=== PATIENT | female | born 1935 | race Caucasian/White ===

== ENCOUNTER → 2017-09-02 13:52 | Outpatient (CLI) | payer MEDICARE, OTHER, SELFPAY ==
--- NOTE | 2017-09-02 14:00 | ECHOD_ITS ---
Reason For Study: CAD/ASHD Procedure This was a 2D Doppler, Color Flow transthoracic echocardiogram. Exam performed in department. Left Ventricle Normal LV size. Sigmoid septum. Left ventricular systolic function is normal. The estimated ejection fraction is 60 %. Transmitral diastolic flow velocities suggest mild (stage 1) diastolic dysfunction (reversed pattern). No regional wall motion abnormalities noted. Right Ventricle Normal RV size. ICD or pacer leads identified within the right ventricle. Normal systolic function. Atria The left atrium is severely enlarged. The right atrium is mildly enlarged. Mitral Valve There is moderate mitral annular calcification. Mild-Moderate (1-2+) eccentric mitral valve insufficiency. An annuloplasty ring is noted in the mitral position. Tricuspid Valve Normal tricuspid valve. Mild (1+) tricuspid valve insufficiency. Pulmonary artery systolic pressure is 30 mmHg. Aortic Valve Trisinus/trileaflet aortic valve. Pulmonic Valve Normal pulmonic valve. Great Vessels Normal aortic root. The pulmonary artery is normal size. Normal inferior vena cava. Pericardium/Pleural No pericardial effusion. Medication 22 gauge I.V. with prn adaptor inserted into right arm. Diluted definity 2ml given slow IV push to enhance endocardial definition. MMode/2D Measurements & Calculations LVIDd: 3.0 cm IVSd: 2.1 cm Ao root diam: 3.7 cm LVIDs: 1.8 cm LVPWd: 1.1 cm LA dimension: 4.8 cm FS: 39.5 % LAV(MOD-bp): 100.7 ml LAV(MOD-bp) Indexed: 52.7 ml/m2 LA A4 area: 31.7 cm2 LAV(MOD-sp2): 78.3 ml LAV(MOD-sp4): 123.0 ml Time Measurements MV dec time: 0.23 sec Doppler Measurements & Calculations MV E max lavon: 127.3 cm/sec Lat Peak E' Lavon: 7.9 cm/sec MV V2 max: 190.7 cm/sec MV A max lavon: 163.9 cm/sec E/E' lat: 16.0 MV max P.5 mmHg MV E/A: 0.78 MV V2 mean: 110.1 cm/sec MV mean P.7 mmHg MV V2 VTI: 51.2 cm MV P1/2t max lavon: 146.4 cm/sec Ao V2 max: 138.7 cm/sec LV V1 max: 120.9 cm/sec MV P1/2t: 87.5 msec Ao max P.7 mmHg LV V1 max P.8 mmHg MV dec slope: 490.2 cm/sec2 Ao V2 mean: 94.7 cm/sec LV V1 mean P.0 mmHg MVA(P1/2t): 2.5 cm2 Ao mean P.0 mmHg LV V1 mean: 79.7 cm/sec Ao V2 VTI: 28.9 cm LV V1 VTI: 25.5 cm PA V2 max: 82.8 cm/sec TR max lavon: 262.0 cm/sec TR max P.5 mmHg Interpretation Summary Normal LV size. Left ventricular systolic function is normal. The estimated ejection fraction is 60 %. There is moderate mitral annular calcification. An annuloplasty ring is noted in the mitral position. Mild-Moderate (1-2+) eccentric mitral valve insufficiency. Contrast injection was performed. Ordering Physician: Gisele Pitts Referring Physician: Gisele Pitts Performed By: Jhony Tracey RCS
== END ==
PROVIDERS: Family Provider Internal Medicine; PCP Internal Medicine; Visit Provider Physician Assistant Medical
DX: R00.1 Bradycardia, unspecified (principal)
CPT/HCPCS: 93306; Q9957; A4216

== ENCOUNTER → 2017-09-26 09:01 | Outpatient (CLI) | payer MEDICARE, OTHER, SELFPAY ==
[2017-09-26 09:48] LABS: 24HR UR TOTAL VOLUME 1600 ml; Calcium Urine pH Range 1; Urine Calcium (Random) < 5.0 (Not Estab.)
== END ==
PROVIDERS: PCP Nurse Practitioner Family; Visit Provider Internal Medicine
DX: I10 Essential (primary) hypertension (principal); E78.4 Other hyperlipidemia; E03.9 Hypothyroidism, unspecified; M85.80 Other specified disorders of bone density and structure, unspecified site
CPT/HCPCS: 81050; 82340

== ENCOUNTER → 2018-01-07 08:44 | Outpatient (CLI) | payer MEDICARE, OTHER, SELFPAY ==
[2018-01-07 09:10] LABS: Absolute Neutrophil Count 2.8 X10^3/uL (2.0-7.7); Eosinophil# 0.02 X10^3/uL; Eosinophils% 0.5 % (0-5); Hematocrit 42.5 % (37-47); Hemoglobin 14.2 g/dl (12.0-15.0); Lymphocyte % 25.3 % (19-41); Mean Corp Hgb Conc 33.4 g/gl (32-36); Mean Corpuscular Hgb 30.6 pg (27.0-32.0); Mean Corpuscular Volume 91.6 fL (81-99); Mean Platelet Vol. 10.3 fl (6.2-12.0); Monocyte# 0.44 X10^3/uL; Monocyte% 10.1 % (0-10); Neutrophil # 2.76 X10^3/uL (2.7-7.7); Neutrophil % 63.6 % (47-70); Platelet Count 145 K/mm3 (150-450); RBC Distribution Width CV 14.6 % (11.6-14.6); RBC Distribution Width SD 47.2 fl (35.1-43.9); Red Blood Count 4.64 M/mm3 (4.2-5.4); White Blood Count 4.3 K/mm3 (4.4-11.0)
[2018-01-07 09:11] LABS: POSITIVE COUNT NO; POSITIVE DIFFERENTIAL NO; POSITIVE MORPHOLOGY NO
[2018-01-07 09:29] LABS: Hemoglobin A1c 5.3 % (4.2-6.3)
[2018-01-07 09:41] LABS: Vitamin B12 262 pg/mL (211-911)
[2018-01-07 09:42] LABS: ALB/GLOB Ratio 1.2 RATIO (0.9-2.4); AST(SGOT) 22 U/L (15-37); Alanine Aminotransfer ALT/SGPT 20 U/L (13-56); Albumin, Serum 3.8 g/dL (3.2-5.0); Alkaline Phosphatase 48 U/L (45-117); Anion Gap 9 (5-15); BUN 25 mg/dL (7-18); BUN/Creat Ratio 18.8 RATIO (10-20); Calcium,Total 8.7 mg/dL (8.5-10.1); Chloride 104 mmol/L (98-107); Cholesterol 134 mg/dL (200); Creatinine, Serum 1.33 mg/dL (0.55-1.02); EST Glomerular Filtration Rate 41 mL/min (>60); Est Glom Filt Rate - Afr Amer 49 mL/min (>60); Globulin 3.3 g/dL (2.2-4.2); Glucose 116 mg/dL (74-106); High Density Lipoprotein 41 mg/dL; Potassium 4.3 mmol/L (3.5-5.1); Protein, Total 7.1 g/dL (6.4-8.2); Sodium Level 142 mmol/L (136-145); Thyroid Stim Hormone (TSH) 2.76 uIU/mL (0.358-3.74); Triglycerides 210 mg/dL; Very Low Density Lipoprotein 42 mg/dL (5-40)
== END ==
PROVIDERS: Family Provider Internal Medicine; PCP Internal Medicine; Visit Provider Internal Medicine
DX: E78.4 Other hyperlipidemia (principal); E53.8 Deficiency of other specified B group vitamins; E03.9 Hypothyroidism, unspecified; M85.80 Other specified disorders of bone density and structure, unspecified site; E11.9 Type 2 diabetes mellitus without complications
CPT/HCPCS: 36415; 80053; 80061; 82306; 82607; 83036; 84443; 85025

== ENCOUNTER → 2018-01-26 10:05 | Outpatient (CLI) | payer MEDICARE, OTHER, SELFPAY ==
--- NOTE | 2018-01-26 10:07 | CDU_ITS ---
Reason For Study: Atherosclerosis Rt. Velocities/BP Lt. Velocities/BP Prox CCA 93/10 cm/sec. Prox CCA 93/16 cm/sec. Mid CCA 85/17 cm/sec. Mid CCA 70/16 cm/sec. Dist CCA 53/13 cm/sec. Dist CCA 61/14 cm/sec. Prox ICA 49/14 cm/sec. Prox ICA 69/18 cm/sec. Mid ICA 84/19 cm/sec. Mid ICA 96/20 cm/sec. Dist ICA 108/24 cm/sec. Dist ICA 123/31 cm/sec. Rt. ICA/CCA = 1.27. Lt. ICA/CCA = 1.76. Prox ECA 64/2 cm/sec. Prox ECA 86/4 cm/sec. Rt. Vert. 66/17 cm/sec. Lt. Vert. 68/17 cm/sec. Right Extracranial There is heterogeneous, irregular atherosclerotic plaque noted in the right common carotid artery. There is heterogeneous, irregular atherosclerotic plaque noted in the right internal carotid artery. There is heterogeneous, irregular atherosclerotic plaque noted in the right external carotid artery. Antegrade flow is noted in the right vertebral artery. Left Extracranial There is heterogeneous, irregular atherosclerotic plaque noted in the left common carotid artery. There is heterogeneous, irregular atherosclerotic plaque noted in the left internal carotid artery. The left internal carotid artery is very tortuous. There is heterogeneous, irregular atherosclerotic plaque noted in the left external carotid artery. Antegrade flow is noted in the left vertebral artery. Procedure Carotid Duplex [id number]. Exam performed in department. Interpretation Summary Mild (<50%) stenosis right extracranial internal carotid. Mild (<50%) stenosis left extracranial internal carotid. Flow within the vertebral arteries is antegrade bilaterally. Ordering Physician: Susie Dang Referring Physician: Susie Dang Performed By: Mague Vazquez, JERED, RVT
== END ==
PROVIDERS: Family Provider Internal Medicine; PCP Internal Medicine; Referring Provider Internal Medicine; Visit Provider Internal Medicine
DX: I65.23 Occlusion and stenosis of bilateral carotid arteries (principal)
CPT/HCPCS: 93880

== ENCOUNTER → 2018-05-19 08:45 | Outpatient (CLI) | payer MEDICARE, OTHER, SELFPAY ==
[2018-04-15 10:33] VITALS: BMI 28.7
--- NOTE | 2018-05-19 08:47 | ART_ITS ---
Reason For Study: PVD per Dr.order Left Segmental Pressures Left brachial= 137mmHg. Left posterior tibial artery = NCmmHg. Left dorsalis pedis artery = NCmmHg. Left digit = 119 mmHg. The left dorsalis pedis waveforms are triphasic. The left posterior tibial artery waveforms are triphasic. Right Segmental Pressures Right brachial= 140mmHg. Right posterior tibial artery = NCmmHg. Right dorsalis pedis artery = NCmmHg. Right digit = 118 mmHg. The right dorsalis pedis waveforms are triphasic. The right posterior tibial artery waveforms are triphasic. Indices The right ankle brachial index by the dorsalis pedis is NC. The right ankle brachial index by the posterior tibial artery is NC. The right digital-brachial index is .84. The left ankle brachial index by the dorsalis pedis is NC. The left ankle brachial index by the posterior tibial artery is NC. The left digital-brachial index is .85. Interpretation Summary 1. Bilateral LUZ ELENA noncompressible consistent with medial calcinosis. 2. Normal bilateral triphasic flow at the ankles. 3. Normal DBI 0.84/0.85. Ordering Physician: Susie Dang Referring Physician: Susie Dang Performed By: Svitlana Felder [facility]
== END ==
PROVIDERS: Family Provider Internal Medicine; PCP Internal Medicine; Referring Provider Internal Medicine; Visit Provider Internal Medicine
DX: I73.9 Peripheral vascular disease, unspecified (principal)
CPT/HCPCS: 93923

== ENCOUNTER → 2018-06-10 13:35 | Outpatient (CLI) | payer MEDICARE, OTHER, SELFPAY ==
[2018-05-20 10:30] VITALS: BMI 28.1
--- NOTE | 2018-06-10 13:45 | RAD_ITS ---
STUDY: X-RAY - RIGHT FOOT CLINICAL: Female, 82 years old. PAIN BIG TOE NO INJURY TECHNIQUE: 3 view(s) of the foot. COMPARISON: None. FINDINGS: Normal talus, calcaneus, and tarsal bones. Normal visualized subtalar, talonavicular, calcaneocuboid, tarsal and tarsometatarsal articulations. Normal metatarsi. Normal metatarsophalangeal joint of the great toe. Normal tibial and fibular sesamoid bones. Normal interphalangeal joint of the great toe. Normal phalanges of the great toe. Normal second through fifth metatarsophalangeal joints. Normal interphalangeal joints and phalanges of the lesser toes. There is non-specific soft tissue swelling of the foot. There is no demonstrated fracture. RAD/Foot min 3 Views IMPRESSION: No acute fracture, dislocation, or focal bony lesion. Electronically Signed: Norberto Crook MD at 20:10 EST , Service support ,
[2018-06-10 14:50] LABS: Absolute Lymphocyte Count 1.31 X10^3/ul (0.83-4.51); Absolute Neutrophil Count 3.7 X10^3/uL (2.0-7.7); Eosinophil# 0.02 X10^3/uL; Eosinophils% 0.3 % (0-5); Hematocrit 44.5 % (37-47); Hemoglobin 14.2 g/dl (12.0-15.0); Lymphocyte # 1.31 X10^3/ul (4.0); Lymphocyte % 22.9 % (19-41); Mean Corp Hgb Conc 31.9 g/gl (32-36); Mean Corpuscular Hgb 29.3 pg (27.0-32.0); Mean Corpuscular Volume 91.9 fL (81-99); Mean Platelet Vol. 10.2 fl (6.2-12.0); Monocyte# 0.66 X10^3/uL; Monocyte% 11.5 % (0-10); Neutrophil # 3.73 X10^3/uL (2.7-7.7); Neutrophil % 65.1 % (47-70); Platelet Count 145 K/mm3 (150-450); RBC Distribution Width CV 14.4 % (11.6-14.6); RBC Distribution Width SD 48.6 fl (35.1-43.9); Red Blood Count 4.84 M/mm3 (4.2-5.4); White Blood Count 5.7 K/mm3 (4.4-11.0)
[2018-06-10 14:51] LABS: POSITIVE COUNT NO; POSITIVE DIFFERENTIAL NO; POSITIVE MORPHOLOGY NO
[2018-06-10 14:53] LABS: Erythrocyte Sedimentation Rate 2 mm/hr (0-30)
[2018-06-10 16:00] LABS: Uric Acid 7.3 mg/dL (2.6-6.0)
== END ==
LOC: HPRAD 13:37 → LABSPEC 14:24
PROVIDERS: Family Provider Internal Medicine; PCP Internal Medicine; Referring Provider Internal Medicine; Visit Provider Internal Medicine
DX: M79.671 Pain in right foot (principal)
CPT/HCPCS: 73630; 84550; 85025; 85652; 86140

== ENCOUNTER → 2018-06-17 14:15 | Outpatient (CLI) | payer MEDICARE, OTHER, SELFPAY ==
[2018-04-15 10:33] VITALS: BMI 28.7
[2018-05-20 10:30] VITALS: BMI 28.1
--- NOTE | 2018-06-17 14:17 | BI_ITS ---
MAMMOGRAPHY - BILATERAL SCREENING REASON FOR EXAM: Female, 82 years old. Routine annual screening examination. PERTINENT HISTORY: Non-contributory. Remote right ultrasound-guided breast biopsies. TECHNIQUE: Digital bilateral breast frances (3D mammographic acquisition) in the CC and MLO projections. 2-D mediolateral oblique (MLO) and craniocaudad (CC) views of both breasts were obtained. CAD: Full Field Digital Mammography with Computer Added Detection was performed. COMPARISON: Comparison is made with prior study dated May 01, 2017 and April 10, 2016. FINDINGS: Breast Composition: The breasts are almost entirely fatty. There are no dominant masses or suspicious calcifications. A pacemaker battery pack is once again seen in the left axillary region. No other significant abnormalities are identified. There has been no significant change since the prior study. BI/SCREENING MAMM (CAD), BILAT IMPRESSION: Stable bilateral screening mammogram. Yearly follow-up mammogram recommended. (A) ASSESSMENT CATEGORY: BIRADS Category 2: Benign. A letter regarding these results will be sent to the patient by the facility within 30 days. Approximately 10% of breast cancers are not detected by mammography. A normal mammogram should not delay biopsy of a clinically suspicious abnormality. [id number] Electronically Signed: Denis Casillas, at 15:41 EST , Service support ,
== END ==
PROVIDERS: Family Provider Internal Medicine; PCP Internal Medicine; Referring Provider Internal Medicine; Visit Provider Internal Medicine
DX: Z12.31 Encounter for screening mammogram for malignant neoplasm of breast (principal)
CPT/HCPCS: 77063; 77067

== ENCOUNTER → 2018-06-27 14:46 | Outpatient (CLI) | payer MEDICARE, OTHER, SELFPAY ==
[2018-06-27 12:12] VITALS: BMI 27.8
[2018-06-27 14:47] LABS: Mucous, Urine 0 SEEN /hpf (<or=2+); Red Blood Cells-Urine 0 SEEN /hpf (0-5); Squamous Epithelial Cells - UA 0 SEEN /hpf (5-10)
[2018-06-27 14:54] LABS: Color, Urine Yellow (Yellow); Glucose, Dipstick Normal (Normal); Ketone-Dipstick Negative (Negative); Leukocyte Esterase-Dipstick 500 /ul (Negative); Nitrite-Dipstick Negative (Negative); Occult Blood-Urine 10 /ul (Negative); Protein-Dipstick Negative (Negative); Urine Bilirubin Dipstick Negative (Negative); Urine Clarity Clear (Clear); Urine Urobilinogen Normal (Normal)
[2018-06-27 15:00] LABS: Bacteria RARE /hpf (None Seen); White Blood Cells 10-25 SEEN /hpf (0-5)
== END ==
PROVIDERS: Family Provider Internal Medicine; PCP Internal Medicine; Referring Provider Physician Assistant Medical; Visit Provider Physician Assistant Medical
DX: R30.0 Dysuria (principal)
CPT/HCPCS: 81001; 87077; 87086; 87088; 87186

== ENCOUNTER 2018-07-17 09:39 | Emergency (ER) | payer MEDICARE, OTHER, SELFPAY ==
[2018-07-15 10:44] VITALS: BMI 28.5
[2018-07-17 09:40] VITALS: BP 144/88; PULSE 58; RESP 16; TEMP 36.7; O2SAT 94; BMI 27.3
--- NOTE | 2018-07-17 10:04 | ED.DCSUM_ITS ---
- ER Visit Summary Date of Service: 07/17/18 Chief Complaint: Vomiting and diarrhea History of Present Illness: The patient is a [address] edwards, Dr. Irby, and Dr. Gaffney. She reports that she has vomiting and diarrhea that began 2 days ago. She is vomited 4 times per day. She states that it is a brown liquid. She denies any blood. She is unsure about coffee grounds. She also reports that she is having diarrhea approximately 8 times per day. She denies any blood in her stools or black tarry stools. She reports that she has dull lower abdominal pain that is 6 out of 10 at worst and 2 out of 10 currently. Is worsened by vomiting and relieved by nothing. Patient denies sick contacts. She has not been camping or out of the country. She was on Keflex last week for a UTI. States that she had a urine sample yesterday by Dr. edwards that looked horrible and was sent for culture. She is also concerned that she may have food poisoning from tilapia that she ate the day that this began. She does not drink well water. She denies any fever or chills. No other complaints. Physical Examination: Vitals: Stable. Afebrile. General: Well-nourished and well-developed. Head: Normocephalic atraumatic. Neck: Supple, no lymphadenopathy. No JVD. Nontender. Cardiovascular: Bradycardic irregular rhythm with a 3 out of 6 systolic murmur. Respiratory: No respiratory distress. Clear to auscultation bilaterally. Abdominal: Soft, mild right upper quadrant and right lower quadrant tenderness to palpation, nondistended, normal bowel sounds. No guarding, rebound, or peritoneal signs. Back: Nontender. Extremities: Nontender, no edema. Skin: Normal color, no rash. Neurologic: Alert and oriented ?3. Cranial nerves II through XII are intact. Normal strength and sensation. Psych: Normal affect. Test Results: CBC shows a hemoglobin of 13.7, segmented neutrophils 76, lymphs at 15. Chem-7 shows a calcium of 8.4, glucose 140, BUN 23, creatinine 1.28. LFTs are normal. UA does show an infection with 5200 white blood cells, 4+ bacteria, and nitrites as well as leukocyte esterase. Clinical Impression(s) from Imaging Studies Abdomen/Pelvis CT 07/17/18 11:19 IMPRESSION: 1. A couple of borderline to mildly distended gas and fluid-filled small bowel loops are seen in the anterior mid abdomen to the left of midline. These show nonspecific transition back to normal caliber, so the significance is unclear, but a mild local ileus might be considered. There is colonic diverticulosis without acute diverticulitis. The appendix is not visualized. 2. Notable decrease of retroperitoneal adenopathy since the 2014 CT, the identifiable nodes today appearing normal to upper normal size. There is a mild degree of splenomegaly, but also improved from previous CT. 3. The gallbladder is nonvisualized. There is stable to slightly increased intra and extra hepatic bile duct ectasia. 4. Atherosclerotic vascular calcifications present. No demonstrated aortic aneurysm. 5. Stable appearing thickening at the base of the urinary bladder. No hydronephrosis. 6. Bilateral renal cortical cysts are more clearly identified today with IV contrast. 7. Stable elevation of left diaphragm with stable minor subsegmental atelectasis or scarring in the posterior inferior lung bases. Electronically Signed: Milan Colvin MD at 12:33 EDT , Service support , Emergency Department Course and Treatment: Patient had an IV placed. She is given a 500 cc bolus of normal saline. She was given Zofran IV. She refused pain medications. Patient had her urine sent for culture and was given Rocephin IV. She has not had a bowel movement. Treatment Plan: Patient was discussed with Dr. edwards. She will be discharged with Cipro and Zofran. When given the prescription patient reports that she is allergic to Cipro and that she has possible leg weakness from this. She was placed on Macrobid instead. Instructed to follow-up in 3-4 days for another exam. Return to the emergency department for any worsening symptoms. Disposition: To home in improved and stable condition. Impression: 1. UTI. 2. Vomiting/diarrhea. This note was generated with [employer] software. It may contain incorrect words, spelling, and punctuation that were not noted in review of the chart prior to signing ED Disposition - Plan for ED Patient: Instructions: ED UTI Cystitis Female, ED Vomiting Diarrhea Nonspecific Ad Prescriptions: Ondansetron [Zofran Odt] 4 mg PO Q8H PRN PRN #10 tablet PRN Reason: Nausea Nitrofurantoin Macrocrystals [Macrobid] 100 mg PO Q12 #10 capsule Referrals: Susie Edwards DO [Primary Care Provider] - 3-5 Days
[2018-07-17] MEDS: Ondansetron 4 MG/2 ML Vial IV (10:22)
[2018-07-17 10:24] VITALS: BP 124/54; BP 133/71; BP 139/50; PULSE 82; PULSE 88; PULSE 95
[2018-07-17 10:24] LABS: Absolute Lymphocyte Count 1.57 X10^3/ul (0.83-4.51); Absolute Neutrophil Count 7.8 X10^3/uL (2.0-7.7); Hemoglobin 13.7 g/dl (12.0-15.0); Lymphocyte # 1.57 X10^3/ul (4.0); Lymphocyte % 15.3 % (19-41); Mean Corp Hgb Conc 32.6 g/gl (32-36); Mean Corpuscular Hgb 29.1 pg (27.0-32.0); Mean Corpuscular Volume 89.4 fL (81-99); Mean Platelet Vol. 9.9 fl (6.2-12.0); Monocyte# 0.92 X10^3/uL; Neutrophil # 7.75 X10^3/uL (2.7-7.7); Neutrophil % 75.5 % (47-70); Platelet Count 165 K/mm3 (150-450); RBC Distribution Width CV 14.5 % (11.6-14.6); RBC Distribution Width SD 47.2 fl (35.1-43.9); White Blood Count 10.3 K/mm3 (4.4-11.0)
[2018-07-17 10:26] LABS: POSITIVE COUNT NO; POSITIVE DIFFERENTIAL NO; POSITIVE MORPHOLOGY NO
[2018-07-17 10:51] LABS: AST(SGOT) 19 U/L (15-37); Alanine Aminotransfer ALT/SGPT 14 U/L (13-56); Albumin, Serum 3.6 g/dL (3.2-5.0); Alkaline Phosphatase 48 U/L (45-117); Anion Gap 10 (5-15); BUN 23 mg/dL (7-18); Calcium,Total 8.4 mg/dL (8.5-10.1); Chloride 106 mmol/L (98-107); Creatinine, Serum 1.28 mg/dL (0.55-1.02); EST Glomerular Filtration Rate 42 mL/min (>60); Est Glom Filt Rate - Afr Amer 51 mL/min (>60); Estimated Creatinine Clearance 32.95 ml/min; Globulin 3.5 g/dL (2.2-4.2); Glucose 140 mg/dL (74-106); Potassium 3.9 mmol/L (3.5-5.1); Protein, Total 7.1 g/dL (6.4-8.2); Sodium Level 139 mmol/L (136-145)
--- NOTE | 2018-07-17 11:19 | CT_ITS ---
STUDY: CT ABDOMEN AND PELVIS WITH CONTRAST REASON FOR EXAM: Female, 82 years old. Nausea/vomiting/diarrhea x 3 days. RADIATION DOSAGE (If Supplied By Facility): CTDIvol = ( 15.60 ) mGy, DLP = ( 2009.69 ) mGycm TECHNIQUE: Transaxial images were obtained from the dome of the diaphragm to the symphysis pubis without oral contrast. 100 IV Isovue 300 was administered. Sagittal and coronal images were reconstructed. Individualized dose optimization techniques were used for this CT. COMPARISON: CT abdomen and pelvis March 25, 2014; bilateral renal ultrasound May 14, 2016. FINDINGS: Stable elevation of the left diaphragm. There is stable minor subsegmental atelectasis or scarring in the posterior inferior lung bases. The heart size is upper normal. There is calcification of the mitral valve. Leads of cardiac pacemaker are noted in the right heart. Patient has undergone prior median sternotomy. Incidental note of calcified lymph nodes at the right hilum. Normal liver. The patent portal vein diameter is 14 mm. There is non-visualization of the gallbladder, which may be secondary to either contraction or a prior cholecystectomy. There is intra and extrahepatic bile duct dilatation. The common bile duct diameter reaches 19 mm. There is mild splenomegaly, measuring 15.3 x 14.4 x 8.85 cm. This is notably decreased from previous CT. There are a few benign calcified granulomata of the spleen. Normal size and contour of the pancreas. Pancreatic duct diameter approaches 3-4 mm Normal bilateral adrenal glands. A normal size right kidney is rotated on its horizontal axis. There is a 12 mm cortical cyst at the lateral midpole, and anterior to this is a 3 mm subcapsular cyst. On the left, there is a 4 mm subcapsular cyst in the anterior hilar lip, and a close pair of subcentimeter cortical cysts are seen in the posterior upper pole. The right renal stone suggested by ultrasound is not apparent here. No hydronephrosis. Normal visualized stomach. There are couple of borderline to mildly distended gas and fluid-filled small bowel loops in the anterior mid abdomen to the left of midline with a nonspecific transition back to normal caliber. There are multiple colonic diverticula consistent with diverticulosis. The cecum resides in the right pelvic region to the right of the sigmoid colon. There is non-visualization of the appendix. There is moderately diffuse atherosclerotic calcification of the abdominal aorta, without a demonstrated aneurysm. Moderate atherosclerotic calcification also seen in the main trunk of the superior mesenteric artery. Normal inferior vena cava. Retroperitoneal lymph nodes have notably decreased in size. A left periaortic node below the left renal vein, for example, has decreased from 3.3 x 1.2 x 2.1 cm to 1.65 x 1.1 x 0.95 cm. Enlarged nodes that were nearly inseparable from the pancreatic head and other structures near the jacki hepatis on prior exam now only measure 1 cm in greatest diameter. No new adenopathy. The base of the urinary bladder appears thick walled, but unchanged. The incompletely distended bladder is otherwise unremarkable. There is absence of the uterus consistent with a prior hysterectomy. Normal abdominal wall. There are stable multilevel degenerative changes of the visualized lumbar spine and mild degenerative changes of the sacroiliac joints. CT/Abdomen/Pelvis W IV Cont ONLY IMPRESSION: 1. A couple of borderline to mildly distended gas and fluid-filled small bowel loops are seen in the anterior mid abdomen to the left of midline. These show nonspecific transition back to normal caliber, so the significance is unclear, but a mild local ileus might be considered. There is colonic diverticulosis without acute diverticulitis. The appendix is not visualized. 2. Notable decrease of retroperitoneal adenopathy since the 2014 CT, the identifiable nodes today appearing normal to upper normal size. There is a mild degree of splenomegaly, but also improved from previous CT. 3. The gallbladder is nonvisualized. There is stable to slightly increased intra and extra hepatic bile duct ectasia. 4. Atherosclerotic vascular calcifications present. No demonstrated aortic aneurysm. 5. Stable appearing thickening at the base of the urinary bladder. No hydronephrosis. 6. Bilateral renal cortical cysts are more clearly identified today with IV contrast. 7. Stable elevation of left diaphragm with stable minor subsegmental atelectasis or scarring in the posterior inferior lung bases. Electronically Signed: Milan Colvin MD at 12:33 EDT , Service support ,
[2018-07-17 11:20] VITALS: BP 149/68; PULSE 87; RESP 18; O2SAT 97
[2018-07-17 11:31] LABS: Color, Urine Yellow (Yellow); Glucose, Dipstick Normal (Normal); Ketone-Dipstick Negative (Negative); Leukocyte Esterase-Dipstick 500 /ul (Negative); Mucous, Urine 0 SEEN /hpf (<or=2+); Nitrite-Dipstick Positive (Negative); Occult Blood-Urine 50 /ul (Negative); Protein-Dipstick 30 mg/dl (Negative); Urine Bilirubin Dipstick Negative (Negative); Urine Clarity Cloudy (Clear); Urine Urobilinogen Normal (Normal)
[2018-07-17 11:37] LABS: White Blood Cells 50-100 SEEN /hpf (0-5)
[2018-07-17 11:38] LABS: Bacteria 4+ /hpf (None Seen); Red Blood Cells-Urine 0-5 SEEN /hpf (0-5); Squamous Epithelial Cells - UA 0-5 SEEN /hpf (5-10)
[2018-07-17] MEDS: Ceftriaxone 1 GM/50 ML BAG IV (12:21)
[2018-07-17 13:27] VITALS: BP 136/62; PULSE 84; RESP 21; O2SAT 98
[2018-07-17 13:56] VITALS: BP 133/57; PULSE 78; RESP 21; O2SAT 96
--- NOTE | 2018-07-17 13:57 | ED.RN ---
IV DC'ED, CATHETER INTACT, SMALL GAUZE DRESSING PLACED. DISCHARGE INSTRUCTIONS GIVEN TO AND REVIEWED WITH PATIENT, PATIENT DENIES QUESTIONS OR CONCERNS AND VOICES UNDERSTANDING OF DISCHARGE INSTRUCTIONS. PT AMBULATES OUT OF ROOM WITHOUT DIFFICULTY.
== END 2018-07-17 14:31 | disposition home or self-care (01) ==
LOC: ED 10:21
PROVIDERS: Emergency Provider Emergency Medicine; Family Provider Internal Medicine; PCP Internal Medicine
DX: N39.0 Urinary tract infection, site not specified (principal); R11.0 Nausea; R19.7 Diarrhea, unspecified; I25.10 Atherosclerotic heart disease of native coronary artery without angina pectoris; I27.20 Pulmonary hypertension, unspecified; I10 Essential (primary) hypertension; Z95.1 Presence of aortocoronary bypass graft; Z95.0 Presence of cardiac pacemaker; Z79.01 Long term (current) use of anticoagulants; Z79.82 Long term (current) use of aspirin; Z79.899 Other long term (current) drug therapy
CPT/HCPCS: 74177; 80053; 81001; 85025; 87086; 87088; 87186; 96361; 96365; 96375; 99284; J7030; J7040; J7050; Q9967; A4216; J2405

== ENCOUNTER → 2018-08-04 08:23 | Outpatient (CLI) | payer MEDICARE, OTHER, SELFPAY ==
[2018-07-17 09:40] VITALS: BMI 27.3
[2018-08-04 09:06] LABS: Absolute Lymphocyte Count 1.42 X10^3/ul (0.83-4.51); Absolute Neutrophil Count 2.8 X10^3/uL (2.0-7.7); Eosinophil# 0.05 X10^3/uL; Hematocrit 44.3 % (37-47); Hemoglobin 14.3 g/dl (12.0-15.0); Lymphocyte # 1.42 X10^3/ul (4.0); Lymphocyte % 29.4 % (19-41); Mean Corp Hgb Conc 32.3 g/gl (32-36); Mean Corpuscular Hgb 29.1 pg (27.0-32.0); Mean Platelet Vol. 10.1 fl (6.2-12.0); Monocyte# 0.53 X10^3/uL; Neutrophil # 2.82 X10^3/uL (2.7-7.7); Neutrophil % 58.4 % (47-70); Platelet Count 164 K/mm3 (150-450); RBC Distribution Width CV 14.6 % (11.6-14.6); RBC Distribution Width SD 47.7 fl (35.1-43.9); Red Blood Count 4.92 M/mm3 (4.2-5.4); White Blood Count 4.8 K/mm3 (4.4-11.0)
[2018-08-04 09:08] LABS: POSITIVE COUNT NO; POSITIVE DIFFERENTIAL NO; POSITIVE MORPHOLOGY NO
[2018-08-04 09:31] LABS: ALB/GLOB Ratio 1.4 RATIO (0.9-2.4); AST(SGOT) 17 U/L (15-37); Alanine Aminotransfer ALT/SGPT 17 U/L (13-56); Alkaline Phosphatase 47 U/L (45-117); Anion Gap 4 (5-15); BUN 20 mg/dL (7-18); BUN/Creat Ratio 17.5 RATIO (10-20); Calcium,Total 8.7 mg/dL (8.5-10.1); Chloride 107 mmol/L (98-107); Cholesterol 131 mg/dL (200); Creatinine, Serum 1.14 mg/dL (0.55-1.02); EST Glomerular Filtration Rate 48 mL/min (>60); Est Glom Filt Rate - Afr Amer 59 mL/min (>60); Globulin 2.9 g/dL (2.2-4.2); Glucose 109 mg/dL (74-106); High Density Lipoprotein 41 mg/dL; Potassium 4.4 mmol/L (3.5-5.1); Protein, Total 6.9 g/dL (6.4-8.2); Sodium Level 140 mmol/L (136-145); Triglycerides 220 mg/dL; Very Low Density Lipoprotein 44 mg/dL (5-40)
[2018-08-04 09:38] LABS: Vitamin B12 304 pg/mL (211-911)
[2018-08-04 16:28] LABS: Xtra Tube EP Lab EXTRA TUBE
[2018-08-05 11:11] LABS: Immunoglobulin G 628 mg/dL (700-1600)
== END ==
PROVIDERS: Internal Medicine Medical Oncology; Family Provider Internal Medicine; PCP Internal Medicine; Referring Provider Internal Medicine; Visit Provider Internal Medicine
DX: E78.49 Other hyperlipidemia (principal); E53.8 Deficiency of other specified B group vitamins; I10 Essential (primary) hypertension; E03.9 Hypothyroidism, unspecified
CPT/HCPCS: 36415; 80053; 80061; 82607; 82784; 84443; 85025

== ENCOUNTER → 2018-11-09 07:08 | Outpatient (CLI) | payer MEDICARE, OTHER, SELFPAY ==
[2018-11-03 12:49] VITALS: BMI 28.6
[2018-11-09 07:54] LABS: Absolute Lymphocyte Count 1.39 X10^3/uL (0.83-4.51); Absolute Neutrophil Count 2.3 X10^3/uL (2.0-7.7); Eosinophil# 0.07 X10^3/uL; Eosinophils% 1.7 % (0-5); Hematocrit 46.2 % (37-47); Hemoglobin 14.6 g/dL (12.0-15.0); Lymphocyte # 1.39 X10^3/ul (4.0); Lymphocyte % 33.2 % (19-41); Mean Corp Hgb Conc 31.6 g/dL (32-36); Mean Corpuscular Hgb 28.9 pg (27.0-32.0); Mean Corpuscular Volume 91.3 fL (81-99); Mean Platelet Vol. 10.2 fl (6.2-12.0); Monocyte# 0.43 X10^3/uL; Monocyte% 10.3 % (0-10); NRBC Flagged by Analyzer 0 % (0-5); Neutrophil # 2.29 X10^3/uL (2.7-7.7); Neutrophil % 54.6 % (47-70); Platelet Count 156 K/mm3 (150-450); RBC Distribution Width CV 13.9 % (11.6-14.6); RBC Distribution Width SD 46.9 fl (35.1-43.9); Red Blood Count 5.06 M/mm3 (4.2-5.4); White Blood Count 4.2 K/mm3 (4.4-11.0)
[2018-11-09 08:03] LABS: Hemoglobin A1c 5.5 % (4.2-6.3)
[2018-11-09 08:15] LABS: ALB/GLOB Ratio 1.4 RATIO (0.9-2.4); AST(SGOT) 17 U/L (15-37); Alanine Aminotransfer ALT/SGPT 16 U/L (13-56); Albumin, Serum 4.1 g/dL (3.2-5.0); Alkaline Phosphatase 55 U/L (45-117); Anion Gap 9 (5-15); BUN 21 mg/dL (7-18); BUN/Creat Ratio 16.7 RATIO (10-20); Calcium,Total 9.1 mg/dL (8.5-10.1); Chloride 110 mmol/L (98-107); Cholesterol 126 mg/dL (200); Creatinine, Serum 1.26 mg/dL (0.55-1.02); EST Glomerular Filtration Rate 43 mL/min (>60); Est Glom Filt Rate - Afr Amer 52 mL/min (>60); Glucose 124 mg/dL (74-106); High Density Lipoprotein 43 mg/dL; LDH 202 U/L (84-246); Potassium 4.6 mmol/L (3.5-5.1); Protein, Total 7.1 g/dL (6.4-8.2); Sodium Level 145 mmol/L (136-145); Triglycerides 211 mg/dL; Very Low Density Lipoprotein 42 mg/dL (5-40)
[2018-11-10 05:06] LABS: Immunoglobulin G 587 mg/dL (700-1600)
[2018-11-10 09:47] LABS: Vitamin B12 284 pg/mL (211-911)
[2018-11-10 11:26] LABS: Immunoglobulin A 7 mg/dL (64-422); Immunoglobulin M 8 mg/dL (26-217)
== END ==
PROVIDERS: Internal Medicine Medical Oncology; Family Provider Internal Medicine; PCP Internal Medicine; Referring Provider Internal Medicine; Visit Provider Internal Medicine
DX: I10 Essential (primary) hypertension (principal); E11.9 Type 2 diabetes mellitus without complications; E53.8 Deficiency of other specified B group vitamins; D80.1 Nonfamilial hypogammaglobulinemia; R80.9 Proteinuria, unspecified
CPT/HCPCS: 36415; 80053; 80061; 82607; 82784; 83036; 83615; 85025

== ENCOUNTER → 2019-02-03 16:44 | Outpatient (CLI) | payer MEDICARE, OTHER, SELFPAY ==
[2019-01-14 10:11] VITALS: BMI 28.3
--- NOTE | 2019-02-03 16:46 | CT_ITS ---
STUDY: CT CERVICAL SPINE WITHOUT CONTRAST REASON FOR EXAM: Female, 83 years old. Neck and left arm radiculopathy RADIATION DOSAGE (If Supplied By Facility): CTDIvol = ( 21.24 ) mGy, DLP = ( 436.24 ) mGycm TECHNIQUE: High resolution transaxial imaging was performed without contrast material. Sagittal and coronal images were reconstructed. Individualized dose optimization techniques were used for this CT. COMPARISON: CT cervical spine 11/24/2016 FINDINGS: Normal craniovertebral junction. There are degenerative changes at C1-C2. There is a cardiac pacemaker noted. There are sternal wires. There is loss of the normal cervical lordosis. There are no fractures. Normal vertebral bodies and posterior osseous elements. C2-3: Normal endplates. Normal disc height and morphology. Normal central canal and intervertebral neuroforamina. C3-4: There is mild posterior bulging annulus.. Normal central canal and intervertebral neuroforamina. There are moderate facet degenerative changes. C4-5: There is disc space narrowing. There is significant uncinate hypertrophy. There is posterior disc protrusion small superior central extrusion slightly larger in size when compared to prior exam. There is mild increased cord compression with mild worsening moderate central canal stenosis. There is stable mild bilateral foraminal stenosis. There are stable mild facet degenerative changes C5-6: There is disc space narrowing and mild disc osteophyte complex. There is significant uncinate hypertrophy. There is no left foraminal stenosis. There is borderline right foraminal stenosis. There is borderline central canal narrowing C6-7: There is new central disc protrusion with mild new epidural soft tissue density secondary to superior extrusion noted posterior to the C6 vertebral body superior to the intervertebral disc. There is new mild central canal stenosis with mild effacement on the thecal sac and spinal cord. No foraminal stenosis. C7-T1: Normal endplates. Normal disc height and morphology. Normal central canal and intervertebral neuroforamina. Normal visualized soft tissue structures. CT/Spine Cervical without Contras IMPRESSION: Multilevel spondylosis which demonstrates mild worsening when compared to prior exam Loss of normal cervical lordosis likely due to muscular spasm At C4-C5 there is posterior disc protrusion small superior central extrusion slightly larger in size when compared to prior exam. There is mild increased cord compression with mild worsening moderate central canal stenosis. There is stable mild bilateral foraminal stenosis. At C6-C7 there is new central disc protrusion with mild new epidural soft tissue density secondary to superior extrusion noted posterior to the C6 vertebral body superior to the intervertebral disc. There is new mild central canal stenosis with mild effacement on the thecal sac and spinal cord. Electronically Signed: William Castro, at 4:35 EDT Tel , Service support ,
== END ==
PROVIDERS: Family Provider Internal Medicine; PCP Internal Medicine; Referring Provider Nurse Practitioner Family; Visit Provider Nurse Practitioner Family
DX: M47.812 Spondylosis without myelopathy or radiculopathy, cervical region (principal); M50.30 Other cervical disc degeneration, unspecified cervical region
CPT/HCPCS: 72125

== ENCOUNTER → 2019-03-03 09:50 | Outpatient (CLI) | payer MEDICARE, OTHER, SELFPAY ==
[2019-01-14 10:11] VITALS: BMI 28.3
--- NOTE | 2019-03-03 09:54 | CDU_ITS ---
Reason For Study: Carotid Arteriosclerosis Rt. Velocities/BP Lt. Velocities/BP Prox CCA 84/14 cm/sec. Prox CCA 81/11 cm/sec. Mid CCA 75/20 cm/sec. Mid CCA 78/16 cm/sec. Dist CCA 60/12 cm/sec. Dist CCA 70/14 cm/sec. Prox ICA 60/13 cm/sec. Prox ICA 86/20 cm/sec. Mid ICA 89/19 cm/sec. Mid ICA 81/16 cm/sec. Dist ICA 94/19 cm/sec. Dist ICA 68/18 cm/sec. Rt. ICA/CCA = 1.3. Lt. ICA/CCA = 1.1. Prox ECA 87/13 cm/sec. Prox ECA 92/7 cm/sec. Rt. Vert. 73/15 cm/sec. Lt. Vert. 56/11 cm/sec. Right Extracranial There is heterogeneous, irregular atherosclerotic plaque noted in the right common carotid artery. There is heterogeneous, irregular atherosclerotic plaque noted in the right internal carotid artery. There is heterogeneous, irregular atherosclerotic plaque noted in the right external carotid artery. Antegrade flow is noted in the right vertebral artery. Left Extracranial There is heterogeneous, irregular atherosclerotic plaque noted in the left common carotid artery. There is heterogeneous, irregular atherosclerotic plaque noted in the left internal carotid artery. The left internal carotid artery is very tortuous. There is heterogeneous, irregular atherosclerotic plaque noted in the left external carotid artery. Antegrade flow is noted in the left vertebral artery. Procedure Carotid Duplex [id number]. Exam performed in department. Interpretation Summary Mild (<50%) stenosis right extracranial internal carotid. Mild (<50%) stenosis left extracranial internal carotid. Flow within the vertebral arteries is antegrade bilaterally. Ordering Physician: Susie Dang Referring Physician: Susie Dang Performed By: Mague Vazquez, JERED, RVT
== END ==
PROVIDERS: Family Provider Internal Medicine; PCP Internal Medicine; Referring Provider Internal Medicine; Visit Provider Internal Medicine
DX: I65.23 Occlusion and stenosis of bilateral carotid arteries (principal)
CPT/HCPCS: 93880

== ENCOUNTER → 2019-03-18 12:31 | Outpatient (CLI) | payer MEDICARE, OTHER, SELFPAY ==
[2019-03-18 12:28] VITALS: BMI 12.2
--- NOTE | 2019-03-18 12:34 | RAD_ITS ---
STUDY: X-RAY CHEST REASON FOR EXAM: Female, 83 years old. Cough. TECHNIQUE: PA and lateral views of the chest. COMPARISON: Comparison is made with prior study of March 12, 2016. FINDINGS: Calcified granuloma in the right mid lung. Stable mild increased markings at the lung bases suggestive of mild scarring. There is no demonstrated pleural abnormality. Sternal cerclage wires and vascular clips are present from a prior sternotomy and coronary artery bypass graft procedure (CABG). A left-sided dual-chamber pacemaker is seen. Normal mediastinum and miguel. Normal visualized pulmonary arteries. There is atherosclerotic calcification of the aortic arch with tortuosity. There is demineralization of the osseous structures. Normal visualized ribs, clavicles, and shoulders. There is no demonstrated abnormality of the visualized soft tissue structures of the upper abdomen. RAD/Chest PA and Lateral IMPRESSION: No acute abnormality is seen. Electronically Signed: Denis Casillas, at 13:15 EST , Service support ,
== END ==
PROVIDERS: Family Provider Internal Medicine; PCP Internal Medicine; Referring Provider Physician Assistant; Visit Provider Physician Assistant
DX: R05 Cough (principal)
CPT/HCPCS: 71046

== ENCOUNTER → 2019-06-30 11:13 | Outpatient (CLI) | payer MEDICARE, OTHER, SELFPAY ==
[2019-05-19 11:20] VITALS: BMI 27.7
[2019-06-16 10:30] VITALS: BMI 27.6
--- NOTE | 2019-06-30 11:16 | BD_ITS ---
STUDY: DUAL ENERGY X-RAY ABSORPTIOMETRY / DXA REASON FOR EXAM: Female, 83 years old. 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 COMPARISON: Comparison is made with prior examination dated May 01, 2017. FINDINGS: Lumbar Spine (L1-L4): g/cm2 (1.342) / T-score (1.4) / Z-score (3.3) Findings are suggestive of normal bone density with a low fracture risk. Left Femur Total: g/cm2 (0.769) / T-score (-1.9) / Z-score (0.3) Left Femoral Neck: g/cm2 (0.839) / T-score (-1.4) / Z-score (0.9) Right Femur Total: g/cm2 (0.775) / T-score (-1.8) / Z-score (0.4) Right Femoral Neck: g/cm2 (0.858) / T-score (-1.3) / Z-score (1.0) The T-Scores on the most recent prior examination were: Lumbar Spine (L1-L4): There has been worsening of bone density since the previous examination. Left Femur Total: which represents a worsening of 14%. Right Femur Total: which represents a worsening of 9.1%. BD/Dexa Bone Density Study IMPRESSION: The patient is considered osteopenic as outlined below according to World [employer] (WHO) criteria with a moderate fracture risk. There has been worsening of bone density since the previous examination. Reference Information: The T-score is the number of standard deviations above or below the standard which is normal for young adults at their peak bone mineral density. The World Health Organization (WHO) interprets the T-scores as follows: Above -1 Normal bone density Between -1 and -2.5 Osteopenia Equal to / or below -2.5 Osteoporosis As a practical clinical guideline, osteopenia may be graded as follows: Mild -1 through -1.5 Moderate -1.6 through -2.0 Severe -2.1 through -2.4 The Z-score is the number of standard deviations above or below age-matched controls. A Z-score of less than -1.5 would be considered abnormal. References: 1. NIH Osteoporosis and Related Bone Diseases http://www.osteo.org 2. International Society for Clinical Densitometry http://www.iscd.org 3. National Osteoporosis Foundation http://www.nof.org Electronically Signed: Denis Casillas, at 13:33 EDT , Service support ,
--- NOTE | 2019-06-30 11:17 | BI_ITS ---
MAMMOGRAPHY - BILATERAL SCREENING REASON FOR EXAM: Female, 83 years old. Routine annual screening examination. PERTINENT HISTORY: Non-contributory. TECHNIQUE: Digital bilateral breast linda (3D mammographic acquisition) in the CC and MLO projections. 2-D mediolateral oblique (MLO) and craniocaudad (CC) views of both breasts were obtained. CAD: Full Field Digital Mammography with Computer Added Detection was performed. COMPARISON: Comparison is made with prior study dated June 17, 2018. FINDINGS: Breast Composition: The breasts are almost entirely fatty. There are no dominant masses or suspicious calcifications. A pacemaker battery pack is seen in the left axillary region. No other significant abnormalities are identified. There has been no significant change since the prior study. BI/SCREEN MAMM (CAD) W/LINDA BILAT IMPRESSION: Stable bilateral screening mammogram. Yearly follow-up mammogram recommended. (A) ASSESSMENT CATEGORY: BIRADS Category 1: Negative. A letter regarding these results will be sent to the patient by the facility within 30 days. Approximately 10% of breast cancers are not detected by mammography. A normal mammogram should not delay biopsy of a clinically suspicious abnormality. [id number] Electronically Signed: Denis Casillas, at 14:53 EDT , Service support ,
== END ==
PROVIDERS: PCP Internal Medicine; Referring Provider Internal Medicine; Visit Provider Internal Medicine
DX: Z12.31 Encounter for screening mammogram for malignant neoplasm of breast (principal); Z78.0 Asymptomatic menopausal state
CPT/HCPCS: 77063; 77067; 77080

== ENCOUNTER → 2019-12-24 14:56 | Outpatient (CLI) | payer MEDICARE, OTHER, SELFPAY ==
[2019-12-08 09:55] VITALS: BMI 27.3
[2019-12-24 16:20] LABS: Body Fluid QC Type(s) BF1Q; Source- Body Fluid SYNOVIAL
[2019-12-24 16:30] LABS: CRYSTALS, BODY FLUID See PATH REV
[2019-12-27 14:19] LABS: Pathologist Review Reviewed
== END ==
PROVIDERS: PCP Internal Medicine; Referring Provider Podiatrist; Visit Provider Podiatrist
DX: M10.9 Gout, unspecified (principal)
CPT/HCPCS: 87070; 87075; 87205; 89060

== ENCOUNTER → 2019-12-25 10:33 | Outpatient (CLI) | payer MEDICARE, OTHER, SELFPAY ==
[2019-12-08 09:55] VITALS: BMI 27.3
[2019-12-25 11:24] LABS: Absolute Lymphocyte Count 1.28 X10^3/uL (0.83-4.51); Absolute Neutrophil Count 5.4 X10^3/uL (2.0-7.7); Eosinophil# 0.01 X10^3/uL; Eosinophils% 0.1 % (0-5); Hematocrit 43.2 % (37-47); Hemoglobin 13.7 g/dL (12.0-15.0); Lymphocyte # 1.28 X10^3/ul (4.0); Lymphocyte % 17.4 % (19-41); Mean Corp Hgb Conc 31.7 g/dL (32-36); Mean Corpuscular Hgb 29.8 pg (27.0-32.0); Mean Corpuscular Volume 93.9 fL (81-99); Mean Platelet Vol. 10.1 fl (6.2-12.0); Monocyte# 0.59 X10^3/uL; NRBC Flagged by Analyzer 0 % (0-5); Neutrophil # 5.42 X10^3/uL (2.7-7.7); Platelet Count 248 K/mm3 (150-450); RBC Distribution Width CV 13.5 % (11.6-14.6); RBC Distribution Width SD 46.6 fl (35.1-43.9); White Blood Count 7.3 K/mm3 (4.4-11.0)
[2019-12-25 11:58] LABS: AST(SGOT) 14 U/L (15-37); Alanine Aminotransfer ALT/SGPT 16 U/L (13-56); Albumin, Serum 3.8 g/dL (3.2-5.0); Alkaline Phosphatase 65 U/L (45-117); Anion Gap 5 (5-15); BUN 26 mg/dL (7-18); BUN/Creat Ratio 19.5 RATIO (10-20); Calcium,Total 9.6 mg/dL (8.5-10.1); Chloride 102 mmol/L (98-107); Creatinine, Serum 1.33 mg/dL (0.55-1.02); EST Glomerular Filtration Rate 40 mL/min (>60); Est Glom Filt Rate - Afr Amer 49 mL/min (>60); Globulin 3.9 g/dL (2.2-4.2); Glucose 106 mg/dL (74-106); Potassium 4.5 mmol/L (3.5-5.1); Protein, Total 7.7 g/dL (6.4-8.2); Sodium Level 138 mmol/L (136-145); Uric Acid 8.5 mg/dL (2.6-6.0)
== END ==
PROVIDERS: PCP Internal Medicine; Referring Provider Podiatrist; Visit Provider Podiatrist
DX: M10.9 Gout, unspecified (principal)
CPT/HCPCS: 36415; 80053; 84550; 85025

== ENCOUNTER → 2020-02-16 13:09 | Outpatient (CLI) | payer MEDICARE, OTHER, SELFPAY ==
[2019-12-08 09:55] VITALS: BMI 27.3
[2020-02-02 09:49] VITALS: BMI 27.7
--- NOTE | 2020-02-16 13:11 | CDU_ITS ---
Reason For Study: Atherosclerosis of carotid artery Rt. Velocities/BP Lt. Velocities/BP Prox CCA 68.2/8.2 cm/sec. Prox CCA 65.4/8.8 cm/sec. Mid CCA 69.5/10.8 cm/sec. Mid CCA 63.5/9.7 cm/sec. Dist CCA 56.5/10.8 cm/sec. Dist CCA 52.2/7.8 cm/sec. Prox ICA 60.4/13.4 cm/sec. Prox ICA 90/13.9 cm/sec. Mid ICA 74.7/14.7 cm/sec. Mid ICA 83.9/16.3 cm/sec. Dist ICA 79.9/17.3 cm/sec. Dist ICA 97.4/24.9 cm/sec. Rt. ICA/CCA = 1.17. Lt. ICA/CCA = 1.53. Prox ECA 57.8 cm/sec. Prox ECA 62.6 cm/sec. Rt. Vert. 43.7/10.7 cm/sec. Lt. Vert. 46.6/14.5 cm/sec. Right Extracranial There is homogeneous, smooth atherosclerotic plaque noted in the right common carotid artery. There is heterogeneous, irregular atherosclerotic plaque noted in the right internal carotid artery. There is heterogeneous, irregular atherosclerotic plaque noted in the right external carotid artery. Antegrade flow is noted in the right vertebral artery. Left Extracranial There is homogeneous, smooth atherosclerotic plaque noted in the left common carotid artery. There is heterogeneous, irregular atherosclerotic plaque noted in the left internal carotid artery. There is heterogeneous, irregular atherosclerotic plaque noted in the left external carotid artery. Antegrade flow is noted in the left vertebral artery. Procedure Carotid Duplex [id number]. This is a Carotid Duplex examination using B-mode, color flow and specral Doppler. Exam performed in department. Interpretation Summary Mild (<50%) stenosis right extracranial internal carotid. Mild (<50%) stenosis left extracranial internal carotid. Flow within the vertebral arteries is antegrade bilaterally. Ordering Physician: Susie Dang Referring Physician: Susie Dang D.O. Performed By: Brooke Torres RVT and Student
== END ==
PROVIDERS: PCP Internal Medicine; Referring Provider Internal Medicine; Visit Provider Internal Medicine
DX: I65.23 Occlusion and stenosis of bilateral carotid arteries (principal)
CPT/HCPCS: 93880

== ENCOUNTER → 2020-06-30 12:55 | Outpatient (CLI) | payer MEDICARE, OTHER, SELFPAY ==
[2020-04-26 09:47] VITALS: BMI 27.3
[2020-06-21 13:37] VITALS: BMI 27.3
--- NOTE | 2020-06-30 12:39 | BI_ITS ---
MAMMOGRAPHY - BILATERAL SCREENING REASON FOR EXAM: Female, 84 years old. Routine annual screening examination. PERTINENT HISTORY: Non-contributory. History of remote right ultrasound-guided breast biopsy. TECHNIQUE: Digital bilateral breast linda (3D mammographic acquisition) in the CC and MLO projections. 2-D mediolateral oblique (MLO) and craniocaudad (CC) views of both breasts were obtained. CAD: Full Field Digital Mammography with Computer Added Detection was performed. COMPARISON: Comparison is made with prior study dated 06/30/2019 and 06/17/2018. FINDINGS: Breast Composition: The breasts are almost entirely fatty. There are no dominant masses or suspicious calcifications. A pacemaker battery pack is seen in the left axillary region. No other significant abnormalities are identified. There has been no significant change since the prior study. BI/SCRN MAMM (CAD)W/LINDA BILAT IMPRESSION: Stable bilateral screening mammogram. Yearly follow-up mammogram recommended. (A) ASSESSMENT CATEGORY: BIRADS Category 2: Benign. A letter regarding these results will be sent to the patient by the facility within 30 days. Approximately 10% of breast cancers are not detected by mammography. A normal mammogram should not delay biopsy of a clinically suspicious abnormality. [id number] Electronically Signed: Denis Casillas MD at 13:47 EDT , Service support ,
== END ==
PROVIDERS: PCP Internal Medicine; Referring Provider Internal Medicine; Visit Provider Internal Medicine
DX: Z12.31 Encounter for screening mammogram for malignant neoplasm of breast (principal)
CPT/HCPCS: 77063; 77067

== ENCOUNTER → 2020-07-31 09:09 | Outpatient (CLI) | payer MEDICARE, OTHER, SELFPAY ==
[2020-07-19 10:02] VITALS: BMI 28.0
[2020-07-31 09:44] LABS: Absolute Lymphocyte Count 1.27 X10^3/uL (0.83-4.51); Absolute Neutrophil Count 4.2 X10^3/uL (2.0-7.7); Eosinophil# 0.06 X10^3/uL; Hematocrit 44.8 % (37-47); Hemoglobin 14.3 g/dL (12.0-15.0); Lymphocyte # 1.27 X10^3/ul (0.83-4.51); Mean Corp Hgb Conc 31.9 g/dL (32-36); Mean Corpuscular Hgb 30.3 pg (27.0-32.0); Mean Corpuscular Volume 94.9 fL (81-99); Mean Platelet Vol. 9.9 fl (6.2-12.0); Monocyte# 0.45 X10^3/uL; Monocyte% 7.5 % (0-10); NRBC Flagged by Analyzer 0 % (0-5); Neutrophil # 4.24 X10^3/uL (2.7-7.7); Neutrophil % 70.2 % (47-70); Platelet Count 197 K/mm3 (150-450); RBC Distribution Width CV 13.2 % (11.6-14.6); RBC Distribution Width SD 46.4 fl (35.1-43.9); Red Blood Count 4.72 M/mm3 (4.2-5.4)
[2020-07-31 09:54] LABS: ALB/GLOB Ratio 1.4 RATIO (0.9-2.4); AST(SGOT) 16 U/L (15-37); Alanine Aminotransfer ALT/SGPT 19 U/L (13-56); Alkaline Phosphatase 51 U/L (45-117); Anion Gap 3 (5-15); BUN 17 mg/dL (7-18); BUN/Creat Ratio 14.4 RATIO (10-20); Calcium,Total 9.2 mg/dL (8.5-10.1); Chloride 104 mmol/L (98-107); Cholesterol 121 mg/dL (200); Creatinine, Serum 1.18 mg/dL (0.55-1.02); EST Glomerular Filtration Rate 46 mL/min (>60); Est Glom Filt Rate - Afr Amer 56 mL/min (>60); Globulin 2.8 g/dL (2.2-4.2); Glucose 121 mg/dL (74-106); High Density Lipoprotein 47 mg/dL; Potassium 4.7 mmol/L (3.5-5.1); Protein, Total 6.8 g/dL (6.4-8.2); Sodium Level 140 mmol/L (136-145); Triglycerides 216 mg/dL; Very Low Density Lipoprotein 43 mg/dL (5-40)
[2020-07-31 10:05] LABS: Hemoglobin A1c 5.3 % (3.8-5.6)
[2020-07-31 18:02] LABS: Xtra Tube EP Lab EXTRA TUBE
== END ==
PROVIDERS: PCP Internal Medicine; Referring Provider Internal Medicine; Visit Provider Internal Medicine
DX: E11.9 Type 2 diabetes mellitus without complications (principal); E78.49 Other hyperlipidemia
CPT/HCPCS: 36415; 80053; 80061; 82043; 82570; 83036; 85025

== ENCOUNTER 2020-09-21 15:20 | Outpatient (RCR) | payer MEDICARE, OTHER, SELFPAY ==
[2020-09-20 10:23] VITALS: BMI 26.9
[2020-09-21 15:40] LABS: Bacteria 0 SEEN /hpf (None Seen); Red Blood Cells-Urine 0 SEEN /hpf (0-5)
[2020-09-21 16:00] LABS: Color, Urine Yellow (Yellow); Glucose, Dipstick Normal (Normal); Ketone-Dipstick Negative (Negative); Leukocyte Esterase-Dipstick 25 /ul (Negative); Nitrite-Dipstick Negative (Negative); Occult Blood-Urine 10 /ul (Negative); Protein-Dipstick 15 mg/dl (Negative); Urine Bilirubin Dipstick Negative (Negative); Urine Clarity Clear (Clear); Urine Urobilinogen Normal (Normal)
[2020-09-21 16:07] LABS: Mucous, Urine RARE /hpf (<or=2+); Squamous Epithelial Cells - UA 0-5 SEEN /hpf (5-10); White Blood Cells 0-5 SEEN /hpf (0-5)
== END 2020-10-11 23:59 ==
LOC: LABSPEC 15:20
PROVIDERS: PCP Internal Medicine; Visit Provider Physician Assistant
DX: N39.0 Urinary tract infection, site not specified (principal)
CPT/HCPCS: 81001; 87086; 87088

== ENCOUNTER → 2020-12-08 15:13 | Outpatient (CLI) | payer MEDICARE, OTHER, SELFPAY ==
[2020-12-08 15:27] LABS: Absolute Lymphocyte Count 1.54 X10^3/uL (0.83-4.51); Absolute Neutrophil Count 7.7 X10^3/uL (2.0-7.7); Basophil# 0.01 X10^3/uL; Basophil% 0.1 % (0-1); Eosinophil# 0.08 X10^3/uL; Eosinophils% 0.8 % (0-5); Hematocrit 42.8 % (37-47); Hemoglobin 13.7 g/dL (12.0-15.0); Lymphocyte # 1.54 X10^3/ul (0.83-4.51); Lymphocyte % 15.1 % (19-41); Mean Corpuscular Hgb 29.2 pg (27.0-32.0); Mean Corpuscular Volume 91.3 fL (81-99); Mean Platelet Vol. 11.5 fl (6.2-12.0); Monocyte# 0.84 X10^3/uL; Monocyte% 8.2 % (0-10); NRBC Flagged by Analyzer 0 % (0-5); Neutrophil # 7.67 X10^3/uL (2.7-7.7); Neutrophil % 75.2 % (47-70); Platelet Count 159 K/mm3 (150-450); RBC Distribution Width CV 13.8 % (11.6-14.6); RBC Distribution Width SD 46.5 fl (35.1-43.9); Red Blood Count 4.69 M/mm3 (4.2-5.4); White Blood Count 10.2 K/mm3 (4.4-11.0)
[2020-12-08 15:44] LABS: ALB/GLOB Ratio 1.6 RATIO (0.9-2.4); AST(SGOT) 14 U/L (15-37); Alanine Aminotransfer ALT/SGPT 17 U/L (13-56); Albumin, Serum 3.8 g/dL (3.2-5.0); Alkaline Phosphatase 49 U/L (45-117); Anion Gap 6 (5-15); BUN 27 mg/dL (7-18); BUN/Creat Ratio 23.9 RATIO (10-20); Calcium,Total 8.9 mg/dL (8.5-10.1); Chloride 107 mmol/L (98-107); Creatinine, Serum 1.13 mg/dL (0.55-1.02); EST Glomerular Filtration Rate 49 mL/min (>60); Est Glom Filt Rate - Afr Amer 59 mL/min (>60); Globulin 2.4 g/dL (2.2-4.2); Glucose 99 mg/dL (74-106); Lipase 82 U/L (73-393); Potassium 4.3 mmol/L (3.5-5.1); Protein, Total 6.2 g/dL (6.4-8.2); Sodium Level 139 mmol/L (136-145)
== END ==
PROVIDERS: Nurse Practitioner Family; PCP Internal Medicine; Visit Provider Internal Medicine
DX: R11.10 Vomiting, unspecified (principal); R19.7 Diarrhea, unspecified; D80.1 Nonfamilial hypogammaglobulinemia; C91.10 Chronic lymphocytic leukemia of B-cell type not having achieved remission
CPT/HCPCS: 80053; 82784; 83690; 85025

== ENCOUNTER → 2020-12-19 11:06 | Outpatient (CLI) | payer MEDICARE, OTHER, SELFPAY ==
--- NOTE | 2020-12-19 11:09 | RAD_ITS ---
STUDY: X-RAY - LEFT SHOULDER REASON FOR EXAM: Female, 85 years old. Pain. TECHNIQUE: 4 view(s) of the shoulder. COMPARISON: None. FINDINGS: Normal glenohumeral articulation. There is degenerative arthrosis of the acromioclavicular joint without inferior osseous spur formation. Normal acromion. There is no acute fracture, dislocation or destructive osseous pathology. There is demineralization of the humerus and visualized osseous structures. The soft tissue structures are unremarkable. There is a pacer generator overlying the left lower lung. There is evidence of median sternotomy. Normal visualized pulmonary apex. RAD/Shoulder min 2 Views IMPRESSION: Osteopenia of the shoulder without fracture or dislocation. There is minimal degenerative changes of the acromioclavicular joint. Electronically Signed: Hang Leonard DO at 23:56 EDT Tel [phone], Service support ,
== END ==
PROVIDERS: PCP Internal Medicine; Referring Provider Nurse Practitioner Family; Visit Provider Nurse Practitioner Family
DX: M25.512 Pain in left shoulder (principal)
CPT/HCPCS: 73030

== ENCOUNTER → 2021-01-10 09:38 | Outpatient (CLI) | payer MEDICARE, OTHER, SELFPAY ==
--- NOTE | 2021-01-10 09:47 | CDU_ITS ---
Reason For Study: ATHEROSLEROSIS Rt. Velocities/BP Lt. Velocities/BP Prox CCA 123/6 cm/sec. Prox CCA 114/14 cm/sec. Mid CCA 72/12 cm/sec. Mid CCA 92/18 cm/sec. Dist CCA 62/13 cm/sec. Dist CCA 87/14 cm/sec. Prox ICA 60/13 cm/sec. Prox ICA 107/16 cm/sec. Mid ICA 82/13 cm/sec. Mid ICA 111/16 cm/sec. Dist ICA 114/19 cm/sec. Dist ICA 112/21 cm/sec. Rt. ICA/CCA = 1.6. Lt. ICA/CCA = 1.2. Prox ECA 86/0 cm/sec. Prox ECA 96/10 cm/sec. Rt. Vert. 65/10 cm/sec. Lt. Vert. 60/14 cm/sec. Right Extracranial There is homogeneous, smooth atherosclerotic plaque noted in the right common carotid artery. There is heterogeneous, irregular atherosclerotic plaque noted in the right internal carotid artery. There is heterogeneous, irregular atherosclerotic plaque noted in the right external carotid artery. Antegrade flow is noted in the right vertebral artery. There is heterogeneous, irregular atherosclerotic plaque noted in the right bulb. Left Extracranial There is homogeneous, smooth atherosclerotic plaque noted in the left common carotid artery. There is heterogeneous, irregular atherosclerotic plaque noted in the left internal carotid artery. There is heterogeneous, irregular atherosclerotic plaque noted in the left external carotid artery. Antegrade flow is noted in the left vertebral artery. There is heterogeneous, irregular atherosclerotic plaque noted in the left bulb. Procedure Carotid Duplex [id number]. Exam performed in department. VL/Carotid Duplex Ultrasound Interpretation Summary Mild (<50%) stenosis right extracranial internal carotid. Mild (<50%) stenosis left extracranial internal carotid. Flow within the vertebral arteries is antegrade bilaterally. Heterogeneous, irregular atherosclerotic plaque is noted in the carotid bulbs bilaterally, whi ch does not appear to be hemodynamically significant. Ordering Physician: Susie Dang Referring Physician: Susie Dang Performed By: Linda Segundo, JERED, RVT
== END ==
PROVIDERS: PCP Internal Medicine; Referring Provider Internal Medicine; Visit Provider Internal Medicine
DX: I65.23 Occlusion and stenosis of bilateral carotid arteries (principal); R25.1 Tremor, unspecified
CPT/HCPCS: 93880

== ENCOUNTER 2021-01-15 17:25 | Emergency (ER) | payer MEDICARE, OTHER, SELFPAY ==
[2021-01-15] VITALS (7 sets, daily range): BP systolic 168–205; BP diastolic 65–90; PULSE 69–92; RESP 13–19; TEMP 36.6; O2SAT 98–100; BMI 27.3
--- NOTE | 2021-01-15 19:35 | RAD_ITS ---
INDICATION: Stroke EXAMINATION/TECHNIQUE: X-RAY - XR Chest 1 View COMPARISON: 03/18/2019 chest x-ray and CT chest 08/15/2016. FINDINGS: LINES/DEVICES: Left chest dual-lead pacing device. Intact sternotomy wires. There are overlying heart monitoring wires. LUNGS: Symmetric normal lung volumes. No airspace opacity or abnormal interstitial pattern. No suspicious nodule or mass. Unchanged calcified granuloma right lung. No pleural effusion or pneumothorax. MEDIASTINUM AND CARDIOVASCULAR STRUCTURES: Normal size and contour of the cardiomediastinal silhouette. No evidence of pulmonary vascular congestion. BONES AND SOFT TISSUES: No abnormality within limits of the exam. RAD/Chest 1 View (Portable) IMPRESSION: 1. No radiographic evidence of acute cardiopulmonary disease. Electronically Signed: Daryl Francisco DO at 20:53 EDT Tel , Service support ,
--- NOTE | 2021-01-15 19:35 | EKG12_ITS ---
Test Reason : NEURO Blood Pressure : / mmHG Vent. Rate : 082 BPM Atrial Rate : 082 BPM P-R Int : 232 ms QRS Dur : 178 ms QT Int : 462 ms P-R-T Axes : 097 -60 105 degrees QTc Int : 539 ms Atrial-sensed ventricular-paced rhythm with prolonged AV conduction with occasional Premature ventric ular complexes Abnormal ECG Confirmed by SABAS DUMONT, JAIRO ([id number]), writer editor SUSANA HENLEY ([id number]) on 01/18/2021 10:12:55 AM Referred By: FLORA Confirmed By:JAIRO OBREGON MD
[2021-01-15 20:20] LABS: Absolute Lymphocyte Count 1.38 X10^3/uL (0.83-4.51); Absolute Neutrophil Count 3.3 X10^3/uL (2.0-7.7); Basophil# 0.01 X10^3/uL; Basophil% 0.2 % (0-1); Eosinophil# 0.06 X10^3/uL; Eosinophils% 1.1 % (0-5); Hematocrit 43.6 % (37-47); Hemoglobin 13.8 g/dL (12.0-15.0); Lymphocyte # 1.38 X10^3/ul (0.83-4.51); Mean Corp Hgb Conc 31.7 g/dL (32-36); Mean Corpuscular Hgb 29.4 pg (27.0-32.0); Mean Corpuscular Volume 92.8 fL (81-99); Mean Platelet Vol. 11.1 fl (6.2-12.0); Monocyte# 0.58 X10^3/uL; Monocyte% 10.9 % (0-10); NRBC Flagged by Analyzer 0 % (0-5); Neutrophil # 3.25 X10^3/uL (2.7-7.7); Neutrophil % 61.2 % (47-70); Platelet Count 177 K/mm3 (150-450); RBC Distribution Width CV 13.2 % (11.6-14.6); RBC Distribution Width SD 45.2 fl (35.1-43.9); White Blood Count 5.3 K/mm3 (4.4-11.0)
--- NOTE | 2021-01-15 20:26 | EX.ED.DYSGE1 ---
HPI History of Present Illness Chief Complaint: Neuro S/Sx Detail of Chief Complaint: Generalized weakness Informant: patient Onset/Context/Timing Onset: Days Context: Gradual Onset Timing: Continuous Current Severity: Mild Maximum Severity: Mild Narrative Narrative: 85-year-old female states since Friday evening she just felt weak all over both upper and lower extremities. Gradual onset. Nausea vomiting x1. She was so weak she kind of slipped out of bed on Friday. Denies any injuries and did not hit her head. She extensive past medical history of cardiac disease with cardiac stents and prior CABG. She also has a history of CLL and gets immunotherapy for that. She denies any fever. She denies any chills. She denies any dysuria. Followed up with her primary care physician over the phone they started her on Cipro in case this is a UTI because she has had prior events like this when she had underlying infection. She states she just feels too weak to even walk. Prior similar symptoms: Yes Recent Illness/Hospitalization: No PFSH PFS Medical History Abnormal urine finding Atherosclerosis of coronary artery bypass graft without angina pectoris Atherosclerotic heart disease of [place] coronary artery without angina pectoris Bronchitis Chronic diastolic (congestive) heart failure Chronic lymphoid leukemia Complete heart block DM (diabetes mellitus), type 2 with peripheral vascular complications Essential (primary) hypertension Gout HLD (hyperlipidemia) Hypogammaglobulinemia, acquired Left bundle branch block (LBBB) Macular degeneration Mitral valve annular calcification Nonrheumatic mitral (valve) insufficiency Nonsustained ventricular tachycardia Obstructive hypertrophic cardiomyopathy Other specified transient cerebral ischemias Peripheral edema Proteinuria Skin tear of left upper extremity Uncontrolled hypertension URI (upper respiratory infection) Urinary frequency Home Medications aspirin 81 mg PO DAILY@0800 02/04/13 [History Last Taken Unknown] metoprolol tartrate 50 mg PO BID 02/04/13 [History Last Taken Unknown] vitamins A,C,L-zqcs-yuyarj 1 ea PO BID 03/29/15 [History Last Taken Unknown] cholecalciferol (vitamin D3) 1 tab PO DAILY 05/18/15 [History Last Taken Unknown] hydrocodone-acetaminophen 1 tab PO Q8H PRN PRN 06/22/15 [History Last Taken Unknown] duloxetine 60 mg PO DAILY 04/11/16 [History Last Taken Unknown] gabapentin 300 mg PO TID 10/28/16 [History Last Taken Unknown] simvastatin 40 mg PO QHS 10/28/16 [History Last Taken Unknown] furosemide 20 mg tablet 60 mg PO QODAY tab 05/13/17 [History Last Taken Unknown] mirabegron 50 mg tablet,extended release 24 hr 50 mg PO QDAY 05/13/17 [History Last Taken Unknown] arginine (L-arginine) 3,000 mg PO BID 10/29/17 [History Last Taken Unknown] fesoterodine 4 mg tablet,extended release 24 hr 4 mg PO QDAY 11/11/17 [History Last Taken Unknown] cyanocobalamin (vitamin B-12) 1,000 mcg PO QWEEK 11/26/17 [History Last Taken Unknown] levothyroxine 50 mcg PO DAILY 12/24/17 [History Last Taken Unknown] furosemide 20 mg PO QODAY 07/14/19 [History Last Taken Unknown] ciprofloxacin HCl 500 mg PO BID 01/15/21 [History Last Taken Unknown] Allergy/AdvReac Type Severity Reaction Status Date / Time amoxicillin trihydrate AdvReac Severe Vomiting Verified 12/25/20 10:48 [From Augmentin] lidocaine AdvReac Severe Other Verified 01/15/21 17:29 Penicillins AdvReac Severe Vomiting Verified 12/25/20 10:48 potassium clavulanate AdvReac Severe Vomiting Verified 12/25/20 10:48 [From Augmentin] Family History Father , age 86 CAD (coronary artery disease) Sister Asthma Surgical History H/O coronary artery bypass surgery (01/15/11) History of appendectomy History of cholecystectomy History of coronary artery stent placement (06/17/11) History of electrophysiologic study (01/21/11) History of hysterectomy History of mitral valve repair (01/15/11) History of tonsillectomy nerve ablation for pain management Presence of permanent cardiac pacemaker (01/21/11) Social History Smoking Status: Never smoker alcohol intake: never substance use type: does not use what type of physical activity do you participate in: walking and weight training frequency: 5-6 times per week ROS ROS ED ROS Narrative Generalized weakness. Nausea vomiting x1. Review of Systems ROS Unobtainable: Denies due to encephalopathy Constitutional Constitutional ED: Denies chills or fever(s) Eyes Eyes: Denies change in vision ENT ENT ED: Denies ear pain or sore throat Cardiovascular Cardiovascular: Denies chest pain Respiratory/Chest Respiratory/Chest: Denies cough or dyspnea Gastrointestinal Gastrointestinal: Reports nausea and vomiting; Denies abdominal pain Genitourinary Genitourinary ED: Denies dysuria Musculoskeletal Musculoskeletal: Denies myalgias Integumentary Denies rash Neurologic Neurologic: Denies headache(s) Psychiatric Psychiatric: Denies depression Endocrine Endocrinology: Denies polyuria Allergic/Immunologic Allergic/Immunologic ED: Denies urticaria EXAM Physical Exam Narrative Exam Narrative: Alert female no acute distress. Vital signs stable afebrile. Pulse ox 90% on room air no signs hypoxia. H EENT T exam unremarkable. Neck nontender no lymphadenopathy. Lungs clear to auscultation bilaterally. Heart paced rhythm. Abdomen soft nontender normal bowel sounds no peritoneal signs. Moving all 4 extremities. Nontender no deformity. No edema. Neurologically she is awake alert answering questions and following commands. Const Vital Signs: 01/15/21 17:29 01/15/21 19:11 01/15/21 19:54 Temperature 97.8 F Temperature Source Temporal Pulse Rate 92 71 Respiratory Rate 16 16 Blood Pressure 176/90 H 168/65 H Blood Pressure Mean 118 99 Pulse Ox 98 99 99 Oxygen Delivery Method Room Air Room Air Room Air 01/15/21 20:05 01/15/21 21:02 01/15/21 22:06 Temperature Temperature Source Pulse Rate 78 77 69 Respiratory Rate 14 19 H 13 Blood Pressure 174/73 H 178/84 H 205/81 H Blood Pressure Mean 106 115 122 Pulse Ox 100 99 100 Oxygen Delivery Method Room Air Positive well nourished and well developed; Negative for cachectic, contractures or unkempt General Appearance ED: well developed and NAD; Negative for unkempt, cachectic, contractures, cyanotic, diaphoretic or pallor Nutritional Appearance: Negative for cachectic HEENT Reports moist mucous membranes Negative for trauma or tenderness Eyes PERRL and EOMs intact bilaterally Neck no lymphadenopathy, supple and no JVD General: Negative for tenderness Chest Wall inspection of chest normal and palpation of chest normal Resp normal respiratory effort and clear to auscultation bilaterally Effort and Inspection: Negative for pain with movement Auscultation: Negative for rales, rhonchi or wheezes Cardio regular rate, regular rhythm, S1 normal heart sound, S2 normal heart sound and no murmurs GI normal to inspection, nondistended, normoactive bowel sounds, non-tender, non-distended and no masses Auscultation: normoactive bowel sounds Palpation: soft; Negative for tender, guarding or rebound tenderness present Back/Spine no CVA tenderness Extremity normal to inspection General Extremety ED: Negative for edema or tenderness General Extremity: Negative for edema Neuro oriented x3 and no sensory deficits noted Sensorium / Orientation: alert; Negative for orientation impaired, lethargic or stuporous Motor Exam: general weakness Psych mental status grossly normal Appearance: Negative for unkempt Skin no rashes or lesions noted, no wounds and skin turgor normal General Skin Exam: Negative for jaundice or pallor MDM MDM MDM Narrative Medical decision making narrative: Older female general weakness suspect underlying infectious etiology. Exam benign. Patient doing well on repeat exam at 1025. I discussed at length with both her daughter. Her exam is benign. She ambulated to the restroom with limited assistance with her daughter. She will be discharged home. Continue on her current antibiotic and follow-up with her primary care physician. I did speak to Dr. Susie Dagn and she will follow up the patient later this week. Lab Data Attestation: I reviewed the patient's lab results. Lab results narrative: CBC shows a white count of 5. Hemoglobin 13. Platelets 177. PT/INR PTT normal. Electrolytes unremarkable gap of 6. BUN is 16 creatinine 1.1. Glucose 105. Lactic acid 1.4. UA 25-50 white cells rare bacteria. No nitrates. Consistent with UTI. Culture being sent. She is already on Cipro from her primary care physician. Labs: Laboratory Results - last 24 hr 01/15/21 01/15/21 01/15/21 19:52 19:52 19:52 WBC 5.3 RBC 4.70 Hgb 13.8 Hct 43.6 MCV 92.8 MCH 29.4 MCHC 31.7 L RDW Std Deviation 45.2 H RDW Coeff of Patrice 13.2 Plt Count 177 MPV 11.1 Immature Gran % (Auto) 0.600 Neut % (Auto) 61.2 Lymph % (Auto) 26.0 [place] % (Auto) 10.9 H Eos % (Auto) 1.1 Baso % (Auto) 0.2 Absolute Neuts (auto) 3.3 Absolute Lymphs (auto) 1.38 Nucleated RBC % 0 PT 13.4 INR 1.1 APTT 25.6 Sodium 142 Potassium 3.9 Chloride 107 Carbon Dioxide 29.0 Anion Gap 6 BUN 16 Creatinine 1.19 H Estim Creat Clear Calc 33.61 Est GFR (MDRD) Af Amer 55 L Est GFR (MDRD) Non-Af 46 L BUN/Creatinine Ratio 13.4 Glucose 105 Lactic Acid Calcium 9.2 Urine Color Urine Clarity Urine pH Ur Specific [place] Urine Protein Urine Glucose (UA) Urine Ketones Urine Occult Blood Urine Nitrite Urine Bilirubin Urine Urobilinogen Ur Leukocyte Esterase Urine RBC Urine WBC Ur Squamous Epith Cells Urine Bacteria Urine Mucus 01/15/21 01/15/21 20:45 21:20 WBC RBC Hgb Hct MCV MCH MCHC RDW Std Deviation RDW Coeff of Patrice Plt Count MPV Immature Gran % (Auto) Neut % (Auto) Lymph % (Auto) [place] % (Auto) Eos % (Auto) Baso % (Auto) Absolute Neuts (auto) Absolute Lymphs (auto) Nucleated RBC % PT INR APTT Sodium Potassium Chloride Carbon Dioxide Anion Gap BUN Creatinine Estim Creat Clear Calc Est GFR (MDRD) Af Amer Est GFR (MDRD) Non-Af BUN/Creatinine Ratio Glucose Lactic Acid 1.4 Calcium Urine Color Yellow Urine Clarity Sl. Cloudy Urine pH 6.0 Ur Specific [place] 1.010 Urine Protein Negative Urine Glucose (UA) Normal Urine Ketones Negative Urine Occult Blood Negative Urine Nitrite Negative Urine Bilirubin Negative Urine Urobilinogen Normal Ur Leukocyte Esterase 500 H Urine RBC 0 SEEN Urine WBC 25-50 SEEN Ur Squamous Epith Cells 0-5 SEEN Urine Bacteria RARE Urine Mucus 0 SEEN Radiography Chest X-Ray - ED: 1 View, Read by ED Physician, Normal, Heart, Lungs, Mediastinum, Bony Structures, No Acute Disease and Chronic Changes Diagnostic Testing: Radiology Impression Chest X-Ray 01/15/21 19:35 IMPRESSION: 1. No radiographic evidence of acute cardiopulmonary disease. Electronically Signed: Daryl Francisco DO at 20:53 EDT Tel , Service support , Portable chest x-ray unremarkable. Chronic changes. Left-sided pacemaker. Interpreted by myself and radiologist. Rhythm Strip Rhythm Strip: Paced Rate: 82 Ectopy: None EKG Initial EKG: Attestation: I personally reviewed and interpreted this EKG as follows: Comments: Paced rhythm rate of 82 interventricular conduction delay. Discharge Plan Triage Chief Complaint: Neuro S/Sx ED Provider: Ian Shaw Dx/Rx/DC Orders Clinical Impression: Urinary tract infection, Generalized weakness Instructions: ED CYSTITIS Female Adult Prescriptions: No Action mirabegron [Myrbetriq] 50 mg tablet extended release 24 hr 50 mg PO QDAY RF: 0 furosemide [Lasix] 20 mg tablet 60 mg PO QODAY RF: 0 fesoterodine [Toviaz] 4 mg tablet extended release 24 hr 4 mg PO QDAY RF: 0 metoprolol tartrate 50 MG tablet 50 mg PO BID RF: 0 aspirin 81 MG tablet,chewable 81 mg PO DAILY@0800 RF: 0 vitamins A,C,Q-bczz-lkjlnj 1 EACH capsule 1 ea PO BID RF: 0 cholecalciferol (vitamin D3) 5,000 UNIT capsule 1 tab PO DAILY RF: 0 hydrocodone-acetaminophen 1 EACH tablet 1 tab PO Q8H PRN PRN (Reason: Pain) RF: 0 duloxetine 60 MG capsule,delayed release(DR/EC) 60 mg PO DAILY RF: 0 gabapentin 300 MG capsule 300 mg PO TID RF: 0 simvastatin 40 MG tablet 40 mg PO QHS RF: 0 arginine (L-arginine) 500 MG tablet 3,000 mg PO BID RF: 0 cyanocobalamin (vitamin B-12) 500 MCG tablet 1,000 mcg PO QWEEK RF: 0 levothyroxine 50 MCG tablet 50 mcg PO DAILY RF: 0 furosemide 20 MG tablet 20 mg PO QODAY RF: 0 ciprofloxacin HCl 500 mg tablet 500 mg PO BID RF: 0 Primary Care Provider: Susie Dang Referrals: Susie Dang DO [Primary Care Provider] - 3-5 Days Activity Restrictions/Additional Instructions: Follow-up with Dr. Susie Dang later this week. Plenty of fluids and rest. Continue your antibiotics Cipro 1 pill twice a day. You have urinary tract infection. I will send a urine culture to make sure that the Cipro will treat that. Dr. Dang can check those results. I spoke with her this evening on the phone for outpatient follow-up. Call their office for an appointment. Return to emergency department if you are feeling worse but there is no need to admit to the hospital at this time. Disposition Disposition: Home, Self Care
[2021-01-15 20:32] LABS: Anion Gap 6 (5-15); BUN 16 mg/dL (7-18); BUN/Creat Ratio 13.4 RATIO (10-20); Calcium,Total 9.2 mg/dL (8.5-10.1); Chloride 107 mmol/L (98-107); Creatinine, Serum 1.19 mg/dL (0.55-1.02); EST Glomerular Filtration Rate 46 mL/min (>60); Est Glom Filt Rate - Afr Amer 55 mL/min (>60); Estimated Creatinine Clearance 33.61 ml/min; Glucose 105 mg/dL (74-106); Potassium 3.9 mmol/L (3.5-5.1); Sodium Level 142 mmol/L (136-145)
[2021-01-15] MEDS: 0.9% Normal Saline 1,000 ML 999 ML IV (20:58)
[2021-01-15 21:03] LABS: International Normalized Ratio 1.1; Partial Thromboplast Time 25.6 Seconds (24.1-36.2); Prothrombin Time (Protime)PT. 13.4 SECONDS (11.7-14.9)
[2021-01-15 21:04] LABS: Mucous, Urine 0 SEEN /hpf (<or=2+); Red Blood Cells-Urine 0 SEEN /hpf (0-5)
[2021-01-15 21:12] LABS: Color, Urine Yellow (Yellow); Glucose, Dipstick Normal (Normal); Ketone-Dipstick Negative (Negative); Leukocyte Esterase-Dipstick 500 /ul (Negative); Nitrite-Dipstick Negative (Negative); Occult Blood-Urine Negative /ul (Negative); Protein-Dipstick Negative (Negative); Urine Bilirubin Dipstick Negative (Negative); Urine Clarity Sl. Cloudy (Clear); Urine Urobilinogen Normal (Normal)
[2021-01-15 21:44] LABS: Bacteria RARE /hpf (None Seen); Squamous Epithelial Cells - UA 0-5 SEEN /hpf (5-10); White Blood Cells 25-50 SEEN /hpf (0-5)
[2021-01-15 22:03] LABS: Lactic Acid 1.4 mmol/L (0.4-1.9)
[2021-01-15] MEDS: Ciprofloxacin 500 MG Tablet PO (22:56)
== END 2021-01-15 22:56 | disposition home or self-care (01) ==
PROVIDERS: Emergency Provider Emergency Medicine; PCP Internal Medicine
DX: N39.0 Urinary tract infection, site not specified (principal); R53.1 Weakness; I11.0 Hypertensive heart disease with heart failure; I50.32 Chronic diastolic (congestive) heart failure; I25.810 Atherosclerosis of coronary artery bypass graft(s) without angina pectoris; E78.5 Hyperlipidemia, unspecified; Z95.5 Presence of coronary angioplasty implant and graft; Z79.82 Long term (current) use of aspirin; Z79.899 Other long term (current) drug therapy
CPT/HCPCS: 36415; 71045; 80048; 81001; 83605; 85025; 85610; 85730; 87086; 87426; 93005; 99284; J7030; A4216

== ENCOUNTER → 2021-02-02 14:57 | Outpatient (CLI) | payer MEDICARE, OTHER, SELFPAY ==
[2021-02-02 15:16] LABS: Absolute Neutrophil Count 4.1 X10^3/uL (2.0-7.7); Basophil# 0.01 X10^3/uL; Basophil% 0.2 % (0-1); Eosinophil# 0.05 X10^3/uL; Eosinophils% 0.8 % (0-5); Hemoglobin 14.6 g/dL (12.0-15.0); Lymphocyte % 21.1 % (19-41); Mean Corp Hgb Conc 31.7 g/dL (32-36); Mean Corpuscular Hgb 29.1 pg (27.0-32.0); Mean Corpuscular Volume 91.8 fL (81-99); Mean Platelet Vol. 10.7 fl (6.2-12.0); Monocyte# 0.64 X10^3/uL; Monocyte% 10.4 % (0-10); NRBC Flagged by Analyzer 0 % (0-5); Neutrophil # 4.14 X10^3/uL (2.7-7.7); Neutrophil % 67.3 % (47-70); Platelet Count 203 K/mm3 (150-450); RBC Distribution Width CV 13.6 % (11.6-14.6); RBC Distribution Width SD 46.4 fl (35.1-43.9); Red Blood Count 5.01 M/mm3 (4.2-5.4); White Blood Count 6.2 K/mm3 (4.4-11.0)
[2021-02-02 15:31] LABS: ALB/GLOB Ratio 1.3 RATIO (0.9-2.4); AST(SGOT) 22 U/L (15-37); Alanine Aminotransfer ALT/SGPT 19 U/L (13-56); Albumin, Serum 4.2 g/dL (3.2-5.0); Alkaline Phosphatase 51 U/L (45-117); Anion Gap 7 (5-15); BUN 22 mg/dL (7-18); BUN/Creat Ratio 20.4 RATIO (10-20); Calcium,Total 9.2 mg/dL (8.5-10.1); Chloride 107 mmol/L (98-107); Creatinine, Serum 1.08 mg/dL (0.55-1.02); EST Glomerular Filtration Rate 51 mL/min (>60); Est Glom Filt Rate - Afr Amer 62 mL/min (>60); Globulin 3.2 g/dL (2.2-4.2); Glucose 85 mg/dL (74-106); Potassium 4.3 mmol/L (3.5-5.1); Protein, Total 7.4 g/dL (6.4-8.2); Sodium Level 141 mmol/L (136-145); Troponin-I HS 57 pg/mL (3.0-54.0)
[2021-02-02 15:35] LABS: BNP,B-Type NATRIURETIC PEPTIDE 347.9 pg/mL (0-100)
== END ==
PROVIDERS: PCP Internal Medicine; Referring Provider Internal Medicine; Visit Provider Internal Medicine
DX: R06.2 Wheezing (principal); R06.02 Shortness of breath; R53.1 Weakness
CPT/HCPCS: 80053; 83880; 84443; 84484; 85025

== ENCOUNTER → 2021-02-06 12:12 | Outpatient (CLI) | payer MEDICARE, OTHER, SELFPAY ==
[2021-02-06 12:49] LABS: ALB/GLOB Ratio 1.1 RATIO (0.9-2.4); AST(SGOT) 21 U/L (15-37); Alanine Aminotransfer ALT/SGPT 16 U/L (13-56); Albumin, Serum 3.9 g/dL (3.2-5.0); Alkaline Phosphatase 52 U/L (45-117); Anion Gap 9 (5-15); BUN 15 mg/dL (7-18); BUN/Creat Ratio 12.6 RATIO (10-20); Calcium,Total 9.5 mg/dL (8.5-10.1); Chloride 105 mmol/L (98-107); Creatinine, Serum 1.19 mg/dL (0.55-1.02); EST Glomerular Filtration Rate 46 mL/min (>60); Est Glom Filt Rate - Afr Amer 55 mL/min (>60); Globulin 3.5 g/dL (2.2-4.2); Glucose 126 mg/dL (74-106); Potassium 4.1 mmol/L (3.5-5.1); Protein, Total 7.4 g/dL (6.4-8.2); Sodium Level 141 mmol/L (136-145); Troponin-I HS 45 pg/mL (3.0-54.0)
== END ==
PROVIDERS: PCP Internal Medicine; Referring Provider Internal Medicine; Visit Provider Internal Medicine
DX: R77.8 Other specified abnormalities of plasma proteins (principal)
CPT/HCPCS: 80053; 84484

== ENCOUNTER → 2021-02-15 13:53 | Outpatient (CLI) | payer MEDICARE, OTHER, SELFPAY ==
--- NOTE | 2021-02-15 13:58 | ECHOD_ITS ---
Reason For Study: ELEVATED TROPONIN, ASHD, S/P CABG Procedure This was a 2D Doppler, Color Flow transthoracic echocardiogram. The study was technically difficult. Exam performed in department. Left Ventricle Normal LV size. The estimated ejection fraction is 55 %. Unable to assess diastolic dysfunction. Septal hypokinesis likely related to prior myomectomy. Right Ventricle Normal RV size. Normal systolic function. Atria The left atrium is severely enlarged. Normal right atrium. No doppler evidence for ASD. Mitral Valve There is no mitral valve stenosis. Mild-Moderate (1-2+) mitral valve insufficiency. Status post mitral valve repair with annuloplasty ring. Tricuspid Valve There is no tricuspid stenosis. Unable to estimate RV systolic pressure due to insufficient tricuspid regurgitant envelope. Aortic Valve Trisinus/trileaflet aortic valve. There is no aortic stenosis. No aortic valve insufficiency. Pulmonic Valve There is no pulmonic valvular stenosis. No pulmonic valve insufficiency. Great Vessels Normal aortic root. Pericardium/Pleural No pericardial effusion. MMode/2D Measurements & Calculations LVIDd: 3.6 cm IVSd: 1.6 cm Ao root diam: 3.4 cm LVIDs: 2.3 cm LVPWd: 1.1 cm RVDd: 2.7 cm FS: 37.2 % LAV(MOD-bp): 159.5 ml LA A4 area: 35.3 cm2 LA dimension(2D): 5.5 cm LAV(MOD-bp) Indexed: 83.1 ml/m2 LAV(MOD-sp2): 153.0 ml LAV(MOD-sp4): 153.7 ml RA A4 area: 15.6 cm2 Time Measurements MV dec time: 0.31 sec Doppler Measurements & Calculations MV E max lavon: 133.8 cm/sec Lat Peak E' Lavon: 9.2 cm/sec Med Peak E' Lavon: 3.1 cm/sec MV A max lavon: 169.8 cm/sec E/E' lat: 14.5 E/E' med: 43.2 MV E/A: 0.79 MV V2 max: 184.4 cm/sec Ao V2 max: 168.2 cm/sec LV V1 max: 132.7 cm/sec MV max P.6 mmHg Ao max P.3 mmHg LV V1 max P.0 mmHg MV V2 mean: 113.1 cm/sec Ao V2 mean: 131.0 cm/sec LV V1 mean P.4 mmHg MV mean P.9 mmHg Ao mean P.3 mmHg LV V1 mean: 99.8 cm/sec MV V2 VTI: 49.5 cm Ao V2 VTI: 36.6 cm LV V1 VTI: 28.1 cm PA V2 max: 98.7 cm/sec TR max lavon: 273.7 cm/sec MV P1/2t-pr_phl: 81.2 msec TR max P.0 mmHg ECHO/Echo Complete Interpretation Summary The estimated ejection fraction is 55 %. Unable to assess diastolic dysfunction. The left atrium is severely enlarged. Status post mitral valve repair with annuloplasty ring. Mild-Moderate (1-2+) mitral valve insufficiency. Ordering Physician: Susie Dang Referring Physician: Susie Dang Performed By: Brandi Pennington RDCS, RVT
--- NOTE | 2021-02-15 14:05 | CT_ITS ---
STUDY: CT BRAIN WITH AND WITHOUT CONTRAST REASON FOR EXAM: Female, 85 years old. History of recent fall. RADIATION DOSAGE (If Supplied By Facility): CTDIvol = ( 44.99 ) mGy, DLP = ( 1715.95 ) mGycm TECHNIQUE: Transaxial CT imaging of the brain was performed pre and post contrast administration. The examination was performed with intravenous administration of IV 50mL Isovue-370. Individualized dose optimization techniques were used for this CT. COMPARISON: Comparison is made with prior examination dated 11/24/2016. FINDINGS: Normal soft tissue structures. Normal calvarium. There is mild cerebral atrophy with widening of the extra-axial spaces and ventricular dilatation. There are areas of decreased attenuation within the white matter tracts of the supratentorial brain, consistent with microvascular disease changes. Normal basal ganglia and thalami. Normal brainstem. Normal cerebellum. There is no intracranial hemorrhage. There are no findings of an acute ischemic infarction. Atherosclerotic calcification of the cavernous portions of the internal carotid arteries bilaterally. Normal visualized paranasal sinuses. CT/Brain/Head W/WO Contrast IMPRESSION: Chronic involutional changes of the brain. Electronically Signed: Denis Casillas MD at 9:10 EDT , Service support ,
== END ==
PROVIDERS: PCP Internal Medicine; Referring Provider Internal Medicine; Visit Provider Internal Medicine
DX: I25.810 Atherosclerosis of coronary artery bypass graft(s) without angina pectoris (principal); R47.89 Other speech disturbances; R77.8 Other specified abnormalities of plasma proteins; C91.10 Chronic lymphocytic leukemia of B-cell type not having achieved remission; D80.1 Nonfamilial hypogammaglobulinemia
CPT/HCPCS: 36415; 70470; 80053; 82784; 83615; 85025; 93306; Q9967; A4216

== ENCOUNTER → 2021-03-14 13:32 | Outpatient (CLI) | payer MEDICARE, OTHER, SELFPAY ==
--- NOTE | 2021-03-14 14:54 | NEURO ---
NCS and/or EMG Patient Report Ordering Doctor: Susie Dang DATE OF SERVICE: 03/14/21 Shagufta presents for electrodiagnostic testing of the left upper limb. She reports intermittent tremors and pain in the left arm. Electrodiagnostic findings: Left median motor nerve demonstrates normal distal latency, amplitude and conduction velocity. Normal left ulnar motor response. Normal left median ulnar F-wave. Sensory responses are within normal limits. On needle EMG, all muscles tested in the left upper limb showed no evidence of denervation with normal motor unit action potentials. Electrodiagnostic impression: This is a normal electrodiagnostic study of the left upper limb. There is no electrodiagnostic evidence for peripheral neuropathy, including carpal tunnel syndrome. There is no electrodiagnostic evidence for cervical radiculopathy.
== END ==
PROVIDERS: PCP Internal Medicine; Referring Provider Internal Medicine; Visit Provider Internal Medicine
DX: R25.1 Tremor, unspecified (principal)
CPT/HCPCS: 95910

== ENCOUNTER 2021-03-15 13:00 | Outpatient (RCR) | payer MEDICARE, OTHER, SELFPAY ==
[2020-11-06 10:13] VITALS: BMI 26.8
[2020-11-15 10:14] VITALS: BMI 27.6
--- NOTE | 2020-11-16 11:06 | HP.PTEVAL ---
Patient's Visit Information BEVERLY GARCIA is a 85 year old F referred to Physical Therapy by RUFNIA WoodM with a diagnosis of Unsteady gait. Date of Evaluation: 11/16/20 Physical Therapist: Inocencio Butcher, PT, ATC - Visit Plan Frequency: 2x /Week Duration: 6 Weeks Plan: B LE strengthening, balance and proprio, core stab ex's, nustep, and HEP - Subjective Pt reports she has fallen several times over the last year with the last one being one month ago. Pt reports no serious injuries as a result other than a couple stitches. Pt reports she has walked with a cane in the past, but notes she would like to walk with no AD for as long as she can without injury. Pt has fallen 3 times when trying to negotiate a curb and not getting her foot up high enough. Pt also notes she has fallen from getting out of bed to quickly and feeling light headed. Pt notes other times her R ankle just seems to give out. Pt notes no tingling or numbness in LE's, and notes she has good sensation in her feet. No recent changes in medications. Pt reports she really doesnt feel weak at this time. Pt has stairs to her basement, but notes she is not allowed to negotiate them. Pt has lived alone since 2001, up until 2 months ago when a young nephew moved into to help her. Pt reports she had been exercising here at [facility] 3-4 times per week prior to [facility], but has been house locked since. Pt is no in any pain on this date. - Objective Neuro: B LE sensation is WNL to light touch. B patellar reflex= 2/3. MMT: L LE is grossly 4-/5 throughout while R LE is grossly 4/5 throughout. ROM: B LE's are WFL this date. FGA: indicating a fall risk at this time - Balance/Special Test Scores Functional Gait Assessment Score: 13 % Disability: 56.6700 - Goals Goal 1:: Increase LE strength x 1 grade to aid with stair and curb negotiation Goal Time Frame: 6-8 Weeks Goal 2:: Increase FGA score x 5 points to aid with increasing SDB Goal Time Frame: 6-8 Weeks Goal 3:: I with HEP Goal Time Frame: 6-8 Weeks - Rehabilitation Potential Physical Therapy Diagnosis: Pt has LE weakness and an unsteady gait pattern secondary to debility - Anticipated Interventions Patient/Client Instruction: Educate patient on: Condition, Plan of Care For the Purpose of:: To improve self management Therapeutic Exercise to Include: Strength training, Endurance training, Balance training, Dynamic Lumbar Stabilization For the Purpose of:: To improve muscle performance and motor function, To increase tolerance to activity/condition/position, To improve balance Thank you for the opportunity to evaluate your patient. For Medicare and Medicare HMO plans, please review the plan of care and approve it. It will need to be FAXED BACK to us at [phone] for Medicare purposes. For Medicare only, by signing this I certify the plan of care. Please let me know if there are questions or concerns regarding this plan of care. Physician Signature: Date:
--- NOTE | 2021-01-17 11:01 | HP.PTREVAL ---
Dr. Mae Moore, DPM, It has been my pleasure to treat BEVERLY GARCIA over the last 12 visits for Unsteady gait. Please see the progress note below for an update on the physical therapy plan of care! Subjective: Pt reports she was doing very well until she fell this past weekend. My LBP is killing me 11/21 Objective/Function: B LE strength is now 3+/5 and painful with all testing. FGA: 02/10. Pt has regressed some since her fall o=michelle the weekend. Pt would benefit from further skilled PT for balance and strengthening ex's Plan Plan: B LE strengthening, balance and proprio, core stab ex's, nustep, and HEP Balance/Gait/Functional tests - Balance/Special Test Scores Functional Gait Assessment Score: 10 % Disability: 66.6700 Lower Extremity Functional Score: 23 Goals Goal 1:: Increase LE strength x 1 grade to aid with stair and curb negotiation Goal Time Frame: 6-8 Weeks Goal 2:: Increase FGA score x 5 points to aid with increasing SDB Goal Time Frame: 6-8 Weeks Goal 3:: I with HEP Goal Time Frame: 6-8 Weeks Anticipated Interventions Patient/Client Instruction: Educate patient on: Condition, Plan of Care For the Purpose of:: To improve self management Therapeutic Exercise to Include: Strength training, Endurance training, Balance training, Dynamic Lumbar Stabilization For the Purpose of:: To improve muscle performance and motor function, To increase tolerance to activity/condition/position, To improve balance Please do not hesitate to contact me at [phone] by phone or if you have questions or concerns regarding this new plan of care! Sincerely, Inocencio Butcher, PT, ATC
--- NOTE | 2021-04-30 10:47 | HP.PTDCSUM ---
It has been my pleasure to treat BEVERLY GARCIA referred by Dr. Mae Moore, DPM, with the diagnosis of Unsteady gait for a total of 20 visit(s). Discharge Date: Please see the following information for a summary of their discharge status. Subjective: I am ready to be finished with PT L SH Pain Intensity (Out of 10): 7 % Improvement: 50 Objective/Function: B LE strength is 4+/5 to 5/5 throughout. FGA: . I with HEP. Rx goals achieved Goal 1:: Increase LE strength x 1 grade to aid with stair and curb negotiation Goal Progress: Goal Met Goal 2:: Increase FGA score x 5 points to aid with increasing SDB Goal 3:: I with HEP Goal Progress: Goal Met Plan: Discharge to HEP If there are questions or concerns regarding this patient's physical therapy, please feel free to call me at [phone]. Thank you for the referral of this patient. Sincerely, Inocencio Butcher, PT, ATC Balance/Gait/Functional tests - Balance/Special Test Scores Functional Gait Assessment Score: 17 % Disability: 43.3400 Lower Extremity Functional Score: 23
== END 2021-03-15 19:00 | disposition home or self-care (01) ==
LOC: PT 13:00
PROVIDERS: PCP Internal Medicine; Referring Provider Podiatrist Foot & Ankle Surgery; Visit Provider Podiatrist Foot & Ankle Surgery
DX: R26.81 Unsteadiness on feet (principal)
CPT/HCPCS: 97110; 97161; 97164; 97530

== ENCOUNTER 2021-07-03 15:43 | Outpatient (CLI) | payer MEDICARE, OTHER, SELFPAY ==
--- NOTE | 2021-07-03 15:47 | BI_ITS ---
MAMMOGRAPHY - BILATERAL SCREENING REASON FOR EXAM: Female, 85 years old. Routine annual screening examination. PERTINENT HISTORY: Non-contributory. Remote right ultrasound-guided breast biopsy. TECHNIQUE: Digital bilateral breast linda (3D mammographic acquisition) in the CC and MLO projections. 2-D mediolateral oblique (MLO) and craniocaudad (CC) views of both breasts were obtained. CAD: Full Field Digital Mammography with Computer Added Detection was performed. COMPARISON: Comparison is made with prior study dated 06/30/2020 and 06/30/2019. FINDINGS: Breast Composition: The breasts are almost entirely fatty. There are no dominant masses or suspicious calcifications. Once again, a pacemaker battery pack is seen in the right axillary region. No other significant abnormalities are identified. There has been no significant change since the prior study. BI/SCRN MAMM (CAD)W/LINDA BILAT IMPRESSION: Stable bilateral screening mammogram. Yearly follow-up mammogram recommended. (A) ASSESSMENT CATEGORY: BIRADS Category 2: Benign. A letter regarding these results will be sent to the patient by the facility within 30 days. Approximately 10% of breast cancers are not detected by mammography. A normal mammogram should not delay biopsy of a clinically suspicious abnormality. [id number] Electronically Signed: Denis Casillas MD at 8:25 EDT ,
--- NOTE | 2021-07-03 16:03 | BD_ITS ---
STUDY: DUAL ENERGY X-RAY ABSORPTIOMETRY / DXA REASON FOR EXAM: Female, 85 years old. [id number]. Patient is postmenopausal. TECHNIQUE: Bone Mineral Density (BMD) measurements of lumbar spine and bilateral hips were obtained. COMPARISON: Comparison is made with prior study dated 06/30/2019. FINDINGS: Lumbar Spine (L1-L4): g/cm2 (1.074) / T-score (0.2) / Z-score (3.1) Findings are suggestive of normal bone density with a low fracture risk. Left Femur Total: g/cm2 (0.748) / T-score (-1.6) / Z-score (0.7) Left Femoral Neck: g/cm2 (0.640) / T-score (-1.9) / Z-score (0.6) Right Femur Total: g/cm2 (0.727) / T-score (-1.8) / Z-score (0.6) Right Femoral Neck: g/cm2 (0.677) / T-score (-1.5) / Z-score (1.0) The T-Scores on the most recent prior examination were: Lumbar Spine (L1-L4): There has been worsening of bone density since the previous examination. Left Femur Total: which represents an improvement of 5.4%. Right Femur Total: which represents an improvement of 1.5%. BD/Dexa Bone Density Study IMPRESSION: The patient is considered osteopenic as outlined below according to World [place] Organization (WHO) criteria with a moderate fracture risk. There has been worsening of bone density since the previous examination. Reference Information: The T-score is the number of standard deviations above or below the standard which is normal for young adults at their peak bone mineral density. The World Health Organization (WHO) interprets the T-scores as follows: Above -1 Normal bone density Between -1 and -2.5 Osteopenia Equal to / or below -2.5 Osteoporosis As a practical clinical guideline, osteopenia may be graded as follows: Mild -1 through -1.5 Moderate -1.6 through -2.0 Severe -2.1 through -2.4 The Z-score is the number of standard deviations above or below age-matched controls. A Z-score of less than -1.5 would be considered abnormal. References: 1. NIH Osteoporosis and Related Bone Diseases www osteo.org 2. International Society for Clinical Densitometry www iscd.org 3. National Osteoporosis Foundation www nof.org Electronically Signed: Denis Casillas MD at 9:50 EDT ,
== END 2021-07-03 23:59 | disposition home or self-care (01) ==
LOC: OPBD 15:44
PROVIDERS: PCP Internal Medicine; Visit Provider Internal Medicine
DX: Z78.0 Asymptomatic menopausal state (principal); Z12.31 Encounter for screening mammogram for malignant neoplasm of breast
CPT/HCPCS: 77063; 77067; 77080

== ENCOUNTER 2021-07-30 09:03 | Outpatient (CLI) | payer MEDICARE, OTHER, SELFPAY ==
[2021-07-30 09:23] LABS: Absolute Lymphocyte Count 1.26 X10^3/uL (0.83-4.51); Absolute Neutrophil Count 3.3 X10^3/uL (2.0-7.7); Basophil# 0.01 X10^3/uL; Basophil% 0.2 % (0-1); Eosinophil# 0.07 X10^3/uL; Eosinophils% 1.4 % (0-5); Hematocrit 41.3 % (37-47); Hemoglobin 13.3 g/dL (12.0-15.0); Lymphocyte # 1.26 X10^3/ul (0.83-4.51); Lymphocyte % 24.6 % (19-41); Mean Corp Hgb Conc 32.2 g/dL (32-36); Mean Corpuscular Hgb 29.4 pg (27.0-32.0); Mean Corpuscular Volume 91.4 fL (81-99); Mean Platelet Vol. 10.3 fl (6.2-12.0); Monocyte% 9.8 % (0-10); NRBC Flagged by Analyzer 0 % (0-5); Neutrophil # 3.25 X10^3/uL (2.7-7.7); Neutrophil % 63.4 % (47-70); Platelet Count 201 K/mm3 (150-450); RBC Distribution Width CV 13.5 % (11.6-14.6); RBC Distribution Width SD 45.6 fl (35.1-43.9); Red Blood Count 4.52 M/mm3 (4.2-5.4); White Blood Count 5.1 K/mm3 (4.4-11.0)
[2021-07-30 09:39] LABS: ALB/GLOB Ratio 1.2 RATIO (0.9-2.4); AST(SGOT) 16 U/L (15-37); Alanine Aminotransfer ALT/SGPT 16 U/L (13-56); Albumin, Serum 3.7 g/dL (3.2-5.0); Alkaline Phosphatase 59 U/L (45-117); Anion Gap 5 (5-15); BUN 28 mg/dL (7-18); BUN/Creat Ratio 23.7 RATIO (10-20); Calcium,Total 9.1 mg/dL (8.5-10.1); Chloride 109 mmol/L (98-107); Creatinine, Serum 1.18 mg/dL (0.55-1.02); EST Glomerular Filtration Rate 46 mL/min (>60); Est Glom Filt Rate - Afr Amer 56 mL/min (>60); Globulin 3.2 g/dL (2.2-4.2); Glucose 123 mg/dL (74-106); LDH 175 U/L (84-246); Potassium 4.4 mmol/L (3.5-5.1); Protein, Total 6.9 g/dL (6.4-8.2); Sodium Level 141 mmol/L (136-145)
[2021-07-30 17:20] LABS: Xtra Tube EP Lab EXTRA TUBE
[2021-08-01 10:27] LABS: Immunoglobulin G 555 mg/dL (586-1602)
== END 2021-07-30 23:59 | disposition home or self-care (01) ==
PROVIDERS: PCP Internal Medicine; Visit Provider Internal Medicine Medical Oncology
DX: C91.10 Chronic lymphocytic leukemia of B-cell type not having achieved remission (principal); D80.1 Nonfamilial hypogammaglobulinemia
CPT/HCPCS: 36415; 80053; 82784; 83615; 85025

== ENCOUNTER 2021-08-16 05:39 | Emergency (ER) | payer MEDICARE, OTHER, SELFPAY ==
[2021-08-16 05:40] VITALS: BP 175/75; PULSE 79; RESP 18; TEMP 36.4; O2SAT 98; BMI 27.0
--- NOTE | 2021-08-16 05:42 | CT_ITS ---
EXAM: CT cervical spine. HISTORY: head injury TECHNIQUE: No intravenous contrast. COMPARISON: None. LIMITATIONS: None. FRACTURES: None. SPINAL CANAL: No significant stenosis. DEGENERATIVE CHANGE: Moderate degenerative change. SOFT TISSUE: Normal. OTHER: None. CONCLUSION: No acute fracture. Electronically Signed: Jasbir Gutierrez MD at 6:31 EDT , CT/Spine Cervical without Contras IMPRESSION: undefined
--- NOTE | 2021-08-16 05:42 | CT_ITS ---
EXAM: CT brain without IV contrast. HISTORY: head injury TECHNIQUE: No intravenous contrast. COMPARISON: None. LIMITATIONS: None. BRAIN: Mild involutional change. Mild low attenuation bilaterally within the deep white matter, likely secondary to chronic microvascular ischemia. VENTRICLES: No hydrocephalus. EXTRA-AXIAL SPACES: No acute hemorrhage. CALVARIUM/SKULL BASE: No acute fracture. FACE/SINUSES: Fracture of the right nasal bone. SOFT TISSUES: Laceration of the right frontal scalp. Soft tissue swelling of the right side of the face. OTHER: None. CONCLUSION: No acute intracranial abnormality. Right nasal bone fracture. Electronically Signed: Jasbir Gutierrez MD at 6:25 EDT , CT/Brain/Head without Contrast IMPRESSION: undefined
--- NOTE | 2021-08-16 05:58 | RAD_ITS ---
EXAM: XR Hip Unilateral with Pelvis when performed; 2-3 Views HISTORY: pain TECHNIQUE: XR Right Hip Unilateral with Pelvis when performed; 2-3 Views COMPARISON: None. LIMITATIONS: None. FINDINGS: A frontal view of the pelvis as well as frontal and lateral views of the right hip were obtained. No acute fracture is identified. No dislocation. RAD/HIP, UNI W/ Pelvis 2-3 Views IMPRESSION: No fracture or dislocation. Electronically Signed: Jasbir Gutierrez MD at 6:35 EDT ,
--- NOTE | 2021-08-16 06:09 | EDS_ITS ---
HPI History of Present Illness Chief Complaint: Fall Narrative Narrative: Patient is a 85-year-old female from home. She states she got up this morning to use the restroom and lost her balance and fell and struck the right side of her head on a table next to the bed. She denies any loss of consciousness or blood thinner use. She states that she was able to activate her life alert after the fall and that she was only down for approximately 10 to 15-minute. Patient reports mild headache at this time as well as right hip pain. Otherwise she denies any nausea vomiting or change in vision. She does states she sustained lacerations to the head and has concerned she may need sutures as well. 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), type 2 with peripheral vascular complications Essential (primary) hypertension Gout HLD (hyperlipidemia) Hypogammaglobulinemia, acquired Left bundle branch block (LBBB) Macular degeneration Mitral valve annular calcification Nonrheumatic mitral (valve) insufficiency Nonsustained ventricular tachycardia Obstructive hypertrophic cardiomyopathy Other specified transient cerebral ischemias Peripheral edema Proteinuria Skin tear of left upper extremity Uncontrolled hypertension URI (upper respiratory infection) Urinary frequency Home Medications aspirin 81 mg PO DAILY@0800 02/04/13 [History Last Taken Unknown] metoprolol tartrate 50 mg PO BID 02/04/13 [History Last Taken Unknown] cholecalciferol (vitamin D3) 1 tab PO DAILY 05/18/15 [History Last Taken Unknown] duloxetine 60 mg PO DAILY 04/11/16 [History Last Taken Unknown] gabapentin 300 mg PO TID 10/28/16 [History Last Taken Unknown] simvastatin 40 mg PO QHS 10/28/16 [History Last Taken Unknown] furosemide 20 mg tablet 60 mg PO QODAY tab 05/13/17 [History Last Taken Unknown] mirabegron 50 mg tablet,extended release 24 hr 50 mg PO QDAY 05/13/17 [History Last Taken Unknown] arginine (L-arginine) 3,000 mg PO BID 10/29/17 [History Last Taken Unknown] fesoterodine 4 mg tablet,extended release 24 hr 4 mg PO QDAY 11/11/17 [History Last Taken Unknown] cyanocobalamin (vitamin B-12) 1,000 mcg PO QWEEK 11/26/17 [History Last Taken Unknown] levothyroxine 50 mcg PO DAILY 12/24/17 [History Last Taken Unknown] furosemide 20 mg PO QODAY 07/14/19 [History Last Taken Unknown] ciprofloxacin HCl 500 mg PO BID 01/15/21 [History Last Taken Unknown] vit C 250 mg-vit E 90 mg-zinc 40 mg-copper 1 [id number] capsule 1 tab PO BID 01/24/21 [History Last Taken Unknown] acyclovir 800 mg tablet mg PO 05/16/21 [History Last Taken Unknown] Allergy/AdvReac Type Severity Reaction Status Date / Time amoxicillin trihydrate AdvReac Severe Vomiting Verified 07/11/21 09:17 [From Augmentin] lidocaine AdvReac Severe Other Verified 07/11/21 09:17 Penicillins AdvReac Severe Vomiting Verified 07/11/21 09:17 potassium clavulanate AdvReac Severe Vomiting Verified 07/11/21 09:17 [From Augmentin] Family History Father , age 86 CAD (coronary artery disease) Sister Asthma Surgical History H/O coronary artery bypass surgery (01/15/11) History of appendectomy History of cholecystectomy History of coronary artery stent placement (06/17/11) History of electrophysiologic study (01/21/11) History of hysterectomy History of mitral valve repair (01/15/11) History of tonsillectomy nerve ablation for pain management Presence of permanent cardiac pacemaker (01/21/11) Social History Smoking Status: Never smoker alcohol intake: never substance use type: does not use what type of physical activity do you participate in: walking and weight training frequency: 5-6 times per week ROS ROS ED Constitutional Constitutional ED: Denies chills or fever(s) ENT ENT ED: Denies sore throat Cardiovascular Cardiovascular: Denies chest pain Respiratory/Chest Respiratory/Chest: Denies cough or dyspnea Gastrointestinal Gastrointestinal: Denies abdominal pain, diarrhea, nausea or vomiting Genitourinary Genitourinary ED: Denies dysuria Musculoskeletal Musculoskeletal: Reports neck pain and other Details: Positive right hip pain ; Denies back pain or myalgias Integumentary Reports other Details: Positive head/facial laceration ; Denies rash Neurologic Neurologic: Reports headache(s) Hematologic/Lymphatic Hematologic/Lymphatic: Denies easy bleeding or easy bruising EXAM Physical Exam Const Vital Signs: 08/16/21 05:40 08/16/21 05:50 Temperature 97.6 F L Temperature Source Temporal Pulse Rate 79 Respiratory Rate 18 Respiratory Effort Normal Non-Labored Respiratory Depth Normal Respiratory Pattern Normal Blood Pressure 175/75 H Blood Pressure Mean 108 Pulse Ox 98 Oxygen Delivery Method Room Air Room Air Positive well nourished and well developed General Appearance ED: well developed HEENT HEENT Narrative: No signs of depressed or basilar skull fracture. Patient has a hematoma to the right lower portion of the forehead. There are 2 vertical lacerations that are subcutaneous layer deep with minimal ooze of blood over top the hematoma. The more medial laceration is 2.5 cm in length. The more lateral laceration is 4 cm in length. they are both linear. There are no obvious foreign body and there is minimal ooze of blood. Eyes PERRL and EOMs intact bilaterally Eyes Narrative: No hyphema Neck supple Neck Narrative: No bony deformity or step-off of the cervical spine but there is mild midline pain with palpation Chest Wall palpation of chest normal Resp normal respiratory effort and clear to auscultation bilaterally Cardio regular rate and regular rhythm GI normal to inspection, nondistended, normoactive bowel sounds, non-tender, non- distended and no masses Auscultation: normoactive bowel sounds Palpation: soft Back/Spine Back/Spine Narrative: No bony deformity or step-off of the thoracic or lumbar spine no midline pain with palpation Extremity Extremity Narrative: Pelvis is stable there is no shortening or external rotation of either lower extremity. Patient does have mild pain with palpation of the right hip over top the greater trochanter region. However she is able to lift both lower and upper extremities without difficulty Neuro oriented x3 and CN's II-XII intact bilaterally Sensorium / Orientation: alert Motor Exam: strength 5/5 throughout Psych mental status grossly normal Skin Skin Narrative: Hematoma and laceration to the right portion of the forehead as documented above MDM MDM MDM Narrative Medical decision making narrative: Patient presented to the ER slightly hypertensive but otherwise with stable vitals. She reported a mechanical fall so I felt no need for cardiac or syncope work-up. CTs of the head and neck were obtained because of the head trauma as well as a pelvis x-ray as she had pain with palpation. CTs revealed a right nasal bone fracture but otherwise no skull fracture or brain bleed or cervical spine injury. The lacerations were sewn as documented below and following this patient was ambulated. The patient was able to ambulate with a steady gait in the ER and is therefore safe for discharge Patient had the wounds to the forehead cleaned with chlorhexidine. They were anesthetized with a total of 9 cc of 2% lidocaine with epinephrine in local fashion. The wounds were copiously irrigated with normal. Then four 4-0 Ethilon sutures were placed in simple interrupted fashion to the medial right forehead wound. A total of eight 4-0 Ethilon sutures were placed to the lateral forehead wound. These were also placed in simple interrupted fashion. The sutures held the wound together good approximation and patient tolerated procedure well without complication Radiography Diagnostic Testing: Clinical Impression(s) from Imaging Studies Brain CT 08/16/21 05:42 IMPRESSION: undefined Cervical Spine CT 08/16/21 05:42 IMPRESSION: undefined Hip/Pelvis X-Ray 08/16/21 05:58 IMPRESSION: No fracture or dislocation. Electronically Signed: Jasbir Gutierrez MD at 6:35 EDT Reading Location ID and State: [address] [place] [address] Tel , Service support , X-ray of the right hip and pelvis as interpreted by the emergency medicine physician reveals no acute fracture or dislocation Discharge Plan Triage Chief Complaint: Fall ED Provider: Jeramy Olea Dx/Rx/DC Orders Clinical Impression: Forehead laceration, Closed fracture nasal bone, Closed head injury Instructions: ED Nose Fracture, with X-Ray, ED Head Injury (Adult), ED Laceration: All Closures Prescriptions: No Action mirabegron [Myrbetriq] 50 mg tablet extended release 24 hr 50 mg PO QDAY RF: 0 furosemide [Lasix] 20 mg tablet 60 mg PO QODAY RF: 0 fesoterodine [Toviaz] 4 mg tablet extended release 24 hr 4 mg PO QDAY RF: 0 PreserVision AREDS-2 250-90-40-1 mg capsule 1 tab PO BID RF: 0 acyclovir 800 mg tablet PO RF: 0 metoprolol tartrate 50 MG tablet 50 mg PO BID RF: 0 aspirin 81 MG tablet,chewable 81 mg PO DAILY@0800 RF: 0 cholecalciferol (vitamin D3) 5,000 UNIT capsule 1 tab PO DAILY RF: 0 duloxetine 60 MG capsule,delayed release(DR/EC) 60 mg PO DAILY RF: 0 gabapentin 300 MG capsule 300 mg PO TID RF: 0 simvastatin 40 MG tablet 40 mg PO QHS RF: 0 arginine (L-arginine) 500 MG tablet 3,000 mg PO BID RF: 0 cyanocobalamin (vitamin B-12) 500 MCG tablet 1,000 mcg PO QWEEK RF: 0 levothyroxine 50 MCG tablet 50 mcg PO DAILY RF: 0 furosemide 20 MG tablet 20 mg PO QODAY RF: 0 ciprofloxacin HCl 500 mg tablet 500 mg PO BID RF: 0 Primary Care Provider: Susie Dang Referrals: Susie Dang DO [Primary Care Provider] - Activity Restrictions/Additional Instructions: Please return to the ER or see your family doctor in 7 to 10 days for suture removal Disposition Disposition: Home, Self Care
[2021-08-16] MEDS: Lidocaine 2% /Epi 1:100 (20ml) 20 ML VIAL INFILT (07:36)
--- NOTE | 2021-08-21 13:26 | CM.ED ---
ER RNCM DC F/u Call: ED Visit 08/16/21 for mechanical fall + Rt nasal bone Fx and lac to forehead with sutures. Call listed number on demographics, forwarded to VM. VM did not identify correct patient identity and therefore no VM was left by this technical report writer at this time. Felix Lux RNCM
== END 2021-08-16 07:42 | disposition home or self-care (01) ==
PROVIDERS: Emergency Provider Emergency Medicine; PCP Internal Medicine; Visit Provider Emergency Medicine
DX: S01.81XA Laceration without foreign body of other part of head, initial encounter (principal); S02.2XXA Fracture of nasal bones, initial encounter for closed fracture; S09.90XA Unspecified injury of head, initial encounter; I25.10 Atherosclerotic heart disease of native coronary artery without angina pectoris; Z95.5 Presence of coronary angioplasty implant and graft; Z95.0 Presence of cardiac pacemaker; W19.XXXA Unspecified fall, initial encounter
CPT/HCPCS: 70450; 72125; 73502; 99284

== ENCOUNTER 2021-09-10 11:40 | Emergency (ER) | payer MEDICARE, OTHER, SELFPAY ==
[2021-09-10 11:40] VITALS: BP 154/84; PULSE 75; RESP 13; TEMP 36.6; O2SAT 96; BMI 27.7
--- NOTE | 2021-09-10 11:51 | RAD_ITS ---
STUDY: X-RAY CHEST REASON FOR EXAM: Female, 85 years old. sob TECHNIQUE: AP COMPARISON: 01/15/2021 FINDINGS: EKG leads project over the chest. Sternal wires and mediastinal surgical clips compatible with prior CABG. Two lead cardiac conduction device is seen via the left subclavian vein with lead tips projecting over the right atrium and right ventricle, respectively. Stable granuloma in the right midlung. Platelike atelectasis in the bilateral lung bases with generalized hypoinflation. No airspace consolidation. Normal size heart. Normal mediastinum and miguel. Normal visualized pulmonary arteries. There is atherosclerotic calcification of the aortic arch with tortuosity. No acute bony process. There is no demonstrated abnormality of the visualized soft tissue structures of the upper abdomen. RAD/Chest 1 View (Portable) IMPRESSION: Hypoinflation with bibasilar atelectasis. Otherwise stable. Electronically Signed: Brenton Palacio MD ([place]) at 14:10 EDT ,
--- NOTE | 2021-09-10 11:52 | EKG12_ITS ---
Test Reason : Blood Pressure : / mmHG Vent. Rate : 063 BPM Atrial Rate : 063 BPM P-R Int : 208 ms QRS Dur : 182 ms QT Int : 474 ms P-R-T Axes : -18 -57 115 degrees QTc Int : 485 ms AV dual-paced rhythm Abnormal ECG Confirmed by HAILEE KOCH MD ([id number]), graphics editor JES BURROUGHS ([id number]) on 09/11/2021 1:30:23 PM Referred By: OSORIO Confirmed By:HAILEE KOCH MD
--- NOTE | 2021-09-10 11:53 | EX.ED.DYSGE1 ---
HPI History of Present Illness Chief Complaint: Weakness Informant: patient Onset/Context/Timing Onset: Today Current Severity: Mild Maximum Severity: Moderate Narrative Narrative: Patient presents secondary to weakness and shortness of breath. She states she woke from sleep at 3 AM this morning feeling short of breath. When it did not resolve after a short time she went out onto her porch. She states about after 20 minutes of breathing the fresh air she started to feel better. She denied any chest pain. She has not had significant cough. This morning she does feels generally weak. 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), type 2 with peripheral vascular complications Essential (primary) hypertension Gout HLD (hyperlipidemia) Hypogammaglobulinemia, acquired Left bundle branch block (LBBB) Macular degeneration Mitral valve annular calcification Nonrheumatic mitral (valve) insufficiency Nonsustained ventricular tachycardia Obstructive hypertrophic cardiomyopathy Other specified transient cerebral ischemias Peripheral edema Proteinuria Skin tear of left upper extremity Uncontrolled hypertension URI (upper respiratory infection) Urinary frequency Home Medications aspirin 81 mg PO DAILY@0800 02/04/13 [History Last Taken Unknown] metoprolol tartrate 50 mg PO BID 02/04/13 [History Last Taken Unknown] cholecalciferol (vitamin D3) 1 tab PO DAILY 05/18/15 [History Last Taken Unknown] duloxetine 60 mg PO DAILY 04/11/16 [History Last Taken Unknown] gabapentin 300 mg PO TID 10/28/16 [History Last Taken Unknown] simvastatin 40 mg PO QHS 10/28/16 [History Last Taken Unknown] furosemide 20 mg tablet 60 mg PO QODAY tab 05/13/17 [History Last Taken Unknown] arginine (L-arginine) 3,000 mg PO BID 10/29/17 [History Last Taken Unknown] cyanocobalamin (vitamin B-12) 1,000 mcg PO QWEEK 11/26/17 [History Last Taken Unknown] levothyroxine 50 mcg PO DAILY 12/24/17 [History Last Taken Unknown] furosemide 20 mg PO QODAY 07/14/19 [History Last Taken Unknown] vit C 250 mg-vit E 90 mg-zinc 40 mg-copper 1 [id number] capsule 1 tab PO BID 01/24/21 [History Last Taken Unknown] acyclovir 800 mg tablet 800 mg PO BID 05/16/21 [History Last Taken Unknown] Allergy/AdvReac Type Severity Reaction Status Date / Time amoxicillin trihydrate AdvReac Severe Vomiting Verified 09/10/21 11:43 [From Augmentin] lidocaine AdvReac Severe Other Verified 09/10/21 11:43 Penicillins AdvReac Severe Vomiting Verified 09/10/21 11:43 potassium clavulanate AdvReac Severe Vomiting Verified 09/10/21 11:43 [From Augmentin] Family History Father , age 86 CAD (coronary artery disease) Sister Asthma Surgical History H/O coronary artery bypass surgery (01/15/11) History of appendectomy History of cholecystectomy History of coronary artery stent placement (06/17/11) History of electrophysiologic study (01/21/11) History of hysterectomy History of mitral valve repair (01/15/11) History of tonsillectomy nerve ablation for pain management Presence of permanent cardiac pacemaker (01/21/11) Social History Smoking Status: Never smoker alcohol intake: never substance use type: does not use caffeine: Yes Type: coffee Number of servings: 2 what type of physical activity do you participate in: walking and weight training frequency: 5-6 times per week ROS ROS ED Constitutional Constitutional ED: Denies chills or fever(s) Eyes Eyes: Denies change in vision ENT ENT ED: Denies sore throat Cardiovascular Cardiovascular: Denies chest pain Respiratory/Chest Respiratory/Chest: Reports dyspnea; Denies cough Gastrointestinal Gastrointestinal: Denies abdominal pain, diarrhea, nausea or vomiting Genitourinary Genitourinary ED: Denies dysuria Musculoskeletal Musculoskeletal: Denies back pain Integumentary Denies rash Neurologic Neurologic: Reports weakness; Denies headache(s) Allergic/Immunologic Allergic/Immunologic ED: Denies urticaria EXAM Physical Exam Const Vital Signs: 09/10/21 11:40 09/10/21 12:17 09/10/21 12:20 Temperature 97.8 F Temperature Source Temporal Pulse Rate 75 61 Respiratory Rate 13 18 Respiratory Effort Normal Non-Labored Respiratory Pattern Normal Blood Pressure 154/84 H 169/78 H Blood Pressure Mean 107 108 Pulse Ox 96 97 Oxygen Delivery Method Room Air Room Air 09/10/21 13:49 Temperature Temperature Source Pulse Rate Respiratory Rate Respiratory Effort Respiratory Pattern Blood Pressure 173/73 H Blood Pressure Mean 106 Pulse Ox Oxygen Delivery Method Room Air Positive well nourished and well developed General Appearance ED: well developed HEENT Reports moist mucous membranes Eyes PERRL and EOMs intact bilaterally Neck supple Chest Wall inspection of chest normal Resp normal respiratory effort and clear to auscultation bilaterally Cardio regular rate and regular rhythm GI non-tender Palpation: soft Extremity normal to inspection General Extremety ED: Negative for edema General Extremity: Negative for edema Neuro oriented x3 Sensorium / Orientation: alert Psych mental status grossly normal Skin no rashes or lesions noted MDM MDM MDM Narrative Medical decision making narrative: EKG, chest x-ray, lab work obtained. Swabs for COVID and influenza ordered. Lab Data Attestation: I reviewed the patient's lab results. Labs: Laboratory Results - last 24 hr 09/10/21 09/10/21 09/10/21 12:00 12:00 12:00 WBC 6.0 RBC 4.78 Hgb 13.8 Hct 44.2 MCV 92.5 MCH 28.9 MCHC 31.2 L RDW Std Deviation 47.3 H RDW Coeff of Patrice 13.9 Plt Count 179 MPV 10.1 Immature Gran % (Auto) 0.500 Neut % (Auto) 72.2 H Lymph % (Auto) 18.[address] [place] % (Auto) 7.2 Eos % (Auto) 1.2 Baso % (Auto) 0.2 Absolute Neuts (auto) 4.3 Absolute Lymphs (auto) 1.12 Nucleated RBC % 0 D-Dimer Quant (PE/DVT) 0.56 H* Sodium 142 Potassium 4.5 Chloride 109 H Carbon Dioxide 29.0 Anion Gap 4 L BUN 17 Creatinine 1.12 H Estim Creat Clear Calc 35.71 Est GFR (MDRD) Af Amer 59 L Est GFR (MDRD) Non-Af 49 L BUN/Creatinine Ratio 15.2 Glucose 118 H Calcium 9.2 Troponin I High Sens 55 H B-Natriuretic Peptide 09/10/21 09/10/21 12:00 14:05 WBC RBC Hgb Hct MCV MCH MCHC RDW Std Deviation RDW Coeff of Patrice Plt Count MPV Immature Gran % (Auto) Neut % (Auto) Lymph % (Auto) [place] % (Auto) Eos % (Auto) Baso % (Auto) Absolute Neuts (auto) Absolute Lymphs (auto) Nucleated RBC % D-Dimer Quant (PE/DVT) Sodium Potassium Chloride Carbon Dioxide Anion Gap BUN Creatinine Estim Creat Clear Calc Est GFR (MDRD) Af Amer Est GFR (MDRD) Non-Af BUN/Creatinine Ratio Glucose Calcium Troponin I High Sens 60 H B-Natriuretic Peptide 704.8 H Radiography Chest X-Ray - ED: 1 View, Read by ED Physician and Chronic Changes Diagnostic Testing: Clinical Impression(s) from Imaging Studies Chest X-Ray 09/10/21 11:51 IMPRESSION: Hypoinflation with bibasilar atelectasis. Otherwise stable. Electronically Signed: Brenton Palacio MD (Brooks) at 14:10 EDT Reading Location ID and State: [facility] / [place] , Service support , EKG Initial EKG: Attestation: I personally reviewed and interpreted this EKG as follows: Interpretation: - (AV paced rhythm at 63 bpm. No acute ischemia.) Treatment and Re-Evaluation Narrative: Patient resting comfortably. She has denied any chest pain. Initial troponin returns at 55. CBC normal. D-dimer 0.56, normal when adjusted for age. Chemistry studies unremarkable and BNP elevated at 704. Patient is given 20 mg of IV Lasix. 2-hour troponin is obtained and is 60. This is not a significant change with a delta of only 5. At this time she feels well. O2 sat is 97% on room air. Patient be discharged home to continue her Lasix as previously prescribed. Return instructions given. Discharge Plan Triage Chief Complaint: Weakness ED Provider: Rosalind Rubio Dx/Rx/DC Orders Clinical Impression: CHF (congestive heart failure) Instructions: ED Heart Failure, Congestive (CHF) Prescriptions: No Action furosemide [Lasix] 20 mg tablet 60 mg PO QODAY RF: 0 PreserVision AREDS-2 250-90-40-1 mg capsule 1 tab PO BID RF: 0 acyclovir 800 mg tablet 800 mg PO BID RF: 0 metoprolol tartrate 50 MG tablet 50 mg PO BID RF: 0 aspirin 81 MG tablet,chewable 81 mg PO DAILY@0800 RF: 0 cholecalciferol (vitamin D3) 5,000 UNIT capsule 1 tab PO DAILY RF: 0 duloxetine 60 MG capsule,delayed release(DR/EC) 60 mg PO DAILY RF: 0 gabapentin 300 MG capsule 300 mg PO TID RF: 0 simvastatin 40 MG tablet 40 mg PO QHS RF: 0 arginine (L-arginine) 500 MG tablet 3,000 mg PO BID RF: 0 cyanocobalamin (vitamin B-12) 500 MCG tablet 1,000 mcg PO QWEEK RF: 0 levothyroxine 50 MCG tablet 50 mcg PO DAILY RF: 0 furosemide 20 MG tablet 20 mg PO QODAY RF: 0 Primary Care Provider: Susie Dang Referrals: Susie Dang DO [Primary Care Provider] - 3-5 Days if not improving Disposition Disposition: Home, Self Care
[2021-09-10 12:12] LABS: Absolute Lymphocyte Count 1.12 X10^3/uL (0.83-4.51); Absolute Neutrophil Count 4.3 X10^3/uL (2.0-7.7); Basophil# 0.01 X10^3/uL; Basophil% 0.2 % (0-1); Eosinophil# 0.07 X10^3/uL; Eosinophils% 1.2 % (0-5); Hematocrit 44.2 % (37-47); Hemoglobin 13.8 g/dL (12.0-15.0); Lymphocyte # 1.12 X10^3/ul (0.83-4.51); Lymphocyte % 18.7 % (19-41); Mean Corp Hgb Conc 31.2 g/dL (32-36); Mean Corpuscular Hgb 28.9 pg (27.0-32.0); Mean Corpuscular Volume 92.5 fL (81-99); Mean Platelet Vol. 10.1 fl (6.2-12.0); Monocyte# 0.43 X10^3/uL; Monocyte% 7.2 % (0-10); NRBC Flagged by Analyzer 0 % (0-5); Neutrophil # 4.34 X10^3/uL (2.7-7.7); Neutrophil % 72.2 % (47-70); Platelet Count 179 K/mm3 (150-450); RBC Distribution Width CV 13.9 % (11.6-14.6); RBC Distribution Width SD 47.3 fl (35.1-43.9); Red Blood Count 4.78 M/mm3 (4.2-5.4)
[2021-09-10 12:17] VITALS: BP 169/78; PULSE 61; RESP 18; O2SAT 97
[2021-09-10 12:23] LABS: D-Dimer Quantitative (DVT/PE) 0.56 FEU/ug/m (0.27-0.49)
[2021-09-10 12:28] LABS: Anion Gap 4 (5-15); BUN 17 mg/dL (7-18); BUN/Creat Ratio 15.2 RATIO (10-20); Calcium,Total 9.2 mg/dL (8.5-10.1); Chloride 109 mmol/L (98-107); Creatinine, Serum 1.12 mg/dL (0.55-1.02); EST Glomerular Filtration Rate 49 mL/min (>60); Est Glom Filt Rate - Afr Amer 59 mL/min (>60); Estimated Creatinine Clearance 35.71 ml/min; Glucose 118 mg/dL (74-106); Potassium 4.5 mmol/L (3.5-5.1); Sodium Level 142 mmol/L (136-145); Troponin-I HS 55 pg/mL (3.0-54.0)
[2021-09-10 12:48] LABS: BNP,B-Type NATRIURETIC PEPTIDE 704.8 pg/mL (0-100)
[2021-09-10] MEDS: Furosemide 20 MG/2 ML VIAL IV (13:31)
[2021-09-10 13:49] VITALS: BP 173/73
--- NOTE | 2021-09-10 14:09 | NURSING ---
pt up to bsc and back to bed with sba and did well. pt denies any weakness now or any dizziness when changed positioning. delta trop drawn and pending
[2021-09-10 14:32] LABS: Troponin-I HS 60 pg/mL (3.0-54.0)
== END 2021-09-10 16:16 | disposition home or self-care (01) ==
PROVIDERS: Emergency Provider Emergency Medicine; PCP Internal Medicine; Visit Provider Emergency Medicine
DX: I11.0 Hypertensive heart disease with heart failure (principal); I50.9 Heart failure, unspecified; I42.1 Obstructive hypertrophic cardiomyopathy; I25.10 Atherosclerotic heart disease of native coronary artery without angina pectoris; E78.5 Hyperlipidemia, unspecified; Z95.0 Presence of cardiac pacemaker; Z79.82 Long term (current) use of aspirin; Z79.899 Other long term (current) drug therapy
CPT/HCPCS: 71045; 80048; 83880; 84484; 85025; 85379; 87428; 93005; 96374; 99285; A4216; J1940

== ENCOUNTER 2021-11-05 10:00 | Outpatient (RCR) | payer MEDICARE, OTHER, SELFPAY ==
--- NOTE | 2021-08-30 16:46 | HP.PTEVAL_ITS ---
Patient's Visit Information BEVERLY GARCIA is a 85 year old F referred to Physical Therapy by Dr. Susie Dang DO with a diagnosis of Generalized weakness, off balance. Date of Evaluation: 08/30/21 Physical Therapist: Luke Rodriguez, RUFINAT, OCS, CSCS - Visit Plan Frequency: 2x /Week Duration: 4-6 Weeks Plan: Neurocom balance test then 2x/week for 4-6 weeks for. strength and balance per results to HEP as safety allows. - Subjective Fell two weeks ago momentarily losing balance. No dizzyness , no neuropathy. Unsteady and needed 12 stitches a broken nose. That is the only fall lately. Was not using cane at the time but has since. Happened at 4:30 in am just waking. Needs to sit edge of bed a bit but did not do it long enough. Sleep is OK. Not employed. Spends day reading and plant chacon. Activities are normal and she tries anything she wants but does feel unsteady. has felt unsteady for long time and had PT prior helped. No regualr exercises at home. Not employed, retired 20 yrs. No steps, lives with great nephew and he takes care of house. She dresses sefl and ADLs on her own. - Objective Cane in R UE for ambulation mod I. Steps with one rail reciprocally but weak obviouskly and very tired after steps. Trasnfers chair I. Strength LE 4-/5 in knees and ankles and 3+ in hip abd and ext and flexion. reflexes 1/3 patella and achilles. Sensation WNL to gross light touch in LE. HS and psoas mod tight. Slow to turn even 90 degrees. - Balance/Special Test Scores Functional Gait Assessment Score: 20 % Disability: 33.3400 Lower Extremity Functional Score: 32 TUG Test Time Seconds: 14 30 Second Chair Rise Test Seconds: 10 - Goals Goal 1:: I appropriate HEP for balance management and strength management. Goal Time Frame: 4-6 Weeks Goal 2:: 12+ on 30 sec sit to stand and 22/30 on balance to diminish fall risk Goal Time Frame: 4-6 Weeks Goal 3:: Pt feel 75% improvement in steadiness. Goal Time Frame: 4-6 Weeks - Rehabilitation Potential Physical Therapy Diagnosis: weakness and unsteadiness. Rehabilitation Potential: Fair - Anticipated Interventions Patient/Client Instruction: Educate patient on: Condition, Plan of Care For the Purpose of:: To improve muscle performance and motor function, To increase tolerance to activity/condition/position, To improve gait and locomotor functions Therapeutic Exercise to Include: Strength training, Balance training, Postural training For the Purpose of:: To increase ROM, To improve muscle performance and motor function, To increase tolerance to activity/condition/position, To improve ability of physical actions for home/community/work/leisure, To improve gait and locomotor functions, To improve balance Thank you for the opportunity to evaluate your patient. For Medicare and Medicare HMO plans, please review the plan of care and approve it. It will need to be FAXED BACK to us at [phone] for Medicare purposes. For Medicare only, by signing this I certify the plan of care. Please let me know if there are questions or concerns regarding this plan of care. Physician Signature: Date:
--- NOTE | 2021-10-01 10:53 | HP.PTREVAL ---
Dr. Susie Dang, DO, It has been my pleasure to treat BEVERLY GARCIA over the last 9 visits for Generalized weakness, off balance. Please see the progress note below for an update on the physical therapy plan of care! Subjective: Getting better. I can get out of chair easier. Everything easier. Doing HEP standing at counter 2x/day. Uses pedal bike at home. sleeping well. No pain. Wants to continue with exercises via HEP. Wants to f/u in 3 weeks.No falls , No AD used at home. Objective/Function: Improved TUG and FGA, 30 sec sit to stand distracted today. Pt doing better with goals and wants to try on her own with HEp and f/u in a month. Plan Plan: Pt to cotninue HEP and call if problems. Will f/u one month to check funcitonal testing and tweak ex if needed. New maintenance goal and fair prognosis. Balance/Gait/Functional tests - Balance/Special Test Scores Functional Gait Assessment Score: 23 % Disability: 23.3400 Lower Extremity Functional Score: 47 TUG Test Time Seconds: 12 Tug Test: <20 sec.=mostly independent 30 Second Chair Rise Test Seconds: 7 Goals Goal 1:: I appropriate HEP for balance management and strength management. Goal Time Frame: 4-6 Weeks Goal Progress: Goal Met Goal 2:: 12+ on 30 sec sit to stand and 22/30 on balance to diminish fall risk Goal Time Frame: 4-6 Weeks Goal Progress: Part met Goal 3:: Pt feel 75% improvement in steadiness. Goal Time Frame: 4-6 Weeks Goal Progress: 60% Goal 4:: Pt to maintain improvements on her own via HEP with TUG at 12 sec, FGA at 23 and 30 sec sit to stand at 10 Goal Time Frame: 4-6 Weeks Goal Progress: NEW GOAL Anticipated Interventions Patient/Client Instruction: Educate patient on: Condition, Plan of Care For the Purpose of:: To improve muscle performance and motor function, To increase tolerance to activity/condition/position, To improve gait and locomotor functions Therapeutic Exercise to Include: Strength training, Balance training, Postural training For the Purpose of:: To increase ROM, To improve muscle performance and motor function, To increase tolerance to activity/condition/position, To improve ability of physical actions for home/community/work/leisure, To improve gait and locomotor functions, To improve balance Please do not hesitate to contact me at [phone] by phone or if you have questions or concerns regarding this new plan of care! Sincerely, Luke Rodriguez, DPT, OCS, CSCS
--- NOTE | 2021-11-05 10:48 | HP.PTDCSUM ---
It has been my pleasure to treat BEVERLY GARCIA referred by Dr. Susie Dang DO, with the diagnosis of Generalized weakness, off balance for a total of 10 visit(s). Discharge Date: 11/05/21 Please see the following information for a summary of their discharge status. Subjective: Not as well as I had hoped. She was not feeling up to par, did not have drive to get up and continue exercises. Still feels like she is holding her own and doing what she needs to. Doing everything that she wants to do. Shoulder hurts sometimes but that is from previous shingles. Did exercises first week adn then no more after that . To doctor tomorrow. % Improvement: 85 Objective/Function: 11 Sit to stand today +1. TU seconds improved. FGA +1 today from last session and doing very well. Noncompliant with HEp but more active than used to be . Goal 1:: I appropriate HEP for balance management and strength management. Goal Progress: Goal Met Goal 2:: 12+ on 30 sec sit to stand and on balance to diminish fall risk Goal Progress: Part met Goal 3:: Pt feel 75% improvement in steadiness. Goal Progress: Goal Met Goal 4:: Pt to maintain improvements on her own via HEP with TUG at 12 sec, FGA at 23 and 30 sec sit to stand at 10 Goal Progress: Goal Met Plan: d/c to HEP holding on knee soreness producing ex of squats and step ups and continuing to try to be compliant and progress hip ext, flex, abd and heel raises . Discharge Comments: Pt to continue HEP and f/u with doctor tomorrow. Overall doing well and improving mobility tests and subjective. If there are questions or concerns regarding this patient's physical therapy, please feel free to call me at [phone]. Thank you for the referral of this patient. Sincerely, Luke Rodriguez, DPT, OCS, CSCS Balance/Gait/Functional tests - Balance/Special Test Scores Functional Gait Assessment Score: 24 % Disability: 20.0000 Lower Extremity Functional Score: 47 TUG Test Time Seconds: 12 Tug Test: <20 sec.=mostly independent 30 Second Chair Rise Test Seconds: 11
== END 2021-11-05 12:09 | disposition home or self-care (01) ==
LOC: PT 10:00
PROVIDERS: PCP Internal Medicine; Referring Provider Internal Medicine; Visit Provider Internal Medicine
DX: R26.89 Other abnormalities of gait and mobility (principal); R53.1 Weakness
CPT/HCPCS: 97110; 97162; 97164; 97530; 97750

== ENCOUNTER → 2021-11-20 | Outpatient (CLI) | payer MEDICARE, OTHER, SELFPAY ==
--- NOTE | 2021-11-20 15:00 | RAD_ITS ---
STUDY: X-RAY CHEST REASON FOR EXAM: Female, 86 years old. 4 pacemaker generator change. TECHNIQUE: PA and lateral views of the chest. COMPARISON: 09/10/2021 FINDINGS: Stable calcified granuloma in the lateral right lung. Lungs are otherwise clear. There is no demonstrated pleural abnormality. Sternal cerclage wires are present from a prior sternotomy. The heart is normal in size. Stable left cardiac pacemaker. Normal mediastinum and miguel. Normal visualized pulmonary arteries. There is atherosclerotic calcification of the aortic arch with tortuosity. Normal visualized thoracic spine. Normal visualized ribs, clavicles, and shoulders. There is no demonstrated abnormality of the visualized soft tissue structures of the upper abdomen. RAD/Chest PA and Lateral IMPRESSION: Old granulomatous disease without acute cardiopulmonary process or interval change. Electronically Signed: Hang Leonard DO at 23:17 EDT ,
== END | disposition home or self-care (01) ==
LOC: RAD 14:52
PROVIDERS: PCP Internal Medicine; Referring Provider Internal Medicine Cardiovascular Disease; Visit Provider Internal Medicine Cardiovascular Disease
DX: I42.1 Obstructive hypertrophic cardiomyopathy (principal); I50.32 Chronic diastolic (congestive) heart failure; I44.7 Left bundle-branch block, unspecified; Z95.0 Presence of cardiac pacemaker
CPT/HCPCS: 71046

== ENCOUNTER → 2021-12-19 | Outpatient (CLI) | payer MEDICARE, OTHER, SELFPAY ==
[2021-12-19 18:50] LABS: Anion Gap 8 (5-15); BUN 32 mg/dL (7-18); BUN/Creat Ratio 23.4 RATIO (10-20); Calcium,Total 9.5 mg/dL (8.5-10.1); Chloride 102 mmol/L (98-107); Creatinine, Serum 1.37 mg/dL (0.55-1.02); EST Glomerular Filtration Rate 39 mL/min (>60); Est Glom Filt Rate - Afr Amer 47 mL/min (>60); Glucose 126 mg/dL (74-106); Potassium 4.5 mmol/L (3.5-5.1); Sodium Level 137 mmol/L (136-145)
== END | disposition home or self-care (01) ==
LOC: MTLAB 15:45
PROVIDERS: PCP Internal Medicine; Referring Provider Physician Assistant Medical; Visit Provider Physician Assistant Medical
DX: R06.09 Other forms of dyspnea (principal); I48.92 Unspecified atrial flutter
CPT/HCPCS: 36415; 80048

== ENCOUNTER 2021-12-21 10:20 | Day surgery (SDC) | payer MEDICARE, OTHER, SELFPAY ==
[2021-11-20 15:12] LABS: Mucous, Urine 0 SEEN /hpf (<or=2+); Red Blood Cells-Urine 0 SEEN /hpf (0-5); Squamous Epithelial Cells - UA 0 SEEN /hpf (5-10); White Blood Cells 0 SEEN /hpf (0-5)
[2021-11-20 15:33] LABS: Hematocrit 45.3 % (37-47); Hemoglobin 14.4 g/dL (12.0-15.0); Mean Corp Hgb Conc 31.8 g/dL (32-36); Mean Corpuscular Hgb 29.5 pg (27.0-32.0); Mean Corpuscular Volume 92.8 fL (81-99); Mean Platelet Vol. 10.4 fl (6.2-12.0); Platelet Count 237 K/mm3 (150-450); RBC Distribution Width CV 13.6 % (11.6-14.6); RBC Distribution Width SD 46.4 fl (35.1-43.9); Red Blood Count 4.88 M/mm3 (4.2-5.4)
[2021-11-20 15:48] LABS: Color, Urine Straw (Yellow); Glucose, Dipstick Normal (Normal); Ketone-Dipstick Negative (Negative); Leukocyte Esterase-Dipstick Negative /ul (Negative); Nitrite-Dipstick Negative (Negative); Occult Blood-Urine Negative /ul (Negative); Protein-Dipstick Negative (Negative); Urine Bilirubin Dipstick Negative (Negative); Urine Clarity Clear (Clear); Urine Urobilinogen Normal (Normal)
[2021-11-20 15:56] LABS: Prothrombin Time (Protime)PT. 13.1 SECONDS (11.7-14.9)
[2021-11-20 15:57] LABS: Anion Gap 4 (5-15); BUN 26 mg/dL (7-18); BUN/Creat Ratio 19.8 RATIO (10-20); Calcium,Total 9.8 mg/dL (8.5-10.1); Chloride 104 mmol/L (98-107); Creatinine, Serum 1.31 mg/dL (0.55-1.02); EST Glomerular Filtration Rate 41 mL/min (>60); Est Glom Filt Rate - Afr Amer 50 mL/min (>60); Glucose 97 mg/dL (74-106); Potassium 4.4 mmol/L (3.5-5.1); Sodium Level 138 mmol/L (136-145)
[2021-11-20 16:04] LABS: BNP,B-Type NATRIURETIC PEPTIDE 299.8 pg/mL (0-100)
[2021-11-20 16:09] LABS: Bacteria RARE /hpf (None Seen); Transitional Epithelial - Ur 0-5 SEEN /hpf (0-5)
[2021-12-20 09:12] VITALS: BMI 26.6
--- NOTE | 2021-12-20 21:19 | HP.PCM_ITS ---
History and Physical Date of Admission: 12/21/21 BEVERLY GARCIA, is a 86 yo female with h/o CABG, HTN, and status post pacemaker placement.? She also has a history of a septal myectomy as well as mitral valve repair.? This was in 2010.? She had a left internal mammary artery to the left anterior descending artery, saphenous vein graft to the right coronary artery, saphenous vein graft obtuse marginal branch.? Post drug-eluting stent placement to the? circumflex artery in 2011. She presents today for Generator change as her device has achieved NEGRITO. Pt does see Dr. Dang routinely.? She was last in to see her 2 weeks ago.? She notes that since then she just feels more fatigued, SOB.? She does occasionally have lightheadedness.? She has not had any further falls.? She does not have any chest pain.? She does sometimes feel palpitations.? May for increased short of breath and chest pain.? BNP was elevated.? She was given 1 dose of IV Lasix.? Troponins borderline elevated at 55 and 60.? Patient was discharged home. She will be undergoing a procedure for her bladder next week. She is having residual shoulder pain from shingles. Intake Vital Signs: See EMR ? 08/21/2212:26 10/31/2209:25 11/20/2212:20 11/20/2212:20 Height Intake Visit Reasons:?Generator change Managing Principal Required: No Is patient in pain?: No Allergies amoxicillin trihydrate [From Augmentin] Adverse Reaction (Severe, Verified 11/20/21 13:20) Vomitinglidocaine Adverse Reaction (Severe, Verified 11/20/21 13:20) OtherPenicillins Adverse Reaction (Severe, Verified 11/20/21 13:20) Vomitingpotassium clavulanate [From Augmentin] Adverse Reaction (Severe, Verified 11/20/21 13:20) Vomiting Medications See EMR [facility] Medical History? 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 H/O coronary artery bypass surgery (01/15/11) History of appendectomy History of cholecystectomy History of coronary artery stent placement (06/17/11) History of electrophysiologic study (01/21/11) History of hysterectomy History of mitral valve repair (01/15/11) History of tonsillectomy nerve ablation for pain management Presence of permanent cardiac pacemaker (01/21/11) Family History? Father?? ,? age 86 CAD (coronary artery disease)Sister Asthma Social History? Smoking Status:? Never smoker alcohol intake:? never substance use type:? does not use caffeine:? Yes Type: coffee Number of servings: 2 what type of physical activity do you participate in:? walking and weight training frequency:? 5-6 times per week ROS Const Const: Positive for fatigue; Negative for weakness, headache(s), frequent falls, excessive sweating, weight gain or weight loss Eyes Eyes: Negative for blind spots, loss of peripheral vision, transient loss of vision, blurry vision, change in vision or double vision ENT ENT: Negative for headache(s), dizziness, tinnitus, Nosebleed/epistaxis or balance problems Cardio Chest Pain: No Palpitations: No Edema: None Muscle aches with walking: None Resp Respiratory: Positive for SOB with activity; Negative for SOB at rest, SOB orthopnea\SOB lying down or Cough GI GI: Negative nausea, vomiting, heartburn, bloating, vomiting blood/hematemesis, bright, red blood in stools or black,tarry stools : Negative for hematuria Musc Musc: Negative for muscle aches/ myalgia, muscle weakness, joint pain or balance problems Skin Skin: Negative rash or wounds Neuro Neuro: Negative for dizziness, lightheadedness, near syncope, syncope, orthostatic symptoms, frequent falls, headache(s), weakness, confusion, memory loss, restless legs, blurry vision or double vision Billy Hematologic/Lymphatic: Negative for easy bleeding or easy bruising Endo Endo: Positive for fatigue; Negative for cold intolerance, heat intolerance or excessive sweating Psych Psych: Negative for anxiety or depression Allergy Allergy/Immunology: Negative for rash Cardiology Exam Const Appearance: cooperative, healthy appearing, comfortable, no acute distress and well developed Orientation: alert, awake and oriented x3 Head Head: normal to inspection and laceration (right forehead- healing stitches) Ears: hearing grossly normal bilaterally Nose: external nose normal Face and Sinus: face symmetric Mouth: oral mucosae normal, lip normal and moist mucous membranes Eyes General: appearance normal, both eyes and all related structures Eyelids: eyelids normal Conjunctivae: conjunctivae normal Pupils: PERRL EOM: EOM intact bilaterally Neck Neck: normal visual inspection and trachea midline; Negative no JVD Carotids: Negative bruit Chest Chest inspection: normal inspection of the chest Auscultation: Bilateral: Clear to Auscultation Cardio Palpation: normal PMI Rate: regular rate Rhythm: regular rhythm Heart sounds: S1 normal, S2 normal and murmur; Negative rub or gallop Murmur: Grade 1/6, early systolic and mid systolic GI GI: soft, no hepatosplenomegaly and bowel sounds present Neuro General: patient alert, patient awake, patient oriented x3 and CN's II-XI intact bilaterally Extremities Pulses: Normal: Right Posterior Tibial Pulse, Left Posterior Tibial Pulse, Right Radial Pulse and Left Radial Pulse Lower Extremity Edema: None: Bilateral Psych Psychological: normal affect Supplemental Info Supplemental Information Echocardiogram 02/2021: The estimated ejection fraction is 55 %. Unable to assess diastolic dysfunction. The left atrium is severely enlarged. Status post mitral valve repair with annuloplasty ring. Mild-Moderate (1-2+) mitral valve insufficiency. Labs: ?? ? LDL Cholesterol 52 mg/dL (0-130) ?? ? HDL Cholesterol 45 mg/dL (40-) ?? ? Triglycerides 194 mg/dL (-199) A ?? ? VLDL Cholesterol 39 mg/dL (5-40) Diagnostics: ?? ? Electrocardiogram ? Pacemaker Check ? Chest X-Ray ? Pulmonary: ?? ? No Data to Display Assessment and Plan Assessment and Plan (1) Atherosclerosis of coronary artery bypass graft without angina pectoris: ?Status:?Chronic ?Plan: Pt does not have any angina. ? Patient will continue with aspirin, furosemide, metoprolol, simvastatin. (2) Obstructive hypertrophic cardiomyopathy: ?Status:?Chronic ?Comment: septal myomectomy 01/15/2011 ?Plan: Reviewed echo from 2020, BNP is similar to where it had been previously.? Her SOB is improved with Lasix adjustment. (3) History of mitral valve repair: ?Status:?Resolved ?Plan: Stable, will continue to monitor by history, exam and echocardiograms as deemed appropriate.? Patient will continue with antibiotic prophylaxis per AHA guidelines. (4) Presence of permanent cardiac pacemaker: ?Status:?Chronic ?Plan: As device has reached NEGRITO, she will proceed with generator change. (5) Essential (primary) hypertension: ?Status:?Chronic ?Plan: We will continue to monitor. (6) HLD (hyperlipidemia): ?Status:?Chronic ?Qualifiers: ?Hyperlipidemia type:?pure hypercholesterolemia? Qualified Code(s):? E78.00 - Pure hypercholesterolemia, unspecified; E78.0 - Pure hypercholesterolemia ?Plan: Pt will continue with moderate intensity statin, this is managed by her PCP (7) Atrial flutter: ?Status:?Acute ?Plan: She did have short episodes of atrial flutter, this did not correlate with fall.? She is not on anticoagulation but does have significant bruising and did recently fall requiring stitches.? For now will continue with ASA. May consider changing to a factor Xa in the future.
--- NOTE | 2021-12-21 12:55 | CL.IE_ITS ---
Patient: BEVERLY GARCIA Study Date: 12/21/2021 Performing: Theo Irby MD : 1935 Age: 86 Gender: female PROCEDURES PERFORMED LP07-([id number])BATTERY REMOVAL+REPLACEMENT PACER-DUAL LEAD INDICATIONS Atrioventricular (AV) block PROCEDURE DETAILS The patient was brought to the Catheterization Lab in the postabsorptive nonsedated state. Informed consent was obtained prior to the procedure. Local anesthetic was given subcutaneously to the left subclavian region with Nesacaine 2%. Incision was made to the left upper chest. PPM generator was removed. PPM generator was attached to the lead(s) and inserted into the pocket. PPM generator was then interrogated by the freelance programmer/app developer. Device pocket was irrigated with antibiotic. Subcutaneous closure was completed with 3-0 Vicryl. Skin closure was completed with 4-0 Vicryl. Steri-strips applied to left subclavicular incision. Instrument, sponge, and needle counts were noted to be normal. The patient tolerated the procedure well. Estimated Blood Loss: 10 ml's IMPLANTED / EX-PLANTED DEVICES IMPLANTED DEVICE(S): PPM Generator - [facility]: [employer], Model # [id number] , Serial # [id number] DEVICE PARAMETERS DEVICE PARAMETERS: Mode - DDDR lower rate - 60 upper rate - 120 rate response off Mode- DDDR Lower rate- 60 Upper rate- 120 CONCLUSIONS / RECOMMENDATIONS Device Conclusions: Successful implantation of a dual chamber pacemaker battery change and replacement Device Recommendations: Follow up with Primary Care Physician PROCEDURE MEDICATIONS Fentanyl 50 mcg IV Versed 1 mg IV Oxygen: 2 L/min via nasal cannula Antibiotic given in appropriate timeframe. Clindamycin 900 mg IV 12/21/2021 11:53:52 Signed By Theo Irby MD On 12/21/2021 12:55:04 Theo Irby MD
== END 2021-12-21 14:07 | disposition home or self-care (01) ==
LOC: CLSP 10:22
PROVIDERS: Physician Assistant Medical; PCP Internal Medicine; Visit Provider Internal Medicine Cardiovascular Disease
DX: Z45.010 Encounter for checking and testing of cardiac pacemaker pulse generator [battery] (principal); I11.0 Hypertensive heart disease with heart failure; I50.32 Chronic diastolic (congestive) heart failure; I42.1 Obstructive hypertrophic cardiomyopathy; E78.5 Hyperlipidemia, unspecified; R06.02 Shortness of breath; I25.10 Atherosclerotic heart disease of native coronary artery without angina pectoris; Z79.82 Long term (current) use of aspirin; Z95.1 Presence of aortocoronary bypass graft; Z95.5 Presence of coronary angioplasty implant and graft; Z79.899 Other long term (current) drug therapy
CPT/HCPCS: 33228; 36415; 80048; 81001; 83880; 85027; 85610; 99152; 99153; J7040; J7050

== ENCOUNTER 2022-02-06 14:33 | Outpatient (CLI) | payer MEDICARE, OTHER, SELFPAY ==
[2022-02-06 14:57] VITALS: BP 125/56; PULSE 65; RESP 18; TEMP 36.2; O2SAT 100; BMI 25.8
[2022-02-06] MEDS: 0.9% Saline Lock 10 ML Syringe IV ×3 (15:02→15:07)
[2022-02-06] MEDS: BEBTELOVIMAB 175 MG/2 ML VIAL IV (15:03)
[2022-02-06 15:34] VITALS: BP 122/58; PULSE 60; RESP 18; TEMP 36.8; O2SAT 98
[2022-02-06 16:00] VITALS: BP 126/54; PULSE 60; RESP 18; TEMP 36.4; O2SAT 97
== END 2022-02-06 16:03 | disposition home or self-care (01) ==
LOC: MS3OUT 14:34 → MS2 14:35
PROVIDERS: PCP Internal Medicine; Referring Provider Nurse Practitioner Acute Care; Visit Provider Nurse Practitioner Acute Care
DX: U07.1 COVID-19 (principal)
CPT/HCPCS: M0222; Q0222; A4216

== ENCOUNTER 2022-02-26 18:36 | Emergency (ER) | payer MEDICARE, OTHER, SELFPAY ==
[2022-02-26 18:37] VITALS: BP 175/71; PULSE 90; RESP 15; TEMP 36.5; O2SAT 98; BMI 26.6
--- NOTE | 2022-02-26 19:33 | EDS_ITS ---
HPI History of Present Illness Chief Complaint: Abn Labs Narrative Narrative: 86-year-old female past medical history of CHF presents with shortness of breath that she has had for the last few days. She was seen by her primary care physician, Dr. Dang, who performed laboratory work today and an EKG. Patient was told that she had an elevated D-dimer and that she needed to come to the emergency department. She denies any leg swelling. No chest pain with this. No fevers or chills. She has an occasional cough that is nonproductive. She presents mainly because she was told she had an elevated D-dimer. [facility] Medical History Abnormal urine finding Atherosclerosis of coronary artery bypass graft without angina pectoris Atherosclerotic heart disease of [place] coronary artery without angina pectoris Bronchitis Chronic diastolic (congestive) heart failure Chronic lymphoid leukemia Complete heart block COVID-19 DM (diabetes mellitus), type 2 with peripheral vascular complications Essential (primary) hypertension Gout HLD (hyperlipidemia) Hypogammaglobulinemia, acquired Left bundle branch block (LBBB) Macular degeneration Mitral valve annular calcification Nonrheumatic mitral (valve) insufficiency Nonsustained ventricular tachycardia Obstructive hypertrophic cardiomyopathy Other specified transient cerebral ischemias Peripheral edema Proteinuria Skin tear of left upper extremity Uncontrolled hypertension URI (upper respiratory infection) Urinary frequency Home Medications aspirin 81 mg chewable tablet 81 mg PO DAILY@0800 02/04/13 [History Last Taken Unknown] metoprolol tartrate 50 mg tablet 50 mg PO BID 02/04/13 [History Last Taken Unknown] cholecalciferol (vitamin D3) 125 mcg (5,000 unit) capsule 1 tab PO DAILY 05/18/15 [History Last Taken Unknown] duloxetine 60 mg capsule,delayed release 60 mg PO BID 04/11/16 [History Last Taken Unknown] gabapentin 300 mg capsule 300 mg PO BID 10/28/16 [History Last Taken 12/21/21] simvastatin 40 mg tablet 40 mg PO QHS 10/28/16 [History Last Taken Unknown] arginine (L-arginine) 500 mg tablet 3,000 mg PO BID 10/29/17 [History Last Taken Unknown] cyanocobalamin (vitamin B-12) 500 mcg tablet 1,000 mcg PO QWEEK 11/26/17 [History Last Taken Unknown] levothyroxine 50 mcg tablet 50 mcg PO DAILY 12/24/17 [History Last Taken 12/21/21] vit C 250 mg-vit E 90 mg-zinc 40 mg-copper 1 [id number]-[id number] capsule (PreserVision AREDS-2) 1 tab PO BID 01/24/21 [History Last Taken Unknown] acyclovir 800 mg tablet 800 mg PO BID 05/16/21 [History Last Taken Unknown] furosemide 20 mg tablet (Lasix) 40 mg PO BID #180 tabs 12/03/21 [Rx Last Taken Unknown] Allergy/AdvReac Type Severity Reaction Status Date / Time amoxicillin trihydrate AdvReac Severe Vomiting Verified 02/26/22 18:37 [From Augmentin] lidocaine AdvReac Severe Other Verified 02/26/22 18:37 Penicillins AdvReac Severe Vomiting Verified 02/26/22 18:37 potassium clavulanate AdvReac Severe Vomiting Verified 02/26/22 18:37 [From Augmentin] Family History Father , age 86 CAD (coronary artery disease) Sister Asthma Surgical History H/O coronary artery bypass surgery (01/15/11) History of appendectomy History of cholecystectomy History of coronary artery stent placement (06/17/11) History of electrophysiologic study (01/21/11) History of hysterectomy History of mitral valve repair (01/15/11) History of tonsillectomy nerve ablation for pain management Presence of permanent cardiac pacemaker (12/21/21) Social History Smoking Status: Never smoker alcohol intake: never substance use type: does not use caffeine: Yes Type: coffee Number of servings: 2 what type of physical activity do you participate in: walking and weight training frequency: 5-6 times per week ROS ROS ED ROS Narrative Constitutional: No fever, no chills. HEENT: No sore throat. No neck pain. No loss of vision. No rhinorrhea. Cardiovascular: No chest pain. No palpitations. No pedal edema. Respiratory: Occasional cough, positive shortness of breath. Mild dyspnea on exertion. Abdominal: No abdominal pain. No nausea. No vomiting. Genitourinary: No dysuria. No hematuria. Musculoskeletal: No myalgias. No arthralgias. Neurologic: No headaches. No dizziness. No lightheadedness. Skin: No rash. No change in color. Psychiatric: No depression. No anxiety. EXAM Physical Exam Narrative Exam Narrative: Afebrile. Vital signs noted. HEENT: Normocephalic. Atraumatic. PERRL, EOMI. Neck soft and supple. No point tenderness or step off. Cardiovascular: Regular rate and rhythm. No murmurs, rubs, or gallops appreciated. Respiratory: No tachypnea. Occasional bibasilar rales left greater than right. Gastrointestinal: Abdomen soft, nontender, with normoactive bowel sounds. No rebound or guarding. Neurological: Awake. Alert. Nonfocal, nonlateralizing. Skin: No rash. Normal color. No pallor. Musculoskeletal: No pedal edema. Full range of motion extremities. Const Vital Signs: 02/26/22 18:37 02/26/22 19:08 Temperature 97.7 F L Temperature Source Temporal Pulse Rate 90 Respiratory Rate 15 Respiratory Effort Normal Non-Labored Respiratory Pattern Normal Blood Pressure 175/71 H Blood Pressure Mean 105 Pulse Ox 98 Oxygen Delivery Method Room Air MDM MDM MDM Narrative Medical decision making narrative: I reviewed her D-dimer from today. This was not age-adjusted. Her age adjustment upper limit is 0.86. Regardless, patient is unsure why she is so short of breath and would like to proceed with further work-up including CBC, BMP, BNP, and CTA of the lungs to rule out any pneumonia or blood clot. CBC is grossly normal with a normal white count of 5.2, hemoglobin normal at 13.0, hematocrit 40.9. Platelet count normal at 157. Electrolyte panel shows creatinine elevated at 1.22 with a BUN of 29 but she has chronic kidney disease. Glucose appropriately elevated at 171 with a normal anion gap of 5. BNP is only slightly elevated at 128.2. CTA of the chest was performed which shows no evidence of pulmonary embolism, no dissection or aneurysm, no acute pulmonary disease. She had told the tech that she has an allergy to IV contrast, but that is not documented, and she states that her reaction is dizziness. Additionally, she had already received IV contrast in 2019. At this point in time, I feel she can be discharged safely home with follow-up. Return instructions to the emergency department were reviewed. Disposition is discharged home in stable condition. Lab Data Attestation: I reviewed the patient's lab results. Labs: Laboratory Results - last 24 hr 02/26/22 02/26/22 02/26/22 19:51 19:51 19:51 WBC 5.2 RBC 4.36 Hgb 13.0 Hct 40.9 MCV 93.8 MCH 29.8 MCHC 31.8 L RDW Std Deviation 48.1 H RDW Coeff of Patrice 14.2 Plt Count 157 MPV 10.0 Immature Gran % (Auto) 0.400 Neut % (Auto) 63.3 Lymph % (Auto) 23.6 [place] % (Auto) 11.0 H Eos % (Auto) 1.7 Baso % (Auto) 0.0 Absolute Neuts (auto) 3.3 Absolute Lymphs (auto) 1.22 Nucleated RBC % 0 Sodium 141 Potassium 3.9 Chloride 104 Carbon Dioxide 32.0 Anion Gap 5 BUN 29 H Creatinine 1.22 H Estim Creat Clear Calc 32.19 Est GFR (MDRD) Af Amer 54 L Est GFR (MDRD) Non-Af 44 L BUN/Creatinine Ratio 23.8 H Glucose 171 H Calcium 9.1 B-Natriuretic Peptide 128.2 H Radiography Diagnostic Testing: Clinical Impression(s) from Imaging Studies Chest CTA 02/26/22 19:35 IMPRESSION: 1. No evidence of pulmonary embolus. 2. No aortic dissection or aneurysm. 3. No acute pulmonary disease. 4. Evidence of left ventricular hypertrophy with mitral valve replacement cardiac pacemaker and CABG procedure. Electronically Signed: Hang Leonard DO at 21:04 EST Reading Location ID and State: [address] [place] [address] Tel [phone], Service support , Discharge Plan Triage Chief Complaint: Abn Labs ED Provider: Sanchez Velázquez Dx/Rx/DC Orders Clinical Impression: SOB (shortness of breath), Elevated d-dimer Instructions: D-Dimer, ED Dyspnea Prescriptions: No Action PreserVision AREDS-2 250-90-40-1 mg capsule 1 tab PO BID acyclovir 800 mg tablet 800 mg PO BID furosemide [Lasix] 20 mg tablet 40 mg PO BID Qty: 180 3RF metoprolol tartrate 50 MG tablet 50 mg PO BID aspirin 81 MG tablet,chewable 81 mg PO DAILY@0800 cholecalciferol (vitamin D3) 5,000 UNIT capsule 1 tab PO DAILY duloxetine 60 MG capsule,delayed release(DR/EC) 60 mg PO BID gabapentin 300 MG capsule 300 mg PO BID simvastatin 40 MG tablet 40 mg PO QHS arginine (L-arginine) 500 MG tablet 3,000 mg PO BID cyanocobalamin (vitamin B-12) 500 MCG tablet 1,000 mcg PO QWEEK levothyroxine 50 MCG tablet 50 mcg PO DAILY Primary Care Provider: Susie Dang Referrals: Susie Dang DO [Primary Care Provider] - 1-2 Days if not improving Activity Restrictions/Additional Instructions: Your age-adjusted D-dimer is normal. Disposition Disposition: Home, Self Care
--- NOTE | 2022-02-26 19:35 | CT_ITS ---
STUDY: CTA CHEST REASON FOR EXAM: Female, 86 years old. Elevated d-dimer. Shortness of breath with nonproductive cough. History of CHF 8 fluid or hypertension. History of cardiac stents, CABG procedure, mitral valve replacement and septal myomectomy. RADIATION DOSAGE (If Supplied By Facility): CTDIvol = ( 10.99 ) mGy, DLP = ( 322.68 ) mGycm TECHNIQUE: The examination was performed with the intravenous administration of IV 100mL Isovue-370. Post-processing of the angiographic images was performed, with multiplanar reformation and 3D reconstruction. Individualized dose optimization techniques were used for this CT. COMPARISON: Chest, November 20, 2021. CT of the chest, August 15, 2016. FINDINGS: Normal enhancement of the main pulmonary artery and right and left pulmonary arteries. Normal enhancement of the bilateral peripheral pulmonary arteries. There is no demonstrated pulmonary embolism. Atherosclerotic tortuosity of the thoracic aorta without aneurysm. There is no demonstrated aortic dissection. There is a prominent left atrium. There is thickening and irregularity of the interventricular septum with left ventricular hypertrophy.. Evidence of mitral valve replacement. Pacer leads are seen in the right heart. Status post CABG procedure. Normal mediastinum. Normal hilar regions. Normal visualized trachea and bronchi. The lungs are well expanded. Normal pulmonary parenchyma. Normal pleura. Pacer generator is seen in the soft tissues of the left upper chest wall. There is evidence of median sternotomy. Normal osseous structures. Mild splenomegaly with multiple calcified granulomata. The upper abdomen is otherwise grossly normal. CT/CTA Chest W/WO Contrast IMPRESSION: 1. No evidence of pulmonary embolus. 2. No aortic dissection or aneurysm. 3. No acute pulmonary disease. 4. Evidence of left ventricular hypertrophy with mitral valve replacement cardiac pacemaker and CABG procedure. Electronically Signed: Hang Leonard DO at 21:04 EST ,
[2022-02-26 19:57] LABS: Absolute Lymphocyte Count 1.22 X10^3/uL (0.83-4.51); Absolute Neutrophil Count 3.3 X10^3/uL (2.0-7.7); Eosinophil# 0.09 X10^3/uL; Eosinophils% 1.7 % (0-5); Hematocrit 40.9 % (37-47); Lymphocyte # 1.22 X10^3/ul (0.83-4.51); Lymphocyte % 23.6 % (19-41); Mean Corp Hgb Conc 31.8 g/dL (32-36); Mean Corpuscular Hgb 29.8 pg (27.0-32.0); Mean Corpuscular Volume 93.8 fL (81-99); Monocyte# 0.57 X10^3/uL; NRBC Flagged by Analyzer 0 % (0-5); Neutrophil # 3.27 X10^3/uL (2.7-7.7); Neutrophil % 63.3 % (47-70); Platelet Count 157 K/mm3 (150-450); RBC Distribution Width CV 14.2 % (11.6-14.6); RBC Distribution Width SD 48.1 fl (35.1-43.9); Red Blood Count 4.36 M/mm3 (4.2-5.4); White Blood Count 5.2 K/mm3 (4.4-11.0)
[2022-02-26 20:16] LABS: Anion Gap 5 (5-15); BUN 29 mg/dL (7-18); BUN/Creat Ratio 23.8 RATIO (10-20); Calcium,Total 9.1 mg/dL (8.5-10.1); Chloride 104 mmol/L (98-107); Creatinine, Serum 1.22 mg/dL (0.55-1.02); EST Glomerular Filtration Rate 44 mL/min (>60); Est Glom Filt Rate - Afr Amer 54 mL/min (>60); Estimated Creatinine Clearance 32.19 ml/min; Glucose 171 mg/dL (74-106); Potassium 3.9 mmol/L (3.5-5.1); Sodium Level 141 mmol/L (136-145)
[2022-02-26 20:18] LABS: BNP,B-Type NATRIURETIC PEPTIDE 128.2 pg/mL (0-100)
[2022-02-26 22:01] VITALS: BP 150/96; PULSE 77; RESP 16; O2SAT 98
== END 2022-02-26 22:03 | disposition home or self-care (01) ==
PROVIDERS: Emergency Provider Emergency Medicine; PCP Internal Medicine; Visit Provider Emergency Medicine
DX: R06.02 Shortness of breath (principal); I13.0 Hypertensive heart and chronic kidney disease with heart failure and stage 1 through stage 4 chronic kidney disease, or unspecified chronic kidney disease; I50.32 Chronic diastolic (congestive) heart failure; I42.1 Obstructive hypertrophic cardiomyopathy; R79.89 Other specified abnormal findings of blood chemistry; N18.9 Chronic kidney disease, unspecified; I25.10 Atherosclerotic heart disease of native coronary artery without angina pectoris; E78.5 Hyperlipidemia, unspecified; Z86.16 Personal history of COVID-19; Z95.1 Presence of aortocoronary bypass graft; Z95.5 Presence of coronary angioplasty implant and graft; Z95.0 Presence of cardiac pacemaker; Z79.82 Long term (current) use of aspirin; Z79.899 Other long term (current) drug therapy
CPT/HCPCS: 71275; 80048; 83880; 84484; 85025; 85379; 99284; Q9967; A4216

== ENCOUNTER → 2022-02-26 | Outpatient (CLI) | payer MEDICARE, OTHER, SELFPAY ==
[2022-02-26 16:05] LABS: Troponin-I HS 42 pg/mL (3.0-54.0)
[2022-02-26 18:02] LABS: D-Dimer Quantitative (DVT/PE) 0.72 FEU/ug/m (0.27-0.49)
== END | disposition home or self-care (01) ==
LOC: LABSPEC 15:34
PROVIDERS: PCP Internal Medicine; Visit Provider Internal Medicine
DX: R06.02 Shortness of breath (principal)
CPT/HCPCS: 84484; 85379

== ENCOUNTER → 2022-03-13 | Outpatient (CLI) | payer MEDICARE, OTHER, SELFPAY ==
--- NOTE | 2022-03-13 12:58 | CDU_ITS ---
Reason For Study: Bilateral arteriosclerosis Rt. Velocities/BP Lt. Velocities/BP Prox CCA 76.8/9.7 cm/sec. Prox CCA 83.9/13.5 cm/sec. Mid CCA 74/12.6 cm/sec. Mid CCA 64.1/11.3 cm/sec. Dist CCA 54.1/10.7 cm/sec. Dist CCA 53.2/8.8 cm/sec. Prox ICA 44.7/11.6 cm/sec. Prox ICA 54.8/11.1 cm/sec. Mid ICA 55.1/13.5 cm/sec. Mid ICA 57.7/15 cm/sec. Dist ICA 74.5/14.5 cm/sec. Dist ICA 76.7/15.9 cm/sec. Rt. ICA/CCA = 1.01. Lt. ICA/CCA = 1.20. Prox ECA 66.4/6.9 cm/sec. Prox ECA 80.6/5.8 cm/sec. Rt. Vert. 44.3/8 cm/sec. Lt. Vert. 59.3/13.9 cm/sec. Right Extracranial There is homogeneous, smooth atherosclerotic plaque noted in the right common carotid artery. There is heterogeneous, irregular atherosclerotic plaque noted in the right internal carotid artery. There is heterogeneous, irregular atherosclerotic plaque noted in the right external carotid artery. Antegrade flow is noted in the right vertebral artery. Left Extracranial There is homogeneous, smooth atherosclerotic plaque noted in the left common carotid artery. There is heterogeneous, irregular atherosclerotic plaque noted in the left internal carotid artery. There is heterogeneous, irregular atherosclerotic plaque noted in the left external carotid artery. Antegrade flow is noted in the left vertebral artery. Procedure Carotid Duplex [id number]. This is a Carotid Duplex examination using B-mode, color flow and specral Doppler. Exam performed in department. VL/Carotid Duplex Ultrasound Interpretation Summary Mild (<50%) stenosis right extracranial internal carotid. Mild (<50%) stenosis left extracranial internal carotid. Flow within the vertebral arteries is antegrade bilaterally. Ordering Physician: Susie Dang Referring Physician: Susie Dang Performed By: Brooke Torres RVT
== END | disposition home or self-care (01) ==
LOC: CVS 12:52
PROVIDERS: PCP Internal Medicine; Referring Provider Internal Medicine; Visit Provider Internal Medicine
DX: I65.23 Occlusion and stenosis of bilateral carotid arteries (principal)
CPT/HCPCS: 93880

== ENCOUNTER → 2022-05-08 | Outpatient (CLI) | payer MEDICARE, OTHER, SELFPAY ==
--- NOTE | 2022-05-08 12:50 | VDLE_ITS ---
Reason For Study: Swelling RIGHT LEFT GSV is normal. CFV is compressible, spontaneous, phasic, CFV is compressible, spontaneous, phasic, competent, and demonstrates normal competent and demonstrates normal augmentation. augmentation. FV is compressible, spontaneous, phasic, competent and demonstrates normal augmentation. POP V is compressible, spontaneous, phasic, competent and demonstrates normal augmentation. T/P Trunk is compressible. PTV is compressible. RT PerV is compressible. Procedure This is a venous duplex using B-mode, color flow and spectral Doppler. Exam performed in department. A preliminary report was called and/or faxed to [facility]. VL/Venous Duplex US, Unilateral Interpretation Summary Deep veins of the right lower extremity are patent and compressible segmentally . There is no evidence of right lower extremity deep vein thrombosis. The right great [place] us vein appears patent and compressible segmentally. Ordering Physician: Susie Dang Referring Physician: Susie Dang Performed By: Brooke Torres RVT
--- NOTE | 2022-05-08 13:52 | RAD_ITS ---
STUDY: X-RAY - RIGHT ANKLE REASON FOR EXAM: Female, 86 years old. pt having right ankle pain and swelling -- pt having right ankle pain and swelling TECHNIQUE: 3 view(s) of the ankle. COMPARISON: None. FINDINGS: Normal visualized distal tibia and fibula. Normal medial and lateral malleoli. Normal tibiotalar articulation and ankle mortise. Calcaneal spurs. The visualized subtalar, talonavicular, calcaneocuboid and tarsal articulations are normal. Soft tissue swelling. RAD/Ankle min 3 Views IMPRESSION: Soft tissue swelling. Calcaneal spurs. Electronically Signed: Denis Casillas MD at 14:28 EST ,
[2022-05-08 14:59] LABS: Erythrocyte Sedimentation Rate 11 mm/hr (0-30)
[2022-05-08 15:01] LABS: Absolute Lymphocyte Count 1.46 X10^3/uL (0.83-4.51); Absolute Neutrophil Count 4.5 X10^3/uL (2.0-7.7); Basophil# 0.02 X10^3/uL; Basophil% 0.3 % (0-1); Eosinophil# 0.06 X10^3/uL; Eosinophils% 0.9 % (0-5); Hematocrit 43.2 % (37-47); Hemoglobin 13.6 g/dL (12.0-15.0); Lymphocyte # 1.46 X10^3/ul (0.83-4.51); Lymphocyte % 22.1 % (19-41); Mean Corp Hgb Conc 31.5 g/dL (32-36); Mean Corpuscular Hgb 29.5 pg (27.0-32.0); Mean Corpuscular Volume 93.7 fL (81-99); Mean Platelet Vol. 10.4 fl (6.2-12.0); Monocyte# 0.57 X10^3/uL; Monocyte% 8.6 % (0-10); NRBC Flagged by Analyzer 0 % (0-5); Neutrophil # 4.47 X10^3/uL (2.7-7.7); Neutrophil % 67.8 % (47-70); Platelet Count 276 K/mm3 (150-450); RBC Distribution Width CV 14.5 % (11.6-14.6); RBC Distribution Width SD 49.6 fl (35.1-43.9); Red Blood Count 4.61 M/mm3 (4.2-5.4); White Blood Count 6.6 K/mm3 (4.4-11.0)
[2022-05-08 15:11] LABS: ALB/GLOB Ratio 1.2 RATIO (0.9-2.4); AST(SGOT) 13 U/L (15-37); Alanine Aminotransfer ALT/SGPT 17 U/L (13-56); Albumin, Serum 3.9 g/dL (3.2-5.0); Alkaline Phosphatase 55 U/L (45-117); Anion Gap 9 (5-15); BUN 26 mg/dL (7-18); BUN/Creat Ratio 18.7 RATIO (10-20); Calcium,Total 9.3 mg/dL (8.5-10.1); Chloride 106 mmol/L (98-107); Creatinine, Serum 1.39 mg/dL (0.55-1.02); EST Glomerular Filtration Rate 38 mL/min (>60); Est Glom Filt Rate - Afr Amer 46 mL/min (>60); Globulin 3.3 g/dL (2.2-4.2); Glucose 143 mg/dL (74-106); LDH 235 U/L (84-246); Protein, Total 7.2 g/dL (6.4-8.2); Sodium Level 141 mmol/L (136-145)
[2022-05-11 14:16] LABS: Immunoglobulin G 576 mg/dL (586-1602)
== END | disposition home or self-care (01) ==
PROVIDERS: Internal Medicine Medical Oncology; PCP Internal Medicine; Referring Provider Internal Medicine; Visit Provider Internal Medicine
DX: M79.89 Other specified soft tissue disorders (principal); D80.1 Nonfamilial hypogammaglobulinemia; M25.571 Pain in right ankle and joints of right foot
CPT/HCPCS: 36415; 73610; 80053; 82784; 83615; 85025; 85652; 86140; 93971

== ENCOUNTER 2022-06-06 09:30 | Outpatient (RCR) | payer MEDICARE, OTHER, SELFPAY ==
[2022-05-30 08:14] VITALS: BP 147/67; PULSE 72; TEMP 36.2; BMI 26.3
--- NOTE | 2022-05-30 08:29 | HP.PCM_ITS ---
History of Present Illness Date of Service: 05/30/22 Chief Complaint: Right lower extremity wound History of Wound: Patient is an 86-year-old female with history of atherosclerotic disease, peripheral vascular disease, Raynaud's, hyperlipidemia who presented to Dr. Dang office with new wound to the posterior aspect of her right lower extremity secondary to shoe gear rubbing against the back of her leg. States that she was placed on an antibiotic and had been applying antibiotic ointment to the wound. She was seen by me in office last week for her debridement of nails. She stated that she would be seen in the wound care center next week and thus I have not started treatment of the right lower extremity wound performing debridement of the wound in office. She states wound has been present for only a few weeks without improvement prior to seeking care. [facility] Medical History Abnormal urine finding Atherosclerosis of coronary artery bypass graft without angina pectoris Atherosclerotic heart disease of [place] coronary artery without angina pectoris Bronchitis Chronic diastolic (congestive) heart failure Chronic lymphoid leukemia Complete heart block COVID-19 DM (diabetes mellitus), type 2 with peripheral vascular complications Essential (primary) hypertension Gout HLD (hyperlipidemia) Hypogammaglobulinemia, acquired Left bundle branch block (LBBB) Macular degeneration Mitral valve annular calcification Nonrheumatic mitral (valve) insufficiency Nonsustained ventricular tachycardia Obstructive hypertrophic cardiomyopathy Other specified transient cerebral ischemias Peripheral edema Proteinuria Skin tear of left upper extremity Uncontrolled hypertension URI (upper respiratory infection) Urinary frequency Home Medications aspirin 81 mg chewable tablet 81 mg PO DAILY@0800 02/04/13 [History Last Taken Unknown] metoprolol tartrate 50 mg tablet 50 mg PO BID 02/04/13 [History Last Taken Unknown] cholecalciferol (vitamin D3) 125 mcg (5,000 unit) capsule 1 tab PO DAILY 05/18/15 [History Last Taken Unknown] duloxetine 60 mg capsule,delayed release 60 mg PO BID 04/11/16 [History Last Taken Unknown] gabapentin 300 mg capsule 300 mg PO BID 10/28/16 [History Last Taken 12/21/21] simvastatin 40 mg tablet 40 mg PO QHS 10/28/16 [History Last Taken Unknown] arginine (L-arginine) 500 mg tablet 3,000 mg PO BID 10/29/17 [History Last Taken Unknown] cyanocobalamin (vitamin B-12) 500 mcg tablet 1,000 mcg PO QWEEK 11/26/17 [History Last Taken Unknown] levothyroxine 50 mcg tablet 50 mcg PO DAILY 12/24/17 [History Last Taken 12/21/21] vit C 250 mg-vit E 90 mg-zinc 40 mg-copper 1 [id number] capsule (PreserVision AREDS-2) 1 tab PO BID 01/24/21 [History Last Taken Unknown] acyclovir 800 mg tablet 800 mg PO BID 05/16/21 [History Last Taken Unknown] furosemide 20 mg tablet (Lasix) 40 mg PO BID #180 tabs 12/03/21 [Rx Last Taken Unknown] Allergy/AdvReac Type Severity Reaction Status Date / Time amoxicillin trihydrate AdvReac Severe Vomiting Verified 04/17/22 09:19 [From Augmentin] lidocaine AdvReac Severe Other Verified 04/17/22 09:19 Penicillins AdvReac Severe Vomiting Verified 04/17/22 09:19 potassium clavulanate AdvReac Severe Vomiting Verified 04/17/22 09:19 [From Augmentin] Family History Father , age 86 CAD (coronary artery disease) Sister Asthma Surgical History H/O coronary artery bypass surgery (01/15/11) History of appendectomy History of cholecystectomy History of coronary artery stent placement (06/17/11) History of electrophysiologic study (01/21/11) History of hysterectomy History of mitral valve repair (01/15/11) History of tonsillectomy nerve ablation for pain management Presence of permanent cardiac pacemaker (12/21/21) Social History Smoking Status: Never smoker alcohol intake: never substance use type: does not use caffeine: Yes Type: coffee Number of servings: 2 what type of physical activity do you participate in: walking and weight training frequency: 5-6 times per week ROS Constitutional Constitutional: Denies chills, fatigue or fever(s) Eyes Eyes: Denies blurry vision, double vision or dry eyes ENT HEENT: Denies dysphagia, nasal congestion or sore throat Cardiovascular Cardiovascular: Denies chest pain, claudication or fatigue Respiratory/Chest Respiratory/Chest: Denies cough, pain on inspiration or productive cough Gastrointestinal Gastrointestinal: Denies abdominal pain, constipation, diarrhea, nausea or vomiting Genitourinary Genitourinary: Denies dysuria, hematuria, urinary frequency or urinary urgency Musculoskeletal Musculoskeletal: Denies joint pain, joint stiffness or joint swelling Integumentary Integumentary: Denies lesions, pruritus or rash Neurologic Neurologic: Denies confusion, dizziness, numbness or seizures Endocrine Endocrinology: Denies cold intolerance, heat intolerance, polydipsia or polyuria Vital Signs Vital Signs Vital Signs: 05/30/22 08:14 Temperature 97.2 F L Temperature Source Temporal Pulse Rate 72 Blood Pressure 147/67 H Blood Pressure Mean 93 Blood Pressure Source Monitor Weight Weight: 76.204 kg Body Mass Index (BMI) 26.3 Physical Exam Const alert, oriented x3 and no apparent distress General Appearance: cooperative HEENT normocephalic Eyes General Eye: normal appearance of both eyes Neck General: normal visual inspection Lymph Lymphatic: no lymphadenopathy noted and no lymphedema noted Resp normal respiratory effort Cardio regular rate and regular rhythm Extremity normal capillary refill, no joint enlargement and no calf tenderness Extremity Narrative: DP and PT pulses weakly palpable. CFT < 5 seconds and adequate to the digits. There is bilateral lower extremity edema +2 pitting with purplish discoloration of the entire lower extremity secondary to her peripheral vascular disease and Raynaud's. There is a wound noted to the posterior right lower extremity overlying the Achilles tendon distally secondary to the heel cup of the shoe rubbing the back of the leg. Skin no rashes or lesions noted, skin turgor normal and no jaundice Wound Narrative: There is a wound noted to the posterior aspect of the right lower extremity at the distal aspect of the Achilles tendon secondary to shoe heel cup rubbing the back of her lower extremity. Wound base demonstrates fibrogranular tissue however site is close to the Achilles tendon. No purulent drainage, no malodor, no palpable fluctuance/bogginess, no visible abscess noted. No signs of infection. Neuro moves all extremities Debridement Note Debridement Note Wound debrided: Right posterior lower extremity Laterality: Right Wound Grade/Stage: Mustafa stage II Type of Debridement: Excisional debridement Anesthesia Used: 5% Lidocaine Gel Depth: Down to and including healthy tissue and in the subcutaneous layer Percentage of wound debrided: 100 Instrument Used: 3mm curette Tissue Removed: Fibrous, devitalized subcutaneous, biofilm, slough Severity: Fat Layer Exposed Amount of bleeding with debridement: Mild Bleeding Controlled with: Compression and gauze Patient tolerated procedure: Patient tolerated procedure well Post-Debridement Measurements and Additional Note: Post-Debridement Measurements/Treatment - Nurse 1 - General Ulcer Assessment Start: 05/30/22 08:14 Freq: Status: Active Protocol: ARNOLDO Activity Type Activity Date Activity User E-sign Co-sign Detail Recorded Client Recorded Date Recorded By Document 05/30/22 08:14 VT [id number] 05/30/22 08:21 VT 05/30/22 08:14 - Today's Visit Information Type of service Initial Visit Arrival Mode Ambulatory Patient Identification Verified (Name & Yes ) Patient Requires Transmission-Based No Precautions Height and Weight Height 5 ft 7 in Weight 76.204 kg Weight in Pounds 168.0 lbs Weight Measurement Method Estimated by Patient Body Mass Index (BMI) 26.3 BMI Classification Overweight BSA - Kamlesh 1.88 Vital Signs Temperature (97.8 F-99.1 F) 97.2 F L Temperature Source Temporal Pulse Rate (60-100) 72 Pulse Location Monitor Blood Pressure (90/60-120/80) 147/67 H Blood Pressure Mean 93 Source Monitor Pain Scale: 0-10 Numeric Is Patient Pain Free? Yes - Nurse 1 - General Ulcer Measurement Start: 05/30/22 08:14 Freq: Status: Active Protocol: Activity Type Activity Date Activity User E-sign Co-sign Detail Recorded Client Recorded Date Recorded By Document 05/30/22 08:14 VT [id number] 05/30/22 08:21 VT 05/30/22 08:14 Wound Center Nurse 1 R posterior LE -Combined with other wound No -Current Size (cm) - Length 0.8 -Current Size (cm) - Width 2 -Current Size (cm) - Depth 0.2 -Total Square Cm 1.6 -Date of Last Picture (Recall this 05/30/22 field) -Photo Taken Yes -Tunneling No -Undermining/Tunneling No -Circular Undermining No -Change in Wound Grade/Stage No -Exudate Amt Medium -Exudate Type Serosanguineous -Wound Margin Distinct, Outline Attached -Granulation Amt Medium (34-66%) -Granulation Quality [place] -Slough/Fibrin Yes -Necrosis Amt Medium (34-66%) -Necrotic Tissue Type Adherent Slough -Structure Exposed N/A -Texture (Chitra-wound Skin Appearance) No Abnormality, Assessed -Moisture (Chitra-wound Skin Appearance) No Abnormality, Assessed -Color (Chitra-wound Skin Appearance) No Abnormality, Assessed -Temperature (Chitra-wound Skin No Abnormality Appearance) (Pt Warm) -Tenderness on Palpation (Chitra-wound No Skin Appearance) -Ulcer Cleansing Rinsed/ Irrigated with Saline -Foul Odor after Cleansing No -Anesthetic Used 5% Lidocaine Gel #1 R anterior ankle -Combined with other wound No -Current Size (cm) - Length 0.4 -Current Size (cm) - Width 2 -Current Size (cm) - Depth 0.2 -Total Square Cm 0.8 -Date of Last Picture (Recall this 05/30/22 field) -Photo Taken Yes -Tunneling No -Undermining/Tunneling No -Circular Undermining No -Change in Wound Grade/Stage No -Exudate Amt Medium -Exudate Type Serosanguineous -Wound Margin Distinct, Outline Attached -Granulation Amt None Present (0 %) -Granulation Quality N/A -Slough/Fibrin Yes -Necrosis Amt Large (67-100%) -Necrotic Tissue Type Adherent Slough -Structure Exposed N/A -Texture (Chitra-wound Skin Appearance) No Abnormality, Assessed -Moisture (Chitra-wound Skin Appearance) No Abnormality, Assessed -Color (Chitra-wound Skin Appearance) No Abnormality, Assessed -Temperature (Chitra-wound Skin No Abnormality Appearance) (Pt Warm) -Tenderness on Palpation (Chitra-wound No Skin Appearance) -Ulcer Cleansing Soap and Water -Foul Odor after Cleansing Yes, Due to Product Use -Anesthetic Used 5% Lidocaine Gel Lower Limb Edema Present Yes Assessment/Plan Assessment/Plan (1) Essential (primary) hypertension: CODE(S): I10 - Essential (primary) hypertension (2) HLD (hyperlipidemia): CODE(S): E78.5 - Hyperlipidemia, unspecified QUALIFIERS: Hyperlipidemia type: pure hypercholesterolemia Qualified Code(s): E78.00 - Pure hypercholesterolemia, unspecified; E78.0 - Pure hypercholesterolemia (3) Chronic diastolic (congestive) heart failure: CODE(S): I50.32 - Chronic diastolic (congestive) heart failure (4) Bilateral lower extremity edema: CODE(S): R60.0 - Localized edema (5) Raynaud disease: CODE(S): I73.00 - Raynaud's syndrome without gangrene (6) Non-pressure chronic ulcer of right calf with fat layer exposed: CODE(S): L97.212 - Non-pressure chronic ulcer of right calf with fat layer exposed PLAN: Plan Patient seen and evaluated Ulceration noted to the posterior aspect of the right lower extremity overlying the distal aspect of the Achilles tendon. States ulceration is related to shoe gear irritation. Ulceration underwent debridement as noted in the clinical panel above. Ulceration measures 1.0 cm x 1.2 cm x 0.2 cm. Ulceration demonstrates no signs of infection. Olivia applied to the wound bed with dry sterile dressing. She is to change the dressing daily. I will seek application of advanced wound care product for application at next visit. I discussed with her today that the ulceration is in close proximity to the Achilles tendon and this may complicate healing should she get an infection. She voices understanding of this. Discussed continued use of Tubigrip compression and elevation of lower extremities at all times of rest to aid in edema control. I discussed the signs and symptoms of infection with her today. She was instructed that if she gets any increasing redness about the wound margins extending up the back of her leg, any purulent drainage from the wound site, increasing foul odor, or if she experiences any fever greater than 101 degree, nausea, vomiting, or chills that these are signs of a progressing infection and she needs to report to the ED. She voices understanding of this today. The following work up and care recommendations were made: Dressing: Olivia and dry sterile dressing Wash: Soap and water, pat the area dry Tissue growth optimization: Olivia Offload: Ensure the back of the leg is not in direct contact with chair/recliner and remains padded by pillows offloading at all times of rest Vascular: Patient does have adequate DP and PT pulse pulses. Capillary fill time is adequate to the digits Edema: Continued elevation of the lower extremities at times of rest and Tubigrip compression stocking Infection: No signs of infection Pain: May take [id number] Tylenol extra strength for pain Host factors: Advanced age, edema, Raynaud's/vascular disease I answered all the patient's questions. To return to the wound healing center in 1 week or call sooner if the patient has any questions or concerns. Note: [employer] speech recognition cumulative effects analyst software was used to create portions of this document. Sound-alike and misspelled words, as well as other cumulative effects analyst errors may be contained in the documentation.
[2022-06-06 10:01] VITALS: BP 137/71; PULSE 83; RESP 16; TEMP 35.9; BMI 26.3
--- NOTE | 2022-06-06 10:23 | PN.PCM_ITS ---
History of Present Illness Date of Service: 06/06/22 Chief Complaint: Right lower extremity wound History of Wound: Patient is an 86-year-old female with history of atherosclerotic disease, peripheral vascular disease, Raynaud's, hyperlipidemia who presented to Dr. Dang office with new wound to the posterior aspect of her right lower extremity secondary to shoe gear rubbing against the back of her leg. States that she was placed on an antibiotic and had been applying antibiotic ointment to the wound. She was seen by me in office last week for her debridement of nails. She stated that she would be seen in the wound care center next week and thus I have not started treatment of the right lower extremity wound performing debridement of the wound in office. She states wound has been present for only a few weeks without improvement prior to seeking care. Subjective Subjective This is an 86-year-old female who presents to the wound care center for follow- up of a right lower extremity posterior leg wound. She has been changing the dressings to the site daily. She has been ensuring that her shoe gear is not rubbing against the back of the leg. She denies constitutional symptoms today. She has no further complaints today. Objective Data Objective Data Vital Signs: Vital Signs Temp Pulse Resp BP 96.7 F L 83 16 137/71 H 06/06/22 10:01 06/06/22 10:01 06/06/22 10:01 06/06/22 10:01 Weight: 76.204 kg Body Mass Index (BMI) 26.3 Physical Exam Const alert, oriented x3 and no apparent distress General Appearance: cooperative HEENT normocephalic Eyes General Eye: normal appearance of both eyes Neck General: normal visual inspection Lymph Lymphatic: no lymphadenopathy noted and no lymphedema noted Resp normal respiratory effort Cardio regular rate and regular rhythm Extremity normal capillary refill, no joint enlargement and no calf tenderness Extremity Narrative: DP and PT pulses weakly palpable. CFT < 5 seconds and adequate to the digits. There is bilateral lower extremity edema +2 pitting with purplish discoloration of the entire lower extremity secondary to her peripheral vascular disease and Raynaud's. There is a wound noted to the posterior right lower extremity overlying the Achilles tendon distally secondary to the heel cup of the shoe rubbing the back of the leg. Skin no rashes or lesions noted, skin turgor normal and no jaundice Wound Narrative: There is a wound noted to the posterior aspect of the right lower extremity at the distal aspect of the Achilles tendon secondary to shoe heel cup rubbing the back of her lower extremity. Wound base demonstrates fibrogranular tissue however site is close to the Achilles tendon. No purulent drainage, no malodor, no palpable fluctuance/bogginess, no visible abscess noted. No signs of infection. Neuro moves all extremities Debridement Note Debridement Note Wound debrided: Right posterior lower extremity Laterality: Right Wound Grade/Stage: Mustafa stage II Type of Debridement: Excisional debridement Anesthesia Used: 5% Lidocaine Gel Depth: Down to and including healthy tissue and in the subcutaneous layer Percentage of wound debrided: 100 Instrument Used: 3mm curette Tissue Removed: Fibrous, devitalized subcutaneous, biofilm, slough Severity: Fat Layer Exposed Amount of bleeding with debridement: Mild Bleeding Controlled with: Compression and gauze Patient tolerated procedure: Patient tolerated procedure well Post-Debridement Measurements and Additional Note: Post-Debridement Measurements/Treatment WC - Nurse 1 - General Ulcer Assessment Start: 05/30/22 08:14 Freq: Status: Active Protocol: ARNOLDO Activity Type Activity Date Activity User E-sign Co-sign Detail Recorded Client Recorded Date Recorded By Document 05/30/22 08:14 AK [id number] 05/30/22 08:21 AK Edit Result 05/30/22 08:14 AK (1) [id number] 05/30/22 08:32 AK Document 06/06/22 10:01 AK [id number] 06/06/22 10:06 AK (1) Left - Posterior Tibial Palpable => Yes - Posterior Tibial Doppler => Multiphasic - Dorsalis Pedis Palpable => Yes - Dorsalis Pedis Doppler => Multiphasic - Hair Growth on Legs => No - Hair Growth on Toes => No - Temperature of Extremity => Cool Right - Posterior Tibial Palpable => Yes - Posterior Tibial Doppler => Multiphasic - Dorsalis Pedis Palpable => Yes - Dorsalis Pedis Doppler => Inaudible - Extremity Color => Hyperpigmented, => Hemosiderin - Hair Growth on Legs => No - Hair Growth on Toes => No - Temperature of Extremity => Cool - Capillary Refill => Less than 3 => Seconds - Dependent Rubor => Yes - Blanched when Elevated => Yes - Thick => Yes - Discolored => No - Deformed => No - Improper Length & Hygeine => No Preferred language => Swedish Dairy Specialist Required => No Able to Read => No: macular => degeneration Able to Write => Yes Communication Tools => None,Large Print => Literature Caregiver Communication Skills => No Impairment Impairment Right Hearing Abillity => Normal,Use of => Hearing Aid Left Hearing Abillity => Normal,Use of => Hearing Aid Visual Assistive Devices => Glasses,Magnifying => Glass Preferences => Demonstration Readiness To Learn => Excellent Willingness to Engage in Self Management => High Activies Readiness to Engage in Self Management => High Activities Anxiety Level => Calm Cooperation => Cooperative Perception => Coherent Interest in Health Problem => Asks Questions Education Importance => Acknowledges Need Does Patient Smoke tobacco or other => No substances Smoking Status => Never smoker Is Patient Diabetic => Yes Recent Decline in Ability to Perform => Denies Any => Declines Assistive Device With Patient => Yes List Device(s) with Patient => cane Cultural/Mosque Needs that may affect => No Treatment Plan Would you allow our hospital orthophotography technician to => No meet you for the purpose of spiritual/ emotional support? Custodian to contact place of quaker => No Control Swelling with Leg Elevation - Person Taught => Patient - Teaching Method => Discussion, => Demonstration - Response to teaching => Return => demonstration, => Verbalize => understanding [facility] Orientation/ Contacting Physician - Person Taught => Patient - Teaching Method => Discussion, => Demonstration - Response to teaching => Return => demonstration, => Verbalize => understanding 05/30/22 06/06/22 08:14 10:01 [facility] Today's Visit Information Type of service Initial Visit Follow-up Visit (Physician/[employer] ) Arrival Mode Ambulatory Ambulatory Patient Identification Verified (Name & Yes No ) Patient Requires Transmission-Based No No Precautions Safety Precautions NA Height and Weight Height 5 ft 7 in Weight 76.204 kg Weight in Pounds 168.0 lbs Weight Measurement Method Estimated by Patient Body Mass Index (BMI) 26.3 26.3 BMI Classification Overweight Overweight BSA - Kamlesh 1.88 Vital Signs Temperature (97.8 F-99.1 F) 97.2 F L 96.7 F L Temperature Source Temporal Temporal Pulse Rate (60-100) 72 83 Pulse Location Monitor Monitor Respiratory Rate (12-18) 16 Respiratory rate source Observation Blood Pressure (90/60-120/80) 147/67 H 137/71 H Blood Pressure Mean (mm Hg) 93 93 Source Monitor Monitor Position Sitting Blood Pressure Location Left Arm History Since Last Visit- (Skip if this is Patient's initial visit) Have you changed medications since your No last visit? Any new allergies or adverse reactions No Had a fall/change in ADL's that may No increase risk of falls Signs or symptoms of abuse and/or No neglect since last visit Have you been in the hospital since your No last visit? Has dressing in place as prescribed Yes Has compression in place as prescribed Yes Has offloadiing in place as prescribed N/A Experienced any changes in pain level or No management Left Footwear Regular Shoe Right Footwear Regular Shoe Pain Scale: 0-10 Numeric Is Patient Pain Free? Yes Yes Lower Extremity Assessment/ Foot Assessment/ Toe Nail Assessment Left -Posterior Tibial Palpable Yes -Posterior Tibial Doppler Multiphasic -Dorsalis Pedis Palpable Yes -Dorsalis Pedis Doppler Multiphasic -Hair Growth on Legs No -Hair Growth on Toes No -Temperature of Extremity Cool Right -Posterior Tibial Palpable Yes -Posterior Tibial Doppler Multiphasic -Dorsalis Pedis Palpable Yes -Dorsalis Pedis Doppler Inaudible -Extremity Color Hyperpigmented, Hemosiderin -Hair Growth on Legs No -Hair Growth on Toes No -Temperature of Extremity Cool -Capillary Refill Less than 3 Seconds -Dependent Rubor Yes -Blanched when Elevated Yes -Thick Yes -Discolored No -Deformed No -Improper Length & Hygeine No Communication Assessment Preferred language Swedish Dairy Specialist Required No Able to Read No: macular degeneration Able to Write Yes Communication Tools None,Large Print Literature Caregiver Communication Skills No Impairment Impairment Right Hearing Abillity Normal,Use of Hearing Aid Left Hearing Abillity Normal,Use of Hearing Aid Visual Assistive Devices Glasses, Magnifying Glass Teaching Assessment Preferences Demonstration Readiness To Learn Excellent Willingness to Engage in Self Management High Activies Readiness to Engage in Self Management High Activities Anxiety Level Calm Cooperation Cooperative Perception Coherent Interest in Health Problem Asks Questions Education Importance Acknowledges Need Does Patient Smoke tobacco or other No substances Smoking Status Never smoker Is Patient Diabetic Yes Functional Assessment Recent Decline in Ability to Perform Denies Any Declines Assistive Device With Patient Yes List Device(s) with Patient cane Culture/Mosque/Custodian Cultural/Mosque Needs that may affect No Treatment Plan Would you allow our hospital orthophotography technician to No meet you for the purpose of spiritual/ emotional support? Custodian to contact place of quaker No Teaching: Wound Center Control Swelling with Leg Elevation -Person Taught Patient -Teaching Method Discussion, Demonstration -Response to teaching Return demonstration, Verbalize understanding [facility] Orientation/ Contacting Physician -Person Taught Patient -Teaching Method Discussion, Demonstration -Response to teaching Return demonstration, Verbalize understanding - Nurse 1 - General Ulcer Measurement Start: 05/30/22 08:14 Freq: Status: Active Protocol: Activity Type Activity Date Activity User E-sign Co-sign Detail Recorded Client Recorded Date Recorded By Document 05/30/22 08:14 AK [id number] 05/30/22 08:21 AK Edit Result 05/30/22 08:14 AK (1) [id number] 05/30/22 08:32 AK Document 06/06/22 10:01 AK [id number] 06/06/22 10:06 AK (1) Right Calf (cm) => 33 Right Ankle (cm) => 24.1 Left Calf (cm) => 33.6 Left Ankle (cm) => 23.8 05/30/22 06/06/22 08:14 10:01 Wound Center Nurse 1 R posterior LE -Combined with other wound No No -Current Size (cm) - Length 0.8 0.6 -Current Size (cm) - Width 2 1.1 -Current Size (cm) - Depth 0.2 0.2 -Total Square Cm 1.6 0.66 -Date of Last Picture (Recall this 05/30/22 field) -Photo Taken Yes -Tunneling No -Undermining/Tunneling No -Circular Undermining No -Change in Wound Grade/Stage No -Exudate Amt Medium Medium -Exudate Type Serosanguineous Serosanguineous -Wound Margin Distinct, Distinct, Outline Outline Attached Attached -Granulation Amt Medium (34-66%) None Present (0 %) -Granulation Quality [place] -Slough/Fibrin Yes Yes -Necrosis Amt Medium (34-66%) Medium (34-66%) -Necrotic Tissue Type Adherent Slough Adherent Slough -Structure Exposed N/A -Texture (Chitra-wound Skin Appearance) No Abnormality, Assessed Assessed -Moisture (Chitra-wound Skin Appearance) No Abnormality, Assessed Assessed -Color (Chitra-wound Skin Appearance) No Abnormality, Assessed Assessed -Temperature (Chitra-wound Skin No Abnormality No Abnormality Appearance) (Pt Warm) (Pt Warm) -Tenderness on Palpation (Chitra-wound No No Skin Appearance) -Ulcer Cleansing Rinsed/ Soap and Water Irrigated with Saline -Foul Odor after Cleansing No No -Anesthetic Used 5% Lidocaine 5% Lidocaine Gel Gel #1 R anterior ankle -Combined with other wound No -Current Size (cm) - Length 0.4 0.1 -Current Size (cm) - Width 2 0.1 -Current Size (cm) - Depth 0.2 0.1 -Total Square Cm 0.8 0.01 -Date of Last Picture (Recall this 05/30/22 field) -Photo Taken Yes -Tunneling No -Undermining/Tunneling No -Circular Undermining No -Change in Wound Grade/Stage No -Exudate Amt Medium None Present -Exudate Type Serosanguineous -Wound Margin Distinct, Outline Attached -Granulation Amt None Present (0 None Present (0 %) %) -Granulation Quality N/A -Slough/Fibrin Yes No -Necrosis Amt Large (67-100%) None Present (0 %) -Necrotic Tissue Type Adherent Slough -Structure Exposed N/A -Texture (Chitra-wound Skin Appearance) No Abnormality, No Abnormality Assessed -Moisture (Chitra-wound Skin Appearance) No Abnormality, Assessed Assessed -Color (Chitra-wound Skin Appearance) No Abnormality, Assessed Assessed -Temperature (Chitra-wound Skin No Abnormality No Abnormality Appearance) (Pt Warm) (Pt Warm) -Tenderness on Palpation (Chitra-wound No No Skin Appearance) -Ulcer Cleansing Soap and Water Rinsed/ Irrigated with Saline -Foul Odor after Cleansing Yes, Due to No Product Use -Anesthetic Used 5% Lidocaine Gel Lower Limb Edema Present Yes Right Calf (cm) 33 32 Right Ankle (cm) 24.1 23.5 Left Calf (cm) 33.6 Left Ankle (cm) 23.8 WC - Nurse 2 - General Ulcer CM Notes Start: 05/30/22 08:14 Freq: Status: Active Protocol: Activity Type Activity Date Activity User E-sign Co-sign Detail Recorded Client Recorded Date Recorded By Document 05/30/22 11:45 PL [id number] 05/30/22 11:49 PL 05/30/22 11:45 Wound Center Nurse 2 R posterior LE -Time 08:49 -Correct Patient Yes -Correct Side, Site, Position Yes -Correct Procedure Yes -Procedure Performed Yes -Type of Procedure Debridement -Clinical Debridement Subcutaneous -Tissue Removed Subcutaneous -Post Debridement (cm) - Length 1.0 -Post Debridement (cm) - Width 1.7 -Post Debridement (cm) - Depth 0.2 -Total Square (Post) (cm) 1.70 -Area of Debridement (cm) - Length 1.0 -Area of Debridement (cm) - Width 0.7 -Total Square (Area) (cm) 0.70 -Tunneling No -Undermining/Tunneling No -Circular Undermining No -Wound/Ulcer Outcome Not Healed -Ulcer Cleansing Rinsed/ Irrigated with Saline -Foul Odor after Cleansing No -Bioengineered Tissue No -Bleeding Controlled with Pressure -Treatment Response Procedure Tolerated Well -Debridement - Subq, 1st 20sq cm Yes #1 R anterior ankle -Procedure Performed No Pain Scale: 0-10 Numeric Is Patient Pain Free? Yes WC - Nurse 3 - General Ulcer D/C NN Start: 05/30/22 08:14 Freq: Status: Active Protocol: Activity Type Activity Date Activity User E-sign Co-sign Detail Recorded Client Recorded Date Recorded By Document 05/30/22 09:06 VT [id number] 05/30/22 09:07 AK 05/30/22 09:06 Wound Care Center Nurse 3 R posterior LE -Ulcer Cleansing Rinsed/ Irrigated with Saline -Foul Odor after Cleansing No -Negative Pressure Wound Therapy N/A -Primary Dressing Applied Promogran Olivia Matter, Mepilex Border -Mepilex Border 1 -Promogran Olivia Matter 2 Pain Scale: 0-10 Numeric Is Patient Pain Free? Yes WC - Visit Discharge Discharge Condition Stable Transportation Private Auto Medication Reconcilliation completed & Yes provided to patient/care provider Clinical Summary of Care Provided Yes Assessment/Plan Assessment/Plan (1) Essential (primary) hypertension: CODE(S): I10 - Essential (primary) hypertension (2) HLD (hyperlipidemia): CODE(S): E78.5 - Hyperlipidemia, unspecified QUALIFIERS: Hyperlipidemia type: pure hypercholesterolemia Qualified Code(s): E78.00 - Pure hypercholesterolemia, unspecified; E78.0 - Pure hypercholesterolemia (3) Chronic diastolic (congestive) heart failure: CODE(S): I50.32 - Chronic diastolic (congestive) heart failure (4) Bilateral lower extremity edema: CODE(S): R60.0 - Localized edema (5) Raynaud disease: CODE(S): I73.00 - Raynaud's syndrome without gangrene (6) Non-pressure chronic ulcer of right calf with fat layer exposed: CODE(S): L97.212 - Non-pressure chronic ulcer of right calf with fat layer exposed PLAN: Plan Patient seen and evaluated Ulceration noted to the posterior aspect of the right lower extremity overlying the distal aspect of the Achilles tendon. States ulceration is related to shoe gear irritation. Ulceration underwent debridement as noted in the clinical panel above. Ulceration measures 0.7 cm x 1.5 cm x 0.2 cm. Ulceration demonstrates no signs of infection. She has been approved for advanced wound care product. TheraSkin #1 applied to the wound bed with Adaptic touch and Steri-Strips with dry sterile dressing. She is to change the outer dressings as needed. She was instructed to not get the site wet. I discussed with her today that the ulceration is in close proximity to the Achilles tendon and this may complicate healing should she get an infection. She voices understanding of this. Discussed continued use of Tubigrip compression and elevation of lower extremities at all times of rest to aid in edema control. I discussed the signs and symptoms of infection with her today. She was instructed that if she gets any increasing redness about the wound margins extending up the back of her leg, any purulent drainage from the wound site, increasing foul odor, or if she experiences any fever greater than 101 degree, nausea, vomiting, or chills that these are signs of a progressing infection and she needs to report to the ED. She voices understanding of this today. The following work up and care recommendations were made: Dressing: TheraSkin, Adaptic touch, Steri-Strips, and dry sterile dressing Wash: Do not get wet Tissue growth optimization: TheraSkin Offload: Ensure the back of the leg is not in direct contact with chair/recliner and remains padded by pillows offloading at all times of rest Vascular: Patient does have adequate DP and PT pulse pulses. Capillary fill time is adequate to the digits Edema: Continued elevation of the lower extremities at times of rest and Tubigrip compression stocking Infection: No signs of infection Pain: May take [id number] Tylenol extra strength for pain Host factors: Advanced age, edema, Raynaud's/vascular disease I answered all the patient's questions. To return to the wound healing center in 1 week or call sooner if the patient has any questions or concerns. Note: [email or web address] speech recognition information services assistant software was used to create portions of this document. Sound-alike and misspelled words, as well as other information services assistant errors may be contained in the documentation.
== END 2022-06-11 23:59 | disposition home or self-care (01) ==
LOC: WC 09:30
PROVIDERS: PCP Internal Medicine; Visit Provider Student in an Organized Health Care Education/Training Program
DX: E11.622 Type 2 diabetes mellitus with other skin ulcer (principal); E11.51 Type 2 diabetes mellitus with diabetic peripheral angiopathy without gangrene; L97.212 Non-pressure chronic ulcer of right calf with fat layer exposed; I11.0 Hypertensive heart disease with heart failure; I50.32 Chronic diastolic (congestive) heart failure; E78.00 Pure hypercholesterolemia, unspecified; Z86.16 Personal history of COVID-19; Z79.82 Long term (current) use of aspirin; I73.00 Raynaud's syndrome without gangrene; I25.10 Atherosclerotic heart disease of native coronary artery without angina pectoris
CPT/HCPCS: 11042; 15271; 99213; Q4121; G0463

== ENCOUNTER → 2022-07-05 | Outpatient (CLI) | payer MEDICARE, OTHER, SELFPAY ==
--- NOTE | 2022-07-05 12:42 | BI_ITS ---
MAMMOGRAPHY - BILATERAL SCREENING REASON FOR EXAM: Female, 86 years old. Routine annual screening examination. PERTINENT HISTORY: Non-contributory. TECHNIQUE: Digital bilateral breast linda (3D mammographic acquisition) in the CC and MLO projections. 2-D mediolateral oblique (MLO) and craniocaudad (CC) views of both breasts were obtained. CAD: Full Field Digital Mammography with Computer Added Detection was performed. COMPARISON: Comparison is made with prior study July 03, 2021 and June 30, 2018. FINDINGS: Breast Composition: The breasts are almost entirely fatty. There are no dominant masses or suspicious calcifications. A battery pack from a pacemaker device is once again seen in the left axillary region. No other significant abnormalities are identified. There has been no significant change since the prior study. BI/SCRN MAMM (CAD)W/LINDA BILAT IMPRESSION: Stable bilateral screening mammogram. Yearly follow-up mammogram recommended. (A) ASSESSMENT CATEGORY: BIRADS Category 2: Benign. A letter regarding these results will be sent to the patient by the facility within 30 days. Approximately 10% of breast cancers are not detected by mammography. A normal mammogram should not delay biopsy of a clinically suspicious abnormality. [id number] Electronically Signed: Denis Casillas MD at 13:48 EDT ,
== END | disposition home or self-care (01) ==
LOC: OPBI 12:41
PROVIDERS: PCP Internal Medicine; Visit Provider Internal Medicine
DX: Z12.31 Encounter for screening mammogram for malignant neoplasm of breast (principal)
CPT/HCPCS: 77063; 77067

== ENCOUNTER 2022-07-11 08:30 | Outpatient (RCR) | payer MEDICARE, OTHER, SELFPAY ==
[2022-06-12 00:34] VITALS: BP 137/71; PULSE 83; RESP 16; TEMP 35.9; BMI 26.3
--- NOTE | 2022-06-13 09:57 | PN.PCM_ITS ---
History of Present Illness Date of Service: 06/13/22 Chief Complaint: Right lower extremity wound History of Wound: Patient is an 86-year-old female with history of atherosclerotic disease, peripheral vascular disease, Raynaud's, hyperlipidemia who presented to Dr. Dang office with new wound to the posterior aspect of her right lower extremity secondary to shoe gear rubbing against the back of her leg. States that she was placed on an antibiotic and had been applying antibiotic ointment to the wound. She was seen by me in office last week for her debridement of nails. She stated that she would be seen in the wound care center next week and thus I have not started treatment of the right lower extremity wound performing debridement of the wound in office. She states wound has been present for only a few weeks without improvement prior to seeking care. Subjective Subjective This is an 86-year-old female who presents to the wound care center for follow- up of a right lower extremity posterior leg wound.? She has been changing the dressings to the site daily.? She has been ensuring that her shoe gear is not rubbing against the back of the leg or the end of the chair does not contact leg at rest.? She denies constitutional symptoms today.? She has no further complaints today. Objective Data Objective Data Vital Signs: Vital Signs Temp Pulse Resp BP 96.7 F L 83 16 137/71 H 06/12/22 00:34 06/12/22 00:34 06/12/22 00:34 06/12/22 00:34 Weight: 76.204 kg Body Mass Index (BMI) 26.3 Physical Exam Const alert, oriented x3 and no apparent distress General Appearance: cooperative HEENT normocephalic Eyes General Eye: normal appearance of both eyes Neck General: normal visual inspection Lymph Lymphatic: no lymphadenopathy noted and no lymphedema noted Resp normal respiratory effort Cardio regular rate and regular rhythm Extremity normal capillary refill, no joint enlargement, no calf tenderness and no pedal edema Extremity Narrative: DP and PT pulses weakly palpable.? CFT < 5 seconds and adequate to the digits.? There is bilateral lower extremity edema +2 pitting with purplish discoloration of the entire lower extremity secondary to her peripheral vascular disease and Raynaud's.? There is a wound noted to the posterior right lower extremity overlying the Achilles tendon distally secondary to the heel cup of the shoe rubbing the back of the leg. Skin no rashes or lesions noted, skin turgor normal and no jaundice Wound Narrative: There is a wound noted to the posterior aspect of the right lower extremity at the distal aspect of the Achilles tendon secondary to shoe heel cup rubbing the back of her lower extremity.? Wound base demonstrates fibrogranular tissue however site is close to the Achilles tendon.? No purulent drainage, no malodor, no palpable fluctuance/bogginess, no visible abscess noted.? No signs of infection. Neuro moves all extremities Debridement Note Debridement Note Wound debrided: Right posterior lower extremity Laterality: Right Wound Grade/Stage: Mustafa stage II Type of Debridement: Excisional debridement Anesthesia Used: 5% Lidocaine Gel Depth: Down to and including healthy tissue and in the subcutaneous layer Percentage of wound debrided: 100 Instrument Used: 3mm curette Tissue Removed: Fibrous, devitalized subcutaneous, biofilm, slough Severity: Fat Layer Exposed Amount of bleeding with debridement: Mild Bleeding Controlled with: Compression and gauze Patient tolerated procedure: Patient tolerated procedure well Assessment/Plan Assessment/Plan (1) Non-pressure chronic ulcer of right calf with fat layer exposed: CODE(S): L97.212 - Non-pressure chronic ulcer of right calf with fat layer exposed (2) Raynaud disease: CODE(S): I73.00 - Raynaud's syndrome without gangrene (3) Bilateral lower extremity edema: CODE(S): R60.0 - Localized edema (4) Hypogammaglobulinemia, acquired: CODE(S): D80.1 - Nonfamilial hypogammaglobulinemia (5) HLD (hyperlipidemia): CODE(S): E78.5 - Hyperlipidemia, unspecified QUALIFIERS: Hyperlipidemia type: pure hypercholesterolemia Qualified Code(s): E78.00 - Pure hypercholesterolemia, unspecified; E78.0 - Pure hypercholesterolemia (6) Chronic diastolic (congestive) heart failure: CODE(S): I50.32 - Chronic diastolic (congestive) heart failure (7) Essential (primary) hypertension: CODE(S): I10 - Essential (primary) hypertension PLAN: Plan Patient seen and evaluated Ulceration noted to the posterior aspect of the right lower extremity overlying the distal aspect of the Achilles tendon.? States ulceration is related to shoe gear irritation.? Ulceration underwent debridement as noted in the clinical panel above.? Ulceration measures 0.7 cm x 0.9 cm x 0.2 cm.? Ulceration demonstrates no signs of infection.? Ulceration has decreased in size versus previous visit. She has been approved for advanced wound care product.? TheraSkin #2 applied to the wound bed with Adaptic touch and Steri-Strips with dry sterile dressing.? She is to change the outer dressings as needed.? She was instructed to not get the site wet. I discussed with her today that the ulceration is in close proximity to the Achilles tendon and this may complicate healing should she get an infection.? She voices understanding of this. Discussed continued use of Tubigrip compression and elevation of lower extremities at all times of rest to aid in edema control. I discussed the signs and symptoms of infection with her today.? She was instructed that if she gets any increasing redness about the wound margins extending up the back of her leg, any purulent drainage from the wound site, increasing foul odor, or if she experiences any fever greater than 101 degree, nausea, vomiting, or chills that these are signs of a progressing infection and she needs to report to the ED.? She voices understanding of this today. The following work up and care recommendations were made: Dressing: TheraSkin, Adaptic touch, Steri-Strips, and dry sterile dressing Wash: Do not get wet Tissue growth optimization: TheraSkin Offload: Ensure the back of the leg is not in direct contact with chair/recliner and remains padded by pillows offloading at all times of rest Vascular: Patient does have adequate DP and PT pulse pulses.? Capillary fill time is adequate to the digits Edema: Continued elevation of the lower extremities at times of rest and Tubigrip compression stocking Infection: No signs of infection Pain: May take [id number] Tylenol extra strength for pain Host factors: Advanced age, edema, Raynaud's/vascular disease ? I answered all the patient's questions.? To return to the wound healing center in 1 week or call sooner if the patient has any questions or concerns.
[2022-06-13 10:31] VITALS: BP 136/72; PULSE 66; TEMP 36.3; BMI 26.3
[2022-06-20 09:26] VITALS: BP 159/55; PULSE 84; TEMP 28.8; BMI 26.3
--- NOTE | 2022-06-20 09:49 | PCM.WC.PN ---
History of Present Illness Date of Service: 06/20/22 Chief Complaint: Right lower extremity wound History of Wound: Patient is an 86-year-old female with history of atherosclerotic disease, peripheral vascular disease, Raynaud's, hyperlipidemia who presented to Dr. Dang office with new wound to the posterior aspect of her right lower extremity secondary to shoe gear rubbing against the back of her leg. States that she was placed on an antibiotic and had been applying antibiotic ointment to the wound. She was seen by me in office last week for her debridement of nails. She stated that she would be seen in the wound care center next week and thus I have not started treatment of the right lower extremity wound performing debridement of the wound in office. She states wound has been present for only a few weeks without improvement prior to seeking care. Subjective Subjective This is an 86-year-old female who presents to the wound care center for follow-up of a right lower extremity posterior leg wound.? She has been changing the outer dressings to the site daily.? She has been ensuring that her shoe gear is not rubbing against the back of the leg or the end of the chair does not contact leg at rest.? She denies constitutional symptoms today.? She has no further complaints today. Objective Data Objective Data Vital Signs: Vital Signs Temp Pulse Resp BP 84 F L 84 16 159/55 H 06/20/22 09:26 06/20/22 09:26 06/12/22 00:34 06/20/22 09:26 Weight: 76.204 kg Body Mass Index (BMI) 26.3 Physical Exam Const alert, oriented x3 and no apparent distress General Appearance: cooperative HEENT normocephalic Eyes General Eye: normal appearance of both eyes Neck General: normal visual inspection Lymph Lymphatic: no lymphadenopathy noted and no lymphedema noted Resp normal respiratory effort Cardio regular rate and regular rhythm Extremity normal capillary refill, no joint enlargement, no calf tenderness and no pedal edema Extremity Narrative: DP and PT pulses weakly palpable.? CFT < 5 seconds and adequate to the digits.? There is bilateral lower extremity edema +2 pitting with purplish discoloration of the entire lower extremity secondary to her peripheral vascular disease and Raynaud's.? There is a wound noted to the posterior right lower extremity overlying the Achilles tendon distally secondary to the heel cup of the shoe rubbing the back of the leg. Skin no rashes or lesions noted, skin turgor normal and no jaundice Wound Narrative: There is a wound noted to the posterior aspect of the right lower extremity at the distal aspect of the Achilles tendon secondary to shoe heel cup rubbing the back of her lower extremity.? Wound base demonstrates fibrogranular tissue however site is close to the Achilles tendon.? No purulent drainage, no malodor, no palpable fluctuance/bogginess, no visible abscess noted.? No signs of infection. Neuro moves all extremities Debridement Note Debridement Note Wound debrided: Right lower extremity Laterality: Right Wound Grade/Stage: Mustafa stage II Type of Debridement: Excisional debridement Anesthesia Used: 5% Lidocaine Gel Depth: Down to and including healthy tissue and in the subcutaneous layer Percentage of wound debrided: 100 Instrument Used: 3mm curette Tissue Removed: Fibrous, devitalized subcutaneous, biofilm, slough Severity: Fat Layer Exposed Amount of bleeding with debridement: Mild Bleeding Controlled with: Compression and gauze Patient tolerated procedure: Patient tolerated procedure well Post-Debridement Measurements and Additional Note: Post-Debridement Measurements/Treatment - Nurse 1 - General Ulcer Assessment Start: 06/13/22 10:31 Freq: Status: Active Protocol: ARNOLDO Activity Type Activity Date Activity User E-sign Co-sign Detail Recorded Client Recorded Date Recorded By Document 06/13/22 10:31 ML [id number] 06/13/22 10:35 ML Document 06/20/22 09:26 AK [id number] 06/20/22 09:29 AK 06/13/22 06/20/22 10:31 09:26 - Today's Visit Information Type of service Follow-up Visit Follow-up Visit (Physician/HYDROLOGY TECHNICIAN (Physician/HYDROLOGY TECHNICIAN ) ) Arrival Mode Ambulatory Ambulatory Patient Identification Verified (Name & Yes Yes ) Patient Requires Transmission-Based No No Precautions Safety Precautions NA Height and Weight Body Mass Index (BMI) 26.3 26.3 BMI Classification Overweight Overweight Vital Signs Temperature (97.8 F-99.1 F) 97.4 F L 84 F L Temperature Source Temporal Temporal Pulse Rate (60-100) 66 84 Pulse Location Monitor Blood Pressure (90/60-120/80) 136/72 H 159/55 H Blood Pressure Mean (mm Hg) 93 89 Source Monitor Monitor History Since Last Visit- (Skip if this is Patient's initial visit) Have you changed medications since your No No last visit? Any new allergies or adverse reactions No No Had a fall/change in ADL's that may No No increase risk of falls Signs or symptoms of abuse and/or No No neglect since last visit Have you been in the hospital since your No No last visit? Has dressing in place as prescribed No Yes Has compression in place as prescribed N/A Yes Has offloadiing in place as prescribed N/A N/A Experienced any changes in pain level or No No management Left Footwear Regular Shoe Regular Shoe Right Footwear Regular Shoe Regular Shoe Pain Scale: 0-10 Numeric Is Patient Pain Free? Yes Yes WC - Nurse 1 - General Ulcer Measurement Start: 06/13/22 10:31 Freq: Status: Active Protocol: Activity Type Activity Date Activity User E-sign Co-sign Detail Recorded Client Recorded Date Recorded By Document 06/13/22 10:31 ML [id number] 06/13/22 10:35 ML Document 06/20/22 09:26 AK [id number] 06/20/22 09:29 AK 06/13/22 06/20/22 10:31 09:26 Wound Center Nurse 1 #1 R anterior ankle -Combined with other wound No -Current Size (cm) - Length 0.1 -Current Size (cm) - Width 0.1 -Current Size (cm) - Depth 0.1 -Total Square Cm 0.01 -Date of Last Picture (Recall this 06/13/22 field) -Photo Taken Yes -Tunneling No -Undermining/Tunneling No -Circular Undermining No -Change in Wound Grade/Stage No -Exudate Amt None Present -Wound Margin Distinct, Outline Attached -Granulation Amt None Present (0 %) -Granulation Quality N/A -Slough/Fibrin No -Necrosis Amt None Present (0 %) -Structure Exposed N/A -Texture (Chitra-wound Skin Appearance) No Abnormality, Assessed -Moisture (Chitra-wound Skin Appearance) No Abnormality, Assessed -Color (Chitra-wound Skin Appearance) No Abnormality, Assessed -Temperature (Chitra-wound Skin No Abnormality Appearance) (Pt Warm) -Tenderness on Palpation (Chitra-wound No Skin Appearance) -Ulcer Cleansing Soap and Water -Foul Odor after Cleansing No -Anesthetic Used 5% Lidocaine Gel -Wound Comment(s) scabbed areas ( 3) #2 R POST LE -Combined with other wound No -Current Size (cm) - Length 1 0.5 -Current Size (cm) - Width 1.3 0.8 -Current Size (cm) - Depth 0.2 0.4 -Total Square Cm 1.3 0.40 -Date of Last Picture (Recall this 06/13/22 field) -Photo Taken Yes Yes -Tunneling No No -Undermining/Tunneling No No -Circular Undermining No No -Change in Wound Grade/Stage No No -Exudate Amt Medium None Present -Exudate Type Serosanguineous -Wound Margin Distinct, Distinct, Outline Outline Attached Attached -Granulation Amt Medium (34-66%) Medium (34-66%) -Granulation Quality Maramec Maramec -Slough/Fibrin Yes Yes -Necrosis Amt Medium (34-66%) Medium (34-66%) -Necrotic Tissue Type Adherent Slough Adherent Slough -Structure Exposed N/A N/A -Texture (Chitra-wound Skin Appearance) No Abnormality, No Abnormality, Assessed Assessed -Moisture (Chitra-wound Skin Appearance) No Abnormality, No Abnormality, Assessed Assessed -Color (Chitra-wound Skin Appearance) No Abnormality, No Abnormality, Assessed Assessed -Temperature (Chitra-wound Skin No Abnormality No Abnormality Appearance) (Pt Warm) (Pt Warm) -Tenderness on Palpation (Chitra-wound No No Skin Appearance) -Ulcer Cleansing Soap and Water Rinsed/ Irrigated with Saline -Foul Odor after Cleansing No No -Anesthetic Used 5% Lidocaine 5% Lidocaine Gel Gel Lower Limb Edema Present No Right Calf (cm) 22 30 Right Ankle (cm) 22 Right Foot (cm) 29.5 WC - Nurse 2 - General Ulcer CM Notes Start: 06/13/22 10:31 Freq: Status: Active Protocol: Activity Type Activity Date Activity User E-sign Co-sign Detail Recorded Client Recorded Date Recorded By Document 06/13/22 11:47 PL [id number] 06/13/22 11:49 PL 06/13/22 11:47 Wound Center Nurse 2 #1 R anterior ankle -Procedure Performed No -Wound/Ulcer Outcome Healed- Epithelialized #2 R POST LE -Time 11:02 -Correct Patient Yes -Correct Side, Site, Position Yes -Correct Procedure Yes -Procedure Performed Yes -Type of Procedure Debridement -Clinical Debridement Subcutaneous -Tissue Removed Subcutaneous -Post Debridement (cm) - Length 0.7 -Post Debridement (cm) - Width 0.9 -Post Debridement (cm) - Depth 0.1 -Total Square (Post) (cm) 0.63 -Area of Debridement (cm) - Length 0.7 -Area of Debridement (cm) - Width 0.9 -Total Square (Area) (cm) 0.63 -Tunneling No -Undermining/Tunneling No -Circular Undermining No -Wound/Ulcer Outcome Not Healed -Ulcer Cleansing Rinsed/ Irrigated with Saline -Foul Odor after Cleansing No -Bioengineered Tissue Yes -Type of Bioengineered Tissue Theraskin -Expiration Date 09/13/24 -Product Lot Number [id number] -Percent Used 100 -Bleeding Controlled with Pressure -Treatment Response Procedure Tolerated Well -Debridement - Subq, 1st 20sq cm No -Apply Skin Sub - 1st 25 sq cm - Legs 1 -Theraskin (per sq cm) 3 Pain Scale: 0-10 Numeric Is Patient Pain Free? Yes - Nurse 3 - General Ulcer D/C NN Start: 06/13/22 10:31 Freq: Status: Active Protocol: Activity Type Activity Date Activity User E-sign Co-sign Detail Recorded Client Recorded Date Recorded By Document 06/13/22 11:16 [place] [id number] 06/13/22 11:17 [place] 06/13/22 11:16 Wound Care Center Nurse 3 #1 R anterior ankle -Ulcer Cleansing Not Cleansed -Foul Odor after Cleansing No -Negative Pressure Wound Therapy N/A -Primary Dressing Covered/Secured with Dry Gauze & Roll Gauze, Secured with Tape #2 R POST LE -Ulcer Cleansing Not Cleansed -Foul Odor after Cleansing No -Negative Pressure Wound Therapy N/A -Primary Dressing Covered/Secured with Dry Gauze & Roll Gauze, Secured with Tape Pain Scale: 0-10 Numeric Is Patient Pain Free? Yes - Visit Discharge Discharge Condition Stable Ambulatory Status Ambulatory Transportation Private Auto Medication Reconcilliation completed & Yes provided to patient/care provider Clinical Summary of Care Provided Yes Additional Wound Wound debrided: Right lateral ankle Laterality: Right Wound Grade/Stage: Mustafa stage I Type of Debridement: Excisional debridement Anesthesia Used: 5% Lidocaine Gel Depth: Down to and including healthy tissue and in the subcutaneous layer Percentage of wound debrided: 100 Instrument Used: 3mm curette Tissue Removed: Fibrous, devitalized subcutaneous, biofilm, slough Severity: Fat Layer Exposed Amount of bleeding with debridement: Mild Bleeding Controlled with: Compression and gauze Patient tolerated procedure: Patient tolerated procedure well Assessment/Plan Assessment/Plan (1) Non-pressure chronic ulcer of right calf with fat layer exposed: CODE(S): L97.212 - Non-pressure chronic ulcer of right calf with fat layer exposed (2) Raynaud disease: CODE(S): I73.00 - Raynaud's syndrome without gangrene (3) Bilateral lower extremity edema: CODE(S): R60.0 - Localized edema (4) Hypogammaglobulinemia, acquired: CODE(S): D80.1 - Nonfamilial hypogammaglobulinemia (5) HLD (hyperlipidemia): CODE(S): E78.5 - Hyperlipidemia, unspecified QUALIFIERS: Hyperlipidemia type: pure hypercholesterolemia Qualified Code(s): E78.00 - Pure hypercholesterolemia, unspecified; E78.0 - Pure hypercholesterolemia (6) Chronic diastolic (congestive) heart failure: CODE(S): I50.32 - Chronic diastolic (congestive) heart failure (7) Essential (primary) hypertension: CODE(S): I10 - Essential (primary) hypertension PLAN: Plan Patient seen and evaluated Ulceration to the right lateral ankle underwent debridement as noted in clinical panel above. Ulceration measures 0.3 cm x 0.4 cm x 0.1 cm. Ulceration demonstrates no signs of infection. Ulceration was dressed with collagen powder, hydrogel, and dry sterile dressing. She may change this dressing daily. Ulceration noted to the posterior aspect of the right lower extremity overlying the distal aspect of the Achilles tendon.? States ulceration is related to shoe gear irritation.? Ulceration underwent debridement as noted in the clinical panel above.? Ulceration measures 0.5 cm x 0.9 cm x 0.2 cm.? Ulceration demonstrates no signs of infection.? Ulceration has decreased in size versus previous visit. She has been approved for advanced wound care product.? Collagen powder was packed into the wound bed along with TheraSkin #3 applied to the wound bed with Adaptic touch and Steri-Strips with dry sterile dressing.? She is to change the outer dressings as needed.? She was instructed to not get the site wet. I discussed with her today that the ulceration is in close proximity to the Achilles tendon and this may complicate healing should she get an infection.? She voices understanding of this. Discussed continued use of Tubigrip compression and elevation of lower extremities at all times of rest to aid in edema control. I discussed the signs and symptoms of infection with her today.? She was instructed that if she gets any increasing redness about the wound margins extending up the back of her leg, any purulent drainage from the wound site, increasing foul odor, or if she experiences any fever greater than 101 degree, nausea, vomiting, or chills that these are signs of a progressing infection and she needs to report to the ED.? She voices understanding of this today. The following work up and care recommendations were made: Dressing: TheraSkin, Adaptic touch, Steri-Strips, and dry sterile dressing Wash: Do not get wet Tissue growth optimization: TheraSkin Offload: Ensure the back of the leg is not in direct contact with chair/recliner and remains padded by pillows offloading at all times of rest Vascular: Patient does have adequate DP and PT pulse pulses.? Capillary fill time is adequate to the digits Edema: Continued elevation of the lower extremities at times of rest and Tubigrip compression stocking Infection: No signs of infection Pain: May take [id number] Tylenol extra strength for pain Host factors: Advanced age, edema, Raynaud's/vascular disease ? I answered all the patient's questions.? To return to the wound healing center in 1 week or call sooner if the patient has any questions or concerns.
--- NOTE | 2022-06-27 08:14 | PN.PCM_ITS ---
History of Present Illness Date of Service: 06/27/22 Chief Complaint: Right lower extremity wound History of Wound: Patient is an 86-year-old female with history of atherosclerotic disease, peripheral vascular disease, Raynaud's, hyperlipidemia who presented to Dr. Dang office with new wound to the posterior aspect of her right lower extremity secondary to shoe gear rubbing against the back of her leg. States that she was placed on an antibiotic and had been applying antibiotic ointment to the wound. She was seen by me in office last week for her debridement of nails. She stated that she would be seen in the wound care center next week and thus I have not started treatment of the right lower extremity wound performing debridement of the wound in office. She states wound has been present for only a few weeks without improvement prior to seeking care. Subjective Subjective This is an 86-year-old female who presents to the wound care center for follow- up of a right lower extremity posterior leg wound.? She has been changing the outer dressings to the site daily.? She has been ensuring that her shoe gear is not rubbing against the back of the leg or the end of the chair does not contact leg at rest. He is wearing open back shoes to help with this.? She denies constitutional symptoms today.? She has no further complaints today. Objective Data Objective Data Vital Signs: Vital Signs Temp Pulse Resp BP 84 F L 84 16 159/55 H 06/20/22 09:26 06/20/22 09:26 06/12/22 00:34 06/20/22 09:26 Weight: 76.204 kg Body Mass Index (BMI) 26.3 Physical Exam Const alert, oriented x3 and no apparent distress General Appearance: cooperative HEENT normocephalic Eyes General Eye: normal appearance of both eyes Neck General: normal visual inspection Lymph Lymphatic: no lymphadenopathy noted and no lymphedema noted Resp normal respiratory effort Cardio regular rate and regular rhythm Extremity normal capillary refill, no joint enlargement, no calf tenderness and no pedal edema Extremity Narrative: DP and PT pulses weakly palpable.? CFT < 5 seconds and adequate to the digits.? There is bilateral lower extremity edema +2 pitting with purplish discoloration of the entire lower extremity secondary to her peripheral vascular disease and Raynaud's.? There is a wound noted to the posterior right lower extremity overlying the Achilles tendon distally secondary to the heel cup of the shoe rubbing the back of the leg. Skin no rashes or lesions noted, skin turgor normal and no jaundice Wound Narrative: There is a wound noted to the posterior aspect of the right lower extremity at the distal aspect of the Achilles tendon secondary to shoe heel cup rubbing the back of her lower extremity.? Wound base demonstrates fibrogranular tissue however site is close to the Achilles tendon.? No purulent drainage, no malodor, no palpable fluctuance/bogginess, no visible abscess noted.? No signs of infection. Neuro moves all extremities Debridement Note Debridement Note Wound debrided: Right posterior leg Laterality: Right Wound Grade/Stage: Mustafa stage II Type of Debridement: Excisional debridement Anesthesia Used: 5% Lidocaine Gel Depth: Down to and including healthy tissue and in the subcutaneous layer Percentage of wound debrided: 100 Instrument Used: 3mm curette Tissue Removed: Fibrous, devitalized subcutaneous, biofilm, slough Severity: Fat Layer Exposed Amount of bleeding with debridement: Mild Bleeding Controlled with: Compression and gauze Patient tolerated procedure: Patient tolerated procedure well Post-Debridement Measurements and Additional Note: Post-Debridement Measurements/Treatment - Nurse 1 - General Ulcer Assessment Start: 06/13/22 10:31 Freq: Status: Active Protocol: JO.SILVIA Activity Type Activity Date Activity User E-sign Co-sign Detail Recorded Client Recorded Date Recorded By Document 06/13/22 10:31 ML [id number] 06/13/22 10:35 ML Document 06/20/22 09:26 MT [id number] 06/20/22 09:29 MT 06/13/22 06/20/22 10:31 09:26 - Today's Visit Information Type of service Follow-up Visit Follow-up Visit (Physician/DITCHER (Physician/DITCHER ) ) Arrival Mode Ambulatory Ambulatory Patient Identification Verified (Name & Yes Yes ) Patient Requires Transmission-Based No No Precautions Safety Precautions NA Height and Weight Body Mass Index (BMI) 26.3 26.3 BMI Classification Overweight Overweight Vital Signs Temperature (97.8 F-99.1 F) 97.4 F L 84 F L Temperature Source Temporal Temporal Pulse Rate (60-100) 66 84 Pulse Location Monitor Blood Pressure (90/60-120/80) 136/72 H 159/55 H Blood Pressure Mean (mm Hg) 93 89 Source Monitor Monitor History Since Last Visit- (Skip if this is Patient's initial visit) Have you changed medications since your No No last visit? Any new allergies or adverse reactions No No Had a fall/change in ADL's that may No No increase risk of falls Signs or symptoms of abuse and/or No No neglect since last visit Have you been in the hospital since your No No last visit? Has dressing in place as prescribed No Yes Has compression in place as prescribed N/A Yes Has offloadiing in place as prescribed N/A N/A Experienced any changes in pain level or No No management Left Footwear Regular Shoe Regular Shoe Right Footwear Regular Shoe Regular Shoe Pain Scale: 0-10 Numeric Is Patient Pain Free? Yes Yes WC - Nurse 1 - General Ulcer Measurement Start: 06/13/22 10:31 Freq: Status: Active Protocol: Activity Type Activity Date Activity User E-sign Co-sign Detail Recorded Client Recorded Date Recorded By Document 06/13/22 10:31 ML [id number] 06/13/22 10:35 ML Document 06/20/22 09:26 AK [id number] 06/20/22 09:29 AK 06/13/22 06/20/22 10:31 09:26 Wound Center Nurse 1 #1 R anterior ankle -Combined with other wound No -Current Size (cm) - Length 0.1 -Current Size (cm) - Width 0.1 -Current Size (cm) - Depth 0.1 -Total Square Cm 0.01 -Date of Last Picture (Recall this 06/13/22 field) -Photo Taken Yes -Tunneling No -Undermining/Tunneling No -Circular Undermining No -Change in Wound Grade/Stage No -Exudate Amt None Present -Wound Margin Distinct, Outline Attached -Granulation Amt None Present (0 %) -Granulation Quality N/A -Slough/Fibrin No -Necrosis Amt None Present (0 %) -Structure Exposed N/A -Texture (Chitra-wound Skin Appearance) No Abnormality, Assessed -Moisture (Chitra-wound Skin Appearance) No Abnormality, Assessed -Color (Chitra-wound Skin Appearance) No Abnormality, Assessed -Temperature (Chitra-wound Skin No Abnormality Appearance) (Pt Warm) -Tenderness on Palpation (Chitra-wound No Skin Appearance) -Ulcer Cleansing Soap and Water -Foul Odor after Cleansing No -Anesthetic Used 5% Lidocaine Gel -Wound Comment(s) scabbed areas ( 3) #2 R Med LE -Combined with other wound No -Current Size (cm) - Length 1 0.5 -Current Size (cm) - Width 1.3 0.8 -Current Size (cm) - Depth 0.2 0.4 -Total Square Cm 1.3 0.40 -Date of Last Picture (Recall this 06/13/22 field) -Photo Taken Yes Yes -Tunneling No No -Undermining/Tunneling No No -Circular Undermining No No -Change in Wound Grade/Stage No No -Exudate Amt Medium None Present -Exudate Type Serosanguineous -Wound Margin Distinct, Distinct, Outline Outline Attached Attached -Granulation Amt Medium (34-66%) Medium (34-66%) -Granulation Quality [place] -Slough/Fibrin Yes Yes -Necrosis Amt Medium (34-66%) Medium (34-66%) -Necrotic Tissue Type Adherent Slough Adherent Slough -Structure Exposed N/A N/A -Texture (Chitra-wound Skin Appearance) No Abnormality, No Abnormality, Assessed Assessed -Moisture (Chitra-wound Skin Appearance) No Abnormality, No Abnormality, Assessed Assessed -Color (Chitra-wound Skin Appearance) No Abnormality, No Abnormality, Assessed Assessed -Temperature (Chitra-wound Skin No Abnormality No Abnormality Appearance) (Pt Warm) (Pt Warm) -Tenderness on Palpation (Chitra-wound No No Skin Appearance) -Ulcer Cleansing Soap and Water Rinsed/ Irrigated with Saline -Foul Odor after Cleansing No No -Anesthetic Used 5% Lidocaine 5% Lidocaine Gel Gel Lower Limb Edema Present No Right Calf (cm) 22 30 Right Ankle (cm) 22 Right Foot (cm) 29.5 WC - Nurse 2 - General Ulcer CM Notes Start: 06/13/22 10:31 Freq: Status: Active Protocol: Activity Type Activity Date Activity User E-sign Co-sign Detail Recorded Client Recorded Date Recorded By Document 06/13/22 11:47 PL [id number] 06/13/22 11:49 PL Document 06/20/22 11:37 PL [id number] 06/20/22 11:44 PL 06/13/22 06/20/22 11:47 11:37 Wound Center Nurse 2 #1 R anterior ankle -Procedure Performed No -Wound/Ulcer Outcome Healed- Epithelialized #3 R Lat LE -Time 09:39 -Correct Patient Yes -Correct Side, Site, Position Yes -Correct Procedure Yes -Procedure Performed Yes -Type of Procedure Debridement -Clinical Debridement Subcutaneous -Tissue Removed Subcutaneous -Post Debridement (cm) - Length 0.3 -Post Debridement (cm) - Width 0.4 -Post Debridement (cm) - Depth 0.1 -Total Square (Post) (cm) 0.12 -Area of Debridement (cm) - Length 0.3 -Area of Debridement (cm) - Width 0.4 -Total Square (Area) (cm) 0.12 -Tunneling No -Undermining/Tunneling No -Circular Undermining No -Wound/Ulcer Outcome Not Healed -Ulcer Cleansing Rinsed/ Irrigated with Saline -Foul Odor after Cleansing No -Bioengineered Tissue No -Bleeding Controlled with Pressure -Treatment Response Procedure Tolerated Well -Debridement - Subq, 1st 20sq cm Yes #2 R [facility] LE -Time 11:02 09:39 -Correct Patient Yes Yes -Correct Side, Site, Position Yes Yes -Correct Procedure Yes Yes -Procedure Performed Yes Yes -Type of Procedure Debridement Debridement -Clinical Debridement Subcutaneous Subcutaneous -Tissue Removed Subcutaneous Subcutaneous -Post Debridement (cm) - Length 0.7 0.5 -Post Debridement (cm) - Width 0.9 0.9 -Post Debridement (cm) - Depth 0.1 0.1 -Total Square (Post) (cm) 0.63 0.45 -Area of Debridement (cm) - Length 0.7 0.5 -Area of Debridement (cm) - Width 0.9 0.9 -Total Square (Area) (cm) 0.63 0.45 -Tunneling No No -Undermining/Tunneling No No -Circular Undermining No No -Wound/Ulcer Outcome Not Healed Not Healed -Ulcer Cleansing Rinsed/ Rinsed/ Irrigated with Irrigated with Saline Saline -Foul Odor after Cleansing No No -Bioengineered Tissue Yes Yes -Type of Bioengineered Tissue Theraskin Theraskin -Expiration Date 09/13/24 09/25/24 -Product Lot Number [id number] -Percent Used 100 100 -Bleeding Controlled with Pressure Pressure -Treatment Response Procedure Procedure Tolerated Well Tolerated Well -Debridement - Subq, 1st 20sq cm No No -Apply Skin Sub - 1st 25 sq cm - Legs 1 1 -Theraskin (per sq cm) 3 3 Pain Scale: 0-10 Numeric Is Patient Pain Free? Yes Yes - Nurse 3 - General Ulcer D/C NN Start: 06/13/22 10:31 Freq: Status: Active Protocol: Activity Type Activity Date Activity User E-sign Co-sign Detail Recorded Client Recorded Date Recorded By Document 06/13/22 11:16 MT [id number] 06/13/22 11:17 AK Document 06/20/22 12:03 AK [id number] 06/20/22 12:04 AK 06/13/22 06/20/22 11:16 12:03 Wound Care Center Nurse 3 #1 R anterior ankle -Ulcer Cleansing Not Cleansed -Foul Odor after Cleansing No -Negative Pressure Wound Therapy N/A -Primary Dressing Covered/Secured with Dry Gauze & Roll Gauze, Secured with Tape #3 R Lat LE -Ulcer Cleansing Not Cleansed -Foul Odor after Cleansing No -Negative Pressure Wound Therapy N/A -Primary Dressing Covered/Secured with Dry Gauze & Roll Gauze, Secured with Tape #2 R Med LE -Ulcer Cleansing Not Cleansed Not Cleansed -Foul Odor after Cleansing No No -Negative Pressure Wound Therapy N/A N/A -Primary Dressing Covered/Secured with Dry Gauze & Dry Gauze & Roll Gauze, Roll Gauze, Secured with Secured with Tape Tape Pain Scale: 0-10 Numeric Is Patient Pain Free? Yes No WC - Visit Discharge Discharge Condition Stable Stable Ambulatory Status Ambulatory Ambulatory Transportation Private Auto Private Auto Medication Reconcilliation completed & Yes Yes provided to patient/care provider Clinical Summary of Care Provided Yes Yes Additional Wound Wound debrided: Right lateral leg Laterality: Right Wound Grade/Stage: Mustafa stage I Type of Debridement: Excisional debridement Anesthesia Used: 5% Lidocaine Gel Depth: Down to and including healthy tissue and in the subcutaneous layer Percentage of wound debrided: 100 Instrument Used: 3mm curette Tissue Removed: Fibrous, devitalized subcutaneous, biofilm, slough Severity: Fat Layer Exposed Amount of bleeding with debridement: Mild Bleeding Controlled with: Compression and gauze Patient tolerated procedure: Patient tolerated procedure well Assessment/Plan Assessment/Plan (1) Non-pressure chronic ulcer of right calf with fat layer exposed: CODE(S): L97.212 - Non-pressure chronic ulcer of right calf with fat layer exposed (2) Raynaud disease: CODE(S): I73.00 - Raynaud's syndrome without gangrene (3) Bilateral lower extremity edema: CODE(S): R60.0 - Localized edema (4) Hypogammaglobulinemia, acquired: CODE(S): D80.1 - Nonfamilial hypogammaglobulinemia (5) HLD (hyperlipidemia): CODE(S): E78.5 - Hyperlipidemia, unspecified QUALIFIERS: Hyperlipidemia type: pure hypercholesterolemia Qualified Code(s): E78.00 - Pure hypercholesterolemia, unspecified; E78.0 - Pure hypercholesterolemia (6) Chronic diastolic (congestive) heart failure: CODE(S): I50.32 - Chronic diastolic (congestive) heart failure (7) Essential (primary) hypertension: CODE(S): I10 - Essential (primary) hypertension PLAN: Plan Patient seen and evaluated Ulceration to the right lateral ankle underwent debridement as noted in clinical panel above. Ulceration measures 0.5 cm x 0.5 cm x 0.1 cm. Ulceration demonstrates no signs of infection. Ulceration was dressed with collagen powder, hydrogel, and dry sterile dressing. She may change this dressing daily. Ulceration noted to the posterior aspect of the right lower extremity overlying the distal aspect of the Achilles tendon.? States ulceration is related to shoe gear irritation.? Ulceration underwent debridement as noted in the clinical panel above.? Ulceration measures 0.5 cm x 0.9 cm x 0.2 cm.? Ulceration demonstrates no signs of infection.? Ulceration has decreased in size versus previous visit. She has been approved for advanced wound care product.? Collagen powder was packed into the wound bed along with TheraSkin #4 applied to the wound bed with Adaptic touch and Steri-Strips with dry sterile dressing.? She is to change the outer dressings as needed.? She was instructed to not get the site wet. I discussed with her today that the ulceration is in close proximity to the Achilles tendon and this may complicate healing should she get an infection.? She voices understanding of this. Discussed continued use of Tubigrip compression and elevation of lower extremities at all times of rest to aid in edema control. I discussed the signs and symptoms of infection with her today.? She was instructed that if she gets any increasing redness about the wound margins extending up the back of her leg, any purulent drainage from the wound site, increasing foul odor, or if she experiences any fever greater than 101 degree, nausea, vomiting, or chills that these are signs of a progressing infection and she needs to report to the ED.? She voices understanding of this today. The following work up and care recommendations were made: Dressing: TheraSkin, Adaptic touch, Steri-Strips, and dry sterile dressing Wash: Do not get wet Tissue growth optimization: TheraSkin Offload: Ensure the back of the leg is not in direct contact with chair/recliner and remains padded by pillows offloading at all times of rest Vascular: Patient does have adequate DP and PT pulse pulses.? Capillary fill time is adequate to the digits Edema: Continued elevation of the lower extremities at times of rest and Tubigrip compression stocking Infection: No signs of infection Pain: May take [id number] Tylenol extra strength for pain Host factors: Advanced age, edema, Raynaud's/vascular disease ? I answered all the patient's questions.? To return to the wound healing center in 1 week or call sooner if the patient has any questions or concerns.
[2022-06-27 08:16] VITALS: BP 157/74; PULSE 92; RESP 18; TEMP 35.6; BMI 26.3
--- NOTE | 2022-07-04 08:20 | PCM.WC.PN ---
History of Present Illness Date of Service: 07/04/22 Chief Complaint: Right lower extremity wound History of Wound: Patient is an 86-year-old female with history of atherosclerotic disease, peripheral vascular disease, Raynaud's, hyperlipidemia who presented to Dr. Dang office with new wound to the posterior aspect of her right lower extremity secondary to shoe gear rubbing against the back of her leg. States that she was placed on an antibiotic and had been applying antibiotic ointment to the wound. She was seen by me in office last week for her debridement of nails. She stated that she would be seen in the wound care center next week and thus I have not started treatment of the right lower extremity wound performing debridement of the wound in office. She states wound has been present for only a few weeks without improvement prior to seeking care. Subjective Subjective This is an 86-year-old female who presents to the wound care center for follow-up of a right lower extremity posterior leg wound.? She has been changing the outer dressings to the site daily.? Continues to wear open back shoes for offloading of site.? She denies constitutional symptoms today.? She has no further complaints today. Objective Data Objective Data Vital Signs: Vital Signs Temp Pulse Resp BP 96.1 F L 92 18 157/74 H 06/27/22 08:16 06/27/22 08:16 06/27/22 08:16 06/27/22 08:16 Weight: 76.204 kg Body Mass Index (BMI) 26.3 Physical Exam Const alert, oriented x3 and no apparent distress General Appearance: cooperative HEENT normocephalic Eyes General Eye: normal appearance of both eyes Neck General: normal visual inspection Lymph Lymphatic: no lymphadenopathy noted and no lymphedema noted Resp normal respiratory effort Cardio regular rate and regular rhythm Extremity normal capillary refill, no joint enlargement, no calf tenderness and no pedal edema Extremity Narrative: DP and PT pulses weakly palpable.? CFT < 5 seconds and adequate to the digits.? There is bilateral lower extremity edema +2 pitting with purplish discoloration of the entire lower extremity secondary to her peripheral vascular disease and Raynaud's.? There is a wound noted to the posterior right lower extremity overlying the Achilles tendon distally secondary to the heel cup of the shoe rubbing the back of the leg. Skin no rashes or lesions noted, skin turgor normal and no jaundice Wound Narrative: There is a wound noted to the posterior aspect of the right lower extremity at the distal aspect of the Achilles tendon secondary to shoe heel cup rubbing the back of her lower extremity.? Wound base demonstrates fibrogranular tissue however site is close to the Achilles tendon.? No purulent drainage, no malodor, no palpable fluctuance/bogginess, no visible abscess noted.? No signs of infection. Neuro moves all extremities Debridement Note Debridement Note Wound debrided: Right posterior lower extremity Laterality: Right Wound Grade/Stage: Mustafa stage II Type of Debridement: Excisional debridement Anesthesia Used: 5% Lidocaine Gel Depth: Down to and including healthy tissue and in the subcutaneous layer Percentage of wound debrided: 100 Instrument Used: 3mm curette Tissue Removed: Fibrous, devitalized subcutaneous, biofilm, slough Severity: Fat Layer Exposed Amount of bleeding with debridement: Mild Bleeding Controlled with: Compression and gauze Patient tolerated procedure: Patient tolerated procedure well Post-Debridement Measurements and Additional Note: Post-Debridement Measurements/Treatment - Nurse 1 - General Ulcer Assessment Start: 06/13/22 10:31 Freq: Status: Active Protocol: ARNOLDO Activity Type Activity Date Activity User E-sign Co-sign Detail Recorded Client Recorded Date Recorded By Document 06/13/22 10:31 ML [id number] 06/13/22 10:35 ML Document 06/20/22 09:26 AK [id number] 06/20/22 09:29 AK Document 06/27/22 08:16 [id number] 06/27/22 08:22 JF 06/13/22 06/20/22 06/27/22 10:31 09:26 08:16 - Today's Visit Information Type of service Follow-up Visit Follow-up Visit Follow-up Visit (Physician/SERVICENOW ADMINISTRATOR DEVELOPER (Physician/SERVICENOW ADMINISTRATOR DEVELOPER (Physician/SERVICENOW ADMINISTRATOR DEVELOPER ) ) ) Arrival Mode Ambulatory Ambulatory Ambulatory,Cane Transfer Assistance Manual Patient Identification Verified (Name & Yes Yes Yes ) Patient Requires Transmission-Based No No No Precautions Safety Precautions NA Height and Weight Body Mass Index (BMI) 26.3 26.3 26.3 BMI Classification Overweight Overweight Overweight Vital Signs Temperature (97.8 F-99.1 F) 97.4 F L 84 F L 96.1 F L Temperature Source Temporal Temporal Temporal Pulse Rate (60-100) 66 84 92 Pulse Location Monitor Respiratory Rate (12-18) 18 Respiratory rate source Observation Blood Pressure (90/60-120/80) 136/72 H 159/55 H 157/74 H Blood Pressure Mean (mm Hg) 93 89 101 Source Monitor Monitor Monitor Position Semi-Fowlers Blood Pressure Location Right Arm History Since Last Visit- (Skip if this is Patient's initial visit) Have you changed medications since your No No No last visit? Any new allergies or adverse reactions No No No Had a fall/change in ADL's that may No No No increase risk of falls Signs or symptoms of abuse and/or No No No neglect since last visit Have you been in the hospital since your No No No last visit? Has dressing in place as prescribed No Yes Yes Has compression in place as prescribed N/A Yes Yes Has offloadiing in place as prescribed N/A N/A N/A Experienced any changes in pain level or No No No management Left Footwear Regular Shoe Regular Shoe Regular Shoe Right Footwear Regular Shoe Regular Shoe Regular Shoe Pain Scale: 0-10 Numeric Is Patient Pain Free? Yes Yes Yes - Nurse 1 - General Ulcer Measurement Start: 06/13/22 10:31 Freq: Status: Active Protocol: Activity Type Activity Date Activity User E-sign Co-sign Detail Recorded Client Recorded Date Recorded By Document 06/13/22 10:31 ML [id number] 06/13/22 10:35 ML Document 06/20/22 09:26 AK [id number] 06/20/22 09:29 AK Document 06/27/22 08:16 [id number] 06/27/22 08:22 JF 06/13/22 06/20/22 06/27/22 10:31 09:26 08:16 Wound Center Nurse 1 #1 R anterior ankle -Combined with other wound No -Current Size (cm) - Length 0.1 -Current Size (cm) - Width 0.1 -Current Size (cm) - Depth 0.1 -Total Square Cm 0.01 -Date of Last Picture (Recall this 06/13/22 field) -Photo Taken Yes -Tunneling No -Undermining/Tunneling No -Circular Undermining No -Change in Wound Grade/Stage No -Exudate Amt None Present -Wound Margin Distinct, Outline Attached -Granulation Amt None Present (0 %) -Granulation Quality N/A -Slough/Fibrin No -Necrosis Amt None Present (0 %) -Structure Exposed N/A -Texture (Chitra-wound Skin Appearance) No Abnormality, Assessed -Moisture (Chitra-wound Skin Appearance) No Abnormality, Assessed -Color (Chitra-wound Skin Appearance) No Abnormality, Assessed -Temperature (Chitra-wound Skin No Abnormality Appearance) (Pt Warm) -Tenderness on Palpation (Chitra-wound No Skin Appearance) -Ulcer Cleansing Soap and Water -Foul Odor after Cleansing No -Anesthetic Used 5% Lidocaine Gel -Wound Comment(s) scabbed areas ( 3) #3 R Lat LE -Combined with other wound No -Current Size (cm) - Length 0.6 -Current Size (cm) - Width 0.6 -Current Size (cm) - Depth 0.1 -Total Square Cm 0.36 -Photo Taken Yes -Epithelialization Small 1-33% -Tunneling No -Undermining/Tunneling No -Circular Undermining No -Exudate Amt None Present -Wound Margin Indistinct, Non -Visible -Granulation Amt None Present (0 %) -Slough/Fibrin Yes -Necrosis Amt Large (67-100%) -Necrotic Tissue Type Adherent Slough -Structure Exposed N/A -Texture (Chitra-wound Skin Appearance) Assessed -Moisture (Chitra-wound Skin Appearance) Assessed,Dry/ Scaly -Color (Chitra-wound Skin Appearance) Assessed -Temperature (Chitra-wound Skin No Abnormality Appearance) (Pt Warm) -Tenderness on Palpation (Chitra-wound No Skin Appearance) -Ulcer Cleansing Rinsed/ Irrigated with Saline -Foul Odor after Cleansing No -Anesthetic Used 5% Lidocaine Gel #2 R Med LE -Combined with other wound No No -Current Size (cm) - Length 1 0.5 0.8 -Current Size (cm) - Width 1.3 0.8 1.0 -Current Size (cm) - Depth 0.2 0.4 0.2 -Total Square Cm 1.3 0.40 0.80 -Date of Last Picture (Recall this 06/13/22 field) -Photo Taken Yes Yes Yes -Epithelialization Small 1-33% -Tunneling No No No -Undermining/Tunneling No No No -Circular Undermining No No No -Change in Wound Grade/Stage No No -Exudate Amt Medium None Present None Present -Exudate Type Serosanguineous -Wound Margin Distinct, Distinct, Fibrotic Scar, Outline Outline Thickened Scar Attached Attached -Granulation Amt Medium (34-66%) Medium (34-66%) None Present (0 %) -Granulation Quality [place] -Slough/Fibrin Yes Yes Yes -Necrosis Amt Medium (34-66%) Medium (34-66%) Large (67-100%) -Necrotic Tissue Type Adherent Slough Adherent Slough Adherent Slough -Structure Exposed N/A N/A N/A -Texture (Chitra-wound Skin Appearance) No Abnormality, No Abnormality, Assessed Assessed Assessed -Moisture (Chitra-wound Skin Appearance) No Abnormality, No Abnormality, Assessed,Dry/ Assessed Assessed Scaly -Color (Chitra-wound Skin Appearance) No Abnormality, No Abnormality, Assessed Assessed Assessed -Temperature (Chitra-wound Skin No Abnormality No Abnormality No Abnormality Appearance) (Pt Warm) (Pt Warm) (Pt Warm) -Tenderness on Palpation (Chitra-wound No No No Skin Appearance) -Ulcer Cleansing Soap and Water Rinsed/ Rinsed/ Irrigated with Irrigated with Saline Saline -Foul Odor after Cleansing No No No -Anesthetic Used 5% Lidocaine 5% Lidocaine 5% Lidocaine Gel Gel Gel Lower Limb Edema Present No No Right Calf (cm) 22 30 31.4 Right Ankle (cm) 22 22.0 Right Foot (cm) 29.5 WC - Nurse 2 - General Ulcer CM Notes Start: 06/13/22 10:31 Freq: Status: Active Protocol: Activity Type Activity Date Activity User E-sign Co-sign Detail Recorded Client Recorded Date Recorded By Document 06/13/22 11:47 PL [id number] 06/13/22 11:49 PL Document 06/20/22 11:37 PL [id number] 06/20/22 11:44 PL Document 06/27/22 11:38 PL [id number] 06/27/22 11:41 PL Edit Result 06/27/22 11:38 PL (1) [id number] 06/28/22 07:04 PL (1) #2 R Med LE - Apply Skin Sub - 1st 25 sq cm - Legs => 1 06/13/22 06/20/22 06/27/22 11:47 11:37 11:38 Wound Center Nurse 2 #1 R anterior ankle -Procedure Performed No -Wound/Ulcer Outcome Healed- Epithelialized #3 R Lat LE -Time 09:39 08:34 -Correct Patient Yes Yes -Correct Side, Site, Position Yes Yes -Correct Procedure Yes Yes -Procedure Performed Yes Yes -Type of Procedure Debridement Debridement -Clinical Debridement Subcutaneous Subcutaneous -Tissue Removed Subcutaneous Subcutaneous -Post Debridement (cm) - Length 0.3 0.5 -Post Debridement (cm) - Width 0.4 0.5 -Post Debridement (cm) - Depth 0.1 0.1 -Total Square (Post) (cm) 0.12 0.25 -Area of Debridement (cm) - Length 0.3 0.5 -Area of Debridement (cm) - Width 0.4 0.5 -Total Square (Area) (cm) 0.12 0.25 -Tunneling No No -Undermining/Tunneling No No -Circular Undermining No No -Wound/Ulcer Outcome Not Healed Not Healed -Ulcer Cleansing Rinsed/ Rinsed/ Irrigated with Irrigated with Saline Saline -Foul Odor after Cleansing No No -Bioengineered Tissue No No -Bleeding Controlled with Pressure Pressure -Treatment Response Procedure Procedure Tolerated Well Tolerated Well -Debridement - Subq, 1st 20sq cm Yes No #2 R Med LE -Time 11:02 09:39 08:34 -Correct Patient Yes Yes Yes -Correct Side, Site, Position Yes Yes Yes -Correct Procedure Yes Yes Yes -Procedure Performed Yes Yes Yes -Type of Procedure Debridement Debridement Debridement -Clinical Debridement Subcutaneous Subcutaneous Subcutaneous -Tissue Removed Subcutaneous Subcutaneous Subcutaneous -Post Debridement (cm) - Length 0.7 0.5 0.5 -Post Debridement (cm) - Width 0.9 0.9 0.9 -Post Debridement (cm) - Depth 0.1 0.1 0.1 -Total Square (Post) (cm) 0.63 0.45 0.45 -Area of Debridement (cm) - Length 0.7 0.5 0.5 -Area of Debridement (cm) - Width 0.9 0.9 0.9 -Total Square (Area) (cm) 0.63 0.45 0.45 -Tunneling No No No -Undermining/Tunneling No No No -Circular Undermining No No No -Wound/Ulcer Outcome Not Healed Not Healed Not Healed -Ulcer Cleansing Rinsed/ Rinsed/ Rinsed/ Irrigated with Irrigated with Irrigated with Saline Saline Saline -Foul Odor after Cleansing No No No -Bioengineered Tissue Yes Yes Yes -Type of Bioengineered Tissue Theraskin Theraskin Theraskin -Expiration Date 09/13/24 09/25/24 08/06/26 -Product Lot Number [id number] -Percent Used 100 100 100 -Bleeding Controlled with Pressure Pressure Pressure -Treatment Response Procedure Procedure Procedure Tolerated Well Tolerated Well Tolerated Well -Debridement - Subq, 1st 20sq cm No No No -Apply Skin Sub - 1st 25 sq cm - Legs 1 1 1 -Theraskin (per sq cm) 3 3 3 Pain Scale: 0-10 Numeric Is Patient Pain Free? Yes Yes Yes WC - Nurse 3 - General Ulcer D/C NN Start: 06/13/22 10:31 Freq: Status: Active Protocol: Activity Type Activity Date Activity User E-sign Co-sign Detail Recorded Client Recorded Date Recorded By Document 06/13/22 11:16 OR [id number] 06/13/22 11:17 AK Document 06/20/22 12:03 OR [id number] 06/20/22 12:04 OR Document 06/27/22 08:58 [id number] 06/27/22 09:00 JF 06/13/22 06/20/22 06/27/22 11:16 12:03 08:58 Wound Care Center Nurse 3 #1 R anterior ankle -Ulcer Cleansing Not Cleansed -Foul Odor after Cleansing No -Negative Pressure Wound Therapy N/A -Primary Dressing Covered/Secured with Dry Gauze & Roll Gauze, Secured with Tape #3 R Lat LE -Ulcer Cleansing Not Cleansed Rinsed/ Irrigated with Saline -Foul Odor after Cleansing No No -Negative Pressure Wound Therapy N/A -Primary Dressing Applied C Hydrogel ($), Collagen Powder ($) -Primary Dressing Covered/Secured with Dry Gauze & Dry Gauze,Dry Roll Gauze, Gauze & Roll Secured with Gauze Tape #2 R Med LE -Ulcer Cleansing Not Cleansed Not Cleansed Rinsed/ Irrigated with Saline -Foul Odor after Cleansing No No No -Negative Pressure Wound Therapy N/A N/A -Primary Dressing Covered/Secured with Dry Gauze & Dry Gauze & Dry Gauze & Roll Gauze, Roll Gauze, Roll Gauze Secured with Secured with Tape Tape Pain Scale: 0-10 Numeric Is Patient Pain Free? Yes No Yes WC - Visit Discharge Discharge Condition Stable Stable Stable Ambulatory Status Ambulatory Ambulatory Ambulatory,Cane Transportation Private Auto Private Auto Private Auto Medication Reconcilliation completed & Yes Yes No provided to patient/care provider Clinical Summary of Care Provided Yes Yes No Additional Wound Wound debrided: Right lateral lower extremity Laterality: Right Wound Grade/Stage: Mustafa stage I Type of Debridement: Excisional debridement Anesthesia Used: 5% Lidocaine Gel Depth: Down to and including healthy tissue and in the subcutaneous layer Percentage of wound debrided: 100 Instrument Used: 3mm curette Tissue Removed: Fibrous, devitalized subcutaneous, biofilm, slough Severity: Fat Layer Exposed Amount of bleeding with debridement: Mild Bleeding Controlled with: Compression and gauze Patient tolerated procedure: Patient tolerated procedure well Assessment/Plan Assessment/Plan (1) Non-pressure chronic ulcer of right calf with fat layer exposed: CODE(S): L97.212 - Non-pressure chronic ulcer of right calf with fat layer exposed (2) Raynaud disease: CODE(S): I73.00 - Raynaud's syndrome without gangrene (3) Bilateral lower extremity edema: CODE(S): R60.0 - Localized edema (4) Hypogammaglobulinemia, acquired: CODE(S): D80.1 - Nonfamilial hypogammaglobulinemia (5) HLD (hyperlipidemia): CODE(S): E78.5 - Hyperlipidemia, unspecified QUALIFIERS: Hyperlipidemia type: pure hypercholesterolemia Qualified Code(s): E78.00 - Pure hypercholesterolemia, unspecified; E78.0 - Pure hypercholesterolemia (6) Chronic diastolic (congestive) heart failure: CODE(S): I50.32 - Chronic diastolic (congestive) heart failure (7) Essential (primary) hypertension: CODE(S): I10 - Essential (primary) hypertension PLAN: Plan Patient seen and evaluated Ulceration to the right lateral ankle underwent debridement as noted in clinical panel above. Ulceration measures 0.5 cm x 0.4 cm x 0.1 cm. Ulceration demonstrates no signs of infection. Ulceration was dressed with collagen powder, hydrogel, and dry sterile dressing. She may change this dressing daily. Ulceration noted to the posterior aspect of the right lower extremity overlying the distal aspect of the Achilles tendon.? States ulceration is related to shoe gear irritation.? Ulceration underwent debridement as noted in the clinical panel above.? Ulceration measures 0.5 cm x 0.7 cm x 0.1 cm.? Ulceration demonstrates no signs of infection.? Ulceration has decreased in size versus previous visit. She has been approved for advanced wound care product.? Collagen powder was packed into the wound bed along with TheraSkin #5 applied to the wound bed with Adaptic touch and Steri-Strips with dry sterile dressing.? She is to change the outer dressings as needed.? She was instructed to not get the site wet. Ulcerations continue to demonstrate reduction in size versus previous visit. I discussed with her today that the ulceration is in close proximity to the Achilles tendon and this may complicate healing should she get an infection.? She voices understanding of this. Discussed continued use of Tubigrip compression and elevation of lower extremities at all times of rest to aid in edema control. I discussed the signs and symptoms of infection with her today.? She was instructed that if she gets any increasing redness about the wound margins extending up the back of her leg, any purulent drainage from the wound site, increasing foul odor, or if she experiences any fever greater than 101 degree, nausea, vomiting, or chills that these are signs of a progressing infection and she needs to report to the ED.? She voices understanding of this today. The following work up and care recommendations were made: Dressing: TheraSkin, Adaptic touch, Steri-Strips, and dry sterile dressing Wash: Do not get wet Tissue growth optimization: TheraSkin Offload: Ensure the back of the leg is not in direct contact with chair/recliner and remains padded by pillows offloading at all times of rest Vascular: Patient does have adequate DP and PT pulse pulses.? Capillary fill time is adequate to the digits Edema: Continued elevation of the lower extremities at times of rest and Tubigrip compression stocking Infection: No signs of infection Pain: May take [id number] Tylenol extra strength for pain Host factors: Advanced age, edema, Raynaud's/vascular disease ? I answered all the patient's questions.? To return to the wound healing center in 1 week or call sooner if the patient has any questions or concerns.
[2022-07-04 08:21] VITALS: BP 124/65; PULSE 65; RESP 18; TEMP 35.8; BMI 26.3
[2022-07-11 08:18] VITALS: BP 133/53; PULSE 65; RESP 18; TEMP 35.4; BMI 26.3
--- NOTE | 2022-07-11 08:22 | PN.PCM_ITS ---
History of Present Illness Date of Service: 07/11/22 Chief Complaint: Right lower extremity wound History of Wound: Patient is an 86-year-old female with history of atherosclerotic disease, peripheral vascular disease, Raynaud's, hyperlipidemia who presented to Dr. Dang office with new wound to the posterior aspect of her right lower extremity secondary to shoe gear rubbing against the back of her leg. States that she was placed on an antibiotic and had been applying antibiotic ointment to the wound. She was seen by me in office last week for her debridement of nails. She stated that she would be seen in the wound care center next week and thus I have not started treatment of the right lower extremity wound performing debridement of the wound in office. She states wound has been present for only a few weeks without improvement prior to seeking care. Subjective Subjective This is an 86-year-old female who presents to the wound care center for follow- up of a right lower extremity posterior leg wound.? She has been changing the outer dressings to the site daily.? Continues to wear open back shoes for offloading of site. States wound site on the back is tender at times.? She denies constitutional symptoms today.? She has no further complaints today. Objective Data Objective Data Vital Signs: Vital Signs Temp Pulse Resp BP 96.5 F L 65 18 124/65 H 07/04/22 08:21 07/04/22 08:21 07/04/22 08:21 07/04/22 08:21 Weight: 76.204 kg Body Mass Index (BMI) 26.3 Physical Exam Const alert, oriented x3 and no apparent distress General Appearance: cooperative HEENT normocephalic Eyes General Eye: normal appearance of both eyes Neck General: normal visual inspection Lymph Lymphatic: no lymphadenopathy noted and no lymphedema noted Resp normal respiratory effort Cardio regular rate and regular rhythm Extremity normal capillary refill, no joint enlargement, no calf tenderness and no pedal edema Extremity Narrative: DP and PT pulses weakly palpable.? CFT < 5 seconds and adequate to the digits.? There is bilateral lower extremity edema +2 pitting with purplish discoloration of the entire lower extremity secondary to her peripheral vascular disease and Raynaud's.? There is a wound noted to the posterior right lower extremity overlying the Achilles tendon distally secondary to the heel cup of the shoe rubbing the back of the leg. Skin no rashes or lesions noted, skin turgor normal and no jaundice Wound Narrative: There is a wound noted to the posterior aspect of the right lower extremity at the distal aspect of the Achilles tendon secondary to shoe heel cup rubbing the back of her lower extremity.? Wound base demonstrates fibrogranular tissue however site is close to the Achilles tendon.? No purulent drainage, no malodor, no palpable fluctuance/bogginess, no visible abscess noted.? No signs of infection. Neuro moves all extremities Debridement Note Debridement Note Wound debrided: Right posterior leg Laterality: Right Wound Grade/Stage: Mustafa stage II Type of Debridement: Excisional debridement Anesthesia Used: 5% Lidocaine Gel Depth: Down to and including healthy tissue and in the subcutaneous layer Percentage of wound debrided: 100 Instrument Used: 3mm curette Tissue Removed: Fibrous, devitalized subcutaneous, biofilm, slough Severity: Fat Layer Exposed Amount of bleeding with debridement: Mild Bleeding Controlled with: Compression and gauze Patient tolerated procedure: Patient tolerated procedure well Post-Debridement Measurements and Additional Note: Post-Debridement Measurements/Treatment - Nurse 1 - General Ulcer Assessment Start: 06/13/22 10:31 Freq: Status: Active Protocol: ARNOLDO Activity Type Activity Date Activity User E-sign Co-sign Detail Recorded Client Recorded Date Recorded By Document 06/13/22 10:31 ML [id number] 06/13/22 10:35 ML Document 06/20/22 09:26 NM [id number] 06/20/22 09:29 AK Document 06/27/22 08:16 [id number] 06/27/22 08:22 Document 07/04/22 08:21 ML [id number] 07/04/22 08:24 ML 06/13/22 06/20/22 06/27/22 10:31 09:26 08:16 - Today's Visit Information Type of service Follow-up Visit Follow-up Visit Follow-up Visit (Physician/POWER SYSTEMS ENGINEER (Physician/POWER SYSTEMS ENGINEER (Physician/POWER SYSTEMS ENGINEER ) ) ) Arrival Mode Ambulatory Ambulatory Ambulatory,Cane Transfer Assistance Manual Patient Identification Verified (Name & Yes Yes Yes ) Patient Requires Transmission-Based No No No Precautions Safety Precautions NA Height and Weight Body Mass Index (BMI) 26.3 26.3 26.3 BMI Classification Overweight Overweight Overweight Vital Signs Temperature (97.8 F-99.1 F) 97.4 F L 84 F L 96.1 F L Temperature Source Temporal Temporal Temporal Pulse Rate (60-100) 66 84 92 Pulse Location Monitor Respiratory Rate (12-18) 18 Respiratory rate source Observation Blood Pressure (90/60-120/80) 136/72 H 159/55 H 157/74 H Blood Pressure Mean (mm Hg) 93 89 101 Source Monitor Monitor Monitor Position Semi-Fowlers Blood Pressure Location Right Arm History Since Last Visit- (Skip if this is Patient's initial visit) Have you changed medications since your No No No last visit? Any new allergies or adverse reactions No No No Had a fall/change in ADL's that may No No No increase risk of falls Signs or symptoms of abuse and/or No No No neglect since last visit Have you been in the hospital since your No No No last visit? Has dressing in place as prescribed No Yes Yes Has compression in place as prescribed N/A Yes Yes Has offloadiing in place as prescribed N/A N/A N/A Experienced any changes in pain level or No No No management Left Footwear Regular Shoe Regular Shoe Regular Shoe Right Footwear Regular Shoe Regular Shoe Regular Shoe Pain Scale: 0-10 Numeric Is Patient Pain Free? Yes Yes Yes 07/04/22 08:21 WC - Today's Visit Information Type of service Follow-up Visit (Physician/POWER SYSTEMS ENGINEER ) Arrival Mode Cane Transfer Assistance None Patient Identification Verified (Name & Yes ) Patient Requires Transmission-Based No Precautions Safety Precautions NA Height and Weight Body Mass Index (BMI) 26.3 BMI Classification Overweight Vital Signs Temperature (97.8 F-99.1 F) 96.5 F L Temperature Source Temporal Pulse Rate (60-100) 65 Pulse Location Monitor Respiratory Rate (12-18) 18 Respiratory rate source Observation Blood Pressure (90/60-120/80) 124/65 H Blood Pressure Mean (mm Hg) 84 Source Monitor Position Sitting Blood Pressure Location Left Arm History Since Last Visit- (Skip if this is Patient's initial visit) Have you changed medications since your No last visit? Any new allergies or adverse reactions No Had a fall/change in ADL's that may No increase risk of falls Signs or symptoms of abuse and/or No neglect since last visit Have you been in the hospital since your No last visit? Has dressing in place as prescribed Yes Has compression in place as prescribed Yes Has offloadiing in place as prescribed N/A Experienced any changes in pain level or No management Left Footwear Regular Shoe Right Footwear Regular Shoe Pain Scale: 0-10 Numeric Is Patient Pain Free? Yes WC - Nurse 1 - General Ulcer Measurement Start: 06/13/22 10:31 Freq: Status: Active Protocol: Activity Type Activity Date Activity User E-sign Co-sign Detail Recorded Client Recorded Date Recorded By Document 06/13/22 10:31 ML [id number] 06/13/22 10:35 ML Document 06/20/22 09:26 AK [id number] 06/20/22 09:29 AK Document 06/27/22 08:16 JF [id number] 06/27/22 08:22 JF Document 07/04/22 08:21 ML [id number] 07/04/22 08:24 ML 06/13/22 06/20/22 06/27/22 10:31 09:26 08:16 Wound Center Nurse 1 #1 R anterior ankle -Combined with other wound No -Current Size (cm) - Length 0.1 -Current Size (cm) - Width 0.1 -Current Size (cm) - Depth 0.1 -Total Square Cm 0.01 -Date of Last Picture (Recall this 06/13/22 field) -Photo Taken Yes -Tunneling No -Undermining/Tunneling No -Circular Undermining No -Change in Wound Grade/Stage No -Exudate Amt None Present -Wound Margin Distinct, Outline Attached -Granulation Amt None Present (0 %) -Granulation Quality N/A -Slough/Fibrin No -Necrosis Amt None Present (0 %) -Structure Exposed N/A -Texture (Chitra-wound Skin Appearance) No Abnormality, Assessed -Moisture (Chitra-wound Skin Appearance) No Abnormality, Assessed -Color (Chitra-wound Skin Appearance) No Abnormality, Assessed -Temperature (Chitra-wound Skin No Abnormality Appearance) (Pt Warm) -Tenderness on Palpation (Chitra-wound No Skin Appearance) -Ulcer Cleansing Soap and Water -Foul Odor after Cleansing No -Anesthetic Used 5% Lidocaine Gel -Wound Comment(s) scabbed areas ( 3) #3 R Lat LE -Combined with other wound No -Current Size (cm) - Length 0.6 -Current Size (cm) - Width 0.6 -Current Size (cm) - Depth 0.1 -Total Square Cm 0.36 -Photo Taken Yes -Epithelialization Small 1-33% -Tunneling No -Undermining/Tunneling No -Circular Undermining No -Exudate Amt None Present -Wound Margin Indistinct, Non -Visible -Granulation Amt None Present (0 %) -Slough/Fibrin Yes -Necrosis Amt Large (67-100%) -Necrotic Tissue Type Adherent Slough -Structure Exposed N/A -Texture (Chitra-wound Skin Appearance) Assessed -Moisture (Chitra-wound Skin Appearance) Assessed,Dry/ Scaly -Color (Chitra-wound Skin Appearance) Assessed -Temperature (Chitra-wound Skin No Abnormality Appearance) (Pt Warm) -Tenderness on Palpation (Chitra-wound No Skin Appearance) -Ulcer Cleansing Rinsed/ Irrigated with Saline -Foul Odor after Cleansing No -Anesthetic Used 5% Lidocaine Gel #2 R Med LE -Combined with other wound No No -Current Size (cm) - Length 1 0.5 0.8 -Current Size (cm) - Width 1.3 0.8 1.0 -Current Size (cm) - Depth 0.2 0.4 0.2 -Total Square Cm 1.3 0.40 0.80 -Date of Last Picture (Recall this 06/13/22 field) -Photo Taken Yes Yes Yes -Epithelialization Small 1-33% -Tunneling No No No -Undermining/Tunneling No No No -Circular Undermining No No No -Change in Wound Grade/Stage No No -Exudate Amt Medium None Present None Present -Exudate Type Serosanguineous -Wound Margin Distinct, Distinct, Fibrotic Scar, Outline Outline Thickened Scar Attached Attached -Granulation Amt Medium (34-66%) Medium (34-66%) None Present (0 %) -Granulation Quality [place] -Slough/Fibrin Yes Yes Yes -Necrosis Amt Medium (34-66%) Medium (34-66%) Large (67-100%) -Necrotic Tissue Type Adherent Slough Adherent Slough Adherent Slough -Structure Exposed N/A N/A N/A -Texture (Chitra-wound Skin Appearance) No Abnormality, No Abnormality, Assessed Assessed Assessed -Moisture (Chitra-wound Skin Appearance) No Abnormality, No Abnormality, Assessed,Dry/ Assessed Assessed Scaly -Color (Chitra-wound Skin Appearance) No Abnormality, No Abnormality, Assessed Assessed Assessed -Temperature (Chitra-wound Skin No Abnormality No Abnormality No Abnormality Appearance) (Pt Warm) (Pt Warm) (Pt Warm) -Tenderness on Palpation (Chitra-wound No No No Skin Appearance) -Ulcer Cleansing Soap and Water Rinsed/ Rinsed/ Irrigated with Irrigated with Saline Saline -Foul Odor after Cleansing No No No -Anesthetic Used 5% Lidocaine 5% Lidocaine 5% Lidocaine Gel Gel Gel Lower Limb Edema Present No No Right Calf (cm) 22 30 31.4 Right Ankle (cm) 22 22.0 Right Foot (cm) 29.5 07/04/22 08:21 Wound Center Nurse 1 #1 R anterior ankle -Combined with other wound -Current Size (cm) - Length -Current Size (cm) - Width -Current Size (cm) - Depth -Total Square Cm -Date of Last Picture (Recall this field) -Photo Taken -Tunneling -Undermining/Tunneling -Circular Undermining -Change in Wound Grade/Stage -Exudate Amt -Wound Margin -Granulation Amt -Granulation Quality -Slough/Fibrin -Necrosis Amt -Structure Exposed -Texture (Chitra-wound Skin Appearance) -Moisture (Chitra-wound Skin Appearance) -Color (Chitra-wound Skin Appearance) -Temperature (Chitra-wound Skin Appearance) -Tenderness on Palpation (Chitra-wound Skin Appearance) -Ulcer Cleansing -Foul Odor after Cleansing -Anesthetic Used -Wound Comment(s) #3 R Lat LE -Combined with other wound -Current Size (cm) - Length 0.5 -Current Size (cm) - Width 0.5 -Current Size (cm) - Depth 0.1 -Total Square Cm 0.25 -Photo Taken -Epithelialization -Tunneling -Undermining/Tunneling -Circular Undermining -Exudate Amt None Present -Wound Margin Distinct, Outline Attached -Granulation Amt Medium (34-66%) -Slough/Fibrin No -Necrosis Amt None Present (0 %) -Necrotic Tissue Type -Structure Exposed -Texture (Chitra-wound Skin Appearance) Assessed -Moisture (Chitra-wound Skin Appearance) Assessed,Dry/ Scaly -Color (Chitra-wound Skin Appearance) Assessed -Temperature (Chitra-wound Skin No Abnormality Appearance) (Pt Warm) -Tenderness on Palpation (Chitra-wound No Skin Appearance) -Ulcer Cleansing Soap and Water -Foul Odor after Cleansing No -Anesthetic Used 5% Lidocaine Gel #2 R Med LE -Combined with other wound -Current Size (cm) - Length 2 -Current Size (cm) - Width 2 -Current Size (cm) - Depth 0.1 -Total Square Cm 4 -Date of Last Picture (Recall this field) -Photo Taken -Epithelialization -Tunneling -Undermining/Tunneling -Circular Undermining -Change in Wound Grade/Stage -Exudate Amt None Present -Exudate Type -Wound Margin Distinct, Outline Attached -Granulation Amt None Present (0 %) -Granulation Quality -Slough/Fibrin No -Necrosis Amt None Present (0 %) -Necrotic Tissue Type -Structure Exposed -Texture (Chitra-wound Skin Appearance) Assessed -Moisture (Chitra-wound Skin Appearance) Assessed,Dry/ Scaly -Color (Chitra-wound Skin Appearance) Assessed -Temperature (Chitra-wound Skin Appearance) -Tenderness on Palpation (Chitra-wound Skin Appearance) -Ulcer Cleansing Soap and Water -Foul Odor after Cleansing No -Anesthetic Used 5% Lidocaine Gel Lower Limb Edema Present Right Calf (cm) Right Ankle (cm) Right Foot (cm) WC - Nurse 2 - General Ulcer CM Notes Start: 06/13/22 10:31 Freq: Status: Active Protocol: Activity Type Activity Date Activity User E-sign Co-sign Detail Recorded Client Recorded Date Recorded By Document 06/13/22 11:47 PL [id number] 06/13/22 11:49 PL Document 06/20/22 11:37 PL [id number] 06/20/22 11:44 PL Document 06/27/22 11:38 PL [id number] 06/27/22 11:41 PL Edit Result 06/27/22 11:38 PL (1) [id number] 06/28/22 07:04 PL Document 07/04/22 13:23 PL [id number] 07/04/22 13:27 PL (1) #2 R Med LE - Apply Skin Sub - 1st 25 sq cm - Legs => 1 06/13/22 06/20/22 06/27/22 11:47 11:37 11:38 Wound Center Nurse 2 #1 R anterior ankle -Procedure Performed No -Wound/Ulcer Outcome Healed- Epithelialized #3 R Lat LE -Time 09:39 08:34 -Correct Patient Yes Yes -Correct Side, Site, Position Yes Yes -Correct Procedure Yes Yes -Procedure Performed Yes Yes -Type of Procedure Debridement Debridement -Clinical Debridement Subcutaneous Subcutaneous -Tissue Removed Subcutaneous Subcutaneous -Post Debridement (cm) - Length 0.3 0.5 -Post Debridement (cm) - Width 0.4 0.5 -Post Debridement (cm) - Depth 0.1 0.1 -Total Square (Post) (cm) 0.12 0.25 -Area of Debridement (cm) - Length 0.3 0.5 -Area of Debridement (cm) - Width 0.4 0.5 -Total Square (Area) (cm) 0.12 0.25 -Tunneling No No -Undermining/Tunneling No No -Circular Undermining No No -Wound/Ulcer Outcome Not Healed Not Healed -Ulcer Cleansing Rinsed/ Rinsed/ Irrigated with Irrigated with Saline Saline -Foul Odor after Cleansing No No -Bioengineered Tissue No No -Type of Bioengineered Tissue -Expiration Date -Product Lot Number -Percent Used -Bleeding Controlled with Pressure Pressure -Treatment Response Procedure Procedure Tolerated Well Tolerated Well -Debridement - Subq, 1st 20sq cm Yes No -Apply Skin Sub - 1st 25 sq cm - Legs -Theraskin (per sq cm) #2 R Med LE -Time 11:02 09:39 08:34 -Correct Patient Yes Yes Yes -Correct Side, Site, Position Yes Yes Yes -Correct Procedure Yes Yes Yes -Procedure Performed Yes Yes Yes -Type of Procedure Debridement Debridement Debridement -Clinical Debridement Subcutaneous Subcutaneous Subcutaneous -Tissue Removed Subcutaneous Subcutaneous Subcutaneous -Post Debridement (cm) - Length 0.7 0.5 0.5 -Post Debridement (cm) - Width 0.9 0.9 0.9 -Post Debridement (cm) - Depth 0.1 0.1 0.1 -Total Square (Post) (cm) 0.63 0.45 0.45 -Area of Debridement (cm) - Length 0.7 0.5 0.5 -Area of Debridement (cm) - Width 0.9 0.9 0.9 -Total Square (Area) (cm) 0.63 0.45 0.45 -Tunneling No No No -Undermining/Tunneling No No No -Circular Undermining No No No -Wound/Ulcer Outcome Not Healed Not Healed Not Healed -Ulcer Cleansing Rinsed/ Rinsed/ Rinsed/ Irrigated with Irrigated with Irrigated with Saline Saline Saline -Foul Odor after Cleansing No No No -Bioengineered Tissue Yes Yes Yes -Type of Bioengineered Tissue Theraskin Theraskin Theraskin -Expiration Date 09/13/24 09/25/24 08/06/26 -Product Lot Number [id number] -Percent Used 100 100 100 -Bleeding Controlled with Pressure Pressure Pressure -Treatment Response Procedure Procedure Procedure Tolerated Well Tolerated Well Tolerated Well -Debridement - Subq, 1st 20sq cm No No No -Apply Skin Sub - 1st 25 sq cm - Legs 1 1 1 -Theraskin (per sq cm) 3 3 3 Pain Scale: 0-10 Numeric Is Patient Pain Free? Yes Yes Yes 07/04/22 13:23 Wound Center Nurse 2 #1 R anterior ankle -Procedure Performed -Wound/Ulcer Outcome #3 R Lat LE -Time 08:37 -Correct Patient Yes -Correct Side, Site, Position Yes -Correct Procedure Yes -Procedure Performed Yes -Type of Procedure Debridement -Clinical Debridement Subcutaneous -Tissue Removed Subcutaneous -Post Debridement (cm) - Length 0.5 -Post Debridement (cm) - Width 0.4 -Post Debridement (cm) - Depth 0.1 -Total Square (Post) (cm) 0.20 -Area of Debridement (cm) - Length 0.5 -Area of Debridement (cm) - Width 0.4 -Total Square (Area) (cm) 0.20 -Tunneling No -Undermining/Tunneling No -Circular Undermining No -Wound/Ulcer Outcome Not Healed -Ulcer Cleansing Rinsed/ Irrigated with Saline -Foul Odor after Cleansing No -Bioengineered Tissue Yes -Type of Bioengineered Tissue Theraskin -Expiration Date 02/02/25 -Product Lot Number [id number] -Percent Used 100 -Bleeding Controlled with Pressure -Treatment Response Procedure Tolerated Well -Debridement - Subq, 1st 20sq cm No -Apply Skin Sub - 1st 25 sq cm - Legs 1 -Theraskin (per sq cm) 6 #2 R Med LE -Time 08:37 -Correct Patient Yes -Correct Side, Site, Position Yes -Correct Procedure Yes -Procedure Performed Yes -Type of Procedure Debridement -Clinical Debridement Subcutaneous -Tissue Removed Subcutaneous -Post Debridement (cm) - Length 0.5 -Post Debridement (cm) - Width 0.4 -Post Debridement (cm) - Depth 0.1 -Total Square (Post) (cm) 0.20 -Area of Debridement (cm) - Length 0.5 -Area of Debridement (cm) - Width 0.4 -Total Square (Area) (cm) 0.20 -Tunneling No -Undermining/Tunneling No -Circular Undermining No -Wound/Ulcer Outcome Not Healed -Ulcer Cleansing Rinsed/ Irrigated with Saline -Foul Odor after Cleansing No -Bioengineered Tissue No -Type of Bioengineered Tissue -Expiration Date -Product Lot Number -Percent Used -Bleeding Controlled with Pressure -Treatment Response Procedure Tolerated Well -Debridement - Subq, 1st 20sq cm No -Apply Skin Sub - 1st 25 sq cm - Legs -Theraskin (per sq cm) Pain Scale: 0-10 Numeric Is Patient Pain Free? Yes WC - Nurse 3 - General Ulcer D/C NN Start: 06/13/22 10:31 Freq: Status: Active Protocol: Activity Type Activity Date Activity User E-sign Co-sign Detail Recorded Client Recorded Date Recorded By Document 06/13/22 11:16 NM [id number] 06/13/22 11:17 AK Document 06/20/22 12:03 NM [id number] 06/20/22 12:04 NM Document 06/27/22 08:58 [id number] 06/27/22 09:00 Document 07/04/22 08:57 [id number] 07/04/22 08:58 06/13/22 06/20/22 06/27/22 11:16 12:03 08:58 Wound Care Center Nurse 3 #1 R anterior ankle -Ulcer Cleansing Not Cleansed -Foul Odor after Cleansing No -Negative Pressure Wound Therapy N/A -Primary Dressing Covered/Secured with Dry Gauze & Roll Gauze, Secured with Tape #3 R Lat LE -Ulcer Cleansing Not Cleansed Rinsed/ Irrigated with Saline -Foul Odor after Cleansing No No -Negative Pressure Wound Therapy N/A -Primary Dressing Applied C Hydrogel ($), Collagen Powder ($) -Primary Dressing Covered/Secured with Dry Gauze & Dry Gauze,Dry Roll Gauze, Gauze & Roll Secured with Gauze Tape #2 R Med LE -Ulcer Cleansing Not Cleansed Not Cleansed Rinsed/ Irrigated with Saline -Foul Odor after Cleansing No No No -Negative Pressure Wound Therapy N/A N/A -Primary Dressing Covered/Secured with Dry Gauze & Dry Gauze & Dry Gauze & Roll Gauze, Roll Gauze, Roll Gauze Secured with Secured with Tape Tape Right -Compression Wrap Pain Scale: 0-10 Numeric Is Patient Pain Free? Yes No Yes WC - Visit Discharge Discharge Condition Stable Stable Stable Ambulatory Status Ambulatory Ambulatory Ambulatory,Cane Transportation Private Auto Private Auto Private Auto Medication Reconcilliation completed & Yes Yes No provided to patient/care provider Clinical Summary of Care Provided Yes Yes No 07/04/22 08:57 Wound Care Center Nurse 3 #1 R anterior ankle -Ulcer Cleansing -Foul Odor after Cleansing -Negative Pressure Wound Therapy -Primary Dressing Covered/Secured with #3 R Lat LE -Ulcer Cleansing Rinsed/ Irrigated with Saline -Foul Odor after Cleansing -Negative Pressure Wound Therapy -Primary Dressing Applied -Primary Dressing Covered/Secured with Dry Gauze & Roll Gauze, Secured with Tape #2 R Med LE -Ulcer Cleansing Rinsed/ Irrigated with Saline -Foul Odor after Cleansing -Negative Pressure Wound Therapy -Primary Dressing Covered/Secured with Dry Gauze & Roll Gauze, Secured with Tape Right -Compression Wrap Hank Wrap Pain Scale: 0-10 Numeric Is Patient Pain Free? Yes WC - Visit Discharge Discharge Condition Stable Ambulatory Status Ambulatory,Cane Transportation Private Auto Medication Reconcilliation completed & Yes provided to patient/care provider Clinical Summary of Care Provided Yes Additional Wound Wound debrided: Right lateral ankle Laterality: Right Wound Grade/Stage: Mustafa stage I Type of Debridement: Excisional debridement Anesthesia Used: 5% Lidocaine Gel Depth: Down to and including healthy tissue and in the subcutaneous layer Percentage of wound debrided: 100 Instrument Used: 3mm curette Tissue Removed: fibrous, devitalized subcutaneous, biofilm, slough Severity: Fat Layer Exposed Amount of bleeding with debridement: Mild Bleeding Controlled with: Compression and gauze Patient tolerated procedure: Patient tolerated procedure well Assessment/Plan Assessment/Plan (1) Non-pressure chronic ulcer of right calf with fat layer exposed: CODE(S): L97.212 - Non-pressure chronic ulcer of right calf with fat layer exposed (2) Raynaud disease: CODE(S): I73.00 - Raynaud's syndrome without gangrene (3) Bilateral lower extremity edema: CODE(S): R60.0 - Localized edema (4) Hypogammaglobulinemia, acquired: CODE(S): D80.1 - Nonfamilial hypogammaglobulinemia (5) HLD (hyperlipidemia): CODE(S): E78.5 - Hyperlipidemia, unspecified QUALIFIERS: Hyperlipidemia type: pure hypercholesterolemia Qualified Code(s): E78.00 - Pure hypercholesterolemia, unspecified; E78.0 - Pure hypercholesterolemia (6) Chronic diastolic (congestive) heart failure: CODE(S): I50.32 - Chronic diastolic (congestive) heart failure (7) Essential (primary) hypertension: CODE(S): I10 - Essential (primary) hypertension PLAN: Plan Patient seen and evaluated Ulceration to the right lateral ankle underwent debridement as noted in clinical panel above. Ulceration measures 0.5 cm x 0.5 cm x 0.1 cm. Ulceration demonstrates no signs of infection. Ulceration was dressed with collagen powder, hydrogel, and dry sterile dressing. She may change this dressing daily. Ulceration noted to the posterior aspect of the right lower extremity overlying the distal aspect of the Achilles tendon.? States ulceration is related to shoe gear irritation.? Ulceration underwent debridement as noted in the clinical panel above.? Ulceration measures 0.4 cm x 0.6 cm x 0.1 cm.? Ulceration demonstrates no signs of infection.? Ulceration has decreased in size versus previous visit. She has been approved for advanced wound care product.? Collagen powder was packed into the wound bed along with TheraSkin #6 applied to the wound bed with Adaptic touch and Steri-Strips with dry sterile dressing.? She is to change the outer dressings as needed.? She was instructed to not get the site wet. Ulcerations continue to demonstrate reduction in size versus previous visit. I discussed with her today that the ulceration is in close proximity to the Achilles tendon and this may complicate healing should she get an infection.? She voices understanding of this. Discussed continued use of Tubigrip compression and elevation of lower extremities at all times of rest to aid in edema control. I discussed the signs and symptoms of infection with her today.? She was instructed that if she gets any increasing redness about the wound margins extending up the back of her leg, any purulent drainage from the wound site, increasing foul odor, or if she experiences any fever greater than 101 degree, nausea, vomiting, or chills that these are signs of a progressing infection and she needs to report to the ED.? She voices understanding of this today. The following work up and care recommendations were made: Dressing: TheraSkin, Adaptic touch, Steri-Strips, and dry sterile dressing Wash: Do not get wet Tissue growth optimization: TheraSkin Offload: Ensure the back of the leg is not in direct contact with chair/recliner and remains padded by pillows offloading at all times of rest Vascular: Patient does have adequate DP and PT pulse pulses.? Capillary fill time is adequate to the digits Edema: Continued elevation of the lower extremities at times of rest and Tubigrip compression stocking Infection: No signs of infection Pain: May take [id number] Tylenol extra strength for pain Host factors: Advanced age, edema, Raynaud's/vascular disease ? I answered all the patient's questions.? To return to the wound healing center in 1 week or call sooner if the patient has any questions or concerns.
== END 2022-07-12 23:59 | disposition home or self-care (01) ==
LOC: WC 08:30
PROVIDERS: PCP Internal Medicine; Visit Provider Student in an Organized Health Care Education/Training Program
DX: E11.622 Type 2 diabetes mellitus with other skin ulcer (principal); D80.1 Nonfamilial hypogammaglobulinemia; E11.51 Type 2 diabetes mellitus with diabetic peripheral angiopathy without gangrene; L97.312 Non-pressure chronic ulcer of right ankle with fat layer exposed; L97.212 Non-pressure chronic ulcer of right calf with fat layer exposed; I11.0 Hypertensive heart disease with heart failure; I50.32 Chronic diastolic (congestive) heart failure; I73.00 Raynaud's syndrome without gangrene; E78.00 Pure hypercholesterolemia, unspecified; R60.0 Localized edema
CPT/HCPCS: 11042; 15271; Q4121

== ENCOUNTER 2022-08-01 09:30 | Outpatient (RCR) | payer MEDICARE, OTHER, SELFPAY ==
[2022-07-13 01:58] VITALS: BP 133/53; PULSE 65; RESP 18; TEMP 35.4; BMI 26.3
[2022-07-18 09:02] VITALS: BP 125/62; PULSE 88; RESP 16; TEMP 35.7; BMI 26.3
--- NOTE | 2022-07-18 09:13 | PCM.WC.PN ---
History of Present Illness Date of Service: 07/18/22 Chief Complaint: Right lower extremity wound History of Wound: Patient is an 86-year-old female with history of atherosclerotic disease, peripheral vascular disease, Raynaud's, hyperlipidemia who presented to Dr. Dang office with new wound to the posterior aspect of her right lower extremity secondary to shoe gear rubbing against the back of her leg. States that she was placed on an antibiotic and had been applying antibiotic ointment to the wound. She was seen by me in office last week for her debridement of nails. She stated that she would be seen in the wound care center next week and thus I have not started treatment of the right lower extremity wound performing debridement of the wound in office. She states wound has been present for only a few weeks without improvement prior to seeking care. Subjective Subjective This is an 86-year-old female who presents to the wound care center for follow-up of a right lower extremity posterior leg wound.? She has been changing the outer dressings to the site daily.? Continues to wear open back shoes for offloading of site. States wound site on the outer leg is more tender today.? She denies constitutional symptoms today.? She has no further complaints today. Objective Data Objective Data Vital Signs: Vital Signs Temp Pulse Resp BP O2 Del Method 96.2 F L 88 16 125/62 H Room Air 07/18/22 09:02 07/18/22 09:02 07/18/22 09:02 07/18/22 09:02 07/18/22 09:02 Oxygen Delivery Method Room Air Weight: 76.204 kg Body Mass Index (BMI) 26.3 Physical Exam Const alert, oriented x3 and no apparent distress General Appearance: cooperative HEENT normocephalic Eyes General Eye: normal appearance of both eyes Neck General: normal visual inspection Lymph Lymphatic: no lymphadenopathy noted and no lymphedema noted Resp normal respiratory effort Cardio regular rate and regular rhythm Extremity normal capillary refill, no calf tenderness and no pedal edema Extremity Narrative: DP and PT pulses weakly palpable.? CFT < 5 seconds and adequate to the digits.? There is bilateral lower extremity edema +2 pitting with purplish discoloration of the entire lower extremity secondary to her peripheral vascular disease and Raynaud's.? There is a wound noted to the posterior right lower extremity overlying the Achilles tendon distally secondary to the heel cup of the shoe rubbing the back of the leg. Skin no rashes or lesions noted, skin turgor normal and no jaundice Wound Narrative: There is a wound noted to the posterior aspect of the right lower extremity at the distal aspect of the Achilles tendon secondary to shoe heel cup rubbing the back of her lower extremity.? Wound base demonstrates fibrogranular tissue however site is close to the Achilles tendon.? No purulent drainage, no malodor, no palpable fluctuance/bogginess, no visible abscess noted.? No signs of infection. Ulceration noted to the right lateral lower extremity demonstrates mixed fibrogranular layer. No purulent drainage, no malodor, no palpable fluctuance/bogginess, no visible abscess noted. Neuro moves all extremities Debridement Note Debridement Note Wound debrided: Right posterior leg Laterality: Right Wound Grade/Stage: Mustafa stage II Type of Debridement: Excisional debridement Anesthesia Used: 5% Lidocaine Gel Depth: Down to and including healthy tissue and in the subcutaneous layer Percentage of wound debrided: 100 Instrument Used: 3mm curette Tissue Removed: Fibrous, devitalized subcutaneous, biofilm, slough Severity: Fat Layer Exposed Amount of bleeding with debridement: Mild Bleeding Controlled with: Compression and gauze Patient tolerated procedure: Patient tolerated procedure well Post-Debridement Measurements and Additional Note: Post-Debridement Measurements/Treatment - Nurse 1 - General Ulcer Assessment Start: 07/18/22 09:02 Freq: Status: Active Protocol: .LOWEXT Activity Type Activity Date Activity User E-sign Co-sign Detail Recorded Client Recorded Date Recorded By Document 07/18/22 09:02 [facility] [id number] 07/18/22 09:06 [facility] 07/18/22 09:02 - Today's Visit Information Type of service Follow-up Visit (Physician/[employer] ) Arrival Mode Ambulatory,Cane Transfer Assistance None Patient Identification Verified (Name & Yes ) Patient Requires Transmission-Based No Precautions Height and Weight Body Mass Index (BMI) 26.3 BMI Classification Overweight Vital Signs Temperature (97.8 F-99.1 F) 96.2 F L Temperature Source Temporal Pulse Rate (60-100) 88 Pulse Location Monitor Respiratory Rate (12-18) 16 Respiratory rate source Observation Oxygen Delivery Method Room Air Blood Pressure (90/60-120/80) 125/62 H Blood Pressure Mean (mm Hg) 83 Source Monitor Position Sitting Blood Pressure Location Left Arm History Since Last Visit- (Skip if this is Patient's initial visit) Have you changed medications since your No last visit? Any new allergies or adverse reactions No Had a fall/change in ADL's that may No increase risk of falls Signs or symptoms of abuse and/or No neglect since last visit Have you been in the hospital since your No last visit? Has dressing in place as prescribed Yes Has compression in place as prescribed Yes Has offloadiing in place as prescribed N/A Experienced any changes in pain level or No management Left Footwear Slipper Right Footwear Slipper Pain Scale: 0-10 Numeric Is Patient Pain Free? Yes WC - Nurse 1 - General Ulcer Measurement Start: 07/18/22 09:02 Freq: Status: Active Protocol: Activity Type Activity Date Activity User E-sign Co-sign Detail Recorded Client Recorded Date Recorded By Document 07/18/22 09:02 [facility] [id number] 07/18/22 09:06 [facility] 07/18/22 09:02 Wound Center Nurse 1 #3 R Lat LE -Combined with other wound No -Current Size (cm) - Length 0.6 -Current Size (cm) - Width 0.5 -Current Size (cm) - Depth 0.2 -Total Square Cm 0.30 -Date of Last Picture (Recall this 07/18/22 field) -Photo Taken Yes -Epithelialization Small 1-33% -Tunneling No -Undermining/Tunneling No -Circular Undermining No -Exudate Amt Medium -Exudate Type Serosanguineous -Wound Margin Distinct, Outline Attached -Granulation Amt Large (67-100%) -Granulation Quality Red -Slough/Fibrin Yes -Necrosis Amt Small (1-33%) -Necrotic Tissue Type Adherent Slough -Texture (Chitra-wound Skin Appearance) Assessed, Scarring -Moisture (Chitra-wound Skin Appearance) Assessed,Dry/ Scaly -Color (Chitra-wound Skin Appearance) Assessed -Temperature (Chitra-wound Skin No Abnormality Appearance) (Pt Warm) -Tenderness on Palpation (Chitra-wound No Skin Appearance) -Ulcer Cleansing Soap and Water -Foul Odor after Cleansing No -Anesthetic Used 4% Lidocaine Solution #2 R Med LE -Combined with other wound No -Current Size (cm) - Length 0.3 -Current Size (cm) - Width 0.7 -Current Size (cm) - Depth 0.1 -Total Square Cm 0.21 -Date of Last Picture (Recall this 07/18/22 field) -Photo Taken Yes -Epithelialization Small 1-33% -Tunneling No -Undermining/Tunneling No -Circular Undermining No -Exudate Amt Medium -Exudate Type Serosanguineous -Wound Margin Distinct, Outline Attached -Granulation Amt Medium (34-66%) -Granulation Quality Red -Slough/Fibrin Yes -Necrosis Amt Medium (34-66%) -Necrotic Tissue Type Adherent Slough -Texture (Chitra-wound Skin Appearance) Assessed, Scarring -Moisture (Chitra-wound Skin Appearance) Assessed,Dry/ Scaly -Color (Chitra-wound Skin Appearance) Assessed -Temperature (Chitra-wound Skin No Abnormality Appearance) (Pt Warm) -Tenderness on Palpation (Chitra-wound No Skin Appearance) -Ulcer Cleansing Soap and Water -Foul Odor after Cleansing No -Anesthetic Used 4% Lidocaine Solution Lower Limb Edema Present Yes Right Calf (cm) 31.2 Right Ankle (cm) 21.4 Assessment/Plan Assessment/Plan (1) Non-pressure chronic ulcer of right calf with fat layer exposed: CODE(S): L97.212 - Non-pressure chronic ulcer of right calf with fat layer exposed (2) Raynaud disease: CODE(S): I73.00 - Raynaud's syndrome without gangrene (3) Bilateral lower extremity edema: CODE(S): R60.0 - Localized edema (4) Hypogammaglobulinemia, acquired: CODE(S): D80.1 - Nonfamilial hypogammaglobulinemia (5) HLD (hyperlipidemia): CODE(S): E78.5 - Hyperlipidemia, unspecified QUALIFIERS: Hyperlipidemia type: pure hypercholesterolemia Qualified Code(s): E78.00 - Pure hypercholesterolemia, unspecified; E78.0 - Pure hypercholesterolemia (6) Essential (primary) hypertension: CODE(S): I10 - Essential (primary) hypertension (7) Chronic diastolic (congestive) heart failure: CODE(S): I50.32 - Chronic diastolic (congestive) heart failure PLAN: Plan Patient seen and evaluated Ulceration to the right lateral ankle underwent debridement as noted in clinical panel above.? Ulceration measures 0.5 cm x 0.5 cm x 0.1 cm.? Ulceration demonstrates no signs of infection.? Ulceration was dressed with Olivia and dry sterile dressing.? She may change this dressing daily. Ulceration noted to the posterior aspect of the right lower extremity overlying the distal aspect of the Achilles tendon.? States ulceration is related to shoe gear irritation.? Ulceration underwent debridement as noted in the clinical panel above.? Ulceration measures 0.5cm x 0.6 cm x 0.1 cm.? Ulceration demonstrates no signs of infection.? Ulceration has decreased in size versus previous visit.? She has been approved for advanced wound care product.? Collagen powder was packed into the wound bed along with TheraSkin #7 applied to the wound bed with Adaptic touch and Steri-Strips with dry sterile dressing.? She is to change the outer dressings as needed.? She was instructed to not get the site wet. Ulcerations continue to demonstrate reduction in size versus previous visit. I discussed with her today that the ulceration is in close proximity to the Achilles tendon and this may complicate healing should she get an infection.? She voices understanding of this. Discussed continued use of Tubigrip compression and elevation of lower extremities at all times of rest to aid in edema control. I discussed the signs and symptoms of infection with her today.? She was instructed that if she gets any increasing redness about the wound margins extending up the back of her leg, any purulent drainage from the wound site, increasing foul odor, or if she experiences any fever greater than 101 degree, nausea, vomiting, or chills that these are signs of a progressing infection and she needs to report to the ED.? She voices understanding of this today. The following work up and care recommendations were made: Dressing: TheraSkin, Adaptic touch, Steri-Strips, and dry sterile dressing Wash: Do not get wet Tissue growth optimization: TheraSkin Offload: Ensure the back of the leg is not in direct contact with chair/recliner and remains padded by pillows offloading at all times of rest Vascular: Patient does have adequate DP and PT pulse pulses.? Capillary fill time is adequate to the digits Edema: Continued elevation of the lower extremities at times of rest and Tubigrip compression stocking Infection: No signs of infection Pain: May take [id number] Tylenol extra strength for pain Host factors: Advanced age, edema, Raynaud's/vascular disease ? I answered all the patient's questions.? To return to the wound healing center in 1 week or call sooner if the patient has any questions or concerns.
--- NOTE | 2022-07-25 09:22 | PCM.WC.PN ---
History of Present Illness Date of Service: 07/25/22 Chief Complaint: Right lower extremity wound History of Wound: Patient is an 86-year-old female with history of atherosclerotic disease, peripheral vascular disease, Raynaud's, hyperlipidemia who presented to Dr. Dang office with new wound to the posterior aspect of her right lower extremity secondary to shoe gear rubbing against the back of her leg. States that she was placed on an antibiotic and had been applying antibiotic ointment to the wound. She was seen by me in office last week for her debridement of nails. She stated that she would be seen in the wound care center next week and thus I have not started treatment of the right lower extremity wound performing debridement of the wound in office. She states wound has been present for only a few weeks without improvement prior to seeking care. Subjective Subjective This is an 86-year-old female who presents to the wound care center for follow-up of a right lower extremity posterior leg wound.? She has been changing the outer dressings to the site daily.? Continues to wear open back shoes for offloading of site. 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 She denies constitutional symptoms today.? She has no further complaints today. Objective Data Objective Data Vital Signs: Vital Signs Temp Pulse Resp BP O2 Del Method 96.2 F L 88 16 125/62 H Room Air 07/18/22 09:02 07/18/22 09:02 07/18/22 09:02 07/18/22 09:02 07/18/22 09:02 Oxygen Delivery Method Room Air Weight: 76.204 kg Body Mass Index (BMI) 26.3 Physical Exam Const alert, oriented x3 and no apparent distress General Appearance: cooperative HEENT normocephalic Eyes General Eye: normal appearance of both eyes Neck General: normal visual inspection Lymph Lymphatic: no lymphadenopathy noted and no lymphedema noted Resp normal respiratory effort Cardio regular rate and regular rhythm Extremity normal capillary refill, no calf tenderness and no pedal edema Extremity Narrative: DP and PT pulses weakly palpable.? CFT < 5 seconds and adequate to the digits.? There is bilateral lower extremity edema +2 pitting with purplish discoloration of the entire lower extremity secondary to her peripheral vascular disease and Raynaud's.? There is a wound noted to the posterior right lower extremity overlying the Achilles tendon distally secondary to the heel cup of the shoe rubbing the back of the leg. Skin no rashes or lesions noted, skin turgor normal and no jaundice Wound Narrative: There is a wound noted to the posterior aspect of the right lower extremity at the distal aspect of the Achilles tendon secondary to shoe heel cup rubbing the back of her lower extremity.? Wound base demonstrates fibrogranular tissue however site is close to the Achilles tendon.? No purulent drainage, no malodor, no palpable fluctuance/bogginess, no visible abscess noted.? No signs of infection. Ulceration noted to the right lateral lower extremity demonstrates mixed fibrogranular layer. No purulent drainage, no malodor, no palpable fluctuance/bogginess, no visible abscess noted. Neuro moves all extremities Debridement Note Debridement Note Wound debrided: Right posterior lower extremity Laterality: Right Wound Grade/Stage: Mustafa H2 Type of Debridement: Excisional debridement Anesthesia Used: 5% Lidocaine Gel Depth: Down to and including healthy tissue and in the subcutaneous layer Percentage of wound debrided: 100 Instrument Used: 3mm curette Tissue Removed: Fibrous, devitalized subcutaneous, biofilm, slough Severity: Fat Layer Exposed Amount of bleeding with debridement: Mild Bleeding Controlled with: Compression and gauze Patient tolerated procedure: Patient tolerated procedure well Post-Debridement Measurements and Additional Note: Post-Debridement Measurements/Treatment - Nurse 1 - General Ulcer Assessment Start: 07/18/22 09:02 Freq: Status: Active Protocol: .LOWEXT Activity Type Activity Date Activity User E-sign Co-sign Detail Recorded Client Recorded Date Recorded By Document 07/18/22 09:02 [facility] [id number] 07/18/22 09:06 [facility] 07/18/22 09:02 - Today's Visit Information Type of service Follow-up Visit (Physician/[employer] ) Arrival Mode Ambulatory,Cane Transfer Assistance None Patient Identification Verified (Name & Yes ) Patient Requires Transmission-Based No Precautions Height and Weight Body Mass Index (BMI) 26.3 BMI Classification Overweight Vital Signs Temperature (97.8 F-99.1 F) 96.2 F L Temperature Source Temporal Pulse Rate (60-100) 88 Pulse Location Monitor Respiratory Rate (12-18) 16 Respiratory rate source Observation Oxygen Delivery Method Room Air Blood Pressure (90/60-120/80) 125/62 H Blood Pressure Mean (mm Hg) 83 Source Monitor Position Sitting Blood Pressure Location Left Arm History Since Last Visit- (Skip if this is Patient's initial visit) Have you changed medications since your No last visit? Any new allergies or adverse reactions No Had a fall/change in ADL's that may No increase risk of falls Signs or symptoms of abuse and/or No neglect since last visit Have you been in the hospital since your No last visit? Has dressing in place as prescribed Yes Has compression in place as prescribed Yes Has offloadiing in place as prescribed N/A Experienced any changes in pain level or No management Left Footwear Slipper Right Footwear Slipper Pain Scale: 0-10 Numeric Is Patient Pain Free? Yes WC - Nurse 1 - General Ulcer Measurement Start: 07/18/22 09:02 Freq: Status: Active Protocol: Activity Type Activity Date Activity User E-sign Co-sign Detail Recorded Client Recorded Date Recorded By Document 07/18/22 09:02 [facility] [id number] 07/18/22 09:06 [facility] 07/18/22 09:02 Wound Center Nurse 1 #3 R Lat LE -Combined with other wound No -Current Size (cm) - Length 0.6 -Current Size (cm) - Width 0.5 -Current Size (cm) - Depth 0.2 -Total Square Cm 0.30 -Date of Last Picture (Recall this 07/18/22 field) -Photo Taken Yes -Epithelialization Small 1-33% -Tunneling No -Undermining/Tunneling No -Circular Undermining No -Exudate Amt Medium -Exudate Type Serosanguineous -Wound Margin Distinct, Outline Attached -Granulation Amt Large (67-100%) -Granulation Quality Red -Slough/Fibrin Yes -Necrosis Amt Small (1-33%) -Necrotic Tissue Type Adherent Slough -Texture (Chitra-wound Skin Appearance) Assessed, Scarring -Moisture (Chitra-wound Skin Appearance) Assessed,Dry/ Scaly -Color (Chitra-wound Skin Appearance) Assessed -Temperature (Chitra-wound Skin No Abnormality Appearance) (Pt Warm) -Tenderness on Palpation (Chitra-wound No Skin Appearance) -Ulcer Cleansing Soap and Water -Foul Odor after Cleansing No -Anesthetic Used 4% Lidocaine Solution #2 R Med LE -Combined with other wound No -Current Size (cm) - Length 0.3 -Current Size (cm) - Width 0.7 -Current Size (cm) - Depth 0.1 -Total Square Cm 0.21 -Date of Last Picture (Recall this 07/18/22 field) -Photo Taken Yes -Epithelialization Small 1-33% -Tunneling No -Undermining/Tunneling No -Circular Undermining No -Exudate Amt Medium -Exudate Type Serosanguineous -Wound Margin Distinct, Outline Attached -Granulation Amt Medium (34-66%) -Granulation Quality Red -Slough/Fibrin Yes -Necrosis Amt Medium (34-66%) -Necrotic Tissue Type Adherent Slough -Texture (Chitra-wound Skin Appearance) Assessed, Scarring -Moisture (Chitra-wound Skin Appearance) Assessed,Dry/ Scaly -Color (Chitra-wound Skin Appearance) Assessed -Temperature (Chitra-wound Skin No Abnormality Appearance) (Pt Warm) -Tenderness on Palpation (Chitra-wound No Skin Appearance) -Ulcer Cleansing Soap and Water -Foul Odor after Cleansing No -Anesthetic Used 4% Lidocaine Solution Lower Limb Edema Present Yes Right Calf (cm) 31.2 Right Ankle (cm) 21.4 WC - Nurse 2 - General Ulcer CM Notes Start: 07/18/22 09:02 Freq: Status: Active Protocol: Activity Type Activity Date Activity User E-sign Co-sign Detail Recorded Client Recorded Date Recorded By Document 07/18/22 09:17 PL [id number] 07/18/22 09:31 PL Edit Result 07/18/22 09:17 PL (1) [id number] 07/18/22 11:27 PL Edit Result 07/18/22 09:17 PL (2) [id number] 07/19/22 06:50 PL (1) #3 R Lat LE - Bioengineered Tissue No => Yes - Type of Bioengineered Tissue => Theraskin - Expiration Date => 01/21/27 - Product Lot Number => [id number] - Percent Used => 100 - Apply Skin Sub - 1st 25 sq cm - Legs => 1 - Theraskin (per sq cm) => 3 #2 R Med LE - Bioengineered Tissue Yes => No - Product Lot Number 2 [id number] => [id number] (2) #3 R Lat LE - Apply Skin Sub - 1st 25 sq cm - Legs 1 => - Theraskin (per sq cm) 3 => 07/18/22 09:17 Wound Center Nurse 2 #[address] [facility] LE -Time 09:15 -Correct Patient Yes -Correct Side, Site, Position Yes -Correct Procedure Yes -Procedure Performed Yes -Type of Procedure Debridement -Clinical Debridement Subcutaneous -Tissue Removed Epidermis, Subcutaneous -Post Debridement (cm) - Length 0.5 -Post Debridement (cm) - Width 0.5 -Post Debridement (cm) - Depth 0.1 -Total Square (Post) (cm) 0.25 -Area of Debridement (cm) - Length 0.5 -Area of Debridement (cm) - Width 0.5 -Total Square (Area) (cm) 0.25 -Tunneling No -Undermining/Tunneling No -Circular Undermining No -Wound/Ulcer Outcome Not Healed -Ulcer Cleansing Rinsed/ Irrigated with Saline -Foul Odor after Cleansing No -Bioengineered Tissue Yes -Type of Bioengineered Tissue Theraskin -Expiration Date 01/21/27 -Product Lot Number [id number] -Percent Used 100 -Bleeding Controlled with Pressure -Treatment Response Procedure Tolerated Well -Debridement - Subq, 1st 20sq cm No #2 R Med LE -Time 09:15 -Correct Patient Yes -Correct Side, Site, Position Yes -Correct Procedure Yes -Procedure Performed Yes -Type of Procedure Debridement -Clinical Debridement Subcutaneous -Tissue Removed Subcutaneous -Post Debridement (cm) - Length 0.5 -Post Debridement (cm) - Width 0.6 -Post Debridement (cm) - Depth 0.1 -Total Square (Post) (cm) 0.30 -Area of Debridement (cm) - Length 0.5 -Area of Debridement (cm) - Width 0.6 -Total Square (Area) (cm) 0.30 -Tunneling No -Undermining/Tunneling No -Circular Undermining No -Wound/Ulcer Outcome Not Healed -Ulcer Cleansing Rinsed/ Irrigated with Saline -Foul Odor after Cleansing No -Bioengineered Tissue No -Type of Bioengineered Tissue Theraskin -Expiration Date 01/21/27 -Product Lot Number [id number] -Percent Used 100 -Bleeding Controlled with Pressure -Treatment Response Procedure Tolerated Well -Debridement - Subq, 1st 20sq cm No -Apply Skin Sub - 1st 25 sq cm - Legs 1 -Theraskin (per sq cm) 3 Pain Scale: 0-10 Numeric Is Patient Pain Free? Yes WC - Nurse 3 - General Ulcer D/C NN Start: 07/18/22 09:02 Freq: Status: Active Protocol: Activity Type Activity Date Activity User E-sign Co-sign Detail Recorded Client Recorded Date Recorded By Document 07/18/22 09:39 FAIZAN [id number] 07/18/22 09:40 FAIZAN 07/18/22 09:39 Wound Care Center Nurse 3 #3 R Lat LE -Ulcer Cleansing Rinsed/ Irrigated with Saline -Foul Odor after Cleansing No -Other Dressing abd pad -Primary Dressing Covered/Secured with Dry Gauze & Roll Gauze, Secured with Tape #2 R Med LE -Ulcer Cleansing Rinsed/ Irrigated with Saline -Foul Odor after Cleansing No -Other Dressing ABD pad -Primary Dressing Covered/Secured with Dry Gauze & Roll Gauze, Secured with Tape Right -Compression Wrap Hank Wrap Pain Scale: 0-10 Numeric Is Patient Pain Free? Yes WC - Visit Discharge Discharge Condition Stable Ambulatory Status Ambulatory,Cane Transportation Hospital transport Medication Reconcilliation completed & Yes provided to patient/care provider Clinical Summary of Care Provided Yes Additional Wound Wound debrided: Right lateral lower extremity Laterality: Right Wound Grade/Stage: Mustafa stage I Type of Debridement: Excisional debridement Anesthesia Used: 5% Lidocaine Gel Depth: Down to and including healthy tissue and in the subcutaneous layer Percentage of wound debrided: 100 Instrument Used: 3mm curette Tissue Removed: Fibrous, devitalized subcutaneous, biofilm, slough Severity: Fat Layer Exposed Amount of bleeding with debridement: Mild Bleeding Controlled with: Compression and gauze Patient tolerated procedure: Patient tolerated procedure well Assessment/Plan Assessment/Plan (1) Non-pressure chronic ulcer of right calf with fat layer exposed: CODE(S): L97.212 - Non-pressure chronic ulcer of right calf with fat layer exposed (2) Raynaud disease: CODE(S): I73.00 - Raynaud's syndrome without gangrene (3) Bilateral lower extremity edema: CODE(S): R60.0 - Localized edema (4) Hypogammaglobulinemia, acquired: CODE(S): D80.1 - Nonfamilial hypogammaglobulinemia (5) HLD (hyperlipidemia): CODE(S): E78.5 - Hyperlipidemia, unspecified QUALIFIERS: Hyperlipidemia type: pure hypercholesterolemia Qualified Code(s): E78.00 - Pure hypercholesterolemia, unspecified; E78.0 - Pure hypercholesterolemia (6) Essential (primary) hypertension: CODE(S): I10 - Essential (primary) hypertension (7) Chronic diastolic (congestive) heart failure: CODE(S): I50.32 - Chronic diastolic (congestive) heart failure PLAN: Plan Patient seen and evaluated Ulceration to the right lateral ankle underwent debridement as noted in clinical panel above.? Ulceration measures 0.6 cm x 0.5 cm x 0.1 cm.? Ulceration demonstrates no signs of infection.? Ulceration was dressed with Olivia and dry sterile dressing.? She may change this dressing daily. Ulceration noted to the posterior aspect of the right lower extremity overlying the distal aspect of the Achilles tendon.? States ulceration is related to shoe gear irritation.? Ulceration underwent debridement as noted in the clinical panel above.? Ulceration measures 0.4cm x 0.4 cm x 0.1 cm.? Ulceration demonstrates no signs of infection.? Ulceration has decreased in size versus previous visit.? She has been approved for advanced wound care product.? Collagen powder was packed into the wound bed along with TheraSkin #8 applied to the wound bed with Adaptic touch and Steri-Strips with dry sterile dressing.? She is to change the outer dressings as needed.? She was instructed to not get the site wet. Ulcerations continue to demonstrate reduction in size versus previous visit. I discussed with her today that the ulceration is in close proximity to the Achilles tendon and this may complicate healing should she get an infection.? She voices understanding of this. Discussed continued use of Tubigrip compression and elevation of lower extremities at all times of rest to aid in edema control. I discussed the signs and symptoms of infection with her today.? She was instructed that if she gets any increasing redness about the wound margins extending up the back of her leg, any purulent drainage from the wound site, increasing foul odor, or if she experiences any fever greater than 101 degree, nausea, vomiting, or chills that these are signs of a progressing infection and she needs to report to the ED.? She voices understanding of this today. The following work up and care recommendations were made: Dressing: TheraSkin, Adaptic touch, Steri-Strips, and dry sterile dressing Wash: Do not get wet Tissue growth optimization: TheraSkin Offload: Ensure the back of the leg is not in direct contact with chair/recliner and remains padded by pillows offloading at all times of rest Vascular: Patient does have adequate DP and PT pulse pulses.? Capillary fill time is adequate to the digits Edema: Continued elevation of the lower extremities at times of rest and Tubigrip compression stocking Infection: No signs of infection Pain: May take [id number] Tylenol extra strength for pain Host factors: Advanced age, edema, Raynaud's/vascular disease ? I answered all the patient's questions.? To return to the wound healing center in 1 week or call sooner if the patient has any questions or concerns.
[2022-07-25 09:41] VITALS: BP 146/64; PULSE 79; RESP 18; TEMP 36.2; BMI 26.3
--- NOTE | 2022-08-01 09:25 | PCM.WC.PN ---
History of Present Illness Date of Service: 08/01/22 Chief Complaint: Right lower extremity wound History of Wound: Patient is an 86-year-old female with history of atherosclerotic disease, peripheral vascular disease, Raynaud's, hyperlipidemia who presented to Dr. Dang office with new wound to the posterior aspect of her right lower extremity secondary to shoe gear rubbing against the back of her leg. States that she was placed on an antibiotic and had been applying antibiotic ointment to the wound. She was seen by me in office last week for her debridement of nails. She stated that she would be seen in the wound care center next week and thus I have not started treatment of the right lower extremity wound performing debridement of the wound in office. She states wound has been present for only a few weeks without improvement prior to seeking care. Subjective Subjective This is an 86-year-old female who presents to the wound care center for follow-up of a right lower extremity posterior leg wound.? She has been changing the outer dressings to the site daily.? Continues to wear open back shoes for offloading of site. She denies constitutional symptoms today.? She has no further complaints today. Objective Data Objective Data Vital Signs: Vital Signs Temp Pulse Resp BP O2 Del Method 97.1 F L 79 18 146/64 H Room Air 07/25/22 09:41 07/25/22 09:41 07/25/22 09:41 07/25/22 09:41 07/18/22 09:02 Oxygen Delivery Method Room Air Weight: 76.204 kg Body Mass Index (BMI) 26.3 Physical Exam Const alert, oriented x3 and no apparent distress General Appearance: cooperative HEENT normocephalic Eyes General Eye: normal appearance of both eyes Neck General: normal visual inspection Lymph Lymphatic: no lymphadenopathy noted and no lymphedema noted Resp normal respiratory effort Cardio regular rate and regular rhythm Extremity normal capillary refill, no calf tenderness and no pedal edema Extremity Narrative: DP and PT pulses weakly palpable.? CFT < 5 seconds and adequate to the digits.? There is bilateral lower extremity edema +2 pitting with purplish discoloration of the entire lower extremity secondary to her peripheral vascular disease and Raynaud's.? There is a wound noted to the posterior right lower extremity overlying the Achilles tendon distally secondary to the heel cup of the shoe rubbing the back of the leg. Skin no rashes or lesions noted, skin turgor normal and no jaundice Wound Narrative: There is a wound noted to the posterior aspect of the right lower extremity at the distal aspect of the Achilles tendon secondary to shoe heel cup rubbing the back of her lower extremity.? Wound base demonstrates fibrogranular tissue however site is close to the Achilles tendon.? No purulent drainage, no malodor, no palpable fluctuance/bogginess, no visible abscess noted.? No signs of infection. Ulceration noted to the right lateral lower extremity demonstrates mixed fibrogranular layer. No purulent drainage, no malodor, no palpable fluctuance/bogginess, no visible abscess noted. Neuro moves all extremities Debridement Note Debridement Note Wound debrided: Right posterior lower extremity Laterality: Right Wound Grade/Stage: Mustafa stage II Type of Debridement: Excisional debridement Anesthesia Used: 5% Lidocaine Gel Depth: Down to and including healthy tissue and in the subcutaneous layer Percentage of wound debrided: 100 Instrument Used: - (1 mm curette) Tissue Removed: fibrous, devitalized subcutaneous, biofilm, slough Severity: Fat Layer Exposed Amount of bleeding with debridement: Mild Bleeding Controlled with: Compression and gauze Patient tolerated procedure: Patient tolerated procedure well Post-Debridement Measurements and Additional Note: Post-Debridement Measurements/Treatment - Nurse 1 - General Ulcer Assessment Start: 07/18/22 09:02 Freq: Status: Active Protocol: ARNOLDO Activity Type Activity Date Activity User E-sign Co-sign Detail Recorded Client Recorded Date Recorded By Document 07/18/22 09:02 [facility] [id number] 07/18/22 09:06 [facility] Document 07/25/22 09:41 [id number] 07/25/22 09:53 07/18/22 07/25/22 09:02 09:41 - Today's Visit Information Type of service Follow-up Visit Follow-up Visit (Physician/STEREOPTIC PROJECTION TOPOGRAPHER (Physician/STEREOPTIC PROJECTION TOPOGRAPHER ) ) Arrival Mode Ambulatory,Cane Ambulatory,Cane Transfer Assistance None Patient Identification Verified (Name & Yes ) Patient Requires Transmission-Based No No Precautions Height and Weight Body Mass Index (BMI) 26.3 26.3 BMI Classification Overweight Overweight Vital Signs Temperature (97.8 F-99.1 F) 96.2 F L 97.1 F L Temperature Source Temporal Temporal Pulse Rate (60-100) 88 79 Pulse Location Monitor Monitor Respiratory Rate (12-18) 16 18 Respiratory rate source Observation Observation Oxygen Delivery Method Room Air Blood Pressure (90/60-120/80) 125/62 H 146/64 H Blood Pressure Mean (mm Hg) 83 91 Source Monitor Monitor Position Sitting Semi-Fowlers Blood Pressure Location Left Arm Left Arm History Since Last Visit- (Skip if this is Patient's initial visit) Have you changed medications since your No No last visit? Any new allergies or adverse reactions No No Had a fall/change in ADL's that may No No increase risk of falls Signs or symptoms of abuse and/or No No neglect since last visit Have you been in the hospital since your No No last visit? Has dressing in place as prescribed Yes Yes Has compression in place as prescribed Yes Yes Has offloadiing in place as prescribed N/A Yes Experienced any changes in pain level or No No management Left Footwear Slipper Regular Shoe Right Footwear Slipper Regular Shoe Pain Scale: 0-10 Numeric Is Patient Pain Free? Yes No right lateral ankle ucer -Description Burning -Duration (hours) Acute -Pain Behavior Facial Grimacing -Pain Aggravating Factors Palpation -Alleviating Factors/Interventions Medication -Effectiveness of Alleviating Factor/ Minimally Intervention effective -Comments ES tylenol WC - Nurse 1 - General Ulcer Measurement Start: 07/18/22 09:02 Freq: Status: Active Protocol: Activity Type Activity Date Activity User E-sign Co-sign Detail Recorded Client Recorded Date Recorded By Document 07/18/22 09:02 [facility] [id number] 07/18/22 09:06 [facility] Document 07/25/22 09:41 [id number] 07/25/22 09:53 07/18/22 07/25/22 09:02 09:41 Wound Center Nurse 1 #3 R Lat LE -Combined with other wound No No -Current Size (cm) - Length 0.6 0.5 -Current Size (cm) - Width 0.5 0.6 -Current Size (cm) - Depth 0.2 0.1 -Total Square Cm 0.30 0.30 -Date of Last Picture (Recall this 07/18/22 field) -Photo Taken Yes Yes -Epithelialization Small 1-33% None Present -Tunneling No No -Undermining/Tunneling No No -Circular Undermining No No -Exudate Amt Medium None Present -Exudate Type Serosanguineous -Wound Margin Distinct, Flat & Intact Outline Attached -Granulation Amt Large (67-100%) None Present (0 %) -Granulation Quality Red -Slough/Fibrin Yes Yes -Necrosis Amt Small (1-33%) Large (67-100%) -Necrotic Tissue Type Adherent Slough Adherent Slough -Structure Exposed N/A -Texture (Chitra-wound Skin Appearance) Assessed, Assessed Scarring -Moisture (Chitra-wound Skin Appearance) Assessed,Dry/ Assessed,Dry/ Scaly Scaly -Color (Chitra-wound Skin Appearance) Assessed Assessed -Temperature (Chitra-wound Skin No Abnormality No Abnormality Appearance) (Pt Warm) (Pt Warm) -Tenderness on Palpation (Chitra-wound No No Skin Appearance) -Ulcer Cleansing Soap and Water Wound Cleanser -Foul Odor after Cleansing No No -Anesthetic Used 4% Lidocaine 5% Lidocaine Solution Gel #2 R Med LE -Combined with other wound No No -Current Size (cm) - Length 0.3 0.4 -Current Size (cm) - Width 0.7 0.6 -Current Size (cm) - Depth 0.1 0.2 -Total Square Cm 0.21 0.24 -Date of Last Picture (Recall this 07/18/22 field) -Photo Taken Yes Yes -Epithelialization Small 1-33% Small 1-33% -Tunneling No No -Undermining/Tunneling No No -Circular Undermining No No -Exudate Amt Medium Small -Exudate Type Serosanguineous -Wound Margin Distinct, Flat & Intact Outline Attached -Granulation Amt Medium (34-66%) Medium (34-66%) -Granulation Quality Red [place] -Slough/Fibrin Yes Yes -Necrosis Amt Medium (34-66%) Small (1-33%) -Necrotic Tissue Type Adherent Slough Adherent Slough -Structure Exposed N/A -Texture (Chitra-wound Skin Appearance) Assessed, Assessed Scarring -Moisture (Chitra-wound Skin Appearance) Assessed,Dry/ Assessed,Dry/ Scaly Scaly -Color (Chitra-wound Skin Appearance) Assessed Assessed -Temperature (Chitra-wound Skin No Abnormality No Abnormality Appearance) (Pt Warm) (Pt Warm) -Tenderness on Palpation (Chitra-wound No No Skin Appearance) -Ulcer Cleansing Soap and Water Wound Cleanser -Foul Odor after Cleansing No No -Anesthetic Used 4% Lidocaine 5% Lidocaine Solution Gel Lower Limb Edema Present Yes Yes Right Calf (cm) 31.2 31.7 Right Ankle (cm) 21.4 22 WC - Nurse 2 - General Ulcer CM Notes Start: 07/18/22 09:02 Freq: Status: Active Protocol: Activity Type Activity Date Activity User E-sign Co-sign Detail Recorded Client Recorded Date Recorded By Document 07/18/22 09:17 PL [id number] 07/18/22 09:31 PL Edit Result 07/18/22 09:17 PL (1) [id number] 07/18/22 11:27 PL Edit Result 07/18/22 09:17 PL (2) [id number] 07/19/22 06:50 PL Document 07/25/22 13:27 PL [id number] 07/25/22 13:30 PL (1) #3 R Lat LE - Bioengineered Tissue No => Yes - Type of Bioengineered Tissue => Theraskin - Expiration Date => 01/21/27 - Product Lot Number => [id number] - Percent Used => 100 - Apply Skin Sub - 1st 25 sq cm - Legs => 1 - Theraskin (per sq cm) => 3 #2 R Med LE - Bioengineered Tissue Yes => No - Product Lot Number [id number] => [id number] (2) #3 R Lat LE - Apply Skin Sub - 1st 25 sq cm - Legs 1 => - Theraskin (per sq cm) 3 => 07/18/22 07/25/22 09:17 13:27 Wound Center Nurse 2 #3 R Lat LE -Time 09:15 10:07 -Correct Patient Yes Yes -Correct Side, Site, Position Yes Yes -Correct Procedure Yes Yes -Procedure Performed Yes Yes -Type of Procedure Debridement Debridement -Clinical Debridement Subcutaneous Subcutaneous -Tissue Removed Epidermis, Subcutaneous Subcutaneous -Post Debridement (cm) - Length 0.5 0.6 -Post Debridement (cm) - Width 0.5 0.5 -Post Debridement (cm) - Depth 0.1 0.1 -Total Square (Post) (cm) 0.25 0.30 -Area of Debridement (cm) - Length 0.5 0.6 -Area of Debridement (cm) - Width 0.5 0.5 -Total Square (Area) (cm) 0.25 0.30 -Tunneling No No -Undermining/Tunneling No No -Circular Undermining No No -Wound/Ulcer Outcome Not Healed Not Healed -Ulcer Cleansing Rinsed/ Rinsed/ Irrigated with Irrigated with Saline Saline -Foul Odor after Cleansing No No -Bioengineered Tissue Yes No -Type of Bioengineered Tissue Theraskin -Expiration Date 01/21/27 -Product Lot Number [id number] -Percent Used 100 -Bleeding Controlled with Pressure Pressure -Treatment Response Procedure Procedure Tolerated Well Tolerated Well -Debridement - Subq, 1st 20sq cm No No #2 R Med LE -Time 09:15 10:07 -Correct Patient Yes Yes -Correct Side, Site, Position Yes Yes -Correct Procedure Yes Yes -Procedure Performed Yes Yes -Type of Procedure Debridement Debridement -Clinical Debridement Subcutaneous Subcutaneous -Tissue Removed Subcutaneous Subcutaneous -Post Debridement (cm) - Length 0.5 0.4 -Post Debridement (cm) - Width 0.6 0.4 -Post Debridement (cm) - Depth 0.1 0.1 -Total Square (Post) (cm) 0.30 0.16 -Area of Debridement (cm) - Length 0.5 0.4 -Area of Debridement (cm) - Width 0.6 0.4 -Total Square (Area) (cm) 0.30 0.16 -Tunneling No No -Undermining/Tunneling No No -Circular Undermining No No -Wound/Ulcer Outcome Not Healed Not Healed -Ulcer Cleansing Rinsed/ Rinsed/ Irrigated with Irrigated with Saline Saline -Foul Odor after Cleansing No No -Bioengineered Tissue No Yes -Type of Bioengineered Tissue Theraskin Theraskin -Expiration Date 01/21/27 01/21/27 -Product Lot Number [id number] -Percent Used 100 100 -Bleeding Controlled with Pressure Pressure -Treatment Response Procedure Procedure Tolerated Well Tolerated Well -Debridement - Subq, 1st 20sq cm No No -Apply Skin Sub - 1st 25 sq cm - Legs 1 1 -Theraskin (per sq cm) 3 3 Pain Scale: 0-10 Numeric Is Patient Pain Free? Yes Yes WC - Nurse 3 - General Ulcer D/C NN Start: 07/18/22 09:02 Freq: Status: Active Protocol: Activity Type Activity Date Activity User E-sign Co-sign Detail Recorded Client Recorded Date Recorded By Document 07/18/22 09:39 FAIZAN [id number] 07/18/22 09:40 Document 07/25/22 10:27 RB [id number] 07/25/22 10:27 RB 07/18/22 07/25/22 09:39 10:27 Wound Care Center Nurse 3 #3 R Lat LE -Ulcer Cleansing Rinsed/ Irrigated with Saline -Foul Odor after Cleansing No -Other Dressing abd pad -Primary Dressing Covered/Secured with Dry Gauze & Dry Gauze,Dry Roll Gauze, Gauze & Roll Secured with Gauze,Secured Tape with Tape #2 R Med LE -Ulcer Cleansing Rinsed/ Irrigated with Saline -Foul Odor after Cleansing No -Other Dressing ABD pad -Primary Dressing Covered/Secured with Dry Gauze & Dry Gauze,Dry Roll Gauze, Gauze & Roll Secured with Gauze,Secured Tape with Tape Right -Compression Wrap Hank Wrap Treatment Response Procedure Tolerated Well Pain Scale: 0-10 Numeric Is Patient Pain Free? Yes Yes WC - Visit Discharge Discharge Condition Stable Stable Ambulatory Status Ambulatory,Cane Ambulatory,Cane Transportation Hospital Private Auto transport Medication Reconcilliation completed & Yes No provided to patient/care provider Clinical Summary of Care Provided Yes Yes Additional Wound Wound debrided: Right lateral leg Laterality: Right Wound Grade/Stage: Mustafa stage I Anesthesia Used: 5% Lidocaine Gel Depth: Down to and including healthy tissue and in the subcutaneous layer Percentage of wound debrided: 100 Instrument Used: - (1 mm curette) Tissue Removed: Fibrous, devitalized subcutaneous, biofilm, slough Severity: Fat Layer Exposed Amount of bleeding with debridement: Mild Bleeding Controlled with: Compression and gauze Patient tolerated procedure: Patient tolerated procedure well Assessment/Plan Assessment/Plan (1) Non-pressure chronic ulcer of right calf with fat layer exposed: CODE(S): L97.212 - Non-pressure chronic ulcer of right calf with fat layer exposed (2) Raynaud disease: CODE(S): I73.00 - Raynaud's syndrome without gangrene (3) Bilateral lower extremity edema: CODE(S): R60.0 - Localized edema (4) Hypogammaglobulinemia, acquired: CODE(S): D80.1 - Nonfamilial hypogammaglobulinemia (5) HLD (hyperlipidemia): CODE(S): E78.5 - Hyperlipidemia, unspecified QUALIFIERS: Hyperlipidemia type: pure hypercholesterolemia Qualified Code(s): E78.00 - Pure hypercholesterolemia, unspecified; E78.0 - Pure hypercholesterolemia (6) Essential (primary) hypertension: CODE(S): I10 - Essential (primary) hypertension (7) Chronic diastolic (congestive) heart failure: CODE(S): I50.32 - Chronic diastolic (congestive) heart failure PLAN: Plan Patient seen and evaluated Ulceration to the right lateral ankle underwent debridement as noted in clinical panel above.? Ulceration measures 0.5 cm x 0.5 cm x 0.1 cm.? Ulceration demonstrates no signs of infection.? Ulceration was dressed with Olivia and dry sterile dressing.? She may change this dressing daily. Ulceration noted to the posterior aspect of the right lower extremity overlying the distal aspect of the Achilles tendon.? States ulceration is related to shoe gear irritation.? Ulceration underwent debridement as noted in the clinical panel above.? Ulceration measures 0.3cm x 0.3 cm x 0.1 cm.? Ulceration demonstrates no signs of infection.? Ulceration has decreased in size versus previous visit.? She has been approved for advanced wound care product.? Collagen powder was packed into the wound bed along with TheraSkin #9 applied to the wound bed with Adaptic touch and Steri-Strips with dry sterile dressing.? She is to change the outer dressings as needed.? She was instructed to not get the site wet. Ulcerations continue to demonstrate reduction in size versus previous visit. I discussed with her today that the ulceration is in close proximity to the Achilles tendon and this may complicate healing should she get an infection.? She voices understanding of this. Discussed continued use of Tubigrip compression and elevation of lower extremities at all times of rest to aid in edema control. I discussed the signs and symptoms of infection with her today.? She was instructed that if she gets any increasing redness about the wound margins extending up the back of her leg, any purulent drainage from the wound site, increasing foul odor, or if she experiences any fever greater than 101 degree, nausea, vomiting, or chills that these are signs of a progressing infection and she needs to report to the ED.? She voices understanding of this today. The following work up and care recommendations were made: Dressing: TheraSkin, Adaptic touch, Steri-Strips, and dry sterile dressing Wash: Do not get wet Tissue growth optimization: TheraSkin Offload: Ensure the back of the leg is not in direct contact with chair/recliner and remains padded by pillows offloading at all times of rest Vascular: Patient does have adequate DP and PT pulse pulses.? Capillary fill time is adequate to the digits Edema: Continued elevation of the lower extremities at times of rest and Tubigrip compression stocking Infection: No signs of infection Pain: May take [id number] Tylenol extra strength for pain Host factors: Advanced age, edema, Raynaud's/vascular disease ? I answered all the patient's questions.? To return to the wound healing center in 2 weeks or call sooner if the patient has any questions or concerns.
[2022-08-01 09:42] VITALS: TEMP 35.7; BMI 26.3
== END 2022-08-11 23:59 | disposition home or self-care (01) ==
LOC: WC 09:30
PROVIDERS: PCP Internal Medicine; Visit Provider Student in an Organized Health Care Education/Training Program
DX: I11.0 Hypertensive heart disease with heart failure (principal); E11.622 Type 2 diabetes mellitus with other skin ulcer; D80.1 Nonfamilial hypogammaglobulinemia; E11.51 Type 2 diabetes mellitus with diabetic peripheral angiopathy without gangrene; L97.212 Non-pressure chronic ulcer of right calf with fat layer exposed; I50.32 Chronic diastolic (congestive) heart failure; E78.00 Pure hypercholesterolemia, unspecified; I73.00 Raynaud's syndrome without gangrene; M79.606 Pain in leg, unspecified; R60.0 Localized edema
CPT/HCPCS: 15271; Q4121

== ENCOUNTER 2022-09-05 09:00 | Outpatient (RCR) | payer MEDICARE, OTHER, SELFPAY ==
[2022-08-12 00:38] VITALS: BP 146/64; PULSE 79; RESP 18; TEMP 35.7; BMI 26.3
[2022-08-15 09:09] VITALS: BP 152/65; PULSE 80; TEMP 36.3; BMI 26.3
--- NOTE | 2022-08-15 09:12 | PN.PCM_ITS ---
History of Present Illness Date of Service: 08/15/22 Chief Complaint: Right lower extremity wound History of Wound: Patient is an 86-year-old female with history of atherosclerotic disease, peripheral vascular disease, Raynaud's, hyperlipidemia who presented to Dr. Dang office with new wound to the posterior aspect of her right lower extremity secondary to shoe gear rubbing against the back of her leg. States that she was placed on an antibiotic and had been applying antibiotic ointment to the wound. She was seen by me in office last week for her debridement of nails. She stated that she would be seen in the wound care center next week and thus I have not started treatment of the right lower extremity wound performing debridement of the wound in office. She states wound has been present for only a few weeks without improvement prior to seeking care. Subjective Subjective This is an 86-year-old female who presents to the wound care center for follow- up of a right lower extremity wound x 2.? She has been changing the outer dressings to the site daily.? Continues to wear open back shoes for offloading of site. She denies constitutional symptoms today.? She has no further complaints today. Objective Data Objective Data Vital Signs: Vital Signs Temp Pulse Resp BP 96.2 F L 79 18 146/64 H 08/12/22 00:38 08/12/22 00:38 08/12/22 00:38 08/12/22 00:38 Weight: 76.204 kg Body Mass Index (BMI) 26.3 Physical Exam Const alert, oriented x3 and no apparent distress General Appearance: cooperative HEENT normocephalic Eyes General Eye: normal appearance of both eyes Neck General: normal visual inspection Lymph Lymphatic: no lymphadenopathy noted and no lymphedema noted Resp normal respiratory effort Cardio regular rate and regular rhythm Extremity normal capillary refill, no calf tenderness and no pedal edema Extremity Narrative: DP and PT pulses weakly palpable.? CFT < 5 seconds and adequate to the digits.? There is bilateral lower extremity edema +2 pitting with purplish discoloration of the entire lower extremity secondary to her peripheral vascular disease and Raynaud's.? There is a wound noted to the posterior right lower extremity overlying the Achilles tendon distally secondary to the heel cup of the shoe rubbing the back of the leg. Skin no rashes or lesions noted, skin turgor normal and no jaundice Wound Narrative: There is a wound noted to the posterior aspect of the right lower extremity at the distal aspect of the Achilles tendon secondary to shoe heel cup rubbing the back of her lower extremity.? Wound base demonstrates fibrogranular tissue however site is close to the Achilles tendon.? No purulent drainage, no malodor, no palpable fluctuance/bogginess, no visible abscess noted.? No signs of infection. Ulceration noted to the right lateral lower extremity demonstrates mixed fibrogranular layer.? No purulent drainage, no malodor, no palpable fluctuance/bogginess, no visible abscess noted. Neuro moves all extremities Debridement Note Debridement Note Wound debrided: Right posterior leg Laterality: Right Wound Grade/Stage: Mustafa stage II Type of Debridement: Excisional debridement Anesthesia Used: 5% Lidocaine Gel Depth: Down to and including healthy tissue and in the subcutaneous layer Percentage of wound debrided: 100 Instrument Used: - (1 mm curette) Tissue Removed: Fibrous, devitalized subcutaneous, biofilm, slough Severity: Fat Layer Exposed Amount of bleeding with debridement: Mild Bleeding Controlled with: Compression and gauze Patient tolerated procedure: Patient tolerated procedure well Additional Wound Wound debrided: Right lateral ankle Laterality: Right Wound Grade/Stage: Mustafa stage I Type of Debridement: Excisional debridement Anesthesia Used: 5% Lidocaine Gel Depth: Down to and including healthy tissue and in the subcutaneous layer Percentage of wound debrided: 100 Instrument Used: - (1 mm curette) Tissue Removed: Fibrous, devitalized subcutaneous, biofilm, slough Severity: Fat Layer Exposed Amount of bleeding with debridement: Mild Bleeding Controlled with: Compression and gauze Patient tolerated procedure: Patient tolerated procedure well Assessment/Plan Assessment/Plan (1) Non-pressure chronic ulcer of right calf with fat layer exposed: CODE(S): L97.212 - Non-pressure chronic ulcer of right calf with fat layer exposed (2) Raynaud disease: CODE(S): I73.00 - Raynaud's syndrome without gangrene (3) Bilateral lower extremity edema: CODE(S): R60.0 - Localized edema (4) Hypogammaglobulinemia, acquired: CODE(S): D80.1 - Nonfamilial hypogammaglobulinemia (5) HLD (hyperlipidemia): CODE(S): E78.5 - Hyperlipidemia, unspecified QUALIFIERS: Hyperlipidemia type: pure hypercholesterolemia Qualified Code(s): E78.00 - Pure hypercholesterolemia, unspecified; E78.0 - Pure hypercholesterolemia (6) Essential (primary) hypertension: CODE(S): I10 - Essential (primary) hypertension (7) Chronic diastolic (congestive) heart failure: CODE(S): I50.32 - Chronic diastolic (congestive) heart failure PLAN: Plan Patient seen and evaluated Ulceration to the right lateral ankle underwent debridement as noted in clinical panel above.? Ulceration measures 0.5 cm x 0.5 cm x 0.1 cm.? Ulceration demonstrates no signs of infection.? Ulceration was dressed with Olivia and dry sterile dressing.? She may change this dressing daily. Ulceration noted to the posterior aspect of the right lower extremity overlying the distal aspect of the Achilles tendon.? States ulceration is related to shoe gear irritation.? Ulceration underwent debridement as noted in the clinical panel above.? Ulceration measures 0.2cm x 0.2 cm x 0.1 cm.? Ulceration demonstrates no signs of infection.? Ulceration has decreased in size versus previous visit.? She has been approved for advanced wound care product.? Collagen powder was packed into the wound bed along with TheraSkin #10 applied to the wound bed with Adaptic touch and Steri-Strips with dry sterile dressing.? She is to change the outer dressings as needed.? She was instructed to not get the site wet. Ulcerations continue to demonstrate reduction in size versus previous visit. I discussed with her today that the ulceration is in close proximity to the Achilles tendon and this may complicate healing should she get an infection.? She voices understanding of this. Discussed continued use of Tubigrip compression and elevation of lower extremities at all times of rest to aid in edema control. I discussed the signs and symptoms of infection with her today.? She was instructed that if she gets any increasing redness about the wound margins extending up the back of her leg, any purulent drainage from the wound site, increasing foul odor, or if she experiences any fever greater than 101 degree, nausea, vomiting, or chills that these are signs of a progressing infection and she needs to report to the ED.? She voices understanding of this today. The following work up and care recommendations were made: Dressing: TheraSkin, Adaptic touch, Steri-Strips, and dry sterile dressing Wash: Do not get wet Tissue growth optimization: TheraSkin Offload: Ensure the back of the leg is not in direct contact with chair/recliner and remains padded by pillows offloading at all times of rest Vascular: Patient does have adequate DP and PT pulse pulses.? Capillary fill time is adequate to the digits Edema: Continued elevation of the lower extremities at times of rest and Tubigrip compression stocking Infection: No signs of infection Pain: May take [id number] Tylenol extra strength for pain Host factors: Advanced age, edema, Raynaud's/vascular disease ? I answered all the patient's questions.? To return to the wound healing center in 2 weeks or call sooner if the patient has any questions or concerns.
[2022-08-29 09:16] VITALS: BP 148/68; PULSE 83; RESP 20; TEMP 36; BMI 26.3
--- NOTE | 2022-08-29 09:53 | PN.PCM_ITS ---
History of Present Illness Chief Complaint: Right lower extremity wound History of Wound: Patient is an 86-year-old female with history of atherosclerotic disease, peripheral vascular disease, Raynaud's, hyperlipidemia who presented to Dr. Dang office with new wound to the posterior aspect of her right lower extremity secondary to shoe gear rubbing against the back of her leg. States that she was placed on an antibiotic and had been applying antibiotic ointment to the wound. She was seen by me in office last week for he r debridement of nails. She stated that she would be seen in the wound care center next week and thus I have not started treatment of the right lower extremity wound performing debridement of the wound in office. She states wound has been present for only a few weeks without improvement prior to seeking care. Subjective Subjective This is an 86-year-old female who presents to the wound care center for follow- up of a right lower extremity wound x 2.? She has been changing the outer dressings to the site daily.? Continues to wear open back shoes for offloading of site. She denies constitutional symptoms today.? She has no further complaints today. Objective Data Objective Data Vital Signs: Vital Signs Temp Pulse Resp BP 96.8 F L 83 20 H 148/68 H 08/29/22 09:16 08/29/22 09:16 08/29/22 09:16 08/29/22 09:16 Weight: 76.204 kg Body Mass Index (BMI) 26.3 Physical Exam Const alert, oriented x3 and no apparent distress General Appearance: cooperative HEENT normocephalic Eyes General Eye: normal appearance of both eyes Neck General: normal visual inspection Lymph Lymphatic: no lymphadenopathy noted and no lymphedema noted Resp normal respiratory effort Cardio regular rate and regular rhythm Extremity normal capillary refill, no calf tenderness and no pedal edema Extremity Narrative: DP and PT pulses weakly palpable.? CFT < 5 seconds and adequate to the digits.? There is bilateral lower extremity edema +2 pitting with purplish discoloration of the entire lower extremity secondary to her peripheral vascular disease and Raynaud's.? There is a wound noted to the posterior right lower extremity overlying the Achilles tendon distally secondary to the heel cup of the shoe rubbing the back of the leg. Skin no rashes or lesions noted, skin turgor normal and no jaundice Wound Narrative: There is a wound noted to the posterior aspect of the right lower extremity at the distal aspect of the Achilles tendon secondary to shoe heel cup rubbing the back of her lower extremity.? Wound base demonstrates fibrogranular tissue however site is close to the Achilles tendon.? No purulent drainage, no malodor, no palpable fluctuance/bogginess, no visible abscess noted.? No signs of infection. Ulceration noted to the right lateral lower extremity demonstrates mixed f ibrogranular layer.? No purulent drainage, no malodor, no palpable fluctuance/bogginess, no visible abscess noted. Neuro moves all extremities Debridement Note Debridement Note Post-Debridement Measurements and Additional Note: Post-Debridement Measurements/Treatment - Nurse 1 - General Ulcer Assessment Start: 08/15/22 09:09 Freq: Status: Active Protocol: ARNOLDO Activity Type Activity Date Activity User E-sign Co-sign Detail Recorded Client Recorded Date Recorded By Document 08/15/22 09:09 PL [id number] 08/15/22 09:19 PL Document 08/29/22 09:16 DL [id number] 08/29/22 09:27 DL 08/15/22 08/29/22 09:09 09:16 - Today's Visit Information Type of service Follow-up Visit Follow-up Visit (Physician/RUG DESIGNER (Physician/RUG DESIGNER ) ) Arrival Mode Ambulatory Ambulatory,Cane Transfer Assistance None,Other None Patient Identification Verified (Name & Yes Yes ) Patient Requires Transmission-Based No No Precautions Safety Precautions NA Height and Weight Body Mass Index (BMI) 26.3 26.3 BMI Classification Overweight Overweight Vital Signs Temperature (97.8 F-99.1 F) 97.4 F L 96.8 F L Temperature Source Temporal Temporal Pulse Rate (60-100) 80 83 Pulse Location Monitor Respiratory Rate (12-18) 20 H Respiratory rate source Observation Blood Pressure (90/60-120/80) 152/65 H 148/68 H Blood Pressure Mean (mm Hg) 94 94 Source Monitor History Since Last Visit- (Skip if this is Patient's initial visit) Have you changed medications since your No No last visit? Any new allergies or adverse reactions No No Had a fall/change in ADL's that may No No increase risk of falls Signs or symptoms of abuse and/or No No neglect since last visit Have you been in the hospital since your No No last visit? Has dressing in place as prescribed Yes Yes Has compression in place as prescribed Yes No Has offloadiing in place as prescribed N/A No Experienced any changes in pain level or No management Left Footwear Regular Shoe Right Footwear Regular Shoe Pain Scale: 0-10 Numeric Is Patient Pain Free? Yes Yes WC - Nurse 1 - General Ulcer Measurement Start: 08/15/22 09:09 Freq: Status: Active Protocol: Activity Type Activity Date Activity User E-sign Co-sign Detail Recorded Client Recorded Date Recorded By Document 08/15/22 09:09 PL [id number] 08/15/22 09:19 PL Document 08/29/22 09:16 DL [id number] 08/29/22 09:27 DL 08/15/22 08/29/22 09:09 09:16 Wound Center Nurse 1 #3 R Lat LE -Combined with other wound No -Current Size (cm) - Length 0.3 0.5 -Current Size (cm) - Width 0.3 0.5 -Current Size (cm) - Depth 0.2 0.2 -Total Square Cm 0.09 0.25 -Photo Taken No Yes -Epithelialization Large 67-100% -Tunneling No -Undermining/Tunneling No -Circular Undermining No -Exudate Amt Small None Present -Exudate Type Serosanguineous -Wound Margin Distinct, Outline Attached -Granulation Amt Large (67-100%) Small (1-33%) -Granulation Quality [place] -Slough/Fibrin Yes -Necrosis Amt Small (1-33%) Small (1-33%) -Necrotic Tissue Type Adherent Slough Adherent Slough -Structure Exposed N/A -Texture (Chitra-wound Skin Appearance) No Abnormality Scarring -Moisture (Chitra-wound Skin Appearance) No Abnormality Dry/Scaly -Color (Chitra-wound Skin Appearance) Assessed Hemosiderin Staining -Temperature (Chitra-wound Skin No Abnormality Appearance) (Pt Warm) -Tenderness on Palpation (Chitra-wound No Skin Appearance) -Ulcer Cleansing Soap and Water Soap and Water -Foul Odor after Cleansing No -Anesthetic Used 5% Lidocaine 5% Lidocaine Gel Gel #2 R Med LE -Combined with other wound No -Current Size (cm) - Length 0.3 0.1 -Current Size (cm) - Width 0.3 0.1 -Current Size (cm) - Depth 0.1 0.1 -Total Square Cm 0.09 0.01 -Photo Taken No Yes -Epithelialization Large 67-100% -Undermining/Tunneling No -Circular Undermining No -Exudate Amt None Present None Present -Exudate Type Serosanguineous -Wound Margin Thickened -Granulation Amt Large (67-100%) Small (1-33%) -Granulation Quality [place] -Slough/Fibrin Yes -Necrosis Amt Small (1-33%) Small (1-33%) -Necrotic Tissue Type Adherent Slough Adherent Slough -Structure Exposed N/A -Texture (Chitra-wound Skin Appearance) Scarring -Moisture (Chitra-wound Skin Appearance) Dry/Scaly -Color (Chitra-wound Skin Appearance) Hemosiderin Staining -Temperature (Chitra-wound Skin No Abnormality Appearance) (Pt Warm) -Tenderness on Palpation (Chitra-wound No Skin Appearance) -Ulcer Cleansing Soap and Water Soap and Water -Foul Odor after Cleansing No No -Anesthetic Used 5% Lidocaine 5% Lidocaine Gel Gel Right Calf (cm) 29.5 Right Ankle (cm) 21.7 WC - Nurse 2 - General Ulcer CM Notes Start: 08/15/22 09:09 Freq: Status: Active Protocol: Activity Type Activity Date Activity User E-sign Co-sign Detail Recorded Client Recorded Date Recorded By Document 08/15/22 09:31 FAIZAN [id number] 08/15/22 09:34 FAIZAN 08/15/22 09:31 Wound Center Nurse 2 #3 R Lat LE -Time 09:32 -Correct Patient Yes -Correct Side, Site, Position Yes -Correct Procedure Yes -Procedure Performed Yes -Type of Procedure Debridement -Clinical Debridement Subcutaneous -Tissue Removed Subcutaneous -Post Debridement (cm) - Length 0.5 -Post Debridement (cm) - Width 0.5 -Post Debridement (cm) - Depth 0.1 -Total Square (Post) (cm) 0.25 -Area of Debridement (cm) - Length 0.5 -Area of Debridement (cm) - Width 0.5 -Total Square (Area) (cm) 0.25 -Tunneling No -Undermining/Tunneling No -Circular Undermining No -Wound/Ulcer Outcome Not Healed -Ulcer Cleansing Rinsed/ Irrigated with Saline -Foul Odor after Cleansing No -Bioengineered Tissue No -Bleeding Controlled with Pressure -Treatment Response Procedure Tolerated Well -Offloading No -Debridement - Subq, 1st 20sq cm Yes #2 R Med LE -Time 09:32 -Correct Patient Yes -Correct Side, Site, Position Yes -Correct Procedure Yes -Procedure Performed Yes -Type of Procedure Debridement -Clinical Debridement Subcutaneous -Tissue Removed Subcutaneous -Post Debridement (cm) - Length 0.2 -Post Debridement (cm) - Width 0.2 -Post Debridement (cm) - Depth 0.1 -Total Square (Post) (cm) 0.04 -Area of Debridement (cm) - Length 0.2 -Area of Debridement (cm) - Width 0.2 -Total Square (Area) (cm) 0.04 -Tunneling No -Undermining/Tunneling No -Circular Undermining No -Wound/Ulcer Outcome Not Healed -Ulcer Cleansing Rinsed/ Irrigated with Saline -Foul Odor after Cleansing No -Bioengineered Tissue Yes -Type of Bioengineered Tissue Theraskin -Expiration Date 02/27/27 -Product Lot Number [id number] -Percent Used 100 -Lot number of Saline Used [id number] -Bleeding Controlled with Pressure -Treatment Response Procedure Tolerated Well -Offloading No -Debridement - Subq, 1st 20sq cm No -Apply Skin Sub - 1st 25 sq cm - Legs 1 -Theraskin (per sq cm) 3 Pain Scale: 0-10 Numeric Is Patient Pain Free? Yes - Nurse 3 - General Ulcer D/C NN Start: 08/15/22 09:09 Freq: Status: Active Protocol: Activity Type Activity Date Activity User E-sign Co-sign Detail Recorded Client Recorded Date Recorded By Document 08/15/22 09:42 PL [id number] 08/15/22 09:43 PL 08/15/22 09:42 Wound Care Center Nurse 3 #3 R Lat LE -Primary Dressing Covered/Secured with Dry Gauze & Roll Gauze, Secured with Tape #2 R Med LE -Primary Dressing Covered/Secured with Dry Gauze & Roll Gauze, Secured with Tape Pain Scale: 0-10 Numeric Is Patient Pain Free? Yes - Visit Discharge Discharge Condition Stable Ambulatory Status Ambulatory Assessment/Plan Assessment/Plan (1) Non-pressure chronic ulcer of right calf with fat layer exposed: CODE(S): L97.212 - Non-pressure chronic ulcer of right calf with fat layer exposed (2) Raynaud disease: CODE(S): I73.00 - Raynaud's syndrome without gangrene (3) Bilateral lower extremity edema: CODE(S): R60.0 - Localized edema (4) Hypogammaglobulinemia, acquired: CODE(S): D80.1 - Nonfamilial hypogammaglobulinemia (5) HLD (hyperlipidemia): CODE(S): E78.5 - Hyperlipidemia, unspecified QUALIFIERS: Hyperlipidemia type: pure hypercholesterolemia Qualified Code(s): E78.00 - Pure hypercholesterolemia, unspecified; E78.0 - Pure hypercholesterolemia (6) Essential (primary) hypertension: CODE(S): I10 - Essential (primary) hypertension (7) Chronic diastolic (congestive) heart failure: CODE(S): I50.32 - Chronic diastolic (congestive) heart failure PLAN: Plan Patient seen and evaluated Ulceration to the right lateral ankle underwent debridement as noted in clinical panel above.? Ulceration measures 0.5 cm x 0.5 cm x 0.1 cm.? Ulceration demonstrates no signs of infection.? Ulceration was dressed with Olivia and dry sterile dressing.? She may change this dressing daily. Ulceration noted to the posterior aspect of the right lower extremity overlying the distal aspect of the Achilles tendon.? States ulceration is related to shoe gear irritation.? Ulceration underwent debridement as noted in the clinical panel above.? Ulceration measures 0.2cm x 0.2 cm x 0.1 cm.? Ulceration demonstrates no signs of infection.? Ulceration has decreased in size versus previous visit.? She has been approved for advanced wound care product.? Collagen powder was packed into the wound bed along with TheraSkin #10 applied to the wound bed with Adaptic touch and Steri-Strips with dry sterile dressing.? She is to change the outer dressings as needed.? She was instructed to not get the site wet. Ulcerations continue to demonstrate reduction in size versus previous visit. I discussed with her today that the ulceration is in close proximity to the Achilles tendon and this may complicate healing should she get an infection.? She voices understanding of this. Discussed continued use of Tubigrip compression and elevation of lower extremities at all times of rest to aid in edema control. I discussed the signs and symptoms of infection with her today.? She was instructed that if she gets any increasing redness about the wound margins extending up the back of her leg, any purulent drainage from the wound site, increasing foul odor, or if she experiences any fever greater than 101 degree, nausea, vomiting, or chills that these are signs of a progressing infection and she needs to report to the ED.? She voices understanding of this today. The following work up and care recommendations were made: Dressing: TheraSkin, Adaptic touch, Steri-Strips, and dry sterile dressing Wash: Do not get wet Tissue growth optimization: TheraSkin Offload: Ensure the back of the leg is not in direct contact with chair/recliner and remains padded by pillows offloading at all times of rest Vascular: Patient does have adequate DP and PT pulse pulses.? Capillary fill time is adequate to the digits Edema: Continued elevation of the lower extremities at times of rest and Tubigrip compression stocking Infection: No signs of infection Pain: May take [id number] Tylenol extra strength for pain Host factors: Advanced age, edema, Raynaud's/vascular disease ? I answered all the patient's questions.? To return to the wound healing center in 2 weeks or call sooner if the patient has any questions or concerns.
[2022-09-05 09:07] VITALS: BP 154/64; PULSE 79; RESP 16; TEMP 35.1; BMI 26.3
--- NOTE | 2022-09-05 09:12 | PCM.WC.PN ---
History of Present Illness Date of Service: 09/05/22 Chief Complaint: Right lower extremity wound History of Wound: Patient is an 86-year-old female with history of atherosclerotic disease, peripheral vascular disease, Raynaud's, hyperlipidemia who presented to Dr. Dang office with new wound to the posterior aspect of her right lower extremity secondary to shoe gear rubbing against the back of her leg. States that she was placed on an antibiotic and had been applying antibiotic ointment to the wound. She was seen by me in office last week for her debridement of nails. She stated that she would be seen in the wound care center next week and thus I have not started treatment of the right lower extremity wound performing debridement of the wound in office. She states wound has been present for only a few weeks without improvement prior to seeking care. Subjective Subjective This is an 86-year-old female who presents to the wound care center for follow-up of a right lower extremity wound.? She has been changing the outer dressings to the site daily.? Continues to wear open back shoes for offloading of site. She denies constitutional symptoms today.? She has no further complaints today. Objective Data Objective Data Vital Signs: Vital Signs Temp Pulse Resp BP 95.2 F L 79 16 154/64 H 09/05/22 09:07 09/05/22 09:07 09/05/22 09:07 09/05/22 09:07 Weight: 76.204 kg Body Mass Index (BMI) 26.3 Physical Exam Const alert, oriented x3 and no apparent distress General Appearance: cooperative HEENT normocephalic Eyes General Eye: normal appearance of both eyes Neck General: normal visual inspection Lymph Lymphatic: no lymphadenopathy noted and no lymphedema noted Resp normal respiratory effort Cardio regular rate and regular rhythm Extremity normal capillary refill, no calf tenderness and no pedal edema Extremity Narrative: DP and PT pulses weakly palpable.? CFT < 5 seconds and adequate to the digits.? There is bilateral lower extremity edema +2 pitting with purplish discoloration of the entire lower extremity secondary to her peripheral vascular disease and Raynaud's.? There is a wound noted to the posterior right lower extremity overlying the Achilles tendon distally secondary to the heel cup of the shoe rubbing the back of the leg. Skin no rashes or lesions noted, skin turgor normal and no jaundice Wound Narrative: There is a wound noted to the posterior aspect of the right lower extremity at the distal aspect of the Achilles tendon secondary to shoe heel cup rubbing the back of her lower extremity.? Wound base has healed. No signs of infection. Ulceration noted to the right lateral lower extremity demonstrates mixed fibrogranular layer.? No purulent drainage, no malodor, no palpable fluctuance/bogginess, no visible abscess noted. Neuro moves all extremities Debridement Note Debridement Note Wound debrided: Right lateral ankle Laterality: Right Wound Grade/Stage: Mustafa stage I Type of Debridement: Excisional debridement Anesthesia Used: 5% Lidocaine Gel Depth: Down to and including healthy tissue and in the subcutaneous layer Percentage of wound debrided: 100 Instrument Used: - (1 mm curette) Tissue Removed: Fibrous, devitalized subcutaneous, biofilm, slough Severity: Fat Layer Exposed Amount of bleeding with debridement: Mild Bleeding Controlled with: Compression and gauze Patient tolerated procedure: Patient tolerated procedure well Post-Debridement Measurements and Additional Note: Post-Debridement Measurements/Treatment - Nurse 1 - General Ulcer Assessment Start: 08/15/22 09:09 Freq: Status: Active Protocol: ARNOLDO Activity Type Activity Date Activity User E-sign Co-sign Detail Recorded Client Recorded Date Recorded By Document 08/15/22 09:09 PL [id number] 08/15/22 09:19 PL Document 08/29/22 09:16 DL [id number] 08/29/22 09:27 DL Document 09/05/22 09:07 [id number] 09/05/22 09:08 08/15/22 08/29/22 09/05/22 09:09 09:16 09:07 - Today's Visit Information Type of service Follow-up Visit Follow-up Visit Follow-up Visit (Physician/RODENT EXTERMINATOR (Physician/RODENT EXTERMINATOR (Physician/RODENT EXTERMINATOR ) ) ) Arrival Mode Ambulatory Ambulatory,Cane Ambulatory,Cane Transfer Assistance None,Other None Patient Identification Verified (Name & Yes Yes Yes ) Patient Requires Transmission-Based No No No Precautions Safety Precautions NA Height and Weight Body Mass Index (BMI) 26.3 26.3 26.3 BMI Classification Overweight Overweight Overweight Vital Signs Temperature (97.8 F-99.1 F) 97.4 F L 96.8 F L 95.2 F L Temperature Source Temporal Temporal Temporal Pulse Rate (60-100) 80 83 79 Pulse Location Monitor Monitor Respiratory Rate (12-18) 20 H 16 Respiratory rate source Observation Observation Blood Pressure (90/60-120/80) 152/65 H 148/68 H 154/64 H Blood Pressure Mean (mm Hg) 94 94 94 Source Monitor Monitor Position Semi-Fowlers Blood Pressure Location Left Arm History Since Last Visit- (Skip if this is Patient's initial visit) Have you changed medications since your No No No last visit? Any new allergies or adverse reactions No No No Had a fall/change in ADL's that may No No No increase risk of falls Signs or symptoms of abuse and/or No No No neglect since last visit Have you been in the hospital since your No No No last visit? Has dressing in place as prescribed Yes Yes Yes Has compression in place as prescribed Yes No N/A Has offloadiing in place as prescribed N/A No N/A Experienced any changes in pain level or No No management Left Footwear Regular Shoe Regular Shoe Right Footwear Regular Shoe Regular Shoe Pain Scale: 0-10 Numeric Is Patient Pain Free? Yes Yes Yes - Nurse 1 - General Ulcer Measurement Start: 08/15/22 09:09 Freq: Status: Active Protocol: Activity Type Activity Date Activity User E-sign Co-sign Detail Recorded Client Recorded Date Recorded By Document 08/15/22 09:09 [id number] 08/15/22 09:19 Document 08/29/22 09:16 DL [id number] 08/29/22 09:27 DL Document 09/05/22 09:07 [id number] 09/05/22 09:08 08/15/22 08/29/22 09/05/22 09:09 09:16 09:07 Wound Center Nurse 1 #2 R Med LE -Combined with other wound No -Current Size (cm) - Length 0.3 0.1 -Current Size (cm) - Width 0.3 0.1 -Current Size (cm) - Depth 0.1 0.1 -Total Square Cm 0.09 0.01 -Photo Taken No Yes -Epithelialization Large 67-100% -Undermining/Tunneling No -Circular Undermining No -Exudate Amt None Present None Present -Exudate Type Serosanguineous -Wound Margin Thickened -Granulation Amt Large (67-100%) Small (1-33%) -Granulation Quality [place] -Slough/Fibrin Yes -Necrosis Amt Small (1-33%) Small (1-33%) -Necrotic Tissue Type Adherent Slough Adherent Slough -Structure Exposed N/A -Texture (Chitra-wound Skin Appearance) Scarring -Moisture (Chitra-wound Skin Appearance) Dry/Scaly -Color (Chitra-wound Skin Appearance) Hemosiderin Staining -Temperature (Chitra-wound Skin No Abnormality Appearance) (Pt Warm) -Tenderness on Palpation (Chitra-wound No Skin Appearance) -Ulcer Cleansing Soap and Water Soap and Water -Foul Odor after Cleansing No No -Anesthetic Used 5% Lidocaine 5% Lidocaine Gel Gel #3 R Lat LE -Combined with other wound No No -Current Size (cm) - Length 0.3 0.5 0.5 -Current Size (cm) - Width 0.3 0.5 0.4 -Current Size (cm) - Depth 0.2 0.2 0.2 -Total Square Cm 0.09 0.25 0.20 -Photo Taken No Yes Yes -Epithelialization Large 67-100% Medium 34-66% -Tunneling No No -Undermining/Tunneling No No -Circular Undermining No No -Exudate Amt Small None Present Small -Exudate Type Serosanguineous Serosanguineous -Wound Margin Distinct, Flat & Intact Outline Attached -Granulation Amt Large (67-100%) Small (1-33%) Medium (34-66%) -Granulation Quality [place] -Slough/Fibrin Yes Yes -Necrosis Amt Small (1-33%) Small (1-33%) Small (1-33%) -Necrotic Tissue Type Adherent Slough Adherent Slough Adherent Slough -Structure Exposed N/A N/A -Texture (Chitra-wound Skin Appearance) No Abnormality Scarring Assessed, Localized Edema -Moisture (Chitra-wound Skin Appearance) No Abnormality Dry/Scaly Assessed,Dry/ Scaly -Color (Chitra-wound Skin Appearance) Assessed Hemosiderin Assessed, Staining Hemosiderin Staining -Temperature (Chitra-wound Skin No Abnormality No Abnormality Appearance) (Pt Warm) (Pt Warm) -Tenderness on Palpation (Chitra-wound No No Skin Appearance) -Ulcer Cleansing Soap and Water Soap and Water Rinsed/ Irrigated with Saline -Foul Odor after Cleansing No No -Anesthetic Used 5% Lidocaine 5% Lidocaine 5% Lidocaine Gel Gel Gel Lower Limb Edema Present Yes Right Calf (cm) 29.5 32 Right Ankle (cm) 21.7 22 WC - Nurse 2 - General Ulcer CM Notes Start: 08/15/22 09:09 Freq: Status: Active Protocol: Activity Type Activity Date Activity User E-sign Co-sign Detail Recorded Client Recorded Date Recorded By Document 08/15/22 09:31 [id number] 08/15/22 09:34 JF Document 08/29/22 09:58 PL [id number] 08/29/22 10:00 PL 08/15/22 08/29/22 09:31 09:58 Wound Center Nurse 2 #2 R Med LE -Time 09:32 -Correct Patient Yes -Correct Side, Site, Position Yes -Correct Procedure Yes -Procedure Performed Yes No -Type of Procedure Debridement -Clinical Debridement Subcutaneous -Tissue Removed Subcutaneous -Post Debridement (cm) - Length 0.2 -Post Debridement (cm) - Width 0.2 -Post Debridement (cm) - Depth 0.1 -Total Square (Post) (cm) 0.04 -Area of Debridement (cm) - Length 0.2 -Area of Debridement (cm) - Width 0.2 -Total Square (Area) (cm) 0.04 -Tunneling No -Undermining/Tunneling No -Circular Undermining No -Wound/Ulcer Outcome Not Healed Healed- Epithelialized -Ulcer Cleansing Rinsed/ Irrigated with Saline -Foul Odor after Cleansing No -Bioengineered Tissue Yes -Type of Bioengineered Tissue Ther[place]in -Expiration Date 02/27/27 -Product Lot Number [id number] -Percent Used 100 -Lot number of Saline Used [id number] -Bleeding Controlled with Pressure -Treatment Response Procedure Tolerated Well -Offloading No -Debridement - Subq, 1st 20sq cm No -Apply Skin Sub - 1st 25 sq cm - Legs 1 -[place]in (per sq cm) 3 #3 R Lat LE -Time 09:32 09:45 -Correct Patient Yes Yes -Correct Side, Site, Position Yes Yes -Correct Procedure Yes Yes -Procedure Performed Yes Yes -Type of Procedure Debridement Debridement -Clinical Debridement Subcutaneous Subcutaneous -Tissue Removed Subcutaneous Subcutaneous -Post Debridement (cm) - Length 0.5 0.5 -Post Debridement (cm) - Width 0.5 0.4 -Post Debridement (cm) - Depth 0.1 0.1 -Total Square (Post) (cm) 0.25 0.20 -Area of Debridement (cm) - Length 0.5 0.5 -Area of Debridement (cm) - Width 0.5 0.4 -Total Square (Area) (cm) 0.25 0.20 -Tunneling No No -Undermining/Tunneling No No -Circular Undermining No No -Wound/Ulcer Outcome Not Healed Not Healed -Ulcer Cleansing Rinsed/ Rinsed/ Irrigated with Irrigated with Saline Saline -Foul Odor after Cleansing No -Bioengineered Tissue No -Bleeding Controlled with Pressure Pressure -Treatment Response Procedure Procedure Tolerated Well Tolerated Well -Offloading No -Debridement - Subq, 1st 20sq cm Yes Yes Pain Scale: 0-10 Numeric Is Patient Pain Free? Yes Yes - Nurse 3 - General Ulcer D/C NN Start: 08/15/22 09:09 Freq: Status: Active Protocol: Activity Type Activity Date Activity User E-sign Co-sign Detail Recorded Client Recorded Date Recorded By Document 08/15/22 09:42 PL [id number] 08/15/22 09:43 PL Document 08/29/22 10:41 AK [id number] 08/29/22 10:42 AK 08/15/22 08/29/22 09:42 10:41 Wound Care Center Nurse 3 #2 R Med LE -Primary Dressing Covered/Secured with Dry Gauze & Roll Gauze, Secured with Tape #3 R Lat LE -Ulcer Cleansing Rinsed/ Irrigated with Saline -Foul Odor after Cleansing No -Negative Pressure Wound Therapy N/A -Primary Dressing Applied AMD Dressing 4x8,Collagen Powder ($) -Other Dressing hydrogel -Primary Dressing Covered/Secured with Dry Gauze & Dry Gauze, Roll Gauze, Secured with Secured with Tape Tape -AMD Dressing 4x8 1 Pain Scale: 0-10 Numeric Is Patient Pain Free? Yes Yes WC - Visit Discharge Discharge Condition Stable Stable Ambulatory Status Ambulatory Ambulatory Transportation Private Auto Medication Reconcilliation completed & Yes provided to patient/care provider Clinical Summary of Care Provided Yes Assessment/Plan Assessment/Plan (1) Non-pressure chronic ulcer of right calf with fat layer exposed: CODE(S): L97.212 - Non-pressure chronic ulcer of right calf with fat layer exposed (2) Raynaud disease: CODE(S): I73.00 - Raynaud's syndrome without gangrene (3) Bilateral lower extremity edema: CODE(S): R60.0 - Localized edema (4) Hypogammaglobulinemia, acquired: CODE(S): D80.1 - Nonfamilial hypogammaglobulinemia (5) HLD (hyperlipidemia): CODE(S): E78.5 - Hyperlipidemia, unspecified QUALIFIERS: Hyperlipidemia type: pure hypercholesterolemia Qualified Code(s): E78.00 - Pure hypercholesterolemia, unspecified; E78.0 - Pure hypercholesterolemia (6) Essential (primary) hypertension: CODE(S): I10 - Essential (primary) hypertension (7) Chronic diastolic (congestive) heart failure: CODE(S): I50.32 - Chronic diastolic (congestive) heart failure PLAN: Plan Patient seen and evaluated Ulceration to the right lateral ankle underwent debridement as noted in clinical panel above.? Ulceration measures 0.5 cm x 0.5 cm x 0.2 cm.? Ulceration demonstrates no signs of infection.? Ulceration was dressed with Olivia and dry sterile dressing.? She may change this dressing daily. Offloading padding applied about the ankle as patient is a side sleeper. Also recommended placing pillow under ankle for additional offloading. Ulceration noted to the posterior aspect of the right lower extremity overlying the distal aspect of the Achilles tendon has healed.? States ulceration is related to shoe gear irritation.? Site demonstrates no signs of infection.? Discussed continued use of Tubigrip compression and elevation of lower extremities at all times of rest to aid in edema control. I discussed the signs and symptoms of infection with her today.? She was instructed that if she gets any increasing redness about the wound margins extending up the back of her leg, any purulent drainage from the wound site, increasing foul odor, or if she experiences any fever greater than 101 degree, nausea, vomiting, or chills that these are signs of a progressing infection and she needs to report to the ED.? She voices understanding of this today. The following work up and care recommendations were made: Dressing: Olivia and dry sterile dressing Wash: Soap and water Tissue growth optimization: Olivia Offload: Ensure the back of the leg is not in direct contact with chair/recliner and remains padded by pillows offloading at all times of rest Vascular: Patient does have adequate DP and PT pulse pulses.? Capillary fill time is adequate to the digits Edema: Continued elevation of the lower extremities at times of rest and Tubigrip compression stocking Infection: No signs of infection Pain: May take [id number] Tylenol extra strength for pain Host factors: Advanced age, edema, Raynaud's/vascular disease ? I answered all the patient's questions.? To return to the wound healing center in 1 weeks or call sooner if the patient has any questions or concerns.
== END 2022-09-11 23:59 | disposition home or self-care (01) ==
LOC: WC 09:00
PROVIDERS: PCP Internal Medicine; Visit Provider Student in an Organized Health Care Education/Training Program
DX: E11.622 Type 2 diabetes mellitus with other skin ulcer (principal); D80.1 Nonfamilial hypogammaglobulinemia; L97.212 Non-pressure chronic ulcer of right calf with fat layer exposed; I11.0 Hypertensive heart disease with heart failure; I50.32 Chronic diastolic (congestive) heart failure; I73.00 Raynaud's syndrome without gangrene; E78.00 Pure hypercholesterolemia, unspecified; M79.606 Pain in leg, unspecified; R60.0 Localized edema
CPT/HCPCS: 11042; 15271; Q4121

== ENCOUNTER → 2022-10-01 | Outpatient (CLI) | payer MEDICARE, OTHER, SELFPAY ==
[2022-10-01 09:46] LABS: International Normalized Ratio 1.7; Prothrombin Time (Protime)PT. 19.9 SECONDS (11.7-14.9)
== END | disposition home or self-care (01) ==
LOC: LAB 08:43
PROVIDERS: PCP Internal Medicine; Visit Provider Physician Assistant Medical
DX: I48.92 Unspecified atrial flutter (principal); I48.0 Paroxysmal atrial fibrillation; Z79.01 Long term (current) use of anticoagulants
CPT/HCPCS: 36415; 85610

== ENCOUNTER → 2022-10-08 | Outpatient (CLI) | payer MEDICARE, OTHER, SELFPAY ==
[2022-10-08 12:09] LABS: Prothrombin Time (Protime)PT. 13.4 SECONDS (11.7-14.9)
== END | disposition home or self-care (01) ==
PROVIDERS: PCP Internal Medicine; Referring Provider Nurse Practitioner Acute Care; Visit Provider Nurse Practitioner Acute Care
DX: Z79.01 Long term (current) use of anticoagulants (principal)
CPT/HCPCS: 36415; 85610

== ENCOUNTER 2022-10-10 09:30 | Outpatient (RCR) | payer MEDICARE, OTHER, SELFPAY ==
[2022-09-12 00:32] VITALS: BP 154/64; PULSE 79; RESP 16; TEMP 35.1; BMI 26.3
--- NOTE | 2022-09-12 09:42 | PN.PCM_ITS ---
History of Present Illness Date of Service: 09/12/22 Chief Complaint: Right lower extremity wound History of Wound: Patient is an 86-year-old female with history of atherosclerotic disease, peripheral vascular disease, Raynaud's, hyperlipidemia who presented to Dr. Dang office with new wound to the posterior aspect of her right lower extremity secondary to shoe gear rubbing against the back of her leg. States that she was placed on an antibiotic and had been applying antibiotic ointment to the wound. She was seen by me in office last week for her debridement of nails. She stated that she would be seen in the wound care center next week and thus I have not started treatment of the right lower extremity wound performing debridement of the wound in office. She states wound has been present for only a few weeks without improvement prior to seeking care. Subjective Subjective This is an 86-year-old female who presents to the wound care center for follow- up of a right lower extremity wound.? She has been changing the outer dressings to the site daily.? Continues to wear open back shoes for offloading of site. She states she is attempting to offload lateral leg with pillow during sleep. She denies constitutional symptoms today.? She has no further complaints today. Objective Data Objective Data Vital Signs: Vital Signs Temp Pulse Resp BP 95.2 F L 79 16 154/64 H 09/12/22 00:32 09/12/22 00:32 09/12/22 00:32 09/12/22 00:32 Weight: 76.204 kg Body Mass Index (BMI) 26.3 Physical Exam Const alert, oriented x3 and no apparent distress General Appearance: cooperative HEENT normocephalic Eyes General Eye: normal appearance of both eyes Neck General: normal visual inspection Lymph Lymphatic: no lymphadenopathy noted and no lymphedema noted Resp normal respiratory effort Cardio regular rate and regular rhythm Extremity normal capillary refill, no joint enlargement, no calf tenderness and no pedal edema Extremity Narrative: DP and PT pulses weakly palpable.? CFT < 5 seconds and adequate to the digits.? There is bilateral lower extremity edema +2 pitting with purplish discoloration of the entire lower extremity secondary to her peripheral vascular disease and Raynaud's.? There is a wound noted to the posterior right lower extremity overlying the Achilles tendon distally secondary to the heel cup of the shoe rubbing the back of the leg. Skin no rashes or lesions noted, skin turgor normal and no jaundice Wound Narrative: There is a wound noted to the posterior aspect of the right lower extremity at the distal aspect of the Achilles tendon secondary to shoe heel cup rubbing the back of her lower extremity.? Wound remains healed. No signs of infection. Ulceration noted to the right lateral lower extremity demonstrates mixed fibrogranular layer.? No purulent drainage, no malodor, no palpable fluctuance/bogginess, no visible abscess noted. Neuro moves all extremities Debridement Note Debridement Note Wound debrided: Right lateral ankle Laterality: Right Wound Grade/Stage: Mustafa stage I Type of Debridement: Excisional debridement Anesthesia Used: 5% Lidocaine Gel Depth: Down to and including healthy tissue and in the subcutaneous layer Percentage of wound debrided: 100 Instrument Used: 3mm curette Tissue Removed: Fibrous, devitalized subcutaneous, biofilm, slough Severity: Fat Layer Exposed Amount of bleeding with debridement: Mild Bleeding Controlled with: Compression and gauze Patient tolerated procedure: Patient tolerated procedure well Assessment/Plan Assessment/Plan (1) Non-pressure chronic ulcer of right calf with fat layer exposed: CODE(S): L97.212 - Non-pressure chronic ulcer of right calf with fat layer exposed (2) Raynaud disease: CODE(S): I73.00 - Raynaud's syndrome without gangrene (3) Bilateral lower extremity edema: CODE(S): R60.0 - Localized edema (4) Essential (primary) hypertension: CODE(S): I10 - Essential (primary) hypertension (5) HLD (hyperlipidemia): CODE(S): E78.5 - Hyperlipidemia, unspecified QUALIFIERS: Hyperlipidemia type: pure hypercholesterolemia Qualified Code(s): E78.00 - Pure hypercholesterolemia, unspecified; E78.0 - Pure hypercholesterolemia (6) Chronic diastolic (congestive) heart failure: CODE(S): I50.32 - Chronic diastolic (congestive) heart failure PLAN: Plan Patient seen and evaluated Ulceration to the right lateral ankle underwent debridement as noted in clinical panel above.? Ulceration measures 0.6 cm x 0.6 cm x 0.2 cm.? Ulceration demonstrates no signs of infection.? Ulceration was dressed with Olivia and dry sterile dressing.? She may change this dressing daily.? Offloading padding applied about the ankle as patient is a side sleeper.? Also recommended continued use placing pillow under ankle for additional offloading. Ulceration noted to the posterior aspect of the right lower extremity overlying the distal aspect of the Achilles tendon remains healed.? States ulceration is related to shoe gear irritation.? Site demonstrates no signs of infection.? Discussed continued use of Tubigrip compression and elevation of lower extremities at all times of rest to aid in edema control. I discussed the signs and symptoms of infection with her today.? She was instructed that if she gets any increasing redness about the wound margins extending up the back of her leg, any purulent drainage from the wound site, increasing foul odor, or if she experiences any fever greater than 101 degree, nausea, vomiting, or chills that these are signs of a progressing infection and she needs to report to the ED.? She voices understanding of this today. The following work up and care recommendations were made: Dressing: Olivia and dry sterile dressing Wash: Soap and water Tissue growth optimization: Olivia Offload: Ensure the back of the leg is not in direct contact with chair/recliner and remains padded by pillows offloading at all times of rest Vascular: Patient does have adequate DP and PT pulse pulses.? Capillary fill time is adequate to the digits Edema: Continued elevation of the lower extremities at times of rest and Tubigrip compression stocking Infection: No signs of infection Pain: May take [id number] Tylenol extra strength for pain Host factors: Advanced age, edema, Raynaud's/vascular disease ? I answered all the patient's questions.? To return to the wound healing center in 1 weeks or call sooner if the patient has any questions or concerns.
[2022-09-12 09:56] VITALS: BP 141/76; PULSE 81; TEMP 36.2; BMI 26.3
--- NOTE | 2022-09-19 09:12 | PCM.WC.PN ---
History of Present Illness Date of Service: 09/19/22 Chief Complaint: Right lower extremity wound History of Wound: Patient is an 86-year-old female with history of atherosclerotic disease, peripheral vascular disease, Raynaud's, hyperlipidemia who presented to Dr. Dang office with new wound to the posterior aspect of her right lower extremity secondary to shoe gear rubbing against the back of her leg. States that she was placed on an antibiotic and had been applying antibiotic ointment to the wound. She was seen by me in office last week for her debridement of nails. She stated that she would be seen in the wound care center next week and thus I have not started treatment of the right lower extremity wound performing debridement of the wound in office. She states wound has been present for only a few weeks without improvement prior to seeking care. Subjective Subjective This is an 86-year-old female who presents to the wound care center for follow-up of a right lower extremity wound.? She has been changing the outer dressings to the site daily.? Continues to wear open back shoes for offloading of site.? She states she is continuing to offload lateral leg with pillow during sleep. She denies constitutional symptoms today.? She has no further complaints today. Objective Data Objective Data Vital Signs: Vital Signs Temp Pulse Resp BP 97.1 F L 81 16 141/76 H 09/12/22 09:56 09/12/22 09:56 09/12/22 00:32 09/12/22 09:56 Weight: 76.204 kg Body Mass Index (BMI) 26.3 Physical Exam Const alert, oriented x3 and no apparent distress General Appearance: cooperative HEENT normocephalic Eyes General Eye: normal appearance of both eyes Neck General: normal visual inspection Lymph Lymphatic: no lymphadenopathy noted and no lymphedema noted Resp normal respiratory effort Cardio regular rate and regular rhythm Extremity normal capillary refill, no joint enlargement, no calf tenderness and no pedal edema Extremity Narrative: DP and PT pulses weakly palpable.? CFT < 5 seconds and adequate to the digits.? There is bilateral lower extremity edema +2 pitting with purplish discoloration of the entire lower extremity secondary to her peripheral vascular disease and Raynaud's.? There is a wound noted to the posterior right lower extremity overlying the Achilles tendon distally secondary to the heel cup of the shoe rubbing the back of the leg. Skin no rashes or lesions noted, skin turgor normal and no jaundice Wound Narrative: There is a wound noted to the posterior aspect of the right lower extremity at the distal aspect of the Achilles tendon secondary to shoe heel cup rubbing the back of her lower extremity.? Wound remains healed. No signs of infection. Ulceration noted to the right lateral lower extremity demonstrates mixed fibrogranular layer.? No purulent drainage, no malodor, no palpable fluctuance/bogginess, no visible abscess noted. Neuro moves all extremities Debridement Note Debridement Note Wound debrided: Right lateral leg Laterality: Right Wound Grade/Stage: Mustafa stage I Type of Debridement: Excisional debridement Anesthesia Used: 5% Lidocaine Gel Depth: Down to and including healthy tissue and in the subcutaneous layer Percentage of wound debrided: 100 Instrument Used: 3mm curette Tissue Removed: Fibrous, devitalized subcutaneous, biofilm, slough Severity: Fat Layer Exposed Amount of bleeding with debridement: Mild Bleeding Controlled with: Compression and gauze Patient tolerated procedure: Patient tolerated procedure well Post-Debridement Measurements and Additional Note: Post-Debridement Measurements/Treatment - Nurse 1 - General Ulcer Assessment Start: 09/12/22 09:55 Freq: Status: Active Protocol: ARNOLDO Activity Type Activity Date Activity User E-sign Co-sign Detail Recorded Client Recorded Date Recorded By Document 09/12/22 09:56 IA [id number] 09/12/22 09:59 ELBA 09/12/22 09:56 - Today's Visit Information Type of service Follow-up Visit (Physician/PHARMACY PICKING TECH ) Arrival Mode Ambulatory Patient Identification Verified (Name & Yes ) Patient Requires Transmission-Based No Precautions Safety Precautions NA Height and Weight Body Mass Index (BMI) 26.3 BMI Classification Overweight Vital Signs Temperature (97.8 F-99.1 F) 97.1 F L Temperature Source Temporal Pulse Rate (60-100) 81 Pulse Location Monitor Blood Pressure (90/60-120/80) 141/76 H Blood Pressure Mean (mm Hg) 97 Source Monitor History Since Last Visit- (Skip if this is Patient's initial visit) Have you changed medications since your No last visit? Any new allergies or adverse reactions No Had a fall/change in ADL's that may No increase risk of falls Signs or symptoms of abuse and/or No neglect since last visit Have you been in the hospital since your No last visit? Has dressing in place as prescribed Yes Has compression in place as prescribed N/A Has offloadiing in place as prescribed N/A Experienced any changes in pain level or No management Left Footwear Regular Shoe Right Footwear Regular Shoe Pain Scale: 0-10 Numeric Is Patient Pain Free? Yes - Nurse 1 - General Ulcer Measurement Start: 09/12/22 09:55 Freq: Status: Active Protocol: Activity Type Activity Date Activity User E-sign Co-sign Detail Recorded Client Recorded Date Recorded By Document 09/12/22 09:56 IA [id number] 09/12/22 09:59 AK 09/12/22 09:56 Wound Center Nurse 1 #3 R Lat LE -Combined with other wound No -Current Size (cm) - Length 0.4 -Current Size (cm) - Width 0.4 -Current Size (cm) - Depth 0.3 -Total Square Cm 0.16 -Photo Taken Yes -Tunneling No -Undermining/Tunneling No -Circular Undermining No -Change in Wound Grade/Stage No -Exudate Amt Medium -Exudate Type Serosanguineous -Wound Margin Distinct, Outline Attached -Granulation Amt Medium (34-66%) -Granulation Quality [place] -Slough/Fibrin Yes -Necrosis Amt Medium (34-66%) -Necrotic Tissue Type Adherent Slough -Structure Exposed N/A -Texture (Chitra-wound Skin Appearance) No Abnormality, Assessed -Moisture (Chitra-wound Skin Appearance) No Abnormality, Assessed -Color (Chitra-wound Skin Appearance) No Abnormality, Assessed -Temperature (Chitra-wound Skin No Abnormality Appearance) (Pt Warm) -Tenderness on Palpation (Chitra-wound No Skin Appearance) -Ulcer Cleansing Rinsed/ Irrigated with Saline -Foul Odor after Cleansing No -Anesthetic Used 5% Lidocaine Gel - Nurse 2 - General Ulcer CM Notes Start: 09/12/22 09:55 Freq: Status: Active Protocol: Activity Type Activity Date Activity User E-sign Co-sign Detail Recorded Client Recorded Date Recorded By Document 09/12/22 12:19 PL [id number] 09/12/22 12:20 PL 09/12/22 12:19 Wound Center Nurse 2 -Time 09:28 -Correct Patient Yes -Correct Side, Site, Position Yes -Correct Procedure Yes -Procedure Performed Yes -Type of Procedure Debridement -Clinical Debridement Subcutaneous -Tissue Removed Subcutaneous -Post Debridement (cm) - Length 0.6 -Post Debridement (cm) - Width 0.6 -Post Debridement (cm) - Depth 0.2 -Total Square (Post) (cm) 0.36 -Area of Debridement (cm) - Length 0.6 -Area of Debridement (cm) - Width 0.6 -Total Square (Area) (cm) 0.36 -Tunneling No -Undermining/Tunneling No -Circular Undermining No -Wound/Ulcer Outcome Not Healed -Ulcer Cleansing Rinsed/ Irrigated with Saline -Foul Odor after Cleansing No -Bioengineered Tissue No -Bleeding Controlled with Pressure -Treatment Response Procedure Tolerated Well -Debridement - Subq, 1st 20sq cm Yes Pain Scale: 0-10 Numeric Is Patient Pain Free? Yes WC - Nurse 3 - General Ulcer D/C NN Start: 09/12/22 09:55 Freq: Status: Active Protocol: Activity Type Activity Date Activity User E-sign Co-sign Detail Recorded Client Recorded Date Recorded By Document 09/12/22 09:56 IA [id number] 09/12/22 09:59 IA 09/12/22 09:56 Vital Signs Temperature (97.8 F-99.1 F) 97.1 F L Temperature Source Temporal Pulse Rate (60-100) 81 Pulse Location Monitor Blood Pressure (90/60-120/80) 141/76 H Blood Pressure Mean (mm Hg) 97 Source Monitor Pain Scale: 0-10 Numeric Is Patient Pain Free? Yes Wound Care Center Nurse 3 #3 R Lat LE -Ulcer Cleansing Rinsed/ Irrigated with Saline -Foul Odor after Cleansing No -Negative Pressure Wound Therapy N/A -Primary Dressing Applied Promogran Olivia Matter -Other Dressing offloaded with felt/foam -Primary Dressing Covered/Secured with Dry Gauze & Roll Gauze, Secured with Tape -Promogran Olivia Matter 1 Assessment/Plan Assessment/Plan (1) Non-pressure chronic ulcer of right calf with fat layer exposed: CODE(S): L97.212 - Non-pressure chronic ulcer of right calf with fat layer exposed (2) Raynaud disease: CODE(S): I73.00 - Raynaud's syndrome without gangrene (3) Bilateral lower extremity edema: CODE(S): R60.0 - Localized edema (4) Essential (primary) hypertension: CODE(S): I10 - Essential (primary) hypertension (5) HLD (hyperlipidemia): CODE(S): E78.5 - Hyperlipidemia, unspecified QUALIFIERS: Hyperlipidemia type: pure hypercholesterolemia Qualified Code(s): E78.00 - Pure hypercholesterolemia, unspecified; E78.0 - Pure hypercholesterolemia (6) Chronic diastolic (congestive) heart failure: CODE(S): I50.32 - Chronic diastolic (congestive) heart failure PLAN: Plan Patient seen and evaluated Ulceration to the right lateral ankle underwent debridement as noted in clinical panel above.? Ulceration measures 0.6 cm x 0.4 cm x 0.2 cm.? Ulceration demonstrates no signs of infection.? Ulceration was dressed with Olivia and dry sterile dressing.? She may change this dressing daily.? Offloading padding applied about the ankle as patient is a side sleeper.? Also recommended continued use placing pillow under ankle for additional offloading. This ulcerative site did demonstrate decrease in size versus previous visit. Ulceration noted to the posterior aspect of the right lower extremity overlying the distal aspect of the Achilles tendon remains healed.? States ulceration is related to shoe gear irritation.? Site demonstrates no signs of infection.? Discussed continued use of Tubigrip compression and elevation of lower extremities at all times of rest to aid in edema control. I discussed the signs and symptoms of infection with her today.? She was instructed that if she gets any increasing redness about the wound margins extending up the back of her leg, any purulent drainage from the wound site, increasing foul odor, or if she experiences any fever greater than 101 degree, nausea, vomiting, or chills that these are signs of a progressing infection and she needs to report to the ED.? She voices understanding of this today. The following work up and care recommendations were made: Dressing: Olivia and dry sterile dressing Wash: Soap and water Tissue growth optimization: Olivia Offload: Ensure the back of the leg is not in direct contact with chair/recliner and remains padded by pillows offloading at all times of rest Vascular: Patient does have adequate DP and PT pulse pulses.? Capillary fill time is adequate to the digits Edema: Continued elevation of the lower extremities at times of rest and Tubigrip compression stocking Infection: No signs of infection Pain: May take [id number] Tylenol extra strength for pain Host factors: Advanced age, edema, Raynaud's/vascular disease ? I answered all the patient's questions.? To return to the wound healing center in 1 weeks or call sooner if the patient has any questions or concerns.
[2022-09-19 09:19] VITALS: BP 155/69; PULSE 78; RESP 16; TEMP 35.8; BMI 26.3
--- NOTE | 2022-09-26 10:14 | PCM.WC.PN ---
History of Present Illness Date of Service: 09/26/22 Chief Complaint: Right lower extremity wound History of Wound: Patient is an 86-year-old female with history of atherosclerotic disease, peripheral vascular disease, Raynaud's, hyperlipidemia who presented to Dr. Dang office with new wound to the posterior aspect of her right lower extremity secondary to shoe gear rubbing against the back of her leg. States that she was placed on an antibiotic and had been applying antibiotic ointment to the wound. She was seen by me in office last week for her debridement of nails. She stated that she would be seen in the wound care center next week and thus I have not started treatment of the right lower extremity wound performing debridement of the wound in office. She states wound has been present for only a few weeks without improvement prior to seeking care. Subjective Subjective This is an 86-year-old female who presents to the wound care center for follow-up of a right lower extremity wound.? She has been changing the outer dressings to the site daily.? Continues to wear open back shoes for offloading of site.? She states she is continuing to offload lateral leg with pillow during sleep. She denies constitutional symptoms today.? She has no further complaints today. Objective Data Objective Data Vital Signs: Vital Signs Temp Pulse Resp BP 96.5 F L 78 16 155/69 H 09/19/22 09:19 09/19/22 09:19 09/19/22 09:19 09/19/22 09:19 Weight: 76.204 kg Body Mass Index (BMI) 26.3 Physical Exam Const alert, oriented x3 and no apparent distress General Appearance: cooperative HEENT normocephalic Eyes General Eye: normal appearance of both eyes Neck General: normal visual inspection Lymph Lymphatic: no lymphadenopathy noted and no lymphedema noted Resp normal respiratory effort Cardio regular rate and regular rhythm Extremity normal capillary refill, no joint enlargement, no calf tenderness and no pedal edema Extremity Narrative: DP and PT pulses weakly palpable.? CFT < 5 seconds and adequate to the digits.? There is bilateral lower extremity edema +2 pitting with purplish discoloration of the entire lower extremity secondary to her peripheral vascular disease and Raynaud's.? Wound to posterior leg has healed. Wound to lateral malleolus with fibrogranular base and no signs of infection. Skin no rashes or lesions noted, skin turgor normal and no jaundice Wound Narrative: There is a wound noted to the posterior aspect of the right lower extremity at the distal aspect of the Achilles tendon secondary to shoe heel cup rubbing the back of her lower extremity.? Wound remains healed. No signs of infection. Ulceration noted to the right lateral lower extremity demonstrates mixed fibrogranular layer.? No purulent drainage, no malodor, no palpable fluctuance/bogginess, no visible abscess noted. Neuro moves all extremities Debridement Note Debridement Note Wound debrided: Right lateral leg Laterality: Right Wound Grade/Stage: Mustafa stage I Type of Debridement: Excisional debridement Anesthesia Used: 5% Lidocaine Gel Depth: Down to and including healthy tissue and in the subcutaneous layer Percentage of wound debrided: 100 Instrument Used: 3mm curette Tissue Removed: Fibrous, devitalized subcutaneous, biofilm, slough Severity: Fat Layer Exposed Amount of bleeding with debridement: Mild Bleeding Controlled with: Compression and gauze Patient tolerated procedure: Patient tolerated procedure well Post-Debridement Measurements and Additional Note: Post-Debridement Measurements/Treatment - Nurse 1 - General Ulcer Assessment Start: 09/12/22 09:55 Freq: Status: Active Protocol: JO.SILVIA Activity Type Activity Date Activity User E-sign Co-sign Detail Recorded Client Recorded Date Recorded By Document 09/12/22 09:56 IN [id number] 09/12/22 09:59 AK Document 09/19/22 09:19 [id number] 09/19/22 09:25 09/12/22 09/19/22 09:56 09:19 - Today's Visit Information Type of service Follow-up Visit Follow-up Visit (Physician/SAMPLE DYE MIXER (Physician/SAMPLE DYE MIXER ) ) Arrival Mode Ambulatory Ambulatory,Cane Patient Identification Verified (Name & Yes Yes ) Patient Requires Transmission-Based No No Precautions Safety Precautions NA NA Height and Weight Body Mass Index (BMI) 26.3 26.3 BMI Classification Overweight Overweight Vital Signs Temperature (97.8 F-99.1 F) 97.1 F L 96.5 F L Temperature Source Temporal Temporal Pulse Rate (60-100) 81 78 Pulse Location Monitor Monitor Respiratory Rate (12-18) 16 Respiratory rate source Observation Blood Pressure (90/60-120/80) 141/76 H 155/69 H Blood Pressure Mean (mm Hg) 97 97 Source Monitor Monitor Position Sitting Blood Pressure Location Right Arm History Since Last Visit- (Skip if this is Patient's initial visit) Have you changed medications since your No No last visit? Any new allergies or adverse reactions No No Had a fall/change in ADL's that may No No increase risk of falls Signs or symptoms of abuse and/or No No neglect since last visit Have you been in the hospital since your No No last visit? Has dressing in place as prescribed Yes Yes Has compression in place as prescribed N/A N/A Has offloadiing in place as prescribed N/A Yes Experienced any changes in pain level or No No management Left Footwear Regular Shoe Regular Shoe Right Footwear Regular Shoe Regular Shoe Pain Scale: 0-10 Numeric Is Patient Pain Free? Yes Yes WC - Nurse 1 - General Ulcer Measurement Start: 09/12/22 09:55 Freq: Status: Active Protocol: Activity Type Activity Date Activity User E-sign Co-sign Detail Recorded Client Recorded Date Recorded By Document 09/12/22 09:56 IN [id number] 09/12/22 09:59 IN Document 09/19/22 09:19 [id number] 09/19/22 09:25 09/12/22 09/19/22 09:56 09:19 Wound Center Nurse 1 #3 R Lat LE -Combined with other wound No No -Current Size (cm) - Length 0.4 0.6 -Current Size (cm) - Width 0.4 0.5 -Current Size (cm) - Depth 0.3 0.2 -Total Square Cm 0.16 0.30 -Photo Taken Yes Yes -Epithelialization None Present -Tunneling No No -Undermining/Tunneling No No -Circular Undermining No No -Change in Wound Grade/Stage No -Exudate Amt Medium Small -Exudate Type Serosanguineous Serosanguineous -Wound Margin Distinct, Flat & Intact Outline Attached -Granulation Amt Medium (34-66%) Medium (34-66%) -Granulation Quality [place] Red -Slough/Fibrin Yes Yes -Necrosis Amt Medium (34-66%) Small (1-33%) -Necrotic Tissue Type Adherent Slough Adherent Slough -Structure Exposed N/A N/A -Texture (Chitra-wound Skin Appearance) No Abnormality, Assessed, Assessed Localized Edema -Moisture (Chitra-wound Skin Appearance) No Abnormality, Assessed,Dry/ Assessed Scaly -Color (Chitra-wound Skin Appearance) No Abnormality, Assessed Assessed -Temperature (Chitra-wound Skin No Abnormality No Abnormality Appearance) (Pt Warm) (Pt Warm) -Tenderness on Palpation (Chitra-wound No No Skin Appearance) -Ulcer Cleansing Rinsed/ Rinsed/ Irrigated with Irrigated with Saline Saline -Foul Odor after Cleansing No No -Anesthetic Used 5% Lidocaine 5% Lidocaine Gel Gel Lower Limb Edema Present Yes Right Calf (cm) 30.5 Right Ankle (cm) 21.2 WC - Nurse 2 - General Ulcer CM Notes Start: 09/12/22 09:55 Freq: Status: Active Protocol: Activity Type Activity Date Activity User E-sign Co-sign Detail Recorded Client Recorded Date Recorded By Document 09/12/22 12:19 PL [id number] 09/12/22 12:20 PL Document 09/19/22 12:38 PL [id number] 09/19/22 12:39 PL 09/12/22 09/19/22 12:19 12:38 Wound Center Nurse 2 #3 R Lat LE -Time 09:28 09:35 -Correct Patient Yes Yes -Correct Side, Site, Position Yes Yes -Correct Procedure Yes Yes -Procedure Performed Yes Yes -Type of Procedure Debridement Debridement -Clinical Debridement Subcutaneous Subcutaneous -Tissue Removed Subcutaneous Subcutaneous -Post Debridement (cm) - Length 0.6 0.6 -Post Debridement (cm) - Width 0.6 0.4 -Post Debridement (cm) - Depth 0.2 0.1 -Total Square (Post) (cm) 0.36 0.24 -Area of Debridement (cm) - Length 0.6 0.6 -Area of Debridement (cm) - Width 0.6 0.4 -Total Square (Area) (cm) 0.36 0.24 -Tunneling No No -Undermining/Tunneling No No -Circular Undermining No No -Wound/Ulcer Outcome Not Healed Not Healed -Ulcer Cleansing Rinsed/ Rinsed/ Irrigated with Irrigated with Saline Saline -Foul Odor after Cleansing No No -Bioengineered Tissue No No -Bleeding Controlled with Pressure Pressure -Treatment Response Procedure Procedure Tolerated Well Tolerated Well -Debridement - Subq, 1st 20sq cm Yes Yes Pain Scale: 0-10 Numeric Is Patient Pain Free? Yes Yes WC - Nurse 3 - General Ulcer D/C NN Start: 09/12/22 09:55 Freq: Status: Active Protocol: Activity Type Activity Date Activity User E-sign Co-sign Detail Recorded Client Recorded Date Recorded By Document 09/12/22 09:56 ELBA [id number] 09/12/22 09:59 AK Document 09/19/22 10:10 ELBA [id number] 09/19/22 10:11 AK 09/12/22 09/19/22 09:56 10:10 Vital Signs Temperature (97.8 F-99.1 F) 97.1 F L Temperature Source Temporal Pulse Rate (60-100) 81 Pulse Location Monitor Blood Pressure (90/60-120/80) 141/76 H Blood Pressure Mean (mm Hg) 97 Source Monitor Pain Scale: 0-10 Numeric Is Patient Pain Free? Yes Yes Wound Care Center Nurse 3 #3 R Lat LE -Ulcer Cleansing Rinsed/ Rinsed/ Irrigated with Irrigated with Saline Saline -Foul Odor after Cleansing No No -Negative Pressure Wound Therapy N/A N/A -Primary Dressing Applied Promogran Promogran Olivia Matter Olivia Matter -Other Dressing offloaded with x padding felt/foam -Primary Dressing Covered/Secured with Dry Gauze & Dry Gauze & Roll Gauze, Roll Gauze, Secured with Secured with Tape Tape -Promogran Olivia Matter 1 1 WC - Visit Discharge Discharge Condition Stable Ambulatory Status Ambulatory,Cane Transportation Private Auto Medication Reconcilliation completed & Yes provided to patient/care provider Clinical Summary of Care Provided Yes Assessment/Plan Assessment/Plan (1) Non-pressure chronic ulcer of right calf with fat layer exposed: CODE(S): L97.212 - Non-pressure chronic ulcer of right calf with fat layer exposed (2) Raynaud disease: CODE(S): I73.00 - Raynaud's syndrome without gangrene (3) Bilateral lower extremity edema: CODE(S): R60.0 - Localized edema (4) Essential (primary) hypertension: CODE(S): I10 - Essential (primary) hypertension (5) HLD (hyperlipidemia): CODE(S): E78.5 - Hyperlipidemia, unspecified QUALIFIERS: Hyperlipidemia type: pure hypercholesterolemia Qualified Code(s): E78.00 - Pure hypercholesterolemia, unspecified; E78.0 - Pure hypercholesterolemia (6) Chronic diastolic (congestive) heart failure: CODE(S): I50.32 - Chronic diastolic (congestive) heart failure PLAN: Plan Patient seen and evaluated Ulceration to the right lateral ankle underwent debridement as noted in clinical panel above.? Ulceration measures 0.5 cm x 0.3 cm x 0.2 cm.? Ulceration demonstrates no signs of infection.? Ulceration was dressed with Olivia and dry sterile dressing.? She is to change this dressing daily.? Offloading padding applied about the ankle as patient is a side sleeper.? Also recommended continued use placing pillow under ankle for additional offloading. This ulcerative site did demonstrate decrease in size versus previous visit. Ulceration noted to the posterior aspect of the right lower extremity overlying the distal aspect of the Achilles tendon remains healed.? States ulceration is related to shoe gear irritation.? Site demonstrates no signs of infection.? Discussed continued use of Tubigrip compression and elevation of lower extremities at all times of rest to aid in edema control. I discussed the signs and symptoms of infection with her today.? She was instructed that if she gets any increasing redness about the wound margins extending up the back of her leg, any purulent drainage from the wound site, increasing foul odor, or if she experiences any fever greater than 101 degree, nausea, vomiting, or chills that these are signs of a progressing infection and she needs to report to the ED.? She voices understanding of this today. The following work up and care recommendations were made: Dressing: Olivia and dry sterile dressing Wash: Soap and water Tissue growth optimization: Olivia Offload: Ensure the back of the leg is not in direct contact with chair/recliner and remains padded by pillows offloading at all times of rest Vascular: Patient does have adequate DP and PT pulse pulses.? Capillary fill time is adequate to the digits Edema: Continued elevation of the lower extremities at times of rest and Tubigrip compression stocking Infection: No signs of infection Pain: May take [id number] Tylenol extra strength for pain Host factors: Advanced age, edema, Raynaud's/vascular disease ? I answered all the patient's questions.? To return to the wound healing center in 2 weeks or call sooner if the patient has any questions or concerns.
[2022-09-26 10:15] VITALS: BP 152/72; PULSE 83; RESP 18; TEMP 36; BMI 26.3
[2022-10-10 09:07] VITALS: BP 140/66; PULSE 77; RESP 18; TEMP 35.3; BMI 26.3
--- NOTE | 2022-10-10 09:33 | PN.PCM_ITS ---
History of Present Illness Date of Service: 10/10/22 Chief Complaint: Right lower extremity wound History of Wound: Patient is an 86-year-old female with history of atherosclerotic disease, peripheral vascular disease, Raynaud's, hyperlipidemia who presented to Dr. Dang office with new wound to the posterior aspect of her right lower extremity secondary to shoe gear rubbing against the back of her leg. States that she was placed on an antibiotic and had been applying antibiotic ointment to the wound. She was seen by me in office last week for her debridement of nails. She stated that she would be seen in the wound care center next week and thus I have not started treatment of the right lower extremity wound performing debridement of the wound in office. She states wound has been present for only a few weeks without improvement prior to seeking care. Subjective Subjective This is an 86-year-old female who presents to the wound care center for follow- up of a right lower extremity wound.? She has been changing the outer dressings to the site daily.? Continues to wear open back shoes for offloading of site.? She states she is continuing to offload lateral leg with padding and pillow during sleep. She denies constitutional symptoms today.? She has no further complaints today. Objective Data Objective Data Vital Signs: Vital Signs Temp Pulse Resp BP O2 Del Method 95.6 F L 77 18 140/66 H Room Air 10/10/22 09:07 10/10/22 09:07 10/10/22 09:07 10/10/22 09:07 10/10/22 09:07 Oxygen Delivery Method Room Air Weight: 76.204 kg Body Mass Index (BMI) 26.3 Physical Exam Const alert, oriented x3 and no apparent distress General Appearance: cooperative HEENT normocephalic Eyes General Eye: normal appearance of both eyes Neck General: normal visual inspection Lymph Lymphatic: no lymphadenopathy noted and no lymphedema noted Resp normal respiratory effort Cardio regular rate and regular rhythm Extremity normal capillary refill, no joint enlargement, no calf tenderness and no pedal edema Extremity Narrative: DP and PT pulses weakly palpable.? CFT < 5 seconds and adequate to the digits.? There is bilateral lower extremity edema +2 pitting with purplish discoloration of the entire lower extremity secondary to her peripheral vascular disease and Raynaud's.? Wound to posterior leg has healed. Wound to lateral malleolus with fibrogranular base and no signs of infection. Skin no rashes or lesions noted, skin turgor normal and no jaundice Wound Narrative: There is a wound noted to the posterior aspect of the right lower extremity at the distal aspect of the Achilles tendon secondary to shoe heel cup rubbing the back of her lower extremity.? Wound remains healed. No signs of infection. Ulceration noted to the right lateral lower extremity demonstrates mixed fibrogranular layer.? No purulent drainage, no malodor, no palpable fluctuance/bogginess, no visible abscess noted. Neuro moves all extremities Debridement Note Debridement Note Wound debrided: Right lateral ankle Laterality: Right Wound Grade/Stage: Mustafa stage I Type of Debridement: Excisional debridement Anesthesia Used: 5% Lidocaine Gel Depth: Down to and including healthy tissue and in the subcutaneous layer Percentage of wound debrided: 100 Instrument Used: - (1 mm curette) Tissue Removed: Fibrous, devitalized subcutaneous, biofilm, slough Severity: Fat Layer Exposed Amount of bleeding with debridement: Mild Bleeding Controlled with: Compression and gauze Patient tolerated procedure: Patient tolerated procedure well Post-Debridement Measurements and Additional Note: Post-Debridement Measurements/Treatment - Nurse 1 - General Ulcer Assessment Start: 09/12/22 09:55 Freq: Status: Active Protocol: ARNOLDO Activity Type Activity Date Activity User E-sign Co-sign Detail Recorded Client Recorded Date Recorded By Document 09/12/22 09:56 SC [id number] 09/12/22 09:59 AK Document 09/19/22 09:19 [id number] 09/19/22 09:25 Document 09/26/22 10:15 [id number] 09/26/22 10:24 Document 10/10/22 09:07 [id number] 10/10/22 09:09 09/12/22 09/19/22 09/26/22 09:56 09:19 10:15 - Today's Visit Information Type of service Follow-up Visit Follow-up Visit Follow-up Visit (Physician/NANOTECHNOLOGY ENGINEERING TECHNOLOGIST (Physician/NANOTECHNOLOGY ENGINEERING TECHNOLOGIST (Physician/NANOTECHNOLOGY ENGINEERING TECHNOLOGIST ) ) ) Arrival Mode Ambulatory Ambulatory,Cane Ambulatory Patient Identification Verified (Name & Yes Yes Yes ) Patient Requires Transmission-Based No No No Precautions Safety Precautions NA NA Fall Prevention Height and Weight Body Mass Index (BMI) 26.3 26.3 26.3 BMI Classification Overweight Overweight Overweight Vital Signs Temperature (97.8 F-99.1 F) 97.1 F L 96.5 F L 96.8 F L Temperature Source Temporal Temporal Temporal Pulse Rate (60-100) 81 78 83 Pulse Location Monitor Monitor Monitor Respiratory Rate (12-18) 16 18 Respiratory rate source Observation Observation Oxygen Delivery Method Room Air Blood Pressure (90/60-120/80) 141/76 H 155/69 H 152/72 H Blood Pressure Mean (mm Hg) 97 97 98 Source Monitor Monitor Monitor Position Sitting Sitting Blood Pressure Location Right Arm Left Arm History Since Last Visit- (Skip if this is Patient's initial visit) Have you changed medications since your No No No last visit? Any new allergies or adverse reactions No No No Had a fall/change in ADL's that may No No No increase risk of falls Signs or symptoms of abuse and/or No No No neglect since last visit Have you been in the hospital since your No No No last visit? Has dressing in place as prescribed Yes Yes Yes Has compression in place as prescribed N/A N/A N/A Has offloadiing in place as prescribed N/A Yes N/A Experienced any changes in pain level or No No No management Left Footwear Regular Shoe Regular Shoe Slipper Right Footwear Regular Shoe Regular Shoe Slipper Pain Scale: 0-10 Numeric Is Patient Pain Free? Yes Yes Yes 10/10/22 09:07 WC - Today's Visit Information Type of service Follow-up Visit (Physician/NANOTECHNOLOGY ENGINEERING TECHNOLOGIST ) Arrival Mode Ambulatory,Cane Patient Identification Verified (Name & Yes ) Patient Requires Transmission-Based Precautions Safety Precautions NA Height and Weight Body Mass Index (BMI) 26.3 BMI Classification Overweight Vital Signs Temperature (97.8 F-99.1 F) 95.6 F L Temperature Source Temporal Pulse Rate (60-100) 77 Pulse Location Monitor Respiratory Rate (12-18) 18 Respiratory rate source Observation Oxygen Delivery Method Room Air Blood Pressure (90/60-120/80) 140/66 H Blood Pressure Mean (mm Hg) 90 Source Monitor Position Semi-Fowlers Blood Pressure Location Left Arm History Since Last Visit- (Skip if this is Patient's initial visit) Have you changed medications since your No last visit? Any new allergies or adverse reactions No Had a fall/change in ADL's that may No increase risk of falls Signs or symptoms of abuse and/or No neglect since last visit Have you been in the hospital since your No last visit? Has dressing in place as prescribed Yes Has compression in place as prescribed No Has offloadiing in place as prescribed No Experienced any changes in pain level or No management Left Footwear Regular Shoe Right Footwear Regular Shoe Pain Scale: 0-10 Numeric Is Patient Pain Free? Yes WC - Nurse 1 - General Ulcer Measurement Start: 09/12/22 09:55 Freq: Status: Active Protocol: Activity Type Activity Date Activity User E-sign Co-sign Detail Recorded Client Recorded Date Recorded By Document 09/12/22 09:56 AK [id number] 09/12/22 09:59 AK Document 09/19/22 09:19 JF [id number] 09/19/22 09:25 JF Document 09/26/22 10:15 KW [id number] 09/26/22 10:24 KW Document 10/10/22 09:07 JF [id number] 10/10/22 09:09 JF 09/12/22 09/19/22 09/26/22 09:56 09:19 10:15 Wound Center Nurse 1 #3 R Lat LE -Combined with other wound No No -Current Size (cm) - Length 0.4 0.6 -Current Size (cm) - Width 0.4 0.5 -Current Size (cm) - Depth 0.3 0.2 -Total Square Cm 0.16 0.30 -Date of Last Picture (Recall this field) -Photo Taken Yes Yes -Epithelialization None Present -Tunneling No No -Undermining/Tunneling No No -Circular Undermining No No -Change in Wound Grade/Stage No -Exudate Amt Medium Small -Exudate Type Serosanguineous Serosanguineous Sanguineous -Wound Margin Distinct, Flat & Intact Distinct, Outline Outline Attached Attached -Granulation Amt Medium (34-66%) Medium (34-66%) Medium (34-66%) -Granulation Quality [place] -Slough/Fibrin Yes Yes Yes -Necrosis Amt Medium (34-66%) Small (1-33%) Small (1-33%) -Necrotic Tissue Type Adherent Slough Adherent Slough Adherent Slough -Structure Exposed N/A N/A -Texture (Chitra-wound Skin Appearance) No Abnormality, Assessed, Assessed Assessed Localized Edema -Moisture (Chitra-wound Skin Appearance) No Abnormality, Assessed,Dry/ Assessed,Dry/ Assessed Scaly Scaly -Color (Chitra-wound Skin Appearance) No Abnormality, Assessed Assessed, Assessed Ecchymosis -Temperature (Chitra-wound Skin No Abnormality No Abnormality Appearance) (Pt Warm) (Pt Warm) -Tenderness on Palpation (Chitra-wound No No Skin Appearance) -Ulcer Cleansing Rinsed/ Rinsed/ Rinsed/ Irrigated with Irrigated with Irrigated with Saline Saline Saline -Foul Odor after Cleansing No No No -Anesthetic Used 5% Lidocaine 5% Lidocaine 5% Lidocaine Gel Gel Gel Lower Limb Edema Present Yes Right Calf (cm) 30.5 Right Ankle (cm) 21.2 10/10/22 09:07 Wound Center Nurse 1 #3 R Lat LE -Combined with other wound -Current Size (cm) - Length 0.5 -Current Size (cm) - Width 0.4 -Current Size (cm) - Depth 0.2 -Total Square Cm 0.20 -Date of Last Picture (Recall this 10/10/22 field) -Photo Taken Yes -Epithelialization -Tunneling No -Undermining/Tunneling No -Circular Undermining No -Change in Wound Grade/Stage -Exudate Amt Small -Exudate Type Serosanguineous -Wound Margin Distinct, Outline Attached -Granulation Amt Small (1-33%) -Granulation Quality Red -Slough/Fibrin -Necrosis Amt None Present (0 %) -Necrotic Tissue Type -Structure Exposed -Texture (Chitra-wound Skin Appearance) Assessed -Moisture (Chitra-wound Skin Appearance) Assessed,Dry/ Scaly -Color (Chitra-wound Skin Appearance) Assessed, Erythema -Temperature (Chitra-wound Skin No Abnormality Appearance) (Pt Warm) -Tenderness on Palpation (Chitra-wound Skin Appearance) -Ulcer Cleansing Rinsed/ Irrigated with Saline -Foul Odor after Cleansing -Anesthetic Used 5% Lidocaine Gel Lower Limb Edema Present NA Right Calf (cm) Right Ankle (cm) WC - Nurse 2 - General Ulcer CM Notes Start: 09/12/22 09:55 Freq: Status: Active Protocol: Activity Type Activity Date Activity User E-sign Co-sign Detail Recorded Client Recorded Date Recorded By Document 06/01/23 12:19 PL [id number] 09/12/22 12:20 PL Document 09/19/22 12:38 PL [id number] 09/19/22 12:39 PL Document 09/26/22 12:14 PL [id number] 09/26/22 12:15 PL 09/12/22 09/19/22 09/26/22 12:19 12:38 12:14 Wound Center Nurse 2 #3 R Lat LE -Time 09:28 09:35 11:01 -Correct Patient Yes Yes Yes -Correct Side, Site, Position Yes Yes Yes -Correct Procedure Yes Yes Yes -Procedure Performed Yes Yes Yes -Type of Procedure Debridement Debridement Debridement -Clinical Debridement Subcutaneous Subcutaneous Subcutaneous -Tissue Removed Subcutaneous Subcutaneous Subcutaneous -Post Debridement (cm) - Length 0.6 0.6 0.5 -Post Debridement (cm) - Width 0.6 0.4 0.3 -Post Debridement (cm) - Depth 0.2 0.1 0.1 -Total Square (Post) (cm) 0.36 0.24 0.15 -Area of Debridement (cm) - Length 0.6 0.6 0.5 -Area of Debridement (cm) - Width 0.6 0.4 0.3 -Total Square (Area) (cm) 0.36 0.24 0.15 -Tunneling No No No -Undermining/Tunneling No No No -Circular Undermining No No No -Wound/Ulcer Outcome Not Healed Not Healed Not Healed -Ulcer Cleansing Rinsed/ Rinsed/ Rinsed/ Irrigated with Irrigated with Irrigated with Saline Saline Saline -Foul Odor after Cleansing No No No -Bioengineered Tissue No No No -Bleeding Controlled with Pressure Pressure Pressure -Treatment Response Procedure Procedure Procedure Tolerated Well Tolerated Well Tolerated Well -Debridement - Subq, 1st 20sq cm Yes Yes Yes Pain Scale: 0-10 Numeric Is Patient Pain Free? Yes Yes Yes WC - Nurse 3 - General Ulcer D/C NN Start: 09/12/22 09:55 Freq: Status: Active Protocol: Activity Type Activity Date Activity User E-sign Co-sign Detail Recorded Client Recorded Date Recorded By Document 09/12/22 09:56 SC [id number] 09/12/22 09:59 AK Document 09/19/22 10:10 AK [id number] 09/19/22 10:11 AK 09/12/22 09/19/22 09:56 10:10 Vital Signs Temperature (97.8 F-99.1 F) 97.1 F L Temperature Source Temporal Pulse Rate (60-100) 81 Pulse Location Monitor Blood Pressure (90/60-120/80) 141/76 H Blood Pressure Mean (mm Hg) 97 Source Monitor Pain Scale: 0-10 Numeric Is Patient Pain Free? Yes Yes Wound Care Center Nurse 3 #3 R Lat LE -Ulcer Cleansing Rinsed/ Rinsed/ Irrigated with Irrigated with Saline Saline -Foul Odor after Cleansing No No -Negative Pressure Wound Therapy N/A N/A -Primary Dressing Applied Promogran Promogran Olivia Matter Olivia Matter -Other Dressing offloaded with x padding felt/foam -Primary Dressing Covered/Secured with Dry Gauze & Dry Gauze & Roll Gauze, Roll Gauze, Secured with Secured with Tape Tape -Promogran Olivia Matter 1 1 WC - Visit Discharge Discharge Condition Stable Ambulatory Status Ambulatory,Cane Transportation Private Auto Medication Reconcilliation completed & Yes provided to patient/care provider Clinical Summary of Care Provided Yes Assessment/Plan Assessment/Plan (1) Non-pressure chronic ulcer of right calf with fat layer exposed: CODE(S): L97.212 - Non-pressure chronic ulcer of right calf with fat layer exposed (2) Raynaud disease: CODE(S): I73.00 - Raynaud's syndrome without gangrene (3) Bilateral lower extremity edema: CODE(S): R60.0 - Localized edema (4) Essential (primary) hypertension: CODE(S): I10 - Essential (primary) hypertension (5) HLD (hyperlipidemia): CODE(S): E78.5 - Hyperlipidemia, unspecified QUALIFIERS: Hyperlipidemia type: pure hypercholesterolemia Qualified Code(s): E78.00 - Pure hypercholesterolemia, unspecified; E78.0 - Pure hypercholesterolemia (6) Chronic diastolic (congestive) heart failure: CODE(S): I50.32 - Chronic diastolic (congestive) heart failure PLAN: Plan Patient seen and evaluated Ulceration to the right lateral ankle underwent debridement as noted in clinical panel above.? Ulceration measures 0.3 cm x 0.2 cm x 0.1 cm.? Ulceration demonstrates no signs of infection.? Ulceration was dressed with Olivia and dry sterile dressing.? She is to change this dressing daily.? Offloading padding applied about the ankle as patient is a side sleeper.? Also recommended continued use placing pillow under ankle for additional offloading. This ulcerative site did demonstrate decrease in size versus previous visit. Ulceration noted to the posterior aspect of the right lower extremity overlying the distal aspect of the Achilles tendon remains healed.? States ulceration is related to shoe gear irritation.? Site demonstrates no signs of infection.? Discussed continued use of Tubigrip compression and elevation of lower extremities at all times of rest to aid in edema control. I discussed the signs and symptoms of infection with her today.? She was instructed that if she gets any increasing redness about the wound margins extending up the back of her leg, any purulent drainage from the wound site, increasing foul odor, or if she experiences any fever greater than 101 degree, nausea, vomiting, or chills that these are signs of a progressing infection and she needs to report to the ED.? She voices understanding of this today. The following work up and care recommendations were made: Dressing: Olivia and dry sterile dressing Wash: Soap and water Tissue growth optimization: Olivia Offload: Ensure the back of the leg is not in direct contact with chair/recliner and remains padded by pillows offloading at all times of rest Vascular: Patient does have adequate DP and PT pulse pulses.? Capillary fill time is adequate to the digits Edema: Continued elevation of the lower extremities at times of rest and Tubigrip compression stocking Infection: No signs of infection Pain: May take [id number] Tylenol extra strength for pain Host factors: Advanced age, edema, Raynaud's/vascular disease ? I answered all the patient's questions.? To return to the wound healing center in 1 week or call sooner if the patient has any questions or concerns.
== END 2022-10-11 23:59 | disposition home or self-care (01) ==
LOC: WC 09:30
PROVIDERS: PCP Internal Medicine; Visit Provider Student in an Organized Health Care Education/Training Program
DX: I73.9 Peripheral vascular disease, unspecified (principal); L97.212 Non-pressure chronic ulcer of right calf with fat layer exposed; L97.312 Non-pressure chronic ulcer of right ankle with fat layer exposed; I11.0 Hypertensive heart disease with heart failure; I50.32 Chronic diastolic (congestive) heart failure; I73.00 Raynaud's syndrome without gangrene; E78.00 Pure hypercholesterolemia, unspecified; R60.0 Localized edema
CPT/HCPCS: 11042

== ENCOUNTER → 2022-10-16 | Outpatient (CLI) | payer MEDICARE, OTHER, SELFPAY ==
[2022-10-16 11:41] LABS: Absolute Lymphocyte Count 1.43 X10^3/uL (0.83-4.51); Absolute Neutrophil Count 4.9 X10^3/uL (2.0-7.7); Basophil# 0.01 X10^3/uL; Basophil% 0.1 % (0-1); Eosinophil# 0.05 X10^3/uL; Eosinophils% 0.7 % (0-5); Hematocrit 43.2 % (37-47); Hemoglobin 13.3 g/dL (12.0-15.0); Lymphocyte # 1.43 X10^3/ul (0.83-4.51); Lymphocyte % 20.5 % (19-41); Mean Corp Hgb Conc 30.8 g/dL (32-36); Mean Corpuscular Volume 97.3 fL (81-99); Mean Platelet Vol. 10.3 fl (6.2-12.0); Monocyte# 0.59 X10^3/uL; Monocyte% 8.4 % (0-10); NRBC Flagged by Analyzer 0 % (0-5); Neutrophil # 4.87 X10^3/uL (2.7-7.7); Neutrophil % 69.7 % (47-70); Platelet Count 176 K/mm3 (150-450); RBC Distribution Width CV 13.6 % (11.6-14.6); RBC Distribution Width SD 48.3 fl (35.1-43.9); Red Blood Count 4.44 M/mm3 (4.2-5.4)
[2022-10-16 11:50] LABS: International Normalized Ratio 1.2; Prothrombin Time (Protime)PT. 14.8 SECONDS (11.7-14.9)
[2022-10-16 11:55] LABS: ALB/GLOB Ratio 1.1 RATIO (0.9-2.4); AST(SGOT) 15 U/L (15-37); Alanine Aminotransfer ALT/SGPT 14 U/L (13-56); Albumin, Serum 3.4 g/dL (3.2-5.0); Alkaline Phosphatase 54 U/L (45-117); Anion Gap 4 (5-15); BUN 20 mg/dL (7-18); BUN/Creat Ratio 17.7 RATIO (10-20); Calcium,Total 8.6 mg/dL (8.5-10.1); Chloride 109 mmol/L (98-107); Creatinine, Serum 1.13 mg/dL (0.55-1.02); EST Glomerular Filtration Rate 48 mL/min (>60); Est Glom Filt Rate - Afr Amer 59 mL/min (>60); Globulin 3.2 g/dL (2.2-4.2); Glucose 170 mg/dL (74-106); Potassium 4.3 mmol/L (3.5-5.1); Protein, Total 6.6 g/dL (6.4-8.2); Sodium Level 138 mmol/L (136-145)
== END | disposition home or self-care (01) ==
LOC: LAB 04:07
PROVIDERS: PCP Internal Medicine; Visit Provider Physician Assistant Medical
DX: I48.92 Unspecified atrial flutter (principal); I48.0 Paroxysmal atrial fibrillation; Z79.01 Long term (current) use of anticoagulants
CPT/HCPCS: 36415; 80053; 85025; 85610

== ENCOUNTER → 2022-10-25 | Outpatient (CLI) | payer MEDICARE, OTHER, SELFPAY ==
[2022-10-25 12:34] LABS: International Normalized Ratio 1.1; Prothrombin Time (Protime)PT. 14.7 SECONDS (11.7-14.9)
== END | disposition home or self-care (01) ==
LOC: LAB 11:38
PROVIDERS: PCP Internal Medicine; Visit Provider Physician Assistant Medical
DX: I48.92 Unspecified atrial flutter (principal); I48.0 Paroxysmal atrial fibrillation; Z79.01 Long term (current) use of anticoagulants
CPT/HCPCS: 36415; 85610

== ENCOUNTER 2022-10-31 09:30 | Outpatient (RCR) | payer MEDICARE, OTHER, SELFPAY ==
[2022-10-12 01:18] VITALS: BP 140/66; PULSE 77; RESP 18; TEMP 35.3; BMI 26.3
[2022-10-17 10:13] VITALS: BP 155/83; PULSE 85; TEMP 36.2; BMI 26.3
--- NOTE | 2022-10-17 12:40 | PN.PCM_ITS ---
History of Present Illness Date of Service: 10/17/22 Chief Complaint: Right lower extremity wound History of Wound: Patient is an 86-year-old female with history of atherosclerotic disease, peripheral vascular disease, Raynaud's, hyperlipidemia who presented to Dr. Dang office with new wound to the posterior aspect of her right lower extremity secondary to shoe gear rubbing against the back of her leg. States that she was placed on an antibiotic and had been applying antibiotic ointment to the wound. She was seen by me in office last week for her debridement of nails. She stated that she would be seen in the wound care center next week and thus I have not started treatment of the right lower extremity wound performing debridement of the wound in office. She states wound has been present for only a few weeks without improvement prior to seeking care. Subjective Subjective This is an 86-year-old female who presents to the wound care center for follow- up of a right lower extremity wound.? She has been changing the outer dressings to the site daily.? She states she is continuing to offload lateral leg with padding and pillow during sleep. She denies constitutional symptoms today.? She has no further complaints today. Objective Data Objective Data Vital Signs: Vital Signs Temp Pulse Resp BP 97.1 F L 85 18 155/83 H 10/17/22 10:13 10/17/22 10:13 10/12/22 01:18 10/17/22 10:13 Weight: 76.204 kg Body Mass Index (BMI) 26.3 Physical Exam Const alert, oriented x3 and no apparent distress General Appearance: cooperative HEENT normocephalic Eyes General Eye: normal appearance of both eyes Neck General: normal visual inspection Lymph Lymphatic: no lymphadenopathy noted and no lymphedema noted Resp normal respiratory effort Cardio regular rate and regular rhythm Extremity normal capillary refill, no joint enlargement, no calf tenderness and no pedal edema Extremity Narrative: DP and PT pulses weakly palpable.? CFT < 5 seconds and adequate to the digits.? There is bilateral lower extremity edema +2 pitting with purplish discoloration of the entire lower extremity secondary to her peripheral vascular disease and Raynaud's.? Wound to posterior leg has healed. Wound to lateral malleolus with fibrogranular base and no signs of infection. Skin no rashes or lesions noted, skin turgor normal and no jaundice Wound Narrative: There is a wound noted to the posterior aspect of the right lower extremity at the distal aspect of the Achilles tendon secondary to shoe heel cup rubbing the back of her lower extremity.? Wound remains healed. No signs of infection. Ulceration noted to the right lateral lower extremity demonstrates mixed fibrogranular layer.? No purulent drainage, no malodor, no palpable fluctuance/bogginess, no visible abscess noted. Neuro moves all extremities Debridement Note Debridement Note Wound debrided: Right lateral ankle Laterality: Right Wound Grade/Stage: Mustafa stage I Type of Debridement: Excisional debridement Anesthesia Used: 5% Lidocaine Gel Depth: Down to and including healthy tissue and in the subcutaneous layer Percentage of wound debrided: 100 Instrument Used: - (1 mm curette) Tissue Removed: Fibrous, devitalized subcutaneous, biofilm, slough Severity: Fat Layer Exposed Amount of bleeding with debridement: Mild Bleeding Controlled with: Compression and gauze Patient tolerated procedure: Patient tolerated procedure well Post-Debridement Measurements and Additional Note: Post-Debridement Measurements/Treatment WC - Nurse 1 - General Ulcer Assessment Start: 10/17/22 10:13 Freq: Status: Active Protocol: ARNOLDO Activity Type Activity Date Activity User E-sign Co-sign Detail Recorded Client Recorded Date Recorded By Document 10/17/22 10:13 RI [id number] 10/17/22 10:15 ELBA 10/17/22 10:13 - Today's Visit Information Type of service Follow-up Visit (Physician/PARTS CONTROL CLERK ) Arrival Mode Ambulatory,Cane Patient Identification Verified (Name & Yes ) Patient Requires Transmission-Based No Precautions Safety Precautions NA Height and Weight Body Mass Index (BMI) 26.3 BMI Classification Overweight Vital Signs Temperature (97.8 F-99.1 F) 97.1 F L Temperature Source Temporal Pulse Rate (60-100) 85 Pulse Location Monitor Blood Pressure (90/60-120/80) 155/83 H Blood Pressure Mean (mm Hg) 107 Source Monitor History Since Last Visit- (Skip if this is Patient's initial visit) Have you changed medications since your No last visit? Any new allergies or adverse reactions No Had a fall/change in ADL's that may No increase risk of falls Signs or symptoms of abuse and/or No neglect since last visit Have you been in the hospital since your Yes last visit? Has dressing in place as prescribed No Has compression in place as prescribed N/A Has offloadiing in place as prescribed N/A Experienced any changes in pain level or No management Left Footwear Regular Shoe Right Footwear Regular Shoe Pain Scale: 0-10 Numeric Is Patient Pain Free? Yes - Nurse 1 - General Ulcer Measurement Start: 10/17/22 10:13 Freq: Status: Active Protocol: Activity Type Activity Date Activity User E-sign Co-sign Detail Recorded Client Recorded Date Recorded By Document 10/17/22 10:13 AK [id number] 10/17/22 10:15 AK 10/17/22 10:13 Wound Center Nurse 1 #3 R Lat LE -Combined with other wound No -Current Size (cm) - Length 0.6 -Current Size (cm) - Width 0.3 -Current Size (cm) - Depth 0.2 -Total Square Cm 0.18 -Photo Taken Yes -Tunneling No -Undermining/Tunneling No -Circular Undermining No -Change in Wound Grade/Stage No -Exudate Amt Small -Exudate Type Serosanguineous -Wound Margin Distinct, Outline Attached -Granulation Amt None Present (0 %) -Granulation Quality N/A -Slough/Fibrin Yes -Necrosis Amt Large (67-100%) -Necrotic Tissue Type Adherent Slough -Structure Exposed N/A -Texture (Chitra-wound Skin Appearance) No Abnormality, Assessed -Moisture (Chitra-wound Skin Appearance) No Abnormality, Assessed -Color (Chitra-wound Skin Appearance) No Abnormality, Assessed -Temperature (Chitra-wound Skin No Abnormality Appearance) (Pt Warm) -Tenderness on Palpation (Chitra-wound No Skin Appearance) -Ulcer Cleansing Rinsed/ Irrigated with Saline -Foul Odor after Cleansing No -Anesthetic Used 5% Lidocaine Gel - Nurse 2 - General Ulcer CM Notes Start: 10/17/22 10:13 Freq: Status: Active Protocol: Activity Type Activity Date Activity User E-sign Co-sign Detail Recorded Client Recorded Date Recorded By Document 10/17/22 12:00 LALI [id number] 10/17/22 12:00 LALI 10/17/22 12:00 Wound Center Nurse 2 -Time 10:21 -Correct Patient Yes -Correct Side, Site, Position Yes -Correct Procedure Yes -Procedure Performed Yes -Type of Procedure Debridement -Clinical Debridement Subcutaneous -Tissue Removed Subcutaneous -Post Debridement (cm) - Length 0.3 -Post Debridement (cm) - Width 0.3 -Post Debridement (cm) - Depth 0.1 -Total Square (Post) (cm) 0.09 -Area of Debridement (cm) - Length 0.3 -Area of Debridement (cm) - Width 0.3 -Total Square (Area) (cm) 0.09 -Tunneling No -Undermining/Tunneling No -Circular Undermining No -Wound/Ulcer Outcome Not Healed -Ulcer Cleansing Rinsed/ Irrigated with Saline -Foul Odor after Cleansing No -Bioengineered Tissue No -Bleeding Controlled with Pressure -Treatment Response Procedure Tolerated Well -Debridement - Subq, 1st 20sq cm Yes Pain Scale: 0-10 Numeric Is Patient Pain Free? Yes - Nurse 3 - General Ulcer D/C NN Start: 10/17/22 10:13 Freq: Status: Active Protocol: Activity Type Activity Date Activity User E-sign Co-sign Detail Recorded Client Recorded Date Recorded By Document 10/17/22 10:37 [id number] 10/17/22 10:37 10/17/22 10:37 Wound Care Center Nurse 3 #3 R Lat LE -Ulcer Cleansing Rinsed/ Irrigated with Saline -Primary Dressing Applied Promogran Olivia Matter -Primary Dressing Covered/Secured with Dry Gauze & Roll Gauze, Secured with Tape -Promogran Olivia Matter 1 Pain Scale: 0-10 Numeric Is Patient Pain Free? Yes - Visit Discharge Discharge Condition Stable Ambulatory Status Ambulatory,Cane Transportation Private Auto Medication Reconcilliation completed & No provided to patient/care provider Clinical Summary of Care Provided Yes Assessment/Plan Assessment/Plan (1) Essential (primary) hypertension: CODE(S): I10 - Essential (primary) hypertension (2) HLD (hyperlipidemia): CODE(S): E78.5 - Hyperlipidemia, unspecified QUALIFIERS: Hyperlipidemia type: pure hypercholesterolemia Qualified Code(s): E78.00 - Pure hypercholesterolemia, unspecified; E78.0 - Pure hypercholesterolemia (3) Bilateral lower extremity edema: CODE(S): R60.0 - Localized edema (4) Raynaud disease: CODE(S): I73.00 - Raynaud's syndrome without gangrene (5) Non-pressure chronic ulcer of right calf with fat layer exposed: CODE(S): L97.212 - Non-pressure chronic ulcer of right calf with fat layer exposed (6) Chronic diastolic (congestive) heart failure: CODE(S): I50.32 - Chronic diastolic (congestive) heart failure PLAN: Plan Patient seen and evaluated Ulceration to the right lateral ankle underwent debridement as noted in clinical panel above.? Ulceration measures 0.3 cm x 0.3 cm x 0.1 cm.? Ulceration demonstrates no signs of infection.? Ulceration was dressed with Olivia and dry sterile dressing.? She is to change this dressing daily.? Offloading padding applied about the ankle as patient is a side sleeper.? Also recommended continued use placing pillow under ankle for additional offloading. This ulcerative site demonstrates no change in size versus previous visit. Ulceration noted to the posterior aspect of the right lower extremity overlying the distal aspect of the Achilles tendon remains healed.? States ulceration is related to shoe gear irritation.? Site demonstrates no signs of infection.? Discussed continued use of Tubigrip compression and elevation of lower extremities at all times of rest to aid in edema control. I discussed the signs and symptoms of infection with her today.? She was instructed that if she gets any increasing redness about the wound margins extending up the back of her leg, any purulent drainage from the wound site, increasing foul odor, or if she experiences any fever greater than 101 degree, nausea, vomiting, or chills that these are signs of a progressing infection and she needs to report to the ED.? She voices understanding of this today. The following work up and care recommendations were made: Dressing: Olivia and dry sterile dressing Wash: Soap and water Tissue growth optimization: Olivia Offload: Ensure the back of the leg is not in direct contact with chair/recliner and remains padded by pillows offloading at all times of rest Vascular: Patient does have adequate DP and PT pulse pulses.? Capillary fill time is adequate to the digits Edema: Continued elevation of the lower extremities at times of rest and Tubigrip compression stocking Infection: No signs of infection Pain: May take [id number] Tylenol extra strength for pain Host factors: Advanced age, edema, Raynaud's/vascular disease ? I answered all the patient's questions.? To return to the wound healing center in 2 weeks or call sooner if the patient has any questions or concerns.
[2022-10-31 09:33] VITALS: BP 145/70; PULSE 84; RESP 16; TEMP 35.5; BMI 26.3
--- NOTE | 2022-10-31 09:46 | PCM.WC.PN ---
History of Present Illness Date of Service: 10/31/22 Chief Complaint: Right lower extremity wound History of Wound: Patient is an 86-year-old female with history of atherosclerotic disease, peripheral vascular disease, Raynaud's, hyperlipidemia who presented to Dr. Dang office with new wound to the posterior aspect of her right lower extremity secondary to shoe gear rubbing against the back of her leg. States that she was placed on an antibiotic and had been applying antibiotic ointment to the wound. She was seen by me in office last week for her debridement of nails. She stated that she would be seen in the wound care center next week and thus I have not started treatment of the right lower extremity wound performing debridement of the wound in office. She states wound has been present for only a few weeks without improvement prior to seeking care. Subjective Subjective This is an 86-year-old female who presents to the wound care center for follow-up of a right lower extremity wound.? She has been changing the outer dressings to the site daily.? She states she is continuing to offload lateral leg with padding and pillow during sleep. She states her 87th birthday will be in 2 days. She denies constitutional symptoms today.? She has no further complaints today. Objective Data Objective Data Vital Signs: Vital Signs Temp Pulse Resp BP 95.9 F L 84 16 145/70 H 10/31/22 09:33 10/31/22 09:33 10/31/22 09:33 10/31/22 09:33 Weight: 76.204 kg Body Mass Index (BMI) 26.3 Physical Exam Const alert, oriented x3 and no apparent distress General Appearance: cooperative HEENT normocephalic Eyes General Eye: normal appearance of both eyes Neck General: normal visual inspection Lymph Lymphatic: no lymphadenopathy noted and no lymphedema noted Resp normal respiratory effort Cardio regular rate and regular rhythm Extremity normal capillary refill, no joint enlargement, no calf tenderness and no pedal edema Extremity Narrative: DP and PT pulses weakly palpable.? CFT < 5 seconds and adequate to the digits.? There is bilateral lower extremity edema +2 pitting with purplish discoloration of the entire lower extremity secondary to her peripheral vascular disease and Raynaud's.? Wound to posterior leg has healed. Wound to lateral malleolus with fibrogranular base and no signs of infection. Skin no rashes or lesions noted, skin turgor normal and no jaundice Wound Narrative: There is a wound noted to the posterior aspect of the right lower extremity at the distal aspect of the Achilles tendon secondary to shoe heel cup rubbing the back of her lower extremity.? Wound remains healed. No signs of infection. Ulceration noted to the right lateral lower extremity demonstrates mixed fibrogranular layer.? No purulent drainage, no malodor, no palpable fluctuance/bogginess, no visible abscess noted. Neuro moves all extremities Debridement Note Debridement Note Wound debrided: Right lateral ankle Laterality: Right Wound Grade/Stage: Mustafa stage I Type of Debridement: Excisional debridement Anesthesia Used: 5% Lidocaine Gel Depth: Down to and including healthy tissue and in the subcutaneous layer Percentage of wound debrided: 100 Instrument Used: - (1 mm curette) Tissue Removed: Fibrous, devitalized subcutaneous, biofilm, slough Severity: Fat Layer Exposed Amount of bleeding with debridement: Mild Bleeding Controlled with: Compression and gauze Patient tolerated procedure: Patient tolerated procedure well Post-Debridement Measurements and Additional Note: Post-Debridement Measurements/Treatment - Nurse 1 - General Ulcer Assessment Start: 10/17/22 10:13 Freq: Status: Active Protocol: JO.SILVIA Activity Type Activity Date Activity User E-sign Co-sign Detail Recorded Client Recorded Date Recorded By Document 10/17/22 10:13 HI [id number] 10/17/22 10:15 HI Document 10/31/22 09:33 [id number] 10/31/22 09:38 10/17/22 10/31/22 10:13 09:33 - Today's Visit Information Type of service Follow-up Visit Follow-up Visit (Physician/PROTOTYPE MACHINIST (Physician/PROTOTYPE MACHINIST ) ) Arrival Mode Ambulatory,Cane Ambulatory,Cane Patient Identification Verified (Name & Yes Yes ) Patient Requires Transmission-Based No No Precautions Safety Precautions NA Height and Weight Body Mass Index (BMI) 26.3 26.3 BMI Classification Overweight Overweight Vital Signs Temperature (97.8 F-99.1 F) 97.1 F L 95.9 F L Temperature Source Temporal Temporal Pulse Rate (60-100) 85 84 Pulse Location Monitor Monitor Respiratory Rate (12-18) 16 Respiratory rate source Observation Blood Pressure (90/60-120/80) 155/83 H 145/70 H Blood Pressure Mean (mm Hg) 107 95 Source Monitor Manual Position Semi-Fowlers Blood Pressure Location Right Arm History Since Last Visit- (Skip if this is Patient's initial visit) Have you changed medications since your No No last visit? Any new allergies or adverse reactions No No Had a fall/change in ADL's that may No No increase risk of falls Signs or symptoms of abuse and/or No No neglect since last visit Have you been in the hospital since your Yes No last visit? Has dressing in place as prescribed No Yes Has compression in place as prescribed N/A Yes Has offloadiing in place as prescribed N/A Yes Experienced any changes in pain level or No No management Left Footwear Regular Shoe Regular Shoe Right Footwear Regular Shoe Regular Shoe Pain Scale: 0-10 Numeric Is Patient Pain Free? Yes Yes WC - Nurse 1 - General Ulcer Measurement Start: 10/17/22 10:13 Freq: Status: Active Protocol: Activity Type Activity Date Activity User E-sign Co-sign Detail Recorded Client Recorded Date Recorded By Document 10/17/22 10:13 HI [id number] 10/17/22 10:15 AK Document 10/31/22 09:33 [id number] 10/31/22 09:38 10/17/22 10/31/22 10:13 09:33 Wound Center Nurse 1 #3 R Lat LE -Combined with other wound No No -Current Size (cm) - Length 0.6 0.5 -Current Size (cm) - Width 0.3 0.4 -Current Size (cm) - Depth 0.2 0.2 -Total Square Cm 0.18 0.20 -Photo Taken Yes Yes -Epithelialization None Present -Tunneling No No -Undermining/Tunneling No No -Circular Undermining No No -Change in Wound Grade/Stage No -Exudate Amt Small None Present -Exudate Type Serosanguineous -Wound Margin Distinct, Fibrotic Scar, Outline Thickened Scar Attached -Granulation Amt None Present (0 None Present (0 %) %) -Granulation Quality N/A -Slough/Fibrin Yes Yes -Necrosis Amt Large (67-100%) Large (67-100%) -Necrotic Tissue Type Adherent Slough Adherent Slough -Structure Exposed N/A N/A -Texture (Chitra-wound Skin Appearance) No Abnormality, Assessed Assessed -Moisture (Chitra-wound Skin Appearance) No Abnormality, Assessed,Dry/ Assessed Scaly -Color (Chitra-wound Skin Appearance) No Abnormality, Assessed Assessed -Temperature (Chitra-wound Skin No Abnormality No Abnormality Appearance) (Pt Warm) (Pt Warm) -Tenderness on Palpation (Chitra-wound No No Skin Appearance) -Ulcer Cleansing Rinsed/ Rinsed/ Irrigated with Irrigated with Saline Saline -Foul Odor after Cleansing No No -Anesthetic Used 5% Lidocaine 5% Lidocaine Gel Gel Lower Limb Edema Present NA Right Calf (cm) 31.0 Right Ankle (cm) 21.4 WC - Nurse 2 - General Ulcer CM Notes Start: 10/17/22 10:13 Freq: Status: Active Protocol: Activity Type Activity Date Activity User E-sign Co-sign Detail Recorded Client Recorded Date Recorded By Document 10/17/22 12:00 PL [id number] 10/17/22 12:00 PL 10/17/22 12:00 Wound Center Nurse 2 #3 R Lat LE -Time 10:21 -Correct Patient Yes -Correct Side, Site, Position Yes -Correct Procedure Yes -Procedure Performed Yes -Type of Procedure Debridement -Clinical Debridement Subcutaneous -Tissue Removed Subcutaneous -Post Debridement (cm) - Length 0.3 -Post Debridement (cm) - Width 0.3 -Post Debridement (cm) - Depth 0.1 -Total Square (Post) (cm) 0.09 -Area of Debridement (cm) - Length 0.3 -Area of Debridement (cm) - Width 0.3 -Total Square (Area) (cm) 0.09 -Tunneling No -Undermining/Tunneling No -Circular Undermining No -Wound/Ulcer Outcome Not Healed -Ulcer Cleansing Rinsed/ Irrigated with Saline -Foul Odor after Cleansing No -Bioengineered Tissue No -Bleeding Controlled with Pressure -Treatment Response Procedure Tolerated Well -Debridement - Subq, 1st 20sq cm Yes Pain Scale: 0-10 Numeric Is Patient Pain Free? Yes - Nurse 3 - General Ulcer D/C NN Start: 10/17/22 10:13 Freq: Status: Active Protocol: Activity Type Activity Date Activity User E-sign Co-sign Detail Recorded Client Recorded Date Recorded By Document 10/17/22 10:37 KW [id number] 10/17/22 10:37 KW 10/17/22 10:37 Wound Care Center Nurse 3 #3 R Lat LE -Ulcer Cleansing Rinsed/ Irrigated with Saline -Primary Dressing Applied Promogran Olivia Matter -Primary Dressing Covered/Secured with Dry Gauze & Roll Gauze, Secured with Tape -Promogran Olivia Matter 1 Pain Scale: 0-10 Numeric Is Patient Pain Free? Yes WC - Visit Discharge Discharge Condition Stable Ambulatory Status Ambulatory,Cane Transportation Private Auto Medication Reconcilliation completed & No provided to patient/care provider Clinical Summary of Care Provided Yes Assessment/Plan Assessment/Plan (1) Essential (primary) hypertension: CODE(S): I10 - Essential (primary) hypertension (2) HLD (hyperlipidemia): CODE(S): E78.5 - Hyperlipidemia, unspecified QUALIFIERS: Hyperlipidemia type: pure hypercholesterolemia Qualified Code(s): E78.00 - Pure hypercholesterolemia, unspecified; E78.0 - Pure hypercholesterolemia (3) Bilateral lower extremity edema: CODE(S): R60.0 - Localized edema (4) Raynaud disease: CODE(S): I73.00 - Raynaud's syndrome without gangrene (5) Non-pressure chronic ulcer of right calf with fat layer exposed: CODE(S): L97.212 - Non-pressure chronic ulcer of right calf with fat layer exposed (6) Chronic diastolic (congestive) heart failure: CODE(S): I50.32 - Chronic diastolic (congestive) heart failure PLAN: Plan Patient seen and evaluated Ulceration to the right lateral ankle underwent debridement as noted in clinical panel above.? Ulceration measures 0.2 cm x 0.3 cm x 0.1 cm.? Ulceration demonstrates no signs of infection.? Ulceration was dressed with Hydrogel and dry sterile dressing.? She is to change this dressing daily.? Offloading padding applied about the ankle as patient is a side sleeper.? Also recommended continued use placing pillow under ankle for additional offloading. This ulcerative site demonstrates minimal change in size versus previous visit. Ulceration noted to the posterior aspect of the right lower extremity overlying the distal aspect of the Achilles tendon remains healed.? States ulceration is related to shoe gear irritation.? Site demonstrates no signs of infection.? Discussed continued use of Tubigrip compression and elevation of lower extremities at all times of rest to aid in edema control. I discussed the signs and symptoms of infection with her today.? She was instructed that if she gets any increasing redness about the wound margins extending up the back of her leg, any purulent drainage from the wound site, increasing foul odor, or if she experiences any fever greater than 101 degree, nausea, vomiting, or chills that these are signs of a progressing infection and she needs to report to the ED.? She voices understanding of this today. The following work up and care recommendations were made: Dressing: Hydrogel and dry sterile dressing Wash: Soap and water Tissue growth optimization: Hydrogel Offload: Ensure the back of the leg is not in direct contact with chair/recliner and remains padded by pillows offloading at all times of rest Vascular: Patient does have adequate DP and PT pulse pulses.? Capillary fill time is adequate to the digits Edema: Continued elevation of the lower extremities at times of rest and Tubigrip compression stocking Infection: No signs of infection Pain: May take [id number] Tylenol extra strength for pain Host factors: Advanced age, edema, Raynaud's/vascular disease ? I answered all the patient's questions.? To return to the wound healing center in 2 weeks or call sooner if the patient has any questions or concerns.
[2022-10-31 11:01] LABS: International Normalized Ratio 1.4; Prothrombin Time (Protime)PT. 16.8 SECONDS (11.7-14.9)
== END 2022-11-11 23:59 | disposition home or self-care (01) ==
LOC: WC 09:30
PROVIDERS: Physician Assistant Medical; PCP Internal Medicine; Visit Provider Student in an Organized Health Care Education/Training Program
DX: I73.9 Peripheral vascular disease, unspecified (principal); L97.212 Non-pressure chronic ulcer of right calf with fat layer exposed; L97.312 Non-pressure chronic ulcer of right ankle with fat layer exposed; I11.0 Hypertensive heart disease with heart failure; I50.32 Chronic diastolic (congestive) heart failure; E78.00 Pure hypercholesterolemia, unspecified; I73.00 Raynaud's syndrome without gangrene
CPT/HCPCS: 11042; 36415; 85610

== ENCOUNTER → 2022-11-06 | Outpatient (CLI) | payer MEDICARE, OTHER, SELFPAY ==
[2022-11-06 14:49] LABS: International Normalized Ratio 1.2; Prothrombin Time (Protime)PT. 15.4 SECONDS (11.7-14.9)
== END | disposition home or self-care (01) ==
LOC: PAVLAB 14:16
PROVIDERS: PCP Internal Medicine; Referring Provider Physician Assistant Medical; Visit Provider Physician Assistant Medical
DX: I48.0 Paroxysmal atrial fibrillation (principal); Z79.01 Long term (current) use of anticoagulants
CPT/HCPCS: 36415; 85610

== ENCOUNTER 2022-11-28 09:30 | Outpatient (RCR) | payer MEDICARE, OTHER, SELFPAY ==
[2022-11-12 00:18] VITALS: BP 145/70; PULSE 84; RESP 16; TEMP 35.5; BMI 26.3
[2022-11-14 09:43] VITALS: BP 157/79; PULSE 89; RESP 20; TEMP 36.3; BMI 26.3
--- NOTE | 2022-11-14 10:00 | PN.PCM_ITS ---
History of Present Illness Date of Service: 11/14/22 Chief Complaint: Right lower extremity wound History of Wound: Patient is an 87-year-old female with history of atherosclerotic disease, peripheral vascular disease, Raynaud's, hyperlipidemia who presented to Dr. Dang office with new wound to the posterior aspect of her right lower extremity secondary to shoe gear rubbing against the back of her leg. States that she was placed on an antibiotic and had been applying antibiotic ointment to the wound. She was seen by me in office last week for her debridement of nails. She stated that she would be seen in the wound care center next week and thus I have not started treatment of the right lower extremity wound performing debridement of the wound in office. She states wound has been present for only a few weeks without improvement prior to seeking care. Subjective Subjective This is an 87-year-old female who presents to the wound care center for follow- up of a right lower extremity wound.? She has been changing the outer dressings to the site daily.? She states she is continuing to offload lateral leg with padding and pillow during sleep. She denies constitutional symptoms today.? She has no further complaints today. Objective Data Objective Data Vital Signs: Vital Signs Temp Pulse Resp BP 97.3 F L 89 20 H 157/79 H 11/14/22 09:43 11/14/22 09:43 11/14/22 09:43 11/14/22 09:43 Weight: 76.204 kg Body Mass Index (BMI) 26.3 Physical Exam Const alert, oriented x3, no apparent distress and well nourished General Appearance: cooperative HEENT normocephalic Neck General: normal visual inspection Lymph Lymphatic: no lymphadenopathy noted and no lymphedema noted Resp normal respiratory effort Cardio regular rate and regular rhythm Extremity normal capillary refill, no joint enlargement, no calf tenderness and no pedal edema Extremity Narrative: DP and PT pulses weakly palpable.? CFT < 5 seconds and adequate to the digits.? There is bilateral lower extremity edema +2 pitting with purplish discoloration of the entire lower extremity secondary to her peripheral vascular disease and Raynaud's.? Wound to posterior leg has healed. Wound to lateral malleolus with fibrogranular base and no signs of infection. Skin no rashes or lesions noted, skin turgor normal and no jaundice Wound Narrative: There is a wound noted to the posterior aspect of the right lower extremity at the distal aspect of the Achilles tendon secondary to shoe heel cup rubbing the back of her lower extremity.? Wound remains healed. No signs of infection. Ulceration noted to the right lateral lower extremity demonstrates mixed fi brogranular layer.? No purulent drainage, no malodor, no palpable fluctuance/bogginess, no visible abscess noted. Neuro moves all extremities Debridement Note Debridement Note Wound debrided: Right lateral ankle Laterality: Right Wound Grade/Stage: Mustafa stage I Type of Debridement: Excisional debridement Anesthesia Used: 5% Lidocaine Gel Depth: Down to and including healthy tissue and in the subcutaneous layer Percentage of wound debrided: 100 Instrument Used: 3mm curette Tissue Removed: Fibrous, devitalized subcutaneous, biofilm, slough Severity: Fat Layer Exposed Amount of bleeding with debridement: Mild Bleeding Controlled with: Compression and gauze Patient tolerated procedure: Patient tolerated procedure well Post-Debridement Measurements and Additional Note: Post-Debridement Measurements/Treatment JO - Nurse 1 - General Ulcer Assessment Start: 11/14/22 09:42 Freq: Status: Active Protocol: ARNOLDO Activity Type Activity Date Activity User E-sign Co-sign Detail Recorded Client Recorded Date Recorded By Document 11/14/22 09:43 DL [id number] 11/14/22 09:48 DL 11/14/22 09:43 - Today's Visit Information Type of service Follow-up Visit (Physician/CERTIFIED ADAPTED PHYSICAL EDUCATOR ) Arrival Mode Ambulatory,Cane Transfer Assistance None Patient Identification Verified (Name & Yes ) Height and Weight Body Mass Index (BMI) 26.3 BMI Classification Overweight Vital Signs Temperature (97.8 F-99.1 F) 97.3 F L Temperature Source Temporal Pulse Rate (60-100) 89 Pulse Location Monitor Respiratory Rate (12-18) 20 H Respiratory rate source Observation Blood Pressure (90/60-120/80) 157/79 H Blood Pressure Mean (mm Hg) 105 Source Monitor History Since Last Visit- (Skip if this is Patient's initial visit) Have you changed medications since your No last visit? Any new allergies or adverse reactions No Had a fall/change in ADL's that may No increase risk of falls Signs or symptoms of abuse and/or No neglect since last visit Has dressing in place as prescribed Yes Has compression in place as prescribed N/A Has offloadiing in place as prescribed N/A Experienced any changes in pain level or No management Left Footwear Regular Shoe Right Footwear Regular Shoe Pain Scale: 0-10 Numeric Is Patient Pain Free? Yes WC - Nurse 1 - General Ulcer Measurement Start: 11/14/22 09:42 Freq: Status: Active Protocol: Activity Type Activity Date Activity User E-sign Co-sign Detail Recorded Client Recorded Date Recorded By Document 11/14/22 09:43 DL [id number] 11/14/22 09:48 DL 11/14/22 09:43 Wound Center Nurse 1 #3 R Lat LE -Current Size (cm) - Length 0.5 -Current Size (cm) - Width 0.5 -Current Size (cm) - Depth 0.2 -Total Square Cm 0.25 -Exudate Amt Small -Exudate Type Serosanguineous -Wound Margin Distinct, Outline Attached -Granulation Amt Small (1-33%) -Granulation Quality [place] -Necrosis Amt Small (1-33%) -Necrotic Tissue Type Adherent Slough -Structure Exposed N/A -Texture (Chitra-wound Skin Appearance) Scarring,Rash -Moisture (Chitra-wound Skin Appearance) Dry/Scaly -Color (Chitra-wound Skin Appearance) Hemosiderin Staining -Temperature (Chitra-wound Skin No Abnormality Appearance) (Pt Warm) -Tenderness on Palpation (Chitra-wound No Skin Appearance) -Ulcer Cleansing Rinsed/ Irrigated with Saline -Foul Odor after Cleansing No -Anesthetic Used 5% Lidocaine Gel Right Calf (cm) 32 Right Ankle (cm) 22.5 Assessment/Plan Assessment/Plan (1) Non-pressure chronic ulcer of right calf with fat layer exposed: CODE(S): L97.212 - Non-pressure chronic ulcer of right calf with fat layer exposed (2) Raynaud disease: CODE(S): I73.00 - Raynaud's syndrome without gangrene (3) Bilateral lower extremity edema: CODE(S): R60.0 - Localized edema (4) HLD (hyperlipidemia): CODE(S): E78.5 - Hyperlipidemia, unspecified QUALIFIERS: Hyperlipidemia type: pure hypercholesterolemia Qualified Code(s): E78.00 - Pure hypercholesterolemia, unspecified; E78.0 - Pure hypercholesterolemia (5) Essential (primary) hypertension: CODE(S): I10 - Essential (primary) hypertension (6) Chronic diastolic (congestive) heart failure: CODE(S): I50.32 - Chronic diastolic (congestive) heart failure PLAN: Plan Patient seen and evaluated Ulceration to the right lateral ankle underwent debridement as noted in clinical panel above.? Ulceration measures 0.5 cm x 0.4 cm x 0.1 cm.? Ulceration demonstrates no signs of infection.? Ulceration was dressed with Fibrocol, Hydrogel and dry sterile dressing. Tubigrip stocking applied to lower extremity.? She is to change this dressing daily.? Offloading padding applied about the ankle as patient is a side sleeper.? Also recommended continued use placing pillow under ankle for additional offloading. This ulcerative site demonstrates increase in size versus previous visit. Ulceration noted to the posterior aspect of the right lower extremity overlying the distal aspect of the Achilles tendon remains healed.? States ulceration is related to shoe gear irritation.? Site demonstrates no signs of infection.? Discussed continued use of Tubigrip compression and elevation of lower extremities at all times of rest to aid in edema control. I discussed the signs and symptoms of infection with her today.? She was instructed that if she gets any increasing redness about the wound margins extending up the back of her leg, any purulent drainage from the wound site, increasing foul odor, or if she experiences any fever greater than 101 degree, nausea, vomiting, or chills that these are signs of a progressing infection and she needs to report to the ED.? She voices understanding of this today. The following work up and care recommendations were made: Dressing: Fibrocol, Hydrogel and dry sterile dressing. Tubigrip compression stocking. Wash: Soap and water Tissue growth optimization: Fibrocol, Hydrogel Offload: Ensure the back of the leg is not in direct contact with chair/recliner and remains padded by pillows offloading at all times of rest Vascular: Patient does have adequate DP and PT pulse pulses.? Capillary fill time is adequate to the digits Edema: Continued elevation of the lower extremities at times of rest and Tubigrip compression stocking Infection: No signs of infection Pain: May take [id number] Tylenol extra strength for pain Host factors: Advanced age, edema, Raynaud's/vascular disease ? I answered all the patient's questions.? To return to the wound healing center in 2 weeks or call sooner if the patient has any questions or concerns.
[2022-11-28 09:23] VITALS: BP 178/82; PULSE 72; RESP 18; TEMP 36; BMI 26.3
--- NOTE | 2022-11-28 10:05 | PCM.WC.PN ---
History of Present Illness Date of Service: 11/28/22 Chief Complaint: Right lower extremity wound History of Wound: Patient is an 87-year-old female with history of atherosclerotic disease, peripheral vascular disease, Raynaud's, hyperlipidemia who presented to Dr. Dang office with new wound to the posterior aspect of her right lower extremity secondary to shoe gear rubbing against the back of her leg. States that she was placed on an antibiotic and had been applying antibiotic ointment to the wound. She was seen by me in office last week for her debridement of nails. She stated that she would be seen in the wound care center next week and thus I have not started treatment of the right lower extremity wound performing debridement of the wound in office. She states wound has been present for only a few weeks without improvement prior to seeking care. Subjective Subjective This is an 87-year-old female who presents to the wound care center for follow-up of a right lower extremity wound.? She has been changing the outer dressings to the site daily.? She states she is continuing to offload lateral leg with padding and pillow during sleep and believes the wound has healed. She denies constitutional symptoms today.? She has no further complaints today. Objective Data Objective Data Vital Signs: Vital Signs Temp Pulse Resp BP O2 Del Method 96.8 F L 72 18 178/82 H Room Air 11/28/22 09:23 11/28/22 09:23 11/28/22 09:23 11/28/22 09:23 11/28/22 09:23 Oxygen Delivery Method Room Air Weight: 76.204 kg Body Mass Index (BMI) 26.3 Physical Exam Const alert, oriented x3, no apparent distress and well nourished General Appearance: cooperative HEENT normocephalic Neck General: normal visual inspection Lymph Lymphatic: no lymphadenopathy noted and no lymphedema noted Resp normal respiratory effort Cardio regular rate and regular rhythm Extremity normal capillary refill, no joint enlargement, no calf tenderness and no pedal edema Extremity Narrative: DP and PT pulses weakly palpable.? CFT < 5 seconds and adequate to the digits.? There is bilateral lower extremity edema +2 pitting with purplish discoloration of the entire lower extremity secondary to her peripheral vascular disease and Raynaud's.? Wound to posterior leg remains healed. Wound to lateral malleolus healed. no signs of infection. Skin no rashes or lesions noted, skin turgor normal and no jaundice Wound Narrative: There is a wound noted to the posterior aspect of the right lower extremity at the distal aspect of the Achilles tendon secondary to shoe heel cup rubbing the back of her lower extremity.? Wound remains healed. No signs of infection. Ulceration noted to the right lateral lower extremity has healed. No signs of infection. Neuro moves all extremities Debridement Note Debridement Note No debridement was completed: No debridement was completed today Post-Debridement Measurements and Additional Note: Post-Debridement Measurements/Treatment - Nurse 1 - General Ulcer Assessment Start: 11/14/22 09:42 Freq: Status: Active Protocol: JO.[email or web address] Activity Type Activity Date Activity User E-sign Co-sign Detail Recorded Client Recorded Date Recorded By Document 11/14/22 09:43 DL [id number] 11/14/22 09:48 DL Document 11/28/22 09:23 KW [id number] 11/28/22 09:31 KW 11/14/22 11/28/22 09:43 09:23 - Today's Visit Information Type of service Follow-up Visit Follow-up Visit (Physician/DAIRY PRODUCTS MAKER (Physician/DAIRY PRODUCTS MAKER ) ) Arrival Mode Ambulatory,Cane Ambulatory,Cane Transfer Assistance None Patient Identification Verified (Name & Yes Yes ) Height and Weight Body Mass Index (BMI) 26.3 26.3 BMI Classification Overweight Overweight Vital Signs Temperature (97.8 F-99.1 F) 97.3 F L 96.8 F L Temperature Source Temporal Temporal Pulse Rate (60-100) 89 72 Pulse Location Monitor Monitor Respiratory Rate (12-18) 20 H 18 Respiratory rate source Observation Observation Oxygen Delivery Method Room Air Blood Pressure (90/60-120/80) 157/79 H 178/82 H Blood Pressure Mean (mm Hg) 105 114 Source Monitor Monitor Position Sitting Blood Pressure Location Left Arm History Since Last Visit- (Skip if this is Patient's initial visit) Have you changed medications since your No No last visit? Any new allergies or adverse reactions No No Had a fall/change in ADL's that may No No increase risk of falls Signs or symptoms of abuse and/or No No neglect since last visit Have you been in the hospital since your No last visit? Has dressing in place as prescribed Yes Has compression in place as prescribed N/A Has offloadiing in place as prescribed N/A Experienced any changes in pain level or No management Left Footwear Regular Shoe Regular Shoe Right Footwear Regular Shoe Regular Shoe Pain Scale: 0-10 Numeric Is Patient Pain Free? Yes Yes JO - Nurse 1 - General Ulcer Measurement Start: 11/14/22 09:42 Freq: Status: Active Protocol: Activity Type Activity Date Activity User E-sign Co-sign Detail Recorded Client Recorded Date Recorded By Document 11/14/22 09:43 DL [id number] 11/14/22 09:48 DL Document 11/28/22 09:23 KW [id number] 11/28/22 09:31 KW 11/14/22 11/28/22 09:43 09:23 Wound Center Nurse 1 #3 R Lat LE -Current Size (cm) - Length 0.5 0.4 -Current Size (cm) - Width 0.5 0.3 -Current Size (cm) - Depth 0.2 0.2 -Total Square Cm 0.25 0.12 -Photo Taken No -Exudate Amt Small Small -Exudate Type Serosanguineous Serosanguineous -Wound Margin Distinct, Distinct, Outline Outline Attached Attached -Granulation Amt Small (1-33%) Small (1-33%) -Granulation Quality [place] -Necrosis Amt Small (1-33%) Small (1-33%) -Necrotic Tissue Type Adherent Slough Adherent Slough -Structure Exposed N/A -Texture (Chitra-wound Skin Appearance) Scarring,Rash Assessed -Moisture (Chitra-wound Skin Appearance) Dry/Scaly Assessed -Color (Chitra-wound Skin Appearance) Hemosiderin Assessed Staining -Temperature (Chitra-wound Skin No Abnormality No Abnormality Appearance) (Pt Warm) (Pt Warm) -Tenderness on Palpation (Chitra-wound No Skin Appearance) -Ulcer Cleansing Rinsed/ Rinsed/ Irrigated with Irrigated with Saline Saline -Foul Odor after Cleansing No -Anesthetic Used 5% Lidocaine 5% Lidocaine Gel Gel Right Calf (cm) 32 32.1 Right Ankle (cm) 22.5 21.8 JO - Nurse 2 - General Ulcer CM Notes Start: 11/14/22 09:42 Freq: Status: Active Protocol: Activity Type Activity Date Activity User E-sign Co-sign Detail Recorded Client Recorded Date Recorded By Document 11/14/22 14:31 PL [id number] 11/14/22 14:32 PL 11/14/22 14:31 Wound Center Nurse 2 #3 R Lat LE -Time 10:04 -Correct Patient Yes -Correct Side, Site, Position Yes -Correct Procedure Yes -Procedure Performed Yes -Type of Procedure Debridement -Clinical Debridement Subcutaneous -Tissue Removed Subcutaneous -Post Debridement (cm) - Length 0.5 -Post Debridement (cm) - Width 0.4 -Post Debridement (cm) - Depth 0.1 -Total Square (Post) (cm) 0.20 -Area of Debridement (cm) - Length 0.5 -Area of Debridement (cm) - Width 0.4 -Total Square (Area) (cm) 0.20 -Tunneling No -Undermining/Tunneling No -Circular Undermining No -Wound/Ulcer Outcome Not Healed -Ulcer Cleansing Rinsed/ Irrigated with Saline -Foul Odor after Cleansing No -Bioengineered Tissue No -Bleeding Controlled with Pressure -Treatment Response Procedure Tolerated Well -Debridement - Subq, 1st 20sq cm Yes Pain Scale: 0-10 Numeric Is Patient Pain Free? Yes - Nurse 3 - General Ulcer D/C NN Start: 11/14/22 09:42 Freq: Status: Active Protocol: Activity Type Activity Date Activity User E-sign Co-sign Detail Recorded Client Recorded Date Recorded By Document 11/14/22 10:12 DL [id number] 11/14/22 10:13 DL Edit Result 11/14/22 10:12 DL (1) [id number] 11/14/22 10:26 DL (1) #3 R Lat LE - Ulcer Cleansing Not Cleansed => Rinsed/Irrigated => with Saline - Primary Dressing Applied => Fibracol Plus 4x4 - Other Dressing Epifix => Hydrogel - Other Covering => appeturepad - Fibracol Plus 4x4 => 1 Right - Size of Tubigrip Used Size E => Size D - Size D ($) => 1 - Size E ($) 1 => 11/14/22 10:12 Wound Care Center Nurse 3 #3 R Lat LE -Ulcer Cleansing Rinsed/ Irrigated with Saline -Primary Dressing Applied Fibracol Plus 4x4 -Other Dressing Hydrogel -Primary Dressing Covered/Secured with Dry Gauze & Roll Gauze, Secured with Tape -Other Covering appeturepad -Fibracol Plus 4x4 1 Right -Tubular Bandage Single Layer -Size of Tubigrip Used Size D -Size D ($) 1 Treatment Response Procedure Tolerated Well Pain Scale: 0-10 Numeric Is Patient Pain Free? Yes WC - Visit Discharge Discharge Condition Stable Ambulatory Status Ambulatory, Walker Transportation Private Auto Assessment/Plan Assessment/Plan (1) Non-pressure chronic ulcer of right calf with fat layer exposed: CODE(S): L97.212 - Non-pressure chronic ulcer of right calf with fat layer exposed (2) Raynaud disease: CODE(S): I73.00 - Raynaud's syndrome without gangrene (3) Bilateral lower extremity edema: CODE(S): R60.0 - Localized edema (4) HLD (hyperlipidemia): CODE(S): E78.5 - Hyperlipidemia, unspecified QUALIFIERS: Hyperlipidemia type: pure hypercholesterolemia Qualified Code(s): E78.00 - Pure hypercholesterolemia, unspecified; E78.0 - Pure hypercholesterolemia (5) Essential (primary) hypertension: CODE(S): I10 - Essential (primary) hypertension (6) Chronic diastolic (congestive) heart failure: CODE(S): I50.32 - Chronic diastolic (congestive) heart failure PLAN: Plan Patient seen and evaluated Ulceration to the right lateral ankle has healed. Bandaid applied to site and she is instructed to continue application for next 7 to 10 days for protection of underlying sensitive skin. Tubigrip stocking applied to lower extremity.? Recommended continued use placing pillow under ankle for additional offloading. Ulceration noted to the posterior aspect of the right lower extremity overlying the distal aspect of the Achilles tendon remains healed.? States ulceration was related to shoe gear irritation.? All ulcerations have healed. No signs of infection. Discussed continued use of Tubigrip compression and elevation of lower extremities at all times of rest to aid in edema control. The following work up and care recommendations were made: Dressing: Band-Aid next 7 to 10 days to protect fragile skin. Tubigrip compression stocking. Wash: Soap and water Tissue growth optimization: None Offload: Ensure the back of the leg is not in direct contact with chair/recliner and remains padded by pillows offloading at all times of rest Vascular: Patient does have adequate DP and PT pulse pulses.? Capillary fill time is adequate to the digits Edema: Continued elevation of the lower extremities at times of rest and Tubigrip compression stocking Infection: No signs of infection Pain: May take [id number] Tylenol extra strength for pain Host factors: Advanced age, edema, Raynaud's/vascular disease ? Due to patient's healed status she is being discharged from the wound care center today. I answered all the patient's questions.? To return to the wound healing center as needed or call sooner if the patient has any questions or concerns.
== END 2022-11-28 15:56 | disposition home or self-care (01) ==
LOC: WC 09:30
PROVIDERS: PCP Internal Medicine; Referring Provider Internal Medicine; Visit Provider Student in an Organized Health Care Education/Training Program
DX: I73.00 Raynaud's syndrome without gangrene (principal); L97.212 Non-pressure chronic ulcer of right calf with fat layer exposed; I11.0 Hypertensive heart disease with heart failure; I50.32 Chronic diastolic (congestive) heart failure; E78.00 Pure hypercholesterolemia, unspecified; R60.0 Localized edema
CPT/HCPCS: 11042; 99213; G0463

== ENCOUNTER 2022-12-12 11:14 | Outpatient (RCR) | payer MEDICARE, OTHER, SELFPAY ==
[2022-11-14 10:18] LABS: International Normalized Ratio 1.2; Prothrombin Time (Protime)PT. 15.1 SECONDS (11.7-14.9)
[2022-11-26 10:56] LABS: International Normalized Ratio 1.3; Prothrombin Time (Protime)PT. 16.1 SECONDS (11.7-14.9)
[2022-12-05 17:48] LABS: International Normalized Ratio 1.2; Prothrombin Time (Protime)PT. 15.6 SECONDS (11.7-14.9)
--- NOTE | 2022-12-12 11:30 | RAD_ITS ---
STUDY: X-RAY - CERVICAL SPINE REASON FOR EXAM: Female, 87 years old. Neck pain and stiffness TECHNIQUE: 5 view(s) of the cervical spine were obtained. COMPARISON: None FINDINGS: Normal anterior atlantoaxial articulation. Normal odontoid process. There is straightening of the normal cervical lordosis. There is diffuse demineralization of the cervical spine. There is multi-level degenerative disc disease with multilevel disc space narrowing. There is multi-level osseous foraminal stenosis. The soft tissue structures are unremarkable. RAD/Cerv Spine 4 or 5 Views IMPRESSION: Multilevel degenerative changes, no acute findings Electronically Signed: Milan Ordoñez MD at 16:28 EDT ,
--- NOTE | 2022-12-12 11:30 | RAD_ITS ---
STUDY: X-RAY - LEFT SHOULDER REASON FOR EXAM: Female, 87 years old. Pain and stiffness TECHNIQUE: 4 view(s) of the shoulder. COMPARISON: 12/19/2020 FINDINGS: There is mild degenerative arthrosis of the glenohumeral articulation. There is degenerative arthrosis of the acromioclavicular joint without inferior osseous spur formation. Normal acromion. Normal humeral head and visualized proximal humerus. The soft tissue structures are unremarkable. Normal visualized pulmonary apex. RAD/Shoulder min 2 Views IMPRESSION: Glenohumeral and AC joint arthrosis, mild progression since the previous study. No acute findings Electronically Signed: Milan Ordoñez MD at 16:29 EDT ,
[2022-12-12 15:29] LABS: International Normalized Ratio 1.7; Prothrombin Time (Protime)PT. 19.9 SECONDS (11.7-14.9)
== END 2022-12-12 18:00 | disposition home or self-care (01) ==
LOC: MTLAB 11:14
PROVIDERS: PCP Internal Medicine; Referring Provider Physician Assistant Medical; Visit Provider Physician Assistant Medical
DX: M47.812 Spondylosis without myelopathy or radiculopathy, cervical region (principal); M50.30 Other cervical disc degeneration, unspecified cervical region; M25.512 Pain in left shoulder; I48.0 Paroxysmal atrial fibrillation; Z79.01 Long term (current) use of anticoagulants; I48.92 Unspecified atrial flutter
CPT/HCPCS: 36415; 72050; 73030; 85610

== ENCOUNTER → 2022-12-23 | Outpatient (CLI) | payer MEDICARE, OTHER, SELFPAY ==
[2022-12-23 19:40] LABS: Xtra Tube EP Lab EXTRA TUBE
[2022-12-25 04:07] LABS: Immunoglobulin G 541 mg/dL (586-1602)
== END | disposition home or self-care (01) ==
LOC: MTLAB 11:27
PROVIDERS: PCP Internal Medicine; Referring Provider Nurse Practitioner Family; Visit Provider Nurse Practitioner Family
DX: D80.1 Nonfamilial hypogammaglobulinemia (principal)
CPT/HCPCS: 36415; 82784

== ENCOUNTER 2022-12-30 11:42 | Outpatient (RCR) | payer MEDICARE, OTHER, SELFPAY ==
[2022-12-19 15:48] LABS: International Normalized Ratio 1.4; Prothrombin Time (Protime)PT. 17.2 SECONDS (11.7-14.9)
[2022-12-30 15:32] LABS: International Normalized Ratio 3.1
== END 2022-12-30 18:00 | disposition home or self-care (01) ==
LOC: MTLAB 11:42
PROVIDERS: PCP Internal Medicine; Referring Provider Physician Assistant Medical; Visit Provider Physician Assistant Medical
DX: I48.0 Paroxysmal atrial fibrillation (principal); I48.92 Unspecified atrial flutter; Z79.01 Long term (current) use of anticoagulants
CPT/HCPCS: 36415; 85610

== ENCOUNTER 2023-01-03 04:13 | Observation (INO) | payer MEDICARE, OTHER, SELFPAY ==
[2023-01-03] VITALS (11 sets, daily range): BP systolic 130–177; BP diastolic 55–67; PULSE 60–81; RESP 16–30; TEMP 36.4–36.8; O2SAT 92–100; BMI 28.7; BMI 24.7
--- NOTE | 2023-01-03 04:30 | EKG12_ITS ---
Test Reason : SOB Blood Pressure : / mmHG Vent. Rate : 060 BPM Atrial Rate : 060 BPM P-R Int : 000 ms QRS Dur : 184 ms QT Int : 502 ms P-R-T Axes : 000 -62 113 degrees QTc Int : 502 ms Ventricular-paced rhythm Abnormal ECG Confirmed by IRAIDA DUMONT, GREGORIA ([id number]), brands editor JES BURROUGHS ([id number]) on 01/07/2023 11:36:56 AM Referred By: Confirmed By:HANY KHOURY MD
--- NOTE | 2023-01-03 04:32 | EDS_ITS ---
HPI History of Present Illness Chief Complaint: Shortness of Breath Narrative Narrative: 87-year-old female past medical history of atrial fibrillation, CHF, on Coumadin, presents with sudden onset of shortness of breath and dry cough. She states that yesterday everything was fine when she went to bed around 9 PM. She woke up a few hours ago, and became very short of breath. She does not wear oxygen at home. She denies any leg swelling that has increased, or other symptoms. No fevers or chills, just states it is hard for her to breathe. PFSH [facility] Medical History Abnormal urine finding Atherosclerosis of coronary artery bypass graft without angina pectoris Atherosclerotic heart disease of [place] coronary artery without angina pectoris Bronchitis Chronic diastolic (congestive) heart failure Chronic lymphoid leukemia Complete heart block COVID-19 DM (diabetes mellitus), type 2 with peripheral vascular complications Essential (primary) hypertension Gout HLD (hyperlipidemia) Hypogammaglobulinemia, acquired Left bundle branch block (LBBB) Macular degeneration Mitral valve annular calcification Nonrheumatic mitral (valve) insufficiency Nonsustained ventricular tachycardia Obstructive hypertrophic cardiomyopathy Other specified transient cerebral ischemias Peripheral edema Proteinuria Skin tear of left upper extremity Uncontrolled hypertension URI (upper respiratory infection) Urinary frequency Home Medications cholecalciferol (vitamin D3) 125 mcg (5,000 unit) capsule 1 tab PO DAILY 05/18/15 [History Last Taken Unknown] duloxetine 60 mg capsule,delayed release 60 mg PO QHS 04/11/16 [History Last Taken Unknown] gabapentin 300 mg capsule 300 mg PO BID 10/28/16 [History Last Taken 12/21/21] simvastatin 40 mg tablet 40 mg PO QHS 10/28/16 [History Last Taken Unknown] arginine (L-arginine) 500 mg tablet 3,000 mg PO BID 10/29/17 [History Last Taken Unknown] cyanocobalamin (vitamin B-12) 500 mcg tablet 1,000 mcg PO QWEEK 11/26/17 [History Last Taken Unknown] levothyroxine 50 mcg tablet 50 mcg PO DAILY 12/24/17 [History Last Taken 12/21/21] vit C 250 mg-vit E 90 mg-zinc 40 mg-copper 1 rj-ztqxbo-lilcnp capsule (PreserVision AREDS-2) 1 tab PO BID 01/24/21 [History Last Taken Unknown] acyclovir 800 mg tablet 800 mg PO BID 05/16/21 [History Last Taken Unknown] furosemide 20 mg tablet (Lasix) 40 mg (2 x 20 mg) PO BID #180 tabs 12/03/21 [Rx Last Taken Unknown] metoprolol tartrate 50 mg tablet 50 mg PO BID #1 TAB 10/22/22 [Rx Last Taken Unknown] duloxetine 30 mg capsule,delayed release 30 mg PO DAILY 11/01/22 [History Last Taken Unknown] vitamins A,C,Z-npti-kcmzmv 4,296 mcg-226 mg-90 mg capsule (PreserVision AREDS) 1 cap PO BID 11/01/22 [History Last Taken Unknown] warfarin 2 mg tablet 2 mg PO .COMPLEX 01/03/23 [History Last Taken 01/02/23] Allergy/AdvReac Type Severity Reaction Status Date / Time amoxicillin trihydrate AdvReac Severe Vomiting Verified 01/03/23 04:19 [From Augmentin] lidocaine AdvReac Severe Other Verified 01/03/23 04:19 Penicillins AdvReac Severe Vomiting Verified 01/03/23 04:19 potassium clavulanate AdvReac Severe Vomiting Verified 01/03/23 04:19 [From Augmentin] Family History Father , age 86 CAD (coronary artery disease) Sister Asthma Surgical History H/O coronary artery bypass surgery (01/15/11) History of appendectomy History of cholecystectomy History of coronary artery stent placement (06/17/11) History of electrophysiologic study (01/21/11) History of hysterectomy History of mitral valve repair (01/15/11) History of tonsillectomy nerve ablation for pain management Presence of permanent cardiac pacemaker (12/21/21) Social History Smoking Status: Never smoker alcohol intake: never substance use type: does not use caffeine: Yes Type: coffee Number of servings: 2 what type of physical activity do you participate in: walking and weight training frequency: 5-6 times per week ROS ROS ED ROS Narrative Constitutional: No fever, no chills. HEENT: No sore throat. No neck pain. No loss of vision. No rhinorrhea. Cardiovascular: No chest pain. No palpitations. No pedal edema. Respiratory: Dry cough, positive shortness of breath. Abdominal: No abdominal pain. No nausea. No vomiting. Genitourinary: No dysuria. No hematuria. Musculoskeletal: No myalgias. No arthralgias. Neurologic: No headaches. No dizziness. No lightheadedness. Skin: No rash. No change in color. Psychiatric: No depression. No anxiety. EXAM Physical Exam Narrative Exam Narrative: Afebrile. Vital signs noted. HEENT: Normocephalic. Atraumatic. PERRL, EOMI. Neck soft and supple. No point tenderness or step off. Cardiovascular: Regular rate and rhythm. No murmurs, rubs, or gallops appreciated. Respiratory: No tachypnea. Bibasilar rales left greater than right with occasional expiratory wheeze. Gastrointestinal: Abdomen soft, nontender, with normoactive bowel sounds. No rebound or guarding. Neurological: Awake. Alert. Nonfocal, nonlateralizing. Skin: No rash. Normal color. No pallor. Musculoskeletal: Trace bilateral pedal edema. Full range of motion extremities. Const Vital Signs: 01/03/23 04:15 01/03/23 04:41 01/03/23 04:42 Temperature 97.7 F L Temperature Source Oral Pulse Rate 76 60 Respiratory Rate 30 H 18 Blood Pressure 177/67 H Blood Pressure Mean 103 Pulse Ox 92 Oxygen Delivery Method Nasal Cannula Oxygen Flow Rate (L/min) 2 MDM MDM MDM Narrative Medical decision making narrative: In the differential diagnosis is CHF exacerbation versus COPD, versus pneumonia including COVID or influenza. Her pulse ox on arrival was 92% and she was placed on nasal cannula oxygen for comfort. She does have elevated blood pressure of 177/67. I reviewed her prior records, and I had seen her in the past personally when she came to the emergency department with reported elevated D-dimer. She will be given a neb aerosolized treatment to see if this improves her wheezing, but she may require Lasix if this is a CHF exacerbation. Chest x- ray in 1 view will be obtained along with basic laboratory work and EKG. EKG was obtained and interpreted by myself independently as ventricular paced rhythm at 60 bpm without other ectopy or acute ST changes. No STEMI. I interpreted her chest x-ray in 1 view independently and see bibasilar atelectasis versus patchy infiltrates consistent with CHF. I reviewed the radiology report which confirms my independent interpretation. I reviewed all laboratory work and her prior labs. From today, she has a normal white count of 10.3, hemoglobin normal at 13.3, platelet count normal at 186. INR is therapeutic at 2.4. BMP shows sodium slightly low at 135 which I think is nonspecific potassium normal at 4.4, glucose is elevated at 187 but she has an anion gap low at 3. I do not have concern for diabetic ketoacidosis. Creatinine is slightly elevated at 1.37 with a BUN of 24. High-sensitivity troponin is 40, but it has been higher in the past at 60. BNP is the highest its been at 709. Repeat examination after DuoNeb aerosolized treatment shows patient to feel the same and still short of breath with mild tachypnea at rest. She will be administered Lasix 40 mg intravenously. I did review her previous ED visits and when she had a BNP in the 700s, she was administered Lasix and sent home to continue her Lasix 40 mg twice a day. However, she had borderline hypoxia at 92% on room air. She will be ambulated with a pulse ox on room air as well. After ambulating, she became tachypneic and felt short of breath and perhaps a little off balance. Her pulse ox started at 94% on room air and did not drop significantly, only the 93%. However, given her elevated BNP and tachypnea with dyspnea on exertion, I do feel that she merits observation. Patient will be discussed with the hospitalist. Disposition is assigned to observation in stable condition. History & Record Review Discussion w/independent historian: Patient Additional record(s) reviewed:: Prior ED visit and Prior labs Lab Data Attestation: I reviewed the patient's lab results. Labs: Laboratory Results - last 24 hr 01/03/23 04:30 WBC 10.3 RBC 4.44 Hgb 13.3 Hct 42.1 MCV 94.8 MCH 30.0 MCHC 31.6 L RDW Std Deviation 48.8 H RDW Coeff of Patrice 14.1 Plt Count 186 MPV 10.4 Immature Gran % (Auto) 0.600 Neut % (Auto) 77.2 H Lymph % (Auto) 12.2 L [place] % (Auto) 9.3 Eos % (Auto) 0.6 Baso % (Auto) 0.1 Absolute Neuts (auto) 8.0 H Absolute Lymphs (auto) 1.26 Nucleated RBC % 0 PT 26.3 H INR 2.4 Sodium 135 L Potassium 4.4 Chloride 106 Carbon Dioxide 26.0 Anion Gap 3 L BUN 24 H Creatinine 1.37 H Estim Creat Clear Calc 28.13 Est GFR (MDRD) Af Amer 47 L Est GFR (MDRD) Non-Af 39 L BUN/Creatinine Ratio 17.5 Glucose 187 H Calcium 8.5 Troponin I High Sens 40 B-Natriuretic Peptide 709.0 H Radiography Chest X-Ray - ED: 1 View and Read by ED Physician Diagnostic Testing: Clinical Impression(s) from Imaging Studies Chest X-Ray 01/03/23 04:50 IMPRESSION: Under expansion lungs. Could consider lower lobe atelectasis and/or infiltrates. Status post sternotomy. Pacemaker. Electronically Signed: Rosamaria Hurley MD at 5:29 EDT , Management Discussion w/another healthcare provider: Hospitalist (Dr. Simms) Discharge Plan Dx/Rx/DC Orders Clinical Impression: Acute exacerbation of congestive heart failure, Presence of permanent cardiac pacemaker, NICOLAS (dyspnea on exertion), Tachypnea Disposition Disposition: Acute Care [facility]
[2023-01-03] MEDS: Ipratropium/Albuterol Sulfate 3 ML AMPUL.NEB INHALATION (04:41)
[2023-01-03 04:43] LABS: Absolute Lymphocyte Count 1.26 X10^3/uL (0.83-4.51); Basophil# 0.01 X10^3/uL; Basophil% 0.1 % (0-1); Eosinophil# 0.06 X10^3/uL; Eosinophils% 0.6 % (0-5); Hematocrit 42.1 % (37-47); Hemoglobin 13.3 g/dL (12.0-15.0); Lymphocyte # 1.26 X10^3/ul (0.83-4.51); Lymphocyte % 12.2 % (19-41); Mean Corp Hgb Conc 31.6 g/dL (32-36); Mean Corpuscular Volume 94.8 fL (81-99); Mean Platelet Vol. 10.4 fl (6.2-12.0); Monocyte# 0.96 X10^3/uL; Monocyte% 9.3 % (0-10); NRBC Flagged by Analyzer 0 % (0-5); Neutrophil # 7.95 X10^3/uL (2.7-7.7); Neutrophil % 77.2 % (47-70); Platelet Count 186 K/mm3 (150-450); RBC Distribution Width CV 14.1 % (11.6-14.6); RBC Distribution Width SD 48.8 fl (35.1-43.9); Red Blood Count 4.44 M/mm3 (4.2-5.4); White Blood Count 10.3 K/mm3 (4.4-11.0)
--- NOTE | 2023-01-03 04:50 | RAD_ITS ---
STUDY: X-RAY CHEST REASON FOR EXAM: Female, 87 years old. Shortness of Breath TECHNIQUE: Single PA view of the chest. COMPARISON: None. FINDINGS: A left-sided pacer defibrillator. Hemidiaphragms are elevated. There is obscuration of the lung bases. Bilateral lung bases are obscured on this study. Sternal cerclage wires and vascular clips are present from a prior sternotomy and coronary artery bypass graft procedure (CABG). Normal mediastinum and miguel. Normal visualized pulmonary arteries. Normal visualized aortic arch and descending thoracic aorta. Normal visualized thoracic spine. Normal visualized ribs, clavicles, and shoulders. There is no demonstrated abnormality of the visualized soft tissue structures of the upper abdomen. RAD/Chest 1 View (Portable) IMPRESSION: Under expansion lungs. Could consider lower lobe atelectasis and/or infiltrates. Status post sternotomy. Pacemaker. Electronically Signed: Rosamaria Hurley MD at 5:29 EDT Reading Location ID and State: [facility] / [place] Tel , Service support ,
[2023-01-03 04:58] LABS: International Normalized Ratio 2.4; Prothrombin Time (Protime)PT. 26.3 SECONDS (11.7-14.9)
[2023-01-03 05:05] LABS: Anion Gap 3 (5-15); BUN 24 mg/dL (7-18); BUN/Creat Ratio 17.5 RATIO (10-20); Calcium,Total 8.5 mg/dL (8.5-10.1); Chloride 106 mmol/L (98-107); Creatinine, Serum 1.37 mg/dL (0.55-1.02); EST Glomerular Filtration Rate 39 mL/min (>60); Est Glom Filt Rate - Afr Amer 47 mL/min (>60); Estimated Creatinine Clearance 28.13 ml/min; Glucose 187 mg/dL (74-106); Potassium 4.4 mmol/L (3.5-5.1); Sodium Level 135 mmol/L (136-145); Troponin-I HS 40 pg/mL (3.0-54.0)
[2023-01-03] MEDS: Furosemide 40 MG/4 ML Vial IV ×3 (05:37→17:43)
--- NOTE | 2023-01-03 07:08 | PCM.HP.STD ---
HPI - General General Date of Admission: 01/03/23 Date of Service: 01/03/23 Chief Complaint: Dyspnea on exertion for about 1 month, acute shortness of breath last HPI Narrative BEVERLY GARCIA, is a 87 F with multiple cardiac comorbidities was brought to ED by EMS with shortness of breath that started about 9 PM yesterday. She also had dry cough. Denies chest pain or chest pressure or tightness or discomfort. She states she she gets shortness of breath on [id number] exertion for last few months like walking within the home or using stairs. She had to stop and then dyspnea goes away. She also has mild chronic leg swelling but has not changed recently. She has chronic rash on bilateral lower extremities for many years and has seen cigarette inspector. She is on warfarin for history of paroxysmal A-fib, history of CABG and pacemaker. In ED, lab work reviewed troponin normal. BNP elevated 709. EKG individually reviewed shows ventricular paced rhythm at 60 bpm. EMS EKG was also similar. [facility] Medical History Abnormal urine finding Atherosclerosis of coronary artery bypass graft without angina pectoris Atherosclerotic heart disease of [place] coronary artery without angina pectoris Bronchitis Chronic diastolic (congestive) heart failure Chronic lymphoid leukemia Complete heart block COVID-19 DM (diabetes mellitus), type 2 with peripheral vascular complications Essential (primary) hypertension Gout HLD (hyperlipidemia) Hypogammaglobulinemia, acquired Left bundle branch block (LBBB) Macular degeneration Mitral valve annular calcification Nonrheumatic mitral (valve) insufficiency Nonsustained ventricular tachycardia Obstructive hypertrophic cardiomyopathy Other specified transient cerebral ischemias Peripheral edema Proteinuria Skin tear of left upper extremity Uncontrolled hypertension URI (upper respiratory infection) Urinary frequency Home Medications cholecalciferol (vitamin D3) 125 mcg (5,000 unit) capsule 1 tab PO DAILY 05/18/15 [History Last Taken Unknown] duloxetine 60 mg capsule,delayed release 60 mg PO QHS 04/11/16 [History Last Taken Unknown] gabapentin 300 mg capsule 300 mg PO BID 10/28/16 [History Last Taken 12/21/21] simvastatin 40 mg tablet 40 mg PO QHS 10/28/16 [History Last Taken Unknown] arginine (L-arginine) 500 mg tablet 3,000 mg PO BID 10/29/17 [History Last Taken Unknown] cyanocobalamin (vitamin B-12) 500 mcg tablet 1,000 mcg PO QWEEK 11/26/17 [History Last Taken Unknown] levothyroxine 50 mcg tablet 50 mcg PO DAILY 12/24/17 [History Last Taken 12/21/21] vit C 250 mg-vit E 90 mg-zinc 40 mg-copper 1 mc-irvdwt-khnpth capsule (PreserVision AREDS-2) 1 tab PO BID 01/24/21 [History Last Taken Unknown] acyclovir 800 mg tablet 800 mg PO BID 05/16/21 [History Last Taken Unknown] furosemide 20 mg tablet (Lasix) 40 mg (2 x 20 mg) PO BID #180 tabs 12/03/21 [Rx Last Taken Unknown] metoprolol tartrate 50 mg tablet 50 mg PO BID #1 TAB 10/22/22 [Rx Last Taken Unknown] duloxetine 30 mg capsule,delayed release 30 mg PO DAILY 11/01/22 [History Last Taken Unknown] vitamins A,C,K-bplm-hxbjqm 4,296 mcg-226 mg-90 mg capsule (PreserVision AREDS) 1 cap PO BID 11/01/22 [History Last Taken Unknown] warfarin 2 mg tablet 2 mg PO .COMPLEX 01/03/23 [History Last Taken 01/02/23] Allergy/AdvReac Type Severity Reaction Status Date / Time amoxicillin trihydrate AdvReac Severe Vomiting Verified 01/03/23 04:19 [From Augmentin] lidocaine AdvReac Severe Other Verified 01/03/23 04:19 Penicillins AdvReac Severe Vomiting Verified 01/03/23 04:19 potassium clavulanate AdvReac Severe Vomiting Verified 01/03/23 04:19 [From Augmentin] Family History Father , age 86 CAD (coronary artery disease) Sister Asthma Surgical History H/O coronary artery bypass surgery (01/15/11) History of appendectomy History of cholecystectomy History of coronary artery stent placement (06/17/11) History of electrophysiologic study (01/21/11) History of hysterectomy History of mitral valve repair (01/15/11) History of tonsillectomy nerve ablation for pain management Presence of permanent cardiac pacemaker (12/21/21) Social History Smoking Status: Never smoker alcohol intake: never substance use type: does not use caffeine: Yes Type: coffee Number of servings: 2 what type of physical activity do you participate in: walking and weight training frequency: 5-6 times per week ROS ROS Narrative Constitutional: Reports fatigue and weakness. No fever. HEENT: Decreased hearing/hearing impairment. Reports systems reviewed and no addt'l complaints, except as documented Respiratory/Chest: As described in HPI CVS: No chest pain or discomfort. History of pacemaker. CABG in 2012. Chronic peripheral arterial disease Gastrointestinal: Denies coffee ground emesis, hematemesis or vomiting Genitourinary: Denies burning urination or new urinary tract symptoms Musculoskeletal: Denies acute joint pain or limited range of motion. No acute injury Neurologic: Denies seizure-like symptoms. No acute strokelike symptoms. skin: Right lower ankle wound healed. Follows podiatry. Chronic rash. Endocrinology: DM type II. Reports systems reviewed and no addt'l complaints, except as documented Hematologic/Lymphatic: Raynaud's disease. Reports systems reviewed and no addt'l complaints, except as documented Rest 14 ROS are negative except as mentioned in HPI Vital Signs Vital Signs Vital Signs: 01/03/23 04:15 01/03/23 04:41 01/03/23 04:42 Temperature 97.7 F L Temperature Source Oral Pulse Rate 76 60 Respiratory Rate 30 H 18 Blood Pressure 177/67 H Blood Pressure Mean 103 Pulse Ox 92 Oxygen Delivery Method Nasal Cannula Oxygen Flow Rate (L/min) 2 Weight Weight: 183 lb 7 oz Body Mass Index (BMI) 28.7 Physical Exam Narrative General: Alert, Oriented x3, Cooperative HEENT: Bilateral hearing impairment. Atraumatic, PERRLA, EOMI, Normocephalic Oral: Oral mucosa dry. No Gingival or Mucosal Lesions/ Ulcerations Neck: Supple, prominent JVD bilateral, Negative Carotid Bruits Lungs: Air entry diminished in bilateral lung bases. Dyspnea on sitting up/changing posture. No crepitation/rhonchi. Cardiovascular: Paced rhythm rhythm, Normal S1, Normal S2, systolic murmur over right second ICS and LLSB Abdomen: Bowel Sounds Present, Soft, Non Tender, Non-Distended : No renal angle tenderness. No suprapubic tenderness. Extremities: No edema, Capillary Refill Less than 3 Seconds Skin: No rashes, No breakdown Musculoskeletal: No Tenderness to Palpation of Joints or Extremities Neurological: Cranial nerves II-XII grossly intact, DTR 2+/4. No acute focal neurological deficit. Psych/Mental Status: Flat affect. Results Lab / Micro Data 01/03/23 04:30 01/03/23 04:30 Labs: Laboratory Results - last 24 hr 01/03/23 04:30: WBC 10.3, RBC 4.44, Hgb 13.3, Hct 42.1, MCV 94.8, MCH 30.0, MCHC 31.6 L, RDW Std Deviation 48.8 H, RDW Coeff of Patrice 14.1, Plt Count 186, MPV 10.4, Immature Gran % (Auto) 0.600, Neut % (Auto) 77.2 H, Lymph % (Auto) 12.2 L, [place] % (Auto) 9.3, Eos % (Auto) 0.6, Baso % (Auto) 0.1, Absolute Neuts (auto) 8.0 H, Absolute Lymphs (auto) 1.26, Nucleated RBC % 0, PT 26.3 H, INR 2.4, Sodium 135 L, Potassium 4.4, Chloride 106, Carbon Dioxide 26.0, Anion Gap 3 L, BUN 24 H, Creatinine 1.37 H, Estim Creat Clear Calc 28.13, Est GFR (MDRD) Af Amer 47 L, Est GFR (MDRD) Non-Af 39 L, BUN/Creatinine Ratio 17.5, Glucose 187 H, Calcium 8.5, Troponin I High Sens 40, B-Natriuretic Peptide 709.0 H Micro: Microbiology 01/03/23 04:32 Nasal Secretion SARS-CoV-2 & FLU Antigen (Rapid) - Final Radiology Impression Chest X-Ray 01/03/23 04:50 IMPRESSION: Under expansion lungs. Could consider lower lobe atelectasis and/or infiltrates. Status post sternotomy. Pacemaker. Electronically Signed: Rosamaria Hurley MD at 5:29 EDT , Assessment & Plan Assessment/Plan (1) Acute exacerbation of congestive heart failure: QUALIFIERS: Heart failure type: diastolic Qualified Code(s): I50.33 - Acute on chronic diastolic (congestive) heart failure PLAN: Plan This is a 87-year-old female patient is currently being admitted for evaluation of shortness of breath with 1 month history of progressive worsening of dyspnea on exertion. 1. Acute on chronic HFpEF/diastolic heart failure: Patient follows Dr. Irby. Patient is being admitted in PCU. Heart failure core measures including intake and output, fluid restriction less than 1500 mL, daily weight monitoring, kidney and electrolytes monitoring. Patient on 40 mg twice daily furosemide at home. Started on Lasix in ED and continue 40 mg IV twice daily. Chest x-ray initially reviewed shows under ventilation/hypoexpansion of lungs bilateral lower lobes atelectasis. Incentive spirometry. Rapid COVID and flu antigens are negative 2. 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 INR is therapeutic. Monitor INR daily. 3. CLL, chronic rash, history of hypoglobulinemia and thrombocytopenia, Raynaud's disease peripheral arterial disease: Patient follows in oncology clinic with Dr. 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 History of hypoglycemia with multiple infection and was on IVIG in 2011. Received 6 cycles of Gazyva in 2016. Cutaneous involvement of CLL. Currently platelet count is normal 1 86,000. 4. Patient has healed wound overRight ankle: Patient follows Dr. Mckeon last visit 11/28/2022 in the clinic. 5. Other comorbidities include history of herpes zoster with peripheral neuralgia, hypothyroidism on levothyroxine, gait instability/compromised equilibrium: PT and OT ordered. Home medication reconciliation done. Living will/advanced directive/end of life care: Patient does have living will or advanced directive. Patient's niece is power of disability attorney for health. After discussion of benefits/risks procedures involved with full code, DNR CC arrest and DNR CC with the patient and grandnephew, the patient opted for DNRCC arrest with no intubation. Patient doesn't want artificial life support including intubation, tube feed, ventilator and/chest compression, central venous catheter, vasopressor and DC shock if needed Total time spent in [id number] encounter in discussion of advanced directive 17 minutes. Microbiology Past 72 Hours 01/03/23 04:32 Nasal Secretion SARS-CoV-2 & FLU Antigen (Rapid) - Final Laboratory Results 01/03/23 04:30: WBC 10.3, RBC 4.44, Hgb 13.3, Hct 42.1, MCV 94.8, MCH 30.0, MCHC 31.6 L, RDW Std Deviation 48.8 H, RDW Coeff of Patrice 14.1, Plt Count 186, MPV 10.4, Immature Gran % (Auto) 0.600, Neut % (Auto) 77.2 H, Lymph % (Auto) 12.2 L, [place] % (Auto) 9.3, Eos % (Auto) 0.6, Baso % (Auto) 0.1, Absolute Neuts (auto) 8.0 H, Absolute Lymphs (auto) 1.26, Nucleated RBC % 0, PT 26.3 H, INR 2.4, Sodium 135 L, Potassium 4.4, Chloride 106, Carbon Dioxide 26.0, Anion Gap 3 L, BUN 24 H, Creatinine 1.37 H, Estim Creat Clear Calc 28.13, Est GFR (MDRD) Af Amer 47 L, Est GFR (MDRD) Non-Af 39 L, BUN/Creatinine Ratio 17.5, Glucose 187 H, Calcium 8.5, Troponin I High Sens 40, B-Natriuretic Peptide 709.0 H Clinical Impression(s) from Imaging Studies Chest X-Ray 01/03/23 04:50 IMPRESSION: Under expansion lungs. Could consider lower lobe atelectasis and/or infiltrates. Status post sternotomy. Pacemaker. Charges/Coding Visit Charges Inpatient E&M: 40452 Init Hosp L3 Procedures Hospitalists Procedures: 83967 Advncd Care Plan 30 Min
[2023-01-03 08:19] LABS: Magnesium 2.1 mg/dL (1.6-2.6)
--- NOTE | 2023-01-03 09:40 | ECHOD_ITS ---
Reason For Study: SOB, NICOLAS Procedure This was a 2D Doppler, Color Flow transthoracic echocardiogram. Exam performed portable in patient room. Left Ventricle Normal LV size. The estimated ejection fraction is 60 %. Unable to assess diastolic dysfunction. septal hypokinesis. Right Ventricle Normal RV size. There is a pacemaker lead in the right ventricle. Normal systolic function. Atria The left atrium is severely enlarged. Normal right atrium. ICD or pacer leads identified within the right atrium. No doppler evidence for ASD. Mitral Valve There is severe mitral annular calcification. There is no mitral valve stenosis. Mild (1+) mitral valve insufficiency. Tricuspid Valve There is no tricuspid stenosis. Trivial tricuspid valve insufficiency. Pulmonary artery systolic pressure is 40 mmHg. Aortic Valve Trisinus/trileaflet aortic valve. There is no aortic stenosis. Trivial aortic valve insufficiency. Pulmonic Valve There is no pulmonic valvular stenosis. No pulmonic valve insufficiency. Great Vessels Normal aortic root. Pericardium/Pleural No pericardial effusion. MMode/2D Measurements & Calculations LVIDd: 3.6 cm IVSd: 1.5 cm Ao root diam: 3.4 cm LVIDs: 2.7 cm LVPWd: 0.91 cm RVDd: 3.0 cm FS: 25.4 % LAV(MOD-bp): 216.1 ml EDV(MOD-sp4): 109.6 ml EDV(MOD-sp2): 90.1 ml LAV(MOD-bp) Indexed: 108.6 ml/m2 ESV(MOD-sp4): 54.2 ml ESV(MOD-sp2): 36.6 ml LAV(MOD-sp2): 204.4 ml EF(MOD-sp4): 50.6 % EF(MOD-sp2): 59.4 % LAV(MOD-sp4): 213.4 ml SV(MOD-sp4): 55.4 ml SV(MOD-sp2): 53.5 ml LA A4 area: 43.7 cm2 LA dimension(2D): 5.3 cm RA A4 area: 13.0 cm2 Doppler Measurements & Calculations Lat Peak E' Lavon: 6.3 cm/sec Med Peak E' [place]on: 5.0 cm/sec MV V2 max: 153.2 cm/sec MV max P.4 mmHg MV V2 mean: 64.0 cm/sec MV mean P.3 mmHg MV V2 VTI: 34.6 cm MR max lavon: 483.7 cm/sec PA V2 max: 89.5 cm/sec TR max lavon: 295.3 cm/sec MR max P.6 mmHg PA V2 mean: 58.7 cm/sec TR max P.9 mmHg MR mean lavon: 383.3 cm/sec MR mean P.3 mmHg MR VTI: 163.4 cm ECHO/Echo Complete Interpretation Summary Unable to assess diastolic dysfunction. The left atrium is severely enlarged. Mild (1+) mitral valve insufficiency. The estimated ejection fraction is 60 %. Ordering Physician: Diego Simms Referring Physician: Susie Dang Performed By: Brandi Pennington RDCS, RVT
[2023-01-03] MEDS: DULoxetine Hcl 30 MG Capsule PO (11:42)
[2023-01-03] MEDS: Metoprolol Tartrate 50 MG Tablet PO ×2 (11:43→22:06)
[2023-01-03] MEDS: Multivitamin (Healthy Eyes) Capsule 1 CAP PO ×2 (11:45→15:57)
[2023-01-03] MEDS: Cholecalciferol (Vit D3) 125 MCG CAPSULE (5,000 UNITS) PO (11:46)
[2023-01-03 11:51] LABS: Bedside Glucose 191 mg/dL (74-106)
--- NOTE | 2023-01-03 14:18 | CHAPLAIN ---
Type of Pastoral Visit _x__ Initial Visit ___ Follow-up Visit ___ On-call Visit ___ General Patient Visit ___ Spiritual Assessment ___ Family Conference ___ Bereavement ___ Rapid Response ___ Code Blue ___ Other (describe below) Pastoral Care Referral From _x__ Patient ___ Family ___ Nurse ___ Physician ___ Tobacco Blender ___ Title I Instructional Assistant ___ Other (describe below) Sacrament/Intervention ___ Active listening ___ Anointing ___ Anabaptist ___ Bereavement ___ Communion ___ Shila exploration ___ ___ Life review ___ Prayer ___ Reconciliation ___ Sacrament of Sick _x__ Supportive presence ___ Wedding ___ Other (describe below) Pastoral Comments patient is waiting on a room in the ED; pt is sleeping at this time; friend or family member is with her and states that it is best to let her rest for now; offer of support in the future as desired
[2023-01-03] MEDS: Gabapentin 300 MG Capsule PO ×2 (15:56→22:06)
[2023-01-03] MEDS: Jantoven 2 MG Tablet PO (15:56)
[2023-01-03] MEDS: Levothyroxine 50 MCG Tablet PO (15:56)
[2023-01-03 16:20] LABS: Bedside Glucose 105 mg/dL (74-106)
[2023-01-03 16:48] LABS: Troponin-I HS 38 pg/mL (3.0-54.0)
[2023-01-03] MEDS: Atorvastatin Calcium 20 MG Tablet PO (22:06)
[2023-01-03] MEDS: DULoxetine Hcl 60 MG Capsule PO (22:08)
[2023-01-04] VITALS (7 sets, daily range): BP systolic 133–136; BP diastolic 57–69; PULSE 60; RESP 16–18; TEMP 36.4–36.9; O2SAT 95–100; BMI 24.6
[2023-01-04 00:58] LABS: Bedside Glucose 118 mg/dL (74-106)
[2023-01-04] MEDS: Levothyroxine 50 MCG Tablet PO (06:53)
[2023-01-04 07:13] LABS: Bedside Glucose 141 mg/dL (74-106)
[2023-01-04 09:05] LABS: Absolute Lymphocyte Count 0.98 X10^3/uL (0.83-4.51); Absolute Neutrophil Count 3.7 X10^3/uL (2.0-7.7); Eosinophil# 0.09 X10^3/uL; Eosinophils% 1.7 % (0-5); Hematocrit 41.9 % (37-47); Hemoglobin 13.2 g/dL (12.0-15.0); Lymphocyte # 0.98 X10^3/ul (0.83-4.51); Lymphocyte % 18.4 % (19-41); Mean Corp Hgb Conc 31.5 g/dL (32-36); Mean Corpuscular Hgb 30.3 pg (27.0-32.0); Mean Corpuscular Volume 96.3 fL (81-99); Mean Platelet Vol. 10.4 fl (6.2-12.0); Monocyte# 0.57 X10^3/uL; Monocyte% 10.7 % (0-10); NRBC Flagged by Analyzer 0 % (0-5); Neutrophil # 3.66 X10^3/uL (2.7-7.7); Neutrophil % 68.8 % (47-70); Platelet Count 166 K/mm3 (150-450); RBC Distribution Width CV 14.2 % (11.6-14.6); RBC Distribution Width SD 49.9 fl (35.1-43.9); Red Blood Count 4.35 M/mm3 (4.2-5.4); White Blood Count 5.3 K/mm3 (4.4-11.0)
[2023-01-04] MEDS: Metoprolol Tartrate 50 MG Tablet PO (09:12)
[2023-01-04] MEDS: Multivitamin (Healthy Eyes) Capsule 1 CAP PO (09:12)
[2023-01-04] MEDS: Cholecalciferol (Vit D3) 125 MCG CAPSULE (5,000 UNITS) PO (09:12)
[2023-01-04] MEDS: DULoxetine Hcl 30 MG Capsule PO (09:12)
[2023-01-04] MEDS: Gabapentin 300 MG Capsule PO (09:12)
[2023-01-04] MEDS: Furosemide 40 MG/4 ML Vial IV (09:13)
[2023-01-04] MEDS: 0.9% Saline Lock 10 ML Syringe IV (09:16)
[2023-01-04 09:18] LABS: International Normalized Ratio 1.6; Prothrombin Time (Protime)PT. 18.7 SECONDS (11.7-14.9)
[2023-01-04] MEDS: Insulin Glargine-YFGN 100 UNIT/ML Pen SC (09:19)
[2023-01-04 09:30] LABS: Anion Gap 5 (5-15); BUN 26 mg/dL (7-18); BUN/Creat Ratio 18.1 RATIO (10-20); Calcium,Total 8.8 mg/dL (8.5-10.1); Chloride 104 mmol/L (98-107); Cholesterol 124 mg/dL (200); Creatinine, Serum 1.44 mg/dL (0.55-1.02); EST Glomerular Filtration Rate 37 mL/min (>60); Est Glom Filt Rate - Afr Amer 44 mL/min (>60); Estimated Creatinine Clearance 28.76 ml/min; Glucose 144 mg/dL (74-106); High Density Lipoprotein 50 mg/dL; Potassium 3.9 mmol/L (3.5-5.1); Sodium Level 140 mmol/L (136-145); Thyroid Stim Hormone (TSH) 1.19 uIU/mL (0.358-3.74); Triglycerides 117 mg/dL; Very Low Density Lipoprotein 23 mg/dL (5-40)
--- NOTE | 2023-01-04 09:55 | DCINST_ITS ---
Discharge Instructions Diet Discharge Diet: 8 Cup Fluid Restriction and 2000 mg Sodium Diet Activity Discharge Activity: Return to Normal Activity Weight Bearing Status: Weight bearing as tolerated Dressing / Incision Call your doctor if you observe: Fever of 101 or Higher, Coldness, Increased Pain, Numbness or Tingling, Change in Color, Inability to urinate, Inability to have a bowel movement, Using more than 1 pad per hour, Shortness of breath, Dizziness, Fainting spells, Swelling in the ankles, Chest pain, Prolonged hiccupping, Increased palpitations (irregular heartbeat) and Calf discomfort Follow Up Care When: IN 2 WEEKS Test Results: Test results from this visit will be discussed in further detail at your follow- up appointment, if applicable. Discharge Plan Admission Admit Date/Time: 01/03/23 07:12 Attending Provider: Diego Simms Primary Care Provider: Susie Dang Instructions Additional Instructions / Restrictions: BMP after 1 week as patient on furosemide and spironolactone follow-up with PCP. patient does not qualify for metformin as her creatinine clearance less than 30 mill per minute. Accu-Chek once daily before breakfast before taking glipizide. 2D echo as an outpatient. Discharge Orders/Prescriptions Prescriptions: New furosemide [Lasix] 40 mg tablet 40 mg PO BID Qty: 60 0RF spironolactone 25 mg tablet 12.5 mg PO DAILY Qty: 30 2RF glipizide 2.5 mg tablet extended release 24hr 2.5 mg PO DAILY Qty: 30 2RF Rx Instructions: Hold if glucose less than 130 mg/dl Continued PreserVision AREDS-2 250-90-40-1 mg capsule 1 tab PO BID acyclovir 800 mg tablet 800 mg PO BID cholecalciferol (vitamin D3) 5,000 UNIT capsule 1 tab PO DAILY duloxetine 60 MG capsule,delayed release(DR/EC) 60 mg PO QHS gabapentin 300 MG capsule 300 mg PO BID simvastatin 40 MG tablet 40 mg PO QHS arginine (L-arginine) 500 MG tablet 3,000 mg PO BID cyanocobalamin (vitamin B-12) 500 MCG tablet 1,000 mcg PO QWEEK levothyroxine 50 MCG tablet 50 mcg PO DAILY duloxetine 30 mg capsule,delayed release(DR/EC) 30 mg PO DAILY Patient Comments: takes @ HS PreserVision AREDS 4,296 mcg-226 mg-90 mg capsule 1 cap PO BID warfarin 2 mg tablet 2 mg PO .COMPLEX Protocol: Dose Management Condition: Friday Dose/Route: 6 mg Instruction: 3 x 2 mg tablets Condition: Friday Dose/Route: 4 mg Instruction: 2 x 2 mg tablets Condition: Friday Dose/Route: 4 mg Instruction: 2 x 2 mg tablets Condition: Friday Dose/Route: 4 mg Instruction: 2 x 2 mg tablets Condition: Dose/Route: 4 mg Instruction: 2 x 2 mg tablets Condition: Friday Dose/Route: 4 mg Instruction: 2 x 2 mg tablets Condition: Friday Dose/Route: 4 mg Instruction: 2 x 2 mg tablets Protocol Text: Adjustment Start Date: Friday12/30/22 INR Value: 3.1 INR Date: 12/30/22 Recheck Date: 01/13/23 Rx Instructions: 2 mg orally FRIDAY- FRIDAYand 3 tablets (6mg) ON friday metoprolol tartrate 50 mg tablet 50 mg PO BID Qty: 1 0RF Discontinued furosemide [Lasix] 20 mg tablet 40 mg PO BID Qty: 180 3RF Referrals / Follow Up: Susie Dang DO [Primary Care Provider] - Gisele Pitts PA [Med Staff - [facility]] - Within 2 Weeks (for CHF exacerbation) Disposition Disposition (needs filled in before D/C Order can be placed): Home, Self Care
--- NOTE | 2023-01-04 10:40 | CASEMGMT ---
PIERRE VILLAGRAN in to complete LÓPEZ form with patient. PIERRE VILLAGRAN explained LÓPEZ form to patient, patient voiced understanding. Patient signed LÓPEZ form and filed in chart. Patient provided with copy of signed LÓPEZ form. Patient denies needs at discharge, declined need for therapy at discharge. Patient had no further questions or concern.
--- NOTE | 2023-01-04 11:08 | PCM.DC.SUM ---
Providers Date of Admission: 01/03/23 Primary Care Physician: Dr. Susie Dang, DO Reason For Visit: SOB, HYPOXIA, HF? Diagnosis Discharge Diagnosis (1) Acute exacerbation of congestive heart failure: Status: Chronic Code(s): I50.9 - Heart failure, unspecified Qualifiers: Heart failure type: diastolic Qualified Code(s): I50.33 - Acute on chronic diastolic (congestive) heart failure Plan This is a 87-year-old female patient is currently being admitted for evaluation of shortness of breath with 1 month history of progressive worsening of dyspnea on exertion. 1. Acute on chronic HFpEF/diastolic heart failure: Patient follows Dr. Irby. Patient is being admitted in PCU. Heart failure core measures including intake and output, fluid restriction less than 1500 mL, daily weight monitoring, kidney and electrolytes monitoring. Patient on 40 mg twice daily furosemide at home. Started on Lasix in ED and continue 40 mg IV twice daily. Chest x-ray initially reviewed shows under ventilation/hypoexpansion of lungs bilateral lower lobes atelectasis. Incentive spirometry. Rapid COVID and flu antigens are negative 01/04: Fasting profile, TSH and free T4 in normal range. Patient shortness of breath is much improved. She is walking from bed to bathroom without shortness of breath. Lasix dose changed to oral 40 mg twice daily. Prescription given for Lasix and spironolactone 12.5 mg daily. Follow-up with PCP with BMP in 1 week. Follow-up in cardiology clinic and outpatient echo. 2. 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 INR is therapeutic. Monitor INR daily. 3. CLL, chronic rash, history of hypoglobulinemia and thrombocytopenia, Raynaud's disease peripheral arterial disease: Patient follows in oncology clinic with Dr. 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 History of hypoglycemia with multiple infection and was on IVIG in 2011. Received 6 cycles of Gazyva in 2016. Cutaneous involvement of CLL. Currently platelet count is normal 1 86,000. 4. Patient has healed wound overRight ankle: Patient follows Dr. Mckeon last visit 11/28/2022 in the clinic. 5. History of diabetes mellitus type 2 with peripheral vascular complications/PAD: Patient glucose elevated between 1 40-1 70. Discharged with glipizide 2.5 mg extended release with Accu-Chek before breakfast. Hold if glucose less than 130 mg/dL. Patient creatinine clearance less than 30 mill per minute and therefore does not qualify for metformin. Other comorbidities include history of herpes zoster with peripheral neuralgia, hypothyroidism on levothyroxine, gait instability/compromised equilibrium: PT and OT ordered. Home medication reconciliation done. Living will/advanced directive/end of life care: Patient does have living will or advanced directive. Patient's niece is power of labor contract analyst for health. After discussion of benefits/risks procedures involved with full code, DNR CC arrest and DNR CC with the patient and grandnephew, the patient opted for DNRCC arrest with no intubation. Patient doesn't want artificial life support including intubation, tube feed, ventilator and/chest compression, central venous catheter, vasopressor and DC shock if needed Total time spent in [id number] encounter in discussion of advanced directive 17 minutes. Microbiology Past 72 Hours 01/03/23 04:32 Nasal Secretion SARS-CoV-2 & FLU Antigen (Rapid) - Final Laboratory Results 01/03/23 11:32: POC Glucose 191 H 01/03/23 15:53: Troponin I High Sens 38 01/03/23 15:54: POC Glucose 105 01/03/23 22:05: POC Glucose 118 H 01/04/23 06:51: POC Glucose 141 H 01/04/23 08:48: WBC 5.3, RBC 4.35, Hgb 13.2, Hct 41.9, MCV 96.3, MCH 30.3, MCHC 31.5 L, RDW Std Deviation 49.9 H, RDW Coeff of Patrice 14.2, Plt Count 166, MPV 10.4, Immature Gran % (Auto) 0.400, Neut % (Auto) 68.8, Lymph % (Auto) 18.4 L, [place] % (Auto) 10.7 H, Eos % (Auto) 1.7, Baso % (Auto) 0.0, Absolute Neuts (auto) 3.7, Absolute Lymphs (auto) 0.98, Nucleated RBC % 0, PT 18.7 H, INR 1.6, Sodium 140, Potassium 3.9, Chloride 104, Carbon Dioxide 31.0, Anion Gap 5, BUN 26 H, Creatinine 1.44 H, Estim Creat Clear Calc 28.76, Est GFR (MDRD) Af Amer 44 L, Est GFR (MDRD) Non-Af 37 L, BUN/Creatinine Ratio 18.1, Glucose 144 H, Calcium 8.8, Triglycerides 117, Cholesterol 124, LDL Cholesterol 51, VLDL Cholesterol 23, HDL Cholesterol 50, TSH 1.19, Free T4 1.10 Clinical Impression(s) from Imaging Studies Chest X-Ray 01/03/23 04:50 IMPRESSION: Under expansion lungs. Could consider lower lobe atelectasis and/or infiltrates. Status post sternotomy. Pacemaker. Medications at Discharge Home Medications cholecalciferol (vitamin D3) 125 mcg (5,000 unit) capsule 1 tab PO DAILY 05/18/15 duloxetine 60 mg capsule,delayed release 60 mg PO QHS 04/11/16 gabapentin 300 mg capsule 300 mg PO BID 10/28/16 simvastatin 40 mg tablet 40 mg PO QHS 10/28/16 arginine (L-arginine) 500 mg tablet 3,000 mg PO BID 10/29/17 cyanocobalamin (vitamin B-12) 500 mcg tablet 1,000 mcg PO QWEEK 11/26/17 levothyroxine 50 mcg tablet 50 mcg PO DAILY 12/24/17 vit C 250 mg-vit E 90 mg-zinc 40 mg-copper 1 dl-dmitnk-dopdie capsule (PreserVision AREDS-2) 1 tab PO BID 01/24/21 acyclovir 800 mg tablet 800 mg PO BID 05/16/21 metoprolol tartrate 50 mg tablet 50 mg PO BID #1 TAB 10/22/22 duloxetine 30 mg capsule,delayed release 30 mg PO DAILY 11/01/22 vitamins A,C,R-kumd-dqndfe 4,296 mcg-226 mg-90 mg capsule (PreserVision AREDS) 1 cap PO BID 11/01/22 warfarin 2 mg tablet 2 mg PO .COMPLEX 01/03/23 furosemide 40 mg tablet (Lasix) 40 mg PO BID #60 tabs 01/04/23 glipizide 2.5 mg tablet, extended release 24 hr 2.5 mg PO DAILY #30 tabs 01/04/23 spironolactone 25 mg tablet 12.5 mg (1/2 x 25 mg) PO DAILY #30 tabs 01/04/23 Weight / BMI Weight Weight: 166 lb 3.657 oz Body Mass Index (BMI) 24.6 ABG / Lab / Microbiology Data 01/04/23 08:48 01/04/23 08:48 Laboratory: Laboratory Results - last 24 hr 01/03/23 11:32: POC Glucose 191 H 01/03/23 15:53: Troponin I High Sens 38 01/03/23 15:54: POC Glucose 105 01/03/23 22:05: POC Glucose 118 H 01/04/23 06:51: POC Glucose 141 H 01/04/23 08:48: WBC 5.3, RBC 4.35, Hgb 13.2, Hct 41.9, MCV 96.3, MCH 30.3, MCHC 31.5 L, RDW Std Deviation 49.9 H, RDW Coeff of Patrice 14.2, Plt Count 166, MPV 10.4, Immature Gran % (Auto) 0.400, Neut % (Auto) 68.8, Lymph % (Auto) 18.4 L, [place] % (Auto) 10.7 H, Eos % (Auto) 1.7, Baso % (Auto) 0.0, Absolute Neuts (auto) 3.7, Absolute Lymphs (auto) 0.98, Nucleated RBC % 0, PT 18.7 H, INR 1.6, Sodium 140, Potassium 3.9, Chloride 104, Carbon Dioxide 31.0, Anion Gap 5, BUN 26 H, Creatinine 1.44 H, Estim Creat Clear Calc 28.76, Est GFR (MDRD) Af Amer 44 L, Est GFR (MDRD) Non-Af 37 L, BUN/Creatinine Ratio 18.1, Glucose 144 H, Calcium 8.8, Triglycerides 117, Cholesterol 124, LDL Cholesterol 51, VLDL Cholesterol 23, HDL Cholesterol 50, TSH 1.19, Free T4 1.10 Microbiology: Microbiology 01/03/23 04:32 Nasal Secretion SARS-CoV-2 & FLU Antigen (Rapid) - Final D/C Instructions Discharge Diet: 8 Cup Fluid Restriction and 2000 mg Sodium Diet Weight Bearing Status: Weight bearing as tolerated Call your doctor if you observe: Fever of 101 or Higher, Coldness, Increased Pain, Numbness or Tingling, Change in Color, Inability to urinate, Inability to have a bowel movement, Using more than 1 pad per hour, Shortness of breath, Dizziness, Fainting spells, Swelling in the ankles, Chest pain, Prolonged hiccupping, Increased palpitations (irregular heartbeat) and Calf discomfort When: IN 2 WEEKS Meaningful Use Info Meaningful Use Diagnoses (Choose all that apply): None applicable Discharge Plan Admission Admit Date/Time: 01/03/23 07:12 Attending Provider: Diego Simms Primary Care Provider: Susie Dang Instructions Additional Instructions / Restrictions: BMP after 1 week as patient on furosemide and spironolactone follow-up with PCP. patient does not qualify for metformin as her creatinine clearance less than 30 mill per minute. Accu-Chek once daily before breakfast before taking glipizide. 2D echo as an outpatient. Discharge Orders/Prescriptions Prescriptions: New furosemide [Lasix] 40 mg tablet 40 mg PO BID Qty: 60 0RF spironolactone 25 mg tablet 12.5 mg PO DAILY Qty: 30 2RF glipizide 2.5 mg tablet extended release 24hr 2.5 mg PO DAILY Qty: 30 2RF Rx Instructions: Hold if glucose less than 130 mg/dl Continued PreserVision AREDS-2 250-90-40-1 mg capsule 1 tab PO BID acyclovir 800 mg tablet 800 mg PO BID cholecalciferol (vitamin D3) 5,000 UNIT capsule 1 tab PO DAILY duloxetine 60 MG capsule,delayed release(DR/EC) 60 mg PO QHS gabapentin 300 MG capsule 300 mg PO BID simvastatin 40 MG tablet 40 mg PO QHS arginine (L-arginine) 500 MG tablet 3,000 mg PO BID cyanocobalamin (vitamin B-12) 500 MCG tablet 1,000 mcg PO QWEEK levothyroxine 50 MCG tablet 50 mcg PO DAILY duloxetine 30 mg capsule,delayed release(DR/EC) 30 mg PO DAILY Patient Comments: takes @ HS PreserVision AREDS 4,296 mcg-226 mg-90 mg capsule 1 cap PO BID warfarin 2 mg tablet 2 mg PO .COMPLEX Protocol: Dose Management Condition: Friday Dose/Route: 6 mg Instruction: 3 x 2 mg tablets Condition: Friday Dose/Route: 4 mg Instruction: 2 x 2 mg tablets Condition: Friday Dose/Route: 4 mg Instruction: 2 x 2 mg tablets Condition: Friday Dose/Route: 4 mg Instruction: 2 x 2 mg tablets Condition: Dose/Route: 4 mg Instruction: 2 x 2 mg tablets Condition: Friday Dose/Route: 4 mg Instruction: 2 x 2 mg tablets Condition: Friday Dose/Route: 4 mg Instruction: 2 x 2 mg tablets Protocol Text: Adjustment Start Date: Friday12/30/22 INR Value: 3.1 INR Date: 12/30/22 Recheck Date: 01/13/23 Rx Instructions: 2 mg orally FRIDAY- FRIDAYand 3 tablets (6mg) ON friday metoprolol tartrate 50 mg tablet 50 mg PO BID Qty: 1 0RF Discontinued furosemide [Lasix] 20 mg tablet 40 mg PO BID Qty: 180 3RF Referrals / Follow Up: Susie Dang DO [Primary Care Provider] - Gisele Pitts PA [Med Staff - [facility]] - Within 2 Weeks (for CHF exacerbation) Disposition Disposition (needs filled in before D/C Order can be placed): Home, Self Care Charges/Coding Visit Charges Inpatient E&M: 11782 Disch Hosp >30min
[2023-01-04 12:34] LABS: Bedside Glucose 130 mg/dL (74-106)
== END 2023-01-04 11:08 | disposition home or self-care (01) ==
LOC: ED 06:52 → PCU 07:48
PROVIDERS: Admitting Provider Internal Medicine; Emergency Provider Emergency Medicine; PCP Internal Medicine; Visit Provider Internal Medicine
DX: I11.0 Hypertensive heart disease with heart failure (principal); C91.10 Chronic lymphocytic leukemia of B-cell type not having achieved remission; E11.51 Type 2 diabetes mellitus with diabetic peripheral angiopathy without gangrene; I42.1 Obstructive hypertrophic cardiomyopathy; I50.33 Acute on chronic diastolic (congestive) heart failure; I48.0 Paroxysmal atrial fibrillation; I25.10 Atherosclerotic heart disease of native coronary artery without angina pectoris; Z86.16 Personal history of COVID-19; Z95.0 Presence of cardiac pacemaker; Z79.01 Long term (current) use of anticoagulants; E78.5 Hyperlipidemia, unspecified; Z79.899 Other long term (current) drug therapy; Z95.1 Presence of aortocoronary bypass graft
CPT/HCPCS: 36415; 71045; 80048; 80061; 82962; 83735; 83880; 84100; 84439; 84443; 84484; 85025; 85610; 87428; 93005; 93306; 94640; 94668; 96374; 96376; 97166; 99221; 99285; A4216; G0378; J1940

== ENCOUNTER → 2023-01-07 | Outpatient (CLI) | payer MEDICARE, OTHER, SELFPAY ==
[2023-01-07 17:33] LABS: Absolute Lymphocyte Count 1.76 X10^3/uL (0.83-4.51); Absolute Neutrophil Count 5.4 X10^3/uL (2.0-7.7); Basophil# 0.01 X10^3/uL; Basophil% 0.1 % (0-1); Eosinophil# 0.09 X10^3/uL; Eosinophils% 1.1 % (0-5); Hematocrit 46.1 % (37-47); Hemoglobin 14.7 g/dL (12.0-15.0); Lymphocyte # 1.76 X10^3/ul (0.83-4.51); Lymphocyte % 21.6 % (19-41); Mean Corp Hgb Conc 31.9 g/dL (32-36); Mean Corpuscular Hgb 30.6 pg (27.0-32.0); Mean Corpuscular Volume 95.8 fL (81-99); Mean Platelet Vol. 10.6 fl (6.2-12.0); Monocyte# 0.85 X10^3/uL; Monocyte% 10.4 % (0-10); NRBC Flagged by Analyzer 0 % (0-5); Neutrophil # 5.41 X10^3/uL (2.7-7.7); Neutrophil % 66.3 % (47-70); Platelet Count 260 K/mm3 (150-450); RBC Distribution Width CV 14.3 % (11.6-14.6); RBC Distribution Width SD 50.1 fl (35.1-43.9); Red Blood Count 4.81 M/mm3 (4.2-5.4); White Blood Count 8.2 K/mm3 (4.4-11.0)
[2023-01-07 17:57] LABS: BNP,B-Type NATRIURETIC PEPTIDE 214.4 pg/mL (0-100)
[2023-01-07 18:12] LABS: ALB/GLOB Ratio 1.2 RATIO (0.9-2.4); AST(SGOT) 15 U/L (15-37); Alanine Aminotransfer ALT/SGPT 20 U/L (13-56); Albumin, Serum 3.9 g/dL (3.2-5.0); Alkaline Phosphatase 52 U/L (45-117); Anion Gap 4 (5-15); BUN 30 mg/dL (7-18); Calcium,Total 9.2 mg/dL (8.5-10.1); Chloride 104 mmol/L (98-107); Cholesterol 120 mg/dL (200); Creatinine, Serum 1.43 mg/dL (0.55-1.02); EST Glomerular Filtration Rate 37 mL/min (>60); Est Glom Filt Rate - Afr Amer 45 mL/min (>60); Globulin 3.3 g/dL (2.2-4.2); Glucose 75 mg/dL (74-106); High Density Lipoprotein 41 mg/dL; Protein, Total 7.2 g/dL (6.4-8.2); Sodium Level 137 mmol/L (136-145); Triglycerides 165 mg/dL; Very Low Density Lipoprotein 33 mg/dL (5-40)
[2023-01-07 18:20] LABS: Vitamin B12 657 pg/mL (211-911); Vitamin D,25 Hydroxy 58.9 ng/mL
[2023-01-07 18:22] LABS: Hemoglobin A1c 5.7 % (3.8-5.6)
== END | disposition home or self-care (01) ==
LOC: MTLAB 14:15
PROVIDERS: PCP Internal Medicine; Referring Provider Internal Medicine; Visit Provider Internal Medicine
DX: E11.9 Type 2 diabetes mellitus without complications (principal); I50.9 Heart failure, unspecified; I10 Essential (primary) hypertension; E55.9 Vitamin D deficiency, unspecified
CPT/HCPCS: 36415; 80053; 80061; 82306; 82607; 82746; 83036; 83880; 85025

== ENCOUNTER → 2023-01-20 | Outpatient (CLI) | payer MEDICARE, OTHER, SELFPAY ==
[2023-01-21 05:07] LABS: Immunoglobulin G 381 mg/dL (586-1602)
== END | disposition home or self-care (01) ==
PROVIDERS: PCP Internal Medicine; Referring Provider Nurse Practitioner Family; Visit Provider Nurse Practitioner Family
DX: D80.1 Nonfamilial hypogammaglobulinemia (principal)
CPT/HCPCS: 36415; 82784

== ENCOUNTER 2023-01-26 11:31 | Observation (INO) | payer MEDICARE, OTHER, SELFPAY ==
[2023-01-26] VITALS (7 sets, daily range): BP systolic 138–146; BP diastolic 54–77; PULSE 60–63; RESP 17–23; TEMP 36.1–37; O2SAT 90–95; BMI 27.6
--- NOTE | 2023-01-26 12:04 | EKG12_ITS ---
Test Reason : DIZZY Blood Pressure : / mmHG Vent. Rate : 060 BPM Atrial Rate : 208 BPM P-R Int : 000 ms QRS Dur : 186 ms QT Int : 490 ms P-R-T Axes : 000 -60 118 degrees QTc Int : 490 ms Ventricular-paced rhythm Abnormal ECG When compared with ECG of 03-JAN-2023 04:38, No significant change was found Confirmed by HAILEE KOCH MD ([id number]), publication editor JES BURROUGHS ([id number]) on 01/30/2023 11:29:26 AM Referred By: Confirmed By:HAILEE KOCH MD
--- NOTE | 2023-01-26 12:04 | RAD_ITS ---
EXAM: XR CHEST, 1 VIEW CLINICAL INDICATION: sob, minor cough TECHNIQUE: Frontal view of the chest. COMPARISON: 01/03/2023 FINDINGS: LUNGS AND PLEURAL SPACES: Right-sided hilar and pulmonary parenchymal granulomas. No pneumothorax. No effusion. HEART: Borderline cardiomegaly and/or pericardial effusion similar to the prior examination. Status post CABG. MEDIASTINUM: Central airways and mediastinal contour are unremarkable. BONES/JOINTS: Status post median sternotomy. SOFT TISSUES: No significant abnormality. TUBES, LINES AND DEVICES: Left-sided cardiac pacer. RAD/Chest 1 View (Portable) IMPRESSION: 1. Borderline cardiomegaly and/or pericardial effusion similar to the prior examination. 2. Status post CABG. Electronically Signed: Dre Viramontes DO at 12:35 EDT ,
--- NOTE | 2023-01-26 12:08 | EX.ED.DYSGE1 ---
HPI History of Present Illness Chief Complaint: Dizziness Informant: patient Narrative Narrative: Patient brought by EMS from her home after waking up in the middle of the night both dizzy and short of breath. She states the dizziness felt like movement/spinning, she states she has had that before, but not usually with this dyspnea. She states turning her head made the dizziness occur and worse, at this current time while sitting her in bed in the ER she does not feel dyspneic nor dizzy. She has had no chest discomfort or palpitations that she noticed, she has a minor nonproductive cough recently, no fevers or chills. She does not have a history of any lung problems but does have a history of cardiac disease and a history of a bypass and pacemaker for block. She is anticoagulated. She has had valve work done in the past. She states she felt okay when she went to bed last night. She denies headache, vision change although her vision is poor to begin with, earache, tinnitus, or changes in her hearing this morning. No recent falls or head injuries. She denies any focal neurologic symptoms in her periphery. [facility] Medical History Abnormal urine finding Atherosclerosis of coronary artery bypass graft without angina pectoris Atherosclerotic heart disease of [place] coronary artery without angina pectoris Bronchitis Chronic diastolic (congestive) heart failure Chronic lymphoid leukemia Complete heart block COVID-19 DM (diabetes mellitus), type 2 with peripheral vascular complications Essential (primary) hypertension Gout HLD (hyperlipidemia) Hypogammaglobulinemia, acquired Left bundle branch block (LBBB) Macular degeneration Mitral valve annular calcification Nonrheumatic mitral (valve) insufficiency Nonsustained ventricular tachycardia Obstructive hypertrophic cardiomyopathy Other specified transient cerebral ischemias Peripheral edema Proteinuria Skin tear of left upper extremity Uncontrolled hypertension URI (upper respiratory infection) Urinary frequency Home Medications cholecalciferol (vitamin D3) 125 mcg (5,000 unit) capsule 1 tab PO DAILY 05/18/15 [History Last Taken Unknown] duloxetine 60 mg capsule,delayed release 60 mg PO QHS 04/11/16 [History Last Taken Unknown] gabapentin 300 mg capsule 300 mg PO BID 10/28/16 [History Last Taken 12/21/21] simvastatin 40 mg tablet 40 mg PO QHS 10/28/16 [History Last Taken Unknown] arginine (L-arginine) 500 mg tablet 3,000 mg PO BID 10/29/17 [History Last Taken Unknown] cyanocobalamin (vitamin B-12) 500 mcg tablet 1,000 mcg PO QWEEK 11/26/17 [History Last Taken Unknown] levothyroxine 50 mcg tablet 50 mcg PO DAILY 12/24/17 [History Last Taken 12/21/21] vit C 250 mg-vit E 90 mg-zinc 40 mg-copper 1 qa-pdzsiw-ddyaec capsule (PreserVision AREDS-2) 1 tab PO BID 01/24/21 [History Last Taken Unknown] acyclovir 800 mg tablet 800 mg PO BID 05/16/21 [History Last Taken Unknown] metoprolol tartrate 50 mg tablet 50 mg PO BID #1 TAB 10/22/22 [Rx Last Taken Unknown] duloxetine 30 mg capsule,delayed release 30 mg PO DAILY 11/01/22 [History Last Taken Unknown] vitamins A,C,A-nlyd-abloau 4,296 mcg-226 mg-90 mg capsule (PreserVision AREDS) 1 cap PO BID 11/01/22 [History Last Taken Unknown] warfarin 2 mg tablet 2 mg PO .COMPLEX 01/03/23 [History Last Taken 01/02/23] furosemide 40 mg tablet (Lasix) 40 mg PO BID #60 tabs 01/04/23 [Rx Last Taken Unknown] glipizide 2.5 mg tablet, extended release 24 hr 2.5 mg PO DAILY #30 tabs 01/04/23 [Rx Last Taken Unknown] spironolactone 25 mg tablet 12.5 mg (1/2 x 25 mg) PO DAILY #30 tabs 01/04/23 [Rx Last Taken Unknown] Allergy/AdvReac Type Severity Reaction Status Date / Time amoxicillin trihydrate AdvReac Severe Vomiting Verified 01/22/23 10:13 [From Augmentin] lidocaine AdvReac Severe Other Verified 01/22/23 10:13 Penicillins AdvReac Severe Vomiting Verified 01/22/23 10:13 potassium clavulanate AdvReac Severe Vomiting Verified 01/22/23 10:13 [From Augmentin] Family History Father , age 86 CAD (coronary artery disease) Sister Asthma Surgical History H/O coronary artery bypass surgery (01/15/11) History of appendectomy History of cholecystectomy History of coronary artery stent placement (06/17/11) History of electrophysiologic study (01/21/11) History of hysterectomy History of mitral valve repair (01/15/11) History of tonsillectomy nerve ablation for pain management Presence of permanent cardiac pacemaker (12/21/21) Social History Smoking Status: Never smoker alcohol intake: never substance use type: does not use caffeine: Yes Type: coffee Number of servings: 2 what type of physical activity do you participate in: walking and weight training frequency: 5-6 times per week ROS ROS ED Constitutional Constitutional ED: Denies chills or fever(s) Eyes Eyes: Denies change in vision or diplopia ENT ENT ED: Reports as per HPI and vertigo; Denies ear discharge, ear pain, headache(s), hearing loss, rhinorrhea, sore throat or tinnitus Cardiovascular Cardiovascular: Reports leg edema; Denies chest pain or palpitations Respiratory/Chest Respiratory/Chest: Reports cough and dyspnea; Denies sputum Gastrointestinal Gastrointestinal: Denies abdominal pain, diarrhea, nausea or vomiting Genitourinary Genitourinary ED: Denies dysuria or hematuria Musculoskeletal Musculoskeletal: Denies back pain or neck pain Integumentary Denies abscess or rash Neurologic Neurologic: Denies headache(s), paresthesias or weakness Psychiatric Psychiatric: Denies anxiety or suicidal thoughts EXAM Physical Exam Const Vital Signs: 01/26/23 11:34 01/26/23 11:34 01/26/23 12:18 Temperature 97 F L Temperature Source Temporal Pulse Rate 63 Respiratory Rate 23 H Respiratory Effort Normal Respiratory Pattern Tachypnea Blood Pressure 146/54 H Blood Pressure Mean 84 Pulse Ox 91 Oxygen Delivery Method Room Air Room Air Positive well nourished and well developed General Appearance ED: well developed and NAD HEENT Reports TM's clear and moist mucous membranes normocephalic and atraumatic Tympanic Membrane ED: Yes TM's clear Eyes PERRL and EOMs intact bilaterally Eyes Narrative: No pathologic horizontal, nor vertical or rotatory nystagmus Neck full ROM and supple Neck Narrative: mild JVD present Resp normal respiratory effort and clear to auscultation bilaterally Cardio regular rate and regular rhythm Heart Sounds: murmur systolic IV/ crescendo-decrescendo GI non-tender and non-distended Auscultation: normoactive bowel sounds Palpation: soft Back/Spine no CVA tenderness General Back: other FROM Extremity normal to inspection General Extremety ED: Yes edema; Negative for pulses abnormal or tenderness General Extremity: edema bilateral lower extremity Details: mild; Negative for pulses abnormal Neuro oriented x3, CN's II-XII intact bilaterally and no sensory deficits noted Neuro Narrative: Normal [id number] and [id number]-de-jslb bilaterally within the limits of the exam, she is limited on the left lower extremity due to chronic knee pain. Sensorium / Orientation: awake and alert Motor Exam: strength 5/5 throughout Psych Psych Narrative: Flat affect Skin no rashes or lesions noted and no wounds MDM MDM MDM Narrative Medical decision making narrative: Patient does not have pleuritic chest discomfort although I considered PE and work-up for that, I think that is less likely to be the issue here. She had dyspnea with exertion at home but not necessarily orthopnea, she does have cardiomegaly on her chest x-ray, 1 view as interpreted by myself, radiology in agreement. She does not appear to be in gross pulmonary edema, she does not sound wet. She has a low INR because she stopped her warfarin recently due to having a upper back/neck spine injection 2 days ago. She states some of her chronic pain is improved since then, she has some redness in her left shoulder that started after that, it is sore but she can still move her shoulder okay and she has some chronic pain there but states she did not have a shoulder injection 2 days ago. Her troponin is elevated and her BNP is high, these are both in context of her renal function looking improved compared to normal. She has a nonspecific mildly elevated white blood count. She does not appear to have pneumonia on the chest x-ray to explain that. We got her up to try to walk her, but she got to the bedside after standing she was so dizzy that she did not feel comfortable walking, this is even after given meclizine, and she was 91% on room air just with standing up at the bedside so we did not ambulate her for fear of falling. Given all of this I think it would be llanos to admit her to the hospital monitored floor. I did review recent echocardiogram that really did not look too bad but she does have a pretty significant left atrial enlargement and some valvular issues with normal ejection fraction. She takes Lasix 40 mg twice daily, states her leg edema is a little better than usual right now given her 40 mg IV prior to admission. On further evaluation, the patient has minimally tender erythema surrounding the entire left shoulder joint. She states she did not get an injection in her left shoulder, she states it was in the base of her neck/upper back, and her pain is better since getting a steroid injection. She can move her left shoulder without any difficulty, there is no induration or abscess, and she is examining very well with regards to moving the joint and I do not think she has a septic arthritis. Unknown if this is infectious or just inflammatory related to do the injection as she recently had. Lab Data Attestation: I reviewed the patient's lab results. Labs: Laboratory Results - last 24 hr 01/26/23 11:48 WBC 11.1 H RBC 4.51 Hgb 13.8 Hct 43.5 MCV 96.5 MCH 30.6 MCHC 31.7 L RDW Std Deviation 48.8 H RDW Coeff of Patrice 13.8 Plt Count 185 MPV 10.7 Immature Gran % (Auto) 2.200 H Neut % (Auto) 81.6 H Lymph % (Auto) 7.4 L [place] % (Auto) 8.4 Eos % (Auto) 0.2 Baso % (Auto) 0.2 Absolute Neuts (auto) 9.0 H Absolute Lymphs (auto) 0.82 L Nucleated RBC % 0 PT 14.1 INR 1.1 Sodium 138 Potassium 4.1 Chloride 101 Carbon Dioxide 28.0 Anion Gap 9 BUN 25 H Creatinine 1.22 H Est GFR (MDRD) Af Amer 54 L Est GFR (MDRD) Non-Af 44 L BUN/Creatinine Ratio 20.5 H Glucose 154 H Calcium 9.3 Troponin I High Sens 78 H B-Natriuretic Peptide 896.3 H Radiography Chest X-Ray - ED: 1 View, Read by ED Physician, Chronic Changes, Cardiomegaly and No Infiltrates Diagnostic Testing: Clinical Impression(s) from Imaging Studies Chest X-Ray 01/26/23 12:04 IMPRESSION: 1. Borderline cardiomegaly and/or pericardial effusion similar to the prior examination. 2. Status post CABG. Electronically Signed: Dre Viramontes DO at 12:35 EDT , Rhythm Strip Rhythm Strip: paced Rate: 60 Ectopy: None EKG Initial EKG: Attestation: I personally reviewed and interpreted this EKG as follows: Interpretation: No Acute Injury Pattern and Paced (w/ underlying afib/flutter) Prior EKG tracings: available for review Prior: Unchanged Management Discussion w/another healthcare provider: Hospitalist Discharge Plan Triage Chief Complaint: Dizziness ED Provider: Agustin Farley Dx/Rx/DC Orders Clinical Impression: Acute dyspnea, Elevated troponin, Peripheral vertigo Prescriptions: No Action PreserVision AREDS-2 250-90-40-1 mg capsule 1 tab PO BID acyclovir 800 mg tablet 800 mg PO BID cholecalciferol (vitamin D3) 5,000 UNIT capsule 1 tab PO DAILY duloxetine 60 MG capsule,delayed release(DR/EC) 60 mg PO QHS gabapentin 300 MG capsule 300 mg PO BID simvastatin 40 MG tablet 40 mg PO QHS arginine (L-arginine) 500 MG tablet 3,000 mg PO BID cyanocobalamin (vitamin B-12) 500 MCG tablet 1,000 mcg PO QWEEK levothyroxine 50 MCG tablet 50 mcg PO DAILY duloxetine 30 mg capsule,delayed release(DR/EC) 30 mg PO DAILY Patient Comments: takes @ HS PreserVision AREDS 4,296 mcg-226 mg-90 mg capsule 1 cap PO BID warfarin 2 mg tablet 2 mg PO .COMPLEX Protocol: Dose Management Condition: Friday Dose/Route: 6 mg Instruction: 3 x 2 mg tablets Condition: Friday Dose/Route: 4 mg Instruction: 2 x 2 mg tablets Condition: Friday Dose/Route: 4 mg Instruction: 2 x 2 mg tablets Condition: Friday Dose/Route: 4 mg Instruction: 2 x 2 mg tablets Condition: Dose/Route: 4 mg Instruction: 2 x 2 mg tablets Condition: Friday Dose/Route: 4 mg Instruction: 2 x 2 mg tablets Condition: Friday Dose/Route: 4 mg Instruction: 2 x 2 mg tablets Protocol Text: Adjustment Start Date: Friday01/14/23 INR Value: 2.0 INR Date: 01/14/23 Rx Instructions: 2 mg orally FRIDAY- FRIDAYand 3 tablets (6mg) ON friday furosemide [Lasix] 40 mg tablet 40 mg PO BID Qty: 60 0RF spironolactone 25 mg tablet 12.5 mg PO DAILY Qty: 30 2RF glipizide 2.5 mg tablet extended release 24hr 2.5 mg PO DAILY Qty: 30 2RF Rx Instructions: Hold if glucose less than 130 mg/dl metoprolol tartrate 50 mg tablet 50 mg PO BID Qty: 1 0RF Primary Care Provider: Susie Dang Referrals: Susie Dang, DO [Primary Care Provider] - Disposition Disposition: Acute Care Hospital [facility]
[2023-01-26] MEDS: Meclizine HCl 25 MG Tablet PO (12:22)
[2023-01-26 12:26] LABS: Absolute Lymphocyte Count 0.82 X10^3/uL (0.83-4.51); Basophil# 0.02 X10^3/uL; Basophil% 0.2 % (0-1); Eosinophil# 0.02 X10^3/uL; Eosinophils% 0.2 % (0-5); Hematocrit 43.5 % (37-47); Hemoglobin 13.8 g/dL (12.0-15.0); International Normalized Ratio 1.1; Lymphocyte # 0.82 X10^3/ul (0.83-4.51); Lymphocyte % 7.4 % (19-41); Mean Corp Hgb Conc 31.7 g/dL (32-36); Mean Corpuscular Hgb 30.6 pg (27.0-32.0); Mean Corpuscular Volume 96.5 fL (81-99); Mean Platelet Vol. 10.7 fl (6.2-12.0); Monocyte# 0.93 X10^3/uL; Monocyte% 8.4 % (0-10); NRBC Flagged by Analyzer 0 % (0-5); Neutrophil # 9.02 X10^3/uL (2.7-7.7); Neutrophil % 81.6 % (47-70); Platelet Count 185 K/mm3 (150-450); Prothrombin Time (Protime)PT. 14.1 SECONDS (11.7-14.9); RBC Distribution Width CV 13.8 % (11.6-14.6); RBC Distribution Width SD 48.8 fl (35.1-43.9); Red Blood Count 4.51 M/mm3 (4.2-5.4); White Blood Count 11.1 K/mm3 (4.4-11.0)
[2023-01-26 12:34] LABS: Anion Gap 9 (5-15); BUN 25 mg/dL (7-18); BUN/Creat Ratio 20.5 RATIO (10-20); Calcium,Total 9.3 mg/dL (8.5-10.1); Chloride 101 mmol/L (98-107); Creatinine, Serum 1.22 mg/dL (0.55-1.02); EST Glomerular Filtration Rate 44 mL/min (>60); Est Glom Filt Rate - Afr Amer 54 mL/min (>60); Glucose 154 mg/dL (74-106); Potassium 4.1 mmol/L (3.5-5.1); Sodium Level 138 mmol/L (136-145); Troponin-I HS 78 pg/mL (3.0-54.0)
[2023-01-26 12:49] LABS: BNP,B-Type NATRIURETIC PEPTIDE 896.3 pg/mL (0-100)
[2023-01-26] MEDS: Furosemide 40 MG/4 ML Vial IV (13:48)
--- NOTE | 2023-01-26 13:55 | PCM.HP.STD ---
HPI - General General Date of Admission: 01/26/23 HPI Narrative BEVERLY GARCIA, is a 87 F who presents to the hospital with increased shortness of breath and vertigo. She has had vertigo in the past periodically but she presented today because of increased shortness of breath. She was recently admitted for heart failure exacerbation and was told that if she ever feels short of breath she can take an extra Lasix. She took 2 of her p.o. Lasix this morning but had no significant improvement right away so she presented to the hospital. She has noted that she gained 3 pounds between yesterday and today but she is not hypoxic at rest. She was attempting to ambulate in the ER but she became too dizzy with her vertigo. She started to feel little bit better after she had received meclizine. On a recent admission she did have an echo with an EF of 60% and diastolic dysfunction could not be asked as she has a history of A-fib/flutter [facility] Medical History Abnormal urine finding Atherosclerosis of coronary artery bypass graft without angina pectoris Atherosclerotic heart disease of [place] coronary artery without angina pectoris Bronchitis Chronic diastolic (congestive) heart failure Chronic lymphoid leukemia Complete heart block COVID-19 DM (diabetes mellitus), type 2 with peripheral vascular complications Essential (primary) hypertension Gout HLD (hyperlipidemia) Hypogammaglobulinemia, acquired Left bundle branch block (LBBB) Macular degeneration Mitral valve annular calcification Nonrheumatic mitral (valve) insufficiency Nonsustained ventricular tachycardia Obstructive hypertrophic cardiomyopathy Other specified transient cerebral ischemias Peripheral edema Proteinuria Skin tear of left upper extremity Uncontrolled hypertension URI (upper respiratory infection) Urinary frequency Home Medications cholecalciferol (vitamin D3) 125 mcg (5,000 unit) capsule 1 tab PO DAILY 05/18/15 [History Last Taken Unknown] duloxetine 60 mg capsule,delayed release 60 mg PO DAILY 04/11/16 [History Last Taken Unknown] gabapentin 300 mg capsule 300 mg PO BID 10/28/16 [History Last Taken 12/21/21] simvastatin 40 mg tablet 40 mg PO QHS 10/28/16 [History Last Taken Unknown] arginine (L-arginine) 500 mg tablet 500 mg PO BID 10/29/17 [History Last Taken Unknown] cyanocobalamin (vitamin B-12) 500 mcg tablet 1,000 mcg PO DAILY 11/26/17 [History Last Taken Unknown] levothyroxine 50 mcg tablet 50 mcg PO DAILY 12/24/17 [History Last Taken 12/21/21] vit C 250 mg-vit E 90 mg-zinc 40 mg-copper 1 [id number]-[id number] capsule (PreserVision AREDS-2) 1 tab PO BID 01/24/21 [History Last Taken Unknown] acyclovir 800 mg tablet 800 mg PO BID 05/16/21 [History Last Taken Unknown] metoprolol tartrate 50 mg tablet 50 mg PO BID #1 TAB 10/22/22 [Rx Last Taken Unknown] duloxetine 30 mg capsule,delayed release 30 mg PO QHS 11/01/22 [History Last Taken Unknown] vitamins A,C,O-woej-abmuwf 4,296 mcg-226 mg-90 mg capsule (PreserVision AREDS) 1 cap PO BID 11/01/22 [History Last Taken Unknown] warfarin 2 mg tablet 4 mg PO DAILY 01/03/23 [History Last Taken 01/02/23] furosemide 40 mg tablet (Lasix) 40 mg PO BID #60 tabs 01/04/23 [Rx Last Taken Unknown] spironolactone 25 mg tablet 12.5 mg (1/2 x 25 mg) PO DAILY #30 tabs 01/04/23 [Rx Last Taken Unknown] oxybutynin chloride 10 mg tablet,extended release 24 hr 10 mg PO DAILY 01/26/23 [History Last Taken Unknown] Allergy/AdvReac Type Severity Reaction Status Date / Time amoxicillin trihydrate AdvReac Severe Vomiting Verified 01/26/23 13:55 [From Augmentin] lidocaine AdvReac Severe Other Verified 01/26/23 13:55 Penicillins AdvReac Severe Vomiting Verified 01/26/23 13:55 potassium clavulanate AdvReac Severe Vomiting Verified 01/26/23 13:55 [From Augmentin] Family History Father , age 86 CAD (coronary artery disease) Sister Asthma Surgical History H/O coronary artery bypass surgery (01/15/11) History of appendectomy History of cholecystectomy History of coronary artery stent placement (06/17/11) History of electrophysiologic study (01/21/11) History of hysterectomy History of mitral valve repair (01/15/11) History of tonsillectomy nerve ablation for pain management Presence of permanent cardiac pacemaker (12/21/21) Social History (Updated 01/26/23 @ 14:38 by Kandy Chung) household members: family housing: house Smoking Status: Never smoker alcohol intake: never substance use type: does not use caffeine: Yes Type: coffee Number of servings: 2 what type of physical activity do you participate in: walking and weight training frequency: 5-6 times per week ROS Constitutional Constitutional: Denies chills, fatigue, fever(s) or malaise Eyes Eyes: Denies blurry vision ENT HEENT: Denies headache(s) or nasal discharge Cardiovascular Cardiovascular: Reports dyspnea on exertion; Denies chest pain or syncope Respiratory/Chest Respiratory/Chest: Denies cough, shortness of breath at rest or shortness of breath with exertion Gastrointestinal Gastrointestinal: Denies constipation, diarrhea, nausea or vomiting Genitourinary Genitourinary: Denies dysuria Neurologic Neurologic: Reports dizziness; Denies focal weakness, numbness or tremor(s) Psychiatric Psychiatric: Denies anxiety or depression Vital Signs Vital Signs Vital Signs: 01/26/23 11:34 01/26/23 11:34 01/26/23 12:18 Temperature 97 F L Temperature Source Temporal Pulse Rate 63 Respiratory Rate 23 H Respiratory Effort Normal Respiratory Pattern Tachypnea Blood Pressure 146/54 H Blood Pressure Mean 84 Pulse Ox 91 Oxygen Delivery Method Room Air Room Air 01/26/23 13:52 01/26/23 13:53 Temperature Temperature Source Pulse Rate 60 60 Respiratory Rate 20 H 21 H Respiratory Effort Respiratory Pattern Blood Pressure 140/77 H 140/77 H Blood Pressure Mean 98 98 Pulse Ox 90 92 Oxygen Delivery Method Room Air Physical Exam Narrative General: Alert, Oriented x3, Cooperative, No apparent distress HEENT: Atraumatic, PERRLA, EOMI, Normocephalic, no nystagmus Oral: Moist Mucosa Neck: Supple, No JVD Lungs: Diminished, Normal air movement, No rhonchi, No wheeze, No rales Cardiovascular: Regular rate, Regular Rhythm, Normal S1, Normal S2, murmur Abdomen: Soft, Non Tender, Non-Distended, No Hepato-splenomegaly Extremities: Trace edema, Capillary Refill Less than 3 Seconds Skin: No rashes, No breakdown Musculoskeletal: No Tenderness to Palpation of Joints or Extremities Neurological: Moves all extremities, Sensory exam intact to light touch and pain Psych/Mental Status: Normal Affect, Appropriate Results Lab / Micro Data 01/26/23 11:48 01/26/23 11:48 Labs: Laboratory Results - last 24 hr 01/26/23 11:48: WBC 11.1 H, RBC 4.51, Hgb 13.8, Hct 43.5, MCV 96.5, MCH 30.6, MCHC 31.7 L, RDW Std Deviation 48.8 H, RDW Coeff of Patrice 13.8, Plt Count 185, MPV 10.7, Immature Gran % (Auto) 2.200 H, Neut % (Auto) 81.6 H, Lymph % (Auto) 7.4 L, [place] % (Auto) 8.4, Eos % (Auto) 0.2, Baso % (Auto) 0.2, Absolute Neuts (auto) 9.0 H, Absolute Lymphs (auto) 0.82 L, Nucleated RBC % 0, PT 14.1, INR 1.1, Sodium 138, Potassium 4.1, Chloride 101, Carbon Dioxide 28.0, Anion Gap 9, BUN 25 H, Creatinine 1.22 H, Est GFR (MDRD) Af Amer 54 L, Est GFR (MDRD) Non-Af 44 L, BUN/Creatinine Ratio 20.5 H, Glucose 154 H, Calcium 9.3, Troponin I High Sens 78 H, B-Natriuretic Peptide 896.3 H Rhythm Strip Rhythm Strip: paced Rate: 60 Ectopy: None Radiology Impression Chest X-Ray 01/26/23 12:04 IMPRESSION: 1. Borderline cardiomegaly and/or pericardial effusion similar to the prior examination. 2. Status post CABG. Electronically Signed: Dre Viramontes DO at 12:35 EDT , Assessment & Plan Assessment/Plan (1) Acute dyspnea: (2) Elevated troponin: (3) Peripheral vertigo: PLAN: Plan 1. Elevated troponin with dyspnea on exertion secondary to chronic diastolic CHF/CAD status post CABG/HTN/HLD/A-fib ? She did receive a dose of IV Lasix in the ED and she had taken 80 mg p.o. this morning ? We will continue with Lasix as needed tomorrow after evaluation as she does have a history of chronic kidney disease ? Can resume her warfarin and her home medications when verified ? Will not repeat her echo ? We will trend her troponins that this is likely demand ischemia 2. Vertigo ? This is an intermittently chronic issue with her ? No nystagmus to the on the exam either with eye movement or with head movement though she says that she does get dizzy with head movement ? We will continue with as needed meclizine which she may benefit from on discharge 3. CLL ? In remission 4. Anxiety/depression ? Stable ? Continue with her home medications when verified 5. Hypothyroidism ? Stable ? We will continue Synthroid when verified DVT: Coumadin 75 minutes was spent on direct patient care, including documentation as well as chart review and collaboration with colleagues Charges/Coding Visit Charges Inpatient E&M: 42197 Init Hosp L3
--- NOTE | 2023-01-26 13:58 | NURSING ---
121 KOTSONIS DYSPNEA, VERTIGO
[2023-01-26 17:23] LABS: Bedside Glucose 116 mg/dL (74-106)
[2023-01-26 17:55] LABS: Troponin-I HS 85 pg/mL (3.0-54.0)
[2023-01-26] MEDS: 0.9% Saline Lock 10 ML Syringe IV (22:17)
[2023-01-26] MEDS: Acyclovir 800 MG Tablet PO (22:17)
[2023-01-26] MEDS: Metoprolol Tartrate 50 MG Tablet PO (22:17)
[2023-01-26] MEDS: Atorvastatin Calcium 20 MG Tablet PO (22:18)
[2023-01-26] MEDS: Gabapentin 300 MG Capsule PO (22:18)
[2023-01-26] MEDS: DULoxetine Hcl 30 MG Capsule PO (22:18)
[2023-01-26 23:22] LABS: Bedside Glucose 133 mg/dL (74-106)
--- NOTE | 2023-01-27 02:11 | NURSING ---
Called into room by [employer], pt was sitting on edge of bed naked, IV pulled out, ID bracelets off, tele monitor off, and purewick off. Alert and oriented to person and place. Attempted to re-orient. Back in bed resting, new IV in place, tele put back on. Bed exit on.
[2023-01-27 04:12] VITALS: BP 159/68; PULSE 60; RESP 16; TEMP 36.6; O2SAT 93
[2023-01-27 05:04] VITALS: BMI 26.9
[2023-01-27 05:59] LABS: Absolute Lymphocyte Count 1.38 X10^3/uL (0.83-4.51); Absolute Neutrophil Count 6.5 X10^3/uL (2.0-7.7); Basophil# 0.02 X10^3/uL; Basophil% 0.2 % (0-1); Eosinophil# 0.03 X10^3/uL; Eosinophils% 0.3 % (0-5); Hematocrit 41.8 % (37-47); Hemoglobin 13.2 g/dL (12.0-15.0); Lymphocyte # 1.38 X10^3/ul (0.83-4.51); Lymphocyte % 15.7 % (19-41); Mean Corp Hgb Conc 31.6 g/dL (32-36); Mean Corpuscular Hgb 30.1 pg (27.0-32.0); Mean Corpuscular Volume 95.2 fL (81-99); Mean Platelet Vol. 11.1 fl (6.2-12.0); Monocyte# 0.81 X10^3/uL; Monocyte% 9.2 % (0-10); NRBC Flagged by Analyzer 0 % (0-5); Neutrophil # 6.49 X10^3/uL (2.7-7.7); Neutrophil % 74.1 % (47-70); Platelet Count 160 K/mm3 (150-450); RBC Distribution Width CV 13.8 % (11.6-14.6); RBC Distribution Width SD 48.8 fl (35.1-43.9); Red Blood Count 4.39 M/mm3 (4.2-5.4); White Blood Count 8.8 K/mm3 (4.4-11.0)
[2023-01-27 06:07] LABS: International Normalized Ratio 1.2; Prothrombin Time (Protime)PT. 14.7 SECONDS (11.7-14.9)
[2023-01-27] MEDS: Levothyroxine 50 MCG Tablet PO (06:22)
[2023-01-27 06:36] LABS: Anion Gap 6 (5-15); BUN 28 mg/dL (7-18); BUN/Creat Ratio 25.5 RATIO (10-20); Calcium,Total 8.8 mg/dL (8.5-10.1); Chloride 107 mmol/L (98-107); EST Glomerular Filtration Rate 50 mL/min (>60); Est Glom Filt Rate - Afr Amer 60 mL/min (>60); Estimated Creatinine Clearance 33.73 ml/min; Glucose 143 mg/dL (74-106); Potassium 3.9 mmol/L (3.5-5.1); Sodium Level 140 mmol/L (136-145)
--- NOTE | 2023-01-27 09:16 | PCM.PN.HOSP ---
Reason for Visit Reason for Visit: Diagnoses Other peripheral vertigo, unspecified ear (01/26/23) Dyspnea, unspecified (01/26/23) Other specified abnormal findings of blood chemistry (01/26/23) Objective Data Objective Data Vital Signs: Vital Signs Temp Pulse Resp BP Pulse Ox O2 Del Method 97.8 F 60 16 159/68 H 93 Room Air 01/27/23 04:12 01/27/23 04:12 01/27/23 04:12 01/27/23 04:12 01/27/23 04:12 01/27/23 08:00 Oxygen Delivery Method Room Air Weight: 75.8 kg Body Mass Index (BMI) 26.9 Intake & Output: Intake and Output for Last 24 Hours 01/25/23 01/26/23 01/27/23 23:59 23:59 23:59 Intake Total 275 / 275 Output Total 1400 / 1400 350 / 350 Balance -1125 / -1125 -350 / -350 Lab / Micro Data 01/27/23 05:06 01/27/23 05:06 Labs: Laboratory Results - last 24 hr 01/26/23 11:48: WBC 11.1 H, RBC 4.51, Hgb 13.8, Hct 43.5, MCV 96.5, MCH 30.6, MCHC 31.7 L, RDW Std Deviation 48.8 H, RDW Coeff of Patrice 13.8, Plt Count 185, MPV 10.7, Immature Gran % (Auto) 2.200 H, Neut % (Auto) 81.6 H, Lymph % (Auto) 7.4 L, Sherman % (Auto) 8.4, Eos % (Auto) 0.2, Baso % (Auto) 0.2, Absolute Neuts (auto) 9.0 H, Absolute Lymphs (auto) 0.82 L, Nucleated RBC % 0, PT 14.1, INR 1.1, Sodium 138, Potassium 4.1, Chloride 101, Carbon Dioxide 28.0, Anion Gap 9, BUN 25 H, Creatinine 1.22 H, Est GFR (MDRD) Af Amer 54 L, Est GFR (MDRD) Non-Af 44 L, BUN/Creatinine Ratio 20.5 H, Glucose 154 H, Calcium 9.3, Troponin I High Sens 78 H, B-Natriuretic Peptide 896.3 H 01/26/23 17:05: POC Glucose 116 H 01/26/23 17:27: Troponin I High Sens 85 H 01/26/23 22:14: POC Glucose 133 H 01/27/23 05:06: WBC 8.8, RBC 4.39, Hgb 13.2, Hct 41.8, MCV 95.2, MCH 30.1, MCHC 31.6 L, RDW Std Deviation 48.8 H, RDW Coeff of Patrice 13.8, Plt Count 160, MPV 11.1, Immature Gran % (Auto) 0.500, Neut % (Auto) 74.1 H, Lymph % (Auto) 15.7 L, Sherman % (Auto) 9.2, Eos % (Auto) 0.3, Baso % (Auto) 0.2, Absolute Neuts (auto) 6.5, Absolute Lymphs (auto) 1.38, Nucleated RBC % 0, PT 14.7, INR 1.2, Sodium 140, Potassium 3.9, Chloride 107, Carbon Dioxide 27.0, Anion Gap 6, BUN 28 H, Creatinine 1.10 H, Estim Creat Clear Calc 33.73, Est GFR (MDRD) Af Amer 60, Est GFR (MDRD) Non-Af 50 L, BUN/Creatinine Ratio 25.5 H, Glucose 143 H, Calcium 8.8 Radiography Diagnostic Testing: Radiology Impression Chest X-Ray 01/26/23 12:04 IMPRESSION: 1. Borderline cardiomegaly and/or pericardial effusion similar to the prior examination. 2. Status post CABG. Electronically Signed: Dre Viramontes DO at 12:35 EDT , Rhythm Strip Rhythm Strip: paced Rate: 60 Ectopy: None Physical Exam Narrative General: Alert, Oriented x3, Cooperative, No apparent distress HEENT: Atraumatic, PERRLA, EOMI, Normocephalic, no nystagmus Oral: Moist Mucosa Neck: Supple, No JVD Lungs: Diminished, Normal air movement, No rhonchi, No wheeze, No rales Cardiovascular: Regular rate, Regular Rhythm, Normal S1, Normal S2, murmur Abdomen: Soft, Non Tender, Non-Distended, No Hepato-splenomegaly Extremities: Trace edema, Capillary Refill Less than 3 Seconds Skin: No rashes, No breakdown Musculoskeletal: No Tenderness to Palpation of Joints or Extremities Neurological: Moves all extremities, Sensory exam intact to light touch and pain Psych/Mental Status: Normal Affect, Appropriate Assessment & Plan Assessment/Plan (1) Acute dyspnea: (2) Elevated troponin: (3) Peripheral vertigo: PLAN: Plan 1. Elevated troponin with dyspnea on exertion secondary to chronic diastolic CHF/CAD status post CABG/HTN/HLD/A-fib ? She did receive a dose of IV Lasix in the ED and she had taken 80 mg p.o. this morning ? We will continue with Lasix as needed tomorrow after evaluation as she does have a history of chronic kidney disease ? Can resume her warfarin and her home medications when verified ? Will not repeat her echo ? We will trend her troponins that this is likely demand ischemia 2. Vertigo ? This is an intermittently chronic issue with her ? No nystagmus to the on the exam either with eye movement or with head movement though she says that she does get dizzy with head movement ? We will continue with as needed meclizine which she may benefit from on discharge 3. CLL ? In remission 4. Anxiety/depression ? Stable ? Continue with her home medications when verified 5. Hypothyroidism ? Stable ? We will continue Synthroid when verified DVT: Coumadin 75 minutes was spent on direct patient care, including documentation as well as chart review and collaboration with colleagues
[2023-01-27 10:13] VITALS: BP 148/77; PULSE 61; RESP 18; TEMP 36.6; O2SAT 98
[2023-01-27 10:19] VITALS: PULSE 61
[2023-01-27] MEDS: Metoprolol Tartrate 50 MG Tablet PO (10:19)
[2023-01-27] MEDS: Furosemide 40 MG Tablet PO (10:19)
[2023-01-27] MEDS: DULoxetine Hcl 60 MG Capsule PO (10:19)
[2023-01-27] MEDS: Miconazole Nitrate 43 GM Bottle 1 APPLIC TOPICAL (10:20)
[2023-01-27] MEDS: Gabapentin 300 MG Capsule PO (10:20)
[2023-01-27] MEDS: Spironolactone 25 MG Tablet 12.5 MG PO (10:20)
[2023-01-27] MEDS: Acyclovir 800 MG Tablet PO (10:20)
--- NOTE | 2023-01-27 11:00 | CASEMGMT ---
RN CM Face to Face with patient for initial transition planning/care coordination assessment. RN CM introduced self and role at [facility]. Patient sitting in chair, alert and oriented. Patient willing to participate in assessment and is able to answer all questions appropriately. Care providers, pharmacy, and demographics verified. Patient wishes to discharge home and would like HHC at discharge. A list of HHC providers including quality and resource use data and consistent with the patient?s preferred geographical region, medical needs, and insurance network were provided from the [employer] Guide. Patient to review list and provide preferences. Patient states she has no further needs or concerns at this time. CM to follow for discharge planning needs that may arise. PCP: [facility] Specialists: Mahamed, co director; Dawson, barrel lathe operator; Dakota, pain; Mike, car rental sales assistant; Justen, urologist [facility]erred Pharm[facility]: [facility] Prescription Benefit: yes Living Will/HPOA: yes, Niece Jenny Venegas LNOK: niece, sister, nephew Living Arrangements: Patient lives with great nephew in a single story home with 2 steps and railing to enter the home. Patient states she is independent at home with self care Transportation: hospital van, sister, nephew DME/HHC: Patient has shower chair, raised toilet, cane, walker, grab bars. Patient has had [facility]HC in the past. No previous SNF. Disposition Plan: Patient to discharge home with HHC, family support, and follow-up plans in place. Brooke BOWENS, RN, CM
[2023-01-27 11:31] LABS: Bedside Glucose 141 mg/dL (74-106)
--- NOTE | 2023-01-27 11:36 | CASEMGMT ---
Discharge Planning A list of? HH?providers including quality and resource use data and consistent with the patient's preferred geographic region, medical needs, and insurance network was created in [employer] Guide.? This list was provided to the RN SPARKLE. Martha Baldwin, Discharge Planning Asst.
[2023-01-27 11:42] LABS: Bedside Glucose 147 mg/dL (74-106)
--- NOTE | 2023-01-27 11:55 | PCM.DC.SUM ---
Providers Date of Admission: 01/26/23 Date of Discharge: 01/27/23 Primary Care Physician: Dr. Susie Dang DO Reason For Visit: VOLUME OVERLOAD AND VERTIGO Diagnosis Discharge Diagnosis (1) Acute dyspnea: Status: Acute Code(s): R06.00 - Dyspnea, unspecified (2) Elevated troponin: Status: Acute Code(s): R79.89 - Other specified abnormal findings of blood chemistry (3) Peripheral vertigo: Status: Acute Code(s): H81.399 - Other peripheral vertigo, unspecified ear Medications at Discharge Home Medications cholecalciferol (vitamin D3) 125 mcg (5,000 unit) capsule 1 tab PO DAILY 05/18/15 duloxetine 60 mg capsule,delayed release 60 mg PO DAILY 04/11/16 gabapentin 300 mg capsule 300 mg PO BID 10/28/16 simvastatin 40 mg tablet 40 mg PO QHS 10/28/16 arginine (L-arginine) 500 mg tablet 500 mg PO BID 10/29/17 cyanocobalamin (vitamin B-12) 500 mcg tablet 1,000 mcg PO DAILY 11/26/17 levothyroxine 50 mcg tablet 50 mcg PO DAILY 12/24/17 vit C 250 mg-vit E 90 mg-zinc 40 mg-copper 1 eo-imzlnw-tlnqwk capsule (PreserVision AREDS-2) 1 tab PO BID 01/24/21 acyclovir 800 mg tablet 800 mg PO BID 05/16/21 metoprolol tartrate 50 mg tablet 50 mg PO BID #1 TAB 10/22/22 duloxetine 30 mg capsule,delayed release 30 mg PO QHS 11/01/22 vitamins A,C,S-eykx-istksq 4,296 mcg-226 mg-90 mg capsule (PreserVision AREDS) 1 cap PO BID 11/01/22 warfarin 2 mg tablet 4 mg PO DAILY 01/03/23 furosemide 40 mg tablet (Lasix) 40 mg PO BID #60 tabs 01/04/23 spironolactone 25 mg tablet 12.5 mg (1/2 x 25 mg) PO DAILY #30 tabs 01/04/23 oxybutynin chloride 10 mg tablet,extended release 24 hr 10 mg PO DAILY 01/26/23 Hospital Course Summary of Care Provided Minutes Spent on Discharge: 35 Hospital Course: Patient is an 87-year-old lady with multiple comorbidities including coronary artery disease status post CABG, CLL currently on treatment admitted with shortness of breath and vertigo 1. Acute on chronic congestive heart failure with preserved ejection fraction ? Admitted to monitored bed managed with diuretics patient's symptoms did improve. Echo from 01/04/2023 demonstrated EF of 60% 2. Elevated troponin ? Secondary to demand ischemia from above 3. Acute vertigo ? Chronic in nature treated symptomatically 4. Coronary artery disease ? With previous CABG 6. Valvular heart disease -with history of mitral valve regurgitation status post repair 6. 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 Status post pacemaker placement 7. CLL -currently remission followed by oncology 8. Hypothyroidism - Patient is on levothyroxine home dose continued 9. Paroxysmal A-fib ? Rate controlled with metoprolol and systemic anticoagulation with Coumadin did continue 10. Hypertension - Blood pressure controlled, home medications continued with dose adjustment as needed 11. Depression with anxiety ? Patient is on duloxetine did continue 12. DVT prophylaxis ? On warfarin Physical Exam Narrative GENERAL: cooperative HEENT: Atraumatic; normocephalic EYES; Anicteric, Normal Conjunctiva NECK; supple, normal thyroid, RESPIRATORY: Diminished to auscultation CARDIOVASCULAR: Irregular S1-S2 GI: soft, normoactive bowel sounds, : No Renal angle tenderness; EXTREMITIES: No edema, no clubbing, MUSCULOSKELETAL: no muscle wasting NEURO: Awake; no lateralizing signs. SKIN: No Rash PSYCH; Flat affect Weight / BMI Weight Weight: 75.8 kg Body Mass Index (BMI) 26.9 ABG / Lab / Microbiology Data 01/27/23 05:06 01/27/23 05:06 Laboratory: Laboratory Results - last 24 hr 01/26/23 11:48: WBC 11.1 H, RBC 4.51, Hgb 13.8, Hct 43.5, MCV 96.5, MCH 30.6, MCHC 31.7 L, RDW Std Deviation 48.8 H, RDW Coeff of Patrice 13.8, Plt Count 185, MPV 10.7, Immature Gran % (Auto) 2.200 H, Neut % (Auto) 81.6 H, Lymph % (Auto) 7.4 L, Merrick % (Auto) 8.4, Eos % (Auto) 0.2, Baso % (Auto) 0.2, Absolute Neuts (auto) 9.0 H, Absolute Lymphs (auto) 0.82 L, Nucleated RBC % 0, PT 14.1, INR 1.1, Sodium 138, Potassium 4.1, Chloride 101, Carbon Dioxide 28.0, Anion Gap 9, BUN 25 H, Creatinine 1.22 H, Est GFR (MDRD) Af Amer 54 L, Est GFR (MDRD) Non-Af 44 L, BUN/Creatinine Ratio 20.5 H, Glucose 154 H, Calcium 9.3, Troponin I High Sens 78 H, B-Natriuretic Peptide 896.3 H 01/26/23 17:05: POC Glucose 116 H 01/26/23 17:27: Troponin I High Sens 85 H 01/26/23 22:14: POC Glucose 133 H 01/27/23 05:06: WBC 8.8, RBC 4.39, Hgb 13.2, Hct 41.8, MCV 95.2, MCH 30.1, MCHC 31.6 L, RDW Std Deviation 48.8 H, RDW Coeff of Patrice 13.8, Plt Count 160, MPV 11.1, Immature Gran % (Auto) 0.500, Neut % (Auto) 74.1 H, Lymph % (Auto) 15.7 L, Merrick % (Auto) 9.2, Eos % (Auto) 0.3, Baso % (Auto) 0.2, Absolute Neuts (auto) 6.5, Absolute Lymphs (auto) 1.38, Nucleated RBC % 0, PT 14.7, INR 1.2, Sodium 140, Potassium 3.9, Chloride 107, Carbon Dioxide 27.0, Anion Gap 6, BUN 28 H, Creatinine 1.10 H, Estim Creat Clear Calc 33.73, Est GFR (MDRD) Af Amer 60, Est GFR (MDRD) Non-Af 50 L, BUN/Creatinine Ratio 25.5 H, Glucose 143 H, Calcium 8.8 01/27/23 06:21: POC Glucose 141 H 01/27/23 11:25: POC Glucose 147 H Radiography Diagnostic Testing: Radiology Impression Chest X-Ray 01/26/23 12:04 IMPRESSION: 1. Borderline cardiomegaly and/or pericardial effusion similar to the prior examination. 2. Status post CABG. Electronically Signed: Dre Viramontes DO at 12:35 EDT , D/C Instructions Discharge Diet: 8 Cup Fluid Restriction and 2000 mg Sodium Diet Discharge Activity: Return to Normal Activity Call your doctor if you observe: Fever of 101 or Higher, Shortness of breath, Fainting spells and Chest pain Meaningful Use Info Meaningful Use Diagnoses (Choose all that apply): CHF CHF CHANDLER/ARB ordered at discharge?: No Reason CHANDLER/ARB not ordered?: Not indicated Documented LVEF (%): 60 Discharge Plan Admission Admit Date/Time: 01/26/23 13:55 Attending Provider: Bernard Matias Primary Care Provider: Susie Dang Providers: Warren Olmedo Discharge Orders/Prescriptions Prescriptions: Continued PreserVision AREDS-2 250-90-40-1 mg capsule 1 tab PO BID acyclovir 800 mg tablet 800 mg PO BID cholecalciferol (vitamin D3) 5,000 UNIT capsule 1 tab PO DAILY duloxetine 60 MG capsule,delayed release(DR/EC) 60 mg PO DAILY gabapentin 300 MG capsule 300 mg PO BID simvastatin 40 MG tablet 40 mg PO QHS arginine (L-arginine) 500 MG tablet 500 mg PO BID cyanocobalamin (vitamin B-12) 500 MCG tablet 1,000 mcg PO DAILY levothyroxine 50 MCG tablet 50 mcg PO DAILY duloxetine 30 mg capsule,delayed release(DR/EC) 30 mg PO QHS Patient Comments: takes @ PreserVision AREDS 4,296 mcg-226 mg-90 mg capsule 1 cap PO BID oxybutynin chloride 10 mg tablet extended release 24hr 10 mg PO DAILY warfarin 2 mg tablet 4 mg PO DAILY Protocol: Dose Management Condition: Friday Dose/Route: 6 mg Instruction: 3 x 2 mg tablets Condition: Friday Dose/Route: 4 mg Instruction: 2 x 2 mg tablets Condition: Friday Dose/Route: 4 mg Instruction: 2 x 2 mg tablets Condition: Friday Dose/Route: 4 mg Instruction: 2 x 2 mg tablets Condition: Dose/Route: 4 mg Instruction: 2 x 2 mg tablets Condition: Friday Dose/Route: 4 mg Instruction: 2 x 2 mg tablets Condition: Friday Dose/Route: 4 mg Instruction: 2 x 2 mg tablets Protocol Text: Adjustment Start Date: Friday01/14/23 INR Value: 2.0 INR Date: 01/14/23 Rx Instructions: 4 mg orally FRIDAY- FRIDAYand 6 (6mg) ON friday furosemide [Lasix] 40 mg tablet 40 mg PO BID Qty: 60 0RF spironolactone 25 mg tablet 12.5 mg PO DAILY Qty: 30 2RF metoprolol tartrate 50 mg tablet 50 mg PO BID Qty: 1 0RF Referrals / Follow Up: [facility],DO Susie [Primary Care Provider] - Within 1 Week Disposition Disposition (needs filled in before D/C Order can be placed): Home, Self Care Charges/Coding Visit Charges Inpatient E&M: 25784 Disch Hosp >30min
--- NOTE | 2023-01-27 13:40 | PHA.DC.MR.R ---
Pharmacy [place] Med Reconciliation Pharmacy Service has performed discharge medication reconciliation for this patient. The patient's discharge medication list was reviewed for discrepancies and discrepancies were resolved. Medications at Discharge Home Medications cholecalciferol (vitamin D3) 125 mcg (5,000 unit) capsule 1 tab PO DAILY 05/18/15 duloxetine 60 mg capsule,delayed release 60 mg PO DAILY 04/11/16 gabapentin 300 mg capsule 300 mg PO BID 10/28/16 simvastatin 40 mg tablet 40 mg PO QHS 10/28/16 arginine (L-arginine) 500 mg tablet 500 mg PO BID 10/29/17 cyanocobalamin (vitamin B-12) 500 mcg tablet 1,000 mcg PO DAILY 11/26/17 levothyroxine 50 mcg tablet 50 mcg PO DAILY 12/24/17 vit C 250 mg-vit E 90 mg-zinc 40 mg-copper 1 fu-gfmisk-hausym capsule (PreserVision AREDS-2) 1 tab PO BID 01/24/21 acyclovir 800 mg tablet 800 mg PO BID 05/16/21 metoprolol tartrate 50 mg tablet 50 mg PO BID #1 TAB 10/22/22 duloxetine 30 mg capsule,delayed release 30 mg PO QHS 11/01/22 vitamins A,C,C-fdro-pmwifw 4,296 mcg-226 mg-90 mg capsule (PreserVision AREDS) 1 cap PO BID 11/01/22 warfarin 2 mg tablet 4 mg PO DAILY 01/03/23 furosemide 40 mg tablet (Lasix) 40 mg PO BID #60 tabs 01/04/23 spironolactone 25 mg tablet 12.5 mg (1/2 x 25 mg) PO DAILY #30 tabs 01/04/23 oxybutynin chloride 10 mg tablet,extended release 24 hr 10 mg PO DAILY 01/26/23
--- NOTE | 2023-01-27 14:17 | CASEMGMT ---
Addendum entered by Brooke Gonzalez 01/27/23 15:57: Patient was accepted by [facility], patient updated. Patient and family had no further questions or concerns. PIERRE VILLAGRAN called and cancelled referral to [facility]. Addendum entered by Brooke Gonzalez 01/27/23 14:42: PIERRE VILLAGRAN updated by horace that patient would like [facility] at discharge. Discharge home planning consultant salesperson [facility] CM will continue to follow this patient and plan for a safe discharge. Original Note: PIERRE VILLAGRAN in to review preferences with patient for [facility]. Patient states she prefers [facility] at discharge. RN SPARKLE called a made referral to [facility]. They are able to accept the patient with planned start of care for tomorrow. PIERRE VILLAGRAN updated patient, patient had no further questions or concerns.
--- NOTE | 2023-01-27 14:36 | CASEMGMT ---
Discharge Planning Referral sent to [facility] via [facility]. Martha Baldwin, Discharge Planning Asst.
[2023-01-27 15:02] VITALS: BP 137/77; PULSE 65; RESP 18; TEMP 36.8; O2SAT 95
--- NOTE | 2023-01-27 15:15 | CASEMGMT ---
Discharge Planning Patient has been accepted by [facility]. RN CM updated. Martha Baldwin, Discharge Planning Asst.
--- NOTE | 2023-01-27 15:56 | CHAPLAIN ---
Type of Pastoral Visit _x__ Initial Visit ___ Follow-up Visit ___ On-call Visit ___ General Patient Visit ___ Spiritual Assessment ___ Family Conference ___ Bereavement ___ Rapid Response ___ Code Blue ___ Other (describe below) Pastoral Care Referral From _x__ Patient ___ Family ___ Nurse ___ Physician ___ Medical Record Librarian ___ Dungeon Master ___ Other (describe below) Sacrament/Intervention _x__ Active listening ___ Anointing ___ Gnosticism ___ Bereavement ___ Communion _x__ Shila exploration ___ ___ Life review _x__ Prayer ___ Reconciliation ___ Sacrament of Sick _x__ Supportive presence ___ Wedding ___ Other (describe below) Pastoral Comments patient and a sister are in the room; pt states that she is being discharged; pt says that she has had recent visits to the hospital but hopes to get better; pt is of the [employer] and has support spiritually; pt welcomes prayer and casual conversation; pt expresses thanks for the support
[2023-01-27 16:50] LABS: Bedside Glucose 112 mg/dL (74-106)
== END 2023-01-27 12:06 | disposition home health service (06) ==
LOC: ED 13:34 → PCU 13:43
PROVIDERS: Admitting Provider Family Medicine; Emergency Provider Emergency Medicine; PCP Internal Medicine; Visit Provider Internal Medicine
DX: I11.0 Hypertensive heart disease with heart failure (principal); C91.11 Chronic lymphocytic leukemia of B-cell type in remission; E11.51 Type 2 diabetes mellitus with diabetic peripheral angiopathy without gangrene; I42.1 Obstructive hypertrophic cardiomyopathy; I50.32 Chronic diastolic (congestive) heart failure; I48.0 Paroxysmal atrial fibrillation; H81.399 Other peripheral vertigo, unspecified ear; Z95.0 Presence of cardiac pacemaker; R77.8 Other specified abnormalities of plasma proteins; F41.8 Other specified anxiety disorders; G89.29 Other chronic pain; E78.5 Hyperlipidemia, unspecified; E03.9 Hypothyroidism, unspecified; I25.10 Atherosclerotic heart disease of native coronary artery without angina pectoris; Z86.16 Personal history of COVID-19; Z79.899 Other long term (current) drug therapy; Z79.01 Long term (current) use of anticoagulants; Z79.890 Hormone replacement therapy
CPT/HCPCS: 36415; 71045; 80048; 82962; 83880; 84484; 85025; 85610; 93005; 96374; 97162; 97166; 99221; 99285; A4216; G0378; J1940

== ENCOUNTER → 2023-01-31 | Outpatient (CLI) | payer MEDICARE, OTHER, SELFPAY ==
[2023-01-31 12:25] LABS: Absolute Lymphocyte Count 1.13 X10^3/uL (0.83-4.51); Absolute Neutrophil Count 6.2 X10^3/uL (2.0-7.7); Basophil# 0.01 X10^3/uL; Basophil% 0.1 % (0-1); Eosinophil# 0.04 X10^3/uL; Eosinophils% 0.5 % (0-5); Hematocrit 47.2 % (37-47); Hemoglobin 14.9 g/dL (12.0-15.0); Lymphocyte # 1.13 X10^3/ul (0.83-4.51); Lymphocyte % 13.8 % (19-41); Mean Corp Hgb Conc 31.6 g/dL (32-36); Mean Corpuscular Hgb 30.3 pg (27.0-32.0); Mean Corpuscular Volume 96.1 fL (81-99); Mean Platelet Vol. 10.7 fl (6.2-12.0); Monocyte# 0.73 X10^3/uL; Monocyte% 8.9 % (0-10); NRBC Flagged by Analyzer 0 % (0-5); Neutrophil # 6.24 X10^3/uL (2.7-7.7); Neutrophil % 76.5 % (47-70); Platelet Count 231 K/mm3 (150-450); RBC Distribution Width CV 13.5 % (11.6-14.6); RBC Distribution Width SD 47.8 fl (35.1-43.9); Red Blood Count 4.91 M/mm3 (4.2-5.4); White Blood Count 8.2 K/mm3 (4.4-11.0)
[2023-01-31 12:54] LABS: ALB/GLOB Ratio 0.9 RATIO (0.9-2.4); AST(SGOT) 16 U/L (15-37); Alanine Aminotransfer ALT/SGPT 18 U/L (13-56); Albumin, Serum 3.6 g/dL (3.2-5.0); Alkaline Phosphatase 59 U/L (45-117); Anion Gap 5 (5-15); BUN 24 mg/dL (7-18); BUN/Creat Ratio 17.8 RATIO (10-20); Calcium,Total 9.3 mg/dL (8.5-10.1); Chloride 102 mmol/L (98-107); Cholesterol 99 mg/dL (200); Creatinine, Serum 1.35 mg/dL (0.55-1.02); EST Glomerular Filtration Rate 39 mL/min (>60); Est Glom Filt Rate - Afr Amer 48 mL/min (>60); Globulin 4.1 g/dL (2.2-4.2); Glucose 136 mg/dL (74-106); High Density Lipoprotein 46 mg/dL; Potassium 4.4 mmol/L (3.5-5.1); Protein, Total 7.7 g/dL (6.4-8.2); Sodium Level 135 mmol/L (136-145); Triglycerides 119 mg/dL; Very Low Density Lipoprotein 24 mg/dL (5-40)
[2023-01-31 14:24] LABS: Hemoglobin A1c 5.8 % (3.8-5.6)
[2023-01-31 14:44] LABS: BNP,B-Type NATRIURETIC PEPTIDE 314.9 pg/mL (0-100)
== END | disposition home or self-care (01) ==
PROVIDERS: PCP Internal Medicine; Referring Provider Internal Medicine; Visit Provider Internal Medicine
DX: E11.9 Type 2 diabetes mellitus without complications (principal); I11.0 Hypertensive heart disease with heart failure; I50.9 Heart failure, unspecified; E55.9 Vitamin D deficiency, unspecified
CPT/HCPCS: 36415; 80053; 80061; 82746; 83036; 83880; 85025

== ENCOUNTER 2023-02-04 14:17 | Outpatient (RCR) | payer MEDICARE, OTHER, SELFPAY ==
[2023-01-14 12:21] LABS: Prothrombin Time (Protime)PT. 22.9 SECONDS (11.7-14.9)
[2023-01-30 10:28] LABS: International Normalized Ratio 1.5; Prothrombin Time (Protime)PT. 17.8 SECONDS (11.7-14.9)
[2023-02-04 16:25] LABS: International Normalized Ratio 2.1; Prothrombin Time (Protime)PT. 23.6 SECONDS (11.7-14.9)
== END 2023-02-04 18:00 | disposition home or self-care (01) ==
LOC: MTLAB 14:17
PROVIDERS: PCP Internal Medicine; Referring Provider Physician Assistant Medical; Visit Provider Physician Assistant Medical
DX: Z79.01 Long term (current) use of anticoagulants (principal); I48.0 Paroxysmal atrial fibrillation; I48.92 Unspecified atrial flutter
CPT/HCPCS: 36415; 85610

== ENCOUNTER → 2023-02-11 | Outpatient (CLI) | payer MEDICARE, OTHER, SELFPAY ==
[2023-02-11 11:01] LABS: International Normalized Ratio 2.5; Prothrombin Time (Protime)PT. 27.5 SECONDS (11.7-14.9)
== END | disposition home or self-care (01) ==
LOC: LABSPEC 10:43
PROVIDERS: PCP Internal Medicine; Referring Provider Internal Medicine Cardiovascular Disease; Visit Provider Internal Medicine Cardiovascular Disease
DX: I48.0 Paroxysmal atrial fibrillation (principal)
CPT/HCPCS: 85610

== ENCOUNTER → 2023-02-14 | Outpatient (CLI) | payer MEDICARE, OTHER, SELFPAY ==
[2023-02-16 08:07] LABS: Immunoglobulin G 582 mg/dL (586-1602)
== END | disposition home or self-care (01) ==
LOC: MTLAB 13:25
PROVIDERS: PCP Internal Medicine; Referring Provider Internal Medicine Medical Oncology; Visit Provider Internal Medicine Medical Oncology
DX: D80.1 Nonfamilial hypogammaglobulinemia (principal); C91.10 Chronic lymphocytic leukemia of B-cell type not having achieved remission
CPT/HCPCS: 36415; 82784

== ENCOUNTER 2023-03-11 14:40 | Outpatient (RCR) | payer MEDICARE, OTHER, SELFPAY ==
[2023-02-27 12:29] LABS: International Normalized Ratio 2.5; Prothrombin Time (Protime)PT. 27.6 SECONDS (11.7-14.9)
[2023-03-11 17:46] LABS: International Normalized Ratio 1.1; Prothrombin Time (Protime)PT. 14.3 SECONDS (11.7-14.9)
[2023-03-13 05:07] LABS: Immunoglobulin G 408 mg/dL (586-1602)
== END 2023-03-13 18:00 | disposition home or self-care (01) ==
LOC: MTLAB 14:40
PROVIDERS: Internal Medicine Medical Oncology; PCP Internal Medicine; Referring Provider Physician Assistant Medical; Visit Provider Physician Assistant Medical
DX: Z79.01 Long term (current) use of anticoagulants (principal)
CPT/HCPCS: 36415; 82784; 85610

== ENCOUNTER 2023-04-11 13:44 | Outpatient (RCR) | payer MEDICARE, OTHER, SELFPAY ==
[2023-03-18 16:07] LABS: ALB/GLOB Ratio 1.3 RATIO (0.9-2.4); AST(SGOT) 14 U/L (15-37); Alanine Aminotransfer ALT/SGPT 18 U/L (13-56); Albumin, Serum 3.9 g/dL (3.2-5.0); Alkaline Phosphatase 63 U/L (45-117); Anion Gap 4 (5-15); BUN 31 mg/dL (7-18); BUN/Creat Ratio 22.8 RATIO (10-20); Calcium,Total 8.9 mg/dL (8.5-10.1); Chloride 103 mmol/L (98-107); Creatinine, Serum 1.36 mg/dL (0.55-1.02); EST Glomerular Filtration Rate 39 mL/min (>60); Est Glom Filt Rate - Afr Amer 47 mL/min (>60); Globulin 2.9 g/dL (2.2-4.2); Glucose 107 mg/dL (74-106); Potassium 4.5 mmol/L (3.5-5.1); Protein, Total 6.8 g/dL (6.4-8.2); Sodium Level 138 mmol/L (136-145)
[2023-03-18 16:11] LABS: Prothrombin Time (Protime)PT. 22.9 SECONDS (11.7-14.9)
[2023-04-02 12:28] LABS: International Normalized Ratio 3.2; Prothrombin Time (Protime)PT. 33.4 SECONDS (11.7-14.9)
[2023-04-11 15:34] LABS: International Normalized Ratio 2.4; Prothrombin Time (Protime)PT. 26.6 SECONDS (11.7-14.9)
[2023-04-11 15:47] LABS: ALB/GLOB Ratio 1.1 RATIO (0.9-2.4); AST(SGOT) 19 U/L (15-37); Alanine Aminotransfer ALT/SGPT 20 U/L (13-56); Albumin, Serum 3.8 g/dL (3.2-5.0); Alkaline Phosphatase 55 U/L (45-117); Anion Gap 5 (5-15); BUN 34 mg/dL (7-18); BUN/Creat Ratio 24.3 RATIO (10-20); Calcium,Total 9.9 mg/dL (8.5-10.1); Chloride 104 mmol/L (98-107); EST Glomerular Filtration Rate 38 mL/min (>60); Est Glom Filt Rate - Afr Amer 46 mL/min (>60); Globulin 3.4 g/dL (2.2-4.2); Glucose 130 mg/dL (74-106); Protein, Total 7.2 g/dL (6.4-8.2); Sodium Level 138 mmol/L (136-145)
== END 2023-04-13 18:00 | disposition home or self-care (01) ==
LOC: MTLAB 13:44
PROVIDERS: PCP Internal Medicine; Referring Provider Physician Assistant Medical; Visit Provider Physician Assistant Medical
DX: Z79.01 Long term (current) use of anticoagulants (principal); I48.0 Paroxysmal atrial fibrillation
CPT/HCPCS: 36415; 80053; 85610

== ENCOUNTER 2023-04-29 15:43 | Outpatient (RCR) | payer MEDICARE, OTHER, SELFPAY ==
[2023-04-15 15:22] LABS: International Normalized Ratio 3.3; Prothrombin Time (Protime)PT. 34.1 SECONDS (11.7-14.9)
[2023-04-29 17:56] LABS: International Normalized Ratio 2.3; Prothrombin Time (Protime)PT. 25.7 SECONDS (11.7-14.9)
== END 2023-04-29 18:00 | disposition home or self-care (01) ==
LOC: MTLAB 15:43
PROVIDERS: PCP Internal Medicine; Referring Provider Physician Assistant Medical; Visit Provider Physician Assistant Medical
DX: I48.0 Paroxysmal atrial fibrillation; Z79.01 Long term (current) use of anticoagulants; I48.92 Unspecified atrial flutter
CPT/HCPCS: 36415; 85610

== ENCOUNTER 2023-05-07 15:12 | Inpatient (IN) | payer MEDICARE, OTHER, SELFPAY ==
[2023-05-07] VITALS (8 sets, daily range): BP systolic 134–152; BP diastolic 63–70; PULSE 59–75; RESP 16–18; TEMP 36.2–36.5; O2SAT 96–99; BMI 26.9; BMI 25.9
--- NOTE | 2023-05-07 16:52 | ED.RN ---
called Jenny, niece. pt has no family with her. Jenny reports Anamika, sister should be coming to be with patient. pt has weakness to RLE. niece report this comes and goes. had fall around 1200 today. niece also reports facial droop is normal for her. also has hx of polio.
--- NOTE | 2023-05-07 17:22 | CT_ITS ---
STUDY: CT BRAIN WITHOUT CONTRAST REASON FOR EXAM: Female, 87 years old. Trauma RADIATION DOSAGE (If Supplied By Facility): CTDIvol = ( 47.06 ) mGy, DLP = ( 925.62 ) mGycm TECHNIQUE: Transaxial CT imaging of the brain was performed without administration of intravenous contrast material. Individualized dose optimization techniques were used for this CT. COMPARISON: August 16, 2021 FINDINGS: Normal soft tissue structures. Normal calvarium. There is moderate cerebral atrophy with widening of the extra-axial spaces and ventricular dilatation. There are areas of decreased attenuation within the white matter tracts of the supratentorial brain, consistent with microvascular disease changes. Normal basal ganglia and thalami. Normal brainstem. Normal cerebellum. There is no intracranial hemorrhage. There are no findings of an acute ischemic infarction. Normal visualized paranasal sinuses. CT/Brain/Head without Contrast IMPRESSION: Chronic involutional changes of the brain. Electronically Signed: Agustin Vivas MD at 19:01 EST ,
--- NOTE | 2023-05-07 17:22 | CT_ITS ---
STUDY: CT CERVICAL SPINE WITHOUT CONTRAST REASON FOR EXAM: Female, 87 years old. TRAUMA RADIATION DOSAGE (If Supplied By Facility): CTDIvol = ( 18.38 ) mGy, DLP = ( 363.31 ) mGycm TECHNIQUE: High resolution transaxial imaging was performed without contrast material. Sagittal and coronal images were reconstructed. Individualized dose optimization techniques were used for this CT. COMPARISON: None FINDINGS: Normal craniovertebral junction. Normal anterior atlantoaxial articulation. Normal odontoid process. There is straightening of the normal cervical lordosis. There is no acute fracture. Normal vertebral bodies and posterior osseous elements. C2-3: Normal endplates. Normal disc height and morphology. Mild facet spurring on the left. Normal central canal and intervertebral neuroforamina. C3-4: Disc space narrowing. Mild spurring. Mild facet spurring. No canal stenosis. Mild right foraminal narrowing. C4-5: Disc space narrowing. Disc bulge and spurring to the right. Mild facet spurring. No canal stenosis. Neural foramina are patent. C5-6: Disc space narrowing. Mild spurring. Mild facet spurring. No canal stenosis. Neural foramina are patent. C6-7: Normal endplates. Normal disc height and morphology. Normal central canal and intervertebral neuroforamina. C7-T1: Normal endplates. Normal disc height and morphology. Normal central canal and intervertebral neuroforamina. Normal visualized soft tissue structures. There are atherosclerotic calcifications. CT/Spine Cervical without Contras IMPRESSION: Multilevel degenerative changes, as described above. Electronically Signed: Agustin Vivas MD at 19:02 [facility] ,
--- NOTE | 2023-05-07 17:24 | EDS_ITS ---
HPI History of Present Illness Chief Complaint: Weakness Informant: patient Onset/Context/Timing Onset: Today Narrative Narrative: Patient presents secondary to weakness and fall. Patient states that she has had problems with right leg weakness since last evening. She has had this intermittently in the past and states it is always her right leg gets involved. She did fall today when her leg gave out on her and hit her head on her walker. She did not get knocked out. She had a headache earlier today that is now resolved. Patient is on Coumadin. [facility] Medical History Abnormal urine finding Atherosclerosis of coronary artery bypass graft without angina pectoris Atherosclerotic heart disease of [place] coronary artery without angina pectoris Bronchitis Chronic diastolic (congestive) heart failure Chronic lymphoid leukemia Complete heart block COVID-19 DM (diabetes mellitus), type 2 with peripheral vascular complications Essential (primary) hypertension Gout HLD (hyperlipidemia) Hypogammaglobulinemia, acquired Left bundle branch block (LBBB) Macular degeneration Mitral valve annular calcification Nonrheumatic mitral (valve) insufficiency Nonsustained ventricular tachycardia Obstructive hypertrophic cardiomyopathy Other specified transient cerebral ischemias Peripheral edema Proteinuria Skin tear of left upper extremity Uncontrolled hypertension URI (upper respiratory infection) Urinary frequency Home Medications cholecalciferol (vitamin D3) 125 mcg (5,000 unit) capsule 1 tab PO DAILY 05/18/15 [History Last Taken Unknown] duloxetine 60 mg capsule,delayed release 60 mg PO DAILY 04/11/16 [History Last Taken Unknown] gabapentin 300 mg capsule 300 mg PO BID 10/28/16 [History Last Taken 12/21/21] simvastatin 40 mg tablet 40 mg PO QHS 10/28/16 [History Last Taken Unknown] arginine (L-arginine) 500 mg tablet 500 mg PO BID 10/29/17 [History Last Taken Unknown] cyanocobalamin (vitamin B-12) 500 mcg tablet 1,000 mcg PO DAILY 11/26/17 [History Last Taken Unknown] levothyroxine 50 mcg tablet 50 mcg PO DAILY 12/24/17 [History Last Taken 12/21/21] vit C 250 mg-vit E 90 mg-zinc 40 mg-copper 1 pm-vcnhzl-zvppci capsule (PreserVision AREDS-2) 1 tab PO BID 01/24/21 [History Last Taken Unknown] acyclovir 800 mg tablet 800 mg PO BID 05/16/21 [History Last Taken Unknown] metoprolol tartrate 50 mg tablet 50 mg PO BID #1 TAB 10/22/22 [Rx Last Taken Unknown] duloxetine 30 mg capsule,delayed release 30 mg PO QHS 11/01/22 [History Last Taken Unknown] vitamins A,C,E-zgei-wnofxg 4,296 mcg-226 mg-90 mg capsule (PreserVision AREDS) 1 cap PO BID 11/01/22 [History Last Taken Unknown] warfarin 2 mg tablet 4 mg PO DAILY 01/03/23 [History Last Taken 01/02/23] spironolactone 25 mg tablet 12.5 mg (1/2 x 25 mg) PO DAILY #30 tabs 01/04/23 [Rx Last Taken Unknown] furosemide 40 mg tablet (Lasix) 40 mg PO BID #180 tabs 01/30/23 [Rx Last Taken Unknown] Allergy/AdvReac Type Severity Reaction Status Date / Time amoxicillin trihydrate AdvReac Severe Vomiting Verified 05/07/23 15:13 [From Augmentin] lidocaine AdvReac Severe Other Verified 05/07/23 15:13 Penicillins AdvReac Severe Vomiting Verified 05/07/23 15:13 potassium clavulanate AdvReac Severe Vomiting Verified 05/07/23 15:13 [From Augmentin] Family History Father , age 86 CAD (coronary artery disease) Sister Asthma Surgical History H/O coronary artery bypass surgery (01/15/11) History of appendectomy History of cholecystectomy History of coronary artery stent placement (06/17/11) History of electrophysiologic study (01/21/11) History of hysterectomy History of mitral valve repair (01/15/11) History of tonsillectomy nerve ablation for pain management Presence of permanent cardiac pacemaker (12/21/21) Social History household members: family housing: house Smoking Status: Never smoker alcohol intake: never substance use type: does not use caffeine: Yes Type: coffee Number of servings: 2 what type of physical activity do you participate in: walking and weight training frequency: 5-6 times per week ROS ROS ED Constitutional Constitutional ED: Denies chills or fever(s) Eyes Eyes: Denies discharge from eye(s) ENT ENT ED: Denies discharge from eye(s), rhinorrhea or sore throat Cardiovascular Cardiovascular: Denies chest pain or palpitations Respiratory/Chest Respiratory/Chest: Denies cough or dyspnea Gastrointestinal Gastrointestinal: Denies abdominal pain, nausea or vomiting Genitourinary Genitourinary ED: Denies dysuria Musculoskeletal Musculoskeletal: Denies back pain or extremity pain Integumentary Denies Abrasions or rash Neurologic Neurologic: Denies headache(s) or weakness Psychiatric Psychiatric: Denies anxiety or depression Allergic/Immunologic Allergic/Immunologic ED: Denies lip swelling or urticaria EXAM Physical Exam Const Vital Signs: 05/07/23 15:13 05/07/23 16:38 05/07/23 16:41 Temperature 97.7 F L Temperature Source Temporal Pulse Rate 75 61 Respiratory Rate 18 18 Respiratory Effort Normal Respiratory Pattern Normal Blood Pressure 134/70 H Blood Pressure Mean 91 Pulse Ox 99 96 Oxygen Delivery Method Room Air Room Air 05/07/23 18:53 Temperature Temperature Source Pulse Rate 62 Respiratory Rate Respiratory Effort Respiratory Pattern Blood Pressure 144/66 H Blood Pressure Mean 92 Pulse Ox Oxygen Delivery Method Positive well nourished and well developed General Appearance ED: well developed HEENT Reports moist mucous membranes Eyes EOMs intact bilaterally Neck no lymphadenopathy Chest Wall inspection of chest normal and palpation of chest normal Resp normal respiratory effort and clear to auscultation bilaterally Cardio regular rate and regular rhythm GI non-tender Palpation: soft Extremity normal to inspection Extremity Narrative: Patient able to hold both legs up against gravity. She does have some drift noted to the right leg but it does not hit the bed. Small scab noted to the lateral aspect of the right fifth toe. Neuro no sensory deficits noted MDM MDM MDM Narrative Medical decision making narrative: Patient placed on cardiac cath tech. IV line initiated. Labwork obtained to evaluate for leukocytosis, anemia, and electrolyte derangement. EKG obtained to evaluate for cardiac arrhythmia/ischemia. Chest x-ray obtained to evaluate for acute lung pathology, cardiac size, or mediastinal abnormality. Patient sent for CT imaging of the brain and C-spine given her fall. History & Record Review Discussion w/independent historian: Patient and Family Additional record(s) reviewed:: Prior outpatient record, Prior ED visit and Prior labs Lab Data Attestation: I reviewed the patient's lab results. Labs: Laboratory Results - last 24 hr 05/07/23 05/07/23 15:00 18:10 WBC 8.5 RBC 4.58 Hgb 14.4 Hct 44.9 MCV 98.0 MCH 31.4 MCHC 32.1 RDW Std Deviation 50.7 H RDW Coeff of Patrice 14.2 Plt Count 217 MPV 11.1 Immature Gran % (Auto) 0.600 Neut % (Auto) 67.9 Lymph % (Auto) 21.4 [place] % (Auto) 9.1 Eos % (Auto) 0.8 Baso % (Auto) 0.2 Absolute Neuts (auto) 5.8 Absolute Lymphs (auto) 1.81 Nucleated RBC % 0 PT Cancelled 13.6 INR Cancelled 1.0 Sodium 136 Potassium 4.2 Chloride 104 Carbon Dioxide 30.0 Anion Gap 2 L BUN 41 H Creatinine 1.40 H Estim Creat Clear Calc 30.43 Est GFR (MDRD) Af Amer 46 L Est GFR (MDRD) Non-Af 38 L BUN/Creatinine Ratio 29.3 H Glucose 103 Calcium 9.7 Troponin I High Sens 1098 H* 1338 H* Urine Color Yellow Urine Clarity Sl. Cloudy Urine pH 6.0 Ur Specific [place] 1.010 Urine Protein Negative Urine Glucose (UA) Normal Urine Ketones Negative Urine Occult Blood 10 H Urine Nitrite Positive H Urine Bilirubin Negative Urine Urobilinogen Normal Ur Leukocyte Esterase 500 H Urine RBC 0-5 SEEN Urine WBC 25-50 SEEN Ur Squamous Epith Cells 0-5 SEEN Urine Bacteria 2+ Urine Mucus RARE Radiography Chest X-Ray - ED: 1 View, Read by ED Physician, Chronic Changes and No Infiltrates Diagnostic Testing: Clinical Impression(s) from Imaging Studies Brain CT 05/07/23 17:22 IMPRESSION: Chronic involutional changes of the brain. Electronically Signed: Agustin Vivas MD at 19:01 EST , Cervical Spine CT 05/07/23 17:22 IMPRESSION: Multilevel degenerative changes, as described above. Electronically Signed: Agustin Vivas MD at 19:02 EST , Chest X-Ray 05/07/23 18:00 IMPRESSION: Degenerative changes, as described above. No demonstrated acute cardiopulmonary process. Electronically Signed: Agustin Vivas MD at 18:55 EST , EKG Initial EKG: Attestation: I personally reviewed and interpreted this EKG as follows: Interpretation: - (Paced rhythm at 60 bpm. No acute ischemia.) Treatment and Re-Evaluation :: CBC was normal white count 8.5 with a hemoglobin of 14.4. Normal differential. INR is subtherapeutic at 1.0. Chemistry studies reveal a BUN of 41 and a creatinine 1.40. Glucose is normal at 103. Initial troponin is elevated at 1098 with repeat of 1338. Urinalysis does reveal evidence of infection with 25- 50 white cells, 2+ bacteria, positive nitrites. Portable chest x-ray per my interpretation reveals chronic changes with no evidence of focal infiltrate. Radiology interpretation reviewed and agrees. On repeat examination patient resting comfortably. She continues to deny any chest pain or shortness of breath. She will be given antibiotics for her UTI and a urine culture has been sent. I will speak with hospitalist regarding admission. Discharge Plan Triage Chief Complaint: Weakness ED Provider: Rosalind Rubio Dx/Rx/DC Orders Clinical Impression: Subtherapeutic international normalized ratio (INR), UTI (urinary tract infection), Non-ST elevation [place] (NSTEMI), Weakness Prescriptions: No Action PreserVision AREDS-2 250-90-40-1 mg capsule 1 tab PO BID acyclovir 800 mg tablet 800 mg PO BID cholecalciferol (vitamin D3) 5,000 UNIT capsule 1 tab PO DAILY duloxetine 60 MG capsule,delayed release(DR/EC) 60 mg PO DAILY gabapentin 300 MG capsule 300 mg PO BID simvastatin 40 MG tablet 40 mg PO QHS arginine (L-arginine) 500 MG tablet 500 mg PO BID cyanocobalamin (vitamin B-12) 500 MCG tablet 1,000 mcg PO DAILY levothyroxine 50 MCG tablet 50 mcg PO DAILY duloxetine 30 mg capsule,delayed release(DR/EC) 30 mg PO QHS Patient Comments: takes @ HS PreserVision AREDS 4,296 mcg-226 mg-90 mg capsule 1 cap PO BID warfarin 2 mg tablet 4 mg PO DAILY Protocol: Dose Management Condition: Friday Dose/Route: 4 mg Instruction: 2 x 2 mg tablets Condition: Friday Dose/Route: 4 mg Instruction: 2 x 2 mg tablets Condition: Friday Dose/Route: 4 mg Instruction: 2 x 2 mg tablets Condition: Friday Dose/Route: 4 mg Instruction: 2 x 2 mg tablets Condition: Dose/Route: 4 mg Instruction: 2 x 2 mg tablets Condition: Friday Dose/Route: 4 mg Instruction: 2 x 2 mg tablets Condition: Friday Dose/Route: 4 mg Instruction: 2 x 2 mg tablets Protocol Text: Adjustment Start Date: Friday04/30/23 INR Value: 2.3 INR Date: 04/29/23 Rx Instructions: 4 mg orally FRIDAY- FRIDAYand 6 (6mg) ON friday spironolactone 25 mg tablet 12.5 mg PO DAILY Qty: 30 2RF metoprolol tartrate 50 mg tablet 50 mg PO BID Qty: 1 0RF furosemide [Lasix] 40 mg tablet 40 mg PO BID Qty: 180 3RF Primary Care Provider: Susie Dang Referrals: Susie Dang DO [Primary Care Provider] - Disposition Disposition: Acute Care Hospital [facility]
[2023-05-07 17:33] LABS: Absolute Lymphocyte Count 1.81 X10^3/uL (0.83-4.51); Absolute Neutrophil Count 5.8 X10^3/uL (2.0-7.7); Basophil# 0.02 X10^3/uL; Basophil% 0.2 % (0-1); Eosinophil# 0.07 X10^3/uL; Eosinophils% 0.8 % (0-5); Hematocrit 44.9 % (37-47); Hemoglobin 14.4 g/dL (12.0-15.0); Lymphocyte # 1.81 X10^3/ul (0.83-4.51); Lymphocyte % 21.4 % (19-41); Mean Corp Hgb Conc 32.1 g/dL (32-36); Mean Corpuscular Hgb 31.4 pg (27.0-32.0); Mean Platelet Vol. 11.1 fl (6.2-12.0); Monocyte# 0.77 X10^3/uL; Monocyte% 9.1 % (0-10); NRBC Flagged by Analyzer 0 % (0-5); Neutrophil # 5.75 X10^3/uL (2.7-7.7); Neutrophil % 67.9 % (47-70); Platelet Count 217 K/mm3 (150-450); RBC Distribution Width CV 14.2 % (11.6-14.6); RBC Distribution Width SD 50.7 fl (35.1-43.9); Red Blood Count 4.58 M/mm3 (4.2-5.4); White Blood Count 8.5 K/mm3 (4.4-11.0)
--- NOTE | 2023-05-07 18:00 | RAD_ITS ---
STUDY: X-RAY CHEST REASON FOR EXAM: Female, 87 years old. Fall TECHNIQUE: Single AP portable view of the chest. COMPARISON: January 26, 2023 FINDINGS: Dual chamber pacemaker device on the left. There are monitoring devices. The lungs are clear and expanded. There is right midlung granuloma. There is no demonstrated pleural abnormality. Sternal cerclage wires are present from a prior sternotomy. Normal mediastinum and miguel. Normal visualized pulmonary arteries. There is atherosclerotic calcification of the aortic arch with tortuosity. There is demineralization of the osseous structures. Normal visualized ribs, clavicles, and shoulders. There is no demonstrated abnormality of the visualized soft tissue structures of the upper abdomen. RAD/Chest 1 View (Portable) IMPRESSION: Degenerative changes, as described above. No demonstrated acute cardiopulmonary process. Electronically Signed: Agustin Vivas MD at 18:55 EST ,
[2023-05-07 18:02] LABS: Anion Gap 2 (5-15); BUN 41 mg/dL (7-18); BUN/Creat Ratio 29.3 RATIO (10-20); Calcium,Total 9.7 mg/dL (8.5-10.1); Chloride 104 mmol/L (98-107); EST Glomerular Filtration Rate 38 mL/min (>60); Est Glom Filt Rate - Afr Amer 46 mL/min (>60); Estimated Creatinine Clearance 30.43 ml/min; Glucose 103 mg/dL (74-106); Potassium 4.2 mmol/L (3.5-5.1); Sodium Level 136 mmol/L (136-145); Troponin-I HS 1098 pg/mL (3.0-54.0)
[2023-05-07 18:41] LABS: Color, Urine Yellow (Yellow); Glucose, Dipstick Normal (Normal); Ketone-Dipstick Negative (Negative); Leukocyte Esterase-Dipstick 500 /ul (Negative); Nitrite-Dipstick Positive (Negative); Occult Blood-Urine 10 /ul (Negative); Protein-Dipstick Negative (Negative); Urine Bilirubin Dipstick Negative (Negative); Urine Clarity Sl. Cloudy (Clear); Urine Urobilinogen Normal (Normal)
[2023-05-07 18:42] LABS: Prothrombin Time (Protime)PT. 13.6 SECONDS (11.7-14.9)
[2023-05-07 18:47] LABS: Bacteria 2+ /hpf (None Seen); Mucous, Urine RARE /hpf (<or=2+); Red Blood Cells-Urine 0-5 SEEN /hpf (0-5); Squamous Epithelial Cells - UA 0-5 SEEN /hpf (5-10); White Blood Cells 25-50 SEEN /hpf (0-5)
[2023-05-07 18:53] LABS: Troponin-I HS 1338 pg/mL (3.0-54.0)
[2023-05-07] MEDS: Ceftriaxone 1 GM/50 ML BAG IV (19:50)
--- NOTE | 2023-05-07 20:00 | PCM.HP.STD ---
HPI - General General Date of Admission: 05/07/23 Date of Service: 05/07/23 Chief Complaint: Weakness, debility, falls HPI Narrative The patient is an 87 y/o F w/ PMHx: PAF/Flutter, CKD stage III unclear subtype, Anxiety and Depression, Chronic HFpEF, Hx Complete HB s/p pacemaker status, Diabetes mellitus type II, HTN, HLD, Obstructive Hypertrophic Cardiomyopathy, Hx TIA, CLL, Valvular Heart Disease s/p MV repair, CAD s/p CABG and PCI who presents to the [facility] ED on 05/07/23 with history of significant debility and weakness with fall with problems with her right lower extremity which is occurred in the past noting that her leg gave out and unfortunately when she fell she her head on the walker with no loss of consciousness but she did have a mild headache which is since resolved on Coumadin prompting eventual ED evaluation to be cautious. She denies any dysuria or suprapubic discomfort but does states she has had urinary frequency recently. She does state that she is taking her Coumadin and that she has an outside nurse who visits and helps with medications and this was also verified with him. She notes 1 to 2 weeks prior her INR was 2.5. Workup in the ED included T97.7, heart rate 75, BP 134/70, respiratory rate 18, 99% on room air, CBC with WBC 8.5, hemoglobin 14.4, platelet 271 without marked shift, unremarkable coags, BMP with BUN/creatinine 41/1.40, troponin initial 1098 with most recent repeat 1338, urinalysis with positive nitrite, leukocyte Estrace 500 with urine WBCs 25-50 with 2+ urine bacteria, urine culture pending per ED, CT brain with chronic involutional changes, CT cervical spine with multilevel degenerative changes, chest x-ray with degenerative changes with no acute cardiopulmonary findings, EKG in ED w/ paced without evidence of ischemia. In the ED patient ministered IV Rocephin therapy. Discussed current presentation with ED physician requested heparin drip and full-strength aspirin therapy also be initiated. Repeat INR pending given unclear if she is actually taking the Coumadin. [facility] Medical History Abnormal urine finding Atherosclerosis of coronary artery bypass graft without angina pectoris Atherosclerotic heart disease of [place] coronary artery without angina pectoris Bronchitis Chronic diastolic (congestive) heart failure Chronic lymphoid leukemia Complete heart block COVID-19 DM (diabetes mellitus), type 2 with peripheral vascular complications Essential (primary) hypertension Gout HLD (hyperlipidemia) Hypogammaglobulinemia, acquired Left bundle branch block (LBBB) Macular degeneration Mitral valve annular calcification Nonrheumatic mitral (valve) insufficiency Nonsustained ventricular tachycardia Obstructive hypertrophic cardiomyopathy Other specified transient cerebral ischemias Peripheral edema Proteinuria Skin tear of left upper extremity Uncontrolled hypertension URI (upper respiratory infection) Urinary frequency Home Medications cholecalciferol (vitamin D3) 125 mcg (5,000 unit) capsule 1 tab PO DAILY 05/18/15 [History Last Taken Unknown] duloxetine 60 mg capsule,delayed release 60 mg PO DAILY 04/11/16 [History Last Taken Unknown] gabapentin 300 mg capsule 300 mg PO TID 10/28/16 [History Last Taken 12/21/21] simvastatin 40 mg tablet 40 mg PO QHS 10/28/16 [History Last Taken Unknown] arginine (L-arginine) 500 mg tablet 500 mg PO BID 10/29/17 [History Last Taken Unknown] cyanocobalamin (vitamin B-12) 500 mcg tablet 1,000 mcg PO DAILY 11/26/17 [History Last Taken Unknown] levothyroxine 50 mcg tablet 50 mcg PO DAILY 12/24/17 [History Last Taken 12/21/21] vit C 250 mg-vit E 90 mg-zinc 40 mg-copper 1 [id number] capsule (PreserVision AREDS-2) 1 tab PO BID 01/24/21 [History Last Taken Unknown] acyclovir 800 mg tablet 800 mg PO BID 05/16/21 [History Last Taken Unknown] metoprolol tartrate 50 mg tablet 50 mg PO BID #1 TAB 10/22/22 [Rx Last Taken Unknown] duloxetine 30 mg capsule,delayed release 30 mg PO QHS 11/01/22 [History Last Taken Unknown] warfarin 2 mg tablet 4 mg PO DAILY 01/03/23 [History Last Taken 01/02/23] spironolactone 25 mg tablet 12.5 mg (1/2 x 25 mg) PO DAILY #30 tabs 01/04/23 [Rx Last Taken Unknown] furosemide 40 mg tablet (Lasix) 40 mg PO BID #180 tabs 01/30/23 [Rx Last Taken Unknown] oxycodone 5 mg tablet 5 mg PO DAILY PRN PRN pain 05/07/23 [History Last Taken Unknown] Allergy/AdvReac Type Severity Reaction Status Date / Time amoxicillin trihydrate AdvReac Severe Vomiting Verified 05/07/23 15:13 [From Augmentin] lidocaine AdvReac Severe Other Verified 05/07/23 15:13 Penicillins AdvReac Severe Vomiting Verified 05/07/23 15:13 potassium clavulanate AdvReac Severe Vomiting Verified 05/07/23 15:13 [From Augmentin] Family History (Updated 05/07/23 @ 20:[address] Ana Mccurdy MD) Father , age 86 CAD (coronary artery disease) Sister Asthma Mother Valvular heart disease Surgical History (Updated 05/07/23 @ 20:[address] Ana Mccurdy MD) H/O coronary artery bypass surgery (01/15/11) History of appendectomy History of cholecystectomy History of coronary artery stent placement (06/17/11) History of electrophysiologic study (01/21/11) History of hysterectomy History of mitral valve repair (01/15/11) History of tonsillectomy nerve ablation for pain management Presence of permanent cardiac pacemaker (12/21/21) Social History household members: family housing: house Smoking Status: Never smoker alcohol intake: never substance use type: does not use caffeine: Yes Type: coffee Number of servings: 2 what type of physical activity do you participate in: walking and weight training frequency: 5-6 times per week ROS ROS Narrative Admission Review of Systems: CONSTITUTIONAL: No weight loss, fever, chills, + weakness or fatigue. HEENT: Eyes: No visual loss, blurred vision, double vision or yellow sclerae. Ears, Nose, Throat: No hearing loss, sneezing, congestion, runny nose or sore throat. SKIN: No rash or itching, lesions, wounds except + chronic significant extremity very staged ecchymoses, staged abrasions. CARDIOVASCULAR: No chest pain, chest pressure or chest discomfort, palpitations, edema, orthopnea, syncopal events. RESPIRATORY: No shortness of breath, cough or sputum, wheezing, hemoptysis. GASTROINTESTINAL: No anorexia, nausea, vomiting or diarrhea, abdominal pain, melena, BRBPR. GENITOURINARY: No dysuria, frequency, urgency or retention. NEUROLOGICAL: + Recent falls with mild headache now improved. No dizziness, syncope, paralysis, ataxia, numbness or tingling in the extremities, focal weakness, change in bowel or bladder control, seizure. MUSCULOSKELETAL: + muscle, back pain, joint pain or stiffness. HEMATOLOGIC: No anemia. Easy bleeding/bruising. LYMPHATICS: No enlarged nodes. No history of splenectomy. PSYCHIATRIC: + history of depression/anxiety. ENDOCRINOLOGIC: No reports of sweating, cold or heat intolerance. No polyuria or polydipsia. ALLERGIES: No history of asthma, hives, eczema or rhinitis. Vital Signs Vital Signs Vital Signs: 05/07/23 15:13 05/07/23 16:38 05/07/23 16:41 Temperature 97.7 F L Temperature Source Temporal Pulse Rate 75 61 Respiratory Rate 18 18 Respiratory Effort Normal Respiratory Pattern Normal Blood Pressure 134/70 H Blood Pressure Mean 91 Pulse Ox 99 96 Oxygen Delivery Method Room Air Room Air 05/07/23 18:53 05/07/23 19:53 Temperature 97.7 F L Temperature Source Pulse Rate 62 60 Respiratory Rate 17 Respiratory Effort Respiratory Pattern Blood Pressure 144/66 H 150/70 H Blood Pressure Mean 92 96 Pulse Ox 99 Oxygen Delivery Method Weight Weight: 171 lb 8.314 oz Body Mass Index (BMI) 26.9 Physical Exam Narrative Physical Examination: General: Awake, alert, oriented x 3 and cooperative, seated upright in the ED bed, fatigued otherwise no acute complaints. Skin: Normal color, normal turgor, no icterus, no cyanosis except for significant very staged ecchymoses to the extremities, occasional. HEENT: AT/NC, EOMI, PERRLA, mildly dry MM, no carotid bruits or JVD noted. Lungs: Diminished, moderate effort, > decrease BL bases, no rales, ronchi or wheezing. Heart: Regular rate and rhythm/paced; no gallop, rub audible, +SM. Abdomen: Soft, overweight, NTTP, ND, mildly hyperactive BS, no HSM. Extremities: No cyanosis, no clubbing, see skin, mild ankle to distal gandara not markedly pitting edema. Neurological: Patient awake, alert, oriented as noted, cognitive function appears baseline intact; pupils equally reactive to light and accommodation, cranial nerves grossly normal, moving all 4 extremities, BL LE difficulties with leg raising with discomfort to hips reported per patient, chronic issues she notes with RLE, strength moderately to severely globally decreased. Psychiatric: Affect appears flat, fatigued, no acute evidence of depressive or anxiety feelings. Results Lab / Micro Data 05/07/23 15:00 05/07/23 15:00 Labs: Laboratory Results - last 24 hr 05/07/23 15:00: WBC 8.5, RBC 4.58, Hgb 14.4, Hct 44.9, MCV 98.0, MCH 31.4, MCHC 32.1, RDW Std Deviation 50.7 H, RDW Coeff of Patrice 14.2, Plt Count 217, MPV 11.1, Immature Gran % (Auto) 0.600, Neut % (Auto) 67.9, Lymph % (Auto) 21.4, Dickinson % (Auto) 9.1, Eos % (Auto) 0.8, Baso % (Auto) 0.2, Absolute Neuts (auto) 5.8, Absolute Lymphs (auto) 1.81, Nucleated RBC % 0, PT Cancelled, INR Cancelled, Sodium 136, Potassium 4.2, Chloride 104, Carbon Dioxide 30.0, Anion Gap 2 L, BUN 41 H, Creatinine 1.40 H, Estim Creat Clear Calc 30.43, Est GFR (MDRD) Af Amer 46 L, Est GFR (MDRD) Non-Af 38 L, BUN/Creatinine Ratio 29.3 H, Glucose 103, Calcium 9.7, Troponin I High Sens 1098 H* 05/07/23 18:10: PT 13.6, INR 1.0, Troponin I High Sens 1338 H*, Urine Color Yellow, Urine Clarity Sl. Cloudy, Urine pH 6.0, Ur Specific [place] 1.010, Urine Protein Negative, Urine Glucose (UA) Normal, Urine Ketones Negative, Urine Occult Blood 10 H, Urine Nitrite Positive H, Urine Bilirubin Negative, Urine Urobilinogen Normal, Ur Leukocyte Esterase 500 H, Urine RBC 0-5 SEEN, Urine WBC 25-50 SEEN, Ur Squamous Epith Cells 0-5 SEEN, Urine Bacteria 2+, Urine Mucus RARE Imagaing Radiology Impression Brain CT 05/07/23 17:22 IMPRESSION: Chronic involutional changes of the brain. Electronically Signed: Agustin Vivas MD at 19:01 EST Reading Location ID and State: [id number] [place] [address] , Service support , Cervical Spine CT 05/07/23 17:22 IMPRESSION: Multilevel degenerative changes, as described above. Electronically Signed: Agustin Vivas MD at 19:02 EST Reading Location ID and State: [id number] [place] [address] , Service support , Chest X-Ray 05/07/23 18:00 IMPRESSION: Degenerative changes, as described above. No demonstrated acute cardiopulmonary process. Electronically Signed: Agustin Vivas MD at 18:55 EST Reading Location ID and State: [address] [place] [address] , Service support , Assessment & Plan Assessment/Plan (1) Non-ST elevation NC (NSTEMI): (2) UTI (urinary tract infection): PLAN: Plan The patient is an 87 y/o F w/ PMHx: PAF/Flutter, CKD stage III unclear subtype, Anxiety and Depression, Chronic HFpEF, Hx Complete HB s/p pacemaker status, Diabetes mellitus type II, HTN, HLD, Obstructive Hypertrophic Cardiomyopathy, Hx TIA, CLL, Valvular Heart Disease s/p MV repair, CAD s/p CABG and PCI who presents to the [facility] ED on 05/07/23 with history of significant debility and weakness with fall with problems with her right lower extremity which is occurred in the past noting that her leg gave out and unfortunately when she fell she her head on the walker with no loss of consciousness but she did have a mild headache which is since resolved on Coumadin prompting eventual ED evaluation to be cautious. #1. Acute NSTEMI (reports fatigue): EKG in ED w/ paced without evidence of ischemia, CXR w/ no acute cardiopulmonary findings. Trop elevated, 1098 with repeat delta 1338. Will admit to PCU, maintain on a monitored bed, continue serial cardiac enzymes and EKGs. Obtain magnesium level upon admission. Patient is on Coumadin with INR subtherapeutic at 1.0 thus we will transition to heparin drip at this time and hold Coumadin, continue medical management, AM FLP. ECHO requested. Cardiology consulted. Maintain NPO after midnight. ASA, NG. #2. Acute Complicated Urinary Tract Infection: UA upon ED evaluation remarkable, pending UCx, continue IVFs, monitor I/Os, continue IV Rocephin w/ transition as able pending sensitivities and speciation. #3. Mechanical fall with debility, intermittent chronic RLE debility, decline in adult failure to thrive: Multifactorial secondary to acute presentation as noted #1, #2, CT brain and cervical spine with no acute findings, maintain on fall precautions, PT/OT/case management consulted for discharge planning. #4. Diabetes mellitus type II with chronic neuropathy: From current list on a regimen, he will A1c requested be cautious, in the interim will maintain on ADA diet, accu checks w/ ISS. #5. Valvular heart disease: Status post chart reported history of MV repair, most recent echocardiogram noted 01/03/2023 with severely enlarged LA, mild MVI, EF 60%. #6. 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 CT chest 08/15/2016 with no mediastinal adenopathy. From oncology records receives IVIG monthly if IgG is less than 500. Encouraged continued outpatient follow-up and evaluation per oncology. #7. CAD: Status post CABG x 3 (BARBER to LAD, SVG to RCA, SVG to OM and septal myomectomy 01/15/2011) and PCI ([id number] LCx w/ 2.75 x 28 mm Promus Element and JANELL proximal LCx w/ 3.5 x 12 mm Promus 06/17/2011), given presentation as noted holding Coumadin with subtherapeutic INR with transition to heparin, continue aspirin, continue statin therapy, metoprolol, not on CHANDLER inhibitor/ARB. #8. Chronic HFpEF: Echo as noted above, will continue aspirin, statin, metoprolol, not on CHANDLER and or/ARB, continue spironolactone as well as Lasix therapy with judicious hydration if necessary. #9. Obstructive hypertrophic cardiomyopathy: Encourage continued close follow-up with cardiology, consulted as noted, continued on aspirin, statin, metoprolol, not on CHANDLER or/ARB, diuretics for underlying HFpEF as noted concurrently, repeat echo requested given presentation. #10. PAF/flutter: We will continue patient on metoprolol regimen, will hold Coumadin with INR subtherapeutic and transition as noted to heparin drip given acute presentation #1. #11. Chronic Kidney Disease Stage III, unclear subtype: Admission BUN/Cr 41/1.40, baseline renal function primarily 1.2-1.4, repeat BMP in AM. #12. History of TIA: Will continue aspirin, holding Coumadin with transition as noted to heparin drip, continue statin therapy, hypertensive regimen and evaluation of diabetic history as noted. #13. Anxiety and depression: We will continue patient home duloxetine regimen. #14. Hypertension: Continue home regimen including spironolactone, metoprolol, Lasix, PRN hydralazine. #15. Hyperlipidemia: Continue home statin regimen. AM FLP. #16. History complete heart block: Status post permanent pacemaker. Interrogation requested. #17. Hypothyroidism: We will continue patient home levothyroxine regimen. #18. DVT prophylaxis: We will continue heparin drip as noted, Coumadin subtherapeutic, holding. #19. CODE status: Patient GREG is her niece Jenyn and living will is currently in place. Discussed CODE status at length including difference between FULL code, DNR-CCA and DNR-CC status. Following discussions about the differences in these status, requested DNR-CCA, no intubation status. Advanced Care Planning Face to Face Time: 16 minutes. Charges/Coding Visit Charges Inpatient E&M: 48670 Init Hosp L3 Procedures Hospitalists Procedures: 53139 Advncd Care Plan 30 Min
[2023-05-07 20:56] LABS: Magnesium 2.6 mg/dL (1.6-2.6)
[2023-05-07] MEDS: Aspirin 81 MG TAB.CHEW 324 MG PO (21:12)
[2023-05-07 21:14] LABS: Prothrombin Time (Protime)PT. 13.4 SECONDS (11.7-14.9)
[2023-05-07] MEDS: Heparin Injection (Vial) 5,000 UNIT/ML VIAL 4000 UNIT IV (21:29)
[2023-05-07] MEDS: HEPARIN/D5w 25,000 UNITS 25,000 UNITS/250 ML IV.SOLN. 9 UNITS CONT INF (21:32)
--- NOTE | 2023-05-07 21:54 | ECHOD_ITS ---
Reason For Study: CAD/ASHD Procedure This was a 2D Doppler, Color Flow transthoracic echocardiogram. Exam performed portable in patient room. Left Ventricle Normal LV size. The estimated ejection fraction is 65 %. Unable to assess diastolic dysfunction. Septal hypokinesis. Right Ventricle Normal RV size. ICD or pacer leads identified within the right ventricle. Normal systolic function. Atria The left atrium is severely enlarged. Normal right atrium. ICD or pacer leads identified within the right atrium. Mitral Valve There is severe mitral annular calcification. There is no mitral valve stenosis. Mild (1+) mitral valve insufficiency. Tricuspid Valve There is no tricuspid stenosis. Trivial tricuspid valve insufficiency. Pulmonary artery systolic pressure is 35 mmHg. Aortic Valve Trisinus/trileaflet aortic valve. There is no aortic stenosis. Trivial aortic valve insufficiency. Pulmonic Valve There is no pulmonic valvular stenosis. Trivial pulmonic valve insufficiency. Great Vessels Normal aortic root. Pericardium/Pleural No pericardial effusion. MMode/2D Measurements & Calculations LVIDd: 3.8 cm IVSd: 1.8 cm Ao root diam: 3.5 cm LVIDs: 2.6 cm LVPWd: 1.2 cm RVDd: 2.8 cm FS: 30.4 % LAV(MOD-bp): 165.2 ml LVAd ap4: 27.3 cm2 SV(MOD-sp4): 55.8 ml LAV(MOD-bp) Indexed: 88.6 ml/m2 LVLd ap4: 7.5 cm LAV(MOD-sp2): 165.4 ml EDV(MOD-sp4): 82.7 ml LAV(MOD-sp4): 150.6 ml EDV(sp4-el): 84.8 ml LVAs ap4: 14.5 cm2 LVLs ap4: 6.6 cm ESV(MOD-sp4): 26.9 ml ESV(sp4-el): 27.1 ml EF(MOD-sp4): 67.5 % EF(sp4-el): 68.1 % SV(sp4-el): 57.7 ml LA A4 area: 35.0 cm2 LA dimension(2D): 6.3 cm RA A4 area: 14.8 cm2 TAPSE: 1.7 cm Time Measurements MV dec time: 0.42 sec Doppler Measurements & Calculations MV E max lavon: 140.3 cm/sec Lat Peak E' Lavon: 7.9 cm/sec Med Peak E' Lavon: 3.6 cm/sec MV A max lavon: 24.2 cm/sec E/E' lat: 17.8 E/E' med: 39.1 MV E/A: 5.8 MV V2 max: 160.6 cm/sec MV P1/2t max lavon: 149.9 cm/sec Ao V2 max: 174.9 cm/sec MV max P.3 mmHg MV P1/2t: 115.8 msec Ao max P.2 mmHg MV V2 mean: 76.0 cm/sec Ao V2 mean: 114.9 cm/sec MV mean P.1 mmHg MV dec slope: 379.3 cm/sec2 Ao mean P.3 mmHg MV V2 VTI: 41.2 cm MVA(P1/2t): 1.9 cm2 Ao V2 VTI: 38.8 cm AV (velocity ratio): 0.76 LV V1 max: 141.6 cm/sec PA V2 max: 86.0 cm/sec TR max lavon: 272.1 cm/sec LV V1 max P.0 mmHg PA V2 mean: 56.8 cm/sec TR max P.6 mmHg LV V1 mean P.9 mmHg LV V1 mean: 105.2 cm/sec LV V1 VTI: 29.6 cm ECHO/Echo Complete Interpretation Summary The estimated ejection fraction is 65 %. Unable to assess diastolic dysfunction. The left atrium is severely enlarged. Mild (1+) mitral valve insufficiency. Trivial aortic valve insufficiency. Ordering Physician: Ana Mccurdy Referring Physician: Susie Dang; Daryl Huitron Performed By: Brandi Pennington, JERED, RVT
[2023-05-07] MEDS: Gabapentin 300 MG Capsule PO (22:15)
[2023-05-07 22:17] LABS: Bedside Glucose 118 mg/dL (74-106)
[2023-05-07] MEDS: 0.9% Normal Saline (1000mL) 1,000 ML 75 ML IV (22:18)
[2023-05-07] MEDS: Multivitamin (Healthy Eyes) Capsule 1 CAP PO (22:29)
[2023-05-07] MEDS: Atorvastatin Calcium 20 MG Tablet PO (22:30)
[2023-05-07 22:40] LABS: Troponin-I HS 1427 pg/mL (3.0-54.0)
[2023-05-07] MEDS: Acyclovir 800 MG Tablet PO (22:55)
[2023-05-07] MEDS: DULoxetine Hcl 30 MG Capsule PO (22:55)
[2023-05-07] MEDS: oxyCODONE 5 MG Tablet PO (22:56)
[2023-05-07] MEDS: Furosemide 40 MG Tablet PO (22:56)
[2023-05-08] VITALS (7 sets, daily range): BP systolic 119–150; BP diastolic 50–67; PULSE 60–64; RESP 16; TEMP 36.2–36.5; O2SAT 97–100; BMI 25.9
[2023-05-08 03:47] LABS: Absolute Lymphocyte Count 1.56 X10^3/uL (0.83-4.51); Absolute Neutrophil Count 3.4 X10^3/uL (2.0-7.7); Basophil# 0.01 X10^3/uL; Basophil% 0.2 % (0-1); Eosinophil# 0.07 X10^3/uL; Eosinophils% 1.3 % (0-5); Hematocrit 41.7 % (37-47); Hemoglobin 13.5 g/dL (12.0-15.0); Lymphocyte # 1.56 X10^3/ul (0.83-4.51); Lymphocyte % 28.2 % (19-41); Mean Corp Hgb Conc 32.4 g/dL (32-36); Mean Corpuscular Hgb 31.9 pg (27.0-32.0); Mean Corpuscular Volume 98.6 fL (81-99); Mean Platelet Vol. 10.4 fl (6.2-12.0); Monocyte# 0.52 X10^3/uL; Monocyte% 9.4 % (0-10); NRBC Flagged by Analyzer 0 % (0-5); Neutrophil # 3.37 X10^3/uL (2.7-7.7); Neutrophil % 60.7 % (47-70); Platelet Count 178 K/mm3 (150-450); RBC Distribution Width CV 14.1 % (11.6-14.6); RBC Distribution Width SD 50.9 fl (35.1-43.9); Red Blood Count 4.23 M/mm3 (4.2-5.4); White Blood Count 5.5 K/mm3 (4.4-11.0)
[2023-05-08 03:59] LABS: Partial Thromboplast Time 67.7 Seconds (24.1-36.2)
[2023-05-08 04:04] LABS: ALB/GLOB Ratio 1.1 RATIO (0.9-2.4); AST(SGOT) 24 U/L (15-37); Alanine Aminotransfer ALT/SGPT 17 U/L (13-56); Albumin, Serum 3.4 g/dL (3.2-5.0); Alkaline Phosphatase 49 U/L (45-117); Anion Gap 6 (5-15); BUN 37 mg/dL (7-18); Calcium,Total 9.1 mg/dL (8.5-10.1); Chloride 106 mmol/L (98-107); Cholesterol 131 mg/dL (200); Creatinine, Serum 1.32 mg/dL (0.55-1.02); EST Glomerular Filtration Rate 40 mL/min (>60); Est Glom Filt Rate - Afr Amer 49 mL/min (>60); Estimated Creatinine Clearance 31.74 ml/min; Glucose 141 mg/dL (74-106); High Density Lipoprotein 42 mg/dL; Potassium 3.6 mmol/L (3.5-5.1); Protein, Total 6.4 g/dL (6.4-8.2); Sodium Level 140 mmol/L (136-145); Triglycerides 187 mg/dL; Very Low Density Lipoprotein 37 mg/dL (5-40)
[2023-05-08] MEDS: Metoprolol Tartrate 50 MG Tablet PO ×2 (06:39→20:43)
[2023-05-08] MEDS: Levothyroxine 50 MCG Tablet PO (06:40)
[2023-05-08] MEDS: Aspirin E.C. 81 MG Tablet PO (06:40)
[2023-05-08] MEDS: Multivitamin (Healthy Eyes) Capsule 1 CAP PO ×2 (06:40→20:43)
[2023-05-08] MEDS: Cholecalciferol (Vit D3) 125 MCG CAPSULE (5,000 UNITS) PO (06:40)
[2023-05-08] MEDS: DULoxetine Hcl 60 MG Capsule PO (06:41)
[2023-05-08] MEDS: Acyclovir 800 MG Tablet PO ×2 (06:41→20:42)
[2023-05-08] MEDS: Cyanocobalamin 500 MCG Tablet 1000 MCG PO (06:41)
[2023-05-08] MEDS: Gabapentin 300 MG Capsule PO ×3 (06:45→20:41)
[2023-05-08 07:10] LABS: Bedside Glucose 126 mg/dL (74-106)
[2023-05-08 08:21] LABS: Hemoglobin A1c 5.9 % (3.8-5.6)
--- NOTE | 2023-05-08 08:36 | PN.HOSP_ITS ---
Reason for Visit Reason for Visit: Diagnoses Non-ST elevation (NSTEMI) myocardial infarction (05/07/23) Urinary tract infection, site not specified (05/07/23) Objective Data Objective Data Vital Signs: Vital Signs Temp Pulse Resp BP Pulse Ox O2 Del Method 97.6 F L 64 16 142/56 H 97 Room Air 05/08/23 06:36 05/08/23 06:39 05/08/23 06:36 05/08/23 06:39 05/08/23 06:36 05/08/23 06:36 Oxygen Delivery Method Room Air Weight: 165 lb 12.602 oz Body Mass Index (BMI) 25.9 Intake & Output: Intake and Output for Last 24 Hours 05/06/23 05/07/23 05/08/23 23:59 23:59 23:59 Intake Total 50 / 50 770 / 770 Output Total 200 / 200 550 / 550 Balance -150 / -150 220 / 220 Lab / Micro Data 05/08/23 03:35 05/08/23 03:35 Labs: Laboratory Results - last 24 hr 05/07/23 15:00: WBC 8.5, RBC 4.58, Hgb 14.4, Hct 44.9, MCV 98.0, MCH 31.4, MCHC 32.1, RDW Std Deviation 50.7 H, RDW Coeff of Patrice 14.2, Plt Count 217, MPV 11.1, Immature Gran % (Auto) 0.600, Neut % (Auto) 67.9, Lymph % (Auto) 21.4, [place] % (Auto) 9.1, Eos % (Auto) 0.8, Baso % (Auto) 0.2, Absolute Neuts (auto) 5.8, Absolute Lymphs (auto) 1.81, Nucleated RBC % 0, PT Cancelled, INR Cancelled, Sodium 136, Potassium 4.2, Chloride 104, Carbon Dioxide 30.0, Anion Gap 2 L, BUN 41 H, Creatinine 1.40 H, Estim Creat Clear Calc 30.43, Est GFR (MDRD) Af Amer 46 L, Est GFR (MDRD) Non-Af 38 L, BUN/Creatinine Ratio 29.3 H, Glucose 103, Calcium 9.7, Troponin I High Sens 1098 H* 05/07/23 18:10: PT 13.6, INR 1.0, APTT 24.0 L, Magnesium 2.6, Troponin I High Sens 1338 H*, Urine Color Yellow, Urine Clarity Sl. Cloudy, Urine pH 6.0, Ur Specific [place] 1.010, Urine Protein Negative, Urine Glucose (UA) Normal, Urine Ketones Negative, Urine Occult Blood 10 H, Urine Nitrite Positive H, Urine Bilirubin Negative, Urine Urobilinogen Normal, Ur Leukocyte Esterase 500 H, Urine RBC 0-5 SEEN, Urine WBC 25-50 SEEN, Ur Squamous Epith Cells 0-5 SEEN, Urine Bacteria 2+, Urine Mucus RARE 05/07/23 20:51: PT 13.4, INR 1.0 05/07/23 21:58: POC Glucose 118 H 05/07/23 22:07: Troponin I High Sens 1427 H* 05/08/23 03:35: WBC 5.5, RBC 4.23, Hgb 13.5, Hct 41.7, MCV 98.6, MCH 31.9, MCHC 32.4, RDW Std Deviation 50.9 H, RDW Coeff of Patrice 14.1, Plt Count 178, MPV 10.4, Immature Gran % (Auto) 0.200, Neut % (Auto) 60.7, Lymph % (Auto) 28.2, [place] % (Auto) 9.4, Eos % (Auto) 1.3, Baso % (Auto) 0.2, Absolute Neuts (auto) 3.4, Absolute Lymphs (auto) 1.56, Nucleated RBC % 0, APTT 67.7 H, Sodium 140, Potassium 3.6, Chloride 106, Carbon Dioxide 28.0, Anion Gap 6, BUN 37 H, Creatinine 1.32 H, Estim Creat Clear Calc 31.74, Est GFR (MDRD) Af Amer 49 L, Es t GFR (MDRD) Non-Af 40 L, BUN/Creatinine Ratio 28.0 H, Glucose 141 H, Hemoglobin A1c 5.9 H, Calcium 9.1, Total Bilirubin 0.40, AST 24, ALT 17, Alkaline Phosphatase 49, Total Protein 6.4, Albumin 3.4, Globulin 3.0, Albumin/Globulin Ratio 1.1, Triglycerides 187, Cholesterol 131, LDL Cholesterol 52, VLDL Cholesterol 37, HDL Cholesterol 42 05/08/23 06:35: POC Glucose 126 H Radiography Diagnostic Testing: Radiology Impression Brain CT 05/07/23 17:22 IMPRESSION: Chronic involutional changes of the brain. Electronically Signed: Agustin Vivas MD at 19:01 EST , Cervical Spine CT 05/07/23 17:22 IMPRESSION: Multilevel degenerative changes, as described above. Electronically Signed: Agustin Vivas MD at 19:02 EST , Chest X-Ray 05/07/23 18:00 IMPRESSION: Degenerative changes, as described above. No demonstrated acute cardiopulmonary process. Electronically Signed: Agustin Vivas MD at 18:55 EST , Physical Exam Narrative seen and examined. In the morning when seen patient did not had chest pain but nurse informed that patient felt like chest pain . Seen again. Chest pain felt like a heaviness about lasting for about 10 minutes getting better with radiation to interscapular area. No acute shortness of breath. Feels fatigue. Mild dizziness but no diaphoresis. Discussed with the studio designer. Physical exam general: Alert, Oriented x3, Cooperative HEENT: Atraumatic, PERRLA, EOMI, Normocephalic Oral: No Gingival or Mucosal Lesions/ Ulcerations Neck: Supple, No JVD, Negative Carotid Bruits Chest wall/Lungs: Air entry diminished in bilateral lung bases. No crepitation/rhonchi Cardiovascular: paced rhythm, S1-S2 normal. Ejection systolic murmur over right second ICS, pansystolic murmur cardiac apex with radiation to left axilla. Abdomen: Bowel Sounds Present, Soft, Non Tender, Non-Distended : No renal angle tenderness. No suprapubic tenderness. Extremities: mild pitting edema, Capillary Refill Less than 3 Seconds Skin: Patchy erythematous chronic rash probably palpable purpura suggestive of leukocytoclastic vasculitis/CLL Musculoskeletal: No Tenderness to Palpation of Joints or Extremities Neurological: Cranial nerves II-XII grossly intact, DTR 2+/4. No acute focal neurological deficit. Psych/Mental Status: Flat affect. Assessment & Plan Assessment/Plan (1) Non-ST elevation [place] (NSTEMI): (2) UTI (urinary tract infection): PLAN: Plan The patient is an 87 y/o F with multiple comorbidities was admitted with generalized weakness, significant debility and fall, stated right lower ex tremity gave out and hit her head. No LOC. Mild headache resolved. #1. Acute NSTEMI (reports fatigue): Patient is admitted in PCU. Twelve-lead EKG shows paced rhythm without evidence of ischemia. Chest x-ray no acute cardiopulmonary finding. Troponin was elevated 1098, 1338 and 1427. patient just had chest pain felt like a pressure going to back intrascapular area. Lipid profile within normal limit, LDL 52. Discussed with the studio designer which was consulted. Medical management baby aspirin, metoprolol, Nitropaste and atorvastatin. INR subtherapeutic 1.0.Heparin drip changed to enoxaparin 1 mg/kg body weight because creatinine clearance is about 30 mill per minute. Repeat limited echo is ordered. No plan for cardiac cath. Pacemaker interrogation does not show NSVT V. tach or malignant arrhythmia #2. Acute Complicated Urinary Tract Infection: Patient herself denies new lower urinary tract symptoms including burning micturition, increased frequency or urgency. Urine culture pending. Empirically on IV ceftriaxone. #3. Mechanical fall with debility, intermittent chronic RLE debility, decline in adult failure to thrive: Multifactorial secondary to acute presentation as noted #1, #2, CT brain and cervical spine with no acute findings, maintain on fall precautions, PT/OT/case management consulted for discharge planning. #4. Diabetes mellitus type II with chronic neuropathy: From current list on a regimen, he will A1c requested be cautious, in the interim will maintain on ADA diet, accu checks w/ ISS. A1c 5.9%. Consistent with good glucose control #5. Valvular heart disease: Status post chart reported history of MV repair, most recent echocardiogram noted 01/03/2023 with severely enlarged LA, mild MVI, EF 60%. #6. 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 CT chest 08/15/2016 with no mediastinal adenopathy. From oncology records receives IVIG monthly if IgG is less than 500. Encouraged continued outpatient follow-up and evaluation per oncology. #7. CAD: Status post CABG x 3 (BARBER to LAD, SVG to RCA, SVG to OM and septal myomectomy 01/15/2011) and PCI ([id number] LCx w/ 2.75 x 28 mm Promus Element and JANELL proximal LCx w/ 3.5 x 12 mm Promus 06/17/2011), given presentation as noted holding Coumadin with subtherapeutic INR with transition to heparin, continue aspirin, continue statin therapy, metoprolol, not on CHANDLER inhibitor/ARB. #8. Chronic HFpEF: Echo as noted above, will continue aspirin, statin, metoprolol, not on CHANDLER and or/ARB, continue spironolactone as well as Lasix therapy with judicious hydration if necessary. #9. Obstructive hypertrophic cardiomyopathy: Encourage continued close follow- up with cardiology, consulted as noted, continued on aspirin, statin, metoprolol, not on CHANDLER or/ARB, diuretics for underlying HFpEF as noted concurrently, repeat echo requested given presentation. #10. PAF/flutter: We will continue patient on metoprolol regimen, will hold Coumadin with INR subtherapeutic and transition as noted to heparin drip given acute presentation #1. #11. Chronic Kidney Disease Stage III, unclear subtype: Admission BUN/Cr 41/1.40, baseline renal function primarily 1.2-1.4, repeat BMP in AM. #12. History of TIA: Will continue aspirin, holding Coumadin with transition as noted to heparin drip, continue statin therapy, hypertensive regimen and evaluation of diabetic history as noted. #13. Anxiety and depression: We will continue patient home duloxetine regimen. #14. Hypertension: Continue home regimen including spironolactone, metoprolol, Lasix, PRN hydralazine. #15. Hyperlipidemia: Continue home statin regimen. AM FLP. #16. History complete heart block: Status post permanent pacemaker. Interrogation requested. #17. Hypothyroidism: We will continue patient home levothyroxine regimen. #18. DVT prophylaxis: We will continue heparin drip as noted, Coumadin subtherapeutic, holding. #19. CODE status: Patient GREG is her niece Jenny and living will is currently in place. Discussed CODE status at length including difference between FULL code, DNR-CCA and DNR-CC status. Following discussions about the differ ences in these status, requested DNR-CCA, no intubation status. Charges/Coding Addendum Addendum: total time of the visit including total time spent in counseling or coordination of care, (more than 50% of the total time, spent in obtaining medical information from nurses and other ancillary care providers,explaining to the patient about labs, imaging, diagnosis and management of multiple active complex medical conditions),Repeated evaluation, discussion with studio designer , review of labs , EKG, pacemaker interrogation and imaging is 40 minutes. Visit Charges Inpatient E&M: 49288 [facility] Hosp L3
[2023-05-08] MEDS: Furosemide 40 MG Tablet PO ×2 (09:36→17:28)
[2023-05-08] MEDS: Spironolactone 25 MG Tablet 12.5 MG PO (09:36)
[2023-05-08] MEDS: Nitroglycerin Oint 1 INCH PACKET TD (09:36)
[2023-05-08] MEDS: Enoxaparin 80 MG/0.8 ML Syringe SC (09:36)
--- NOTE | 2023-05-08 09:49 | CON.PCM.CA_ITS ---
Assessment & Plan Assessment/Plan (1) Non-ST elevation [place] (NSTEMI): PLAN: The patient's troponin is positive. She has a chronically paced rhythm with underlying atrial fibrillation. Pacemaker check shows normal pacer function she is pacer dependent due to complete heart block. (2) Subtherapeutic international normalized ratio (INR): PLAN: The patient is currently on heparin. A decision will need to be made concerning her long-term oral anticoagulation given her propensity to fall. Ideally she should be maintained on Coumadin with an INR of 2-3 due to her atrial fibrillation. (3) A-fib: QUALIFIERS: Atrial fibrillation type: longstanding persistent Qualified Code(s): I48.11 - Longstanding persistent atrial fibrillation PLAN: Chronic atrial fibrillation with complete heart block and a paced rhythm. The patient is pacer dependent. Normal pacer function documented today by pacer check. (4) Complete heart block: PLAN: Normal pacer function documented today by pacer check. (5) Presence of permanent cardiac pacemaker: PLAN: Pacemaker interrogated today which showed underlying atrial fibrillation with a controlled ventricular response that is totally pacer dependent and pacer controlled. (6) Atherosclerotic cardiovascular disease: PLAN: The patient has a history of coronary artery disease. Status post remote bypass graft surgery with mitral valve repair and septal myectomy due to sigmoid septum. I did not auscultate a significant murmur. PLAN: Plan The patient is a DNR CCA status. I feel this is appropriate and we should proceed with conservative medical management. I do not feel the patient is a candidate for aggressive invasive evaluation and treatment. Will place her on nitroglycerin paste, continue anticoagulation with Lovenox, continue beta-efrain therapy and treat her medically. I will follow-up with you. Thank you for allowing me to participate in the care of your patient. Please don't hesitate to call if any issues arise. This note was generated using a voice recognition system and there may be incorrect words, spelling, or punctuation that were not noted when reviewing the office note prior to saving. Portions of this documentation were copied and pasted from previous office visit notes to provide a cohesive continuity of the history. The note has been reviewed, edited, and updated, as necessary. HPI Consult Data Date of Consult: 05/08/23 HPI Narrative Reason for Consultation: Elevated Troponins HPI Narrative: BEVERLY GARCIA, is a 87 F who presents after a fall at her. She is ambulatory with a walker at times. But has noticed recent decline in her abilities. The patient has multiple comorbidities including cutaneous CLL, hypertrophic cardiomyopathy, remote history of coronary bypass graft surgery with septal myectomy and mitral valve repair. Patient also is pacer dependent and has a permanent pacemaker implanted. That was evaluated today and showed normal pacer function she is pacer dependent. The underlying rhythm appears to be atrial fibrillation. The patient is DNR CCA status. The patient was admitted with a urinary tract infection. Opponents were positive in the 1400 range. In that time the patient did not complain of any chest discomfort. She currently does complain of chest discomfort at rest in the bed. She is currently being treated with cutaneous nitroglycerin [facility] Medical History Abnormal urine finding Atherosclerosis of coronary artery bypass graft without angina pectoris Atherosclerotic heart disease of tribal coronary artery without angina pectoris Bronchitis Chronic diastolic (congestive) heart failure Chronic lymphoid leukemia Complete heart block COVID-19 DM (diabetes mellitus), type 2 with peripheral vascular complications Essential (primary) hypertension Gout HLD (hyperlipidemia) Hypogammaglobulinemia, acquired Left bundle branch block (LBBB) Macular degeneration Mitral valve annular calcification Nonrheumatic mitral (valve) insufficiency Nonsustained ventricular tachycardia Obstructive hypertrophic cardiomyopathy Other specified transient cerebral ischemias Peripheral edema Proteinuria Skin tear of left upper extremity Uncontrolled hypertension URI (upper respiratory infection) Urinary frequency Home Medications cholecalciferol (vitamin D3) 125 mcg (5,000 unit) capsule 1 tab PO DAILY 05/18/15 [History Last Taken Unknown] duloxetine 60 mg capsule,delayed release 60 mg PO DAILY 04/11/16 [History Last Taken Unknown] gabapentin 300 mg capsule 300 mg PO TID 10/28/16 [History Last Taken 12/21/21] simvastatin 40 mg tablet 40 mg PO QHS 10/28/16 [History Last Taken Unknown] arginine (L-arginine) 500 mg tablet 500 mg PO BID 10/29/17 [History Last Taken Unknown] cyanocobalamin (vitamin B-12) 500 mcg tablet 1,000 mcg PO DAILY 11/26/17 [History Last Taken Unknown] levothyroxine 50 mcg tablet 50 mcg PO DAILY 12/24/17 [History Last Taken 12/21/21] vit C 250 mg-vit E 90 mg-zinc 40 mg-copper 1 [id number] capsule (PreserVision AREDS-2) 1 tab PO BID 01/24/21 [History Last Taken Unknown] acyclovir 800 mg tablet 800 mg PO BID 05/16/21 [History Last Taken Unknown] metoprolol tartrate 50 mg tablet 50 mg PO BID #1 TAB 10/22/22 [Rx Last Taken Unknown] duloxetine 30 mg capsule,delayed release 30 mg PO QHS 11/01/22 [History Last Taken Unknown] warfarin 2 mg tablet 4 mg PO DAILY 01/03/23 [History Last Taken 01/02/23] spironolactone 25 mg tablet 12.5 mg (1/2 x 25 mg) PO DAILY #30 tabs 01/04/23 [Rx Last Taken Unknown] furosemide 40 mg tablet (Lasix) 40 mg PO BID #180 tabs 01/30/23 [Rx Last Taken Unknown] oxycodone 5 mg tablet 5 mg PO DAILY PRN PRN pain 05/07/23 [History Last Taken Unknown] Allergy/AdvReac Type Severity Reaction Status Date / Time amoxicillin trihydrate AdvReac Severe Vomiting Verified 05/07/23 15:13 [From Augmentin] lidocaine AdvReac Severe Other Verified 05/07/23 15:13 Penicillins AdvReac Severe Vomiting Verified 05/07/23 15:13 potassium clavulanate AdvReac Severe Vomiting Verified 05/07/23 15:13 [From Augmentin] Family History Father , age 86 CAD (coronary artery disease) Sister Asthma Mother Valvular heart disease Surgical History H/O coronary artery bypass surgery (01/15/11) History of appendectomy History of cholecystectomy History of coronary artery stent placement (06/17/11) History of electrophysiologic study (01/21/11) History of hysterectomy History of mitral valve repair (01/15/11) History of tonsillectomy nerve ablation for pain management Presence of permanent cardiac pacemaker (12/21/21) Social History household members: family housing: house Smoking Status: Never smoker alcohol intake: never substance use type: does not use caffeine: Yes Type: coffee Number of servings: 2 what type of physical activity do you participate in: walking and weight training frequency: 5-6 times per week ROS ROS Narrative Difficult to obtain. Constitutional Constitutional: Reports systems reviewed and no addt'l complaints, except as documented Cardiovascular Cardiovascular: Reports as per HPI, chest pain and chest pain at rest Respiratory/Chest Respiratory/Chest: Reports as per HPI Gastrointestinal Gastrointestinal: Reports as per HPI Genitourinary Genitourinary: Reports as per HPI Musculoskeletal Musculoskeletal: Reports as per HPI Integumentary Integumentary: Reports as per HPI and non-healing lesions Neurologic Neurologic: Reports as per HPI Psychiatric Psychiatric: Reports as per HPI Endocrine Endocrinology: Reports as per HPI Hematologic/Lymphatic Hematologic/Lymphatic: Reports as per HPI Physical Exam Const alert Constitutional Narrative: Slow to respond to questions. HEENT normocephalic Eyes EOMs intact bilaterally Neck no carotid bruits Chest inspection of chest normal Resp normal respiratory effort Auscultation: crackles bilateral base Cardio regular rate, regular rhythm, S1 normal heart sound, no rub and no gallops Heart Sounds: murmur systolic II/ soft right sternal border GI soft to palpation and no bruits Extremity Extremity Narrative: Multiple cutaneous lesions noted along her lower extremities consistent with her cutaneous CLL. General Extremity: edema bilateral (Trace) lower extremity Skin Skin Narrative: See lower extremity description Psych cooperative Psych Narrative: Slow to answer questions. Risk Stratification Risk Stratification Applicable: No Charges/Coding Visit Charges Inpatient E&M: 37983 Init Hosp L3 Objective Data Vital Signs: Vital Signs Temp Pulse Resp BP Pulse Ox O2 Del Method 97.2 F L 63 16 128/60 H 97 Room Air 05/08/23 08:55 05/08/23 08:55 05/08/23 08:55 05/08/23 08:55 05/08/23 08:55 05/08/23 08:55 Oxygen Delivery Method Room Air Weight: 165 lb 12.602 oz Body Mass Index (BMI) 25.9 Intake & Output: Intake and Output for Last 24 Hours 05/06/23 05/07/23 05/08/23 23:59 23:59 23:59 Intake Total 50 / 50 876.8 / 876.8 Output Total 200 / 200 1250 / 1250 Balance -150 / -150 -373.2 / -373.2 Lab / Micro Data Attestation: I reviewed the patient's lab results. 05/08/23 03:35 05/08/23 03:35 Labs: Laboratory Results - last 24 hr 05/07/23 15:00: WBC 8.5, RBC 4.58, Hgb 14.4, Hct 44.9, MCV 98.0, MCH 31.4, MCHC 32.1, RDW Std Deviation 50.7 H, RDW Coeff of [place] 14.2, Plt Count 217, MPV 11.1, Immature Gran % (Auto) 0.600, Neut % (Auto) 67.9, Lymph % (Auto) 21.4, [place] % (Auto) 9.1, Eos % (Auto) 0.8, Baso % (Auto) 0.2, Absolute Neuts (auto) 5.8, Absolute Lymphs (auto) 1.81, Nucleated RBC % 0, PT Cancelled, INR Cancelled, Sodium 136, Potassium 4.2, Chloride 104, Carbon Dioxide 30.0, Anion Gap 2 L, BUN 41 H, Creatinine 1.40 H, Estim Creat Clear Calc 30.43, Est GFR (MDRD) Af Amer 46 L, Est GFR (MDRD) Non-Af 38 L, BUN/Creatinine Ratio 29.3 H, Glucose 103, Calcium 9.7, Troponin I High Sens 1098 H* 05/07/23 18:10: PT 13.6, INR 1.0, APTT 24.0 L, Magnesium 2.6, Troponin I High Sens 1338 H*, Urine Color Yellow, Urine Clarity Sl. Cloudy, Urine pH 6.0, Ur Specific [place] 1.010, Urine Protein Negative, Urine Glucose (UA) Normal, Urine Ketones Negative, Urine Occult Blood 10 H, Urine Nitrite Positive H, Urine Bilirubin Negative, Urine Urobilinogen Normal, Ur Leukocyte Esterase 500 H, Urine RBC 0-5 SEEN, Urine WBC 25-50 SEEN, Ur Squamous Epith Cells 0-5 SEEN, Urine Bacteria 2+, Urine Mucus RARE 05/07/23 20:51: PT 13.4, INR 1.0 05/07/23 21:58: POC Glucose 118 H 05/07/23 22:07: Troponin I High Sens 1427 H* 05/08/23 03:35: WBC 5.5, RBC 4.23, Hgb 13.5, Hct 41.7, MCV 98.6, MCH 31.9, MCHC 32.4, RDW Std Deviation 50.9 H, RDW Coeff of [place] 14.1, Plt Count 178, MPV 10.4, Immature Gran % (Auto) 0.200, Neut % (Auto) 60.7, Lymph % (Auto) 28.2, [place] % (Auto) 9.4, Eos % (Auto) 1.3, Baso % (Auto) 0.2, Absolute Neuts (auto) 3.4, Absolute Lymphs (auto) 1.56, Nucleated RBC % 0, APTT 67.7 H, Sodium 140, Potassium 3.6, Chloride 106, Carbon Dioxide 28.0, Anion Gap 6, BUN 37 H, Creatinine 1.32 H, Estim Creat Clear Calc 31.74, Est GFR (MDRD) Af Amer 49 L, Est GFR (MDRD) Non-Af 40 L, BUN/Creatinine Ratio 28.0 H, Glucose 141 H, Hemoglobin A1c 5.9 H, Calcium 9.1, Total Bilirubin 0.40, AST 24, ALT 17, Alkaline Phosphatase 49, Total Protein 6.4, Albumin 3.4, Globulin 3.0, Albumin/Globulin Ratio 1.1, Triglycerides 187, Cholesterol 131, LDL Cholesterol 52, VLDL Cholesterol 37, HDL Cholesterol 42 05/08/23 06:35: POC Glucose 126 H Cardiology Labs/Tests 05/07/23 15:00: WBC 8.5, RBC 4.58, Hgb 14.4, Hct 44.9, MCV 98.0, MCH 31.4, MCHC 32.1, Plt Count 217, MPV 11.1, Immature Gran % (Auto) 0.600, Neut % (Auto) 67.9, Lymph % (Auto) 21.4, [place] % (Auto) 9.1, Eos % (Auto) 0.8, Baso % (Auto) 0.2, Absolute Neuts (auto) 5.8, Nucleated RBC % 0, PT Cancelled, INR Cancelled, Sodium 136, Potassium 4.2, Chloride 104, Carbon Dioxide 30.0, Anion Gap 2 L, BUN 41 H, Creatinine 1.40 H, Est GFR (MDRD) Af Amer 46 L, Est GFR (MDRD) Non-Af 38 L , BUN/Creatinine Ratio 29.3 H, Glucose 103, Calcium 9.7 05/07/23 18:10: PT 13.6, INR 1.0, APTT 24.0 L, Magnesium 2.6, Urine Color Yellow, Urine Clarity Sl. Cloudy, Urine pH 6.0, Ur Specific [place] 1.010, Urine Protein Negative, Urine Glucose (UA) Normal, Urine Ketones Negative, Urine Occult Blood 10 H, Urine Nitrite Positive H, Urine Bilirubin Negative, Urine Urobilinogen Normal, Ur Leukocyte Esterase 500 H, Urine RBC 0-5 SEEN, Urine WBC 25-50 SEEN 05/07/23 20:51: PT 13.4, INR 1.0 05/08/23 03:35: WBC 5.5, RBC 4.23, Hgb 13.5, Hct 41.7, MCV 98.6, MCH 31.9, MCHC 32.4, Plt Count 178, MPV 10.4, Immature Gran % (Auto) 0.200, Neut % (Auto) 60.7, Lymph % (Auto) 28.2, [place] % (Auto) 9.4, Eos % (Auto) 1.3, Baso % (Auto) 0.2, Absolute Neuts (auto) 3.4, Nucleated RBC % 0, APTT 67.7 H, Sodium 140, Potassium 3.6, Chloride 106, Carbon Dioxide 28.0, Anion Gap 6, BUN 37 H, Creatinine 1.32 H , Est GFR (MDRD) Af Amer 49 L, Est GFR (MDRD) Non-Af 40 L, BUN/Creatinine Ratio 28.0 H, Glucose 141 H, Hemoglobin A1c 5.9 H, Calcium 9.1, Total Bilirubin 0.40, Triglycerides 187, Cholesterol 131, LDL Cholesterol 52, VLDL Cholesterol 37, HDL Cholesterol 42 Rhythm: EKG: ECHO: Stress Test: Cardiac Cath: PCI: CT Surgery: Holter monitor: EPS: PPM: CXR: Chest CT Scan: Radiography Diagnostic Testing: Radiology Impression Brain CT 05/07/23 17:22 IMPRESSION: Chronic involutional changes of the brain. Electronically Signed: Agustin Vivas MD at 19:01 EST , Cervical Spine CT 05/07/23 17:22 IMPRESSION: Multilevel degenerative changes, as described above. Electronically Signed: Agustin Vivas MD at 19:02 EST , Chest X-Ray 05/07/23 18:00 IMPRESSION: Degenerative changes, as described above. No demonstrated acute cardiopulmonary process. Electronically Signed: Agustin Vivas MD at 18:55 EST , EKG Follow-up EKG: Attestation: I personally reviewed and interpreted this EKG as follows: Pacemaker model: Unknown Pacemaker function: normal pacer function
--- NOTE | 2023-05-08 15:40 | CASEMGMT ---
RN SPARKLE Face to Face with patient for initial transition planning/care coordination assessment. RN CM introduced self and role at [facility]. Patient sitting in chair, alert and oriented, family at bedside. Patient willing to participate in assessment and is able to answer all questions appropriately. Care providers, pharmacy, and demographics verified. Patient wishes to discharge home with [facility] and declined list of HHC. Patient states she has no further needs or concerns at this time. CM to follow for discharge planning needs that may arise. PCP: [facility] Specialists: Mahamed, riveter; Dakota, pain; Mike, garage mechanic; Gulshan, oncologist; Justen, urologist; Preferred Pharmacy: [facility] Insurance: [employer] [place] Prescription Benefit: yes Living Will/HPOA: yes, niece Jenny Venegas LNOK: sister, niece, great nephew Living Arrangements: Patient lives with great nephew in a single story home with 2 steps and railing to enter the home. Patient was independent at home. Transportation: hospital van, nephew DME/HHC: Patient has shower chair, BSC, raised toilet, cane, walker, grab bars at home. Patient has been to [facility]. Disposition Plan: Patient to discharge home with family support, [facility], and follow-up plans in place. Brooke BOWENS, RN, CM
--- NOTE | 2023-05-08 16:25 | CHAPLAIN ---
Type of Pastoral Visit _x__ Initial Visit ___ Follow-up Visit ___ On-call Visit ___ General Patient Visit ___ Spiritual Assessment ___ Family Conference ___ Bereavement ___ Rapid Response ___ Code Blue ___ Other (describe below) Pastoral Care Referral From _x__ Patient ___ Family ___ Nurse ___ Physician ___ Automotive Technician ___ Capacity Manager ___ Other (describe below) Sacrament/Intervention _x__ Active listening ___ Anointing ___ Denominational ___ Bereavement ___ Communion ___ Shila exploration ___ ___ Life review ___ Prayer ___ Reconciliation ___ Sacrament of Sick _x__ Supportive presence ___ Wedding ___ Other (describe below) Pastoral Comments patient has family members in the room; pt states that she is doing okay so far and waiting on more news; pt requests a follow up visit at a more convenient time
[2023-05-08 16:36] LABS: Bedside Glucose 134 mg/dL (74-106)
--- NOTE | 2023-05-08 17:02 | NURSING ---
This RN taking over care at this time
[2023-05-08] MEDS: DULoxetine Hcl 30 MG Capsule PO (20:43)
[2023-05-08] MEDS: Atorvastatin Calcium 40 MG Tablet PO (20:44)
[2023-05-08] MEDS: Ceftriaxone 1 GM/50 ML BAG IV (21:01)
[2023-05-08 21:24] LABS: Bedside Glucose 139 mg/dL (74-106)
[2023-05-09 03:37] VITALS: BP 127/50; PULSE 60; RESP 16; TEMP 36.5; O2SAT 100
[2023-05-09 06:00] VITALS: BMI 25.7
[2023-05-09] MEDS: Gabapentin 300 MG Capsule PO ×2 (06:03→14:03)
[2023-05-09] MEDS: Levothyroxine 50 MCG Tablet PO (06:03)
[2023-05-09 06:28] LABS: Absolute Lymphocyte Count 1.17 X10^3/uL (0.83-4.51); Basophil# 0.02 X10^3/uL; Basophil% 0.3 % (0-1); Eosinophil# 0.13 X10^3/uL; Eosinophils% 2.2 % (0-5); Hematocrit 43.7 % (37-47); Hemoglobin 14.1 g/dL (12.0-15.0); Lymphocyte # 1.17 X10^3/ul (0.83-4.51); Lymphocyte % 19.9 % (19-41); Mean Corp Hgb Conc 32.3 g/dL (32-36); Mean Corpuscular Hgb 31.6 pg (27.0-32.0); Mean Platelet Vol. 10.8 fl (6.2-12.0); Monocyte# 0.58 X10^3/uL; Monocyte% 9.9 % (0-10); NRBC Flagged by Analyzer 0 % (0-5); Neutrophil # 3.95 X10^3/uL (2.7-7.7); Neutrophil % 67.4 % (47-70); Platelet Count 181 K/mm3 (150-450); RBC Distribution Width SD 50.4 fl (35.1-43.9); Red Blood Count 4.46 M/mm3 (4.2-5.4); White Blood Count 5.9 K/mm3 (4.4-11.0)
[2023-05-09 06:29] LABS: Bedside Glucose 126 mg/dL (74-106)
[2023-05-09 06:51] LABS: Anion Gap 5 (5-15); BUN 35 mg/dL (7-18); Calcium,Total 9.7 mg/dL (8.5-10.1); Chloride 104 mmol/L (98-107); Creatinine, Serum 1.46 mg/dL (0.55-1.02); EST Glomerular Filtration Rate 36 mL/min (>60); Est Glom Filt Rate - Afr Amer 44 mL/min (>60); Estimated Creatinine Clearance 28.59 ml/min; Glucose 142 mg/dL (74-106); Potassium 3.8 mmol/L (3.5-5.1); Sodium Level 137 mmol/L (136-145)
[2023-05-09 06:59] LABS: Prothrombin Time (Protime)PT. 13.3 SECONDS (11.7-14.9)
[2023-05-09 08:38] VITALS: BP 150/69; PULSE 60; RESP 17; TEMP 36.4; O2SAT 97
--- NOTE | 2023-05-09 08:47 | CASEMGMT ---
Social Work: SW made HH referral to [facility] via [facility]. SHERLEY Acosta
[2023-05-09 09:25] VITALS: BP 134/51; PULSE 60; RESP 18; TEMP 36.4; O2SAT 100
[2023-05-09] MEDS: DULoxetine Hcl 60 MG Capsule PO (09:30)
[2023-05-09] MEDS: Furosemide 40 MG Tablet PO (09:30)
[2023-05-09] MEDS: Spironolactone 25 MG Tablet 12.5 MG PO (09:30)
[2023-05-09 09:31] VITALS: BP 134/51; PULSE 60
[2023-05-09] MEDS: Metoprolol Tartrate 50 MG Tablet PO (09:31)
[2023-05-09] MEDS: Aspirin E.C. 81 MG Tablet PO (09:31)
[2023-05-09] MEDS: Enoxaparin 80 MG/0.8 ML Syringe SC (09:31)
[2023-05-09] MEDS: Multivitamin (Healthy Eyes) Capsule 1 CAP PO (09:31)
[2023-05-09] MEDS: Cholecalciferol (Vit D3) 125 MCG CAPSULE (5,000 UNITS) PO (09:32)
[2023-05-09] MEDS: Cyanocobalamin 500 MCG Tablet 1000 MCG PO (09:32)
[2023-05-09] MEDS: Acyclovir 800 MG Tablet PO (09:32)
--- NOTE | 2023-05-09 09:43 | PN.CARD_ITS ---
Subjective Subjective Patient is resting comfortably seated in the bed today. She was up in the chair yesterday without incident. She has had no recurrence of her chest pain since being placed on Nitropaste. Objective Data Vital Signs: Vital Signs Temp Pulse Resp BP Pulse Ox O2 Del Method 97.5 F L 60 18 134/51 H 100 Room Air 05/09/23 09:25 05/09/23 09:31 05/09/23 09:25 05/09/23 09:31 05/09/23 09:25 05/09/23 09:25 Oxygen Delivery Method Room Air Weight: 164 lb 0.383 oz Body Mass Index (BMI) 25.7 Intake & Output: Intake and Output for Last 24 Hours 05/07/23 05/08/23 05/09/23 23:59 23:59 23:59 Intake Total 50 / 50 1286.8 / 1286.8 Output Total 200 / 200 2450 / 2450 250 / 250 Balance -150 / -150 -1163.2 / -1163.2 -250 / -250 Lab / Micro Data Attestation: I reviewed the patient's lab results. 05/09/23 05:30 05/09/23 05:30 Labs: Laboratory Results - last 24 hr 05/08/23 16:19: POC Glucose 134 H 05/08/23 20:46: POC Glucose 139 H 05/09/23 05:30: WBC 5.9, RBC 4.46, Hgb 14.1, Hct 43.7, MCV 98.0, MCH 31.6, MCHC 32.3, RDW Std Deviation 50.4 H, RDW Coeff of Patrice 14.0, Plt Count 181, MPV 10.8, Immature Gran % (Auto) 0.300, Neut % (Auto) 67.4, Lymph % (Auto) 19.9, [place] % (Auto) 9.9, Eos % (Auto) 2.2, Baso % (Auto) 0.3, Absolute Neuts (auto) 4.0, Ab solute Lymphs (auto) 1.17, Nucleated RBC % 0, PT 13.3, INR 1.0, Sodium 137, Potassium 3.8, Chloride 104, Carbon Dioxide 28.0, Anion Gap 5, BUN 35 H, Creatinine 1.46 H, Estim Creat Clear Calc 28.59, Est GFR (MDRD) Af Amer 44 L, Est GFR (MDRD) Non-Af 36 L, BUN/Creatinine Ratio 24.0 H, Glucose 142 H, Calcium 9.7 05/09/23 06:06: POC Glucose 126 H Micro: Microbiology 05/07/23 18:20 Urine, Catheterized Urine Culture - Preliminary Escherichia coli GPC Poss Enterococcus sp Cardiology Labs/Tests 05/09/23 05:30: WBC 5.9, RBC 4.46, Hgb 14.1, Hct 43.7, MCV 98.0, MCH 31.6, MCHC 32.3, Plt Count 181, MPV 10.8, Immature Gran % (Auto) 0.300, Neut % (Auto) 67.4, Lymph % (Auto) 19.9, [place] % (Auto) 9.9, Eos % (Auto) 2.2, Baso % (Auto) 0.3, Absolute Neuts (auto) 4.0, Nucleated RBC % 0, PT 13.3, INR 1.0, Sodium 137, Potassium 3.8, Chloride 104, Carbon Dioxide 28.0, Anion Gap 5, BUN 35 H, Creatinine 1.46 H, Est GFR (MDRD) Af Amer 44 L, Est GFR (MDRD) Non-Af 36 L, BUN/Creatinine Ratio 24.0 H, Glucose 142 H, Calcium 9.7 Rhythm: EKG: ECHO: Stress Test: Cardiac Cath: PCI: CT Surgery: Holter monitor: EPS: PPM: CXR: Chest CT Scan: Radiography Diagnostic Testing: Radiology Impression Echocardiogram 05/07/23 21:54 Interpretation Summary The estimated ejection fraction is 65 %. Unable to assess diastolic dysfunction. The left atrium is severely enlarged. Mild (1+) mitral valve insufficiency. Trivial aortic valve insufficiency. Ordering Physician: Ana Mccurdy Referring Physician: Susie Dang; Daryl Huitron Performed By: Brandi Pennington, RDCS, RVT Physical Exam Const alert HEENT normocephalic Eyes EOMs intact bilaterally Neck no JVD Chest inspection of chest normal Resp normal respiratory effort Auscultation: Negative for crackles, rales, rhonchi or wheezes Cardio regular rate, regular rhythm, S1 normal heart sound, S2 normal heart sound, no rub and no gallops Heart Sounds: murmur systolic II/ Extremity General Extremity: edema bilateral (Trace) lower extremity Psych cooperative and affect normal Assessment & Plan Assessment/Plan (1) Persistent atrial fibrillation: PLAN: The patient is a ventricular paced rhythm she has a history of complete heart block and is pacer dependent. Her underlying atrial rhythm is atrial fibs. The patient should be on long-term oral anticoagulation therapy as t terrellraj luis. Previously she had been on Coumadin but on admission her INR was 1.0. I will defer reinstitution of Coumadin to the primary service. From a cardiovascular standpoint ideally should should she should be on Coumadin with an INR target of 2.0-3.0. (2) Non-ST elevation SC (NSTEMI): PLAN: The patient is asymptomatic. We will switch her from nitroglycerin paste to Imdur 60 mg every morning. From a cardiovascular standpoint she can be discharged back to her living arrangements. She should follow-up in the [facility] office per her previously arranged appointment. PLAN: Plan 1. Nitropaste to Imdur 60 mg every morning. 2. From a cardiovascular standpoint the patient can be cleared to be discharged. 3. Follow-up with the [facility] for previously arranged appointment. Charges/Coding Visit Charges Inpatient E&M: 89905 Subs Hosp L2
--- NOTE | 2023-05-09 09:57 | CASEMGMT ---
Social Work: A list of 10 HH providers including quality and resource use data and consistent with patient's preferred geographic region, medical needs, and insurance network were provided from the [facility] [facility]. SHERLEY Acosta
[2023-05-09] MEDS: Isosorbide Mononitrate 60 MG Tablet PO (10:30)
[2023-05-09] MEDS: Insulin Lispro 100 UNIT/ML INSULN.PEN SC (11:29)
--- NOTE | 2023-05-09 11:30 | CASEMGMT ---
RN SPARKLE received updated from Discharge manager planning that patient was denied by [facility], list provided and prefers [facility]. RN SPARKLE sent referral to [facility], awaiting acceptance. CM will continue to follow this patient and plan for a safe discharge.
[2023-05-09 11:45] LABS: Bedside Glucose 164 mg/dL (74-106)
--- NOTE | 2023-05-09 12:37 | PCM.DC ---
Discharge Instructions Diet Discharge Diet: No restrictions Activity Discharge Activity: Return to Normal Activity Weight Bearing Status: Weight bearing as tolerated Dressing / Incision Call your doctor if you observe: Fever of 101 or Higher, Coldness, Increased Pain, Numbness or Tingling, Change in Color, Inability to urinate, Inability to have a bowel movement, Using more than 1 pad per hour, Shortness of breath, Dizziness, Fainting spells, Swelling in the ankles, Chest pain, Prolonged hiccupping, Increased palpitations (irregular heartbeat) and Calf discomfort Follow Up Care When: IN 2 WEEKS Test Results: Test results from this visit will be discussed in further detail at your follow-up appointment, if applicable. Discharge Plan Admission Admit Date/Time: 05/07/23 20:11 Primary Reason for Your Visit: Non-STEMI. Attending Provider: Diego Simms Primary Care Provider: Susie Dang Consulting Providers: Daryl Huitron; Ana Mccurdy Discharge Orders/Prescriptions Prescriptions: New isosorbide mononitrate 60 mg Tablet Extended Release 24 Hr 60 mg PO DAILY 30 Days Qty: 30 2RF sennosides-docusate sodium [Stool Softener-Stimulant Laxat] 8.6-50 mg Tablet 2 tab PO BID PRN PRN (Reason: Constipation) Qty: 0 0RF aspirin 81 mg Tablet,Delayed Release (Dr/Ec) 81 mg PO BREAKFAST 30 Days Qty: 30 3RF Rx Instructions: Discontinue if platelet count drops less than 50,000 or hemoglobin less than 8 g% cephalexin 500 mg capsule 500 mg PO TID 5 Days Qty: 15 0RF Continued PreserVision AREDS-2 250-90-40-1 mg capsule 1 tab PO BID acyclovir 800 mg tablet 800 mg PO BID cholecalciferol (vitamin D3) 5,000 UNIT capsule 1 tab PO DAILY duloxetine 60 MG capsule,delayed release(DR/EC) 60 mg PO DAILY gabapentin 300 MG capsule 300 mg PO TID simvastatin 40 MG tablet 40 mg PO QHS arginine (L-arginine) 500 MG tablet 500 mg PO BID cyanocobalamin (vitamin B-12) 500 MCG tablet 1,000 mcg PO DAILY levothyroxine 50 MCG tablet 50 mcg PO DAILY duloxetine 30 mg capsule,delayed release(DR/EC) 30 mg PO QHS Patient Comments: takes @ HS spironolactone 25 mg tablet 12.5 mg PO DAILY Qty: 30 2RF oxycodone 5 mg tablet 5 mg PO DAILY PRN PRN (Reason: pain) warfarin 2 mg tablet 4 mg PO DAILY Qty: 30 0RF Protocol: Dose Management Condition: Friday Dose/Route: 4 mg Instruction: 2 x 2 mg tablets Condition: Friday Dose/Route: 4 mg Instruction: 2 x 2 mg tablets Condition: Friday Dose/Route: 4 mg Instruction: 2 x 2 mg tablets Condition: Friday Dose/Route: 4 mg Instruction: 2 x 2 mg tablets Condition: Dose/Route: 4 mg Instruction: 2 x 2 mg tablets Condition: Friday Dose/Route: 4 mg Instruction: 2 x 2 mg tablets Condition: Friday Dose/Route: 4 mg Instruction: 2 x 2 mg tablets Protocol Text: Adjustment Start Date: Friday04/30/23 INR Value: 2.3 INR Date: 04/29/23 Rx Instructions: 4 mg orally FRIDAY-Friday and (6mg) ON Friday and Friday. metoprolol tartrate 50 mg tablet 50 mg PO BID Qty: 1 0RF furosemide [Lasix] 40 mg tablet 40 mg PO BID Qty: 180 3RF Referrals / Follow Up: Susie Dang DO [Primary Care Provider] - 05/14/23 9:45 am Daryl Huitron MD [Med Staff - Active Staff] - Within 2 Weeks Disposition Disposition (needs filled in before D/C Order can be placed): Home, Self Care
--- NOTE | 2023-05-09 12:49 | DS.PCM_ITS ---
Providers Date of Admission: 05/07/23 Date of Discharge: 05/09/23 Primary Care Physician: Dr. Susie Dang, Consultations 05/07/23 21:54 Consult: Cardiology Routine Consulting Provider: Daryl Huitron Reason for Consult: NSTEMI EMERGENT Consult: No MD Notified: Yes Date Notified: 05/07/23 Time Notified: 20:13 Method of Notification: Text Reason For Visit: NSTEMI,UTI, ADULT FTT Diagnosis Discharge Diagnosis (1) Persistent atrial fibrillation: Status: Acute Code(s): I48.19 - Other persistent atrial fibrillation (2) Non-ST elevation RI (NSTEMI): Status: Acute Code(s): I21.4 - Non-ST elevation (NSTEMI) myocardial infarction Plan The patient is an 87 y/o F with multiple comorbidities was admitted with generalized weakness, significant debility and fall, stated right lower extremity gave out and hit her head. No LOC. Mild headache resolved. #1. Acute NSTEMI (reports fatigue): Patient is admitted in PCU. Twelve-lead EKG shows paced rhythm without evidence of ischemia. Chest x-ray no acute cardiopulmonary finding. Troponin was elevated 1098, 1338 and 1427. patient just had chest pain felt like a pressure going to back intrascapular area. Lipid profile within normal limit, LDL 52. Discussed with the paper machine operator which was consulted. Medical management baby aspirin, metoprolol, Nitropaste and atorvastatin. INR subtherapeutic 1.0.Heparin drip changed to enoxaparin 1 mg/kg body weight because creatinine clearance is about 30 mill per minute. Repeat limited echo is ordered. No plan for cardiac cath. Pacemaker interrogation does not show NSVT V. tach or malignant arrhythmia 05/09: Patient does not have chest pain or shortness of breath. Was evaluated by paper machine operator and okay for discharge. 2D echo shows EF 65%. Mild MR. LA sever angie enlarged. Trivial AI. varnish thinner shows paced rhythm. #2. Acute Complicated Urinary Tract Infection: Patient herself denies new lower urinary tract symptoms including burning micturition, increased frequency or urgency. Empirically on IV ceftriaxone. 05/09: Urine culture shows E. coli [id number] and GPC possible Enterococcus 1000-10,000 therefore 2 organism more suspicion of colonization/contamination. But has UA positive for nitrite, LE and pyuria therefore prescription for Keflex for 5 days sent to patient's pharmacy. #3. Mechanical fall with debility, intermittent chronic RLE debility, decline in adult failure to thrive: Multifactorial secondary to acute presentation as noted #1, #2, CT brain and cervical spine with no acute findings, maintain on fall precautions, PT/OT/case management consulted for discharge planning. #4. Diabetes mellitus type II with chronic neuropathy: From current list on a regimen, he will A1c requested be cautious, in the interim will maintain on ADA diet, accu checks w/ ISS. A1c 5.9%. Consistent with good glucose control #5. Valvular heart disease: Status post chart reported history of MV repair, most recent echocardiogram noted 01/03/2023 with severely enlarged LA, mild MVI, EF 60%. #6. 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 CT chest 08/15/2016 with no mediastinal adenopathy. From oncology records receives IVIG monthly if IgG is less than 500. Encouraged continued outpatient follow-up and evaluation per oncology. #7. CAD: Status post CABG x 3 (BARBER to LAD, SVG to RCA, SVG to OM and septal myomectomy 01/15/2011) and PCI ([id number] LCx w/ 2.75 x 28 mm Promus Element and JANELL proximal LCx w/ 3.5 x 12 mm Promus 06/17/2011), given presentation as noted holding Coumadin with subtherapeutic INR with transition to heparin, continue aspirin, continue statin therapy, metoprolol, not on CHANDLER inhibitor/ARB. #8. Chronic HFpEF: Echo as noted above, will continue aspirin, statin, metoprolol, not on CHANDLER and or/ARB, continue spironolactone as well as Lasix therapy with judicious hydration if necessary. #9. Obstructive hypertrophic cardiomyopathy: Encourage continued close follow- up with cardiology, consulted as noted, continued on aspirin, statin, metoprolol, not on CHANDLER or/ARB, diuretics for underlying HFpEF as noted concurre ntly #10. PAF/flutter: We will continue patient on metoprolol regimen, will hold Coumadin with INR subtherapeutic and transition as noted to heparin drip given acute presentation #1. 05/09: INR is still subtherapeutic 1.0. Patient on enoxaparin. As patient has high probability of bleeding and also on baby aspirin and therefore warfarin dose increased with discontinuation of Lovenox. Patient is discharged on warfarin of 4 mg Friday to Friday and 6 mg on Friday and Friday with 6 mg total1 dose given today before discharge. Next warfarin dose will be tomorrow. This was communicated to the patient nurse. #11. Chronic Kidney Disease Stage III, unclear subtype: Admission BUN/Cr 41/1.40, baseline renal function primarily 1.2-1.4, 05/09: Patient BUNs/creatinine Went up slightly but still on baseline 35/1.46. #12. History of TIA: Will continue aspirin, holding Coumadin with transition as noted to heparin drip, continue statin therapy, hypertensive regimen and evaluation of diabetic history as noted. #13. Anxiety and depression: We will continue patient home duloxetine regimen. #14. Hypertension: Continue home regimen including spironolactone, metoprolol, Lasix, PRN hydralazine. #15. Hyperlipidemia: Continue home statin regimen. 05/09: Lipid profile within normal limit. #16. History complete heart block: Status post permanent pacemaker. Interrogation requested. #17. Hypothyroidism: We will continue patient home levothyroxine regimen. #18. DVT prophylaxis: We will continue heparin drip as noted, Coumadin subtherapeutic, holding. #19. CODE status: Patient GREG is her niece Jenny and living will is currently in place. Discussed CODE status at length including difference between FULL code, DNR-CCA and DNR-CC status. Following discussions about the differen yolie in these status, requested DNR-CCA, no intubation status. Discharge medication reconciliation done. Discharge follow-up instructions completed. Discharge process discussed with the patient and all questions were answered to patient's satisfaction. Follow with PCP in 1 to 2 weeks Total time spent, exact 35 minutes on discharge meds reconciliation, examination, coordination of care with nurses and ancillary staff, review of imaging and blood test and discussion with the patient on follow-up instructions. Microbiology Past 72 Hours 05/07/23 18:20 Urine, Catheterized Urine Culture - Preliminary Escherichia coli GPC Poss Enterococcus sp Laboratory Results 05/08/23 16:19: POC Glucose 134 H 05/08/23 20:46: POC Glucose 139 H 05/09/23 05:30: WBC 5.9, RBC 4.46, Hgb 14.1, Hct 43.7, MCV 98.0, MCH 31.6, MCHC 32.3, RDW Std Deviation 50.4 H, RDW Coeff of Patrice 14.0, Plt Count 181, MPV 10.8, Immature Gran % (Auto) 0.300, Neut % (Auto) 67.4, Lymph % (Auto) 19.9, Aurora % (Auto) 9.9, Eos % (Auto) 2.2, Baso % (Auto) 0.3, Absolute Neuts (auto) 4.0, Absolute Lymphs (auto) 1.17, Nucleated RBC % 0, PT 13.3, INR 1.0, Sodium 137, Potassium 3.8, Chloride 104, Carbon Dioxide 28.0, Anion Gap 5, BUN 35 H, Creatinine 1.46 H, Estim Creat Clear Calc 28.59, Est GFR (MDRD) Af Amer 44 L, Est GFR (MDRD) Non-Af 36 L, BUN/Creatinine Ratio 24.0 H, Glucose 142 H, Calcium 9.7 05/09/23 06:06: POC Glucose 126 H 05/09/23 11:23: POC Glucose 164 H Echocardiogram 05/07/23 21:54 Interpretation Summary The estimated ejection fraction is 65 %. Unable to assess diastolic dysfunction. The left atrium is severely enlarged. Mild (1+) mitral valve insufficiency. Trivial aortic valve insufficiency. Medications at Discharge Home Medications cholecalciferol (vitamin D3) 125 mcg (5,000 unit) capsule 1 tab PO DAILY 05/18/15 duloxetine 60 mg capsule,delayed release 60 mg PO DAILY 04/11/16 gabapentin 300 mg capsule 300 mg PO TID 10/28/16 simvastatin 40 mg tablet 40 mg PO QHS 10/28/16 arginine (L-arginine) 500 mg tablet 500 mg PO BID 10/29/17 cyanocobalamin (vitamin B-12) 500 mcg tablet 1,000 mcg PO DAILY 11/26/17 levothyroxine 50 mcg tablet 50 mcg PO DAILY 12/24/17 vit C 250 mg-vit E 90 mg-zinc 40 mg-copper 1 [id number]-pccavx capsule (PreserVision AREDS-2) 1 tab PO BID 01/24/21 acyclovir 800 mg tablet 800 mg PO BID 05/16/21 metoprolol tartrate 50 mg tablet 50 mg PO BID #1 TAB 10/22/22 duloxetine 30 mg capsule,delayed release 30 mg PO QHS 11/01/22 spironolactone 25 mg tablet 12.5 mg (1/2 x 25 mg) PO DAILY #30 tabs 01/04/23 furosemide 40 mg tablet (Lasix) 40 mg PO BID #180 tabs 01/30/23 oxycodone 5 mg tablet 5 mg PO DAILY PRN PRN pain 05/07/23 aspirin 81 mg tablet,delayed release 81 mg PO BREAKFAST 30 days #30 tabs 05/09/23 cephalexin 500 mg capsule 500 mg PO TID 5 days #15 caps 05/09/23 isosorbide mononitrate 60 mg tablet,extended release 24 hr 60 mg PO DAILY 30 days #30 tabs 05/09/23 sennosides 8.6 mg-docusate sodium 50 mg tablet (Stool Softener-Stimulant Laxative) 2 tab PO BID PRN PRN Constipation #0 tabs 05/09/23 warfarin 2 mg tablet 4 mg PO DAILY #30 tabs 05/09/23 Physical Exam Narrative seen and examined. In the morning when seen patient did not had chest pain but nurse informed that patient felt like chest pain . Seen again. Chest pain felt like a heaviness about lasting for about 10 minutes getting better with radiation to interscapular area. No acute shortness of breath. Feels fatigue. Mild dizziness but no diaphoresis. Discussed with the paper machine operator. Physical exam general: Alert, Oriented x3, Cooperative HEENT: Atraumatic, PERRLA, EOMI, Normocephalic Oral: No Gingival or Mucosal Lesions/ Ulcerations Neck: Supple, No JVD, Negative Carotid Bruits Chest wall/Lungs: Air entry diminished in bilateral lung bases. No crepitation/rhonchi Cardiovascular: paced rhythm, S1-S2 normal. Ejection systolic murmur over right second ICS, pansystolic murmur cardiac apex with radiation to left axilla. Abdomen: Bowel Sounds Present, Soft, Non Tender, Non-Distended : No renal angle tenderness. No suprapubic tenderness. Extremities: mild pitting edema, Capillary Refill Less than 3 Seconds Skin: Patchy erythematous chronic rash probably palpable purpura suggestive of leukocytoclastic vasculitis/CLL Musculoskeletal: No Tenderness to Palpation of Joints or Extremities Neurological: Cranial nerves II-XII grossly intact, DTR 2+/4. No acute focal neurological deficit. Psych/Mental Status: Flat affect. Weight / BMI Weight Weight: 164 lb 0.383 oz Body Mass Index (BMI) 25.7 ABG / Lab / Microbiology Data 05/09/23 05:30 05/09/23 05:30 Laboratory: Laboratory Results - last 24 hr 05/08/23 16:19: POC Glucose 134 H 05/08/23 20:46: POC Glucose 139 H 05/09/23 05:30: WBC 5.9, RBC 4.46, Hgb 14.1, Hct 43.7, MCV 98.0, MCH 31.6, MCHC 32.3, RDW Std Deviation 50.4 H, RDW Coeff of Patrice 14.0, Plt Count 181, MPV 10.8, Immature Gran % (Auto) 0.300, Neut % (Auto) 67.4, Lymph % (Auto) 19.9, Aurora % (Auto) 9.9, Eos % (Auto) 2.2, Baso % (Auto) 0.3, Absolute Neuts (auto) 4.0, Absolute Lymphs (auto) 1.17, Nucleated RBC % 0, PT 13.3, INR 1.0, Sodium 137, Potassium 3.8, Chloride 104, Carbon Dioxide 28.0, Anion Gap 5, BUN 35 H, Creatinine 1.46 H, Estim Creat Clear Calc 28.59, Est GFR (MDRD) Af Amer 44 L, Est GFR (MDRD) Non-Af 36 L, BUN/Creatinine Ratio 24.0 H, Glucose 142 H, Calcium 9.7 05/09/23 06:06: POC Glucose 126 H 05/09/23 11:23: POC Glucose 164 H Microbiology: Microbiology 05/07/23 18:20 Urine, Catheterized Urine Culture - Preliminary Escherichia coli GPC Poss Enterococcus sp Radiography Diagnostic Testing: Radiology Impression Echocardiogram 05/07/23 21:54 Interpretation Summary The estimated ejection fraction is 65 %. Unable to assess diastolic dysfunction. The left atrium is severely enlarged. Mild (1+) mitral valve insufficiency. Trivial aortic valve insufficiency. Ordering Physician: Ana Mccurdy Referring Physician: Susie Dang; Daryl Huitron Performed By: Brandi Pennington, RDCS, RVT D/C Instructions Discharge Diet: No restrictions Weight Bearing Status: Weight bearing as tolerated Call your doctor if you observe: Fever of 101 or Higher, Coldness, Increased Pain, Numbness or Tingling, Change in Color, Inability to urinate, Inability to have a bowel movement, Using more than 1 pad per hour, Shortness of breath, Dizziness, Fainting spells, Swelling in the ankles, Chest pain, Prolonged hiccupping, Increased palpitations (irregular heartbeat) and Calf discomfort When: IN 2 WEEKS Meaningful Use Info Meaningful Use Diagnoses (Choose all that apply): AMI AMI/Post PCI/Angioplasty Aspirin given w/in 24hrs of arrival?: Yes ASA at discharge?: Yes Statins at discharge?: Yes Chandler/ARB at discharge?: No Reason Chandler/ARB not ordered:: Worsening renal dysfunctn Beta Deya at discharge?: Yes Done w/ Acute RI measure.: Yes Discharge Plan Admission Admit Date/Time: 05/07/23 20:11 Primary Reason for Your Visit: Non-STEMI. Attending Provider: Diego Simms Primary Care Provider: Susie Dang Consulting Providers: Daryl Huitron; Ana Mccurdy Discharge Orders/Prescriptions Prescriptions: New isosorbide mononitrate 60 mg Tablet Extended Release 24 Hr 60 mg PO DAILY 30 Days Qty: 30 2RF sennosides-docusate sodium [Stool Softener-Stimulant Laxat] 8.6-50 mg Tablet 2 tab PO BID PRN PRN (Reason: Constipation) Qty: 0 0RF aspirin 81 mg Tablet,Delayed Release (Dr/Ec) 81 mg PO BREAKFAST 30 Days Qty: 30 3RF Rx Instructions: Discontinue if platelet count drops less than 50,000 or hemoglobin less than 8 g% cephalexin 500 mg capsule 500 mg PO TID 5 Days Qty: 15 0RF Continued PreserVision AREDS-2 250-90-40-1 mg capsule 1 tab PO BID acyclovir 800 mg tablet 800 mg PO BID cholecalciferol (vitamin D3) 5,000 UNIT capsule 1 tab PO DAILY duloxetine 60 MG capsule,delayed release(DR/EC) 60 mg PO DAILY gabapentin 300 MG capsule 300 mg PO TID simvastatin 40 MG tablet 40 mg PO QHS arginine (L-arginine) 500 MG tablet 500 mg PO BID cyanocobalamin (vitamin B-12) 500 MCG tablet 1,000 mcg PO DAILY levothyroxine 50 MCG tablet 50 mcg PO DAILY duloxetine 30 mg capsule,delayed release(DR/EC) 30 mg PO QHS Patient Comments: takes @ HS spironolactone 25 mg tablet 12.5 mg PO DAILY Qty: 30 2RF oxycodone 5 mg tablet 5 mg PO DAILY PRN PRN (Reason: pain) warfarin 2 mg tablet 4 mg PO DAILY Qty: 30 0RF Protocol: Dose Management Condition: Friday Dose/Route: 4 mg Instruction: 2 x 2 mg tablets Condition: Friday Dose/Route: 4 mg Instruction: 2 x 2 mg tablets Condition: Friday Dose/Route: 4 mg Instruction: 2 x 2 mg tablets Condition: Friday Dose/Route: 4 mg Instruction: 2 x 2 mg tablets Condition: Dose/Route: 4 mg Instruction: 2 x 2 mg tablets Condition: Friday Dose/Route: 4 mg Instruction: 2 x 2 mg tablets Condition: Friday Dose/Route: 4 mg Instruction: 2 x 2 mg tablets Protocol Text: Adjustment Start Date: Friday04/30/23 INR Value: 2.3 INR Date: 04/29/23 Rx Instructions: 4 mg orally FRIDAY-Friday and (6mg) ON Friday and Friday. metoprolol tartrate 50 mg tablet 50 mg PO BID Qty: 1 0RF furosemide [Lasix] 40 mg tablet 40 mg PO BID Qty: 180 3RF Referrals / Follow Up: Susie Dang DO [Primary Care Provider] - 05/14/23 9:45 am Daryl Huitron MD [Med Staff - Active Staff] - Within 2 Weeks Disposition Disposition (needs filled in before D/C Order can be placed): Home, Self Care Charges/Coding Visit Charges Inpatient E&M: 61005 Disch Hosp >30min
--- NOTE | 2023-05-09 13:30 | CASEMGMT ---
PIERRE VILLAGRAN received call back from [facility] and patient was accepted with start of care planned for Friday. PIERRE VILLAGRAN in to update patient and nephew. Patient and nephew had no further questions or concerns.
--- NOTE | 2023-05-09 13:34 | PHA.DC.MC.R ---
Pharmacy [facility] has performed discharge medication reconciliation and counseling for this patient. The patient's discharge medication list was reviewed for discrepancies and discrepancies were resolved. The patient was counseled on the following discharge medications and changes in medications for homegoing were reviewed. The Reason for Use, instructions for use, and potential side effects were reviewed for all new medications. The patient's questions regarding all of their medications were answered. 1. Aspirin 81 mg PO daily 2. Isosorbide mononitrate 60 mg PO daily 3. Cephalexin 500 mg PO TID x 5 days 2. Senna/docusate 2 tabs PO BID PRN constipation The patient was able to verbally demonstrate an understanding of their discharge medications. Medications at Discharge Home Medications cholecalciferol (vitamin D3) 125 mcg (5,000 unit) capsule 1 tab PO DAILY 05/18/15 duloxetine 60 mg capsule,delayed release 60 mg PO DAILY 04/11/16 gabapentin 300 mg capsule 300 mg PO TID 10/28/16 simvastatin 40 mg tablet 40 mg PO QHS 10/28/16 arginine (L-arginine) 500 mg tablet 500 mg PO BID 10/29/17 cyanocobalamin (vitamin B-12) 500 mcg tablet 1,000 mcg PO DAILY 11/26/17 levothyroxine 50 mcg tablet 50 mcg PO DAILY 12/24/17 vit C 250 mg-vit E 90 mg-zinc 40 mg-copper 1 [id number] capsule (PreserVision AREDS-2) 1 tab PO BID 01/24/21 acyclovir 800 mg tablet 800 mg PO BID 05/16/21 metoprolol tartrate 50 mg tablet 50 mg PO BID #1 TAB 10/22/22 duloxetine 30 mg capsule,delayed release 30 mg PO QHS 11/01/22 spironolactone 25 mg tablet 12.5 mg (1/2 x 25 mg) PO DAILY #30 tabs 01/04/23 furosemide 40 mg tablet (Lasix) 40 mg PO BID #180 tabs 01/30/23 oxycodone 5 mg tablet 5 mg PO DAILY PRN PRN pain 05/07/23 aspirin 81 mg tablet,delayed release 81 mg PO BREAKFAST 30 days #30 tabs 05/09/23 cephalexin 500 mg capsule 500 mg PO TID 5 days #15 caps 05/09/23 isosorbide mononitrate 60 mg tablet,extended release 24 hr 60 mg PO DAILY 30 days #30 tabs 05/09/23 sennosides 8.6 mg-docusate sodium 50 mg tablet (Stool Softener-Stimulant Laxative) 2 tab PO BID PRN PRN Constipation #0 tabs 05/09/23 warfarin 2 mg tablet 4 mg PO DAILY #30 tabs 24
[2023-05-09 14:06] VITALS: BP 134/51; PULSE 60; RESP 18; TEMP 36.4; O2SAT 100
== END 2023-05-09 14:53 | disposition home health service (06) | DRG 281 ==
LOC: ED 20:13 → PCU 20:36
PROVIDERS: Admitting Provider Family Medicine; Emergency Provider Emergency Medicine; PCP Internal Medicine; Referring Provider Emergency Medicine; Visit Provider Internal Medicine
DX: I21.4 Non-ST elevation (NSTEMI) myocardial infarction (principal); I13.0 Hypertensive heart and chronic kidney disease with heart failure and stage 1 through stage 4 chronic kidney disease, or unspecified chronic kidney disease; I44.2 Atrioventricular block, complete; I42.1 Obstructive hypertrophic cardiomyopathy; I48.11 Longstanding persistent atrial fibrillation; C91.10 Chronic lymphocytic leukemia of B-cell type not having achieved remission; I50.32 Chronic diastolic (congestive) heart failure; I48.20 Chronic atrial fibrillation, unspecified; N39.0 Urinary tract infection, site not specified; R62.7 Adult failure to thrive; B95.2 Enterococcus as the cause of diseases classified elsewhere; E11.22 Type 2 diabetes mellitus with diabetic chronic kidney disease; N18.30 Chronic kidney disease, stage 3 unspecified; E11.40 Type 2 diabetes mellitus with diabetic neuropathy, unspecified; I48.0 Paroxysmal atrial fibrillation; E03.9 Hypothyroidism, unspecified; F32.A Depression, unspecified; I34.0 Nonrheumatic mitral (valve) insufficiency; E78.5 Hyperlipidemia, unspecified; I25.10 Atherosclerotic heart disease of native coronary artery without angina pectoris; R54 Age-related physical debility; W18.39XA Other fall on same level, initial encounter; F41.9 Anxiety disorder, unspecified; M62.81 Muscle weakness (generalized); B96.20 Unspecified Escherichia coli [E. coli] as the cause of diseases classified elsewhere; Z66 Do not resuscitate; Z68.25 Body mass index [BMI] 25.0-25.9, adult; Z95.0 Presence of cardiac pacemaker; Z95.1 Presence of aortocoronary bypass graft; Z95.5 Presence of coronary angioplasty implant and graft; Z79.82 Long term (current) use of aspirin; Z79.01 Long term (current) use of anticoagulants; Z79.899 Other long term (current) drug therapy; Z86.16 Personal history of COVID-19; Z86.73 Personal history of transient ischemic attack (TIA), and cerebral infarction without residual deficits; Z82.49 Family history of ischemic heart disease and other diseases of the circulatory system
CPT/HCPCS: 36415; 70450; 71045; 72125; 80048; 80053; 80061; 81001; 82962; 83036; 83735; 84484; 85025; 85610; 85730; 87077; 87086; 87088; 87186; 93005; 93306; 94668; 97162; 97166; 97530; 97535; 97802; 99252; 99285; J7030; J7050; Q9957; A4216; G0463

== ENCOUNTER → 2023-05-12 | Outpatient (CLI) | payer MEDICARE, OTHER, SELFPAY ==
[2023-05-12 12:30] LABS: Absolute Neutrophil Count 6.4 X10^3/uL (2.0-7.7); Basophil# 0.02 X10^3/uL; Basophil% 0.2 % (0-1); Eosinophil# 0.11 X10^3/uL; Eosinophils% 1.4 % (0-5); Hematocrit 41.4 % (37-47); Hemoglobin 13.4 g/dL (12.0-15.0); Lymphocyte % 8.7 % (19-41); Mean Corp Hgb Conc 32.4 g/dL (32-36); Mean Corpuscular Hgb 31.8 pg (27.0-32.0); Mean Corpuscular Volume 98.3 fL (81-99); Mean Platelet Vol. 10.9 fl (6.2-12.0); Monocyte# 0.69 X10^3/uL; Monocyte% 8.6 % (0-10); NRBC Flagged by Analyzer 0 % (0-5); Neutrophil # 6.44 X10^3/uL (2.7-7.7); Neutrophil % 80.5 % (47-70); Platelet Count 191 K/mm3 (150-450); RBC Distribution Width CV 14.2 % (11.6-14.6); RBC Distribution Width SD 50.9 fl (35.1-43.9); Red Blood Count 4.21 M/mm3 (4.2-5.4)
[2023-05-12 13:58] LABS: ALB/GLOB Ratio 1.1 RATIO (0.9-2.4); AST(SGOT) 18 U/L (15-37); Alanine Aminotransfer ALT/SGPT 20 U/L (13-56); Albumin, Serum 3.7 g/dL (3.2-5.0); Alkaline Phosphatase 54 U/L (45-117); Anion Gap 6 (5-15); BUN 46 mg/dL (7-18); BUN/Creat Ratio 30.3 RATIO (10-20); Calcium,Total 9.4 mg/dL (8.5-10.1); Chloride 105 mmol/L (98-107); Creatinine, Serum 1.52 mg/dL (0.55-1.02); EST Glomerular Filtration Rate 34 mL/min (>60); Est Glom Filt Rate - Afr Amer 42 mL/min (>60); Globulin 3.5 g/dL (2.2-4.2); Glucose 154 mg/dL (74-106); LDH 227 U/L (84-246); Potassium 4.1 mmol/L (3.5-5.1); Protein, Total 7.2 g/dL (6.4-8.2); Sodium Level 136 mmol/L (136-145)
[2023-05-13 05:08] LABS: Immunoglobulin G 519 mg/dL (586-1602)
== END | disposition home or self-care (01) ==
PROVIDERS: Nurse Practitioner Family; PCP Internal Medicine; Referring Provider Internal Medicine Medical Oncology; Visit Provider Internal Medicine Medical Oncology
DX: C91.10 Chronic lymphocytic leukemia of B-cell type not having achieved remission (principal); D80.1 Nonfamilial hypogammaglobulinemia
CPT/HCPCS: 36415; 80053; 82784; 83615; 85025

== ENCOUNTER 2023-05-19 10:40 | Outpatient (RCR) | payer MEDICARE, OTHER, SELFPAY ==
[2023-05-19 12:12] LABS: International Normalized Ratio 2.5; Prothrombin Time (Protime)PT. 27.1 SECONDS (11.7-14.9)
[2023-05-19 13:06] LABS: ALB/GLOB Ratio 1.2 RATIO (0.9-2.4); AST(SGOT) 15 U/L (15-37); Alanine Aminotransfer ALT/SGPT 19 U/L (13-56); Alkaline Phosphatase 58 U/L (45-117); Anion Gap 6 (5-15); BUN 41 mg/dL (7-18); BUN/Creat Ratio 25.9 RATIO (10-20); Calcium,Total 9.8 mg/dL (8.5-10.1); Chloride 102 mmol/L (98-107); Creatinine, Serum 1.58 mg/dL (0.55-1.02); EST Glomerular Filtration Rate 33 mL/min (>60); Est Glom Filt Rate - Afr Amer 40 mL/min (>60); Globulin 3.4 g/dL (2.2-4.2); Glucose 131 mg/dL (74-106); Protein, Total 7.4 g/dL (6.4-8.2); Sodium Level 136 mmol/L (136-145)
== END 2023-06-12 18:00 | disposition home or self-care (01) ==
LOC: MTLAB 10:40
PROVIDERS: PCP Internal Medicine; Referring Provider Physician Assistant Medical; Visit Provider Physician Assistant Medical
DX: Z79.01 Long term (current) use of anticoagulants (principal); N39.0 Urinary tract infection, site not specified; I48.0 Paroxysmal atrial fibrillation; I48.92 Unspecified atrial flutter
CPT/HCPCS: 36415; 80053; 85610; 87086

== ENCOUNTER → 2023-05-20 | Outpatient (CLI) | payer MEDICARE, OTHER, SELFPAY | END | disposition home or self-care (01) | LOC: MTLAB 11:21 | PROVIDERS: PCP Internal Medicine; Referring Provider Internal Medicine; Visit Provider Internal Medicine | DX: N18.30 Chronic kidney disease, stage 3 unspecified (principal); N39.0 Urinary tract infection, site not specified | CPT/HCPCS: 87077; 87086; 87088; 87186 ==

== ENCOUNTER → 2023-06-06 | Outpatient (CLI) | payer MEDICARE, OTHER, SELFPAY ==
[2023-06-07 05:07] LABS: Immunoglobulin G 394 mg/dL (586-1602)
== END | disposition home or self-care (01) ==
LOC: MTLAB 11:03
PROVIDERS: PCP Internal Medicine; Referring Provider Nurse Practitioner Family; Visit Provider Nurse Practitioner Family
DX: D80.1 Nonfamilial hypogammaglobulinemia (principal); C91.10 Chronic lymphocytic leukemia of B-cell type not having achieved remission
CPT/HCPCS: 36415; 82784

== ENCOUNTER 2023-06-11 10:59 | Outpatient (RCR) | payer MEDICARE, OTHER, SELFPAY ==
[2023-05-26 14:54] LABS: International Normalized Ratio 1.3; Prothrombin Time (Protime)PT. 15.9 SECONDS (11.7-14.9)
[2023-06-11 13:20] LABS: International Normalized Ratio 4.3
== END 2023-06-12 18:00 | disposition home or self-care (01) ==
LOC: LAB 10:59
PROVIDERS: PCP Internal Medicine; Referring Provider Internal Medicine Cardiovascular Disease; Visit Provider Internal Medicine Cardiovascular Disease
DX: I48.0 Paroxysmal atrial fibrillation (principal); Z79.01 Long term (current) use of anticoagulants
CPT/HCPCS: 36415; 85610

== ENCOUNTER 2023-06-25 09:45 | Outpatient (RCR) | payer MEDICARE, OTHER, SELFPAY ==
[2023-06-18 12:53] LABS: International Normalized Ratio 2.3; Prothrombin Time (Protime)PT. 25.2 SECONDS (11.7-14.9)
[2023-06-25 12:35] LABS: International Normalized Ratio 2.4; Prothrombin Time (Protime)PT. 25.6 SECONDS (11.7-14.9)
== END 2023-07-13 02:10 | disposition home or self-care (01) ==
LOC: MTLAB 09:45
PROVIDERS: PCP Internal Medicine; Referring Provider Physician Assistant Medical; Visit Provider Physician Assistant Medical
DX: Z79.01 Long term (current) use of anticoagulants (principal); I48.0 Paroxysmal atrial fibrillation; I48.92 Unspecified atrial flutter
CPT/HCPCS: 36415; 85610

== ENCOUNTER 2023-07-08 10:45 | Outpatient (RCR) | payer MEDICARE, OTHER, SELFPAY ==
[2023-06-17 10:03] VITALS: BP 118/59; PULSE 66; RESP 18; TEMP 35.8
--- NOTE | 2023-06-17 10:57 | HP.PCM_ITS ---
History of Present Illness Date of Service: 06/17/23 Chief Complaint: Right lower extremity wound History of Wound: Patient is an 87-year-old female with history of atherosclerotic disease, peripheral vascular disease, Raynaud's, hyperlipidemia who presented to Dr. Dang office with new wound to the posterior aspect of her right lower extremity secondary to shoe gear rubbing against the back of her leg. States that she was placed on an antibiotic and had been applying antibiotic ointment to the wound. She was seen by me in office last week for her debridement of nails. She stated that she would be seen in the wound care center next week and thus I have not started treatment of the right lower extremity wound performing debridement of the wound in office. She states wound has been present for only a few weeks without improvement prior to seeking care. Progress of Wound: Patient has right lateral ankle wound in setting of venous insufficiency. [facility] Medical History Abnormal urine finding Atherosclerosis of coronary artery bypass graft without angina pectoris Atherosclerotic cardiovascular disease Atherosclerotic heart disease of [place] coronary artery without angina pectoris Bronchitis Chronic diastolic (congestive) heart failure Chronic lymphoid leukemia Complete heart block COVID-19 DM (diabetes mellitus), type 2 with peripheral vascular complications Essential (primary) hypertension Gout HLD (hyperlipidemia) Hypogammaglobulinemia, acquired Left bundle branch block (LBBB) Macular degeneration Mitral valve annular calcification Nonrheumatic mitral (valve) insufficiency Nonsustained ventricular tachycardia Obstructive hypertrophic cardiomyopathy Other specified transient cerebral ischemias Peripheral edema Persistent atrial fibrillation Proteinuria Skin tear of left upper extremity Uncontrolled hypertension URI (upper respiratory infection) Urinary frequency Home Medications cholecalciferol (vitamin D3) 125 mcg (5,000 unit) capsule 1 tab PO DAILY 05/18/15 [History Last Taken Unknown] duloxetine 60 mg capsule,delayed release 60 mg PO DAILY 04/11/16 [History Last Taken Unknown] gabapentin 300 mg capsule 300 mg PO TID 10/28/16 [History Last Taken 12/21/21] simvastatin 40 mg tablet 40 mg PO QHS 10/28/16 [History Last Taken Unknown] arginine (L-arginine) 500 mg tablet 500 mg PO BID 10/29/17 [History Last Taken Unknown] cyanocobalamin (vitamin B-12) 500 mcg tablet 1,000 mcg PO DAILY 11/26/17 [History Last Taken Unknown] levothyroxine 50 mcg tablet 50 mcg PO DAILY 12/24/17 [History Last Taken 12/21/21] vit C 250 mg-vit E 90 mg-zinc 40 mg-copper 1 qm-elkfdi-pbfelq capsule (PreserVision AREDS-2) 1 tab PO BID 01/24/21 [History Last Taken Unknown] acyclovir 800 mg tablet 800 mg PO BID 05/16/21 [History Last Taken Unknown] metoprolol tartrate 50 mg tablet 50 mg PO BID #1 TAB 10/22/22 [Rx Last Taken Unknown] duloxetine 30 mg capsule,delayed release 30 mg PO QHS 11/01/22 [History Last Taken Unknown] spironolactone 25 mg tablet 12.5 mg (1/2 x 25 mg) PO DAILY #30 tabs 01/04/23 [Rx Last Taken Unknown] furosemide 40 mg tablet (Lasix) 40 mg PO BID #180 tabs 01/30/23 [Rx Last Taken Unknown] oxycodone 5 mg tablet 5 mg PO DAILY PRN PRN pain 05/07/23 [History Last Taken Unknown] isosorbide mononitrate 60 mg tablet,extended release 24 hr 60 mg PO DAILY 30 days #30 tabs 05/09/23 [Rx Last Taken Unknown] sennosides 8.6 mg-docusate sodium 50 mg tablet (Stool Softener-Stimulant Laxative) 2 tab PO BID PRN PRN Constipation #0 tabs 05/09/23 [Rx Last Taken Unknown] warfarin 2 mg tablet 4 mg PO DAILY #30 tabs 05/09/23 [Rx Last Taken 01/02/23] oxybutynin chloride 10 mg tablet,extended release 24 hr 10 mg PO DAILY 05/26/23 [History Last Taken Unknown] sulfamethoxazole 800 mg-trimethoprim 160 mg tablet (Bactrim DS) 1 tab PO BID 06/12/23 [History Last Taken Unknown] Allergy/AdvReac Type Severity Reaction Status Date / Time amoxicillin trihydrate AdvReac Severe Vomiting Verified 06/12/23 09:19 [From Augmentin] lidocaine AdvReac Severe Other Verified 06/12/23 09:19 Penicillins AdvReac Severe Vomiting Verified 06/12/23 09:19 potassium clavulanate AdvReac Severe Vomiting Verified 06/12/23 09:19 [From Augmentin] Family History Father , age 86 CAD (coronary artery disease) Sister Asthma Mother Valvular heart disease Surgical History H/O coronary artery bypass surgery (01/15/11) History of appendectomy History of cholecystectomy History of coronary artery stent placement (06/17/11) History of electrophysiologic study (01/21/11) History of hysterectomy History of mitral valve repair (01/15/11) History of tonsillectomy nerve ablation for pain management Presence of permanent cardiac pacemaker (12/21/21) Social History household members: family housing: house Smoking Status: Never smoker alcohol intake: never substance use type: does not use caffeine: Yes Type: coffee Number of servings: 2 what type of physical activity do you participate in: walking and weight training frequency: 5-6 times per week ROS Constitutional Constitutional: Denies body ache(s), change in weight or fever(s) Eyes Eyes: Denies acute decrease in peripheral vision, change in eye color or change in vision ENT HEENT: Denies abnormal hearing, bleeding gums or dysphagia Cardiovascular Cardiovascular: Denies abdominal bloating, abdominal edema or bluish discoloration of hand/feet Vital Signs Vital Signs Vital Signs: 06/17/23 10:03 Temperature 96.4 F L Temperature Source Temporal Pulse Rate 66 Respiratory Rate 18 Blood Pressure 118/59 L Blood Pressure Mean 78 Blood Pressure Source Monitor Blood Pressure Position Semi-Fowlers Blood Pressure Location Left Arm Physical Exam Narrative Vascular: Dorsalis pedis posterior tibial pulses diminished bilateral feet. +1 pitting edema to right lower extremity. Signs of hemosiderin deposits as well as varicosities noted bilaterally. Neurologic: Light touch protective sensation intact bilateral feet. Dermatologic: Predebridement there is a necrotic lateral malleoli are wound. Postdebridement the wound was down to subcutaneous tissue demonstrate clean granular bleeding base. Clean skin edges. No deep probing undermining or signs of infection at current. Pre and postdebridement measurements documented nursing notes. Musculoskeletal: No sign DVT. Muscular strength full. No wound forming deformity noted. Debridement Note Debridement Note Post-Debridement Measurements and Additional Note: Post-Debridement Measurements/Treatment JO - Nurse 1 - General Ulcer Assessment Start: 06/17/23 10:03 Freq: Status: Active Protocol: ARNOLDO Activity Type Activity Date Activity User E-sign Co-sign Detail Recorded Client Recorded Date Recorded By Document 06/17/23 10:03 RB Desktop 06/17/23 10:12 RB 06/17/23 10:03 WC - Today's Visit Information Type of service Initial Visit Arrival Mode Ambulatory, Walker Transfer Assistance None Patient Identification Verified (Name & Yes ) Patient Requires Transmission-Based No Precautions Vital Signs Temperature (97.8 F-99.1 F) 96.4 F L Temperature Source Temporal Pulse Rate (60-100) 66 Pulse Location Monitor Respiratory Rate (12-18) 18 Respiratory rate source Observation Blood Pressure (90/60-120/80) 118/59 L Blood Pressure Mean 78 Source Monitor Position Semi-Fowlers Blood Pressure Location Left Arm History Since Last Visit- (Skip if this is Patient's initial visit) Left Footwear Regular Shoe Right Footwear Regular Shoe Pain Scale: 0-10 Numeric Is Patient Pain Free? No R ankle -Description Aching -Intensity 5 -Duration (hours) Acute -Pain Behavior Withdrawal from Touch -Pain Aggravating Factors ADL's -Alleviating Factors/Interventions Medication -Effectiveness of Alleviating Factor/ Minimally Intervention effective Lower Extremity Assessment/ Foot Assessment/ Toe Nail Assessment Right -Posterior Tibial Palpable No -Dorsalis Pedis Palpable No -Extremity Color Hyperpigmented -Hair Growth on Legs Yes -Hair Growth on Toes No -Temperature of Extremity Cool -Capillary Refill Less than 3 Seconds -Dependent Rubor No -Blanched when Elevated No -Lipodermatosclerosis No -Other Deformity No -Prior Foot Ulcer No -Charcot Joint No -Prior Amputation No -Thick Yes -Discolored Yes -Deformed No -Improper Length & Hygeine Yes Left -Posterior Tibial Palpable No -Dorsalis Pedis Palpable No -Extremity Color Pale, Hemosiderin -Hair Growth on Legs Yes -Hair Growth on Toes No -Temperature of Extremity Cool -Capillary Refill Less than 3 Seconds -Dependent Rubor No -Blanched when Elevated No -Lipodermatosclerosis No -Other Deformity No -Prior Foot Ulcer No -Charcot Joint No -Prior Amputation No -Thick Yes -Discolored Yes -Deformed No -Improper Length & Hygeine Yes Neuropathy Assessment Feet - Top Side and Bottom <Entered> (a) Communication Assessment Preferred language [place] [employer] Supervisor Required No Able to Read Yes Able to Write Yes Communication Tools None Caregiver Communication Skills No Impairment Impairment Right Hearing Abillity Hard of Hearing ,Use of Hearing Aid Left Hearing Abillity Hard of Hearing ,Use of Hearing Aid Visual Assistive Devices Glasses Teaching Assessment Preferences Verbal, Demonstration Readiness To Learn Good Willingness to Engage in Self Management Med Activies Readiness to Engage in Self Management Med Activities Anxiety Level Calm Cooperation Cooperative Perception Coherent Interest in Health Problem Asks Questions Education Importance Acknowledges Need Does Patient Smoke tobacco or other No substances Smoking Status Never smoker Functional Assessment Recent Decline in Ability to Perform Denies Any Declines Assistive Device With Patient No Culture/Voodoo/Epic Willow Analyst Cultural/Voodoo Needs that may affect No Treatment Plan Would you allow our hospital press puller to No meet you for the purpose of spiritual/ emotional support? Epic Willow Analyst to contact place of cheondoism No Teaching: Wound Center [facility] Orientation/ Contacting Physician -Person Taught Patient -Teaching Method Discussion -Response to teaching Verbalize understanding (a) 1 - + throughout - Nurse 1 - General Ulcer Measurement Start: 06/17/23 10:03 Freq: Status: Active Protocol: Activity Type Activity Date Activity User E-sign Co-sign Detail Recorded Client Recorded Date Recorded By Document 06/17/23 10:03 RB Desktop 06/17/23 10:12 RB 06/17/23 10:03 Wound Center Nurse 1 4. R ankle lateral -Combined with other wound No -Current Size (cm) - Length 1.1 -Current Size (cm) - Width 0.6 -Current Size (cm) - Depth 0.2 -Total Square Cm 0.66 -Photo Taken Yes -Tunneling No -Undermining/Tunneling No -Circular Undermining No -Exudate Amt Medium -Exudate Type Serosanguineous -Wound Margin Thickened & Rolled Under -Granulation Amt Small (1-33%) -Granulation Quality [place] -Slough/Fibrin Yes -Necrosis Amt Large (67-100%) -Necrotic Tissue Type Adherent Slough -Structure Exposed N/A -Texture (Chitra-wound Skin Appearance) Assessed, Scarring -Moisture (Chitra-wound Skin Appearance) Assessed -Color (Chitra-wound Skin Appearance) Assessed -Temperature (Chitra-wound Skin No Abnormality Appearance) (Pt Warm) -Tenderness on Palpation (Chitra-wound No Skin Appearance) -Ulcer Cleansing Wound Cleanser -Foul Odor after Cleansing No -Anesthetic Used 5% Lidocaine Gel Lower Limb Edema Present Yes Right Calf (cm) 31.5 Right Ankle (cm) 22.2 Left Calf (cm) 31.7 Left Ankle (cm) 22.6 WC - Nurse 2 - General Ulcer CM Notes Start: 06/17/23 10:03 Freq: Status: Active Protocol: Activity Type Activity Date Activity User E-sign Co-sign Detail Recorded Client Recorded Date Recorded By Document 06/17/23 10:33 Laptop 06/17/23 10:34 06/17/23 10:33 Wound Center Nurse 2 4. R ankle lateral -Time 10:33 -Correct Patient Yes -Correct Side, Site, Position Yes -Correct Procedure Yes -Procedure Performed Yes -Type of Procedure Debridement -Clinical Debridement Subcutaneous -Tissue Removed Subcutaneous -Post Debridement (cm) - Length 1.2 -Post Debridement (cm) - Width 1.1 -Post Debridement (cm) - Depth 0.4 -Total Square (Post) (cm) 1.32 -Area of Debridement (cm) - Length 1.2 -Area of Debridement (cm) - Width 1.1 -Total Square (Area) (cm) 1.32 -Tunneling No -Undermining/Tunneling No -Circular Undermining No -Wound/Ulcer Outcome Not Healed -Ulcer Cleansing Rinsed/ Irrigated with Saline -Foul Odor after Cleansing No -Bioengineered Tissue No -Bleeding Controlled with Pressure -Treatment Response Procedure Tolerated Well -Offloading No -Debridement - Subq, 1st 20sq cm Yes Pain Scale: 0-10 Numeric Is Patient Pain Free? Yes Assessment/Plan Assessment/Plan (1) Other specified peripheral vascular diseases: CODE(S): I73.89 - Other specified peripheral vascular diseases PLAN: Exam performed Previous radiographs reviewed, no concern for osteomyelitis. New arterial and venous studies ordered today. Wound likely related to venous insufficiency. Recommend compression elevation and exercise for edema management. Right lateral ankle wound was debrided excisionally down to including level of subcutaneous tissue of all nonviable tissue with pickups and #15 blade without incident. Hemostasis obtained with light compression. Patient tolerated procedure well. Topical anesthesia used. Pre and postdebridement measurements documented nursing notes. Plan for twice weekly application of hydrogel Adaptic and Unna boot Follow-up in 1 week Consider additional lab work to rule out anemia or immune compromise if there are any delays in healing. (2) Non-pressure chronic ulcer of right ankle with fat layer exposed: CODE(S): L97.312 - Non-pressure chronic ulcer of right ankle with fat layer exposed
--- NOTE | 2023-06-20 09:19 | WC ---
3.5.24 RT LAT ANKLE
[2023-06-20 12:13] VITALS: BP 132/58; PULSE 69; RESP 18; TEMP 36.3
[2023-06-24 09:57] VITALS: BP 129/66; PULSE 65; RESP 18; TEMP 36.1
--- NOTE | 2023-06-24 10:37 | PCM.WC.PN ---
History of Present Illness Date of Service: 06/24/23 Chief Complaint: Right lower extremity wound History of Wound: Patient is an 87-year-old female with history of atherosclerotic disease, peripheral vascular disease, Raynaud's, hyperlipidemia who presented to Dr. Dang office with new wound to the posterior aspect of her right lower extremity secondary to shoe gear rubbing against the back of her leg. States that she was placed on an antibiotic and had been applying antibiotic ointment to the wound. She was seen by me in office last week for her debridement of nails. She stated that she would be seen in the wound care center next week and thus I have not started treatment of the right lower extremity wound performing debridement of the wound in office. She states wound has been present for only a few weeks without improvement prior to seeking care. Progress of Wound: Patient has right lateral ankle wound in setting of venous insufficiency. Objective Data Objective Data Vital Signs: Vital Signs Temp Pulse Resp BP 97 F L 65 18 129/66 H 06/24/23 09:57 06/24/23 09:57 06/24/23 09:57 06/24/23 09:57 Physical Exam Narrative Vascular: Dorsalis pedis posterior tibial pulses diminished bilateral feet. +1 pitting edema to right lower extremity. Signs of hemosiderin deposits as well as varicosities noted bilaterally. Neurologic: Light touch protective sensation intact bilateral feet. Dermatologic: Predebridement there is a necrotic lateral malleoli are wound. Postdebridement the wound was down to subcutaneous tissue demonstrate clean granular bleeding base. Clean skin edges. No deep probing undermining or signs of infection at current. Pre and postdebridement measurements documented nursing notes. Musculoskeletal: No sign DVT. Muscular strength full. No wound forming deformity noted. Debridement Note Debridement Note Post-Debridement Measurements and Additional Note: Post-Debridement Measurements/Treatment JO - Nurse 1 - General Ulcer Assessment Start: 06/17/23 10:03 Freq: Status: Active Protocol: ARNOLDO Activity Type Activity Date Activity User E-sign Co-sign Detail Recorded Client Recorded Date Recorded By Document 06/17/23 10:03 RB Desktop 06/17/23 10:12 RB Document 06/20/23 12:13 KW Desktop 06/20/23 12:15 KW Document 06/24/23 09:57 RB Desktop 03/12/24 10:06 RB 06/17/23 06/20/23 06/24/23 10:03 12:13 09:57 WC - Today's Visit Information Type of service Initial Visit Nurse-only Follow-up Visit Visit (Physician/FORESTRY CONSULTANT ) Arrival Mode Ambulatory, Ambulatory, Ambulatory, Walker Wheelchair Walker Transfer Assistance None None Patient Identification Verified (Name & Yes Yes Yes ) Patient Requires Transmission-Based No No Precautions Vital Signs Temperature (97.8 F-99.1 F) 96.4 F L 97.4 F L 97 F L Temperature Source Temporal Temporal Temporal Pulse Rate (60-100) 66 69 65 Pulse Location Monitor Monitor Monitor Respiratory Rate (12-18) 18 18 18 Respiratory rate source Observation Observation Blood Pressure (90/60-120/80) 118/59 L 132/58 H 129/66 H Blood Pressure Mean (mm Hg) 78 82 87 Source Monitor Monitor Monitor Position Semi-Fowlers Semi-Fowlers Sitting Blood Pressure Location Left Arm Left Arm Right Arm History Since Last Visit- (Skip if this is Patient's initial visit) Have you changed medications since your No No last visit? Any new allergies or adverse reactions No No Had a fall/change in ADL's that may No No increase risk of falls Signs or symptoms of abuse and/or No No neglect since last visit Have you been in the hospital since your No No last visit? Has dressing in place as prescribed Yes Yes Has compression in place as prescribed No Yes Has offloadiing in place as prescribed No No Experienced any changes in pain level or No No management Left Footwear Regular Shoe Regular Shoe Regular Shoe Right Footwear Regular Shoe Regular Shoe Regular Shoe Pain Scale: 0-10 Numeric Is Patient Pain Free? No Yes Yes R ankle -Description Aching -Intensity 5 -Duration (hours) Acute -Pain Behavior Withdrawal from Touch -Pain Aggravating Factors ADL's -Alleviating Factors/Interventions Medication -Effectiveness of Alleviating Factor/ Minimally Intervention effective Lower Extremity Assessment/ Foot Assessment/ Toe Nail Assessment Right -Posterior Tibial Palpable No -Dorsalis Pedis Palpable No -Extremity Color Hyperpigmented -Hair Growth on Legs Yes -Hair Growth on Toes No -Temperature of Extremity Cool -Capillary Refill Less than 3 Seconds -Dependent Rubor No -Blanched when Elevated No -Lipodermatosclerosis No -Other Deformity No -Prior Foot Ulcer No -Charcot Joint No -Prior Amputation No -Thick Yes -Discolored Yes -Deformed No -Improper Length & Hygeine Yes Left -Posterior Tibial Palpable No -Dorsalis Pedis Palpable No -Extremity Color Pale, Hemosiderin -Hair Growth on Legs Yes -Hair Growth on Toes No -Temperature of Extremity Cool -Capillary Refill Less than 3 Seconds -Dependent Rubor No -Blanched when Elevated No -Lipodermatosclerosis No -Other Deformity No -Prior Foot Ulcer No -Charcot Joint No -Prior Amputation No -Thick Yes -Discolored Yes -Deformed No -Improper Length & Hygeine Yes Neuropathy Assessment Feet - Top Side and Bottom <Entered> (a) Communication Assessment Preferred language Thai Gas Pit Worker Required No Able to Read Yes Able to Write Yes Communication Tools None Caregiver Communication Skills No Impairment Impairment Right Hearing Abillity Hard of Hearing ,Use of Hearing Aid Left Hearing Abillity Hard of Hearing ,Use of Hearing Aid Visual Assistive Devices Glasses Teaching Assessment Preferences Verbal, Demonstration Readiness To Learn Good Willingness to Engage in Self Management Med Activies Readiness to Engage in Self Management Med Activities Anxiety Level Calm Cooperation Cooperative Perception Coherent Interest in Health Problem Asks Questions Education Importance Acknowledges Need Does Patient Smoke tobacco or other No substances Smoking Status Never smoker Functional Assessment Recent Decline in Ability to Perform Denies Any Declines Assistive Device With Patient No 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 to contact place of episcopalian No Teaching: Wound Center [facility] Orientation/ Contacting Physician -Person Taught Patient -Teaching Method Discussion -Response to teaching Verbalize understanding (a) 1 - + throughout - Nurse 1 - General Ulcer Measurement Start: 06/17/23 10:03 Freq: Status: Active Protocol: Activity Type Activity Date Activity User E-sign Co-sign Detail Recorded Client Recorded Date Recorded By Document 06/17/23 10:03 RB Desktop 06/17/23 10:12 RB Document 06/20/23 12:13 KW Desktop 06/20/23 12:15 KW Document 06/24/23 09:57 RB Desktop 06/24/23 10:06 RB 06/17/23 06/20/23 06/24/23 10:03 12:13 09:57 Wound Center Nurse 1 4. R ankle lateral -Combined with other wound No No -Current Size (cm) - Length 1.1 1.4 -Current Size (cm) - Width 0.6 0.9 -Current Size (cm) - Depth 0.2 0.4 -Total Square Cm 0.66 1.26 -Photo Taken Yes -Tunneling No No -Undermining/Tunneling No No -Circular Undermining No No -Exudate Amt Medium Medium -Exudate Type Serosanguineous Serosanguineous -Wound Margin Thickened & Thickened & Rolled Under Rolled Under -Granulation Amt Small (1-33%) Medium (34-66%) -Granulation Quality [place] -Slough/Fibrin Yes Yes -Necrosis Amt Large (67-100%) Large (67-100%) -Necrotic Tissue Type Adherent Slough Adherent Slough -Structure Exposed N/A N/A -Texture (Chitra-wound Skin Appearance) Assessed, Assessed Scarring -Moisture (Chitra-wound Skin Appearance) Assessed Assessed -Color (Chitra-wound Skin Appearance) Assessed Erythema -Temperature (Chitra-wound Skin No Abnormality No Abnormality Appearance) (Pt Warm) (Pt Warm) -Tenderness on Palpation (Chitra-wound No No Skin Appearance) -Ulcer Cleansing Wound Cleanser Wound Cleanser -Foul Odor after Cleansing No No -Anesthetic Used 5% Lidocaine 5% Lidocaine Gel Gel Lower Limb Edema Present Yes Yes Right Calf (cm) 31.5 33 30 Right Ankle (cm) 22.2 21 20.5 Left Calf (cm) 31.7 Left Ankle (cm) 22.6 WC - Nurse 2 - General Ulcer CM Notes Start: 06/17/23 10:03 Freq: Status: Active Protocol: Activity Type Activity Date Activity User E-sign Co-sign Detail Recorded Client Recorded Date Recorded By Document 06/17/23 10:33 Laptop 06/17/23 10:34 Document 06/24/23 10:12 Laptop 06/24/23 10:15 06/17/23 06/24/23 10:33 10:12 Wound Center Nurse 2 4. R ankle lateral -Time 10:33 10:12 -Correct Patient Yes Yes -Correct Side, Site, Position Yes Yes -Correct Procedure Yes Yes -Procedure Performed Yes Yes -Type of Procedure Debridement Debridement -Clinical Debridement Subcutaneous Subcutaneous -Tissue Removed Subcutaneous Subcutaneous -Post Debridement (cm) - Length 1.2 1.5 -Post Debridement (cm) - Width 1.1 1.0 -Post Debridement (cm) - Depth 0.4 0.2 -Total Square (Post) (cm) 1.32 1.50 -Area of Debridement (cm) - Length 1.2 1.5 -Area of Debridement (cm) - Width 1.1 1.0 -Total Square (Area) (cm) 1.32 1.50 -Tunneling No No -Undermining/Tunneling No No -Circular Undermining No No -Wound/Ulcer Outcome Not Healed Not Healed -Ulcer Cleansing Rinsed/ Rinsed/ Irrigated with Irrigated with Saline Saline -Foul Odor after Cleansing No No -Bioengineered Tissue No No -Bleeding Controlled with Pressure Pressure -Treatment Response Procedure Procedure Tolerated Well Tolerated Well -Offloading No No -Debridement - Subq, 1st 20sq cm Yes Yes Pain Scale: 0-10 Numeric Is Patient Pain Free? Yes Yes WC - Nurse 3 - General Ulcer D/C NN Start: 06/17/23 10:03 Freq: Status: Active Protocol: Activity Type Activity Date Activity User E-sign Co-sign Detail Recorded Client Recorded Date Recorded By Document 06/17/23 12:12 RB [id number] 06/17/23 12:14 RB Document 06/20/23 12:13 KW Desktop 06/20/23 12:15 KW Document 06/20/23 12:16 KW Desktop 06/20/23 12:16 KW Document 06/24/23 10:19 KW Desktop 06/24/23 10:20 KW 06/17/23 06/20/23 06/20/23 12:12 12:13 12:16 Wound Care Center Nurse 3 4. R ankle lateral -Ulcer Cleansing Rinsed/ Soap and Water Irrigated with Saline -Primary Dressing Applied NonAdherent NonAdherent Contact Layer Contact Layer -Other Dressing HYDROGEL -Primary Dressing Covered/Secured with Dry Gauze Dry Gauze Right -Multi-Layered Wrap Application Unna Boot - Unna Boot - Right ($) Right ($) Treatment Response Procedure Tolerated Well Vital Signs Temperature (97.8 F-99.1 F) 97.4 F L Temperature Source Temporal Pulse Rate (60-100) 69 Pulse Location Monitor Respiratory Rate (12-18) 18 Blood Pressure (90/60-120/80) 132/58 H Blood Pressure Mean (mm Hg) 82 Source Monitor Position Semi-Fowlers Blood Pressure Location Left Arm Pain Scale: 0-10 Numeric Is Patient Pain Free? Yes Yes Yes Teaching: Wound Center Compression Wraps & Stockings -Person Taught Patient -Teaching Method Discussion, Demonstration -Response to teaching Verbalize understanding Dressing Your Wound -Person Taught Patient -Teaching Method Discussion, Demonstration -Response to teaching Verbalize understanding WC - Visit Discharge Discharge Condition Stable Stable Ambulatory Status Ambulatory Ambulatory, Walker Transportation Private Auto Medication Reconcilliation completed & No No provided to patient/care provider Clinical Summary of Care Provided Yes Yes 06/24/23 10:19 Wound Care Center Nurse 3 4. R ankle lateral -Ulcer Cleansing -Primary Dressing Applied -Other Dressing -Primary Dressing Covered/Secured with Dry Gauze & Roll Gauze, Secured with Tape Right -Multi-Layered Wrap Application Unna Boot - Right ($) Treatment Response Vital Signs Temperature (97.8 F-99.1 F) Temperature Source Pulse Rate (60-100) Pulse Location Respiratory Rate (12-18) Blood Pressure (90/60-120/80) Blood Pressure Mean (mm Hg) Source Position Blood Pressure Location Pain Scale: 0-10 Numeric Is Patient Pain Free? Yes Teaching: Wound Center Compression Wraps & Stockings -Person Taught -Teaching Method -Response to teaching Dressing Your Wound -Person Taught -Teaching Method -Response to teaching WC - Visit Discharge Discharge Condition Stable Ambulatory Status Ambulatory, Walker Transportation Private Auto Medication Reconcilliation completed & No provided to patient/care provider Clinical Summary of Care Provided Yes Assessment/Plan Assessment/Plan (1) Other specified peripheral vascular diseases: CODE(S): I73.89 - Other specified peripheral vascular diseases PLAN: Exam performed Previous radiographs reviewed, no concern for osteomyelitis. New arterial and venous studies ordered today. Wound likely related to venous insufficiency. Recommend compression elevation and exercise for edema management. Right lateral ankle wound was debrided excisionally down to including level of subcutaneous tissue of all nonviable tissue with pickups and #15 blade without incident. Hemostasis obtained with light compression. Patient tolerated procedure well. Topical anesthesia used. Pre and postdebridement measurements documented nursing notes. Plan for twice weekly application of hydrogel Adaptic and Unna boot Follow-up in 1 week Consider additional lab work to rule out anemia or immune compromise if there are any delays in healing. (2) Non-pressure chronic ulcer of right ankle with fat layer exposed: CODE(S): L97.312 - Non-pressure chronic ulcer of right ankle with fat layer exposed
[2023-06-27 12:50] VITALS: BP 114/61; PULSE 75; RESP 18; TEMP 35.6
--- NOTE | 2023-06-30 09:43 | VDLE_ITS ---
Reason For Study: Edema, Ulcer RIGHT LEFT CFV is compressible, spontaneous, phasic, GSV is normal. competent and demonstrates normal CFV is compressible, spontaneous, phasic, augmentation. competent, and demonstrates normal FV is compressible, spontaneous, phasic, augmentation. competent and demonstrates normal FV is compressible, spontaneous, phasic, augmentation. competent and demonstrates normal POP V is compressible, spontaneous, phasic, augmentation. competent and demonstrates normal POP V is compressible, spontaneous, phasic, augmentation. competent and demonstrates normal T/P Trunk is compressible. augmentation. PTV is compressible. T/P Trunk is compressible. RT PerV is compressible. PTV is compressible. SFJ is competent and measures 0.45cm x 0.44 LT PerV is compressible. cm. SFJ is competent and measures 0.30cm x 0.30 GSV proximal thigh measures 0.34cm x 0.32 cm. cm. GSV at knee measures 0.32cmx 0.29 cm. GSV proximal thigh measures 0.36cm x 0.40 cm. GSV INCOMPETENT throughout for greater than Lt GSV is harvested from mid thigh to ankle. 0.5 seconds. SSV proximal calf is INCOMPETENT for greater ASV proximal thigh is INCOMPETENT for greater than 0.5 seconds and measures 0.29cm x 0.34 than 0.5 seconds and measures 0.35cm x 0.32 cm. cm. SSV proximal calf is INCOMPETENT for greater than 0.5 seconds and measures 0.29cm x 0.29 cm. Procedure This is a venous duplex using B-mode, color flow and spectral Doppler. Exam performed in department. A preliminary report was called and/or faxed to Dr. Dee. VL/Venous Duplex US - Joseluis Extrem Interpretation Summary Deep veins of the lower extremities are bilaterally patent and compressible seg mentally. There is no evidence of deep vein thrombosis on either side. Valvular competence appears in tact within the proximal deep venous systems bilaterally. The right great saphenous vein appear s patent and compressible segmentally. Sapheno-femoral junctions are bilaterally competent . The right great saphenous vein appears segmentally incompetent. The left great saphenous vein i s absent from the mid-thigh to left ankle. Small saphenous veins are patent and incompetent bilat erally. The accessory saphenous vein in the right proximal thigh is incompetent. Ordering Physician: Heriberto Dee Referring Physician: Susie Dang Performed By: Mague Vazquez RDCS, RVT
--- NOTE | 2023-06-30 09:43 | ART_ITS ---
Reason For Study: Ulcer Procedure A bilateral lower extremity continuous wave Doppler with analog waveform analysis,segmental pressures,and ankle brachial indexes without exercise. Left Segmental Pressures Left brachial= 120mmHg. Left posterior tibial artery = 163mmHg. Left dorsalis pedis artery = 206mmHg. Left digit = 94 mmHg. Right Segmental Pressures Right brachial= 124mmHg. Right posterior tibial artery = >254mmHg. Right dorsalis pedis artery = >254mmHg. Right digit = 61 mmHg. Indices The right ankle brachial index by the posterior tibial artery is NC. The right ankle brachial index by the dorsalis pedis is NC. The right digital-brachial index is 0.49. The left ankle brachial index by the posterior tibial artery is 1.31. The left ankle brachial index by the dorsalis pedis is 1.66. The left digital-brachial index is 0.76. VL/Lower Ext Art Exam w/o Exercis Interpretation Summary Biphasic Doppler waveforms are noted at ankle level on the right. Triphasic and biphasic Doppler waveforms are noted at ankle level on the left. Pulse-volume recordings appear satisfactory bilaterally. The resting right ankle-brachial index could not be determined due to the non- compressibility of the vasculature at ankle level on the right. The resting lef t ankle-brachial index is supra-normal. The right digital-brachial index is moderately diminishe d. The left digital- brachial index is normal. There is evidence of arterial calcification at ankle level bilaterally. 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 There is no e vidence of significant arterial occlusive disease in the left lower extremity. Ordering Physician: Heriberto Dee Referring Physician: Susie Dang Performed By: Mague Vazquez RDCS/RVT
--- NOTE | 2023-06-30 16:29 | WC ---
Patient's sister Anamika called concerned about her sister getting a skin graft. Asking for more information on this. Anamika is documented as person to contact so I explained to her what skin substitutes we use here and that we don't use allografts or her own skin for this which is what Anamika was thinking. She said she feels better about this on being educated on the products. Patient is scheduled to see Dr Dee tomorrow and we will review her vascular tests and the overall appearance of wound bed prior to any possible skin subs.
[2023-07-01 10:04] VITALS: BP 128/77; PULSE 65; RESP 18; TEMP 35.5
--- NOTE | 2023-07-01 11:26 | PN.PCM_ITS ---
History of Present Illness Date of Service: 07/01/23 Chief Complaint: Right lower extremity wound History of Wound: Patient is an 87-year-old female with history of atherosclerotic disease, peripheral vascular disease, Raynaud's, hyperlipidemia who presents for follow-up on a right lateral leg ulceration. Progress of Wound: Patient has right lateral ankle wound in setting of venous insufficiency. Objective Data Objective Data Vital Signs: Vital Signs Temp Pulse Resp BP 95.9 F L 65 18 128/77 H 07/01/23 10:04 07/01/23 10:04 07/01/23 10:04 07/01/23 10:04 Radiography Diagnostic Testing: Radiology Impression Extremity Arterial Study 06/30/23 09:43 Interpretation Summary Biphasic Doppler waveforms are noted at ankle level on the right. Triphasic and biphasic Doppler waveforms are noted at ankle level on the left. Pulse-volume recordings appear satisfactory bilaterally. The resting right ankle-brachial index could not be determined due to the non- compressibility of the vasculature at ankle level on the right. The resting left ankle-brachial index is supra-normal. The right digital-brachial index is moderately diminished. The left digital- brachial index is normal. There is evidence of arterial calcification at ankle level bilaterally. There is evidence of moderate arterial occlusive disease in the right lower extremity. There is no evidence of significant arterial occlusive disease in the left lower extremity. Ordering Physician: Heriberto Dee Referring Physician: Susie Dang Performed By: Mague Vazquez RDCS/RVT Venous Doppler Study 06/30/23 09:43 Interpretation Summary Deep veins of the lower extremities are bilaterally patent and compressible segmentally. There is no evidence of deep vein thrombosis on either side. Valvular competence appears intact within the proximal deep venous systems bilaterally. The right great saphenous vein appears patent and compressible segmentally. Sapheno-femoral junctions are bilaterally competent . The right great saphenous vein appears segmentally incompetent. The left great saphenous vein is absent from the mid-thigh to left ankle. Small saphenous veins are patent and incompetent bilaterally. The accessory saphenous vein in the right proximal thigh is incompetent. Ordering Physician: Heriberto Dee Referring Physician: Susie Dang Performed By: Mague Vazquez, JERED, RVT Physical Exam Narrative Vascular: Dorsalis pedis posterior tibial pulses diminished bilateral feet. +1 pitting edema to right lower extremity. Signs of hemosiderin deposits as well as varicosities noted bilaterally. Neurologic: Light touch protective sensation intact bilateral feet. Dermatologic: Predebridement there is a necrotic lateral malleoli are wound. Postdebridement the wound was down to subcutaneous tissue demonstrate clean granular bleeding base. Clean skin edges. No deep probing undermining or signs of infection at current. Pre and postdebridement measurements documented nursing notes. Musculoskeletal: No sign DVT. Muscular strength full. No wound forming deformity noted. Debridement Note Debridement Note Post-Debridement Measurements and Additional Note: Post-Debridement Measurements/Treatment - Nurse 1 - General Ulcer Assessment Start: 06/17/23 10:03 Freq: Status: Active Protocol: ARNOLDO Activity Type Activity Date Activity User E-sign Co-sign Detail Recorded Client Recorded Date Recorded By Document 06/17/23 10:03 RB Desktop 06/17/23 10:12 RB Document 06/20/23 12:13 KW Desktop 06/20/23 12:15 KW Document 06/24/23 09:57 RB Desktop 06/24/23 10:06 RB Document 06/27/23 12:50 RB [id number] 06/27/23 12:52 RB Document 07/01/23 10:04 RB Desktop 07/01/23 10:12 RB 06/17/23 06/20/23 06/24/23 10:03 12:13 09:57 - Today's Visit Information Type of service Initial Visit Nurse-only Follow-up Visit Visit (Physician/TIMBER HARVESTER OPERATOR ) Arrival Mode Ambulatory, Ambulatory, Ambulatory, Walker Wheelchair Walker Transfer Assistance None None Patient Identification Verified (Name & Yes Yes Yes ) Patient Requires Transmission-Based No No Precautions Vital Signs Temperature (97.8 F-99.1 F) 96.4 F L 97.4 F L 97 F L Temperature Source Temporal Temporal Temporal Pulse Rate (60-100) 66 69 65 Pulse Location Monitor Monitor Monitor Respiratory Rate (12-18) 18 18 18 Respiratory rate source Observation Observation Blood Pressure (90/60-120/80) 118/59 L 132/58 H 129/66 H Blood Pressure Mean (mm Hg) 78 82 87 Source Monitor Monitor Monitor Position Semi-Fowlers Semi-Fowlers Sitting Blood Pressure Location Left Arm Left Arm Right Arm History Since Last Visit- (Skip if this is Patient's initial visit) Have you changed medications since your No No last visit? Any new allergies or adverse reactions No No Had a fall/change in ADL's that may No No increase risk of falls Signs or symptoms of abuse and/or No No neglect since last visit Have you been in the hospital since your No No last visit? Has dressing in place as prescribed Yes Yes Has compression in place as prescribed No Yes Has offloadiing in place as prescribed No No Experienced any changes in pain level or No No management Left Footwear Regular Shoe Regular Shoe Regular Shoe Right Footwear Regular Shoe Regular Shoe Regular Shoe Pain Scale: 0-10 Numeric Is Patient Pain Free? No Yes Yes R ankle -Description Aching -Intensity 5 -Duration (hours) Acute -Pain Behavior Withdrawal from Touch -Pain Aggravating Factors ADL's -Alleviating Factors/Interventions Medication -Effectiveness of Alleviating Factor/ Minimally Intervention effective Lower Extremity Assessment/ Foot Assessment/ Toe Nail Assessment Right -Posterior Tibial Palpable No -Dorsalis Pedis Palpable No -Extremity Color Hyperpigmented -Hair Growth on Legs Yes -Hair Growth on Toes No -Temperature of Extremity Cool -Capillary Refill Less than 3 Seconds -Dependent Rubor No -Blanched when Elevated No -Lipodermatosclerosis No -Other Deformity No -Prior Foot Ulcer No -Charcot Joint No -Prior Amputation No -Thick Yes -Discolored Yes -Deformed No -Improper Length & Hygeine Yes Left -Posterior Tibial Palpable No -Dorsalis Pedis Palpable No -Extremity Color Pale, Hemosiderin -Hair Growth on Legs Yes -Hair Growth on Toes No -Temperature of Extremity Cool -Capillary Refill Less than 3 Seconds -Dependent Rubor No -Blanched when Elevated No -Lipodermatosclerosis No -Other Deformity No -Prior Foot Ulcer No -Charcot Joint No -Prior Amputation No -Thick Yes -Discolored Yes -Deformed No -Improper Length & Hygeine Yes Neuropathy Assessment Feet - Top Side and Bottom <Entered> (a) Communication Assessment Preferred language Maori Tool Distributor Required No Able to Read Yes Able to Write Yes Communication Tools None Caregiver Communication Skills No Impairment Impairment Right Hearing Abillity Hard of Hearing ,Use of Hearing Aid Left Hearing Abillity Hard of Hearing ,Use of Hearing Aid Visual Assistive Devices Glasses Teaching Assessment Preferences Verbal, Demonstration Readiness To Learn Good Willingness to Engage in Self Management Med Activies Readiness to Engage in Self Management Med Activities Anxiety Level Calm Cooperation Cooperative Perception Coherent Interest in Health Problem Asks Questions Education Importance Acknowledges Need Does Patient Smoke tobacco or other No substances Smoking Status Never smoker Functional Assessment Recent Decline in Ability to Perform Denies Any Declines Assistive Device With Patient No Culture/Advent/Bundle Shaker Cultural/Advent Needs that may affect No Treatment Plan Would you allow our hospital pony roll finisher to No meet you for the purpose of spiritual/ emotional support? Bundle Shaker to contact place of church No Teaching: Wound Center [facility] Orientation/ Contacting Physician -Person Taught Patient -Teaching Method Discussion -Response to teaching Verbalize understanding 06/27/23 07/01/23 12:50 10:04 [facility] Today's Visit Information Type of service Nurse-only Follow-up Visit Visit (Physician/TIMBER HARVESTER OPERATOR ) Arrival Mode Ambulatory, Ambulatory, Walker Walker Transfer Assistance None None Patient Identification Verified (Name & Yes Yes ) Patient Requires Transmission-Based No No Precautions Vital Signs Temperature (97.8 F-99.1 F) 96.1 F L 95.9 F L Temperature Source Temporal Temporal Pulse Rate (60-100) 75 65 Pulse Location Monitor Monitor Respiratory Rate (12-18) 18 18 Respiratory rate source Observation Observation Blood Pressure (90/60-120/80) 114/61 128/77 H Blood Pressure Mean (mm Hg) 78 94 Source Monitor Monitor Position Semi-Fowlers Semi-Fowlers Blood Pressure Location Left Arm Right Arm History Since Last Visit- (Skip if this is Patient's initial visit) Have you changed medications since your No No last visit? Any new allergies or adverse reactions No No Had a fall/change in ADL's that may No No increase risk of falls Signs or symptoms of abuse and/or No No neglect since last visit Have you been in the hospital since your No No last visit? Has dressing in place as prescribed Yes Yes Has compression in place as prescribed Yes No Has offloadiing in place as prescribed No No Experienced any changes in pain level or No No management Left Footwear Right Footwear Pain Scale: 0-10 Numeric Is Patient Pain Free? Yes No R ankle -Description Aching -Intensity 5 -Duration (hours) Acute -Pain Behavior Withdrawal from Touch -Pain Aggravating Factors Exercise/ Activity -Alleviating Factors/Interventions Medication -Effectiveness of Alleviating Factor/ Moderately Intervention effective Lower Extremity Assessment/ Foot Assessment/ Toe Nail Assessment Right -Posterior Tibial Palpable -Dorsalis Pedis Palpable -Extremity Color -Hair Growth on Legs -Hair Growth on Toes -Temperature of Extremity -Capillary Refill -Dependent Rubor -Blanched when Elevated -Lipodermatosclerosis -Other Deformity -Prior Foot Ulcer -Charcot Joint -Prior Amputation -Thick -Discolored -Deformed -Improper Length & Hygeine Left -Posterior Tibial Palpable -Dorsalis Pedis Palpable -Extremity Color -Hair Growth on Legs -Hair Growth on Toes -Temperature of Extremity -Capillary Refill -Dependent Rubor -Blanched when Elevated -Lipodermatosclerosis -Other Deformity -Prior Foot Ulcer -Charcot Joint -Prior Amputation -Thick -Discolored -Deformed -Improper Length & Hygeine Neuropathy Assessment Feet - Top Side and Bottom Communication Assessment Preferred financial reporting specialist Required Able to Read Able to Write Communication Tools Caregiver Communication Skills Impairment Right Hearing Abillity Left Hearing Abillity Visual Assistive Devices Teaching Assessment Preferences Readiness To Learn Willingness to Engage in Self Management Activies Readiness to Engage in Self Management Activities Anxiety Level Cooperation Perception Interest in Health Problem Education Importance Does Patient Smoke tobacco or other substances Smoking Status Functional Assessment Recent Decline in Ability to Perform Assistive Device With Patient Culture/Advent/Bundle Shaker Cultural/Advent Needs that may affect Treatment Plan Would you allow our hospital pony roll finisher to meet you for the purpose of spiritual/ emotional support? Bundle Shaker to contact place of church Teaching: Wound Center [facility] Orientation/ Contacting Physician -Person Taught -Teaching Method -Response to teaching (a) 1 - + throughout WC - Nurse 1 - General Ulcer Measurement Start: 06/17/23 10:03 Freq: Status: Active Protocol: Activity Type Activity Date Activity User E-sign Co-sign Detail Recorded Client Recorded Date Recorded By Document 06/17/23 10:03 RB Desktop 06/17/23 10:12 RB Document 06/20/23 12:13 KW Desktop 06/20/23 12:15 KW Document 06/24/23 09:57 RB Desktop 06/24/23 10:06 RB Document 06/27/23 12:50 RB [id number] 06/27/23 12:52 RB Document 07/01/23 10:04 RB Desktop 07/01/23 10:12 RB 06/17/23 06/20/23 06/24/23 10:03 12:13 09:57 Wound Center Nurse 1 4. R ankle lateral -Combined with other wound No No -Current Size (cm) - Length 1.1 1.4 -Current Size (cm) - Width 0.6 0.9 -Current Size (cm) - Depth 0.2 0.4 -Total Square Cm 0.66 1.26 -Photo Taken Yes -Tunneling No No -Undermining/Tunneling No No -Circular Undermining No No -Exudate Amt Medium Medium -Exudate Type Serosanguineous Serosanguineous -Wound Margin Thickened & Thickened & Rolled Under Rolled Under -Granulation Amt Small (1-33%) Medium (34-66%) -Granulation Quality [place] -Slough/Fibrin Yes Yes -Necrosis Amt Large (67-100%) Large (67-100%) -Necrotic Tissue Type Adherent Slough Adherent Slough -Structure Exposed N/A N/A -Texture (Chitra-wound Skin Appearance) Assessed, Assessed Scarring -Moisture (Chitra-wound Skin Appearance) Assessed Assessed -Color (Chitra-wound Skin Appearance) Assessed Erythema -Temperature (Chitra-wound Skin No Abnormality No Abnormality Appearance) (Pt Warm) (Pt Warm) -Tenderness on Palpation (Chitra-wound No No Skin Appearance) -Ulcer Cleansing Wound Cleanser Wound Cleanser -Foul Odor after Cleansing No No -Anesthetic Used 5% Lidocaine 5% Lidocaine Gel Gel -Wound Comment(s) Lower Limb Edema Present Yes Yes Right Calf (cm) 31.5 33 30 Right Ankle (cm) 22.2 21 20.5 Left Calf (cm) 31.7 Left Ankle (cm) 22.6 06/27/23 07/01/23 12:50 10:04 Wound Center Nurse 1 4. R ankle lateral -Combined with other wound No No -Current Size (cm) - Length 1.4 -Current Size (cm) - Width 1 -Current Size (cm) - Depth 0.2 -Total Square Cm 1.4 -Photo Taken -Tunneling No -Undermining/Tunneling No -Circular Undermining No -Exudate Amt Medium Medium -Exudate Type Yellow/Green Serosanguineous -Wound Margin Distinct, Thickened & Outline Rolled Under Attached -Granulation Amt Medium (34-66%) Medium (34-66%) -Granulation Quality [place] -Slough/Fibrin Yes Yes -Necrosis Amt Medium (34-66%) Medium (34-66%) -Necrotic Tissue Type Adherent Slough Adherent Slough -Structure Exposed N/A N/A -Texture (Chitra-wound Skin Appearance) Assessed Assessed -Moisture (Chitra-wound Skin Appearance) Assessed Assessed -Color (Chitra-wound Skin Appearance) Assessed Hemosiderin Staining -Temperature (Chitra-wound Skin No Abnormality No Abnormality Appearance) (Pt Warm) (Pt Warm) -Tenderness on Palpation (Chitra-wound No No Skin Appearance) -Ulcer Cleansing Wound Cleanser Wound Cleanser -Foul Odor after Cleansing No No -Anesthetic Used 5% Lidocaine Gel -Wound Comment(s) pt states unna boot fell down on her right loqwer leg and was wadded up by ankle on friday. so I cut it off. Lower Limb Edema Present Yes Yes Right Calf (cm) 30.8 31 Right Ankle (cm) 21 23 Left Calf (cm) Left Ankle (cm) WC - Nurse 2 - General Ulcer CM Notes Start: 06/17/23 10:03 Freq: Status: Active Protocol: Activity Type Activity Date Activity User E-sign Co-sign Detail Recorded Client Recorded Date Recorded By Document 06/17/23 10:33 Laptop 06/17/23 10:34 Document 06/24/23 10:12 Laptop 06/24/23 10:15 Document 07/01/23 10:33 Laptop 03/19/24 10:38 JF 06/17/23 06/24/23 07/01/23 10:33 10:12 10:33 Wound Center Nurse 2 4. R ankle lateral -Time 10:33 10:12 10:35 -Correct Patient Yes Yes Yes -Correct Side, Site, Position Yes Yes Yes -Correct Procedure Yes Yes Yes -Procedure Performed Yes Yes Yes -Type of Procedure Debridement Debridement Debridement -Clinical Debridement Subcutaneous Subcutaneous Subcutaneous -Tissue Removed Subcutaneous Subcutaneous Subcutaneous -Post Debridement (cm) - Length 1.2 1.5 1.4 -Post Debridement (cm) - Width 1.1 1.0 1.0 -Post Debridement (cm) - Depth 0.4 0.2 0.2 -Total Square (Post) (cm) 1.32 1.50 1.40 -Area of Debridement (cm) - Length 1.2 1.5 1.4 -Area of Debridement (cm) - Width 1.1 1.0 1.0 -Total Square (Area) (cm) 1.32 1.50 1.40 -Tunneling No No No -Undermining/Tunneling No No No -Circular Undermining No No No -Wound/Ulcer Outcome Not Healed Not Healed Not Healed -Ulcer Cleansing Rinsed/ Rinsed/ Rinsed/ Irrigated with Irrigated with Irrigated with Saline Saline Saline -Foul Odor after Cleansing No No No -Bioengineered Tissue No No Yes -Type of Bioengineered Tissue Epifix 18mm Disc -Expiration Date 02/13/28 -Product Lot Number [id number] -Percent Used 100 -Lot number of Saline Used [id number] -Bleeding Controlled with Pressure Pressure Pressure -Treatment Response Procedure Procedure Procedure Tolerated Well Tolerated Well Tolerated Well -Offloading No No No -Debridement - Subq, 1st 20sq cm Yes Yes No -Apply Skin Sub - 1st 25 sq cm - Legs 1 -Epifix 18mm Disc 3 Pain Scale: 0-10 Numeric Is Patient Pain Free? Yes Yes Yes WC - Nurse 3 - General Ulcer D/C NN Start: 06/17/23 10:03 Freq: Status: Active Protocol: Activity Type Activity Date Activity User E-sign Co-sign Detail Recorded Client Recorded Date Recorded By Document 06/17/23 12:12 RB [id number] 06/17/23 12:14 RB Document 06/20/23 12:13 KW Desktop 06/20/23 12:15 KW Document 06/20/23 12:16 KW Desktop 06/20/23 12:16 KW Document 06/24/23 10:19 KW Desktop 06/24/23 10:20 KW Document 06/27/23 12:50 RB [id number] 06/27/23 12:52 RB Document 07/01/23 10:38 JF Laptop 07/01/23 10:39 JF 06/17/23 06/20/23 06/20/23 12:12 12:13 12:16 Wound Care Center Nurse 3 4. R ankle lateral -Ulcer Cleansing Rinsed/ Soap and Water Irrigated with Saline -Primary Dressing Applied NonAdherent NonAdherent Contact Layer Contact Layer -Other Dressing HYDROGEL -Primary Dressing Covered/Secured with Dry Gauze Dry Gauze Right -Multi-Layered Wrap Application Unna Boot - Unna Boot - Right ($) Right ($) -Tubular Bandage -Size of Tubigrip Used -Size E ($) Treatment Response Procedure Tolerated Well Vital Signs Temperature (97.8 F-99.1 F) 97.4 F L Temperature Source Temporal Pulse Rate (60-100) 69 Pulse Location Monitor Respiratory Rate (12-18) 18 Respiratory rate source Blood Pressure (90/60-120/80) 132/58 H Blood Pressure Mean (mm Hg) 82 Source Monitor Position Semi-Fowlers Blood Pressure Location Left Arm Pain Scale: 0-10 Numeric Is Patient Pain Free? Yes Yes Yes Teaching: Wound Center Compression Wraps & Stockings -Person Taught Patient -Teaching Method Discussion, Demonstration -Response to teaching Verbalize understanding Dressing Your Wound -Person Taught Patient -Teaching Method Discussion, Demonstration -Response to teaching Verbalize understanding WC - Visit Discharge Discharge Condition Stable Stable Ambulatory Status Ambulatory Ambulatory, Walker Transportation Private Auto Medication Reconcilliation completed & No No provided to patient/care provider Clinical Summary of Care Provided Yes Yes 06/24/23 06/27/23 07/01/23 10:19 12:50 10:38 Wound Care Center Nurse 3 4. R ankle lateral -Ulcer Cleansing Wound Cleanser Rinsed/ Irrigated with Saline -Primary Dressing Applied NonAdherent Contact Layer -Other Dressing hydrogel sample silicone foam -Primary Dressing Covered/Secured with Dry Gauze & Dry Gauze Dry Gauze Roll Gauze, Secured with Tape Right -Multi-Layered Wrap Application Unna Boot - Unna Boot - Right ($) Right ($) -Tubular Bandage Single Layer -Size of Tubigrip Used Size E -Size E ($) 1 Treatment Response Procedure Tolerated Well Vital Signs Temperature (97.8 F-99.1 F) 96.1 F L Temperature Source Temporal Pulse Rate (60-100) 75 Pulse Location Monitor Respiratory Rate (12-18) 18 Respiratory rate source Observation Blood Pressure (90/60-120/80) 114/61 Blood Pressure Mean (mm Hg) 78 Source Monitor Position Semi-Fowlers Blood Pressure Location Left Arm Pain Scale: 0-10 Numeric Is Patient Pain Free? Yes Yes Yes Teaching: Wound Center Compression Wraps & Stockings -Person Taught -Teaching Method -Response to teaching Dressing Your Wound -Person Taught -Teaching Method -Response to teaching WC - Visit Discharge Discharge Condition Stable Stable Stable Ambulatory Status Ambulatory, Ambulatory Ambulatory, Walker Walker Transportation Private Auto Private Auto Private Auto Medication Reconcilliation completed & No No Yes provided to patient/care provider Clinical Summary of Care Provided Yes Yes Yes Assessment/Plan Assessment/Plan (1) Other specified peripheral vascular diseases: CODE(S): I73.89 - Other specified peripheral vascular diseases PLAN: Exam performed Previous radiographs reviewed, no concern for osteomyelitis. Arterial studies demonstrate diminished flow in right lower extremity. Vascular referral placed. Wound likely related to venous insufficiency. Recommend compression elevation and exercise for edema management. Right lateral ankle wound was debrided excisionally down to including level of subcutaneous tissue of all nonviable tissue with pickups and #15 blade without incident. Hemostasis obtained with light compression. Patient tolerated procedure well. Topical anesthesia used. Pre and postdebridement measurements documented nursing notes. Today wound was dressed with EpiFix graft. 2 x 2 centimeter graft. Entire graft used. No waste. Graft was secured with overlying wound veil and Steri- Strips. Site was dressed with dry sterile dressing and double Tubigrip. Consider additional lab work to rule out anemia or immune compromise if there are any delays in healing. Follow-up in 1 week. (2) Non-pressure chronic ulcer of right ankle with fat layer exposed: CODE(S): L97.312 - Non-pressure chronic ulcer of right ankle with fat layer exposed
[2023-07-08 10:50] VITALS: BP 122/63; PULSE 67; RESP 18; TEMP 36.2
--- NOTE | 2023-07-08 11:23 | PN.PCM_ITS ---
History of Present Illness Date of Service: 07/08/23 Chief Complaint: Right lower extremity wound History of Wound: Patient is an 87-year-old female with history of atherosclerotic disease, peripheral vascular disease, Raynaud's, hyperlipidemia who presents for follow-up on a right lateral leg ulceration. Progress of Wound: Patient has right lateral ankle wound in setting of venous insufficiency. Objective Data Objective Data Vital Signs: Vital Signs Temp Pulse Resp BP O2 Del Method 97.1 F L 67 18 122/63 H Room Air 07/08/23 10:50 07/08/23 10:50 07/08/23 10:50 07/08/23 10:50 07/08/23 10:50 Oxygen Delivery Method Room Air Physical Exam Narrative Vascular: Dorsalis pedis posterior tibial pulses diminished bilateral feet. +1 pitting edema to right lower extremity. Signs of hemosiderin deposits as well as varicosities noted bilaterally. Neurologic: Light touch protective sensation intact bilateral feet. Dermatologic: Full-thickness wound to the lateral malleolus of the right ankle. Fibrogranular base noted postdebridement. No acute signs of infection. No deep probing or undermining. Musculoskeletal: No sign DVT. Muscular strength full. No wound forming deformity noted. Debridement Note Debridement Note Post-Debridement Measurements and Additional Note: Post-Debridement Measurements/Treatment - Nurse 1 - General Ulcer Assessment Start: 06/17/23 10:03 Freq: Status: Active Protocol: JO.[email or web address] Activity Type Activity Date Activity User E-sign Co-sign Detail Recorded Client Recorded Date Recorded By Document 06/17/23 10:03 RB Desktop 06/17/23 10:12 RB Document 06/20/23 12:13 KW Desktop 06/20/23 12:15 KW Document 06/24/23 09:57 RB Desktop 06/24/23 10:06 RB Document 06/27/23 12:50 RB [id number] 06/27/23 12:52 RB Document 07/01/23 10:04 RB Desktop 07/01/23 10:12 RB Document 07/08/23 10:50 GM Desktop 07/08/23 10:57 GM 06/17/23 06/20/23 06/24/23 10:03 12:13 09:57 - Today's Visit Information Type of service Initial Visit Nurse-only Follow-up Visit Visit (Physician/GAGE DESIGNER ) Arrival Mode Ambulatory, Ambulatory, Ambulatory, Walker Wheelchair Walker Transfer Assistance None None Patient Identification Verified (Name & Yes Yes Yes ) Patient Requires Transmission-Based No No Precautions Vital Signs Temperature (97.8 F-99.1 F) 96.4 F L 97.4 F L 97 F L Temperature Source Temporal Temporal Temporal Pulse Rate (60-100) 66 69 65 Pulse Location Monitor Monitor Monitor Respiratory Rate (12-18) 18 18 18 Respiratory rate source Observation Observation Oxygen Delivery Method Blood Pressure (90/60-120/80) 118/59 L 132/58 H 129/66 H Blood Pressure Mean (mm Hg) 78 82 87 Source Monitor Monitor Monitor Position Semi-Fowlers Semi-Fowlers Sitting Blood Pressure Location Left Arm Left Arm Right Arm History Since Last Visit- (Skip if this is Patient's initial visit) Have you changed medications since your No No last visit? Any new allergies or adverse reactions No No Had a fall/change in ADL's that may No No increase risk of falls Signs or symptoms of abuse and/or No No neglect since last visit Have you been in the hospital since your No No last visit? Has dressing in place as prescribed Yes Yes Has compression in place as prescribed No Yes Has offloadiing in place as prescribed No No Experienced any changes in pain level or No No management Left Footwear Regular Shoe Regular Shoe Regular Shoe Right Footwear Regular Shoe Regular Shoe Regular Shoe Pain Scale: 0-10 Numeric Is Patient Pain Free? No Yes Yes R ankle -Description Aching -Intensity 5 -Duration (hours) Acute -Pain Behavior Withdrawal from Touch -Pain Aggravating Factors ADL's -Alleviating Factors/Interventions Medication -Effectiveness of Alleviating Factor/ Minimally Intervention effective Lower Extremity Assessment/ Foot Assessment/ Toe Nail Assessment Right -Posterior Tibial Palpable No -Dorsalis Pedis Palpable No -Extremity Color Hyperpigmented -Hair Growth on Legs Yes -Hair Growth on Toes No -Temperature of Extremity Cool -Capillary Refill Less than 3 Seconds -Dependent Rubor No -Blanched when Elevated No -Lipodermatosclerosis No -Other Deformity No -Prior Foot Ulcer No -Charcot Joint No -Prior Amputation No -Thick Yes -Discolored Yes -Deformed No -Improper Length & Hygeine Yes Left -Posterior Tibial Palpable No -Dorsalis Pedis Palpable No -Extremity Color Pale, Hemosiderin -Hair Growth on Legs Yes -Hair Growth on Toes No -Temperature of Extremity Cool -Capillary Refill Less than 3 Seconds -Dependent Rubor No -Blanched when Elevated No -Lipodermatosclerosis No -Other Deformity No -Prior Foot Ulcer No -Charcot Joint No -Prior Amputation No -Thick Yes -Discolored Yes -Deformed No -Improper Length & Hygeine Yes Neuropathy Assessment Feet - Top Side and Bottom <Entered> (a) Communication Assessment Preferred language Amharic Roofing Applicator Required No Able to Read Yes Able to Write Yes Communication Tools None Caregiver Communication Skills No Impairment Impairment Right Hearing Abillity Hard of Hearing ,Use of Hearing Aid Left Hearing Abillity Hard of Hearing ,Use of Hearing Aid Visual Assistive Devices Glasses Teaching Assessment Preferences Verbal, Demonstration Readiness To Learn Good Willingness to Engage in Self Management Med Activies Readiness to Engage in Self Management Med Activities Anxiety Level Calm Cooperation Cooperative Perception Coherent Interest in Health Problem Asks Questions Education Importance Acknowledges Need Does Patient Smoke tobacco or other No substances Smoking Status Never smoker Functional Assessment Recent Decline in Ability to Perform Denies Any Declines Assistive Device With Patient No Culture/Sikh/Industrial Sociologist Cultural/Sikh Needs that may affect No Treatment Plan Would you allow our hospital enterprise architect to No meet you for the purpose of spiritual/ emotional support? Industrial Sociologist to contact place of episcopal No Teaching: Wound Center [facility] Orientation/ Contacting Physician -Person Taught Patient -Teaching Method Discussion -Response to teaching Verbalize understanding 06/27/23 07/01/23 07/08/23 12:50 10:04 10:50 - Today's Visit Information Type of service Nurse-only Follow-up Visit Follow-up Visit Visit (Physician/GAGE DESIGNER (Physician/GAGE DESIGNER ) ) Arrival Mode Ambulatory, Ambulatory, Ambulatory, Walker Walker Walker Transfer Assistance None None None Patient Identification Verified (Name & Yes Yes Yes ) Patient Requires Transmission-Based No No Precautions Vital Signs Temperature (97.8 F-99.1 F) 96.1 F L 95.9 F L 97.1 F L Temperature Source Temporal Temporal Temporal Pulse Rate (60-100) 75 65 67 Pulse Location Monitor Monitor Monitor Respiratory Rate (12-18) 18 18 18 Respiratory rate source Observation Observation Observation Oxygen Delivery Method Room Air Blood Pressure (90/60-120/80) 114/61 128/77 H 122/63 H Blood Pressure Mean (mm Hg) 78 94 82 Source Monitor Monitor Monitor Position Semi-Fowlers Semi-Fowlers Sitting Blood Pressure Location Left Arm Right Arm Right Arm History Since Last Visit- (Skip if this is Patient's initial visit) Have you changed medications since your No No No last visit? Any new allergies or adverse reactions No No No Had a fall/change in ADL's that may No No No increase risk of falls Signs or symptoms of abuse and/or No No No neglect since last visit Have you been in the hospital since your No No No last visit? Has dressing in place as prescribed Yes Yes Yes Has compression in place as prescribed Yes No Yes Has offloadiing in place as prescribed No No N/A Experienced any changes in pain level or No No No management Left Footwear Regular Shoe Right Footwear Regular Shoe Pain Scale: 0-10 Numeric Is Patient Pain Free? Yes No Yes R ankle -Description Aching -Intensity 5 -Duration (hours) Acute -Pain Behavior Withdrawal from Touch -Pain Aggravating Factors Exercise/ Activity -Alleviating Factors/Interventions Medication -Effectiveness of Alleviating Factor/ Moderately Intervention effective Lower Extremity Assessment/ Foot Assessment/ Toe Nail Assessment Right -Posterior Tibial Palpable -Dorsalis Pedis Palpable -Extremity Color -Hair Growth on Legs -Hair Growth on Toes -Temperature of Extremity -Capillary Refill -Dependent Rubor -Blanched when Elevated -Lipodermatosclerosis -Other Deformity -Prior Foot Ulcer -Charcot Joint -Prior Amputation -Thick -Discolored -Deformed -Improper Length & Hygeine Left -Posterior Tibial Palpable -Dorsalis Pedis Palpable -Extremity Color -Hair Growth on Legs -Hair Growth on Toes -Temperature of Extremity -Capillary Refill -Dependent Rubor -Blanched when Elevated -Lipodermatosclerosis -Other Deformity -Prior Foot Ulcer -Charcot Joint -Prior Amputation -Thick -Discolored -Deformed -Improper Length & Hygeine Neuropathy Assessment Feet - Top Side and Bottom Communication Assessment Preferred language and literature division chair Required Able to Read Able to Write Communication Tools Caregiver Communication Skills Impairment Right Hearing Abillity Left Hearing Abillity Visual Assistive Devices Teaching Assessment Preferences Readiness To Learn Willingness to Engage in Self Management Activies Readiness to Engage in Self Management Activities Anxiety Level Cooperation Perception Interest in Health Problem Education Importance Does Patient Smoke tobacco or other substances Smoking Status Functional Assessment Recent Decline in Ability to Perform Assistive Device With Patient Culture/Sikh/Industrial Sociologist Cultural/Sikh Needs that may affect Treatment Plan Would you allow our hospital enterprise architect to meet you for the purpose of spiritual/ emotional support? Industrial Sociologist to contact place of episcopal Teaching: Wound Center [facility] Orientation/ Contacting Physician -Person Taught -Teaching Method -Response to teaching (a) 1 - + throughout - Nurse 1 - General Ulcer Measurement Start: 06/17/23 10:03 Freq: Status: Active Protocol: Activity Type Activity Date Activity User E-sign Co-sign Detail Recorded Client Recorded Date Recorded By Document 06/17/23 10:03 RB Desktop 06/17/23 10:12 RB Document 06/20/23 12:13 KW Desktop 06/20/23 12:15 KW Document 06/24/23 09:57 RB Desktop 06/24/23 10:06 RB Document 06/27/23 12:50 RB [id number] 06/27/23 12:52 RB Document 07/01/23 10:04 RB Desktop 07/01/23 10:12 RB Document 07/08/23 10:50 GM Desktop 07/08/23 10:57 GM 06/17/23 06/20/23 06/24/23 10:03 12:13 09:57 Wound Center Nurse 1 4. R ankle lateral -Combined with other wound No No -Current Size (cm) - Length 1.1 1.4 -Current Size (cm) - Width 0.6 0.9 -Current Size (cm) - Depth 0.2 0.4 -Total Square Cm 0.66 1.26 -Photo Taken Yes -Epithelialization -Tunneling No No -Undermining/Tunneling No No -Circular Undermining No No -Exudate Amt Medium Medium -Exudate Type Serosanguineous Serosanguineous -Wound Margin Thickened & Thickened & Rolled Under Rolled Under -Granulation Amt Small (1-33%) Medium (34-66%) -Granulation Quality [place] -Slough/Fibrin Yes Yes -Necrosis Amt Large (67-100%) Large (67-100%) -Necrotic Tissue Type Adherent Slough Adherent Slough -Structure Exposed N/A N/A -Texture (Chitra-wound Skin Appearance) Assessed, Assessed Scarring -Moisture (Chitra-wound Skin Appearance) Assessed Assessed -Color (Chitra-wound Skin Appearance) Assessed Erythema -Temperature (Chitra-wound Skin No Abnormality No Abnormality Appearance) (Pt Warm) (Pt Warm) -Tenderness on Palpation (Chitra-wound No No Skin Appearance) -Ulcer Cleansing Wound Cleanser Wound Cleanser -Foul Odor after Cleansing No No -Anesthetic Used 5% Lidocaine 5% Lidocaine Gel Gel -Wound Comment(s) Lower Limb Edema Present Yes Yes Right Calf (cm) 31.5 33 30 Right Ankle (cm) 22.2 21 20.5 Left Calf (cm) 31.7 Left Ankle (cm) 22.6 06/27/23 07/01/23 07/08/23 12:50 10:04 10:50 Wound Center Nurse 1 4. R ankle lateral -Combined with other wound No No -Current Size (cm) - Length 1.4 1.5 -Current Size (cm) - Width 1 1.0 -Current Size (cm) - Depth 0.2 0.2 -Total Square Cm 1.4 1.50 -Photo Taken No -Epithelialization Small 1-33% -Tunneling No No -Undermining/Tunneling No No -Circular Undermining No No -Exudate Amt Medium Medium Medium -Exudate Type Yellow/Green Serosanguineous Serosanguineous -Wound Margin Distinct, Thickened & Distinct, Outline Rolled Under Outline Attached Attached -Granulation Amt Medium (34-66%) Medium (34-66%) Medium (34-66%) -Granulation Quality [place] -Slough/Fibrin Yes Yes Yes -Necrosis Amt Medium (34-66%) Medium (34-66%) -Necrotic Tissue Type Adherent Slough Adherent Slough Adherent Slough -Structure Exposed N/A N/A N/A -Texture (Chitra-wound Skin Appearance) Assessed Assessed Assessed, Scarring -Moisture (Chitra-wound Skin Appearance) Assessed Assessed Assessed -Color (Chitra-wound Skin Appearance) Assessed Hemosiderin Assessed Staining -Temperature (Chitra-wound Skin No Abnormality No Abnormality No Abnormality Appearance) (Pt Warm) (Pt Warm) (Pt Warm) -Tenderness on Palpation (Chitra-wound No No Yes Skin Appearance) -Ulcer Cleansing Wound Cleanser Wound Cleanser Soap and Water -Foul Odor after Cleansing No No No -Anesthetic Used 5% Lidocaine 5% Lidocaine Gel Gel -Wound Comment(s) pt states unna boot fell down on her right loqwer leg and was wadded up by ankle on saturday. so I cut it off. Lower Limb Edema Present Yes Yes No Right Calf (cm) 30.8 31 32.5 Right Ankle (cm) 21 23 22.5 Left Calf (cm) Left Ankle (cm) WC - Nurse 2 - General Ulcer CM Notes Start: 06/17/23 10:03 Freq: Status: Active Protocol: Activity Type Activity Date Activity User E-sign Co-sign Detail Recorded Client Recorded Date Recorded By Document 06/17/23 10:33 Laptop 06/17/23 10:34 Document 06/24/23 10:12 [employer] Laptop 06/24/23 10:15 JF Document 07/01/23 10:33 JF Laptop 07/01/23 10:38 JF Document 07/08/23 11:07 MW Desktop 07/08/23 11:14 MW 06/17/23 06/24/23 07/01/23 10:33 10:12 10:33 Wound Center Nurse 2 4. R ankle lateral -Time 10:33 10:12 10:35 -Correct Patient Yes Yes Yes -Correct Side, Site, Position Yes Yes Yes -Correct Procedure Yes Yes Yes -Procedure Performed Yes Yes Yes -Type of Procedure Debridement Debridement Debridement -Clinical Debridement Subcutaneous Subcutaneous Subcutaneous -Tissue Removed Subcutaneous Subcutaneous Subcutaneous -Post Debridement (cm) - Length 1.2 1.5 1.4 -Post Debridement (cm) - Width 1.1 1.0 1.0 -Post Debridement (cm) - Depth 0.4 0.2 0.2 -Total Square (Post) (cm) 1.32 1.50 1.40 -Area of Debridement (cm) - Length 1.2 1.5 1.4 -Area of Debridement (cm) - Width 1.1 1.0 1.0 -Total Square (Area) (cm) 1.32 1.50 1.40 -Tunneling No No No -Undermining/Tunneling No No No -Circular Undermining No No No -Wound/Ulcer Outcome Not Healed Not Healed Not Healed -Ulcer Cleansing Rinsed/ Rinsed/ Rinsed/ Irrigated with Irrigated with Irrigated with Saline Saline Saline -Foul Odor after Cleansing No No No -Bioengineered Tissue No No Yes -Type of Bioengineered Tissue Epifix 18mm Disc -Expiration Date 02/13/28 -Product Lot Number [id number] -Percent Used 100 -Lot number of Saline Used [id number] -Bleeding Controlled with Pressure Pressure Pressure -Treatment Response Procedure Procedure Procedure Tolerated Well Tolerated Well Tolerated Well -Offloading No No No -Debridement - Subq, 1st 20sq cm Yes Yes No -Apply Skin Sub - 1st 25 sq cm - Legs 1 -Epifix 18mm Disc 3 Pain Scale: 0-10 Numeric Is Patient Pain Free? Yes Yes Yes 07/08/23 11:07 Wound Center Nurse 2 4. R ankle lateral -Time 11:12 -Correct Patient Yes -Correct Side, Site, Position Yes -Correct Procedure Yes -Procedure Performed Yes -Type of Procedure Debridement -Clinical Debridement Subcutaneous -Tissue Removed Subcutaneous -Post Debridement (cm) - Length 1.7 -Post Debridement (cm) - Width 1.0 -Post Debridement (cm) - Depth 0.2 -Total Square (Post) (cm) 1.70 -Area of Debridement (cm) - Length 1.7 -Area of Debridement (cm) - Width 1.0 -Total Square (Area) (cm) 1.70 -Tunneling No -Undermining/Tunneling No -Circular Undermining No -Wound/Ulcer Outcome Not Healed -Ulcer Cleansing Rinsed/ Irrigated with Saline -Foul Odor after Cleansing No -Bioengineered Tissue Yes -Type of Bioengineered Tissue Epifix 18mm Disc -Expiration Date 02/13/28 -Product Lot Number [id number] -Percent Used 100 -Lot number of Saline Used [id number] -Bleeding Controlled with -Treatment Response -Offloading -Debridement - Subq, 1st 20sq cm No -Apply Skin Sub - 1st 25 sq cm - Legs 1 -Epifix 18mm Disc 3 Pain Scale: 0-10 Numeric Is Patient Pain Free? Yes - Nurse 3 - General Ulcer D/C NN Start: 06/17/23 10:03 Freq: Status: Active Protocol: Activity Type Activity Date Activity User E-sign Co-sign Detail Recorded Client Recorded Date Recorded By Document 06/17/23 12:12 RB [id number] 06/17/23 12:14 RB Document 06/20/23 12:13 KW Desktop 06/20/23 12:15 KW Document 06/20/23 12:16 KW Desktop 06/20/23 12:16 KW Document 06/24/23 10:19 KW Desktop 06/24/23 10:20 KW Document 06/27/23 12:50 RB [id number] 06/27/23 12:52 RB Document 07/01/23 10:38 Laptop 07/01/23 10:39 JF 06/17/23 06/20/23 06/20/23 12:12 12:13 12:16 Wound Care Center Nurse 3 4. R ankle lateral -Ulcer Cleansing Rinsed/ Soap and Water Irrigated with Saline -Primary Dressing Applied NonAdherent NonAdherent Contact Layer Contact Layer -Other Dressing HYDROGEL -Primary Dressing Covered/Secured with Dry Gauze Dry Gauze Right -Multi-Layered Wrap Application Unna Boot - Unna Boot - Right ($) Right ($) -Tubular Bandage -Size of Tubigrip Used -Size E ($) Treatment Response Procedure Tolerated Well Vital Signs Temperature (97.8 F-99.1 F) 97.4 F L Temperature Source Temporal Pulse Rate (60-100) 69 Pulse Location Monitor Respiratory Rate (12-18) 18 Respiratory rate source Blood Pressure (90/60-120/80) 132/58 H Blood Pressure Mean (mm Hg) 82 Source Monitor Position Semi-Fowlers Blood Pressure Location Left Arm Pain Scale: 0-10 Numeric Is Patient Pain Free? Yes Yes Yes Teaching: Wound Center Compression Wraps & Stockings -Person Taught Patient -Teaching Method Discussion, Demonstration -Response to teaching Verbalize understanding Dressing Your Wound -Person Taught Patient -Teaching Method Discussion, Demonstration -Response to teaching Verbalize understanding WC - Visit Discharge Discharge Condition Stable Stable Ambulatory Status Ambulatory Ambulatory, Walker Transportation Private Auto Medication Reconcilliation completed & No No provided to patient/care provider Clinical Summary of Care Provided Yes Yes 06/24/23 06/27/23 07/01/23 10:19 12:50 10:38 Wound Care Center Nurse 3 4. R ankle lateral -Ulcer Cleansing Wound Cleanser Rinsed/ Irrigated with Saline -Primary Dressing Applied NonAdherent Contact Layer -Other Dressing hydrogel sample silicone foam -Primary Dressing Covered/Secured with Dry Gauze & Dry Gauze Dry Gauze Roll Gauze, Secured with Tape Right -Multi-Layered Wrap Application Unna Boot - Unna Boot - Right ($) Right ($) -Tubular Bandage Single Layer -Size of Tubigrip Used Size E -Size E ($) 1 Treatment Response Procedure Tolerated Well Vital Signs Temperature (97.8 F-99.1 F) 96.1 F L Temperature Source Temporal Pulse Rate (60-100) 75 Pulse Location Monitor Respiratory Rate (12-18) 18 Respiratory rate source Observation Blood Pressure (90/60-120/80) 114/61 Blood Pressure Mean (mm Hg) 78 Source Monitor Position Semi-Fowlers Blood Pressure Location Left Arm Pain Scale: 0-10 Numeric Is Patient Pain Free? Yes Yes Yes Teaching: Wound Center Compression Wraps & Stockings -Person Taught -Teaching Method -Response to teaching Dressing Your Wound -Person Taught -Teaching Method -Response to teaching WC - Visit Discharge Discharge Condition Stable Stable Stable Ambulatory Status Ambulatory, Ambulatory Ambulatory, Walker Walker Transportation Private Auto Private Auto Private Auto Medication Reconcilliation completed & No No Yes provided to patient/care provider Clinical Summary of Care Provided Yes Yes Yes Assessment/Plan Assessment/Plan (1) Other specified peripheral vascular diseases: CODE(S): I73.89 - Other specified peripheral vascular diseases PLAN: Exam performed Previous radiographs reviewed, no concern for osteomyelitis. Arterial studies demonstrate diminished flow in right lower extremity. Vascular referral placed. Wound likely related to venous insufficiency. Recommend compression elevation and exercise for edema management. Right lateral ankle wound was debrided excisionally down to including level of subcutaneous tissue of all nonviable tissue with pickups and #15 blade without incident. Hemostasis obtained with light compression. Patient tolerated procedure well. Topical anesthesia used. Pre and postdebridement measurements documented nursing notes. Today wound was dressed with EpiFix graft. 2 x 2 centimeter graft. Entire graft used. No waste. Graft was secured with overlying wound veil and Steri- Strips. Site was dressed with dry sterile dressing and double Tubigrip. Consider additional lab work to rule out anemia or immune compromise if there are any delays in healing. Follow-up in 1 week. (2) Non-pressure chronic ulcer of right ankle with fat layer exposed: CODE(S): L97.312 - Non-pressure chronic ulcer of right ankle with fat layer exposed
== END 2023-07-13 23:59 | disposition home or self-care (01) ==
LOC: WC 10:45
PROVIDERS: PCP Internal Medicine; Referring Provider Dermatology; Visit Provider Podiatrist
DX: E11.622 Type 2 diabetes mellitus with other skin ulcer (principal); L97.312 Non-pressure chronic ulcer of right ankle with fat layer exposed; I50.32 Chronic diastolic (congestive) heart failure; I11.0 Hypertensive heart disease with heart failure; I42.1 Obstructive hypertrophic cardiomyopathy; E11.51 Type 2 diabetes mellitus with diabetic peripheral angiopathy without gangrene; E11.59 Type 2 diabetes mellitus with other circulatory complications; E11.40 Type 2 diabetes mellitus with diabetic neuropathy, unspecified; I25.10 Atherosclerotic heart disease of native coronary artery without angina pectoris; E78.5 Hyperlipidemia, unspecified; I87.2 Venous insufficiency (chronic) (peripheral); Z79.899 Other long term (current) drug therapy; Z79.01 Long term (current) use of anticoagulants; R60.0 Localized edema
CPT/HCPCS: 11042; 15271; 29580; 93923; 93970; 99213; Q4186; G0463

== ENCOUNTER → 2023-07-08 | Outpatient (CLI) | payer MEDICARE, OTHER, SELFPAY ==
--- NOTE | 2023-06-19 16:09 | WC ---
Pt called in C/O unna boots being to tight and were painful. Wanted to know if she could cut the alittle. Pt instructed to remove them not cut them if she was unconfortable and to use her compression stocking if possible and keep legs elevated until she comes in for her Nurse Visit tomorrow. Pt voice understanding.
--- NOTE | 2023-07-08 13:20 | BD_ITS ---
STUDY: DUAL ENERGY X-RAY ABSORPTIOMETRY / DXA REASON FOR EXAM: Female, 87 years old. [id number] TECHNIQUE: Bone Mineral Density (BMD) measurements of lumbar spine and bilateral hips were obtained. COMPARISON: Comparison is made with prior study dated July 03, 2021. FINDINGS: Lumbar Spine (L1-L4): g/cm2 (1.083) / T-score (0.3) / Z-score (3.2) Findings are suggestive of normal bone density with a low fracture risk. Left Femur Total: g/cm2 (0.749) / T-score (-1.6) / Z-score (0.8) Left Femoral Neck: g/cm2 (0.620) / T-score (-2.1) / Z-score (0.5) Right Femur Total: g/cm2 (0.720) / T-score (-1.8) / Z-score (0.5) Right Femoral Neck: g/cm2 (0.654) / T-score (-1.8) / Z-score (0.8) The T-Scores on the most recent prior examination were: Lumbar Spine (L1-L4): There has been improvement of bone density since the previous examination. Left Femur Total: which represents an improvement of 0.1%. Right Femur Total: which represents a worsening of 0.9%. BD/Dexa Bone Density Study IMPRESSION: The patient is considered osteopenic as outlined below according to World [place] Organization (WHO) criteria with a high fracture risk. There has been improvement of bone density since the previous examination. Reference Information: The T-score is the number of standard deviations above or below the standard which is normal for young adults at their peak bone mineral density. The World Health Organization (WHO) interprets the T-scores as follows: Above -1 Normal bone density Between -1 and -2.5 Osteopenia Equal to / or below -2.5 Osteoporosis As a practical clinical guideline, osteopenia may be graded as follows: Mild -1 through -1.5 Moderate -1.6 through -2.0 Severe -2.1 through -2.4 The Z-score is the number of standard deviations above or below age-matched controls. A Z-score of less than -1.5 would be considered abnormal. References: 1. NIH Osteoporosis and Related Bone Diseases www osteo.org 2. International Society for Clinical Densitometry www iscd.org 3. National Osteoporosis Foundation www nof.org Electronically Signed: Denis Casillas MD at 9:57 EDT ,
--- NOTE | 2023-07-08 13:20 | BI_ITS ---
MAMMOGRAPHY - BILATERAL SCREENING REASON FOR EXAM: Female, 87 years old. Routine annual screening examination. PERTINENT HISTORY: Non-contributory. TECHNIQUE: Digital bilateral breast linda (3D mammographic acquisition) in the CC and MLO projections. 2-D mediolateral oblique (MLO) and craniocaudad (CC) views of both breasts were obtained. CAD: Full Field Digital Mammography with Computer Added Detection was performed. COMPARISON: Comparison is made with prior study dated July 05, 2022 and July 03, 2021. FINDINGS: Breast Composition: The breasts are almost entirely fatty. There are no dominant masses or suspicious calcifications. A battery pack from a pacemaker device is seen in the left axilla. No other significant abnormalities are identified. There has been no significant change since the prior study. BI/SCRN MAMM (CAD)W/LINDA BILAT IMPRESSION: Stable bilateral screening mammogram. Yearly follow-up mammogram recommended. (A) ASSESSMENT CATEGORY: BIRADS Category 2: Benign. A letter regarding these results will be sent to the patient by the facility within 30 days. Approximately 10% of breast cancers are not detected by mammography. A normal mammogram should not delay biopsy of a clinically suspicious abnormality. [id number] Electronically Signed: Denis Casillas MD at 15:30 EDT ,
== END | disposition home or self-care (01) ==
LOC: OPBD 13:18
PROVIDERS: PCP Internal Medicine; Referring Provider Internal Medicine; Visit Provider Internal Medicine
DX: Z12.31 Encounter for screening mammogram for malignant neoplasm of breast (principal); Z78.0 Asymptomatic menopausal state
CPT/HCPCS: 77063; 77067; 77080

== ENCOUNTER 2023-07-28 15:39 | Outpatient (RCR) | payer MEDICARE, OTHER, SELFPAY ==
[2023-07-30 05:07] LABS: Immunoglobulin G 418 mg/dL (586-1602)
== END 2023-08-12 22:13 | disposition home or self-care (01) ==
LOC: MTLAB 15:39
PROVIDERS: Internal Medicine Medical Oncology; PCP Internal Medicine; Referring Provider Physician Assistant Medical; Visit Provider Physician Assistant Medical
DX: Z79.01 Long term (current) use of anticoagulants (principal); I48.0 Paroxysmal atrial fibrillation; I48.92 Unspecified atrial flutter
CPT/HCPCS: 36415; 82784

== ENCOUNTER 2023-07-30 14:00 | Outpatient (RCR) | payer MEDICARE, OTHER, SELFPAY ==
[2023-07-30 15:49] LABS: International Normalized Ratio 2.7; Prothrombin Time (Protime)PT. 28.3 SECONDS (11.7-14.9)
== END 2023-08-12 23:07 | disposition home or self-care (01) ==
LOC: LAB 14:00
PROVIDERS: PCP Internal Medicine; Referring Provider Internal Medicine Cardiovascular Disease; Visit Provider Internal Medicine Cardiovascular Disease
DX: I48.0 Paroxysmal atrial fibrillation (principal); Z79.01 Long term (current) use of anticoagulants
CPT/HCPCS: 36415; 85610

== ENCOUNTER 2023-08-07 07:39 | Day surgery (SDC) | payer MEDICARE, OTHER, SELFPAY ==
[2023-08-07 07:57] LABS: Prothrombin Time Fingerstick 38.6 SEC (11.7-14.9)
[2023-08-07 07:57] LABS: INR Fingerstick 4.4; Prothrombin Time Fingerstick 42.5 SEC (11.7-14.9)
--- NOTE | 2023-08-07 17:02 | OP.PCM_ITS ---
Report of Operation Date of Procedure: 08/07/23 Pre-Operative Diagnosis: Venous insufficiency with ulceration of the right lower extremity Post-Operative Diagnosis: Same Surgery/Procedure Performed:: Chemical ablation of the right below the knee great saphenous and small saphenous vein Surgeon: Luke Foster Type of Anesthesia: Local and Sedation,Conscious Estimated Blood Loss (mL): 3 Description of Procedure: HPI: Patient is a 87-year-old female with ulceration of the right lower extremity which is failed to heal despite local care and compression. She had venous duplex imaging which revealed reflux of the small saphenous vein in the below the knee great saphenous vein and felt to be contributing to her poor wound healing. She is taken now for chemical ablation. Description of procedure: Upon obtaining form consent and verification correct patient procedure site patient taken to [facility] where she was positioned prepped and draped in usual fashion. Time was performed, sedation administered Versed and fentanyl. Ultrasound used to evaluate the great saphenous vein from the ankle to the knee. At the knee of the vessel terminated into multiple small varicose branches that projected towards the thigh. Skin overlying the saphenous at the ankle was anesthetized and the vessel accessed under the fascia on micropuncture needle wire. This then exchanged out for the 7 [place] ablation sheath which is advanced into position. Through the ablation sheath the glue delivery guide was advanced in position at the superior aspect of the great saphenous vein. The glue delivery catheter was then advanced in position and glue deposited along the treatment segment. After the treatment segment had been completed the guide and catheter withdrawn as well as the 7 [place] sheath followed by 5 minutes of manual pressure with satisfactory stasis noted. Ultrasound guidance we evaluated the small saphenous vein and skin overlying the vessel in the distal calf was anesthetized. The vessel was then accessed in retrograde fashion with a micropuncture needle wire for the exchanged for 7 [place] sheath. Ablation guide was then advanced and positioned in the superior aspect of the cath and the glue delivery catheter advanced into position. Close in the pause along the treatment segment down to the sheath was then withdrawn and manual pressure held. Patient's leg was then wrapped in Hank wrap and then she was taken to recovery room with plan to discharge to home.
== END 2023-08-07 13:20 | disposition home or self-care (01) ==
LOC: CLSP 07:40
PROVIDERS: PCP Internal Medicine; Referring Provider Surgery Trauma Surgery; Visit Provider Surgery Trauma Surgery
DX: E11.622 Type 2 diabetes mellitus with other skin ulcer (principal); I83.013 Varicose veins of right lower extremity with ulcer of ankle; L97.319 Non-pressure chronic ulcer of right ankle with unspecified severity; E11.51 Type 2 diabetes mellitus with diabetic peripheral angiopathy without gangrene; E11.59 Type 2 diabetes mellitus with other circulatory complications; I87.2 Venous insufficiency (chronic) (peripheral); I83.92 Asymptomatic varicose veins of left lower extremity
CPT/HCPCS: 36416; 36482; 36483; 85610; 99152; 99153; C1894

== ENCOUNTER 2023-08-11 14:15 | Outpatient (CLI) | payer MEDICARE, OTHER, SELFPAY ==
[2023-07-22 09:55] VITALS: BP 132/60; PULSE 67; RESP 18; TEMP 36.6
--- NOTE | 2023-08-11 14:15 | VDLE_ITS ---
Reason For Study: S/P Rt GSV/SSV Chemical Ablation RIGHT GSV from junction to knee is compressible. GSV from Prox calf to ankle appears NONCOMPRESSIBLE with hyperechoic intraluminal echoes. Finding is consistent with recent chemical ablation procedure. SSV, including Posterior thigh ASV branch, appears dilated and NONCOMPRESSIBLE with hyperechoic intraluminal echoes from mid thigh to ankle. Finding is consistent with recent chemical ablation procedure. CFV is compressible, spontaneous, phasic, competent and demonstrates normal augmentation. FV is compressible, spontaneous, phasic, competent and demonstrates normal augmentation. POP V is compressible, spontaneous, phasic, competent and demonstrates normal augmentation. T/P Trunk is compressible. PTV is compressible. RT PerV is compressible. Procedure This is a venous duplex using B-mode, color flow and spectral Doppler. Exam performed in department. The exam was diagnostic. VL/Venous Duplex US, Unilateral Interpretation Summary Deep veins of the right lower extremity are patent and compressible segmentally . There is no evidence of right lower extremity deep vein thrombosis. Right great saphenous vein below the knee and small saphenous vein occluded con sistent with recent chemical ablation Ordering Physician: Shelia Santos Referring Physician: Susie Dang Performed By: Adán Morin RVT
== END 2023-08-11 23:59 | disposition home or self-care (01) ==
LOC: CVS 14:15
PROVIDERS: PCP Internal Medicine; Referring Provider Surgery Trauma Surgery; Visit Provider Surgery Trauma Surgery
DX: I25.10 Atherosclerotic heart disease of native coronary artery without angina pectoris (principal); L98.499 Non-pressure chronic ulcer of skin of other sites with unspecified severity; I87.2 Venous insufficiency (chronic) (peripheral); Z48.812 Encounter for surgical aftercare following surgery on the circulatory system
CPT/HCPCS: 93971

== ENCOUNTER 2023-08-12 10:15 | Outpatient (RCR) | payer MEDICARE, OTHER, SELFPAY ==
[2023-07-14 00:33] VITALS: BP 122/63; PULSE 67; RESP 18; TEMP 36.2
[2023-07-15 10:19] VITALS: BP 108/54; PULSE 76; RESP 18; TEMP 35.7
--- NOTE | 2023-07-15 10:54 | PN.PCM_ITS ---
History of Present Illness Date of Service: 07/15/23 Chief Complaint: Right lower extremity wound History of Wound: Patient is an 87-year-old female with history of atherosclerotic disease, peripheral vascular disease, Raynaud's, hyperlipidemia who presents for follow-up on a right lateral leg ulceration. Objective Data Objective Data Vital Signs: Vital Signs Temp Pulse Resp BP 96.2 F L 76 18 108/54 L 07/15/23 10:19 07/15/23 10:19 07/15/23 10:19 07/15/23 10:19 Physical Exam Narrative Vascular: Dorsalis pedis posterior tibial pulses diminished bilateral feet. +1 pitting edema to right lower extremity. Signs of hemosiderin deposits as well as varicosities noted bilaterally. Neurologic: Light touch protective sensation intact bilateral feet. Dermatologic: Full-thickness wound to the lateral malleolus of the right ankle. Fibrogranular base noted postdebridement. No acute signs of infection. No deep probing or undermining. Musculoskeletal: No sign DVT. Muscular strength full. No wound forming deformity noted. Debridement Note Debridement Note Post-Debridement Measurements and Additional Note: Post-Debridement Measurements/Treatment - Nurse 1 - General Ulcer Assessment Start: 07/15/23 10:19 Freq: Status: Active Protocol: .LOWEXT Activity Type Activity Date Activity User E-sign Co-sign Detail Recorded Client Recorded Date Recorded By Document 07/15/23 10:19 Desktop 07/15/23 10:21 07/15/23 10:19 - Today's Visit Information Type of service Follow-up Visit (Physician/INTERPRETIVE PROGRAM COORDINATOR ) Arrival Mode Ambulatory, Walker Transfer Assistance None Patient Identification Verified (Name & Yes ) Patient Requires Transmission-Based No Precautions Vital Signs Temperature (97.8 F-99.1 F) 96.2 F L Temperature Source Temporal Pulse Rate (60-100) 76 Pulse Location Monitor Respiratory Rate (12-18) 18 Respiratory rate source Observation Blood Pressure (90/60-120/80) 108/54 L Blood Pressure Mean (mm Hg) 72 Source Monitor Position Semi-Fowlers Blood Pressure Location Left Arm History Since Last Visit- (Skip if this is Patient's initial visit) Have you changed medications since your No last visit? Any new allergies or adverse reactions No Had a fall/change in ADL's that may No increase risk of falls Signs or symptoms of abuse and/or No neglect since last visit Have you been in the hospital since your No last visit? Has dressing in place as prescribed Yes Has compression in place as prescribed Yes Has offloadiing in place as prescribed No Experienced any changes in pain level or No management Pain Scale: 0-10 Numeric Is Patient Pain Free? Yes - Nurse 1 - General Ulcer Measurement Start: 07/15/23 10:19 Freq: Status: Active Protocol: Activity Type Activity Date Activity User E-sign Co-sign Detail Recorded Client Recorded Date Recorded By Document 07/15/23 10:19 RB Desktop 07/15/23 10:21 RB 07/15/23 10:19 Wound Center Nurse 1 4. R ankle lateral -Combined with other wound No -Current Size (cm) - Length 1.6 -Current Size (cm) - Width 1 -Current Size (cm) - Depth 0.2 -Total Square Cm 1.6 -Tunneling No -Undermining/Tunneling No -Circular Undermining No -Exudate Amt Large -Exudate Type Serosanguineous -Wound Margin Distinct, Outline Attached -Granulation Amt Medium (34-66%) -Granulation Quality [place] -Slough/Fibrin Yes -Necrosis Amt Medium (34-66%) -Necrotic Tissue Type Adherent Slough -Structure Exposed N/A -Texture (Chitra-wound Skin Appearance) Assessed -Moisture (Chitra-wound Skin Appearance) Assessed -Color (Chitra-wound Skin Appearance) Hemosiderin Staining -Temperature (Chitra-wound Skin No Abnormality Appearance) (Pt Warm) -Tenderness on Palpation (Chitra-wound No Skin Appearance) -Ulcer Cleansing Wound Cleanser -Foul Odor after Cleansing No -Anesthetic Used 5% Lidocaine Gel Lower Limb Edema Present Yes Right Calf (cm) 32 Right Ankle (cm) 22.5 - Nurse 2 - General Ulcer CM Notes Start: 07/15/23 10:19 Freq: Status: Active Protocol: Activity Type Activity Date Activity User E-sign Co-sign Detail Recorded Client Recorded Date Recorded By Document 07/15/23 10:35 Laptop 07/15/23 10:36 07/15/23 10:35 Wound Center Nurse 2 4. R ankle lateral -Time 10:35 -Correct Patient Yes -Correct Side, Site, Position Yes -Correct Procedure Yes -Procedure Performed Yes -Type of Procedure Debridement -Clinical Debridement Subcutaneous -Tissue Removed Subcutaneous -Post Debridement (cm) - Length 1.5 -Post Debridement (cm) - Width 0.9 -Post Debridement (cm) - Depth 0.2 -Total Square (Post) (cm) 1.35 -Area of Debridement (cm) - Length 1.5 -Area of Debridement (cm) - Width 0.9 -Total Square (Area) (cm) 1.35 -Tunneling No -Undermining/Tunneling No -Circular Undermining No -Wound/Ulcer Outcome Not Healed -Ulcer Cleansing Wound Cleanser -Foul Odor after Cleansing No -Bioengineered Tissue No -Bleeding Controlled with Pressure -Treatment Response Procedure Tolerated Well -Offloading No -Debridement - Subq, 1st 20sq cm Yes Pain Scale: 0-10 Numeric Is Patient Pain Free? Yes Assessment/Plan Assessment/Plan (1) Other specified peripheral vascular diseases: CODE(S): I73.89 - Other specified peripheral vascular diseases PLAN: Exam performed Previous radiographs reviewed, no concern for osteomyelitis. vascular surgery planning for venous procedure Recommend compression elevation and exercise for edema management. Right lateral ankle wound was debrided excisionally down to including level of subcutaneous tissue of all nonviable tissue with pickups and #15 blade without incident. Hemostasis obtained with light compression. Patient tolerated procedure well. Topical anesthesia used. Pre and postdebridement measurements documented nursing notes. no epifix graft today continue with hydrogel, DSD, compression Consider additional lab work to rule out anemia or immune compromise if there are any delays in healing. Follow-up in 1 week. (2) Non-pressure chronic ulcer of right ankle with fat layer exposed: CODE(S): L97.312 - Non-pressure chronic ulcer of right ankle with fat layer exposed
--- NOTE | 2023-07-22 10:52 | PN.PCM_ITS ---
History of Present Illness Date of Service: 07/22/23 Chief Complaint: Right lower extremity wound History of Wound: Patient is an 87-year-old female with history of atherosclerotic disease, peripheral vascular disease, Raynaud's, hyperlipidemia who presents for follow-up on a right lateral leg ulceration. Objective Data Objective Data Vital Signs: Vital Signs Temp Pulse Resp BP 96.2 F L 76 18 108/54 L 07/15/23 10:19 07/15/23 10:19 07/15/23 10:19 07/15/23 10:19 Physical Exam Narrative Vascular: Dorsalis pedis posterior tibial pulses diminished bilateral feet. +1 pitting edema to right lower extremity. Signs of hemosiderin deposits as well as varicosities noted bilaterally. Neurologic: Light touch protective sensation intact bilateral feet. Dermatologic: Full-thickness wound to the lateral malleolus of the right ankle. Fibrogranular base noted postdebridement. No acute signs of infection. No deep probing or undermining. Musculoskeletal: No sign DVT. Muscular strength full. No wound forming deformity noted. Debridement Note Debridement Note Post-Debridement Measurements and Additional Note: Post-Debridement Measurements/Treatment - Nurse 1 - General Ulcer Assessment Start: 07/15/23 10:19 Freq: Status: Active Protocol: .LOWEXT Activity Type Activity Date Activity User E-sign Co-sign Detail Recorded Client Recorded Date Recorded By Document 07/15/23 10:19 Desktop 07/15/23 10:21 07/15/23 10:19 - Today's Visit Information Type of service Follow-up Visit (Physician/COMMUNITY HEALTH DIRECTOR ) Arrival Mode Ambulatory, Walker Transfer Assistance None Patient Identification Verified (Name & Yes ) Patient Requires Transmission-Based No Precautions Vital Signs Temperature (97.8 F-99.1 F) 96.2 F L Temperature Source Temporal Pulse Rate (60-100) 76 Pulse Location Monitor Respiratory Rate (12-18) 18 Respiratory rate source Observation Blood Pressure (90/60-120/80) 108/54 L Blood Pressure Mean (mm Hg) 72 Source Monitor Position Semi-Fowlers Blood Pressure Location Left Arm History Since Last Visit- (Skip if this is Patient's initial visit) Have you changed medications since your No last visit? Any new allergies or adverse reactions No Had a fall/change in ADL's that may No increase risk of falls Signs or symptoms of abuse and/or No neglect since last visit Have you been in the hospital since your No last visit? Has dressing in place as prescribed Yes Has compression in place as prescribed Yes Has offloadiing in place as prescribed No Experienced any changes in pain level or No management Pain Scale: 0-10 Numeric Is Patient Pain Free? Yes - Nurse 1 - General Ulcer Measurement Start: 07/15/23 10:19 Freq: Status: Active Protocol: Activity Type Activity Date Activity User E-sign Co-sign Detail Recorded Client Recorded Date Recorded By Document 07/15/23 10:19 RB Desktop 07/15/23 10:21 RB 07/15/23 10:19 Wound Center Nurse 1 4. R ankle lateral -Combined with other wound No -Current Size (cm) - Length 1.6 -Current Size (cm) - Width 1 -Current Size (cm) - Depth 0.2 -Total Square Cm 1.6 -Tunneling No -Undermining/Tunneling No -Circular Undermining No -Exudate Amt Large -Exudate Type Serosanguineous -Wound Margin Distinct, Outline Attached -Granulation Amt Medium (34-66%) -Granulation Quality [place] -Slough/Fibrin Yes -Necrosis Amt Medium (34-66%) -Necrotic Tissue Type Adherent Slough -Structure Exposed N/A -Texture (Chitra-wound Skin Appearance) Assessed -Moisture (Chitra-wound Skin Appearance) Assessed -Color (Chitra-wound Skin Appearance) Hemosiderin Staining -Temperature (Chitra-wound Skin No Abnormality Appearance) (Pt Warm) -Tenderness on Palpation (Chitra-wound No Skin Appearance) -Ulcer Cleansing Wound Cleanser -Foul Odor after Cleansing No -Anesthetic Used 5% Lidocaine Gel Lower Limb Edema Present Yes Right Calf (cm) 32 Right Ankle (cm) 22.5 - Nurse 2 - General Ulcer CM Notes Start: 07/15/23 10:19 Freq: Status: Active Protocol: Activity Type Activity Date Activity User E-sign Co-sign Detail Recorded Client Recorded Date Recorded By Document 07/15/23 10:35 Laptop 07/15/23 10:36 Document 07/22/23 10:12 Laptop 07/22/23 10:18 07/15/23 07/22/23 10:35 10:12 Wound Center Nurse 2 4. R ankle lateral -Time 10:35 10:17 -Correct Patient Yes Yes -Correct Side, Site, Position Yes Yes -Correct Procedure Yes Yes -Procedure Performed Yes Yes -Type of Procedure Debridement Debridement -Clinical Debridement Subcutaneous Subcutaneous -Tissue Removed Subcutaneous Subcutaneous -Post Debridement (cm) - Length 1.5 1.5 -Post Debridement (cm) - Width 0.9 0.9 -Post Debridement (cm) - Depth 0.2 0.1 -Total Square (Post) (cm) 1.35 1.35 -Area of Debridement (cm) - Length 1.5 1.5 -Area of Debridement (cm) - Width 0.9 0.9 -Total Square (Area) (cm) 1.35 1.35 -Tunneling No No -Undermining/Tunneling No No -Circular Undermining No No -Wound/Ulcer Outcome Not Healed Not Healed -Ulcer Cleansing Wound Cleanser Rinsed/ Irrigated with Saline -Foul Odor after Cleansing No No -Bioengineered Tissue No No -Bleeding Controlled with Pressure Pressure -Treatment Response Procedure Procedure Tolerated Well Tolerated Well -Offloading No No -Debridement - Subq, 1st 20sq cm Yes Yes Pain Scale: 0-10 Numeric Is Patient Pain Free? Yes Yes - Nurse 3 - General Ulcer D/C NN Start: 07/15/23 10:19 Freq: Status: Active Protocol: Activity Type Activity Date Activity User E-sign Co-sign Detail Recorded Client Recorded Date Recorded By Document 07/15/23 10:55 CP Desktop 07/15/23 10:58 CP 07/15/23 10:55 Wound Care Center Nurse 3 4. R ankle lateral -Ulcer Cleansing Rinsed/ Irrigated with Saline -Foul Odor after Cleansing No -Primary Dressing Applied C Hydrogel ($) -Other Dressing hydrogel, adaptic -Primary Dressing Covered/Secured with Dry Gauze & Roll Gauze, Secured with Tape Treatment Response Procedure Tolerated Well Pain Scale: 0-10 Numeric Is Patient Pain Free? Yes - Visit Discharge Discharge Condition Stable Ambulatory Status Ambulatory, Walker Transportation Private Auto Medication Reconcilliation completed & No provided to patient/care provider Clinical Summary of Care Provided Yes Assessment/Plan Assessment/Plan (1) Other specified peripheral vascular diseases: CODE(S): I73.89 - Other specified peripheral vascular diseases PLAN: Exam performed Previous radiographs reviewed, no concern for osteomyelitis. vascular surgery planning for venous procedure 08/07/23 Recommend compression elevation and exercise for edema management. Right lateral ankle wound was debrided excisionally down to including level of subcutaneous tissue of all nonviable tissue with pickups and #15 blade without incident. Hemostasis obtained with light compression. Patient tolerated procedure well. Topical anesthesia used. Pre and postdebridement measurements documented nursing notes. no epifix graft today rx for santyl to be used daily with DSD/tubigrip Consider additional lab work to rule out anemia or immune compromise if there are any delays in healing. Follow-up in 1 week. (2) Non-pressure chronic ulcer of right ankle with fat layer exposed: CODE(S): L97.312 - Non-pressure chronic ulcer of right ankle with fat layer exposed
--- NOTE | 2023-07-25 09:47 | WC ---
4.9.24 RT LAT ANKLE
[2023-07-29 11:22] VITALS: BP 113/59; PULSE 66; RESP 18; TEMP 36.4
--- NOTE | 2023-07-29 11:40 | PN.PCM_ITS ---
History of Present Illness Date of Service: 07/29/23 Chief Complaint: Right lower extremity wound History of Wound: Patient is an 87-year-old female with history of atherosclerotic disease, peripheral vascular disease, Raynaud's, hyperlipidemia who presents for follow-up on a right lateral leg ulceration. Objective Data Objective Data Vital Signs: Vital Signs Temp Pulse Resp BP 97.5 F L 66 18 113/59 L 07/29/23 11:22 07/29/23 11:22 07/29/23 11:22 07/29/23 11:22 Physical Exam Narrative Vascular: Dorsalis pedis posterior tibial pulses diminished bilateral feet. +1 pitting edema to right lower extremity. Signs of hemosiderin deposits as well as varicosities noted bilaterally. Neurologic: Light touch protective sensation intact bilateral feet. Dermatologic: Full-thickness wound to the lateral malleolus of the right ankle. Fibrogranular base noted postdebridement. No acute signs of infection. No deep probing or undermining. Musculoskeletal: No sign DVT. Muscular strength full. No wound forming deformity noted. Debridement Note Debridement Note Post-Debridement Measurements and Additional Note: Post-Debridement Measurements/Treatment - Nurse 1 - General Ulcer Assessment Start: 07/15/23 10:19 Freq: Status: Active Protocol: .LOWEXTayo Activity Type Activity Date Activity User E-sign Co-sign Detail Recorded Client Recorded Date Recorded By Document 07/15/23 10:19 RB Desktop 07/15/23 10:21 RB Document 07/29/23 11:22 DL Desktop 07/29/23 11:29 DL 07/15/23 07/29/23 10:19 11:22 - Today's Visit Information Type of service Follow-up Visit Follow-up Visit (Physician/ENGINEERING AND OPERATIONS DIRECTOR (Physician/ENGINEERING AND OPERATIONS DIRECTOR ) ) Arrival Mode Ambulatory, Ambulatory Walker Transfer Assistance None None Patient Identification Verified (Name & Yes Yes ) Patient Requires Transmission-Based No No Precautions Vital Signs Temperature (97.8 F-99.1 F) 96.2 F L 97.5 F L Temperature Source Temporal Temporal Pulse Rate (60-100) 76 66 Pulse Location Monitor Monitor Respiratory Rate (12-18) 18 18 Respiratory rate source Observation Observation Blood Pressure (90/60-120/80) 108/54 L 113/59 L Blood Pressure Mean (mm Hg) 72 77 Source Monitor Monitor Position Semi-Fowlers Blood Pressure Location Left Arm History Since Last Visit- (Skip if this is Patient's initial visit) Have you changed medications since your No No last visit? Any new allergies or adverse reactions No No Had a fall/change in ADL's that may No No increase risk of falls Signs or symptoms of abuse and/or No No neglect since last visit Have you been in the hospital since your No No last visit? Has dressing in place as prescribed Yes Yes Has compression in place as prescribed Yes No Has offloadiing in place as prescribed No N/A Experienced any changes in pain level or No No management Pain Scale: 0-10 Numeric Is Patient Pain Free? Yes Yes WC - Nurse 1 - General Ulcer Measurement Start: 07/15/23 10:19 Freq: Status: Active Protocol: Activity Type Activity Date Activity User E-sign Co-sign Detail Recorded Client Recorded Date Recorded By Document 07/15/23 10:19 RB Desktop 07/15/23 10:21 RB Document 07/29/23 11:22 DL Desktop 07/29/23 11:29 DL 07/15/23 07/29/23 10:19 11:22 Wound Center Nurse 1 4. R ankle lateral -Combined with other wound No -Current Size (cm) - Length 1.6 1.8 -Current Size (cm) - Width 1 1.1 -Current Size (cm) - Depth 0.2 0.2 -Total Square Cm 1.6 1.98 -Tunneling No -Undermining/Tunneling No -Circular Undermining No -Exudate Amt Large Medium -Exudate Type Serosanguineous Serosanguineous -Wound Margin Distinct, Distinct, Outline Outline Attached Attached -Granulation Amt Medium (34-66%) Small (1-33%) -Granulation Quality [place] -Slough/Fibrin Yes -Necrosis Amt Medium (34-66%) Large (67-100%) -Necrotic Tissue Type Adherent Slough Adherent Slough -Structure Exposed N/A N/A -Texture (Chitra-wound Skin Appearance) Assessed Scarring,Rash -Moisture (Chitra-wound Skin Appearance) Assessed Dry/Scaly -Color (Chitra-wound Skin Appearance) Hemosiderin No Abnormality Staining -Temperature (Chitra-wound Skin No Abnormality No Abnormality Appearance) (Pt Warm) (Pt Warm) -Tenderness on Palpation (Chitra-wound No Skin Appearance) -Ulcer Cleansing Wound Cleanser Soap and Water -Foul Odor after Cleansing No No -Anesthetic Used 5% Lidocaine 5% Lidocaine Gel Gel Lower Limb Edema Present Yes Right Calf (cm) 32 30.5 Right Ankle (cm) 22.5 20.6 - Nurse 2 - General Ulcer CM Notes Start: 07/15/23 10:19 Freq: Status: Active Protocol: Activity Type Activity Date Activity User E-sign Co-sign Detail Recorded Client Recorded Date Recorded By Document 07/15/23 10:35 Laptop 07/15/23 10:36 Document 07/22/23 10:12 Laptop 07/22/23 10:18 07/15/23 07/22/23 10:35 10:12 Wound Center Nurse 2 4. R ankle lateral -Time 10:35 10:17 -Correct Patient Yes Yes -Correct Side, Site, Position Yes Yes -Correct Procedure Yes Yes -Procedure Performed Yes Yes -Type of Procedure Debridement Debridement -Clinical Debridement Subcutaneous Subcutaneous -Tissue Removed Subcutaneous Subcutaneous -Post Debridement (cm) - Length 1.5 1.5 -Post Debridement (cm) - Width 0.9 0.9 -Post Debridement (cm) - Depth 0.2 0.1 -Total Square (Post) (cm) 1.35 1.35 -Area of Debridement (cm) - Length 1.5 1.5 -Area of Debridement (cm) - Width 0.9 0.9 -Total Square (Area) (cm) 1.35 1.35 -Tunneling No No -Undermining/Tunneling No No -Circular Undermining No No -Wound/Ulcer Outcome Not Healed Not Healed -Ulcer Cleansing Wound Cleanser Rinsed/ Irrigated with Saline -Foul Odor after Cleansing No No -Bioengineered Tissue No No -Bleeding Controlled with Pressure Pressure -Treatment Response Procedure Procedure Tolerated Well Tolerated Well -Offloading No No -Debridement - Subq, 1st 20sq cm Yes Yes Pain Scale: 0-10 Numeric Is Patient Pain Free? Yes Yes - Nurse 3 - General Ulcer D/C NN Start: 07/15/23 10:19 Freq: Status: Active Protocol: Activity Type Activity Date Activity User E-sign Co-sign Detail Recorded Client Recorded Date Recorded By Document 07/15/23 10:55 CP Desktop 07/15/23 10:58 CP 07/15/23 10:55 Wound Care Center Nurse 3 4. R ankle lateral -Ulcer Cleansing Rinsed/ Irrigated with Saline -Foul Odor after Cleansing No -Primary Dressing Applied C Hydrogel ($) -Other Dressing hydrogel, adaptic -Primary Dressing Covered/Secured with Dry Gauze & Roll Gauze, Secured with Tape Treatment Response Procedure Tolerated Well Pain Scale: 0-10 Numeric Is Patient Pain Free? Yes WC - Visit Discharge Discharge Condition Stable Ambulatory Status Ambulatory, Walker Transportation Private Auto Medication Reconcilliation completed & No provided to patient/care provider Clinical Summary of Care Provided Yes Assessment/Plan Assessment/Plan (1) Other specified peripheral vascular diseases: CODE(S): I73.89 - Other specified peripheral vascular diseases PLAN: Exam performed Previous radiographs reviewed, no concern for osteomyelitis. vascular surgery planning for venous procedure 08/07/23 Recommend compression elevation and exercise for edema management. Right lateral ankle wound was debrided excisionally down to including level of subcutaneous tissue of all nonviable tissue with pickups and #15 blade without incident. Hemostasis obtained with light compression. Patient tolerated procedure well. Topical anesthesia used. Pre and postdebridement measurements documented nursing notes. no epifix graft today continue santyl to be used daily with DSD/tubigrip Consider additional lab work to rule out anemia or immune compromise if there are any delays in healing. Follow-up in 1 week. (2) Non-pressure chronic ulcer of right ankle with fat layer exposed: CODE(S): L97.312 - Non-pressure chronic ulcer of right ankle with fat layer exposed
[2023-08-05 10:17] VITALS: BP 136/60; PULSE 67; RESP 18; TEMP 35.8
--- NOTE | 2023-08-05 10:42 | PCM.WC.PN ---
History of Present Illness Date of Service: 08/05/23 Chief Complaint: Right lower extremity wound History of Wound: Patient is an 87-year-old female with history of atherosclerotic disease, peripheral vascular disease, Raynaud's, hyperlipidemia who presents for follow-up on a right lateral leg ulceration. Objective Data Objective Data Vital Signs: Vital Signs Temp Pulse Resp BP O2 Del Method 96.5 F L 67 18 136/60 H Room Air 08/05/23 10:17 08/05/23 10:17 08/05/23 10:17 08/05/23 10:17 08/05/23 10:17 Oxygen Delivery Method Room Air Physical Exam Narrative Vascular: Dorsalis pedis posterior tibial pulses diminished bilateral feet. +1 pitting edema to right lower extremity. Signs of hemosiderin deposits as well as varicosities noted bilaterally. Neurologic: Light touch protective sensation intact bilateral feet. Dermatologic: Full-thickness wound to the lateral malleolus of the right ankle. Fibrogranular base noted postdebridement. No acute signs of infection. No deep probing or undermining. Musculoskeletal: No sign DVT. Muscular strength full. No wound forming deformity noted. Debridement Note Debridement Note Post-Debridement Measurements and Additional Note: Post-Debridement Measurements/Treatment - Nurse 1 - General Ulcer Assessment Start: 07/15/23 10:19 Freq: Status: Active Protocol: JO.SILVIA Activity Type Activity Date Activity User E-sign Co-sign Detail Recorded Client Recorded Date Recorded By Document 07/15/23 10:19 RB Desktop 07/15/23 10:21 RB Document 07/29/23 11:22 DL Desktop 07/29/23 11:29 DL Document 08/05/23 10:17 KW Desktop 08/05/23 10:24 KW 07/15/23 07/29/23 08/05/23 10:19 11:22 10:17 - Today's Visit Information Type of service Follow-up Visit Follow-up Visit Follow-up Visit (Physician/AIRCONDITIONING DRAFTING OFFICER (Physician/AIRCONDITIONING DRAFTING OFFICER (Physician/AIRCONDITIONING DRAFTING OFFICER ) ) ) Arrival Mode Ambulatory, Ambulatory Ambulatory, Walker Walker Transfer Assistance None None Patient Identification Verified (Name & Yes Yes Yes ) Patient Requires Transmission-Based No No Precautions Vital Signs Temperature (97.8 F-99.1 F) 96.2 F L 97.5 F L 96.5 F L Temperature Source Temporal Temporal Temporal Pulse Rate (60-100) 76 66 67 Pulse Location Monitor Monitor Monitor Respiratory Rate (12-18) 18 18 18 Respiratory rate source Observation Observation Observation Oxygen Delivery Method Room Air Blood Pressure (90/60-120/80) 108/54 L 113/59 L 136/60 H Blood Pressure Mean (mm Hg) 72 77 85 Source Monitor Monitor Monitor Position Semi-Fowlers Semi-Fowlers Blood Pressure Location Left Arm Right Arm History Since Last Visit- (Skip if this is Patient's initial visit) Have you changed medications since your No No No last visit? Any new allergies or adverse reactions No No No Had a fall/change in ADL's that may No No No increase risk of falls Signs or symptoms of abuse and/or No No No neglect since last visit Have you been in the hospital since your No No No last visit? Has dressing in place as prescribed Yes Yes Yes Has compression in place as prescribed Yes No Yes Has offloadiing in place as prescribed No N/A N/A Experienced any changes in pain level or No No No management Left Footwear Regular Shoe Right Footwear Regular Shoe Pain Scale: 0-10 Numeric Is Patient Pain Free? Yes Yes No RT LAT ANKLE -Intensity 4 -Alleviating Factors/Interventions Medication WC - Nurse 1 - General Ulcer Measurement Start: 07/15/23 10:19 Freq: Status: Active Protocol: Activity Type Activity Date Activity User E-sign Co-sign Detail Recorded Client Recorded Date Recorded By Document 07/15/23 10:19 RB Desktop 07/15/23 10:21 RB Document 07/29/23 11:22 DL Desktop 07/29/23 11:29 DL Document 08/05/23 10:17 KW Desktop 08/05/23 10:24 KW 07/15/23 07/29/23 08/05/23 10:19 11:22 10:17 Wound Center Nurse 1 4. R ankle lateral -Combined with other wound No -Combined with (Name of Wound-Exactly 1.9 as it is documented) -Current Size (cm) - Length 1.6 1.8 1.2 -Current Size (cm) - Width 1 1.1 0.2 -Current Size (cm) - Depth 0.2 0.2 -Total Square Cm 1.6 1.98 0.24 -Tunneling No -Undermining/Tunneling No -Circular Undermining No -Exudate Amt Large Medium Small -Exudate Type Serosanguineous Serosanguineous Serosanguineous -Wound Margin Distinct, Distinct, Distinct, Outline Outline Outline Attached Attached Attached -Granulation Amt Medium (34-66%) Small (1-33%) Small (1-33%) -Granulation Quality [place] -Slough/Fibrin Yes -Necrosis Amt Medium (34-66%) Large (67-100%) Large (67-100%) -Necrotic Tissue Type Adherent Slough Adherent Slough Adherent Slough -Structure Exposed N/A N/A -Texture (Chitra-wound Skin Appearance) Assessed Scarring,Rash Assessed, Localized Edema -Moisture (Chitra-wound Skin Appearance) Assessed Dry/Scaly Assessed -Color (Chitra-wound Skin Appearance) Hemosiderin No Abnormality Assessed Staining -Temperature (Chitra-wound Skin No Abnormality No Abnormality No Abnormality Appearance) (Pt Warm) (Pt Warm) (Pt Warm) -Tenderness on Palpation (Chitra-wound No No Skin Appearance) -Ulcer Cleansing Wound Cleanser Soap and Water Rinsed/ Irrigated with Saline -Foul Odor after Cleansing No No No -Anesthetic Used 5% Lidocaine 5% Lidocaine 5% Lidocaine Gel Gel Gel Lower Limb Edema Present Yes Right Calf (cm) 32 30.5 30.5 Right Ankle (cm) 22.5 20.6 20.5 WC - Nurse 2 - General Ulcer CM Notes Start: 07/15/23 10:19 Freq: Status: Active Protocol: Activity Type Activity Date Activity User E-sign Co-sign Detail Recorded Client Recorded Date Recorded By Document 07/15/23 10:35 [employer] 07/15/23 10:36 Document 07/22/23 10:12 [place] [employer] 07/22/23 10:18 Document 07/29/23 11:39 [place] [employer] 07/29/23 11:41 Document 08/05/23 10:39 [place] [employer] 08/05/23 10:40 07/15/23 07/22/23 07/29/23 10:35 10:12 11:39 Wound Center Nurse 2 4. R ankle lateral -Time 10:35 10:17 11:40 -Correct Patient Yes Yes Yes -Correct Side, Site, Position Yes Yes Yes -Correct Procedure Yes Yes Yes -Procedure Performed Yes Yes Yes -Type of Procedure Debridement Debridement Debridement -Clinical Debridement Subcutaneous Subcutaneous Subcutaneous -Tissue Removed Subcutaneous Subcutaneous Subcutaneous -Post Debridement (cm) - Length 1.5 1.5 1.9 -Post Debridement (cm) - Width 0.9 0.9 1.1 -Post Debridement (cm) - Depth 0.2 0.1 0.2 -Total Square (Post) (cm) 1.35 1.35 2.09 -Area of Debridement (cm) - Length 1.5 1.5 1.9 -Area of Debridement (cm) - Width 0.9 0.9 1.1 -Total Square (Area) (cm) 1.35 1.35 2.09 -Tunneling No No No -Undermining/Tunneling No No No -Circular Undermining No No No -Wound/Ulcer Outcome Not Healed Not Healed Not Healed -Ulcer Cleansing Wound Cleanser Rinsed/ Rinsed/ Irrigated with Irrigated with Saline Saline -Foul Odor after Cleansing No No No -Bioengineered Tissue No No No -Bleeding Controlled with Pressure Pressure Pressure -Treatment Response Procedure Procedure Procedure Tolerated Well Tolerated Well Tolerated Well -Offloading No No No -Debridement - Subq, 1st 20sq cm Yes Yes Yes Pain Scale: 0-10 Numeric Is Patient Pain Free? Yes Yes Yes 08/05/23 10:39 Wound Center Nurse 2 4. R ankle lateral -Time 10:39 -Correct Patient Yes -Correct Side, Site, Position Yes -Correct Procedure Yes -Procedure Performed Yes -Type of Procedure Debridement -Clinical Debridement Subcutaneous -Tissue Removed Subcutaneous -Post Debridement (cm) - Length 1.6 -Post Debridement (cm) - Width 1.4 -Post Debridement (cm) - Depth 0.3 -Total Square (Post) (cm) 2.24 -Area of Debridement (cm) - Length 1.6 -Area of Debridement (cm) - Width 1.4 -Total Square (Area) (cm) 2.24 -Tunneling No -Undermining/Tunneling No -Circular Undermining No -Wound/Ulcer Outcome Not Healed -Ulcer Cleansing Rinsed/ Irrigated with Saline -Foul Odor after Cleansing No -Bioengineered Tissue No -Bleeding Controlled with Pressure -Treatment Response Procedure Tolerated Well -Offloading No -Debridement - Subq, 1st 20sq cm Yes Pain Scale: 0-10 Numeric Is Patient Pain Free? Yes - Nurse 3 - General Ulcer D/C NN Start: 04/02/24 10:19 Freq: Status: Active Protocol: Activity Type Activity Date Activity User E-sign Co-sign Detail Recorded Client Recorded Date Recorded By Document 07/15/23 10:55 CP Desktop 07/15/23 10:58 CP Document 07/29/23 11:48 RB Desktop 07/29/23 11:50 RB 07/15/23 07/29/23 10:55 11:48 Wound Care Center Nurse 3 4. R ankle lateral -Ulcer Cleansing Rinsed/ Rinsed/ Irrigated with Irrigated with Saline Saline -Foul Odor after Cleansing No -Primary Dressing Applied C Hydrogel ($) -Other Dressing hydrogel, hydrogel/ adaptic saline moistened gauze -Primary Dressing Covered/Secured with Dry Gauze & Dry Gauze & Roll Gauze, Roll Gauze, Secured with Secured with Tape Tape Right -Tubular Bandage Single Layer -Size of Tubigrip Used Size D -Size D ($) 1 Treatment Response Procedure Procedure Tolerated Well Tolerated Well Pain Scale: 0-10 Numeric Is Patient Pain Free? Yes Yes Teaching: Wound Center Dressing Your Wound -Person Taught Patient -Teaching Method Discussion, Demonstration -Response to teaching Verbalize understanding WC - Visit Discharge Discharge Condition Stable Stable Ambulatory Status Ambulatory, Ambulatory, Walker Walker Transportation Private Auto Private Auto Medication Reconcilliation completed & No No provided to patient/care provider Clinical Summary of Care Provided Yes Yes Assessment/Plan Assessment/Plan (1) Other specified peripheral vascular diseases: CODE(S): I73.89 - Other specified peripheral vascular diseases PLAN: Exam performed Previous radiographs reviewed, no concern for osteomyelitis. vascular surgery planning for venous procedure 08/07/23 Recommend compression elevation and exercise for edema management. Right lateral ankle wound was debrided excisionally down to including level of subcutaneous tissue of all nonviable tissue with pickups and #15 blade without incident. Hemostasis obtained with light compression. Patient tolerated procedure well. Topical anesthesia used. Pre and postdebridement measurements documented nursing notes. no epifix graft today continue santyl to be used daily with DSD/tubigrip Consider additional lab work to rule out anemia or immune compromise if there are any delays in healing. Follow-up in 1 week. (2) Non-pressure chronic ulcer of right ankle with fat layer exposed: CODE(S): L97.312 - Non-pressure chronic ulcer of right ankle with fat layer exposed
[2023-08-12 10:02] VITALS: BP 104/55; PULSE 66; RESP 20; TEMP 36.3
== END 2023-08-12 23:59 | disposition home or self-care (01) ==
LOC: WC 10:15
PROVIDERS: PCP Internal Medicine; Referring Provider Dermatology; Visit Provider Podiatrist
DX: I73.89 Other specified peripheral vascular diseases (principal); L97.312 Non-pressure chronic ulcer of right ankle with fat layer exposed; E78.5 Hyperlipidemia, unspecified; R60.0 Localized edema; I87.2 Venous insufficiency (chronic) (peripheral)
CPT/HCPCS: 11042; 15271; 29581; Q4186

== ENCOUNTER 2023-08-14 09:44 | Inpatient (IN) | payer MEDICARE, OTHER, SELFPAY ==
[2023-08-14] VITALS (8 sets, daily range): BP systolic 152–165; BP diastolic 57–74; PULSE 59–89; RESP 15–20; TEMP 36.3–36.7; O2SAT 95–100; BMI 26.0; BMI 25.5
--- NOTE | 2023-08-14 10:24 | ED.VIS.FALL ---
HPI HPI - Fall History of Present Illness Chief Complaint: Fall Detail of Chief Complaint: With head injury. On Coumadin. Informant: patient and family Occured/Mechanism Occurred: Today Mechanism/Context: Yes same level fall Usually ambulates: Without assistance Pain/Injury Pain Location: head and neck Current Severity: Mild Maximum Severity: Mild Associated Symptoms Associated Symptoms: Positive for Weakness; Negative for Parasthesias, Loss of function, Inability to ambulate, Loss of consciousness or Amnesia Narrative Narrative: 87-year-old female history of CAD, prior CABG, diabetes on Coumadin. Lost her balance and fell today at home. Striking the back of her head. Complaining of a mild headache and neck pain. No LOC. Denies any dysuria or fever. No nausea, vomiting or diarrhea. No recent admission. No melena. States she has had some weakness. It has been intermittent. Prior similar symptoms: No Recent Illness/Hospitalization: No PFSH PFSH Medical History Abnormal urine finding Atherosclerosis of coronary artery bypass graft without angina pectoris Atherosclerotic cardiovascular disease Atherosclerotic heart disease of [place] coronary artery without angina pectoris Bronchitis Chronic diastolic (congestive) heart failure Chronic lymphoid leukemia Complete heart block COVID-19 DM (diabetes mellitus), type 2 with peripheral vascular complications Essential (primary) hypertension Gout HLD (hyperlipidemia) Hypogammaglobulinemia, acquired Left bundle branch block (LBBB) Macular degeneration Mitral valve annular calcification Nonrheumatic mitral (valve) insufficiency Nonsustained ventricular tachycardia Obstructive hypertrophic cardiomyopathy Other specified transient cerebral ischemias Peripheral edema Persistent atrial fibrillation Proteinuria Skin tear of left upper extremity Uncontrolled hypertension URI (upper respiratory infection) Urinary frequency Home Medications cholecalciferol (vitamin D3) 125 mcg (5,000 unit) capsule 1 tab PO DAILY 05/18/15 [History Last Taken 08/07/23] duloxetine 60 mg capsule,delayed release 60 mg PO DAILY 04/11/16 [History Last Taken 08/07/23] gabapentin 300 mg capsule 300 mg PO TID 10/28/16 [History Last Taken 08/07/23] simvastatin 40 mg tablet 40 mg PO QHS 10/28/16 [History Last Taken Unknown] arginine (L-arginine) 500 mg tablet 500 mg PO BID 10/29/17 [History Last Taken 08/07/23] cyanocobalamin (vitamin B-12) 500 mcg tablet 1,000 mcg PO DAILY 11/26/17 [History Last Taken Unknown] levothyroxine 50 mcg tablet 50 mcg PO DAILY 12/24/17 [History Last Taken 08/07/23] vit C 250 mg-vit E 90 mg-zinc 40 mg-copper 1 [id number] capsule (PreserVision AREDS-2) 1 tab PO BID 01/24/21 [History Last Taken Unknown] acyclovir 800 mg tablet 800 mg PO BID 05/16/21 [History Last Taken 08/07/23] metoprolol tartrate 50 mg tablet 50 mg PO BID #1 TAB 10/22/22 [Rx Last Taken 08/07/23] duloxetine 30 mg capsule,delayed release 30 mg PO QHS 11/01/22 [History Last Taken Unknown] furosemide 40 mg tablet (Lasix) 40 mg PO BID #180 tabs 01/30/23 [Rx Last Taken Unknown] isosorbide mononitrate 60 mg tablet,extended release 24 hr 60 mg PO DAILY 30 days #30 tabs 05/09/23 [Rx Last Taken Unknown] sennosides 8.6 mg-docusate sodium 50 mg tablet (Stool Softener-Stimulant Laxative) 2 tab PO BID PRN PRN Constipation #0 tabs 05/09/23 [Rx Last Taken Unknown] warfarin 2 mg tablet 4 mg PO DAILY #30 tabs 05/09/23 [Rx Last Taken 08/07/23] aspirin 81 mg tablet,delayed release (Adult Aspirin Regimen) 81 mg PO DAILY 06/17/23 [History Last Taken Unknown] spironolactone 25 mg tablet 12.5 mg (1/2 x 25 mg) PO DAILY #45 tabs 07/03/23 [Rx Last Taken 08/07/23] collagenase clostridium histo. 250 unit/gram topical ointment (Santyl) 1 applic topical DAILY #90 grams 07/22/23 [Rx Last Taken Unknown] oxybutynin chloride 10 mg tablet,extended release 24 hr 10 mg PO DAILY 08/14/23 [History Last Taken Unknown] Allergy/AdvReac Type Severity Reaction Status Date / Time amoxicillin trihydrate AdvReac Severe Vomiting Verified 08/14/23 09:53 [From Augmentin] lidocaine AdvReac Severe Other Verified 08/14/23 09:53 Penicillins AdvReac Severe Vomiting Verified 08/14/23 09:53 potassium clavulanate AdvReac Severe Vomiting Verified 08/14/23 09:53 [From Augmentin] Family History Father , age 86 CAD (coronary artery disease) Sister Asthma Mother Valvular heart disease Surgical History H/O coronary artery bypass surgery (01/15/11) History of appendectomy History of cholecystectomy History of coronary artery stent placement (06/17/11) History of electrophysiologic study (01/21/11) History of hysterectomy History of mitral valve repair (01/15/11) History of tonsillectomy nerve ablation for pain management Presence of permanent cardiac pacemaker (12/21/21) Social History household members: family housing: house Smoking Status: Never smoker alcohol intake: never substance use type: does not use caffeine: Yes Type: coffee Number of servings: 2 what type of physical activity do you participate in: walking and weight training frequency: 5-6 times per week ROS ROS ED ROS Narrative Patient denies recent illness. Denies nausea vomiting diarrhea. Denies dysuria. Denies fever or chills. No cough. Review of Systems ROS Unobtainable: Denies due to encephalopathy Constitutional Constitutional ED: Denies chills or fever(s) Eyes Eyes: Denies blurry vision ENT ENT ED: Denies ear pain Cardiovascular Cardiovascular: Denies chest pain Respiratory/Chest Respiratory/Chest: Denies cough or dyspnea Gastrointestinal Gastrointestinal: Denies abdominal pain, diarrhea, nausea or vomiting Genitourinary Genitourinary ED: Denies dysuria or hematuria Musculoskeletal Musculoskeletal: Denies arthralgias Integumentary Denies Abrasions Neurologic Neurologic: Denies headache(s) or paresthesias Psychiatric Psychiatric: Denies anxiety or depression Endocrine Endocrinology: Denies polydipsia, polyphagia or polyuria Hematologic/Lymphatic Hematologic/Lymphatic: Denies easy bleeding, easy bruising or lymphadenopathy Allergic/Immunologic Allergic/Immunologic ED: Denies mouth swelling, tongue swelling or urticaria EXAM Physical Exam Narrative Exam Narrative: A 7-year-old female no acute distress sitting upright in bed. Vital signs are stable afebrile. HEENT exam pupils round reactive light. No facial droop. No facial trauma. Posterior left scalp there is a quarter sized area of the hematoma is tender to palpation. No laceration or bleeding. She has diffuse tenderness to her neck. Trachea midline. Lungs clear to auscultation bilaterally. Heart regular rate and rhythm rate about 90. 4/6 systolic ejection murmur. Const Vital Signs: 08/14/23 09:47 08/14/23 09:55 08/14/23 11:44 Temperature 97.3 F L Temperature Source Temporal Pulse Rate 89 60 Respiratory Rate 16 15 Respiratory Effort Normal Non-Labored Blood Pressure 152/68 H 165/66 H Blood Pressure Mean 96 99 Pulse Ox 97 95 Oxygen Delivery Method Room Air Room Air 08/14/23 13:07 Temperature Temperature Source Pulse Rate 60 Respiratory Rate 16 Respiratory Effort Blood Pressure 154/74 H Blood Pressure Mean 100 Pulse Ox 97 Oxygen Delivery Method Room Air Positive well nourished and well developed; Negative for obese, cachectic, contractures or unkempt General Appearance ED: well developed and NAD; Negative for unkempt, cachectic or contractures Nutritional Appearance: Negative for cachectic or obese HEENT Denies normocephalic trauma, contusion, hematoma and tenderness; Negative for atraumatic Eyes PERRL and EOMs intact bilaterally General Eye ED: Negative for pale conjunctiva or scleral icterus Neck full ROM and no lymphadenopathy General: Negative for tenderness Chest Wall inspection of chest normal and palpation of chest normal Chest: Negative for other Resp normal respiratory effort, no retractions and clear to auscultation bilaterally Effort and Inspection: Negative for pain with movement Auscultation: Negative for rales, rhonchi, wheezes, diminished lung sounds or other Cardio regular rate, regular rhythm, S1 normal heart sound and S2 normal heart sound; Negative for no murmurs Cardio Narrative: For her 6 systolic ejection murmur. GI non-tender, non-distended and no masses Inspection: Negative for abdominal distention Auscultation: normoactive bowel sounds Palpation: soft; Negative for guarding or rebound tenderness present Back/Spine no CVA tenderness General Back: Negative for CVA tenderness Cervical Spine: Negative for cervical spine tenderness Thoracic Spine / Upper Back: Negative for ROM limited Lumbar Spine / Lower Back: Negative for lumbar spinal tenderness Extremity Extremity Narrative: Moving all 4 extremities. Nontender. No shortening. No deformity. Neuro oriented x3, CN's II-XII intact bilaterally, moves all extremities and no focal motor deficits [place] Coma Scale: document GCS findings Spontaneous Obeys Commands Oriented 15 Sensorium / Orientation: alert, oriented to person, oriented to place and oriented to time Motor Exam: strength 5/5 throughout Psych mental status grossly normal and thought process normal Appearance: Negative for unkempt Attitude: No agitated Mood & Affect: Negative for depressed, anxious or tearful Skin General Skin Exam: Negative for other Lesions: no lesions Rashes: no rashes Trauma: Negative for abrasion or laceration MDM MDM MDM Narrative Medical decision making narrative: 87-year-old female on Coumadin fell and hit her head. Has a hematoma. She will get a CAT scan of her head neck due to the trauma, being on blood thinners and neck pain. Screening labs to be obtained for her generalized weakness. She denies any urinary symptoms. She will be given Tylenol for her headache. Repeat exam at 1 PM patient doing well. Sitting upright in bed. Family at bedside. No change on exam. Hematoma to posterior scalp has not gotten any larger. I went over all of her test results with her including her CAT scans and her x-ray and labs. We will attempt a walker her sister is concerned if she has trouble walking I explained to him if she cannot walk well we will admit her to the hospital. Patient also knows to hold her next dose of Coumadin. Repeat exam patient is resting comfortably in bed. Nurses tried a walker and her legs buckled just getting out of bed. I spoke to the hospitalist she will be admitted for close head injury. History & Record Review Discussion w/independent historian: Patient and Family Lab Data Attestation: I reviewed the patient's lab results. Lab results narrative: CBC shows white count 8.2. H&H of 14.6 and 45. Platelets 208. PT/INR of 31 and 3.0. Consistent with her being on warfarin. Electrolytes unremarkable gap 2. BUN of 32 creatinine 1.44 which is her baseline actually better than her normal renal function. Glucose 161. CT of the brain shows chronic changes. No bleed. CT of the C-spine shows chronic changes no fracture. Labs: Laboratory Results - last 24 hr 08/14/23 10:50 WBC 8.2 RBC 4.84 Hgb 14.6 Hct 45.6 MCV 94.2 MCH 30.2 MCHC 32.0 RDW Std Deviation 46.7 H RDW Coeff of Patrice 13.6 Plt Count 208 MPV 10.2 Immature Gran % (Auto) 0.500 Neut % (Auto) 78.5 H Lymph % (Auto) 11.3 L [place] % (Auto) 9.0 Eos % (Auto) 0.6 Baso % (Auto) 0.1 Absolute Neuts (auto) 6.4 Absolute Lymphs (auto) 0.92 Nucleated RBC % 0 PT 31.1 H INR 3.0 Sodium 139 Potassium 4.5 Chloride 107 Carbon Dioxide 30.0 Anion Gap 2 L BUN 32 H Creatinine 1.44 H Estim Creat Clear Calc 29.19 Est GFR (MDRD) Af Amer 44 L Est GFR (MDRD) Non-Af 37 L BUN/Creatinine Ratio 22.2 H Glucose 161 H Calcium 10.0 Radiography Chest X-Ray - ED: 1 View, Read by ED Physician, Read by Radiologist, Normal, Heart, Lungs, Mediastinum, Bony Structures, No Acute Disease and Chronic Changes Diagnostic Testing: Clinical Impression(s) from Imaging Studies Brain CT 08/14/23 11:23 IMPRESSION: Findings suggestive of normal pressure hydrocephalus. Electronically Signed: Denis Casillas MD at 11:45 EDT , Cervical Spine CT 08/14/23 11:23 IMPRESSION: Multilevel degenerative changes, as described above. Stable examination. Electronically Signed: Denis Casillas MD at 11:47 EDT , Chest X-Ray 08/14/23 11:25 IMPRESSION: Increased markings at the left lung base suggestive of a left basilar atelectasis. Electronically Signed: Denis Casillas MD at 11:50 EDT , Chest x-ray, portable, single view interpreted both by myself and radiologist shows no acute abnormality. Chronic changes. Left-sided pacemaker. Atelectasis left lung base. No acute process. Discharge Plan Triage Chief Complaint: Fall ED Provider: Ian Shaw Dx/Rx/DC Orders Clinical Impression: Fall, Chronic anticoagulation, Closed head injury, Hematoma of frontal scalp, Acute cervical myofascial strain, History of diabetes mellitus Prescriptions: No Action PreserVision AREDS-2 250-90-40-1 mg capsule 1 tab PO BID acyclovir 800 mg tablet 800 mg PO BID cholecalciferol (vitamin D3) 5,000 UNIT capsule 1 tab PO DAILY duloxetine 60 MG capsule,delayed release(DR/EC) 60 mg PO DAILY gabapentin 300 MG capsule 300 mg PO TID simvastatin 40 MG tablet 40 mg PO QHS arginine (L-arginine) 500 MG tablet 500 mg PO BID Hold Instructions: Ordered cyanocobalamin (vitamin B-12) 500 MCG tablet 1,000 mcg PO DAILY levothyroxine 50 MCG tablet 50 mcg PO DAILY Patient Comments: luis 2 on Friday duloxetine 30 mg capsule,delayed release(DR/EC) 30 mg PO QHS Patient Comments: takes @ HS isosorbide mononitrate 60 mg Tablet Extended Release 24 Hr 60 mg PO DAILY 30 Days Qty: 30 2RF sennosides-docusate sodium [Stool Softener-Stimulant Laxat] 8.6-50 mg Tablet 2 tab PO BID PRN PRN (Reason: Constipation) Qty: 0 0RF warfarin 2 mg tablet 4 mg PO DAILY Qty: 30 0RF Protocol: Dose Management Condition: Friday Dose/Route: 4 mg Instruction: 2 x 2 mg tablets Condition: Friday Dose/Route: 4 mg Instruction: 2 x 2 mg tablets Condition: Friday Dose/Route: 4 mg Instruction: 2 x 2 mg tablets Condition: Friday Dose/Route: 4 mg Instruction: 2 x 2 mg tablets Condition: Dose/Route: 0 mg Instruction: 0 tablets Condition: Friday Dose/Route: 0 mg Instruction: 0 tablets Condition: Friday Dose/Route: 4 mg Instruction: 2 x 2 mg tablets Protocol Text: Adjustment Start Date: 08/07/23 INR Value: 4.0 INR Date: 08/07/23 Recheck Date: 08/14/23 Patient Comments: was told to hold till sat for inr 3.0 Rx Instructions: 4 mg orally FRIDAY-Friday and (6mg) ON Friday and Friday. Santyl 250 unit/gram ointment 1 applic topical DAILY Qty: 90 0RF aspirin [Adult Aspirin Regimen] 81 mg tablet,delayed release (DR/EC) 81 mg PO DAILY oxybutynin chloride 10 mg tablet extended release 24hr 10 mg PO DAILY metoprolol tartrate 50 mg tablet 50 mg PO BID Qty: 1 0RF furosemide [Lasix] 40 mg tablet 40 mg PO BID Qty: 180 3RF spironolactone 25 mg tablet 12.5 mg PO DAILY Qty: 45 3RF Primary Care Provider: Susie Dang Referrals: Susie Dang DO [Primary Care Provider] -
[2023-08-14 10:58] LABS: Absolute Lymphocyte Count 0.92 X10^3/uL (0.83-4.51); Absolute Neutrophil Count 6.4 X10^3/uL (2.0-7.7); Basophil# 0.01 X10^3/uL; Basophil% 0.1 % (0-1); Eosinophil# 0.05 X10^3/uL; Eosinophils% 0.6 % (0-5); Hematocrit 45.6 % (37-47); Hemoglobin 14.6 g/dL (12.0-15.0); Lymphocyte # 0.92 X10^3/ul (0.83-4.51); Lymphocyte % 11.3 % (19-41); Mean Corpuscular Hgb 30.2 pg (27.0-32.0); Mean Corpuscular Volume 94.2 fL (81-99); Mean Platelet Vol. 10.2 fl (6.2-12.0); Monocyte# 0.73 X10^3/uL; NRBC Flagged by Analyzer 0 % (0-5); Neutrophil % 78.5 % (47-70); Platelet Count 208 K/mm3 (150-450); RBC Distribution Width CV 13.6 % (11.6-14.6); RBC Distribution Width SD 46.7 fl (35.1-43.9); Red Blood Count 4.84 M/mm3 (4.2-5.4); White Blood Count 8.2 K/mm3 (4.4-11.0)
[2023-08-14] MEDS: Acetaminophen 500 MG Tablet 1000 MG PO ×2 (11:01→21:51)
[2023-08-14 11:10] LABS: Anion Gap 2 (5-15); BUN 32 mg/dL (7-18); BUN/Creat Ratio 22.2 RATIO (10-20); Chloride 107 mmol/L (98-107); Creatinine, Serum 1.44 mg/dL (0.55-1.02); EST Glomerular Filtration Rate 37 mL/min (>60); Est Glom Filt Rate - Afr Amer 44 mL/min (>60); Estimated Creatinine Clearance 29.19 ml/min; Glucose 161 mg/dL (74-106); Potassium 4.5 mmol/L (3.5-5.1); Sodium Level 139 mmol/L (136-145)
[2023-08-14 11:15] LABS: Prothrombin Time (Protime)PT. 31.1 SECONDS (11.7-14.9)
--- NOTE | 2023-08-14 11:23 | CT_ITS ---
STUDY: CT BRAIN WITHOUT CONTRAST REASON FOR EXAM: Female, 87 years old. Head trauma RADIATION DOSAGE (If Supplied By Facility): CTDIvol = ( 44.99 ) mGy, DLP = ( 863.60 ) mGycm TECHNIQUE: Transaxial CT imaging of the brain was performed without administration of intravenous contrast material. Individualized dose optimization techniques were used for this CT. COMPARISON: Comparison is made with prior study dated May 07, 2023. FINDINGS: Normal soft tissue structures. Normal calvarium. There is disproportionate enlargement of the lateral and third ventricles, as compared to the extra-axial spaces. The findings suggest normal pressure hydrocephalus (NPH). There are areas of decreased attenuation within the white matter tracts of the supratentorial brain, consistent with microvascular disease changes. Stable tiny old lacunar infarct in the right basal ganglion. Normal brainstem. Normal cerebellum. There is no intracranial hemorrhage. There are no findings of an acute ischemic infarction. Atherosclerotic plaque formation of the vertebral arteries and cavernous portions of the internal carotid arteries bilaterally. Normal visualized paranasal sinuses. CT/Brain/Head without Contrast IMPRESSION: Findings suggestive of normal pressure hydrocephalus. Electronically Signed: Denis Casillas MD at 11:45 EDT ,
--- NOTE | 2023-08-14 11:23 | CT_ITS ---
STUDY: CT CERVICAL SPINE WITHOUT CONTRAST REASON FOR EXAM: Female, 87 years old. Fall and neck pain RADIATION DOSAGE (If Supplied By Facility): CTDIvol = ( 22.47 ) mGy, DLP = ( 500.90 ) mGycm TECHNIQUE: High resolution transaxial imaging was performed without contrast material. Sagittal and coronal images were reconstructed. Individualized dose optimization techniques were used for this CT. COMPARISON: Comparison is made with prior study dated May 07, 2023. FINDINGS: Normal craniovertebral junction. There are degenerative changes of the anterior atlantoaxial articulation. Normal odontoid process. There is straightening of the normal cervical lordosis. Normal vertebral bodies and posterior osseous elements. C2-3: Normal endplates. Normal disc height and morphology. Normal central canal and intervertebral neuroforamina. C3-4: Moderate degree of disc space narrowing. Uncovertebral arthrosis worse on the right side causing a mild degree of right lateral neural foraminal stenosis C4-5: Moderate degree of broad disc space narrowing. Anterior spondylosis. Uncovertebral arthrosis. Mild degree of bilateral neural foraminal stenosis more prominent on the right side. C5-6: Marked degree of disc space narrowing with the spondylosis. Uncovertebral arthrosis. No significant stenosis seen. C6-7: Normal endplates. Normal disc height and morphology. Normal central canal and intervertebral neuroforamina. C7-T1: Normal endplates. Normal disc height and morphology. Normal central canal and intervertebral neuroforamina. Atherosclerotic calcification of the carotid bifurcations. CT/Spine Cervical without Contras IMPRESSION: Multilevel degenerative changes, as described above. Stable examination. Electronically Signed: Denis Casillas MD at 11:47 EDT ,
--- NOTE | 2023-08-14 11:25 | RAD_ITS ---
STUDY: X-RAY CHEST REASON FOR EXAM: Female, 87 years old. Weakness TECHNIQUE: Single AP portable view of the chest. COMPARISON: Comparison is made with prior study dated May 07, 2023. FINDINGS: EKG electrodes are seen. Elevation of the left hemidiaphragm with increased markings at the left lung base suggestive of atelectasis. There is no demonstrated pleural abnormality. Sternal cerclage wires and vascular clips are present from a prior sternotomy and coronary artery bypass graft procedure (CABG). A left-sided dual-chamber pacemaker is seen. Normal mediastinum and miguel. Normal visualized pulmonary arteries. There is atherosclerotic calcification of the aortic arch with tortuosity. Normal visualized thoracic spine. There is degenerative osteoarthritis of the bilateral shoulders. There is no demonstrated abnormality of the visualized soft tissue structures of the upper abdomen. RAD/Chest 1 View (Portable) IMPRESSION: Increased markings at the left lung base suggestive of a left basilar atelectasis. Electronically Signed: Denis Casillas MD at 11:50 EDT ,
--- NOTE | 2023-08-14 13:43 | EKG12_ITS ---
Test Reason : PRE OP Blood Pressure : / mmHG Vent. Rate : 060 BPM Atrial Rate : 060 BPM P-R Int : 000 ms QRS Dur : 182 ms QT Int : 546 ms P-R-T Axes : 000 -68 106 degrees QTc Int : 546 ms Ventricular-paced rhythm Abnormal ECG Confirmed by ZEE DUMONT, HAILEE ([id number]), scientific editor JES BURROUGHS ([id number]) on 08/15/2023 10:46:46 AM Referred By: RITO Confirmed By:HAILEE KOCH MD
--- NOTE | 2023-08-14 14:05 | HP.PCM.HOS_ITS ---
HPI - General General Date of Admission: 08/14/23 Date of Service: 08/14/23 Chief Complaint: Fall with swelling. No LOC. HPI Narrative BEVERLY GARICA, is a 87 F with multiple comorbidities on medications including warfarin for chronic A-fib came to ED after she had a fall. The patient is accompanied by her daughter and grand nephew. Patient is awake and gives history. She said she was walking, felt her legs weak could not hold up and then fell on the back of the head. Mild headache and neck pain but no LOC. She felt dizziness after the fall but not before fall. No nystagmus. As per daughter accompanying the patient, she was little bit weak yesterday also but was able to walk with a walker and do her activities of daily living but in the morning she was very weak. Denies other acute recent symptoms including fever, URI, dysuria/burning micturition, abdominal pain, chest pain pressure tightness, shortness of breath, palpitation or other change. In ED, she was not able to stand up or walk therefore admitted for further evaluation. [facility] Medical History Abnormal urine finding Atherosclerosis of coronary artery bypass graft without angina pectoris Atherosclerotic cardiovascular disease Atherosclerotic heart disease of [place] coronary artery without angina pectoris Bronchitis Chronic diastolic (congestive) heart failure Chronic lymphoid leukemia Complete heart block COVID-19 DM (diabetes mellitus), type 2 with peripheral vascular complications Essential (primary) hypertension Gout HLD (hyperlipidemia) Hypogammaglobulinemia, acquired Left bundle branch block (LBBB) Macular degeneration Mitral valve annular calcification Nonrheumatic mitral (valve) insufficiency Nonsustained ventricular tachycardia Obstructive hypertrophic cardiomyopathy Other specified transient cerebral ischemias Peripheral edema Persistent atrial fibrillation Proteinuria Skin tear of left upper extremity Uncontrolled hypertension URI (upper respiratory infection) Urinary frequency Home Medications cholecalciferol (vitamin D3) 125 mcg (5,000 unit) capsule 1 tab PO DAILY 05/18 [History Last Taken 08/07/23] duloxetine 60 mg capsule,delayed release 60 mg PO DAILY 04/11/16 [History Last Taken 08/07/23] gabapentin 300 mg capsule 300 mg PO TID 10/28/16 [History Last Taken 08/07/23] simvastatin 40 mg tablet 40 mg PO QHS 10/28/16 [History Last Taken Unknown] arginine (L-arginine) 500 mg tablet 500 mg PO BID 10/29/17 [History Last Taken 08/07/23] cyanocobalamin (vitamin B-12) 500 mcg tablet 1,000 mcg PO DAILY 11/26/17 [History Last Taken Unknown] levothyroxine 50 mcg tablet 50 mcg PO DAILY 12/24/17 [History Last Taken 08/07/23] vit C 250 mg-vit E 90 mg-zinc 40 mg-copper 1 [id number] capsule (PreserVision AREDS-2) 1 tab PO BID 01/24/21 [History Last Taken Unknown] acyclovir 800 mg tablet 800 mg PO BID 05/16/21 [History Last Taken 08/07/23] metoprolol tartrate 50 mg tablet 50 mg PO BID #1 TAB 10/22/22 [Rx Last Taken 08/07/23] duloxetine 30 mg capsule,delayed release 30 mg PO QHS 11/01/22 [History Last Taken Unknown] furosemide 40 mg tablet (Lasix) 40 mg PO BID #180 tabs 01/30/23 [Rx Last Taken Unknown] isosorbide mononitrate 60 mg tablet,extended release 24 hr 60 mg PO DAILY 30 days #30 tabs 05/09/23 [Rx Last Taken Unknown] sennosides 8.6 mg-docusate sodium 50 mg tablet (Stool Softener-Stimulant Laxative) 2 tab PO BID PRN PRN Constipation #0 tabs 05/09/23 [Rx Last Taken Unknown] warfarin 2 mg tablet 4 mg PO DAILY #30 tabs 05/09/23 [Rx Last Taken 08/07/23] aspirin 81 mg tablet,delayed release (Adult Aspirin Regimen) 81 mg PO DAILY 06/17/23 [History Last Taken Unknown] spironolactone 25 mg tablet 12.5 mg (1/2 x 25 mg) PO DAILY #45 tabs 07/03/23 [Rx Last Taken 08/07/23] collagenase clostridium histo. 250 unit/gram topical ointment (Santyl) 1 applic topical DAILY #90 grams 07/22/23 [Rx Last Taken Unknown] oxybutynin chloride 10 mg tablet,extended release 24 hr 10 mg PO DAILY 08/14/23 [History Last Taken Unknown] Allergy/AdvReac Type Severity Reaction Status Date / Time amoxicillin trihydrate AdvReac Severe Vomiting Verified 08/14/23 09:53 [From Augmentin] lidocaine AdvReac Severe Other Verified 08/14/23 09:53 Penicillins AdvReac Severe Vomiting Verified 08/14/23 09:53 potassium clavulanate AdvReac Severe Vomiting Verified 08/14/23 09:53 [From Augmentin] Family History Father , age 86 CAD (coronary artery disease) Sister Asthma Mother Valvular heart disease Surgical History H/O coronary artery bypass surgery (01/15/11) History of appendectomy History of cholecystectomy History of coronary artery stent placement (06/17/11) History of electrophysiologic study (01/21/11) History of hysterectomy History of mitral valve repair (01/15/11) History of tonsillectomy nerve ablation for pain management Presence of permanent cardiac pacemaker (12/21/21) Social History household members: family housing: house Smoking Status: Never smoker alcohol intake: never substance use type: does not use caffeine: Yes Type: coffee Number of servings: 2 what type of physical activity do you participate in: walking and weight training frequency: 5-6 times per week ROS ROS Narrative ROS was obtained by the patient and her family near the bedside. Constitutional: Reports fatigue and weakness and generalized weakness, recent onset. No fever. HEENT: Reports systems reviewed and no addt'l complaints, except as documented Respiratory/Chest: No acute shortness of breath or respiratory distress or wheezing. CVS: Pacemaker. CABG. No chest pain or tightness. Gastrointestinal: Denies coffee ground emesis, hematemesis or vomiting Genitourinary: Denies burning urination or new urinary tract symptoms Musculoskeletal: Denies acute joint pain or limited range of motion. Fall and headache/mild neck pain after that. Neurologic: Denies seizure-like symptoms. skin: No ulcer. No rash Endocrinology: Reports systems reviewed and no addt'l complaints, except as documented Hematologic/Lymphatic: Reports systems reviewed and no addt'l complaints, except as documented Rest 14 ROS are negative except as mentioned in HPI Vital Signs Vital Signs Vital Signs: 08/14/23 09:47 08/14/23 09:55 08/14/23 11:44 Temperature 97.3 F L Temperature Source Temporal Pulse Rate 89 60 Respiratory Rate 16 15 Respiratory Effort Normal Non-Labored Blood Pressure 152/68 H 165/66 H Blood Pressure Mean 96 99 Pulse Ox 97 95 Oxygen Delivery Method Room Air Room Air 08/14/23 13:07 08/14/23 13:49 Temperature Temperature Source Pulse Rate 60 60 Respiratory Rate 16 16 Respiratory Effort Blood Pressure 154/74 H 154/74 H Blood Pressure Mean 100 100 Pulse Ox 97 97 Oxygen Delivery Method Room Air Weight Weight: 166 lb 8 oz Body Mass Index (BMI) 26.0 Physical Exam Narrative General: Alert, Oriented x3, Cooperative HEENT: Atraumatic, PERRLA, EOMI, Normocephalic Oral: Oral mucosa dry. No Gingival or Mucosal Lesions/ Ulcerations Neck: Supple, No JVD, Negative Carotid Bruits Chest wall/Lungs: Air entry diminished in bilateral lung bases. No crepitation/rhonchi Cardiovascular: Paced rhythm, systolic murmur present over LLSB. Status post triple-vessel CABG status post myectomy Abdomen: Bowel Sounds Present, Soft, Non Tender, Non-Distended : No dysuria. No renal angle tenderness. No suprapubic tenderness. Extremities: Right lower leg below knee under dressing after ulcer surgery. No edema Skin: contusion and mild hematoma but no laceration on the left parieto- occipital region. Musculoskeletal: Muscle strength 3/5 at RLE and left 4/5. No Tenderness to Palpation of Joints or Extremities Neurological: Cranial nerves II-XII grossly intact, DTR 2+/4. No acute focal neurological deficit. Psych/Mental Status: Flat affect Results Lab / Micro Data 08/14/23 10:50 08/14/23 10:50 Labs: Laboratory Results - last 24 hr 08/14/23 10:50: WBC 8.2, RBC 4.84, Hgb 14.6, Hct 45.6, MCV 94.2, MCH 30.2, MCHC 32.0, RDW Std Deviation 46.7 H, RDW Coeff of Patrice 13.6, Plt Count 208, MPV 10.2, Immature Gran % (Auto) 0.500, Neut % (Auto) 78.5 H, Lymph % (Auto) 11.3 L, [place] % (Auto) 9.0, Eos % (Auto) 0.6, Baso % (Auto) 0.1, Absolute Neuts (auto) 6.4, Absolute Lymphs (auto) 0.92, Nucleated RBC % 0, PT 31.1 H, INR 3.0, Sodium 139, Potassium 4.5, Chloride 107, Carbon Dioxide 30.0, Anion Gap 2 L, BUN 32 H, Creatinine 1.44 H, Estim Creat Clear Calc 29.19, Est GFR (MDRD) Af Amer 44 L, Est GFR (MDRD) Non-Af 37 L, BUN/Creatinine Ratio 22.2 H, Glucose 161 H, Calcium 10.0 Imaging Radiology Impression Brain CT 08/14/23 11:23 IMPRESSION: Findings suggestive of normal pressure hydrocephalus. Electronically Signed: Denis Casillas MD at 11:45 EDT , Cervical Spine CT 08/14/23 11:23 IMPRESSION: Multilevel degenerative changes, as described above. Stable examination. Electronically Signed: Denis Casillas MD at 11:47 EDT , Chest X-Ray 08/14/23 11:25 IMPRESSION: Increased markings at the left lung base suggestive of a left basilar atelectasis. Electronically Signed: Denis Casillas MD at 11:50 EDT , Assessment & Plan Assessment/Plan (1) Closed head injury: (2) Debility: PLAN: Plan This is a 87-year-old female being admitted after fall with generalized weakness and could not stand up or walk. After baseline she can walk on the walker. 1. Acute debility due to generalized weakness mainly lower extremities, inability to stand up/compromised ADL after fall: Patient is being admitted to [facility] floor. She had contusion and mild hematoma but no laceration on the left parieto-occipital region. PT and OT and case manage Consult ordered. CT h ead without contrast initially reviewed shows features of NPH and chronic microvascular disease. 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 Atherosclerotic plaque formation of vertebral arteries and cavernous internal carotid. Cervical spine CT shows multilevel degenerative changes but no acute features. Chest x- ray shows increased markings left lung base suggestive of left basilar atelectasis. 2. Fall with mild contusion/hematoma but no open laceration after fall with dizziness: Patient was last admitted in April 2023 for generalized weakness, fall and significant debility. As described above. 3. Ulcer of right lower leg with chronic venous insufficiency: Patient had chemical ablation of right below-knee GSV and small saphenous vein by Dr. Luke Bright on 08/07/2023. Wound care consult ordered. 4. Chronic A-fib: Patient was last seen by Dr. Daryl Huitron in May 2023. At that time aspirin was suggested to be discontinue but are still on patient medication therefore discontinued.Twelve-lead EKG shows ventricular paced rhythm at 60 bpm, QTc 546 prolonged, expected after pacemaker. INR is 3.0 therefore we will hold warfarin. 5. Chronic atherosclerotic heart disease status post triple-vessel CABG: Home medications continued. 6. Obstructive hypertrophic cardiomyopathy s/p septal myomectomy on 01/25/2011. Patient did not have shortness of breath on exertion/dyspnea on exertion PND or orthopnea. 7. Complete heart block status post permanent pacemaker, in January 2011. Generator change in December 2021. Last pacer check 03/03/2021 8. Chronic HFpEF valvular heart disease: Status post chart reported history of MV repair, most recent echo in May 07 shows EF 65%, mild MR trivial aortic valve insufficiency. Left atrium severely enlarged. Patient on furosemide 40 mg twice daily and spironolactone 12.5 mg daily. Held today and evaluate may have to dig him tomorrow. Currently patient is dehydrated therefore IV fluid started 9. Diabetes mellitus type II with chronic neuropathy: Accu-Chek before meals and at bedtime insulin coverage Humalog sliding scale. Glucose 161 controlled. Patient on duloxetine continued. Gabapentin held because of dizziness. 10. CLL: Most recent oncology evaluation in 04/16/2023 with history of follow-up for CLL and hypogammaglobulinemia diagnosed in 1990, follows Dr. Gaffney. 7. CAD: Status post CABG x 3 (BARBER to LAD, SVG to RCA, SVG to OM and septal myomectomy 01/15/2011) and PCI: Continue statin therapy, metoprolol, not on CHANDLER inhibitor/ARB. 8. CKD stage IV: BUNs/creatinine 32/1.44. He is [place] creatinine is around 1.4 therefore not baseline. 9. History of TIA: Not on aspirin. As mentioned above 10. Anxiety and depression: l continue patient home duloxetine regimen. 11. Hypertension: BP slightly elevated systolic 154 but acceptable for 87 -year-old elderly patient. Continue home regimen including spironolactone, metoprolol, Lasix, PRN hydralazine. 12. Hyperlipidemia: Continue home statin regimen. Her last lipid profile in April 2023 was in normal limit. 13. Hypothyroidism: We will continue patient home levothyroxine regimen. D prophylaxis: Patient on warfarin and INR is 3.0 supratherapeutic therefore monitor INR daily Living will/advanced directive/end of life care: Patient does have living will or advanced directive. Patient's niece is power of insurance defense attorney for health, present in the chart. After discussion of benefits/risks procedures involved with full code, DNR CC arrest and DNR CC, the patient, her daughter and grand niece all negative for DNR CC arrest with no intubation. Patient doesn't want artificial life support including intubation, tube feed, ventilator and/chest compression, central venous catheter, vasopressor and DC shock if needed Total time spent in [id number] encounter in discussion of advanced directive 17 minutes. Laboratory Results 08/14/23 10:50: WBC 8.2, RBC 4.84, Hgb 14.6, Hct 45.6, MCV 94.2, MCH 30.2, MCHC 32.0, RDW Std Deviation 46.7 H, RDW Coeff of Patrice 13.6, Plt Count 208, MPV 10.2, Immature Gran % (Auto) 0.500, Neut % (Auto) 78.5 H, Lymph % (Auto) 11.3 L, [place] % (Auto) 9.0, Eos % (Auto) 0.6, Baso % (Auto) 0.1, Absolute Neuts (auto) 6.4, Absolute Lymphs (auto) 0.92, Nucleated RBC % 0, PT 31.1 H, INR 3.0, Sodium 139, Potassium 4.5, Chloride 107, Carbon Dioxide 30.0, Anion Gap 2 L, BUN 32 H, Creatinine 1.44 H, Estim Creat Clear Calc 29.19, Est GFR (MDRD) Af Amer 44 L, Est GFR (MDRD) Non-Af 37 L, BUN/Creatinine Ratio 22.2 H, Glucose 161 H, Calcium 10.0 Clinical Impression(s) from Imaging Studies Brain CT 08/14/23 11:23 IMPRESSION: Findings suggestive of normal pressure hydrocephalus. Cervical Spine CT 08/14/23 11:23 IMPRESSION: Multilevel degenerative changes, as described above. Stable examination. Chest X-Ray 08/14/23 11:25 IMPRESSION: Increased markings at the left lung base suggestive of a left basilar atelectasis. Charges/Coding Visit Charges Inpatient E&M: 08048 Init Hosp L3 Procedures Hospitalists Procedures: 01682 Advncd Care Plan 30 Min
--- NOTE | 2023-08-14 15:13 | WOUNDNOTE ---
Was consulted on patient per Dr Simms. patient is followed at the wound healing center and had an EpiFix placed on 08/12/23. dressing is to remain in place for 1 week. PIERRE Smyth aware.
[2023-08-14 15:51] LABS: Magnesium 2.3 mg/dL (1.6-2.6); Phosphorus 3.6 mg/dL (2.5-4.9)
[2023-08-14] MEDS: Ensure Plus High Protein 120 ML LIQUID PO ×2 (16:13→21:56)
[2023-08-14] MEDS: 0.45% Normal Saline 1,000 ML 75 ML IV (16:13)
[2023-08-14] MEDS: 0.9% Saline Lock 10 ML Syringe IV (16:14)
[2023-08-14] MEDS: DULoxetine Hcl 30 MG Capsule PO (21:50)
[2023-08-14] MEDS: Multivitamin (Healthy Eyes) Capsule 1 CAP PO (21:50)
[2023-08-14] MEDS: Metoprolol Tartrate 50 MG Tablet PO (21:50)
[2023-08-14] MEDS: Atorvastatin Calcium 20 MG Tablet PO (21:50)
[2023-08-14] MEDS: Acyclovir 800 MG Tablet PO (21:51)
[2023-08-15] VITALS (8 sets, daily range): BP systolic 136–172; BP diastolic 52–76; PULSE 59–60; RESP 17–20; TEMP 36.4–36.5; O2SAT 94–100
[2023-08-15] MEDS: 0.9% Saline Lock 10 ML Syringe IV ×2 (04:27→21:18)
[2023-08-15] MEDS: Levothyroxine 50 MCG Tablet PO (04:30)
[2023-08-15] MEDS: Acetaminophen 500 MG Tablet 1000 MG PO ×3 (04:30→21:15)
[2023-08-15 07:10] LABS: Absolute Neutrophil Count 3.7 X10^3/uL (2.0-7.7); Eosinophil# 0.06 X10^3/uL; Eosinophils% 1.1 % (0-5); Hematocrit 39.9 % (37-47); Hemoglobin 12.9 g/dL (12.0-15.0); Lymphocyte % 21.4 % (19-41); Mean Corp Hgb Conc 32.3 g/dL (32-36); Mean Corpuscular Hgb 30.5 pg (27.0-32.0); Mean Corpuscular Volume 94.3 fL (81-99); Mean Platelet Vol. 10.5 fl (6.2-12.0); Monocyte# 0.64 X10^3/uL; Monocyte% 11.4 % (0-10); NRBC Flagged by Analyzer 0 % (0-5); Neutrophil # 3.68 X10^3/uL (2.7-7.7); Neutrophil % 65.7 % (47-70); Platelet Count 184 K/mm3 (150-450); RBC Distribution Width CV 13.4 % (11.6-14.6); RBC Distribution Width SD 45.8 fl (35.1-43.9); Red Blood Count 4.23 M/mm3 (4.2-5.4); White Blood Count 5.6 K/mm3 (4.4-11.0)
--- NOTE | 2023-08-15 07:12 | PN.HOSP_ITS ---
Reason for Visit Reason for Visit: Diagnoses Other malaise (08/14/23) Unspecified injury of head, initial encounter (08/14/23) Subjective Subjective Patient is an 87-year-old lady admitted progressive generalized weakness with falls Objective Data Objective Data Vital Signs: Vital Signs Temp Pulse Resp BP Pulse Ox O2 Del Method 97.5 F L 59 L 20 H 151/60 H 99 Room Air 08/15/23 04:26 08/15/23 04:26 08/15/23 04:26 08/15/23 04:26 08/15/23 04:26 08/15/23 04:26 Oxygen Delivery Method Room Air Weight: 73.936 kg Body Mass Index (BMI) 25.5 Intake & Output: Intake and Output for Last 24 Hours 08/13/23 08/14/23 08/15/23 23:59 23:59 23:59 Intake Total 1000 / 1000 Balance 1000 / 1000 Lab / Micro Data 08/15/23 05:21 08/14/23 10:50 Labs: Laboratory Results - last 24 hr 08/14/23 10:50: WBC 8.2, RBC 4.84, Hgb 14.6, Hct 45.6, MCV 94.2, MCH 30.2, MCHC 32.0, RDW Std Deviation 46.7 H, RDW Coeff of Patrice 13.6, Plt Count 208, MPV 10.2, Immature Gran % (Auto) 0.500, Neut % (Auto) 78.5 H, Lymph % (Auto) 11.3 L, [place] % (Auto) 9.0, Eos % (Auto) 0.6, Baso % (Auto) 0.1, Absolute Neuts (auto) 6.4, Absolute Lymphs (auto) 0.92, Nucleated RBC % 0, PT 31.1 H, INR 3.0, Sodium 139, Potassium 4.5, Chloride 107, Carbon Dioxide 30.0, Anion Gap 2 L, BUN 32 H, Creatinine 1.44 H, Estim Creat Clear Calc 29.19, Est GFR (MDRD) Af Amer 44 L, Est GFR (MDRD) Non-Af 37 L, BUN/Creatinine Ratio 22.2 H, Glucose 161 H, Calcium 10.0 08/14/23 15:21: Phosphorus 3.6, Magnesium 2.3 08/15/23 05:21: WBC 5.6, RBC 4.23, Hgb 12.9, Hct 39.9, MCV 94.3, MCH 30.5, MCHC 32.3, RDW Std Deviation 45.8 H, RDW Coeff of Patrice 13.4, Plt Count 184, MPV 10.5, Immature Gran % (Auto) 0.400, Neut % (Auto) 65.7, Lymph % (Auto) 21.4, [place] % (Auto) 11.4 H, Eos % (Auto) 1.1, Baso % (Auto) 0.0, Absolute Neuts (auto) 3.7, Absolute Lymphs (auto) 1.20, Nucleated RBC % 0 Radiography Diagnostic Testing: Radiology Impression Brain CT 08/14/23 11:23 IMPRESSION: Findings suggestive of normal pressure hydrocephalus. Electronically Signed: Denis Casillas MD at 11:45 EDT , Cervical Spine CT 08/14/23 11:23 IMPRESSION: Multilevel degenerative changes, as described above. Stable examination. Electronically Signed: Denis Casillas MD at 11:47 EDT , Chest X-Ray 08/14/23 11:25 IMPRESSION: Increased markings at the left lung base suggestive of a left basilar atelectasis. Electronically Signed: Denis Casillas MD at 11:50 EDT , Physical Exam Narrative GENERAL: cooperative HEENT: normocephalic bruise left occipitoparietal region EYES; Anicteric, Normal Conjunctiva NECK; supple, normal thyroid, RESPIRATORY: Diminished to auscultation CARDIOVASCULAR: Regular S1 S2, GI: soft, normoactive bowel sounds, : No Renal angle tenderness; EXTREMITIES: No edema, no clubbing, MUSCULOSKELETAL: no muscle wasting NEURO: Awake; no lateralizing signs. SKIN: Vesicular rash on anterior abdomen and intertrigo skin folds PSYCH; Flat affect Assessment & Plan Assessment/Plan (1) Closed head injury: (2) Debility: PLAN: Plan Patient is an 87-year-old lady admitted progressive generalized weakness with falls 1. Fall with closed head injury ? Imaging studies on admission did not show any evidence of intracranial abnormalities. She was however found to have features consistent with NPH. Consult placed to teleneuro 2. Suspected NPH ? Patient complains of gait abnormalities as well as being incontinent consult placed to teleneuro 3. Ulcer of right lower leg with chronic venous insufficiency Patient had chemical ablation of right below-knee GSV and small saphenous vein by Dr. Luke Foster on 08/07/2023. Wound care consult ordered. 4. Chronic A-fib ? Rate controlled on systemic anticoagulation with warfarin with a therapeutic INR of 3.0 5. Conduction system disorder (complete heart block) ? Status post pacemaker placement in January 2011 6. Coronary artery disease ? Previous CABG (BARBER to LAD, SVG to RCA, SVG to OM ) and PCI. Patient remains on guideline directed medical therapy 7. Obstructive hypertrophic cardiomyopathy - s/p septal myomectomy on 01/25/2011. Remained stable 8. Chronic congestive heart failure with preserved ejection fraction ? Echo obtained on 05/07/2023 demonstrated EF of 65% 9. Valvular heart disease -with history of mitral valve regurgitation status post repair 10. Diabetes mellitus type II -patient's oral hypoglycemics held. Placed on long acting insulin, Accu-Cheks a.c. and at bedtime and covered with sliding scale insulin 11 CLL ? Patient remains in remission followed by oncology as outpatient 12. Hypertension - Blood pressure controlled, home medications continued with dose adjustment as needed 13. Hypothyroidism - Patient is on levothyroxine home dose continued 14. Dyslipidemia -Patient is on statin therapy, continued at home dose 15. Physical deconditioning - Requested for PT OT eval and director of social services to assist with discharge planning 16. Intertrigo ? Patient started on nystatin powder 17. Suspected zoster infection on the trunk ? Patient remains on acyclovir 18. DVT prophylaxis ? On warfarin Time spent in the patient's overall evaluation,decision-making process, review of diagnostic data, adjustment of management, discussion with other providers, nursing nursing and ancillary staff involved in patient's care documentation, 52 . Minutes Charges/Coding Visit Charges Inpatient E&M: 45425 Subs Hosp L3
[2023-08-15 07:28] LABS: International Normalized Ratio 2.8; Prothrombin Time (Protime)PT. 29.5 SECONDS (11.7-14.9)
[2023-08-15] MEDS: Menthol/Lanolin/Calamine/Znox 113 GM Tube 1 APPLIC TOPICAL ×2 (08:22→21:16)
[2023-08-15] MEDS: Multivitamin (Healthy Eyes) Capsule 1 CAP PO ×2 (08:23→21:15)
[2023-08-15] MEDS: Tolterodine Tartrate 2 MG CAP.SA PO (08:23)
[2023-08-15] MEDS: DULoxetine Hcl 60 MG Capsule PO (08:23)
[2023-08-15] MEDS: Cholecalciferol (Vit D3) 125 MCG CAPSULE (5,000 UNITS) PO (08:23)
[2023-08-15] MEDS: Metoprolol Tartrate 50 MG Tablet PO ×2 (08:23→21:15)
[2023-08-15] MEDS: Acyclovir 800 MG Tablet PO ×2 (08:23→21:15)
[2023-08-15] MEDS: Isosorbide Mononitrate 60 MG Tablet PO (08:24)
[2023-08-15] MEDS: Nystatin Powder 15gm Bottle 1 APPLIC TOPICAL ×2 (08:24→21:16)
[2023-08-15] MEDS: Cyanocobalamin 500 MCG Tablet 1000 MCG PO (08:24)
[2023-08-15] MEDS: Ensure Plus High Protein 120 ML LIQUID PO ×3 (08:26→21:18)
--- NOTE | 2023-08-15 08:27 | WOUNDNOTE ---
Had talked with Dr Dee about patient this am. patient had started to cut the 3 layer wrap off of the right lower leg. orders received to remove the 3 layer wrap. to leave dressing in place. applied CHANDLER wrap. pt tolerated well. nursing aware of orders.
[2023-08-15 08:32] LABS: Anion Gap 10 (5-15); BUN 24 mg/dL (7-18); Calcium,Total 9.6 mg/dL (8.5-10.1); Chloride 107 mmol/L (98-107); Creatinine, Serum 1.09 mg/dL (0.55-1.02); EST Glomerular Filtration Rate 50 mL/min (>60); Est Glom Filt Rate - Afr Amer 61 mL/min (>60); Estimated Creatinine Clearance 38.19 ml/min; Glucose 133 mg/dL (74-106); Potassium 3.6 mmol/L (3.5-5.1); Sodium Level 139 mmol/L (136-145)
--- NOTE | 2023-08-15 09:45 | CASEMGMT ---
Addendum entered by Radha Cabrera 08/15/23 12:46: PIERRE VILLAGRAN into pt room, pt had therapy gabe today. Pt eating lunch. Pt states she feels she did so-so. Pt unsure if she feels she can return home in this condition but would like to see how she does tomorrow with therapy prior to deciding. Provided pt with a list of [facility] providers including quality and resource use data and consistent with the patient?s preferred geographic region, medical needs, and insurance network [facility] should this be needed. Original Note: PIERRE VILLAGRAN Assessment: Face to Face with pt for initial transition planning/care coordination assessment. PIERRE VILLAGRAN introduced self and role at [facility], pt voices understanding and consents to assessment. Pt is A&O x4 and answers all questions appropriately, although slow at this time. Care providers, pharmacy, and demographics verified/updated. Admitting Dx: fall, generalized weakness PCP:[place] Specialists:Tomy, cardio; Gulshan, onc; raymond Foster; pt unsure of names of other specialists Preferred [facility]acy: [facility] Insurance: [facility], [facility] Prescription Benefit: yes LNOK: Anamika Piper, sister; Jenny Venegas, niece Living Arrangements: Pt lives with great nephew in a single story home with 1 step to enter with a rail. Pt reports she is I in ADL's and her great nephew makes lunch and dinner; she makes her own breakfast. Her great nephew does laundry and gets groceries. Pt denies concerns at home. Transportation: Pt does not drive. She states she uses the [facility] van for medical appts. DME:shower chair, roni CARDOZO HHC/SNF: Pt has had HHC and been to a SNF in the past, she cannot recall the names of either. Pt states no concerns with going home at time of dc. Therapy has not yet worked with pt. Discussed with pt we will see how she does with therapy and then formulate a dc plan. Pt reports she has a wound to her RLE, she states family changes this dressing. Pt states no further concerns/needs. CM to follow. Advised pt to ask CM if any further question/concerns/needs arise, voices understanding. Pt Goal: Home Plan: TBD pending therapy gabe Gonzalez RN, CM
--- NOTE | 2023-08-15 14:58 | CHAPLAIN ---
Type of Pastoral Visit _x__ Initial Visit ___ Follow-up Visit ___ On-call Visit ___ General Patient Visit ___ Spiritual Assessment ___ Family Conference ___ Bereavement ___ Rapid Response ___ Code Blue ___ Other (describe below) Pastoral Care Referral From _x__ Patient ___ Family ___ Nurse ___ Physician ___ Metal Alloy Scientist ___ Material Carrier ___ Other (describe below) Sacrament/Intervention ___ Active listening ___ Anointing ___ Mosque ___ Bereavement ___ Communion ___ Shila exploration ___ ___ Life review ___ Prayer ___ Reconciliation ___ Sacrament of Sick _x__ Supportive presence ___ Wedding ___ Other (describe below) Pastoral Comments patient and a family member are in the room; pt is eating jello and is focused on that during visit; pt denies any special concerns and just mentions a couple of times about wanting to go home; offer of support to be given as pt desires
--- NOTE | 2023-08-15 15:43 | CON.PCM.NE_ITS ---
Assessment and Plan: Neuro Assessment/Plan BEVERLY GARCIA is a 87 F with history of gait difficulties, urinary incontinence and cognitive decline being evaluated by Teleneurology for NPH. Her imaging and history are consistent with NPH and I do suspect this. However, this is not responsible for any acute decline and is not a problem that can be addressed adequately while inpatient and mental status is clouded by medical sickness and/or delirium. She should be referred to outpatient neurology for evaluation and treatment of possible NPH. Diagnosis: NPH Plan: ambulatory referral to outpatient neurologist Transfer to [facility] for the following reasons: I personally attended this patient and spent a total time of minutes evaluating this patient including clinical assessment, review of chart, medical history imaging, and determining appropriate treatment and workup. HPI Consult Data Date of Consult: 08/15/23 HPI Narrative HPI Narrative: BEVERLY GARCIA, is a 87 F on whom we are consulted with concern for NPH after CTH raised concern. Sister is present (evaluation is over video) and adds to history. She says she is here because I had a fall. She does endorse some problems with memory. Incontinent of urine for several years. Sister says she is markedly less conversational today. However, no subacute decline in mentation over the last several months. At baseline she walks with a walker - two days ago she seemed diffusely weak. [facility] Medical History (Updated 08/14/23 @ 14:51 by Rayna Godinez) Abnormal urine finding Atherosclerosis of coronary artery bypass graft without angina pectoris Atherosclerotic cardiovascular disease Atherosclerotic heart disease of [place] coronary artery without angina pectoris Bronchitis Chronic diastolic (congestive) heart failure Chronic lymphoid leukemia Chronic pain Complete heart block COVID-19 DM (diabetes mellitus), type 2 with peripheral vascular complications Essential (primary) hypertension Gout HLD (hyperlipidemia) Hypogammaglobulinemia, acquired Left bundle branch block (LBBB) Macular degeneration Mitral valve annular calcification Myocardial infarct Non-smoker Nonrheumatic mitral (valve) insufficiency Nonsustained ventricular tachycardia Obstructive hypertrophic cardiomyopathy Other specified transient cerebral ischemias Pacemaker Peripheral edema Persistent atrial fibrillation Proteinuria Skin tear of left upper extremity TIA (transient ischemic attack) Uncontrolled hypertension URI (upper respiratory infection) Urinary frequency Home Medications cholecalciferol (vitamin D3) 125 mcg (5,000 unit) capsule 1 tab PO DAILY 05/18/15 [History Last Taken 08/07/23] duloxetine 60 mg capsule,delayed release 60 mg PO DAILY 04/11/16 [History Last Taken 08/07/23] gabapentin 300 mg capsule 300 mg PO TID 10/28/16 [History Last Taken 08/07/23] simvastatin 40 mg tablet 40 mg PO QHS 10/28/16 [History Last Taken Unknown] arginine (L-arginine) 500 mg tablet 500 mg PO BID 10/29/17 [History Last Taken 08/07/23] cyanocobalamin (vitamin B-12) 500 mcg tablet 1,000 mcg PO DAILY 11/26/17 [Hi story Last Taken Unknown] levothyroxine 50 mcg tablet 50 mcg PO DAILY 12/24/17 [History Last Taken 0 08/07/23] vit C 250 mg-vit E 90 mg-zinc 40 mg-copper 1 [id number] capsule (PreserVision AREDS-2) 1 tab PO BID 01/24/21 [History Last Taken Unknown] acyclovir 800 mg tablet 800 mg PO BID 05/16/21 [History Last Taken 08/07/23] metoprolol tartrate 50 mg tablet 50 mg PO BID #1 TAB 10/22/22 [Rx Last Taken 08/07/23] duloxetine 30 mg capsule,delayed release 30 mg PO QHS 11/01/22 [History Last Taken Unknown] furosemide 40 mg tablet (Lasix) 40 mg PO BID #180 tabs 01/30/23 [Rx Last Taken Unknown] isosorbide mononitrate 60 mg tablet,extended release 24 hr 60 mg PO DAILY 30 days #30 tabs 05/09/23 [Rx Last Taken Unknown] sennosides 8.6 mg-docusate sodium 50 mg tablet (Stool Softener-Stimulant Laxati ve) 2 tab PO BID PRN PRN Constipation #0 tabs 05/09/23 [Rx Last Taken Unknown] warfarin 2 mg tablet 4 mg PO DAILY #30 tabs 05/09/23 [Rx Last Taken 08/07/23] aspirin 81 mg tablet,delayed release (Adult Aspirin Regimen) 81 mg PO DAILY 06/17/23 [History Last Taken Unknown] spironolactone 25 mg tablet 12.5 mg (1/2 x 25 mg) PO DAILY #45 tabs 07/03/23 [Rx Last Taken 08/07/23] collagenase clostridium histo. 250 unit/gram topical ointment (Santyl) 1 applic topical DAILY #90 grams 07/22/23 [Rx Last Taken Unknown] oxybutynin chloride 10 mg tablet,extended release 24 hr 10 mg PO DAILY 08/14/23 [History Last Taken Unknown] Allergy/AdvReac Type Severity Reaction Status Date / Time amoxicillin trihydrate AdvReac Severe Vomiting Verified 08/14/23 09:53 [From Augmentin] lidocaine AdvReac Severe Other Verified 08/14/23 09:53 Penicillins AdvReac Severe Vomiting Verified 08/14/23 09:53 potassium clavulanate AdvReac Severe Vomiting Verified 08/14/23 09:53 [From Augmentin] Family History Father , age 86 CAD (coronary artery disease) Sister Asthma Mother Valvular heart disease Surgical History H/O coronary artery bypass surgery (01/15/11) History of appendectomy History of cholecystectomy History of coronary artery stent placement (06/17/11) History of electrophysiologic study (01/21/11) History of hysterectomy History of mitral valve repair (01/15/11) History of tonsillectomy nerve ablation for pain management Presence of permanent cardiac pacemaker (12/21/21) Social History household members: family housing: house Smoking Status: Never smoker alcohol intake: never substance use type: does not use caffeine: Yes Type: coffee Number of servings: 2 what type of physical activity do you participate in: walking and weight training frequency: 5-6 times per week Vital Signs Vital Signs Vital Signs: 08/14/23 21:12 08/14/23 21:40 08/14/23 21:50 Temperature 98.1 F Temperature Source Oral Pulse Rate 62 62 Respiratory Rate 20 H Respiratory Effort Respiratory Depth Respiratory Pattern Blood Pressure 165/57 H 165/57 H Blood Pressure Mean 93 Blood Pressure Source Monitor Blood Pressure Position Semi-Fowlers Blood Pressure Location Right Arm Pulse Ox 95 96 Oxygen Delivery Method Room Air Room Air 08/14/23 22:09 08/15/23 00:37 08/15/23 04:26 Temperature 97.5 F L 97.5 F L Temperature Source Oral Oral Pulse Rate 59 L 59 L Respiratory Rate 20 H 20 H Respiratory Effort Normal Non-Labored Respiratory Depth Normal Respiratory Pattern Normal Blood Pressure 172/62 H 151/60 H Blood Pressure Mean 98 90 Blood Pressure Source Monitor Monitor Blood Pressure Position Semi-Fowlers Right Lateral Blood Pressure Location Right Arm Left Arm Pulse Ox 94 99 Oxygen Delivery Method Room Air Room Air Room Air 08/15/23 08:13 08/15/23 08:14 08/15/23 08:23 Temperature 97.5 F L Temperature Source Oral Pulse Rate 60 60 Respiratory Rate 18 Respiratory Effort Normal Non-Labored Respiratory Depth Normal Respiratory Pattern Normal Blood Pressure 172/76 H 172/76 H Blood Pressure Mean 108 Blood Pressure Source Monitor Blood Pressure Position Semi-Fowlers Blood Pressure Location Right Arm Pulse Ox 99 Oxygen Delivery Method Room Air Room Air 08/15/23 07:08 08/15/23 15:09 08/15/23 15:11 Temperature 97.6 F L Temperature Source Oral Pulse Rate 59 L Respiratory Rate 18 Respiratory Effort Normal Non-Labored Respiratory Depth Normal Respiratory Pattern Normal Blood Pressure 145/65 H Blood Pressure Mean 91 Blood Pressure Source Monitor Blood Pressure Position Semi-Fowlers Blood Pressure Location Right Arm Pulse Ox 100 Oxygen Delivery Method Room Air Room Air Room Air Weight Weight: 73.936 kg Body Mass Index (BMI) 25.5 EEG Results Procedure Details EEG Procedure Details: BEVERLY GARCIA is a 87 year old F with a past medical history of , who presents for evaluation of Electroencephalogram on DATE at TIME Physical Exam Neuro Neuro Narrative: Testing over video assisted by nurse at bedside. AOx3, good attention and participation in exam, EOMI, facial sensation intact and symmetric, smile and eye closure strong and symmetric, 5/5 strength SA, EE, EF, Market Intelligence Consultant, HF, DF bilaterally, no ataxia on [id number] Lab / Micro Data 08/15/23 05:21 08/15/23 05:21 Labs: Laboratory Results - last 24 hr 08/14/23 15:21: Phosphorus 3.6, Magnesium 2.3 08/15/23 05:21: WBC 5.6, RBC 4.23, Hgb 12.9, Hct 39.9, MCV 94.3, MCH 30.5, MCHC 32.3, RDW Std Deviation 45.8 H, RDW Coeff of Patrice 13.4, Plt Count 184, MPV 10.5, Immature Gran % (Auto) 0.400, Neut % (Auto) 65.7, Lymph % (Auto) 21.4, [place] % (Auto) 11.4 H, Eos % (Auto) 1.1, Baso % (Auto) 0.0, Absolute Neuts (auto) 3.7, Absolute Lymphs (auto) 1.20, Nucleated RBC % 0, PT 29.5 H, INR 2.8, Sodium 139, Potassium 3.6, Chloride 107, Carbon Dioxide 22.0, Anion Gap 10, BUN 24 H, Creatinine 1.09 H, Estim Creat Clear Calc 38.19, Est GFR (MDRD) Af Amer 61, Est GFR (MDRD) Non-Af 50 L, BUN/Creatinine Ratio 22.0 H, Glucose 133 H, Calcium 9.6, TSH 2.90 Imaging CTH personally reviewed: shows disproportionate enlargement of lateral and third ventricles, suggestive of NPH Active Medications Active Medications Active Medications: Current Medications Generic Name Dose Route Start Last Admin Trade Name Memoq PRN Reason Stop Dose Admin Acetaminophen 1,000 mg 08/14/23 22:00 08/15/23 13:26 Acetaminophen 500 Mg Tablet PO 1,000 mg Q8 GARRY Administration Acyclovir 800 mg 08/14/23 22:00 08/15/23 08:23 Acyclovir 800 Mg Tablet PO 800 mg BID GARRY Administration Atorvastatin Calcium 20 mg 08/14/23 22:00 08/14/23 21:50 Atorvastatin Calcium 20 Mg Tablet PO 20 mg QHS GARRY Administration Calamine/Phenol 1 applic 08/15/23 10:00 08/15/23 08:22 Menthol/Lanolin/Calamine/Znox 113 Gm Tube TOPICAL 1 applic BID GARRY Administration Protocol Cholecalciferol 125 mcg 08/15/23 10:00 08/15/23 08:23 Cholecalciferol (Vit D3) 125 Mcg Capsule (5,000 Units) PO 125 mcg DAILY GARRY Administration Cyanocobalamin 1,000 mcg 08/15/23 10:00 08/15/23 08:24 Cyanocobalamin 500 Mcg Tablet PO 1,000 mcg DAILY GARRY Administration Duloxetine HCl 60 mg 08/15/23 10:00 08/15/23 08:23 Duloxetine Hcl 60 Mg Capsule PO 60 mg DAILY GARRY Administration Sodium Chloride 250 mls @ 15 mls/hr 08/14/23 14:41 IV .[id number] PRN Additional IVPB Infusion Sodium Chloride 250 mls @ 15 mls/hr 08/14/23 14:41 IV .[id number] PRN Saline Flush Isosorbide Mononitrate 60 mg 08/15/23 10:00 08/15/23 08:24 Isosorbide Mononitrate 60 Mg Tablet PO 60 mg DAILY GARRY Administration Protocol Levothyroxine Sodium 50 mcg 08/15/23 06:00 08/15/23 04:30 Levothyroxine 50 Mcg Tablet PO 50 mcg DAILY@0600 GARRY Administration Metoprolol Tartrate 50 mg 08/14/23 22:00 08/15/23 08:23 Metoprolol Tartrate 50 Mg Tablet PO 50 mg BID GARRY Administration Protocol Multivitamins/Minerals 1 cap 08/14/23 22:00 08/15/23 08:23 Multivitamin (Healthy Eyes) Capsule PO 1 cap BID GARRY Administration Nutritional Formula (Lactose Free) 120 ml 08/14/23 18:00 08/15/23 13:26 Ensure Plus High Protein 120 Ml Liquid PO 120 ml 4X/DAY GARRY Administration Nutritional Formula (Lactose Free) 120 ml 08/15/23 17:00 Glucerna Shake 120 Ml Liquid PO TIDCM [facility] Nystatin 1 applic 08/15/23 10:00 08/15/23 08:24 Nystatin Powder 15gm Bottle TOPICAL 1 applic BID [facility] Administration Protocol Prochlorperazine Edisylate 5 mg 08/14/23 15:12 Prochlorperazine 10 Mg/2 Ml Vial IV Q4H PRN PRN Breakthrough nausea/vomiting Senna/Docusate Sodium 2 tablet 08/14/23 15:12 Senna/Docusate Sodium 1 Tablet PO BID PRN PRN Constipation Sodium Chloride 10 - 40 ml 08/14/23 14:41 08/15/23 04:27 0.9% Saline Lock 10 Ml Syringe IV 10 ml UD PRN Administration SALINE FLUSH Tolterodine Tartrate 2 mg 08/15/23 10:00 08/15/23 08:23 Tolterodine Tartrate 2 Mg Cap.Sa PO 2 mg DAILY GARRY Administration
[2023-08-15] MEDS: Glucerna Shake 120 ML LIQUID PO (17:21)
[2023-08-15] MEDS: Atorvastatin Calcium 20 MG Tablet PO (21:15)
[2023-08-15 22:04] LABS: Bedside Glucose 145 mg/dL (74-106)
[2023-08-16] VITALS (10 sets, daily range): BP systolic 150–178; BP diastolic 60–70; PULSE 60–65; RESP 18; TEMP 36.3–36.6; O2SAT 94–99
[2023-08-16] MEDS: 0.9% Saline Lock 10 ML Syringe IV (05:29)
[2023-08-16] MEDS: Acetaminophen 500 MG Tablet 1000 MG PO ×3 (05:29→21:19)
[2023-08-16] MEDS: Levothyroxine 50 MCG Tablet PO (05:29)
[2023-08-16 06:31] LABS: International Normalized Ratio 1.9; Prothrombin Time (Protime)PT. 21.5 SECONDS (11.7-14.9)
--- NOTE | 2023-08-16 07:13 | PCM.PN.HOSP ---
Reason for Visit Reason for Visit: Diagnoses Other malaise (08/14/23) Unspecified injury of head, initial encounter (08/14/23) Subjective Subjective Patient seen still remains profoundly weak. Had a discussion with the patient regarding possible discharge to snf facility patient is agreeable case management informed Objective Data Objective Data Vital Signs: Vital Signs Temp Pulse Resp BP Pulse Ox O2 Del Method 97.8 F 60 18 167/60 H 95 Room Air 08/16/23 05:25 08/16/23 05:25 08/16/23 05:25 08/16/23 05:25 08/16/23 05:25 08/16/23 05:25 Oxygen Delivery Method Room Air Weight: 73.936 kg Body Mass Index (BMI) 25.5 Intake & Output: Intake and Output for Last 24 Hours 08/14/23 08/15/23 08/16/23 23:59 23:59 23:59 Intake Total 1000 / 1000 Output Total 1100 / 1100 300 / 300 Balance -100 / -100 -300 / -300 Lab / Micro Data 08/15/23 05:21 08/15/23 05:21 Labs: Laboratory Results - last 24 hr 08/15/23 05:21: PT 29.5 H, INR 2.8, Sodium 139, Potassium 3.6, Chloride 107, Carbon Dioxide 22.0, Anion Gap 10, BUN 24 H, Creatinine 1.09 H, Estim Creat Clear Calc 38.19, Est GFR (MDRD) Af Amer 61, Est GFR (MDRD) Non-Af 50 L, BUN/Creatinine Ratio 22.0 H, Glucose 133 H, Calcium 9.6, TSH 2.90 08/15/23 21:08: POC Glucose 145 H 08/16/23 06:08: PT 21.5 H, INR 1.9 Physical Exam Narrative GENERAL: cooperative HEENT: normocephalic bruise left occipitoparietal region EYES; Anicteric, Normal Conjunctiva NECK; supple, normal thyroid, RESPIRATORY: Diminished to auscultation CARDIOVASCULAR: Regular S1 S2, GI: soft, normoactive bowel sounds, : No Renal angle tenderness; EXTREMITIES: No edema, no clubbing, MUSCULOSKELETAL: no muscle wasting NEURO: Awake; no lateralizing signs. SKIN: Vesicular rash on anterior abdomen and intertrigo skin folds PSYCH; Flat affect Assessment & Plan Assessment/Plan (1) Closed head injury: (2) Debility: PLAN: Plan Patient is an 87-year-old lady admitted progressive generalized weakness with falls 1. Fall with closed head injury ? Imaging studies on admission did not show any evidence of intracranial abnormalities. She was however found to have features consistent with NPH. Consult placed to teleneuro ? 08/16/2023; Case was discussed with teleneuro patient symptoms consistent with NPH. Plan is for referral to neurology as outpatient 2. Suspected NPH ? Patient complains of gait abnormalities as well as being incontinent consult placed to teleneuro 3. Ulcer of right lower leg with chronic venous insufficiency Patient had chemical ablation of right below-knee GSV and small saphenous vein by Dr. Luke Foster on 08/07/2023. Wound care consult ordered. 4. Chronic A-fib ? Rate controlled on systemic anticoagulation with warfarin with a therapeutic INR of 3.0 5. Conduction system disorder (complete heart block) ? Status post pacemaker placement in January 2011 6. Coronary artery disease ? Previous CABG (BARBER to LAD, SVG to RCA, SVG to OM ) and PCI. Patient remains on guideline directed medical therapy 7. Obstructive hypertrophic cardiomyopathy - s/p septal myomectomy on 01/25/2011. Remained stable 8. Chronic congestive heart failure with preserved ejection fraction ? Echo obtained on 05/07/2023 demonstrated EF of 65% 9. Valvular heart disease -with history of mitral valve regurgitation status post repair 10. Diabetes mellitus type II -patient's oral hypoglycemics held. Placed on long acting insulin, Accu-Cheks a.c. and at bedtime and covered with sliding scale insulin 11 CLL ? Patient remains in remission followed by oncology as outpatient 12. Hypertension - Blood pressure controlled, home medications continued with dose adjustment as needed 13. Hypothyroidism - Patient is on levothyroxine home dose continued 14. Dyslipidemia -Patient is on statin therapy, continued at home dose 15. Physical deconditioning - Requested for PT OT eval and older adult social work specialist to assist with discharge planning ? 08/16/2023 ;Patient seen still remains profoundly weak. Had a discussion with the patient regarding possible discharge to snf facility patient is agreeable case management informed 16. Intertrigo ? Patient started on nystatin powder 17. Suspected zoster infection on the trunk ? Patient remains on acyclovir 18. DVT prophylaxis ? On warfarin Time spent in the patient's overall evaluation,decision-making process, review of diagnostic data, adjustment of management, discussion with other providers, nursing nursing and ancillary staff involved in patient's care documentation, 36 . Minutes Charges/Coding Visit Charges Inpatient E&M: 06602 Subs Hosp L2
--- NOTE | 2023-08-16 08:48 | CASEMGMT ---
Physician indicated patient should go to a SNF for short term rehab. SW met with patient. Introduced self and role at [facility]. SW explained physician is recommending patient go to a [place] [facility] facility short term for rehab. Patient stated she is agreeable. RODRIGUEZ told patient RODRIGUEZ will provide her with a list of facilities that take her insurance. Karen ISAAC
--- NOTE | 2023-08-16 09:03 | CASEMGMT ---
SW provided patient with a list of long term facility providers including quality and resource use data and consistent with patient?s preferred geographic region, medical needs, and insurance network were provided from the [employer] Guide. SW asked patient if she would like SW to contact her niece to let her know what was discussed. Patient stated she would like SW to call her niece. ? SW called patient's niece Jenny. Introduced self and role at [facility]. RODRIGUEZ explained recommendations for long term facility. Jenny agrees with this recommendation. RODRIGUEZ explained SW left a list of facilities in patient's room and we ask that they pick 3 or so facilities they are okay with. SW will take care of contacting facilities. Jenny stated she would like [facility] TCU. RODRIGUEZ sent a referral to [facility] in TCU via email. RODRIGUEZ will also update patient on conversation with Jenny and referral. Plan: Possibly TCU pending acceptance and bed availability. Karen Kumar LEAD MOBILE DEVELOPER [employer]CHO
[2023-08-16] MEDS: Menthol/Lanolin/Calamine/Znox 113 GM Tube 1 APPLIC TOPICAL ×2 (10:41→21:19)
[2023-08-16] MEDS: Nystatin Powder 15gm Bottle 1 APPLIC TOPICAL ×2 (10:43→21:19)
[2023-08-16] MEDS: Tolterodine Tartrate 2 MG CAP.SA PO (10:43)
[2023-08-16] MEDS: Cyanocobalamin 500 MCG Tablet 1000 MCG PO (10:43)
[2023-08-16] MEDS: Multivitamin (Healthy Eyes) Capsule 1 CAP PO ×2 (10:43→21:20)
[2023-08-16] MEDS: DULoxetine Hcl 60 MG Capsule PO (10:43)
[2023-08-16] MEDS: Acyclovir 800 MG Tablet PO ×2 (10:44→21:19)
[2023-08-16] MEDS: Metoprolol Tartrate 50 MG Tablet PO ×2 (10:44→21:19)
[2023-08-16] MEDS: Isosorbide Mononitrate 60 MG Tablet PO (10:44)
[2023-08-16] MEDS: Cholecalciferol (Vit D3) 125 MCG CAPSULE (5,000 UNITS) PO (10:44)
[2023-08-16] MEDS: Ensure Plus High Protein 120 ML LIQUID PO ×2 (10:45→18:09)
[2023-08-16] MEDS: Glucerna Shake 120 ML LIQUID PO (13:01)
--- NOTE | 2023-08-16 13:41 | CASEMGMT ---
RODRIGUEZ called patient's niece Jenny and let her know referral was made to TCU, but we will not have an answer until Friday. RODRIGUEZ let Jenny know SW will follow up with her on Friday. Karen ISAAC
[2023-08-16] MEDS: Atorvastatin Calcium 20 MG Tablet PO (21:21)
[2023-08-17] VITALS (9 sets, daily range): BP systolic 130–176; BP diastolic 62–87; PULSE 59–62; RESP 18; TEMP 36.3–36.8; O2SAT 94–99
[2023-08-17] MEDS: Acetaminophen 500 MG Tablet 1000 MG PO ×3 (05:14→21:57)
[2023-08-17] MEDS: Levothyroxine 50 MCG Tablet PO (05:14)
[2023-08-17] MEDS: 0.9% Saline Lock 10 ML Syringe IV (05:20)
[2023-08-17] MEDS: hydrALAZINE 20 MG/ML Vial 10 MG IV (05:30)
[2023-08-17 06:49] LABS: Absolute Lymphocyte Count 1.59 X10^3/uL (0.83-4.51); Absolute Neutrophil Count 5.2 X10^3/uL (2.0-7.7); Basophil# 0.01 X10^3/uL; Basophil% 0.1 % (0-1); Eosinophils% 1.3 % (0-5); Hematocrit 41.8 % (37-47); Hemoglobin 13.5 g/dL (12.0-15.0); Lymphocyte # 1.59 X10^3/ul (0.83-4.51); Lymphocyte % 20.6 % (19-41); Mean Corp Hgb Conc 32.3 g/dL (32-36); Mean Corpuscular Hgb 30.5 pg (27.0-32.0); Mean Corpuscular Volume 94.4 fL (81-99); Mean Platelet Vol. 10.4 fl (6.2-12.0); Monocyte# 0.77 X10^3/uL; NRBC Flagged by Analyzer 0 % (0-5); Neutrophil # 5.19 X10^3/uL (2.7-7.7); Neutrophil % 67.5 % (47-70); Platelet Count 236 K/mm3 (150-450); RBC Distribution Width CV 13.5 % (11.6-14.6); RBC Distribution Width SD 47.2 fl (35.1-43.9); Red Blood Count 4.43 M/mm3 (4.2-5.4); White Blood Count 7.7 K/mm3 (4.4-11.0)
[2023-08-17 07:04] LABS: International Normalized Ratio 1.3; Prothrombin Time (Protime)PT. 16.3 SECONDS (11.7-14.9)
[2023-08-17 07:06] LABS: Anion Gap 8 (5-15); BUN 23 mg/dL (7-18); BUN/Creat Ratio 22.8 RATIO (10-20); Calcium,Total 9.7 mg/dL (8.5-10.1); Chloride 108 mmol/L (98-107); Creatinine, Serum 1.01 mg/dL (0.55-1.02); EST Glomerular Filtration Rate 55 mL/min (>60); Est Glom Filt Rate - Afr Amer 67 mL/min (>60); Estimated Creatinine Clearance 41.22 ml/min; Glucose 129 mg/dL (74-106); Magnesium 2.1 mg/dL (1.6-2.6); Phosphorus 3.6 mg/dL (2.5-4.9); Potassium 3.9 mmol/L (3.5-5.1); Sodium Level 140 mmol/L (136-145)
--- NOTE | 2023-08-17 07:33 | PCM.PN.HOSP ---
Reason for Visit Reason for Visit: Diagnoses Other malaise (08/14/23) Unspecified injury of head, initial encounter (08/14/23) Subjective Subjective Patient seen this a.m. appears delirious. Ordered urinalysis to rule out UTI Objective Data Objective Data Vital Signs: Vital Signs Temp Pulse Resp BP Pulse Ox O2 Del Method 97.4 F L 62 18 150/68 H 95 Room Air 08/17/23 04:38 08/17/23 05:30 08/17/23 04:38 08/17/23 05:38 08/17/23 04:38 08/17/23 04:38 Oxygen Delivery Method Room Air Weight: 73.936 kg Body Mass Index (BMI) 25.5 Intake & Output: Intake and Output for Last 24 Hours 08/15/23 08/16/23 08/17/23 23:59 23:59 23:59 Intake Total 1000 / 1000 480 / 480 Output Total 1100 / 1100 750 / 750 150 / 150 Balance -100 / -100 -270 / -270 -150 / -150 Lab / Micro Data 08/17/23 05:00 08/17/23 05:00 Labs: Laboratory Results - last 24 hr 08/17/23 05:00: WBC 7.7, RBC 4.43, Hgb 13.5, Hct 41.8, MCV 94.4, MCH 30.5, MCHC 32.3, RDW Std Deviation 47.2 H, RDW Coeff of Patrice 13.5, Plt Count 236, MPV 10.4, Immature Gran % (Auto) 0.500, Neut % (Auto) 67.5, Lymph % (Auto) 20.6, [place] % (Auto) 10.0, Eos % (Auto) 1.3, Baso % (Auto) 0.1, Absolute Neuts (auto) 5.2, Absolute Lymphs (auto) 1.59, Nucleated RBC % 0, PT 16.3 H, INR 1.3, Sodium 140, Potassium 3.9, Chloride 108 H, Carbon Dioxide 24.0, Anion Gap 8, BUN 23 H, Creatinine 1.01, Estim Creat Clear Calc 41.22, Est GFR (MDRD) Af Amer 67, Est GFR (MDRD) Non-Af 55 L, BUN/Creatinine Ratio 22.8 H, Glucose 129 H, Calcium 9.7, Phosphorus 3.6, Magnesium 2.1 Physical Exam Narrative GENERAL: Patient is delirious HEENT: normocephalic bruise left occipitoparietal region EYES; Anicteric, Normal Conjunctiva NECK; supple, normal thyroid, RESPIRATORY: Diminished to auscultation CARDIOVASCULAR: Regular S1 S2, GI: soft, normoactive bowel sounds, : No Renal angle tenderness; EXTREMITIES: No edema, no clubbing, MUSCULOSKELETAL: no muscle wasting NEURO: Awake; no lateralizing signs. SKIN: Vesicular rash on anterior abdomen and intertrigo skin folds PSYCH; Flat affect Assessment & Plan Assessment/Plan (1) Closed head injury: (2) Debility: PLAN: Plan Patient is an 87-year-old lady admitted progressive generalized weakness with falls 1. Fall with closed head injury ? Imaging studies on admission did not show any evidence of intracranial abnormalities. She was however found to have features consistent with NPH. Consult placed to teleneuro ? 08/16/2023; Case was discussed with teleneuro patient symptoms consistent with NPH. Plan is for referral to neurology as outpatient 2. Suspected NPH ? Patient complains of gait abnormalities as well as being incontinent consult placed to teleneuro 3. Ulcer of right lower leg with chronic venous insufficiency Patient had chemical ablation of right below-knee GSV and small saphenous vein by Dr. Luke Foster on 08/07/2023. Wound care consult ordered. 4. Chronic A-fib ? Rate controlled on systemic anticoagulation with warfarin with a therapeutic INR of 3.0 5. Conduction system disorder (complete heart block) ? Status post pacemaker placement in January 2011 6. Coronary artery disease ? Previous CABG (BARBER to LAD, SVG to RCA, SVG to OM ) and PCI. Patient remains on guideline directed medical therapy 7. Obstructive hypertrophic cardiomyopathy - s/p septal myomectomy on 01/25/2011. Remained stable 8. Chronic congestive heart failure with preserved ejection fraction ? Echo obtained on 05/07/2023 demonstrated EF of 65% 9. Valvular heart disease -with history of mitral valve regurgitation status post repair 10. Diabetes mellitus type II -patient's oral hypoglycemics held. Placed on long acting insulin, Accu-Cheks a.c. and at bedtime and covered with sliding scale insulin 11 CLL ? Patient remains in remission followed by oncology as outpatient 12. Hypertension - Blood pressure controlled, home medications continued with dose adjustment as needed 13. Hypothyroidism - Patient is on levothyroxine home dose continued 14. Dyslipidemia -Patient is on statin therapy, continued at home dose 15. Physical deconditioning - Requested for PT OT eval and forensic social worker to assist with discharge planning ? 08/16/2023 ;Patient seen still remains profoundly weak. Had a discussion with the patient regarding [facility] patient is agreeable case management informed 16. Intertrigo ? Patient started on nystatin powder 17. Suspected zoster infection on the trunk ? Patient remains on acyclovir 18. DVT prophylaxis ? On warfarin 19. Acute encephalopathy ? Ordered urinalysis to rule out UTI Time spent in the patient's overall evaluation,decision-making process, review of diagnostic data, adjustment of management, discussion with other providers, nursing nursing and ancillary staff involved in patient's care documentation, 36 . Minutes Charges/Coding Visit Charges Inpatient E&M: 02600 Subs Hosp L2
[2023-08-17 09:03] LABS: Mucous, Urine 0 SEEN /hpf (<or=2+); Red Blood Cells-Urine 0 SEEN /hpf (0-5); Squamous Epithelial Cells - UA 0 SEEN /hpf (5-10)
[2023-08-17 09:06] LABS: Color, Urine Yellow (Yellow); Glucose, Dipstick Normal (Normal); Ketone-Dipstick Negative (Negative); Leukocyte Esterase-Dipstick 500 /ul (Negative); Nitrite-Dipstick Positive (Negative); Occult Blood-Urine 25 /ul (Negative); Protein-Dipstick 30 mg/dl (Negative); Specific Gravity, Urine 1.015 (1.002-1.030); Urine Bilirubin Dipstick Negative (Negative); Urine Clarity Cloudy (Clear); Urine Urobilinogen Normal (Normal)
[2023-08-17 09:47] LABS: Bacteria 3+ /hpf (None Seen); White Blood Cells >100 SEEN /hpf (0-5)
[2023-08-17] MEDS: Menthol/Lanolin/Calamine/Znox 113 GM Tube 1 APPLIC TOPICAL ×2 (11:07→21:54)
[2023-08-17] MEDS: Nystatin Powder 15gm Bottle 1 APPLIC TOPICAL ×2 (11:08→21:57)
[2023-08-17] MEDS: DULoxetine Hcl 60 MG Capsule PO (11:08)
[2023-08-17] MEDS: Cholecalciferol (Vit D3) 125 MCG CAPSULE (5,000 UNITS) PO (11:08)
[2023-08-17] MEDS: Ceftriaxone 1 GM/50 ML BAG IV (11:08)
[2023-08-17] MEDS: Cyanocobalamin 500 MCG Tablet 1000 MCG PO (11:08)
[2023-08-17] MEDS: Tolterodine Tartrate 2 MG CAP.SA PO (11:09)
[2023-08-17] MEDS: Metoprolol Tartrate 50 MG Tablet PO ×2 (11:09→21:57)
[2023-08-17] MEDS: Isosorbide Mononitrate 60 MG Tablet PO (11:09)
[2023-08-17] MEDS: Acyclovir 800 MG Tablet PO ×2 (11:09→21:57)
[2023-08-17] MEDS: Multivitamin (Healthy Eyes) Capsule 1 CAP PO ×2 (11:09→21:57)
[2023-08-17] MEDS: Ensure Plus High Protein 120 ML LIQUID PO (11:09)
[2023-08-17] MEDS: Glucerna Shake 120 ML LIQUID PO (11:50)
[2023-08-17] MEDS: Atorvastatin Calcium 20 MG Tablet PO (21:57)
[2023-08-18] VITALS (8 sets, daily range): BP systolic 144–170; BP diastolic 57–78; PULSE 59–62; RESP 14–22; TEMP 36.6–36.9; O2SAT 96–98
[2023-08-18] MEDS: Levothyroxine 50 MCG Tablet PO (05:21)
[2023-08-18] MEDS: Acetaminophen 500 MG Tablet 1000 MG PO ×3 (05:21→21:48)
[2023-08-18 05:24] LABS: Absolute Lymphocyte Count 1.62 X10^3/uL (0.83-4.51); Absolute Neutrophil Count 7.4 X10^3/uL (2.0-7.7); Basophil# 0.02 X10^3/uL; Basophil% 0.2 % (0-1); Eosinophil# 0.06 X10^3/uL; Eosinophils% 0.6 % (0-5); Hematocrit 39.2 % (37-47); Hemoglobin 12.8 g/dL (12.0-15.0); Lymphocyte # 1.62 X10^3/ul (0.83-4.51); Lymphocyte % 16.2 % (19-41); Mean Corp Hgb Conc 32.7 g/dL (32-36); Mean Corpuscular Hgb 30.3 pg (27.0-32.0); Mean Corpuscular Volume 92.9 fL (81-99); Mean Platelet Vol. 10.3 fl (6.2-12.0); Monocyte# 0.85 X10^3/uL; Monocyte% 8.5 % (0-10); NRBC Flagged by Analyzer 0 % (0-5); Neutrophil # 7.39 X10^3/uL (2.7-7.7); Neutrophil % 73.8 % (47-70); Platelet Count 252 K/mm3 (150-450); RBC Distribution Width CV 13.5 % (11.6-14.6); RBC Distribution Width SD 45.7 fl (35.1-43.9); Red Blood Count 4.22 M/mm3 (4.2-5.4)
[2023-08-18 05:50] LABS: Anion Gap 8 (5-15); BUN 21 mg/dL (7-18); BUN/Creat Ratio 21.7 RATIO (10-20); Calcium,Total 9.6 mg/dL (8.5-10.1); Chloride 107 mmol/L (98-107); Creatinine, Serum 0.97 mg/dL (0.55-1.02); EST Glomerular Filtration Rate 58 mL/min (>60); Est Glom Filt Rate - Afr Amer 70 mL/min (>60); Estimated Creatinine Clearance 42.92 ml/min; Glucose 145 mg/dL (74-106); Potassium 4.1 mmol/L (3.5-5.1); Sodium Level 138 mmol/L (136-145)
[2023-08-18 07:05] LABS: International Normalized Ratio 1.2; Prothrombin Time (Protime)PT. 15.6 SECONDS (11.7-14.9)
--- NOTE | 2023-08-18 08:08 | WOUNDNOTE ---
CHANDLER wrap intact to the right lower leg. patient is scheduled for an appt with podiatry tomorrow. will notify them if patient is still in the hospital.
[2023-08-18] MEDS: Nystatin Powder 15gm Bottle 1 APPLIC TOPICAL ×2 (08:31→21:49)
[2023-08-18] MEDS: DULoxetine Hcl 60 MG Capsule PO (08:31)
[2023-08-18] MEDS: Metoprolol Tartrate 50 MG Tablet PO ×2 (08:31→21:48)
[2023-08-18] MEDS: Menthol/Lanolin/Calamine/Znox 113 GM Tube 1 APPLIC TOPICAL ×2 (08:31→21:49)
[2023-08-18] MEDS: Cyanocobalamin 500 MCG Tablet 1000 MCG PO (08:31)
[2023-08-18] MEDS: Acyclovir 800 MG Tablet PO ×2 (08:32→21:48)
[2023-08-18] MEDS: Multivitamin (Healthy Eyes) Capsule 1 CAP PO ×2 (08:32→21:49)
[2023-08-18] MEDS: Tolterodine Tartrate 2 MG CAP.SA PO (08:32)
[2023-08-18] MEDS: Isosorbide Mononitrate 60 MG Tablet PO (08:32)
--- NOTE | 2023-08-18 08:44 | CASEMGMT ---
Social Work RODRIGUEZ spoke with [facility] in TCU and pt has been accepted. RODRIGUEZ met with pt and updated and placed call to pt's niece/HPOA Jenny and notified. Jenny agreeable to dc to TCU. Physician notified. Plan: TCU, when medically ready SHERLYE Amos
--- NOTE | 2023-08-18 09:32 | NURSING ---
Per RODRIGUEZ/, Patient accepted to TCU, d/c pending tomorrow, MD would like to keep pt one more day for IV ATB.
--- NOTE | 2023-08-18 09:58 | PN.HOSP_ITS ---
Subjective Subjective Doing well, no issues overnight. Per nursing staff her mentation does appear to be a little bit improved today Objective Data Objective Data Vital Signs: Vital Signs Temp Pulse Resp BP Pulse Ox O2 Del Method 98.2 F 60 14 150/63 H 98 Room Air 08/18/23 09:26 08/18/23 09:26 08/18/23 09:26 08/18/23 09:26 08/18/23 09:26 08/18/23 09:26 Oxygen Delivery Method Room Air Weight: 163 lb Body Mass Index (BMI) 25.5 Intake & Output: Intake and Output for Last 24 Hours 08/17/23 08/18/23 08/19/23 03:59 03:59 03:59 Intake Total 480 / 480 250 / 250 Output Total 750 / 750 500 / 500 Balance -270 / -270 -250 / -250 Lab / Micro Data 08/18/23 04:35 08/18/23 04:35 Labs: Laboratory Results - last 24 hr 08/18/23 04:35: WBC 10.0, RBC 4.22, Hgb 12.8, Hct 39.2, MCV 92.9, MCH 30.3, MCHC 32.7, RDW Std Deviation 45.7 H, RDW Coeff of Patrice 13.5, Plt Count 252, MPV 10.3, Immature Gran % (Auto) 0.700, Neut % (Auto) 73.8 H, Lymph % (Auto) 16.2 L, Campbell % (Auto) 8.5, Eos % (Auto) 0.6, Baso % (Auto) 0.2, Absolute Neuts (auto) 7.4, Absolute Lymphs (auto) 1.62, Nucleated RBC % 0, PT 15.6 H, INR 1.2, Sodium 138, Potassium 4.1, Chloride 107, Carbon Dioxide 23.0, Anion Gap 8, BUN 21 H, Creatinine 0.97, Estim Creat Clear Calc 42.92, Est GFR (MDRD) Af Amer 70, Est GFR (MDRD) Non-Af 58 L, BUN/Creatinine Ratio 21.7 H, Glucose 145 H, Calcium 9.6 Physical Exam Narrative General: Alert, cooperative, No apparent distress HEENT: Atraumatic, PERRLA, EOMI, Normocephalic Oral: Moist Mucosa Neck: Supple, No JVD Lungs: Diminished, Normal air movement, No rhonchi, No wheeze, No rales Cardiovascular: Regular rate, Regular Rhythm, Normal S1, Normal S2, No murmurs Abdomen: Soft, Non Tender, Non-Distended, No Hepato-splenomegaly Extremities: No edema, Capillary Refill Less than 3 Seconds Skin: Right lower extremity wound not infected Musculoskeletal: No Tenderness to Palpation of Joints or Extremities Neurological: No focal neurological deficits, Motor Exam 5/5 strength throughout, Sensory exam intact to light touch and pain Psych/Mental Status: Flat Assessment & Plan Assessment/Plan (1) Closed head injury: (2) Debility: PLAN: Plan 1. Fall with closed head injury with NPH/metabolic encephalopathy secondary to UTI ? Neurology was consulted and agrees with the possible diagnosis of NPH however this is not the cause of acute decline will follow-up as an outpatient ? Continue with antibiotics as UA was consistent with a UTI culture pending ? Confusion does appear to be improving per nursing staff will continue to monitor ? PT/OT ? Plan for SNF on discharge 2. Chronic A-fib/complete heart block status post pacemaker/CAD status post CABG and stents chronic diastolic CHF/HTN/HLD ? Blood pressure stable ? Will continue to monitor make adjustments as necessary ? Continue with her home medications ? Continue with statin ? Echo on 05/07/2023 with an EF of 65% ? Does have a history of septal myomectomy for obstructive cardiomyopathy 3. DM2 with right lower extremity ulceration and chronic venous insufficiency ? Continue with wound care ? Accu-Cheks ACHS ? Will monitor make adjustments as necessary ? Will hold her home oral hypoglycemics 4. CLL ? Remains in remission, follows with oncology as an outpatient 5. Hypothyroidism ? Stable ? Continue with Synthroid DVT: Coumadin Charges/Coding Visit Charges Inpatient E&M: 01125 Subs Hosp L2
[2023-08-18] MEDS: Ceftriaxone 1 GM/50 ML BAG IV (10:15)
[2023-08-18] MEDS: Cholecalciferol (Vit D3) 125 MCG CAPSULE (5,000 UNITS) PO (13:35)
[2023-08-18] MEDS: Atorvastatin Calcium 20 MG Tablet PO (21:48)
[2023-08-18] MEDS: 0.9% Saline Lock 10 ML Syringe IV (22:12)
[2023-08-19 01:03] VITALS: BP 139/74; PULSE 61; RESP 18; TEMP 36.3; O2SAT 98
[2023-08-19 05:20] VITALS: BP 176/67; PULSE 60; RESP 18; TEMP 36.6; O2SAT 98
[2023-08-19 05:29] VITALS: BP 176/67; PULSE 60
[2023-08-19] MEDS: hydrALAZINE 20 MG/ML Vial 10 MG IV (05:29)
[2023-08-19] MEDS: Levothyroxine 50 MCG Tablet PO (05:30)
[2023-08-19] MEDS: Acetaminophen 500 MG Tablet 1000 MG PO (05:30)
[2023-08-19] MEDS: 0.9% Saline Lock 10 ML Syringe IV ×2 (05:32→06:12)
[2023-08-19 07:30] LABS: International Normalized Ratio 1.2; Prothrombin Time (Protime)PT. 14.8 SECONDS (11.7-14.9)
[2023-08-19 07:46] VITALS: PULSE 61
[2023-08-19] MEDS: Cyanocobalamin 500 MCG Tablet 1000 MCG PO (07:46)
[2023-08-19] MEDS: Isosorbide Mononitrate 60 MG Tablet PO (07:46)
[2023-08-19] MEDS: Metoprolol Tartrate 50 MG Tablet PO (07:46)
[2023-08-19] MEDS: Tolterodine Tartrate 2 MG CAP.SA PO (07:46)
[2023-08-19] MEDS: Multivitamin (Healthy Eyes) Capsule 1 CAP PO (07:46)
[2023-08-19] MEDS: DULoxetine Hcl 60 MG Capsule PO (07:46)
[2023-08-19] MEDS: Acyclovir 800 MG Tablet PO (07:46)
[2023-08-19] MEDS: Cholecalciferol (Vit D3) 125 MCG CAPSULE (5,000 UNITS) PO (07:47)
[2023-08-19] MEDS: Menthol/Lanolin/Calamine/Znox 113 GM Tube 1 APPLIC TOPICAL (07:47)
[2023-08-19] MEDS: Nystatin Powder 15gm Bottle 1 APPLIC TOPICAL (07:47)
[2023-08-19 09:01] VITALS: BP 162/70; PULSE 61; RESP 16; TEMP 36.4; O2SAT 98
[2023-08-19] MEDS: Ceftriaxone 1 GM/50 ML BAG IV (09:52)
--- NOTE | 2023-08-19 10:19 | PCM.TXEXTCAR ---
Diet Diet Order/Speech Therapy: 08/15/23 13:48 Diet: Cardiac: Calorie-Controlled Is pt able to select menu?: Yes How many daily calories?: 1600 calorie Routine Orders/Code Status Routine Lab Work: CBC, BMP and INR Code Status: DNRCC-A Wound(s) LEFT HEAD- BEHIND EAR: Wound Type: Abrasion R forearm: Wound Type: Skin Tear RLE: Wound Type: Surgical Incision Therapies Physical Therapy: Eval and Treat Occupational Therapy: Eval and Treat Problem/Diagnosis (1) Closed head injury: Status: Acute Code(s): S09.90XA - Unspecified injury of head, initial encounter (2) Debility: Status: Acute Code(s): R53.81 - Other malaise Plan 1. Fall with closed head injury with NPH/metabolic encephalopathy secondary to UTI ? Neurology was consulted and agrees with the possible diagnosis of NPH however this is not the cause of acute decline will follow-up as an outpatient ? Continue with antibiotics as UA was consistent with a UTI culture pending ? Confusion does appear to be improving per nursing staff will continue to monitor ? PT/OT ? Plan for SNF on discharge 2. Chronic A-fib/complete heart block status post pacemaker/CAD status post CABG and stents chronic diastolic CHF/HTN/HLD ? Blood pressure stable ? Will continue to monitor make adjustments as necessary ? Continue with her home medications ? Continue with statin ? Echo on 05/07/2023 with an EF of 65% ? Does have a history of septal myomectomy for obstructive cardiomyopathy 3. DM2 with right lower extremity ulceration and chronic venous insufficiency ? Continue with wound care ? Accu-Cheks ACHS ? Will monitor make adjustments as necessary ? Will hold her home oral hypoglycemics 4. CLL ? Remains in remission, follows with oncology as an outpatient 5. Hypothyroidism ? Stable ? Continue with Synthroid DVT: Coumadin Allergies/Procedures Done in Hospital Allergies amoxicillin trihydrate [From Augmentin] Adverse Reaction (Severe, Verified 08/14/23 09:53) Vomiting lidocaine Adverse Reaction (Severe, Verified 08/14/23 09:53) Other fainting, INJECTABLE ONLY Penicillins Adverse Reaction (Severe, Verified 08/14/23 09:53) Vomiting potassium clavulanate [From Augmentin] Adverse Reaction (Severe, Verified 08/14/23 09:53) Vomiting Procedures: None Type of Care/Length of Stay Estimated LOS: Convalescent Care Less Than 30 days Type of Care Needed: Skilled Rehab Potential: Fair Prognosis: Fair Additional Orders/Day of Discharge Day of Discharge: 08/19/23 Dietary and Speech Recommendations Dietitian Recommendations/Changes: Will change diet to 1600 elis Cardiac d/t pmhx Will change ensure plus high protein to glucerna shake d/t hx of DM Discharge Plan Admission Admit Date/Time: 08/14/23 13:58 Attending Provider: Warren Olmedo Primary Care Provider: Susie Dang Consulting Providers: Diego Simms; Larry Fang; Naa Simms; Sara Milton; Shelia Lee; Jen Quiñonez; Hakan Ardon; Alanis Johnson; Jason Nickerson; James Mcduffie; Rachelle Dupont; Salomon Butterfield; Alessandra Bright; Jose Bang; Marin Prince; Rod Moreno; Tim Conway; Vincent Bautista; Stacey Harris; Natalya Vasquez; Bernard Matias Discharge Orders/Prescriptions Prescriptions: New cefdinir 300 mg capsule 300 mg PO BID Qty: 6 0RF Continued PreserVision AREDS-2 250-90-40-1 mg capsule 1 tab PO BID acyclovir 800 mg tablet 800 mg PO BID cholecalciferol (vitamin D3) 5,000 UNIT capsule 1 tab PO DAILY duloxetine 60 MG capsule,delayed release(DR/EC) 60 mg PO DAILY gabapentin 300 MG capsule 300 mg PO TID simvastatin 40 MG tablet 40 mg PO QHS arginine (L-arginine) 500 MG tablet 500 mg PO BID Hold Instructions: MD Ordered cyanocobalamin (vitamin B-12) 500 MCG tablet 1,000 mcg PO DAILY levothyroxine 50 MCG tablet 50 mcg PO DAILY Patient Comments: luis 2 on Friday duloxetine 30 mg capsule,delayed release(DR/EC) 30 mg PO QHS Patient Comments: takes @ HS isosorbide mononitrate 60 mg Tablet Extended Release 24 Hr 60 mg PO DAILY 30 Days Qty: 30 2RF sennosides-docusate sodium [Stool Softener-Stimulant Laxat] 8.6-50 mg Tablet 2 tab PO BID PRN PRN (Reason: Constipation) Qty: 0 0RF warfarin 2 mg tablet 4 mg PO DAILY Qty: 30 0RF Protocol: Dose Management Condition: Friday Dose/Route: 4 mg Instruction: 2 x 2 mg tablets Condition: Friday Dose/Route: 4 mg Instruction: 2 x 2 mg tablets Condition: Friday Dose/Route: 4 mg Instruction: 2 x 2 mg tablets Condition: Friday Dose/Route: 4 mg Instruction: 2 x 2 mg tablets Condition: Dose/Route: 0 mg Instruction: 0 tablets Condition: Friday Dose/Route: 0 mg Instruction: 0 tablets Condition: Friday Dose/Route: 4 mg Instruction: 2 x 2 mg tablets Protocol Text: Adjustment Start Date: 08/07/23 INR Value: 4.0 INR Date: 08/07/23 Recheck Date: 08/14/23 Patient Comments: was told to hold till sat for inr 3.0 Rx Instructions: 4 mg orally FRIDAY-Friday and (6mg) ON Friday and Friday. Santyl 250 unit/gram ointment 1 applic topical DAILY Qty: 90 0RF aspirin [Adult Aspirin Regimen] 81 mg tablet,delayed release (DR/EC) 81 mg PO DAILY oxybutynin chloride 10 mg tablet extended release 24hr 10 mg PO DAILY metoprolol tartrate 50 mg tablet 50 mg PO BID Qty: 1 0RF furosemide [Lasix] 40 mg tablet 40 mg PO BID Qty: 180 3RF spironolactone 25 mg tablet 12.5 mg PO DAILY Qty: 45 3RF Referrals / Follow Up: Fast,Susie, DO [Primary Care Provider] - Disposition Disposition (needs filled in before D/C Order can be placed): Longterm Facility
--- NOTE | 2023-08-19 10:45 | PHA.DC_ITS ---
Pharmacy [place] Med Reconciliation Pharmacy Service has performed discharge medication reconciliation for this patient. Warfarin held on admission, INR 3, INR now 1.2, warfarin restarted. The patient's discharge medication list was reviewed for discrepancies and discrepancies were resolved. Medications at Discharge Home Medications cholecalciferol (vitamin D3) 125 mcg (5,000 unit) capsule 1 tab PO DAILY 05/18/15 duloxetine 60 mg capsule,delayed release 60 mg PO DAILY 04/11/16 gabapentin 300 mg capsule 300 mg PO TID 10/28/16 simvastatin 40 mg tablet 40 mg PO QHS 10/28/16 arginine (L-arginine) 500 mg tablet 500 mg PO BID 10/29/17 cyanocobalamin (vitamin B-12) 500 mcg tablet 1,000 mcg PO DAILY 11/26/17 levothyroxine 50 mcg tablet 50 mcg PO DAILY 12/24/17 vit C 250 mg-vit E 90 mg-zinc 40 mg-copper 1 [id number]-ekbamh capsule (PreserVision AREDS-2) 1 tab PO BID 01/24/21 acyclovir 800 mg tablet 800 mg PO BID 05/16/21 metoprolol tartrate 50 mg tablet 50 mg PO BID #1 TAB 10/22/22 duloxetine 30 mg capsule,delayed release 30 mg PO QHS 11/01/22 furosemide 40 mg tablet (Lasix) 40 mg PO BID #180 tabs 01/30/23 isosorbide mononitrate 60 mg tablet,extended release 24 hr 60 mg PO DAILY 30 days #30 tabs 05/09/23 sennosides 8.6 mg-docusate sodium 50 mg tablet (Stool Softener-Stimulant L axative) 2 tab PO BID PRN PRN Constipation #0 tabs 05/09/23 warfarin 2 mg tablet 4 mg PO DAILY #30 tabs 05/09/23 aspirin 81 mg tablet,delayed release (Adult Aspirin Regimen) 81 mg PO DAILY 06/17/23 spironolactone 25 mg tablet 12.5 mg (1/2 x 25 mg) PO DAILY #45 tabs 07/03/23 collagenase clostridium histo. 250 unit/gram topical ointment (Santyl) 1 applic topical DAILY #90 grams 07/22/23 oxybutynin chloride 10 mg tablet,extended release 24 hr 10 mg PO DAILY 08/14/23 cefdinir 300 mg capsule 300 mg PO BID #6 caps 08/19/23
--- NOTE | 2023-08-19 11:59 | CASEMGMT ---
Social Work Pt discharged to TCU today. RODRIGUEZ faxed over all discharge paperwork to TCU. SW called pt's paulino Alvarado, let her know pt is going to TCU today, she is agreeable. Pt's sister Anamika is in the room, SW let her know as well pt going to TCU today. Anamika asked about a dressing change that [facility]. RODRIGUEZ spoke w/RN then customs investigator, she is waiting to hear back from the doctor on what needs done and will follow up w/the pt. SW let pt's sister know. Pt to TCU today, skilled level of care. CATARINO Norton
--- NOTE | 2023-08-19 13:43 | PCM.DC.SUM ---
Providers Date of Admission: 08/14/23 Primary Care Physician: Dr. Susie Dang, Consultations 08/14/23 15:12 Consult: Onc/Wound/waiter/waitress room service Routine Comment: Reason for Consult:: right leg ulcer s/p surgery 08/15/23 10:27 Tele [Consult: Tele-Neurology] Routine Consulting Provider: [facility] Reason for Consult: NPH EMERGENT Consult: No MD Notified: Yes Date Notified: 08/15/23 Time Notified: 11:24 Method of Notification: Answering Service Nursing Unit Staff Notify [facility] of Tele-Neurology Consult: Yes Reason For Visit: FALL, GENERALIZED WEAKNESS Diagnosis Discharge Diagnosis (1) Closed head injury: Status: Acute Code(s): S09.90XA - Unspecified injury of head, initial encounter (2) Debility: Status: Acute Code(s): R53.81 - Other malaise Medications at Discharge Home Medications cholecalciferol (vitamin D3) 125 mcg (5,000 unit) capsule 1 tab PO DAILY 05/18/15 duloxetine 60 mg capsule,delayed release 60 mg PO DAILY 04/11/16 gabapentin 300 mg capsule 300 mg PO TID 10/28/16 simvastatin 40 mg tablet 40 mg PO QHS 10/28/16 arginine (L-arginine) 500 mg tablet 500 mg PO BID 10/29/17 cyanocobalamin (vitamin B-12) 500 mcg tablet 1,000 mcg PO DAILY 11/26/17 levothyroxine 50 mcg tablet 50 mcg PO DAILY 12/24/17 vit C 250 mg-vit E 90 mg-zinc 40 mg-copper 1 [id number]-wkhjfe capsule (PreserVision AREDS-2) 1 tab PO BID 01/24/21 acyclovir 800 mg tablet 800 mg PO BID 05/16/21 metoprolol tartrate 50 mg tablet 50 mg PO BID #1 TAB 10/22/22 duloxetine 30 mg capsule,delayed release 30 mg PO QHS 11/01/22 furosemide 40 mg tablet (Lasix) 40 mg PO BID #180 tabs 01/30/23 isosorbide mononitrate 60 mg tablet,extended release 24 hr 60 mg PO DAILY 30 days #30 tabs 05/09/23 sennosides 8.6 mg-docusate sodium 50 mg tablet (Stool Softener-Stimulant Laxative) 2 tab PO BID PRN PRN Constipation #0 tabs 05/09/23 aspirin 81 mg tablet,delayed release (Adult Aspirin Regimen) 81 mg PO DAILY 06/17/23 spironolactone 25 mg tablet 12.5 mg (1/2 x 25 mg) PO DAILY #45 tabs 07/03/23 collagenase clostridium histo. 250 unit/gram topical ointment (Santyl) 1 applic topical DAILY #90 grams 07/22/23 oxybutynin chloride 10 mg tablet,extended release 24 hr 10 mg PO DAILY 08/14/23 cefdinir 300 mg capsule 300 mg PO BID #6 caps 08/19/23 warfarin 2 mg tablet 4 mg PO MOTUWETHFR Blood thinner 08/19/23 Hospital Course Operations None Procedures None Summary of Care Provided Minutes Spent on Discharge: 33 Hospital Course: Per HPI: BEVERLY GARCIA, is a 87 F with multiple comorbidities on medications including warfarin for chronic A-fib came to ED after she had a fall. The patient is accompanied by her daughter and grand nephew. Patient is awake and gives history. She said she was walking, felt her legs weak could not hold up and then fell on the back of the head. Mild headache and neck pain but no LOC. She felt dizziness after the fall but not before fall. No nystagmus. As per daughter accompanying the patient, she was little bit weak yesterday also but was able to walk with a walker and do her activities of daily living but in the morning she was very weak. Denies other acute recent symptoms including fever, URI, dysuria/burning micturition, abdominal pain, chest pain pressure tightness, shortness of breath, palpitation or other change. In ED, she was not able to stand up or walk therefore admitted for further evaluation. Hospital Course: 1. Fall with closed head injury with NPH/metabolic cephalopathy secondary to UTI?87-year-old female presents to the hospital with a mechanical fall and closed head injury. Neurology was consulted and agreed with the possible diagnosis of NPH however did not feel that workup was emergent and can be done as an outpatient. She did develop some delirium and she continues to be a little bit more confused than baseline on discharge however she was found to have a UA that was positive for E. coli, she has received 3 doses of IV Rocephin on the day of discharge and will be continued on cefdinir for another 3 days as her E. coli was sensitive to Rocephin. Given her age and her initial debility and the fact that she has been in the hospital for 5 days I elected to proceed with discharge to the transitional care unit despite not fully recovering her mental faculties as we had an appropriate course of action and cause for her increased confusion and I would like for her to start on physical therapy as soon as possible to help facilitate her return home as quickly as possible. She was discharged to the transitional care unit this afternoon. 2. Chronic A-fib, complete heart block status post pacemaker, CAD status post CABG and stent, chronic diastolic CHF, hypertension, hyperlipidemia, type 2 diabetes with right lower extremity ulceration chronic venous insufficiency, CLL, hypothyroidism are all chronic medical conditions which complicate her care. Her home medications were continued where appropriate. Physical Exam Narrative General: Alert, cooperative, No apparent distress HEENT: Atraumatic, PERRLA, EOMI, Normocephalic Oral: Moist Mucosa Neck: Supple, No JVD Lungs: Diminished, Normal air movement, No rhonchi, No wheeze, No rales Cardiovascular: Regular rate, Regular Rhythm, Normal S1, Normal S2, No murmurs Abdomen: Soft, Non Tender, Non-Distended, No Hepato-splenomegaly Extremities: No edema, Capillary Refill Less than 3 Seconds Skin: Right lower extremity wound not infected Musculoskeletal: No Tenderness to Palpation of Joints or Extremities Neurological: No focal neurological deficits, Motor Exam 5/5 strength throughout, Sensory exam intact to light touch and pain Psych/Mental Status: Normal affect Weight / BMI Weight Weight: 163 lb Body Mass Index (BMI) 25.5 ABG / Lab / Microbiology Data 08/18/23 04:35 08/18/23 04:35 Laboratory: Laboratory Results - last 24 hr 08/19/23 06:07: PT 14.8, INR 1.2 Microbiology: Microbiology 08/17/23 08:30 Urine Catheter - Catheter Urine Culture - Final Presumptive E. coli Meaningful Use Info Meaningful Use Meaningful Use Diagnoses (Choose all that apply): None applicable Ischemic Stroke Statin Dosing Therapy Reference: STATIN DOSE THERAPY REFERENCE: * Patients > 75 years receive moderate or high dose statin therapy. * Patients 75 years or YOUNGER should receive HIGH intensity statin dose unless contraindicated. You will be required to document reason for non-treatment if statin daily dose does not meet guidelines. HIGH DOSE STATIN THERAPY DAILY Atorvastatin > than or = to 40 mg Rosuvastatin > than or = to 20 mg Amlodipine + Atorvastatin > than or = to 2.5/40 mg Ezetimibe + Simvastatin 10/80 mg Simvastatin 80mg Discharge Plan Admission Admit Date/Time: 08/14/23 13:58 Attending Provider: Warren Olmedo Primary Care Provider: Susie Dang Consulting Providers: Diego Simms; Larry Fang; Naa Simms; Sara Milton; Shelia Lee; Jen Quiñonez; Hakan Ardon; Alanis Johnson; Jason Nickerson; James Mcduffie; Rachelle Dupont; Salomon Butterfield; Alessandra Bright; Jose Bang; Marin Prince; Rod Moreno; Tim Conway; Vincent Bautista; Stacey Harris; Natalya Vasquez; Bernard Matias Discharge Orders/Prescriptions Prescriptions: New cefdinir 300 mg capsule 300 mg PO BID Qty: 6 0RF Continued PreserVision AREDS-2 250-90-40-1 mg capsule 1 tab PO BID acyclovir 800 mg tablet 800 mg PO BID cholecalciferol (vitamin D3) 5,000 UNIT capsule 1 tab PO DAILY duloxetine 60 MG capsule,delayed release(DR/EC) 60 mg PO DAILY gabapentin 300 MG capsule 300 mg PO TID simvastatin 40 MG tablet 40 mg PO QHS arginine (L-arginine) 500 MG tablet 500 mg PO BID Hold Instructions: MD Ordered cyanocobalamin (vitamin B-12) 500 MCG tablet 1,000 mcg PO DAILY levothyroxine 50 MCG tablet 50 mcg PO DAILY Patient Comments: luis 2 on Friday duloxetine 30 mg capsule,delayed release(DR/EC) 30 mg PO QHS Patient Comments: takes @ HS isosorbide mononitrate 60 mg Tablet Extended Release 24 Hr 60 mg PO DAILY 30 Days Qty: 30 2RF sennosides-docusate sodium [Stool Softener-Stimulant Laxat] 8.6-50 mg Tablet 2 tab PO BID PRN PRN (Reason: Constipation) Qty: 0 0RF warfarin 2 mg tablet 4 mg PO DAILY Qty: 30 0RF Protocol: Dose Management Condition: Friday Dose/Route: 4 mg Instruction: 2 x 2 mg tablets Condition: Friday Dose/Route: 4 mg Instruction: 2 x 2 mg tablets Condition: Friday Dose/Route: 4 mg Instruction: 2 x 2 mg tablets Condition: Friday Dose/Route: 4 mg Instruction: 2 x 2 mg tablets Condition: Dose/Route: 0 mg Instruction: 0 tablets Condition: Friday Dose/Route: 0 mg Instruction: 0 tablets Condition: Friday Dose/Route: 4 mg Instruction: 2 x 2 mg tablets Protocol Text: Adjustment Start Date: 08/07/23 INR Value: 4.0 INR Date: 08/07/23 Recheck Date: 08/14/23 Patient Comments: was told to hold till sat for inr 3.0 Rx Instructions: 4 mg orally FRIDAY-Friday and (6mg) ON Friday and Friday. Santyl 250 unit/gram ointment 1 applic topical DAILY Qty: 90 0RF aspirin [Adult Aspirin Regimen] 81 mg tablet,delayed release (DR/EC) 81 mg PO DAILY oxybutynin chloride 10 mg tablet extended release 24hr 10 mg PO DAILY metoprolol tartrate 50 mg tablet 50 mg PO BID Qty: 1 0RF furosemide [Lasix] 40 mg tablet 40 mg PO BID Qty: 180 3RF spironolactone 25 mg tablet 12.5 mg PO DAILY Qty: 45 3RF Referrals / Follow Up: Susie Dang DO [Primary Care Provider] - Disposition Disposition (needs filled in before D/C Order can be placed): Senior Living Facility Charges/Coding Visit Charges Inpatient E&M: 15339 Disch Hosp >30min
== END 2023-08-19 12:58 | disposition skilled nursing facility (03) | DRG 673 ==
LOC: ED 13:29 → MS3 14:06
PROVIDERS: Internal Medicine; Admitting Provider Internal Medicine; Emergency Provider Emergency Medicine; PCP Internal Medicine; Visit Provider Family Medicine
DX: N39.0 Urinary tract infection, site not specified (principal); G93.41 Metabolic encephalopathy; G91.2 (Idiopathic) normal pressure hydrocephalus; I42.1 Obstructive hypertrophic cardiomyopathy; I13.0 Hypertensive heart and chronic kidney disease with heart failure and stage 1 through stage 4 chronic kidney disease, or unspecified chronic kidney disease; C91.11 Chronic lymphocytic leukemia of B-cell type in remission; I50.32 Chronic diastolic (congestive) heart failure; N18.4 Chronic kidney disease, stage 4 (severe); I48.19 Other persistent atrial fibrillation; L97.312 Non-pressure chronic ulcer of right ankle with fat layer exposed; E11.22 Type 2 diabetes mellitus with diabetic chronic kidney disease; E11.40 Type 2 diabetes mellitus with diabetic neuropathy, unspecified; E11.59 Type 2 diabetes mellitus with other circulatory complications; E11.51 Type 2 diabetes mellitus with diabetic peripheral angiopathy without gangrene; E03.9 Hypothyroidism, unspecified; I73.89 Other specified peripheral vascular diseases; I87.2 Venous insufficiency (chronic) (peripheral); E78.5 Hyperlipidemia, unspecified; S16.1XXA Strain of muscle, fascia and tendon at neck level, initial encounter; S00.03XA Contusion of scalp, initial encounter; I25.10 Atherosclerotic heart disease of native coronary artery without angina pectoris; I45.9 Conduction disorder, unspecified; W18.30XA Fall on same level, unspecified, initial encounter; L30.4 Erythema intertrigo; Z95.5 Presence of coronary angioplasty implant and graft; R79.1 Abnormal coagulation profile; Z79.82 Long term (current) use of aspirin; Z79.01 Long term (current) use of anticoagulants; Z95.0 Presence of cardiac pacemaker; B96.20 Unspecified Escherichia coli [E. coli] as the cause of diseases classified elsewhere; Z48.812 Encounter for surgical aftercare following surgery on the circulatory system; Z79.899 Other long term (current) drug therapy; Z79.890 Hormone replacement therapy; Y92.009 Unspecified place in unspecified non-institutional (private) residence as the place of occurrence of the external cause; B02.9 Zoster without complications
CPT/HCPCS: 11042; 15271; 29581; 36415; 70450; 71045; 72125; 80048; 81001; 82962; 83735; 84100; 84443; 85025; 85610; 87086; 87088; 87186; 93005; 93971; 97110; 97116; 97162; 97166; 97535; 97802; 99284; Q4186; A4216

== ENCOUNTER 2023-08-19 13:09 | Inpatient (IN) | payer MEDICARE, OTHER, SELFPAY ==
[2023-08-19 13:27] VITALS: BP 155/64; PULSE 70; RESP 18; TEMP 36.5; O2SAT 99; BMI 25.7
[2023-08-19 13:51] VITALS: BMI 25.7
--- NOTE | 2023-08-19 14:18 | PCM.HP.STD ---
HPI - General General Date of Admission: 08/19/23 Date of Service: 08/19/23 Chief Complaint: Here for rehabilitation. HPI Narrative 08/14/2023 BEVERLY GARCIA, is a 87 Female who presents to [facility] ED with fall, head injury, on coumadin. Lost balance, fell at home, on coumadin, hit back of head. Mild headache, neck pain, no LOC, intermittent weakness. Posterior scalp hematoma, growing. CT head suggestive of NPH. Unable to walk. 08/14/2023 Admit to [facility]. PT/OT Debility. Wound care for right lower extremity ulcer. 08/15/2023 Progressive weakness, falls. Consult Neurology for NPH, patient has ataxia, urinary incontinence. 08/15/2023 Neurology recommended outpatient f/u of NPH> Does not feel NPH contributing to current decline. 08/16/2023 Weak, patient agreeable to discharge to SNF. PT/OT SNF. 08/17/2023 Confused, check UA to rule out UTI. Nystatin powder for intertrigo. 08/18/2023 Improved. Urinalysis consistent with UTI, antibiotics given, urine culture growing E. Coli. PT/OT SNF. 08/19/2023 Admit to TCU with debility, here for rehabilitation, strengthening, prior to discharge home with family. [facility] Medical History Abnormal urine finding Atherosclerosis of coronary artery bypass graft without angina pectoris Atherosclerotic cardiovascular disease Atherosclerotic heart disease of [place] coronary artery without angina pectoris Bronchitis Chronic diastolic (congestive) heart failure Chronic lymphoid leukemia Chronic pain Complete heart block COVID-19 DM (diabetes mellitus), type 2 with peripheral vascular complications Essential (primary) hypertension Gout HLD (hyperlipidemia) Hypogammaglobulinemia, acquired Left bundle branch block (LBBB) Macular degeneration Mitral valve annular calcification Myocardial infarct Non-smoker Nonrheumatic mitral (valve) insufficiency Nonsustained ventricular tachycardia Obstructive hypertrophic cardiomyopathy Other specified transient cerebral ischemias Pacemaker Peripheral edema Persistent atrial fibrillation Proteinuria Skin tear of left upper extremity TIA (transient ischemic attack) Uncontrolled hypertension URI (upper respiratory infection) Urinary frequency Home Medications cholecalciferol (vitamin D3) 125 mcg (5,000 unit) capsule 1 tab PO DAILY supplement 05/18/15 [History Last Taken 08/07/23] duloxetine 60 mg capsule,delayed release 60 mg PO DAILY nerve pain 12/29/16 [History Last Taken 08/07/23] gabapentin 300 mg capsule 300 mg PO TID nerve pain 10/28/16 [History Last Taken 08/07/23] simvastatin 40 mg tablet 40 mg PO QHS cholestrol 10/28/16 [History Last Taken 08/18/23] arginine (L-arginine) 500 mg tablet 500 mg PO BID supplement 10/29/17 [History Last Taken 08/07/23] cyanocobalamin (vitamin B-12) 500 mcg tablet 1,000 mcg PO DAILY supplement 11/26/17 [History Last Taken 08/19/23] levothyroxine 50 mcg tablet 50 mcg PO DAILY thyroid 12/24/17 [History Last Taken 08/19/23] vit C 250 mg-vit E 90 mg-zinc 40 mg-copper 1 [id number] capsule (PreserVision AREDS-2) 1 tab PO BID Vision 01/24/21 [History Last Taken 08/19/23] acyclovir 800 mg tablet 800 mg PO BID HSV 05/16/21 [History Last Taken 08/19/23] metoprolol tartrate 50 mg tablet 50 mg PO BID BP #1 TAB 10/22/22 [Rx Last Taken 08/19/23] duloxetine 30 mg capsule,delayed release 30 mg PO QHS nerve pain 11/01/22 [History Last Taken Unknown] furosemide 40 mg tablet (Lasix) 40 mg PO BID fluid retention #180 tabs 01/30/23 [Rx Last Taken Unknown] isosorbide mononitrate 60 mg tablet,extended release 24 hr 60 mg PO DAILY heart failure 30 days #30 tabs 05/09/23 [Rx Last Taken 08/19/23] sennosides 8.6 mg-docusate sodium 50 mg tablet (Stool Softener-Stimulant Laxative) 2 tab PO BID PRN PRN Constipation #0 tabs 05/09/23 [Rx Last Taken Unknown] aspirin 81 mg tablet,delayed release (Adult Aspirin Regimen) 81 mg PO DAILY Heart health 06/17/23 [History Last Taken Unknown] spironolactone 25 mg tablet 12.5 mg (1/2 x 25 mg) PO DAILY BP #45 tabs 07/03/23 [Rx Last Taken 08/07/23] collagenase clostridium histo. 250 unit/gram topical ointment (Santyl) 1 applic topical DAILY wound #90 grams 07/22/23 [Rx Last Taken Unknown] oxybutynin chloride 10 mg tablet,extended release 24 hr 10 mg PO DAILY Bladder 08/14/23 [History Last Taken 08/19/23] cefdinir 300 mg capsule 300 mg PO BID antibiotic #6 caps 08/19/23 [Rx Last Taken Unknown] warfarin 2 mg tablet 4 mg PO MOTUWETHFR Blood thinner 08/19/23 [History Last Taken Unknown] Allergy/AdvReac Type Severity Reaction Status Date / Time amoxicillin trihydrate AdvReac Severe Vomiting Verified 08/14/23 09:53 [From Augmentin] lidocaine AdvReac Severe Other Verified 08/14/23 09:53 Penicillins AdvReac Severe Vomiting Verified 08/14/23 09:53 potassium clavulanate AdvReac Severe Vomiting Verified 08/14/23 09:53 [From Augmentin] Family History Father , age 86 CAD (coronary artery disease) Sister Asthma Mother Valvular heart disease Surgical History H/O coronary artery bypass surgery (01/15/11) History of appendectomy History of cholecystectomy History of coronary artery stent placement (06/17/11) History of electrophysiologic study (01/21/11) History of hysterectomy History of mitral valve repair (01/15/11) History of tonsillectomy nerve ablation for pain management Presence of permanent cardiac pacemaker (12/21/21) Social History household members: family housing: house Smoking Status: Never smoker alcohol intake: never substance use type: does not use caffeine: Yes Type: coffee Number of servings: 2 what type of physical activity do you participate in: walking and weight training frequency: 5-6 times per week ROS Constitutional Constitutional: Reports weakness; Denies chills, fever(s) or weight gain ENT HEENT: Denies headache(s), nasal congestion or nasal discharge Cardiovascular Cardiovascular: Denies chest pain or palpitations Respiratory/Chest Respiratory/Chest: Denies cough, excessive phlegm production or shortness of breath with exertion Gastrointestinal Gastrointestinal: Denies abdominal pain, nausea or vomiting Genitourinary Genitourinary: Denies dysuria Musculoskeletal Musculoskeletal: Denies joint pain or joint swelling Integumentary Integumentary: Denies rash or wounds Neurologic Neurologic: Denies focal weakness, numbness or tingling Psychiatric Psychiatric: Denies anxiety, auditory hallucinations, depression, homicidal ideation or suicidal ideation Vital Signs Vital Signs Vital Signs: 08/19/23 13:27 08/19/23 13:35 Temperature 97.7 F L Temperature Source Temporal Pulse Rate 70 Pulse Rhythm Regular Pulse Strength Normal (2+) Respiratory Rate 18 Respiratory Effort Normal Non-Labored Respiratory Depth Normal Respiratory Pattern Normal Blood Pressure 155/64 H Blood Pressure Mean 94 Blood Pressure Source Monitor Blood Pressure Position Sitting Blood Pressure Location Right Arm Pulse Ox 99 Oxygen Delivery Method Room Air Room Air Weight Weight: 74.48 kg Body Mass Index (BMI) 25.7 Physical Exam Const alert General Appearance: cooperative HEENT normocephalic Eyes PERRL and EOMs intact bilaterally Neck supple, no JVD and no carotid bruits Resp normal respiratory effort, normal air movement and clear to auscultation bilaterally Cardio regular rate and regular rhythm GI normal to inspection, nondistended, normoactive bowel sounds, non-tender and non-distended Extremity normal capillary refill Extremity Narrative: Right lower extremity dressed, wound per wound nurse. General Extremity: Negative for edema Skin no rashes or lesions noted General Skin Exam: no breakdown Psych affect normal Appearance: appropriate Assessment & Plan Assessment/Plan (1) Debility: (2) Closed head injury: (3) NPH (normal pressure hydrocephalus): (4) UTI (urinary tract infection): (5) Coronary artery disease: (6) Type 2 diabetes mellitus with hyperglycemia: (7) Vitamin D deficiency: (8) Depression: (9) Neuropathic pain: (10) HLD (hyperlipidemia): QUALIFIERS: Hyperlipidemia type: pure hypercholesterolemia Qualified Code(s): E78.00 - Pure hypercholesterolemia, unspecified; E78.0 - Pure hypercholesterolemia (11) Hypothyroidism: (12) Herpes zoster: (13) (HFpEF) heart failure with preserved ejection fraction: (14) Overactive bladder: (15) A-fib: QUALIFIERS: Atrial fibrillation type: longstanding persistent Qualified Code(s): I48.11 - Longstanding persistent atrial fibrillation PLAN: Plan 87 year old female with below past medical history hospitalized for fall, closed head injury 2/2 UTI, complicated by NPH, admitted to TCU with debility, here for rehabilitation, strengthening, prior to discharge home with family. Debility - PT/OT. Cognition - ST. Pain - Tylenol 1000mg q6 prn pain (1-10). Bowel - senna/colace 2 tablets bid prn. Adult immunization - Administer pneumonia vaccine, covid vaccine, flu vaccine as appropriate. DVT prophylaxis - resident on warfarin. Closed head injury - expressive aphasia, order f/u MRI brain to ensure no new injury or bleeding. Herpes Zoster - Acyclovir 800mg bid. Hyperlipidemia - Atorvastatin 20mg qhs. E. Coli UTI - Cefdinir 300mg bid thru 08/25/2023. Vitamin D deficiency - Vitamin D 125mcg daily. Right lower extremity ulcer - Santyl topical daily. Vitamin B12 deficiency - Vitamin B12 1000mcg daily. 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 HFpEF - Metoprolol 50mg bid, Isosorbide [place] 60mg daily, Fuorsemide 40mg bidlx, Aldactone 12.5mg daily. Neuropathic pain - Gabapentin 300mg tid. Nutrition - Glucerna Shake 120ml tidcm. Hypothyroidism - Levothyroxine 50mcg daily. Skin irritation - Calmoseptine topical bid. Macular degeneration - Healthy Eyes 1 cap bid. Tinea Corporis - Nystatin powder topical bid. Overactive bladder - Detrol 2mg daily. Atrial fibrillation - Metoprolol 50mg bid, warfarin 4mg 4 days/week, 6mg 2 days/week, monitor INR.
[2023-08-19 15:01] VITALS: BMI 25.7
--- NOTE | 2023-08-19 15:06 | NURSING ---
Patient's sister Brynn present with patient and assisted with admission questions.
[2023-08-19] MEDS: Glucerna Shake 120 ML LIQUID PO (17:43)
--- NOTE | 2023-08-19 17:56 | NURSING ---
Addendum entered by Merly García 08/19/23 19:18: Per MRI unable to be completed due to leads to pacemaker not compatible w/ MRI. Original Note: Written MRI order faxed to imaging at [phone].
[2023-08-19 20:59] VITALS: BP 157/61; PULSE 60
[2023-08-19] MEDS: Multivitamin (Healthy Eyes) Capsule 1 CAP PO (21:03)
[2023-08-19] MEDS: DULoxetine Hcl 30 MG Capsule PO (21:03)
[2023-08-19] MEDS: Atorvastatin Calcium 20 MG Tablet PO (21:04)
[2023-08-19 21:05] VITALS: BP 157/61; PULSE 60
[2023-08-19] MEDS: Metoprolol Tartrate 50 MG Tablet PO (21:05)
[2023-08-19] MEDS: Acyclovir 800 MG Tablet PO (21:05)
[2023-08-19] MEDS: Cefdinir 300 MG Capsule PO (21:05)
[2023-08-19] MEDS: Gabapentin 300 MG Capsule PO (21:08)
[2023-08-19] MEDS: Nystatin Powder 15gm Bottle 1 APPLIC TOPICAL (21:09)
[2023-08-19] MEDS: Menthol/Lanolin/Calamine/Znox 113 GM Tube 1 APPLIC TOPICAL (21:09)
[2023-08-19] MEDS: 0.9% Saline Lock 10 ML Syringe IV (22:36)
[2023-08-19] MEDS: Acetaminophen 500 MG Tablet 1000 MG PO (23:28)
--- NOTE | 2023-08-20 04:27 | NURSING ---
sent order to radiology department for CT scan per order, PT. down to radiology department for CT scan at time.
--- NOTE | 2023-08-20 04:35 | NURSING ---
PT returned from CT scan.
[2023-08-20] MEDS: Gabapentin 300 MG Capsule PO ×2 (04:42→23:14)
[2023-08-20] MEDS: Furosemide 40 MG Tablet PO (04:43)
[2023-08-20] MEDS: Levothyroxine 50 MCG Tablet PO (04:43)
[2023-08-20 05:53] LABS: Absolute Lymphocyte Count 1.43 X10^3/uL (0.83-4.51); Absolute Neutrophil Count 4.7 X10^3/uL (2.0-7.7); Basophil# 0.01 X10^3/uL; Basophil% 0.1 % (0-1); Eosinophil# 0.09 X10^3/uL; Eosinophils% 1.3 % (0-5); Hematocrit 37.5 % (37-47); Hemoglobin 12.1 g/dL (12.0-15.0); Lymphocyte # 1.43 X10^3/ul (0.83-4.51); Mean Corp Hgb Conc 32.3 g/dL (32-36); Mean Corpuscular Hgb 30.3 pg (27.0-32.0); Mean Corpuscular Volume 93.8 fL (81-99); Mean Platelet Vol. 10.6 fl (6.2-12.0); Monocyte# 0.89 X10^3/uL; Monocyte% 12.4 % (0-10); NRBC Flagged by Analyzer 0 % (0-5); Neutrophil % 65.6 % (47-70); Platelet Count 212 K/mm3 (150-450); RBC Distribution Width CV 13.5 % (11.6-14.6); RBC Distribution Width SD 45.9 fl (35.1-43.9); White Blood Count 7.2 K/mm3 (4.4-11.0)
[2023-08-20 06:05] LABS: International Normalized Ratio 1.1; Prothrombin Time (Protime)PT. 14.5 SECONDS (11.7-14.9)
[2023-08-20 06:18] LABS: Anion Gap 6 (5-15); BUN 20 mg/dL (7-18); BUN/Creat Ratio 18.9 RATIO (10-20); Chloride 105 mmol/L (98-107); Creatinine, Serum 1.06 mg/dL (0.55-1.02); EST Glomerular Filtration Rate 52 mL/min (>60); Est Glom Filt Rate - Afr Amer 63 mL/min (>60); Glucose 144 mg/dL (74-106); Sodium Level 136 mmol/L (136-145)
[2023-08-20 09:52] VITALS: BP 154/67; PULSE 61; RESP 20; TEMP 36.5; O2SAT 93
--- NOTE | 2023-08-20 10:05 | NURSING ---
Pt opened eyes and responding with 1-2 words prior to attempt med administration, kept eyes closed and mouth shut when attempting medical accounts receivable specialist. Reattempted x2, pt continues resting with eyes closed. As exiting room, noted pt repositioning self/blankets. Respirations even, non-labored. No s/s of pain at this time.
[2023-08-20] MEDS: 0.9% Normal Saline (1000mL) 1,000 ML 75 ML IV (10:15)
--- NOTE | 2023-08-20 10:20 | WOUNDNOTE ---
wound photo: right lateral ankle
--- NOTE | 2023-08-20 11:05 | PCM.PN.DRR ---
Documented by User: Audrey Lynne 08/20/23 11:48 TCU RX Drug Regimen Review Subjective/Objective Subjective/Objective: Subjective: TCU Admission. 87 YOF presented to the ER with fall/head injury. Hospitalized for fall, closed head injury 2/2 UTI, complicated by NPH. Admitted to TCU with debility for strengthening and rehabilitation. Objective: Allergies amoxicillin trihydrate [From Augmentin] Adverse Reaction (Severe, Verified 08/14/23 09:53) Vomiting lidocaine Adverse Reaction (Severe, Verified 08/14/23 09:53) Other fainting, INJECTABLE ONLY Penicillins Adverse Reaction (Severe, Verified 08/14/23 09:53) Vomiting potassium clavulanate [From Augmentin] Adverse Reaction (Severe, Verified 08/14/23 09:53) Vomiting Current Medications Generic Name Dose Route Start Last Admin Trade Name Freq PRN Reason Stop Dose Admin Acetaminophen 1,000 mg 08/19/23 19:32 08/19/23 23:28 Acetaminophen 500 Mg Tablet PO 1,000 mg Q6H PRN PRN Administration Pain Score 1-10 Acyclovir 800 mg 08/19/23 22:00 08/20/23 10:04 Acyclovir 800 Mg Tablet PO Not Given BID [facility] Atorvastatin Calcium 20 mg 08/19/23 22:00 08/19/23 21:04 Atorvastatin Calcium 20 Mg Tablet PO 20 mg QHS [facility] Administration Calamine/Phenol 1 applic 08/19/23 22:00 08/20/23 10:02 Menthol/Lanolin/Calamine/Znox 113 Gm Tube TOPICAL Not Given BID [facility] Protocol Cefdinir 300 mg 08/19/23 22:00 08/20/23 10:03 Cefdinir 300 Mg Capsule PO 08/25/23 22:01 Not Given BID [facility] Cholecalciferol 125 mcg 08/20/23 10:00 08/20/23 10:04 Cholecalciferol (Vit D3) 125 Mcg Capsule (5,000 Units) PO Not Given DAILY [facility] Cyanocobalamin 1,000 mcg 08/20/23 10:00 08/20/23 10:04 Cyanocobalamin 500 Mcg Tablet PO Not Given DAILY [facility] Duloxetine HCl 60 mg 08/20/23 10:00 08/20/23 10:02 Duloxetine Hcl 60 Mg Capsule PO Not Given DAILY [facility] Duloxetine HCl 30 mg 08/19/23 22:00 08/19/23 21:03 Duloxetine Hcl 30 Mg Capsule PO 30 mg QHS [facility] Administration Furosemide 40 mg 08/20/23 06:00 08/20/23 04:43 Furosemide 40 Mg Tablet PO 40 mg BIDLX [facility] Administration Protocol Gabapentin 300 mg 08/19/23 22:00 08/20/23 04:42 Gabapentin 300 Mg Capsule PO 300 mg TID [facility] Administration Sodium Chloride 1,000 mls @ 75 mls/hr 08/20/23 09:05 08/20/23 10:15 IV 75 mls/hr .[id number] [facility] Administration Isosorbide Mononitrate 60 mg 08/20/23 10:00 08/20/23 10:03 Isosorbide Mononitrate 60 Mg Tablet PO Not Given DAILY [facility] Protocol Levothyroxine Sodium 50 mcg 08/20/23 06:00 08/20/23 04:43 Levothyroxine 50 Mcg Tablet PO 50 mcg DAILY@0600 [facility] Administration Metoprolol Tartrate 50 mg 08/19/23 22:00 08/20/23 10:03 Metoprolol Tartrate 50 Mg Tablet PO Not Given BID [facility] Protocol Multivitamins/Minerals 1 cap 08/19/23 22:00 08/20/23 10:03 Multivitamin (Healthy Eyes) Capsule PO Not Given BID [facility] Nutritional Formula (Lactose Free) 120 ml 08/19/23 17:45 08/20/23 10:02 Glucerna Shake 120 Ml Liquid PO Not Given TIDCM [facility] Nystatin 1 applic 08/19/23 22:00 08/20/23 10:03 Nystatin Powder 15gm Bottle TOPICAL Not Given BID [facility] Protocol Senna/Docusate Sodium 2 tablet 08/19/23 14:49 Senna/Docusate Sodium 1 Tablet PO BID PRN PRN Constipation Sodium Chloride 10 - 40 ml 08/19/23 13:31 08/19/23 22:36 0.9% Saline Lock 10 Ml Syringe IV 10 ml UD PRN Administration SALINE FLUSH Spironolactone 12.5 mg 08/20/23 10:00 08/20/23 10:02 Spironolactone 25 Mg Tablet PO Not Given DAILY [facility] Protocol Tolterodine Tartrate 2 mg 08/20/23 10:00 08/20/23 10:03 Tolterodine Tartrate 2 Mg Cap.Sa PO Not Given DAILY [facility] Tuberculin PPD 0.1 ml 08/27/23 10:00 Tuberculin,Purif.Prot.Deriv. 50 Tu/Ml Vial ID 08/27/23 10:01 X1 ONE Warfarin Sodium 6 mg 08/23/23 17:00 Warfarin 6 Mg Tablet PO SuSa@1700 [facility] Warfarin Sodium 4 mg 08/19/23 17:00 08/19/23 17:45 Warfarin 4 Mg Tablet PO 4 mg [id number]@1700 [facility] Administration Problem List (Updated 08/20/23 @ 00:03 by Background Daemon) Overactive bladder (Acute) (HFpEF) heart failure with preserved ejection fraction (Acute) Herpes zoster (Acute) Hypothyroidism (Acute) Neuropathic pain (Acute) Depression (Acute) Vitamin D deficiency (Acute) Type 2 diabetes mellitus with hyperglycemia (Acute) Coronary artery disease (Acute) NPH (normal pressure hydrocephalus) (Acute) Debility (Acute) Closed head injury (Acute) A-fib (Acute) UTI (urinary tract infection) (Acute) HLD (hyperlipidemia) (Chronic) Vital Signs Temp Pulse Resp BP Pulse Ox O2 Del Method 97.7 F L 61 20 H 154/67 H 93 Room Air 08/20/23 09:52 08/20/23 09:52 08/20/23 09:52 08/20/23 09:52 08/20/23 09:52 08/20/23 09:52 Oxygen Delivery Method Room Air Weight: 74.48 kg Body Mass Index (BMI) 25.7 Sodium 136 mmol/L (136-145) 08/20/23 05:16 Potassium 4.0 mmol/L (3.5-5.1) 08/20/23 05:16 Chloride 105 mmol/L (98-107) 08/20/23 05:16 Carbon Dioxide 25.0 mmol/L (21.0-32.0) 08/20/23 05:16 Anion Gap 6 (5-15) 08/20/23 05:16 BUN 20 mg/dL (7-18) H 08/20/23 05:16 Creatinine 1.06 mg/dL (0.55-1.02) H 08/20/23 05:16 Est GFR (MDRD) Af Amer 63 mL/min (>60) 08/20/23 05:16 Est GFR (MDRD) Non-Af 52 mL/min (>60) L 08/20/23 05:16 BUN/Creatinine Ratio 18.9 RATIO (10-20) 08/20/23 05:16 Glucose 144 mg/dL (74-106) H 08/20/23 05:16 Assessment/Plan: 1. Pain: acetaminophen 1000mg PO Q6H PRN pain 1-10. Resident has had 1 dose for a pain score of 6 in the back. Please continue to monitor for increased pain and PRN usage. 2. Bowel: senna/docusate 2T PO BID PRN constipation. Resident has not had any doses. Please continue to monitor for constipation and PRN usage. Last documented bowel movement 08/17. 3. E. coli UTI: cefdinir 300mg PO BID thru 08/25/23. Please continue to monitor for diarrhea, stool discoloration and renal function. 4. HFpEF/atrial fibrillation: metoprolol tartrate 50mg PO BID, isosorbide mononitrate 60mg PO daily, furosemide 40mg PO BIDLX, spironolactone 12.5mg PO daily, warfarin 6mg PO Sa and Davison then 4mg all other days. Please continue to monitor BP (last 154/67), HR (last 61), swelling, renal function, potassium (last 4mmol/L), S/S of bleeding and INR 1.1. Please consider giving an extra 2mg of warfarin (total of 6mg) as the INR is only 1.1. Thanks. 5. Hyperlipidemia: atorvastatin 20mg PO QHS. Please continue to monitor lipid panel (last 05/08/23), LFTs (last 05/19/23) and muscle pain. 6. Herpes Zoster: acyclovir 800mg PO BID. Please continue to monitor for S/S of herpes and renal function. 7. Hypothyroidism: levothyroxine 50mcg PO daily. Please continue to monitor TSH (last 08/15/23), free T4 (last 01/04/23) and S/S of hypo/hyperthyroidism. 8. Overactive bladder: tolterodine 2mg PO daily. Please continue to monitor for S/S of overactive bladder, dementia/delirium (BEERs medication) and dry mouth. 9. Vitamin D/B12 deficiencies and nutrition: cholecalciferol 125mcg PO daily, cyanocobalamin 1000mcg PO daily and healthy eyes 1C PO BID. Please continue to monitor vitamin D (last 01/07/23) and vitamin B12 (last 01/07/23). Assessment/Plan for indications treated with psychotropic medications: 1. Depression: duloxetine 60mg PO QAM and 30mg PO QHS. Please see physician note regarding GDR. Please continue to monitor for suicidal ideation (black box warning), falls/fractures (BEERs medication), sodium (last 136mmol/L), and renal function. 2. Neuropathic pain: gabapentin 300mg PO TID. GDR not appropriate as this medication is for neuropathic pain. Please consider changing the frequency to BID (CrCl 39mL/min) to prevent adverse effects as this medication is on the BEERs list (presented with a fall). Please continue to monitor for falls/fractures (BEERs medication), renal function and confusion. Medical chart and medication regimen reviewed. The following medication irregularities or issues were identified: 1. Warfarin 6mg PO Sa and Davison then 4mg all other days. Please consider giving an extra 2mg of warfarin (total of 6mg) today as the INR is only 1.1. Thanks. 2. Gabapentin 300mg PO TID. Please consider changing the frequency to BID (CrCl 39mL/min) to prevent adverse effects as this medication is on the BEERs list (presented with a fall). Thanks. Date Date of Note:: 08/20/23 Documented by User: Dr. Roberto Almanza MD 08/20/23 13:00 TCU RX Drug Regimen Review Provider Comments Provider responsibility Provider Comments to Recommendations by Pharmacy: Agree
--- NOTE | 2023-08-20 12:15 | NURSING ---
Motor Expert Note; Activity Asset: Sixto Eagle is independent in her choice of daily activities. She prefers independent activities in room at this time. She welcomes visits from others and will watch tv and read. Staff will encourage group activities and remind her of daily activities and respect her right to say no.
[2023-08-20 14:00] VITALS: BP 175/56; PULSE 59; RESP 18; TEMP 36.6; O2SAT 97
--- NOTE | 2023-08-20 14:36 | NURSING ---
Addendum entered by [facility] 08/20/23 16:17: ED called, pt transported off unit by staff @1615. Addendum entered by [facility] 08/20/23 15:40: Pt returns to unit. Per ED staff, no open beds on unit, they will call when bed available. Addendum entered by [facility] 08/20/23 15:37: Called and notified Dr. Almanza, who gave order to send pt to ED for change in mental status. Notified pt's sister, and called [facility]var[facility], who are in agreement with plan of care. Called report to ED. Transported pt off unit ~1525. Original Note: Pt lethargic throughout morning, slept through breakfast and lunch. Respirations even, non-labored 18. Initiated new orders NS 75mL/hr ~1000 today. Currently bp-175/56, p-59, t-97.9, sp02-97% on room air. Pt does not rouse enough to take medications. Sister present at bedside, expresses concern regarding pt condition today. States that pt was awake and alert, even walked in unit hallways yesterday with staff.
[2023-08-20 14:59] VITALS: O2SAT 93
--- NOTE | 2023-08-20 21:08 | NURSING ---
Call received from ER, PT ready to be picked up and transferred to TCU.
--- NOTE | 2023-08-20 21:16 | NURSING ---
PT returned to floor from ER via bed and 2 staff.
[2023-08-20 21:38] VITALS: BP 189/77; PULSE 60; TEMP 36.4; O2SAT 99
[2023-08-20] MEDS: 0.9% Saline Lock 10 ML Syringe IV (22:43)
[2023-08-20] MEDS: Menthol/Lanolin/Calamine/Znox 113 GM Tube 1 APPLIC TOPICAL (22:45)
[2023-08-20] MEDS: Nystatin Powder 15gm Bottle 1 APPLIC TOPICAL (22:46)
[2023-08-20 22:48] VITALS: BP 174/66
[2023-08-20 23:10] VITALS: BP 174/66; PULSE 60
[2023-08-20] MEDS: Metoprolol Tartrate 50 MG Tablet PO (23:10)
[2023-08-20] MEDS: Atorvastatin Calcium 20 MG Tablet PO (23:10)
[2023-08-20] MEDS: Multivitamin (Healthy Eyes) Capsule 1 CAP PO (23:10)
[2023-08-20] MEDS: DULoxetine Hcl 30 MG Capsule PO (23:10)
[2023-08-20] MEDS: Cefdinir 300 MG Capsule PO (23:11)
[2023-08-20] MEDS: Acyclovir 800 MG Tablet PO (23:11)
--- NOTE | 2023-08-20 23:38 | NURSING ---
No new orders received from ER visit.
[2023-08-21] MEDS: 0.9% Normal Saline (1000mL) 1,000 ML 75 ML IV ×2 (00:07→13:31)
[2023-08-21] MEDS: Furosemide 40 MG Tablet PO ×2 (05:33→13:38)
[2023-08-21] MEDS: Levothyroxine 50 MCG Tablet PO (05:34)
[2023-08-21 05:36] VITALS: BP 157/56; PULSE 60
[2023-08-21 05:56] LABS: Absolute Lymphocyte Count 1.11 X10^3/uL (0.83-4.51); Absolute Neutrophil Count 6.4 X10^3/uL (2.0-7.7); Basophil# 0.01 X10^3/uL; Basophil% 0.1 % (0-1); Eosinophils% 1.2 % (0-5); Hematocrit 38.2 % (37-47); Hemoglobin 12.3 g/dL (12.0-15.0); Lymphocyte # 1.11 X10^3/ul (0.83-4.51); Mean Corp Hgb Conc 32.2 g/dL (32-36); Mean Corpuscular Hgb 30.7 pg (27.0-32.0); Mean Corpuscular Volume 95.3 fL (81-99); Mean Platelet Vol. 10.8 fl (6.2-12.0); Monocyte% 10.6 % (0-10); NRBC Flagged by Analyzer 0 % (0-5); Neutrophil # 6.36 X10^3/uL (2.7-7.7); Neutrophil % 74.6 % (47-70); Platelet Count 217 K/mm3 (150-450); RBC Distribution Width CV 13.6 % (11.6-14.6); RBC Distribution Width SD 47.8 fl (35.1-43.9); Red Blood Count 4.01 M/mm3 (4.2-5.4); White Blood Count 8.5 K/mm3 (4.4-11.0)
[2023-08-21 06:18] LABS: International Normalized Ratio 1.3; Prothrombin Time (Protime)PT. 15.9 SECONDS (11.7-14.9)
[2023-08-21 06:42] LABS: Anion Gap 6 (5-15); BUN 17 mg/dL (7-18); BUN/Creat Ratio 17.9 RATIO (10-20); Calcium,Total 8.8 mg/dL (8.5-10.1); Chloride 108 mmol/L (98-107); Creatinine, Serum 0.95 mg/dL (0.55-1.02); EST Glomerular Filtration Rate 59 mL/min (>60); Est Glom Filt Rate - Afr Amer 72 mL/min (>60); Estimated Creatinine Clearance 43.96 ml/min; Glucose 125 mg/dL (74-106); Potassium 3.9 mmol/L (3.5-5.1); Sodium Level 139 mmol/L (136-145)
[2023-08-21] MEDS: Glucerna Shake 120 ML LIQUID PO ×3 (09:11→18:00)
[2023-08-21] MEDS: Cyanocobalamin 500 MCG Tablet 1000 MCG PO (09:13)
[2023-08-21] MEDS: DULoxetine Hcl 60 MG Capsule PO (09:19)
[2023-08-21] MEDS: Multivitamin (Healthy Eyes) Capsule 1 CAP PO ×2 (09:19→22:10)
[2023-08-21] MEDS: Tolterodine Tartrate 2 MG CAP.SA PO (09:19)
[2023-08-21] MEDS: Spironolactone 25 MG Tablet 12.5 MG PO (09:19)
[2023-08-21 09:20] VITALS: BP 164/67; PULSE 59
[2023-08-21] MEDS: Cholecalciferol (Vit D3) 125 MCG CAPSULE (5,000 UNITS) PO (09:20)
[2023-08-21] MEDS: Isosorbide Mononitrate 60 MG Tablet PO (09:20)
[2023-08-21] MEDS: Metoprolol Tartrate 50 MG Tablet PO ×2 (09:20→22:10)
[2023-08-21] MEDS: Cefdinir 300 MG Capsule PO ×2 (09:20→22:10)
[2023-08-21] MEDS: Acyclovir 800 MG Tablet PO ×2 (09:21→22:10)
[2023-08-21] MEDS: Gabapentin 300 MG Capsule PO ×2 (09:22→22:19)
[2023-08-21] MEDS: Menthol/Lanolin/Calamine/Znox 113 GM Tube 1 APPLIC TOPICAL ×2 (09:25→22:21)
[2023-08-21] MEDS: Nystatin Powder 15gm Bottle 1 APPLIC TOPICAL ×2 (09:26→22:21)
[2023-08-21 09:28] VITALS: BP 164/67; PULSE 59
[2023-08-21 14:07] LABS: Bedside Glucose 126 mg/dL (74-106)
[2023-08-21 14:50] VITALS: PULSE 57; RESP 16; O2SAT 94
[2023-08-21 14:59] VITALS: BP 125/59; PULSE 61; RESP 14; TEMP 36.3; O2SAT 96
--- NOTE | 2023-08-21 18:31 | NURSING ---
PT SLIGHTLY CONFUSED THIS MORNING BUT WOULD TALK AND TOOK MEDS. PT WANTED TO TALK TO SISTER,DIALED PHONE FOR PT. AT LUNCH TIME PT MORE CONFUSED AND COULD NOT FINISH SENTENCES AND WOULD TALK LOW AND MUMBLE. PT SISTER STATED THAT SHE HAD A FULL CONVERSATION WITH PT ON THE PHONE. SPEECH THERAPY IN ROOM,PT WOULD NOT WORK WITH HER AND THIS NURSE TRIED TO GIVE PT A MED AND PT THREW IT DOWN ON TABLE. PT FINALLY TOOK MED AFTER ENCOURAGEMENT FROM SPEECH THERAPY,PT SEEMED AGITATED. CHECKED PT BLOOD SUGAR,126. PT DID WORK WITH THERAPY AND NO REPORTS OF ANY PROBLEMS. AT SUPPER PT TALKED MORE CLEAR AND EVENED SMILED AT THIS NURSE. PT DID REFUSE SUPPER STATING SHE WAS NOT HUNGARY, BUT DID DRINK GLUCERNA AND TOOK HER MEDS. RN AWARE
[2023-08-21 22:10] VITALS: BP 130/61; PULSE 62
[2023-08-21] MEDS: DULoxetine Hcl 30 MG Capsule PO (22:10)
[2023-08-21] MEDS: Atorvastatin Calcium 20 MG Tablet PO (22:11)
--- NOTE | 2023-08-21 22:19 | NURSING ---
Patient presents as agitated with med pass AEB furrowed brow, states I'm not taking them, patient confused, attempt to educate on importance of medication compliance, patient attempts to grab meds from this nurse's hand, yells just give them to me!. 1:1 provided and effective, patient accepts medications at this time. Repositioned in bed to promote comfort. Call light in reach.
--- NOTE | 2023-08-22 03:01 | NURSING ---
Addendum entered by Tyler Brasher 08/22/23 03:04: Written communication left for Dr. Almanza Original Note: Patient presents as restless/agitated at times, removing clothing. Confused. Sitting in common area with staff supervision per request. Call funez within reach. IV fluids infusing per order.
[2023-08-22] MEDS: 0.9% Normal Saline (1000mL) 1,000 ML 75 ML IV ×2 (04:15→17:23)
[2023-08-22 05:09] VITALS: PULSE 66; RESP 18; O2SAT 98
[2023-08-22] MEDS: Furosemide 40 MG Tablet PO ×2 (05:40→14:04)
[2023-08-22] MEDS: Levothyroxine 50 MCG Tablet PO (05:40)
[2023-08-22 09:33] LABS: International Normalized Ratio 1.4
--- NOTE | 2023-08-22 09:42 | PRO.PCM_ITS ---
Procedure Report Date of Procedure: 08/22/23 Assessment & Plan Assessment/Plan (1) Poor venous access: PLAN: Midline insertion in right upper extremity: Patient identity was verified with two patient identifiers. Hands were sanitized. The patient was positioned supine with right arm at 90 degrees. The patient's upper arm vasculature was assessed using ultrasound, and the right brachial vein was externally marked. An external measurement was obtained of 12 cm. Cap, mask, and prep gloves were donned. The underdrape was placed under the patient's arm. The site was prepped with chlorhexidine, and tourniquet was loosely applied. Prep gloves were discarded, and hands were sanitized. The sterile kit was opened with additional supplies dropped in. Sterile gown and gloves were donned, and the patient was draped. The sterile kit was assembled with all needle, introducer, connector, and catheter flushed with sterile normal saline. The marked site of insertion was anesthetized with 1% lidocaine. Patient tolerated well. The right brachial vein was then accessed using ultra sound guidance and guidewire was inserted to safety albaro. The tourniquet was released. The access needle was removed while securing the guidewire in place. The site was again anesthetized with 1% lidocaine, prior to insertion of introducer sheath and dilator. Patient tolerated well. The catheter was trimmed to a length of 12 cm, and again flushed with sterile normal saline. The catheter was then inserted through the introducer sheath, slowly. There was no resistance on insertion. The introducer sheath was retracted and peeled away, incrementally, while keeping the catheter secured. The catheter was fully inserted leaving 0 cm external. Blood return was verified and flushed needless connector was attached. The midline was flushed with sterile normal saline in a pulsatile fashion and clamped. Total sterile flushes used for the insertion was to 10 ml syringes, one from the kit. Finally, the insertion site was cleaned with chlorhexidine, and the catheter was secured using a StatLock. The site was covered with a Tegaderm CHG Dressing. Baseline arm circumference was obtained at the insertion site and measured 27 cm. The nursing staff is aware that the midline is ready for use. REF: [id number] LOT: [id number] Procedures Radiology Radiology Access Procedures: MIDL
[2023-08-22 10:04] VITALS: BP 176/72; PULSE 61; RESP 17; TEMP 36.7; O2SAT 96
[2023-08-22] MEDS: Menthol/Lanolin/Calamine/Znox 113 GM Tube 1 APPLIC TOPICAL ×2 (10:07→21:11)
[2023-08-22] MEDS: Spironolactone 25 MG Tablet 12.5 MG PO (10:07)
[2023-08-22 10:08] VITALS: PULSE 61
[2023-08-22] MEDS: Nystatin Powder 15gm Bottle 1 APPLIC TOPICAL ×2 (10:08→21:12)
[2023-08-22] MEDS: Isosorbide Mononitrate 60 MG Tablet PO (10:08)
[2023-08-22] MEDS: Multivitamin (Healthy Eyes) Capsule 1 CAP PO ×2 (10:08→21:14)
[2023-08-22] MEDS: Tolterodine Tartrate 2 MG CAP.SA PO (10:08)
[2023-08-22] MEDS: Metoprolol Tartrate 50 MG Tablet PO ×2 (10:08→21:15)
[2023-08-22] MEDS: DULoxetine Hcl 60 MG Capsule PO (10:08)
[2023-08-22] MEDS: Acyclovir 800 MG Tablet PO (10:09)
[2023-08-22] MEDS: Cefdinir 300 MG Capsule PO ×2 (10:09→21:16)
[2023-08-22] MEDS: Cyanocobalamin 500 MCG Tablet 1000 MCG PO (10:09)
[2023-08-22] MEDS: Cholecalciferol (Vit D3) 125 MCG CAPSULE (5,000 UNITS) PO (10:09)
[2023-08-22] MEDS: Gabapentin 300 MG Capsule PO ×2 (10:12→21:19)
[2023-08-22] MEDS: Glucerna Shake 120 ML LIQUID PO ×3 (10:13→17:24)
[2023-08-22 14:00] VITALS: BP 142/79; PULSE 60
--- NOTE | 2023-08-22 14:38 | NURSING ---
Call from Dr. Dang's office about acyclovir, they say patient should have treatment, doesn't need to be on any longer. DC'd med and removed from home med list.
[2023-08-22] MEDS: 0.9% Saline Lock 10 ML Syringe IV ×2 (15:05→21:20)
--- NOTE | 2023-08-22 15:14 | CASEMGMT ---
Social Work SW met with pt and her sister Anamika Piper. Pt is sleeping in chair. Anamika explains that pt has not been able to interact with staff all day and that yesterday pt was able to make some words but they were non sensical. Pt recently had a fall at home and hit her head. Prior to fall pt was living at home and her great nephew lived with her. Pt was independent in all care needs except cooking which her nephew did. RODRIGUEZ confirmed demographics with Anamika and explained Medicare benefit. Pt does have a medical alert and is currently receiving services from the [facility]. Discharge plan is undetermined at this time as it is dependent on pt's medical status. Emotional support provided to pt's sister. RODRIGUEZ will continue to follow. SHERLEY Amos
[2023-08-22] MEDS: Atorvastatin Calcium 20 MG Tablet PO (21:14)
[2023-08-22] MEDS: DULoxetine Hcl 30 MG Capsule PO (21:14)
[2023-08-22 21:15] VITALS: BP 157/58; PULSE 60
[2023-08-22 22:03] VITALS: BP 157/58; PULSE 60
[2023-08-23] MEDS: Levothyroxine 50 MCG Tablet PO (05:42)
[2023-08-23] MEDS: Furosemide 40 MG Tablet PO ×2 (05:42→13:57)
[2023-08-23] MEDS: 0.9% Normal Saline (1000mL) 1,000 ML 75 ML IV ×2 (05:47→19:13)
[2023-08-23 08:50] LABS: International Normalized Ratio 1.4
[2023-08-23] MEDS: Spironolactone 25 MG Tablet 12.5 MG PO (10:43)
[2023-08-23] MEDS: Cefdinir 300 MG Capsule PO ×2 (10:44→21:52)
[2023-08-23] MEDS: Cholecalciferol (Vit D3) 125 MCG CAPSULE (5,000 UNITS) PO (10:45)
[2023-08-23] MEDS: Isosorbide Mononitrate 60 MG Tablet PO (10:45)
[2023-08-23] MEDS: DULoxetine Hcl 60 MG Capsule PO (10:46)
[2023-08-23] MEDS: Tolterodine Tartrate 2 MG CAP.SA PO (10:46)
[2023-08-23] MEDS: Cyanocobalamin 500 MCG Tablet 1000 MCG PO (10:46)
[2023-08-23] MEDS: Multivitamin (Healthy Eyes) Capsule 1 CAP PO ×2 (10:46→21:50)
[2023-08-23 10:47] VITALS: PULSE 58
[2023-08-23] MEDS: Menthol/Lanolin/Calamine/Znox 113 GM Tube 1 APPLIC TOPICAL ×2 (10:55→21:45)
[2023-08-23] MEDS: Nystatin Powder 15gm Bottle 1 APPLIC TOPICAL ×2 (10:56→21:51)
[2023-08-23] MEDS: Gabapentin 300 MG Capsule PO ×2 (10:56→21:54)
[2023-08-23 16:00] VITALS: BP 164/65; PULSE 98; RESP 22; TEMP 36.2; O2SAT 98
[2023-08-23] MEDS: WARFARIN 5.5 MG PO (16:38)
[2023-08-23] MEDS: DULoxetine Hcl 30 MG Capsule PO (21:49)
[2023-08-23 21:50] VITALS: BP 160/70; PULSE 61
[2023-08-23] MEDS: Atorvastatin Calcium 20 MG Tablet PO (21:50)
[2023-08-23] MEDS: Metoprolol Tartrate 50 MG Tablet PO (21:50)
[2023-08-23 22:00] VITALS: BP 160/70; PULSE 61; PULSE 66; O2SAT 96
[2023-08-24] MEDS: Levothyroxine 50 MCG Tablet PO (05:47)
[2023-08-24] MEDS: Furosemide 40 MG Tablet PO ×2 (05:47→13:39)
[2023-08-24 06:51] LABS: International Normalized Ratio 1.6; Prothrombin Time (Protime)PT. 18.9 SECONDS (11.7-14.9)
[2023-08-24 07:54] VITALS: O2SAT 99
--- NOTE | 2023-08-24 07:55 | NURSING ---
Addendum entered by Amy Perez 08/24/23 09:17: Dr. Almanza Notified N.O. received to discontinue IV normal saline Chest xray and 40mg IV Lasix x1 dose. Orders read back. Original Note: Alarm sounds and several staff enter room almost immediately. Resident dangling on the edge of the bed and audible wheezing noted. Skin pink/pale, warm, and dry. Respirations even and unlabored. Lungs w/ expiratory wheezes posterior to b/l upper lobes. Fine crackles and diminished sounds noted to left base. Course crackles and expiratory wheezing noted to rt base. SpO2 97-99% on room air. IVF stopped at this time. Staff to continue to monitor.
--- NOTE | 2023-08-24 08:15 | RAD_ITS ---
INDICATION: SOB, Fine Crackles noted to Left Lower lobe. EXAMINATION/TECHNIQUE: X-RAY - XR Chest 2 Views COMPARISON: Prior study dated: 08/20/2023 FINDINGS: LINES/DEVICES: Dual-chamber left-sided cardiac pacer device in stable position. LUNGS: Right lower lung infiltrate increases previous exam. Small right pleural effusion. MEDIASTINUM AND CARDIOVASCULAR STRUCTURES: Stable cardiomediastinal silhouette. BONES AND SOFT TISSUES: Unchanged. RAD/Chest PA and Lateral IMPRESSION: Right lower lung infiltrate increased since the previous exam could be due to superimposed pneumonia. Small right pleural effusion. Electronically Signed: Ethan Montesinos MD at 9:48 EDT ,
[2023-08-24 08:30] VITALS: PULSE 65; RESP 22; O2SAT 97
[2023-08-24] MEDS: Tolterodine Tartrate 2 MG CAP.SA PO (08:36)
[2023-08-24] MEDS: Cyanocobalamin 500 MCG Tablet 1000 MCG PO (08:36)
[2023-08-24] MEDS: DULoxetine Hcl 60 MG Capsule PO (08:36)
[2023-08-24] MEDS: Spironolactone 25 MG Tablet 12.5 MG PO (08:37)
[2023-08-24] MEDS: Multivitamin (Healthy Eyes) Capsule 1 CAP PO ×2 (08:37→20:49)
[2023-08-24] MEDS: Cholecalciferol (Vit D3) 125 MCG CAPSULE (5,000 UNITS) PO (08:39)
[2023-08-24] MEDS: Isosorbide Mononitrate 60 MG Tablet PO (08:40)
[2023-08-24] MEDS: Cefdinir 300 MG Capsule PO ×2 (08:40→20:52)
[2023-08-24] MEDS: Nystatin Powder 15gm Bottle 1 APPLIC TOPICAL ×2 (08:42→20:50)
[2023-08-24] MEDS: Menthol/Lanolin/Calamine/Znox 113 GM Tube 1 APPLIC TOPICAL ×2 (08:43→20:47)
[2023-08-24] MEDS: Gabapentin 300 MG Capsule PO ×2 (08:44→20:53)
[2023-08-24 08:55] VITALS: BP 162/69; PULSE 60
[2023-08-24] MEDS: Metoprolol Tartrate 50 MG Tablet PO ×2 (08:55→20:49)
[2023-08-24 08:59] VITALS: BP 162/69; PULSE 60; RESP 22; TEMP 36.2; O2SAT 94
[2023-08-24] MEDS: Furosemide 40 MG/4 ML Vial IV (09:07)
[2023-08-24] MEDS: levoFLOXacin IV 750 MG/150 ML BAG 100 MG IV (11:27)
[2023-08-24] MEDS: Glucerna Shake 120 ML LIQUID PO ×2 (12:00→17:51)
[2023-08-24] MEDS: WARFARIN 5.5 MG PO (17:50)
[2023-08-24 20:49] VITALS: BP 149/62; PULSE 60
[2023-08-24] MEDS: Atorvastatin Calcium 20 MG Tablet PO (20:49)
[2023-08-24] MEDS: DULoxetine Hcl 30 MG Capsule PO (20:49)
[2023-08-24] MEDS: 0.9% Saline Lock 10 ML Syringe IV (20:52)
[2023-08-24 21:01] VITALS: BP 149/62; PULSE 60
[2023-08-25] MEDS: Levothyroxine 50 MCG Tablet PO (05:48)
[2023-08-25] MEDS: Furosemide 40 MG Tablet PO ×2 (05:48→13:27)
[2023-08-25 06:45] LABS: International Normalized Ratio 1.9; Prothrombin Time (Protime)PT. 22.1 SECONDS (11.7-14.9)
[2023-08-25] MEDS: Glucerna Shake 120 ML LIQUID PO ×3 (08:37→18:06)
[2023-08-25] MEDS: Spironolactone 25 MG Tablet 12.5 MG PO (08:37)
[2023-08-25] MEDS: Cefdinir 300 MG Capsule PO ×2 (08:39→22:05)
[2023-08-25] MEDS: Cyanocobalamin 500 MCG Tablet 1000 MCG PO (08:39)
[2023-08-25] MEDS: Isosorbide Mononitrate 60 MG Tablet PO (08:39)
[2023-08-25] MEDS: Multivitamin (Healthy Eyes) Capsule 1 CAP PO ×2 (08:39→22:04)
[2023-08-25] MEDS: Tolterodine Tartrate 2 MG CAP.SA PO (08:39)
[2023-08-25] MEDS: DULoxetine Hcl 60 MG Capsule PO (08:39)
[2023-08-25] MEDS: Cholecalciferol (Vit D3) 125 MCG CAPSULE (5,000 UNITS) PO (08:40)
[2023-08-25] MEDS: Gabapentin 300 MG Capsule PO ×2 (08:43→22:02)
[2023-08-25] MEDS: Nystatin Powder 15gm Bottle 1 APPLIC TOPICAL ×2 (08:43→22:02)
[2023-08-25] MEDS: Menthol/Lanolin/Calamine/Znox 113 GM Tube 1 APPLIC TOPICAL ×2 (08:43→22:03)
[2023-08-25 08:44] VITALS: BP 151/55; PULSE 59
[2023-08-25] MEDS: Metoprolol Tartrate 50 MG Tablet PO ×2 (08:44→22:05)
--- NOTE | 2023-08-25 11:00 | WOUNDNOTE ---
wound photo: right lateral ankle
[2023-08-25] MEDS: 0.9% Saline Lock 10 ML Syringe IV (13:27)
--- NOTE | 2023-08-25 14:13 | NURSING ---
Kandy with pre-op calls unit regarding whether patient and family decided to have botox injection done with Dr. Campuzano. She is made aware that family was agreeable and she asks for name and number of family member to contact to set up, which is provided.
[2023-08-25 14:29] VITALS: BP 149/62; PULSE 61; RESP 16; TEMP 36.2; O2SAT 99
[2023-08-25] MEDS: WARFARIN 5.5 MG PO (18:06)
[2023-08-25] MEDS: DULoxetine Hcl 30 MG Capsule PO (22:03)
[2023-08-25 22:05] VITALS: BP 169/65; PULSE 60
[2023-08-25] MEDS: Atorvastatin Calcium 20 MG Tablet PO (22:05)
[2023-08-25 23:25] VITALS: PULSE 60; RESP 20; O2SAT 99
[2023-08-26] MEDS: Furosemide 40 MG Tablet PO ×2 (05:54→14:07)
[2023-08-26] MEDS: 0.9% Saline Lock 10 ML Syringe IV ×2 (05:55→09:24)
[2023-08-26] MEDS: Levothyroxine 50 MCG Tablet PO (05:55)
[2023-08-26 06:00] VITALS: PULSE 66; RESP 18; O2SAT 95
[2023-08-26 06:35] LABS: International Normalized Ratio 2.4; Prothrombin Time (Protime)PT. 26.1 SECONDS (11.7-14.9)
[2023-08-26 09:06] VITALS: BP 168/71; PULSE 61; RESP 18; TEMP 36.6; O2SAT 98
[2023-08-26] MEDS: Glucerna Shake 120 ML LIQUID PO ×2 (09:08→17:01)
[2023-08-26] MEDS: Menthol/Lanolin/Calamine/Znox 113 GM Tube 1 APPLIC TOPICAL ×2 (09:09→20:11)
[2023-08-26] MEDS: Spironolactone 25 MG Tablet 12.5 MG PO (09:09)
[2023-08-26 09:10] VITALS: PULSE 61
[2023-08-26] MEDS: Multivitamin (Healthy Eyes) Capsule 1 CAP PO ×2 (09:10→20:06)
[2023-08-26] MEDS: Isosorbide Mononitrate 60 MG Tablet PO (09:10)
[2023-08-26] MEDS: Metoprolol Tartrate 50 MG Tablet PO ×2 (09:10→20:05)
[2023-08-26] MEDS: Tolterodine Tartrate 2 MG CAP.SA PO (09:10)
[2023-08-26] MEDS: DULoxetine Hcl 60 MG Capsule PO (09:10)
[2023-08-26] MEDS: Nystatin Powder 15gm Bottle 1 APPLIC TOPICAL ×2 (09:10→20:10)
[2023-08-26] MEDS: Cholecalciferol (Vit D3) 125 MCG CAPSULE (5,000 UNITS) PO (09:11)
[2023-08-26] MEDS: Cyanocobalamin 500 MCG Tablet 1000 MCG PO (09:11)
[2023-08-26] MEDS: Gabapentin 300 MG Capsule PO ×2 (09:12→20:05)
[2023-08-26] MEDS: levoFLOXacin IV 750 MG/150 ML BAG 100 MG IV (09:21)
[2023-08-26] MEDS: 0.9% Normal Saline (250mL Bag) 250 ML 15 ML IV (09:21)
[2023-08-26 09:24] VITALS: BMI 25.2
[2023-08-26 10:08] VITALS: BP 147/65; PULSE 61
--- NOTE | 2023-08-26 10:12 | NURSING ---
Patient has been confused, discussed covid vaccine with sister. She does not want patient to have at this time, said Dr. Dang said not to get another dose.
[2023-08-26 14:03] VITALS: BP 136/46
--- NOTE | 2023-08-26 14:32 | CASEMGMT ---
Social Work SW met with patient at bedside to complete MDS. Patient completed BIM (06/26) and PhQ-2 () SW discussed patient social supports. Patient informed SW that she resides in home alone with some family support. SW anticipates discharge planning with family. PONCHO Bobby
[2023-08-26 20:05] VITALS: BP 144/61; PULSE 62
[2023-08-26] MEDS: Atorvastatin Calcium 20 MG Tablet PO (20:06)
[2023-08-26] MEDS: DULoxetine Hcl 30 MG Capsule PO (20:10)
[2023-08-27] MEDS: Furosemide 40 MG Tablet PO ×2 (05:13→13:18)
[2023-08-27] MEDS: Levothyroxine 50 MCG Tablet PO (05:13)
[2023-08-27 06:05] LABS: Absolute Lymphocyte Count 1.11 X10^3/uL (0.83-4.51); Absolute Neutrophil Count 8.6 X10^3/uL (2.0-7.7); Basophil# 0.01 X10^3/uL; Basophil% 0.1 % (0-1); Eosinophil# 0.07 X10^3/uL; Eosinophils% 0.6 % (0-5); Hematocrit 39.6 % (37-47); Hemoglobin 12.8 g/dL (12.0-15.0); Lymphocyte # 1.11 X10^3/ul (0.83-4.51); Mean Corp Hgb Conc 32.3 g/dL (32-36); Mean Corpuscular Hgb 30.5 pg (27.0-32.0); Mean Corpuscular Volume 94.3 fL (81-99); Monocyte# 1.25 X10^3/uL; Monocyte% 11.3 % (0-10); NRBC Flagged by Analyzer 0 % (0-5); Neutrophil # 8.59 X10^3/uL (2.7-7.7); Neutrophil % 77.3 % (47-70); Platelet Count 259 K/mm3 (150-450); RBC Distribution Width CV 13.6 % (11.6-14.6); RBC Distribution Width SD 46.6 fl (35.1-43.9); White Blood Count 11.1 K/mm3 (4.4-11.0)
[2023-08-27 06:17] LABS: International Normalized Ratio 2.4; Prothrombin Time (Protime)PT. 26.1 SECONDS (11.7-14.9)
[2023-08-27 06:51] LABS: Anion Gap 7 (5-15); BUN 20 mg/dL (7-18); BUN/Creat Ratio 14.8 RATIO (10-20); Calcium,Total 9.2 mg/dL (8.5-10.1); Chloride 102 mmol/L (98-107); Creatinine, Serum 1.35 mg/dL (0.55-1.02); EST Glomerular Filtration Rate 39 mL/min (>60); Est Glom Filt Rate - Afr Amer 48 mL/min (>60); Estimated Creatinine Clearance 28.55 ml/min; Glucose 129 mg/dL (74-106); Potassium 3.6 mmol/L (3.5-5.1); Sodium Level 137 mmol/L (136-145)
--- NOTE | 2023-08-27 08:38 | NURSING ---
Proofsheet Corrector Note; MDS for 08/26/2023 Complete
--- NOTE | 2023-08-27 09:08 | CASEMGMT ---
Social Work IDT met with patient, nieceJenny, and siblings. Discussed patient progress with therapy (PT/OT/ST), dietary, and activities. Per family, the patient is not enjoying the diet or food. Patient is currently on mechanical soft. Patient's diet to be advanced at this time. Family is concerned about patient ability Patient's cognitive evaluation shows intervals of changing mentation. Per ST, patient scored 22/50 on B-Cat. Patient continues to require assistance with ambulation and transfers with therapy. Patient is max A for lower extremity assistance and bathing. Patient will require continued therapy for rehabilitation. Family is requesting adjustment in therapy schedule to assist with patient recovery time. Therapy is recommending 24/hr care in home or regional intermodal truck driver care. SW educated patient family of Medicare coverage and benefits. SW discussed transition of care plans. Patient's family is aware that the patient is unable to transition back home. Patient's niece, Jenny will be point of contact for family. Jenny informed SW that the patient will require long-term placement for regional intermodal truck driver care. Jenny is requesting for placement [place]. RODRIGUEZ will provide electronic long-term list with preferred geographic location, medical needs, and insurance network via [employer]. RODRIGUEZ will continue to follow to assist with discharge planning. PONCHO Bobby
[2023-08-27] MEDS: Glucerna Shake 120 ML LIQUID PO ×3 (10:11→17:36)
[2023-08-27] MEDS: DULoxetine Hcl 60 MG Capsule PO (10:12)
[2023-08-27] MEDS: Multivitamin (Healthy Eyes) Capsule 1 CAP PO ×2 (10:12→22:23)
[2023-08-27] MEDS: Spironolactone 25 MG Tablet 12.5 MG PO (10:12)
[2023-08-27] MEDS: Isosorbide Mononitrate 60 MG Tablet PO (10:12)
[2023-08-27] MEDS: Tolterodine Tartrate 2 MG CAP.SA PO (10:12)
[2023-08-27 10:13] VITALS: BP 142/62; PULSE 59
[2023-08-27] MEDS: Metoprolol Tartrate 50 MG Tablet PO ×2 (10:13→22:23)
[2023-08-27] MEDS: Tuberculin,Purif.prot.deriv. 50 TU/ML Vial 0.1 ML ID (10:15)
[2023-08-27] MEDS: Gabapentin 300 MG Capsule PO ×2 (10:16→22:23)
[2023-08-27] MEDS: Nystatin Powder 15gm Bottle 1 APPLIC TOPICAL ×2 (10:23→22:24)
[2023-08-27] MEDS: Menthol/Lanolin/Calamine/Znox 113 GM Tube 1 APPLIC TOPICAL ×2 (10:23→22:24)
[2023-08-27] MEDS: Cyanocobalamin 500 MCG Tablet 1000 MCG PO (10:25)
[2023-08-27] MEDS: Cholecalciferol (Vit D3) 125 MCG CAPSULE (5,000 UNITS) PO (10:25)
--- NOTE | 2023-08-27 15:37 | NURSING ---
Return from appt with Dr. Foster with [facility]. Sister reports patient does not need to continue to F/U and no F/U appt.
[2023-08-27 16:00] VITALS: BP 142/62; PULSE 59; RESP 18; TEMP 36.4; O2SAT 97
[2023-08-27 22:23] VITALS: BP 146/59; PULSE 60
[2023-08-27] MEDS: DULoxetine Hcl 30 MG Capsule PO (22:23)
[2023-08-27] MEDS: Atorvastatin Calcium 20 MG Tablet PO (22:24)
[2023-08-27 23:03] VITALS: PULSE 60; RESP 16; O2SAT 95
[2023-08-28] MEDS: Furosemide 40 MG Tablet PO ×2 (05:29→12:43)
[2023-08-28] MEDS: Levothyroxine 50 MCG Tablet PO (05:29)
[2023-08-28 05:36] VITALS: BP 137/55; PULSE 59
[2023-08-28 07:55] LABS: International Normalized Ratio 2.8
[2023-08-28 08:23] VITALS: BP 138/54; PULSE 61; RESP 16; TEMP 36.5; O2SAT 99
[2023-08-28] MEDS: Glucerna Shake 120 ML LIQUID PO ×3 (08:24→18:05)
[2023-08-28] MEDS: Menthol/Lanolin/Calamine/Znox 113 GM Tube 1 APPLIC TOPICAL ×2 (08:25→22:10)
[2023-08-28 08:26] VITALS: PULSE 61
[2023-08-28] MEDS: Tolterodine Tartrate 2 MG CAP.SA PO (08:26)
[2023-08-28] MEDS: Isosorbide Mononitrate 60 MG Tablet PO (08:26)
[2023-08-28] MEDS: DULoxetine Hcl 60 MG Capsule PO (08:26)
[2023-08-28] MEDS: Cyanocobalamin 500 MCG Tablet 1000 MCG PO (08:26)
[2023-08-28] MEDS: Multivitamin (Healthy Eyes) Capsule 1 CAP PO ×2 (08:26→22:12)
[2023-08-28] MEDS: Metoprolol Tartrate 50 MG Tablet PO ×2 (08:26→22:13)
[2023-08-28] MEDS: Cholecalciferol (Vit D3) 125 MCG CAPSULE (5,000 UNITS) PO (08:26)
[2023-08-28] MEDS: Spironolactone 25 MG Tablet 12.5 MG PO (08:26)
[2023-08-28] MEDS: Nystatin Powder 15gm Bottle 1 APPLIC TOPICAL ×2 (08:27→22:13)
[2023-08-28] MEDS: Gabapentin 300 MG Capsule PO ×2 (08:31→22:24)
--- NOTE | 2023-08-28 12:04 | NURSING ---
Addendum entered by Anabela Lopez 08/28/23 12:49: Pt returns to unit ~1215. Original Note: Staff assists pt off unit for modified barium swallow ~1200.
[2023-08-28] MEDS: levoFLOXacin IV 750 MG/150 ML BAG 100 MG IV (12:39)
[2023-08-28] MEDS: 0.9% Saline Lock 10 ML Syringe IV ×2 (12:43→22:24)
--- NOTE | 2023-08-28 13:00 | SP.MBSS_ITS ---
Modified Barium Swallow Patient Information Study Date: 08/28/23 Study Time: 12:00 Direct Billable Minutes: 106 Total Minutes procedure & reportin Diagnosis: Debility R53.81 Referring Physician: Roberto Almanza Chi Reason for Referral: Objectively assess swallow function, assess risk for aspiration, and determine recommendations for least restrictive diet textures and compensatory strategies to improve safety of swallow. Medical History: The patient is a 87 F with multiple comorbidities on medications including warf caitie for chronic A-fib who presented to [facility] w/ mechanical fall, closed head injury, complicated by NPH. She was admitted to TCU on 08/19/23 w/ debility following fall. ST initially consulted for cognitive assessment. Patient developed delirium/increased confusion compared to bL, however UA + for E. coli. She received 3 doses of IV Rocephin today and will continue on cefdinir for another 3 days as her E. coli was sensitive for Rocephin. BSE completed during TCU stay recommending minced and moist textures / thin liquids with total feed. Patient had improved alertness in session on 08/25/23 and tolerated diet well at bedside with APARTMENT HOUSE MANAGER; however, 08/27/23 chest xray revealed, Right lower lung infiltrate increased since the previous exam could be due to superimposed pneumonia. Small right pleural effusion. She was referred for MBSS due to concerns for aspiration. 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 PER TRIAL): PENETRATION / ASPIRATION SCALE (SHAHID): 1 = does not enter airway 2 = enters airway/above vocal folds/ejected 3 = enters airway/above vocal folds/not ejected 4 = enters airway/contacts vocal folds/ejected 5 = enters airway/contacts vocal folds/not ejected 6 = enters airway/below vocal folds/ejected 7 = enters airway/below vocal folds/not ejected despite effort 8 = enters airway/below vocal folds/no effort VIDEOFLOROSCOPIC SCALE SCORE (SHAHID): Grade I = aspiration of material that has penetrated into the laryngeal vestibule, intact cough reflex Grade II = aspiration < 10 % of the bolus, intact cough reflex Grade III = aspiration of < 10 % of the bolus, reduced cough reflex or aspiration of > 10 % of the bolus, intact cough reflex Grade IV = aspiration of > 10 % of the bolus, reduced cough reflex Penetration-Aspiration Scale Score Thin Liquid via teaspoon: Result: 2= enter airway/above vocal folds/ejected Thin Liquid via teaspoon Trial 2: Result: 1= does not enter airway Thin Liquid via large single sip: cup: Result: 3= enters airways/above vocal folds/not ejected Boronda Thick Liquid via sequential sips: cup: Result: 8= enters airway/below vocal folds/no effort Honey Thick Liquid via teaspoon: Result: 7= enters airways/below vocal folds/not ejected despite effort Comment: Cued cough and re-swallow = not effective. PAS of 1 after the initial swallow, PAS of 7 after cough and re-swallow was cued. Pudding via teaspoon: Result: 1= does not enter airway Thin Liquid via teaspoon Trial 3: Result: 5= enters airways/contacts vocal folds/not ejected 1/4 Cookie: Result: 1= does not enter airway Boronda Thick Liquid via small single sip: cup: Result: 2= enter airway/above vocal folds/ejected Comment: Cued cough and re-swallow = effective. Boronda Thick Liquid via small single sip: cup Trial 2: Result: 1= does not enter airway Thin Liquid via small single sip: cup: Result: 8= enters airway/below vocal folds/no effort Thin Liquid via single sip: straw: Result: 5= enters airways/contacts vocal folds/not ejected Comment: Cued cough and re-swallow = somewhat effective. Thin Liquid via small single sip: cup Effortful swallow: Result: 8= enters airway/below vocal folds/no effort Comment: Cued cough and re-swallow = somewhat effective. Thin Liquid via teaspoon Chin tuck: Result: 5= enters airways/contacts vocal folds/not ejected Comment: Poor execution of chin tuck. Cued cough and re-swallow = somewhat effective. Boronda Thick Liquid via small single sip: cup Trial 3: Result: 2= enter airway/above vocal folds/ejected Oral Phase Labial Seal: Interlabial escape, no progression to anterior lip Tongue Control During Bolus Hold: Escape to lateral buccal cavity/floor of mouth Bolus Preparation/Mastication: Disorganized chewing/mashing with solid pieces of bolus unchewed Bolus Transport/Lingual Motion: Repetitive/disorganized tongue motion Oral Residue: Residue collection on oral structures Pharyngeal Phase Initiation of Pharyngeal Swallow: Bolus head at posterior laryngeal surgace of epiglottis Soft Palate Elevation: Trace column of contrast/air between soft palate and pharyngeal wall Laryngeal Elevation: Partial superior movement thyroid cart/partial apprx aryt- epig petiole Anterior Hyoid Excursion: Complete anterior movement Epiglottic Movement: Complete inversion Laryngeal Vestibule Closure at Height of Swallow: Incomplete; narrow column of air/contrast in laryngeal vestibule Pharyngeal Stripping Wave: Present - diminished Pharyngoesophageal Segment Opening: Complete distension and complete duration; no obstruction of flow Tongue Base Retraction: Narrow column of contrast between tongue base & post. pharyngeal wall Pharyngeal Residue: Collection of residue within or on pharyngeal structures Esophageal Phase Esophageal Clearance: Esophageal retention Diagnosis/Impression Diagnosis: Moderate oropharyngeal dysphagia R13.12 Impression: The oral phase is primarily marked by... -Decreased bolus control with <1/2 of the bolus spilling posteriorly to the pyriforms prior to swallow onset observed with thin liquids especially. -Disorganized tongue motion for A-P transport most notable with cookie and thin liquids. -Mild oral residue after the swallow, which mostly cleared with independent initiation of multiple swallows. -Decreased mastication with portion of the cookie un-chewed. The pharyngeal phase is primarily marked by... -Decreased airway closure during the swallow due to decreased laryngeal elevation. -Mildly decreased tongue base retraction and decreased pharyngeal stripping wave with resulting mild pharyngeal residues after the swallow. -SILENT aspiration of nectar/mildly thick liquids by sequential cup and thin liquids by cup. Deep laryngeal penetration of thin liquids to the vocal folds without full ejection. Use of cough and re-swallow was somewhat effective in decreasing aspiration risk with thin and mildly/nectar thick liquids. The esophageal phase is primarily marked by... -Mild esophageal retention of pudding in mid-upper esophagus with minimal improvement provided thin liquid wash. Recommendations Diet: Mechanical Soft Textures (Minced and moist textures - IDDSI Level 5) and Boronda-thick Liquids Comment: Medications whole with nectar/mildly thick liquids one at a time Compensatory Strategies: Small Bites, Small Sips (SILENT ASPIRATOR OF LARGE, SEQUENTIAL SIPS OF NECTAR/MILDLY THICK LIQUID), Slow Rate, Sitting upright and Remain sitting upright for 30 minutes after PO intake Supervision: 1:1 Close Supervision Recommend Repeat Modified Barium Swallow: Yes (1-3 weeks after implementation of oropharyngeal exercise program) Need for Skilled Speech Therapy Services: Yes Comment: -Train the patient in use of strategies to decrease risk for aspiration and reflux aspiration. -Ongoing assessment of diet tolerance of recommended textures. Monitor respiratory status closely. Consider implementation of FFWP if deemed clinically appropriate by treating APARTMENT HOUSE MANAGER. -Train the patient oropharyngeal exercise program to improve bolus control, airway closure, and pharyngeal motility (lingual resistance, lingual coor dination, Effortful breath hold and swallow, CTAR). Recommended Referrals: GI Consult (Mild esophageal retention. If concern for s/s of reflux, sensation of retention, or regurgitation, please consider GI consult.) Education Completed: 1. Described result of evaluation., 2. Pt understands evaluation & agrees with goals and treatment plan., 4. Family/caregivers understand evaluation & agree w/ goals & tx plan. and 7. Pt requires further education on strategies & risks. Comment: APARTMENT HOUSE MANAGER educated RN and SINGEING TORCH OPERATOR in recommendations and posted MBSS recommendations in the patient's room. Status Active ST Patient: Active Contact Information [facility]:: Opal Zavaleta M.A. [facility]-APARTMENT HOUSE MANAGER? Speech-Language Pathologist?? [facility] [address]?? [place] [address]?? [email or web address]?? [phone]
[2023-08-28 22:00] VITALS: BP 128/65; PULSE 63
[2023-08-28] MEDS: Atorvastatin Calcium 20 MG Tablet PO (22:12)
[2023-08-28] MEDS: DULoxetine Hcl 30 MG Capsule PO (22:12)
[2023-08-28 22:13] VITALS: BP 128/65; PULSE 63
[2023-08-29] MEDS: 0.9% Saline Lock 10 ML Syringe IV ×3 (05:17→22:44)
[2023-08-29] MEDS: Levothyroxine 50 MCG Tablet PO (05:18)
[2023-08-29] MEDS: Furosemide 40 MG Tablet PO ×2 (05:18→13:01)
[2023-08-29 06:38] LABS: International Normalized Ratio 3.1; Prothrombin Time (Protime)PT. 31.8 SECONDS (11.7-14.9)
[2023-08-29] MEDS: Glucerna Shake 120 ML LIQUID PO ×3 (10:18→17:23)
[2023-08-29] MEDS: Spironolactone 25 MG Tablet 12.5 MG PO (10:25)
[2023-08-29] MEDS: Menthol/Lanolin/Calamine/Znox 113 GM Tube 1 APPLIC TOPICAL ×2 (10:25→22:40)
[2023-08-29] MEDS: DULoxetine Hcl 60 MG Capsule PO (10:26)
[2023-08-29 10:27] VITALS: BP 140/57; PULSE 60
[2023-08-29] MEDS: Multivitamin (Healthy Eyes) Capsule 1 CAP PO ×2 (10:27→22:39)
[2023-08-29] MEDS: Metoprolol Tartrate 50 MG Tablet PO ×2 (10:27→22:41)
[2023-08-29] MEDS: Isosorbide Mononitrate 60 MG Tablet PO (10:27)
[2023-08-29] MEDS: Tolterodine Tartrate 2 MG CAP.SA PO (10:27)
[2023-08-29] MEDS: Nystatin Powder 15gm Bottle 1 APPLIC TOPICAL ×2 (10:27→22:40)
[2023-08-29] MEDS: Cholecalciferol (Vit D3) 125 MCG CAPSULE (5,000 UNITS) PO (10:28)
[2023-08-29] MEDS: Cyanocobalamin 500 MCG Tablet 1000 MCG PO (10:28)
[2023-08-29] MEDS: Gabapentin 300 MG Capsule PO ×2 (10:33→22:40)
[2023-08-29 10:39] VITALS: BP 140/57; PULSE 60
[2023-08-29 14:41] VITALS: BP 104/51; PULSE 60; RESP 16; TEMP 36.4; O2SAT 100
[2023-08-29] MEDS: Warfarin 2.5 MG, Warfarin 2 MG 4.5 MG PO (17:22)
[2023-08-29] MEDS: DULoxetine Hcl 30 MG Capsule PO (22:39)
[2023-08-29] MEDS: Atorvastatin Calcium 20 MG Tablet PO (22:39)
[2023-08-29 22:41] VITALS: BP 127/67; PULSE 60
[2023-08-30] MEDS: Furosemide 40 MG Tablet PO ×2 (05:42→13:11)
[2023-08-30] MEDS: Levothyroxine 50 MCG Tablet PO (05:42)
[2023-08-30 08:28] LABS: Prothrombin Time (Protime)PT. 38.6 SECONDS (11.7-14.9)
--- NOTE | 2023-08-30 09:56 | NURSING ---
Called Dr. Almanza with INR 4.0. New order to HOLD Coumadin and check daily INR.
[2023-08-30] MEDS: Glucerna Shake 120 ML LIQUID PO ×3 (10:43→18:00)
[2023-08-30] MEDS: Nystatin Powder 15gm Bottle 1 APPLIC TOPICAL ×2 (10:48→21:12)
[2023-08-30] MEDS: Menthol/Lanolin/Calamine/Znox 113 GM Tube 1 APPLIC TOPICAL ×2 (10:48→21:11)
[2023-08-30 10:49] VITALS: BP 139/68; PULSE 62
[2023-08-30] MEDS: Tolterodine Tartrate 2 MG CAP.SA PO (10:49)
[2023-08-30] MEDS: Isosorbide Mononitrate 60 MG Tablet PO (10:49)
[2023-08-30] MEDS: Metoprolol Tartrate 50 MG Tablet PO ×2 (10:49→21:11)
[2023-08-30] MEDS: Multivitamin (Healthy Eyes) Capsule 1 CAP PO ×2 (10:49→21:11)
[2023-08-30] MEDS: Cyanocobalamin 500 MCG Tablet 1000 MCG PO (10:50)
[2023-08-30] MEDS: Cholecalciferol (Vit D3) 125 MCG CAPSULE (5,000 UNITS) PO (10:50)
[2023-08-30] MEDS: DULoxetine Hcl 60 MG Capsule PO (10:50)
[2023-08-30] MEDS: Spironolactone 25 MG Tablet 12.5 MG PO (10:51)
[2023-08-30] MEDS: Gabapentin 300 MG Capsule PO ×2 (10:54→21:12)
[2023-08-30] MEDS: levoFLOXacin IV 750 MG/150 ML BAG 100 MG IV (11:21)
[2023-08-30 16:00] VITALS: BP 114/61; PULSE 62; RESP 16; TEMP 36.3; O2SAT 99
[2023-08-30 21:10] VITALS: BP 107/58; PULSE 80
[2023-08-30 21:11] VITALS: BP 107/58; PULSE 80
[2023-08-30] MEDS: Atorvastatin Calcium 20 MG Tablet PO (21:11)
[2023-08-30] MEDS: DULoxetine Hcl 30 MG Capsule PO (21:11)
[2023-08-30] MEDS: 0.9% Saline Lock 10 ML Syringe IV (21:12)
[2023-08-31] MEDS: Levothyroxine 50 MCG Tablet PO (05:53)
[2023-08-31] MEDS: Furosemide 40 MG Tablet PO ×2 (05:53→13:25)
--- NOTE | 2023-08-31 06:36 | NURSING ---
Lab staff member notified this nurse of a skin tear noted to L forearm. Upon assessment this nurse observed a 2.5cm x 1cm skin tear. Area cleansed with NS and adaptic, gauze, and gauze wrap applied. Pt stated she does not know how or when it happened. Pt is currently resting in bed and denies discomfort and further intervention at this time.
[2023-08-31 08:21] LABS: International Normalized Ratio 3.2; Prothrombin Time (Protime)PT. 32.6 SECONDS (11.7-14.9)
[2023-08-31 08:54] VITALS: BP 102/49; PULSE 58
[2023-08-31] MEDS: Spironolactone 25 MG Tablet 12.5 MG PO (08:54)
[2023-08-31] MEDS: Tolterodine Tartrate 2 MG CAP.SA PO (08:55)
[2023-08-31] MEDS: Multivitamin (Healthy Eyes) Capsule 1 CAP PO ×2 (08:55→23:11)
[2023-08-31] MEDS: Cyanocobalamin 500 MCG Tablet 1000 MCG PO (08:55)
[2023-08-31] MEDS: Isosorbide Mononitrate 60 MG Tablet PO (08:55)
[2023-08-31] MEDS: DULoxetine Hcl 60 MG Capsule PO (08:55)
[2023-08-31] MEDS: Cholecalciferol (Vit D3) 125 MCG CAPSULE (5,000 UNITS) PO (08:56)
[2023-08-31] MEDS: Nystatin Powder 15gm Bottle 1 APPLIC TOPICAL ×2 (08:56→23:11)
[2023-08-31] MEDS: Menthol/Lanolin/Calamine/Znox 113 GM Tube 1 APPLIC TOPICAL ×2 (08:56→23:11)
[2023-08-31] MEDS: Glucerna Shake 120 ML LIQUID PO ×2 (09:00→13:24)
[2023-08-31] MEDS: Gabapentin 300 MG Capsule PO ×2 (09:01→23:13)
[2023-08-31 14:36] VITALS: BP 137/58; PULSE 60; RESP 14; TEMP 36.2; O2SAT 97
[2023-08-31 22:55] VITALS: PULSE 62; O2SAT 98
[2023-08-31] MEDS: DULoxetine Hcl 30 MG Capsule PO (23:11)
[2023-08-31] MEDS: Atorvastatin Calcium 20 MG Tablet PO (23:11)
[2023-08-31 23:16] VITALS: BP 144/50; PULSE 62
[2023-08-31] MEDS: Metoprolol Tartrate 50 MG Tablet PO (23:16)
[2023-08-31 23:55] VITALS: BP 144/50; PULSE 62
[2023-09-01 06:05] LABS: International Normalized Ratio 2.7; Prothrombin Time (Protime)PT. 28.3 SECONDS (11.7-14.9)
[2023-09-01] MEDS: Furosemide 40 MG Tablet PO ×2 (06:45→14:05)
[2023-09-01] MEDS: Levothyroxine 50 MCG Tablet PO (06:45)
--- NOTE | 2023-09-01 09:39 | MDS.RN ---
Information for the MDS was obtained from review of the clinical record, interview of resident, staff, and direct observation of resident?s care.
--- NOTE | 2023-09-01 09:56 | CASEMGMT ---
Social Work SW contacted patient's niece, Jenny to follow up regarding SNF provider list referral. Jenny confirmed that she received e-mail for retirement providers. Jenny informed SW that she still needs to review retirement list provided. Jenny informed SW that the patient's family is concerned that the patient's sleep patterns are causing disorientation. Jenny informed RODRIGUEZ that family would like to know, if staff can be notified of concern. SW notified bedside RNStiven Alvarado to provide SW with choice for retirement placement. PONCHO Bobby
[2023-09-01 10:00] VITALS: PULSE 60; RESP 16; O2SAT 93
[2023-09-01] MEDS: Glucerna Shake 120 ML LIQUID PO ×3 (10:13→16:46)
[2023-09-01 10:16] VITALS: BP 113/44; PULSE 61
[2023-09-01] MEDS: Cyanocobalamin 500 MCG Tablet 1000 MCG PO (10:16)
[2023-09-01] MEDS: Cholecalciferol (Vit D3) 125 MCG CAPSULE (5,000 UNITS) PO (10:16)
[2023-09-01] MEDS: Metoprolol Tartrate 50 MG Tablet PO ×2 (10:16→21:29)
[2023-09-01] MEDS: DULoxetine Hcl 60 MG Capsule PO (10:16)
[2023-09-01] MEDS: Isosorbide Mononitrate 60 MG Tablet PO (10:16)
[2023-09-01] MEDS: Tolterodine Tartrate 2 MG CAP.SA PO (10:16)
[2023-09-01] MEDS: Nystatin Powder 15gm Bottle 1 APPLIC TOPICAL ×2 (10:17→21:22)
[2023-09-01] MEDS: Menthol/Lanolin/Calamine/Znox 113 GM Tube 1 APPLIC TOPICAL ×2 (10:17→21:22)
[2023-09-01] MEDS: Spironolactone 25 MG Tablet 12.5 MG PO (10:19)
[2023-09-01] MEDS: Multivitamin (Healthy Eyes) Capsule 1 CAP PO ×2 (10:21→21:28)
[2023-09-01] MEDS: Gabapentin 300 MG Capsule PO ×2 (10:35→21:27)
[2023-09-01 10:45] VITALS: BP 113/44; PULSE 61
[2023-09-01] MEDS: 0.9% Saline Lock 10 ML Syringe IV ×2 (11:09→21:24)
--- NOTE | 2023-09-01 12:51 | NURSING ---
PT IS TO HAVE BLADDER BOTOX ON 09/03/23 WITH . PT IS TO BE NPO AT MIDNIGHT 09/03/23. COUMADIN ON HOLD TILL AFTER SURGERY AT DISCRETION. PT CAN HAVE HER IMDUR,LOPRESSOR,GABAPENTIN, AND SYNTHROID. WILL BE NOTIFIED ON Friday09/02/23 OF WHAT TIME PER RA. RN AWARE
[2023-09-01 13:39] VITALS: BP 121/49; PULSE 61; RESP 14; TEMP 36.1; O2SAT 97
--- NOTE | 2023-09-01 13:47 | NURSING ---
PT IS TO FOLLOW UP WITH AT DISCHARGE AFTER THIS NURSE TALKED TO OFFICE TO LET THEM KNOW PT SISTER TOLD US TO DAY THAT PT HAD APPOINTMENT TO HAVE A INFUSION ON Friday09/04/23. OFFICE WAS NOT AWARE PT WAS HERE AND STATED THAT THE SAID IT CAN WAIT TILL AFTER D/C. FAMILY AWARE. RN AWARE
[2023-09-01 21:20] VITALS: BP 137/60; PULSE 61
[2023-09-01] MEDS: DULoxetine Hcl 30 MG Capsule PO (21:28)
[2023-09-01 21:29] VITALS: BP 137/60; PULSE 61
[2023-09-01] MEDS: Atorvastatin Calcium 20 MG Tablet PO (21:29)
[2023-09-02] MEDS: Levothyroxine 50 MCG Tablet PO (05:28)
[2023-09-02] MEDS: Furosemide 40 MG Tablet PO ×2 (05:28→13:15)
[2023-09-02 07:13] LABS: Prothrombin Time (Protime)PT. 22.3 SECONDS (11.7-14.9)
[2023-09-02] MEDS: Glucerna Shake 120 ML LIQUID PO ×3 (09:25→16:47)
[2023-09-02] MEDS: Menthol/Lanolin/Calamine/Znox 113 GM Tube 1 APPLIC TOPICAL ×2 (09:25→21:15)
[2023-09-02] MEDS: Multivitamin (Healthy Eyes) Capsule 1 CAP PO ×2 (09:28→21:17)
[2023-09-02] MEDS: Tolterodine Tartrate 2 MG CAP.SA PO (09:28)
[2023-09-02] MEDS: Isosorbide Mononitrate 60 MG Tablet PO (09:28)
[2023-09-02] MEDS: DULoxetine Hcl 60 MG Capsule PO (09:28)
[2023-09-02 09:29] VITALS: BP 138/58; PULSE 59
[2023-09-02] MEDS: Metoprolol Tartrate 50 MG Tablet PO ×2 (09:29→21:17)
[2023-09-02] MEDS: Spironolactone 25 MG Tablet 12.5 MG PO (09:29)
[2023-09-02] MEDS: Nystatin Powder 15gm Bottle 1 APPLIC TOPICAL ×2 (09:30→21:16)
[2023-09-02] MEDS: Cholecalciferol (Vit D3) 125 MCG CAPSULE (5,000 UNITS) PO (09:30)
[2023-09-02] MEDS: Cyanocobalamin 500 MCG Tablet 1000 MCG PO (09:30)
[2023-09-02] MEDS: Gabapentin 300 MG Capsule PO ×2 (09:33→21:11)
[2023-09-02] MEDS: 0.9% Saline Lock 10 ML Syringe IV ×2 (09:34→21:09)
[2023-09-02 09:36] VITALS: BP 138/58; PULSE 59
--- NOTE | 2023-09-02 11:53 | CASEMGMT ---
Social Work SW met with patient and nieceJenny at bedside to discuss care plans. Patient's niece informed SW that she sent correction list to other families for review. RODRIGUEZ will continue to monitor for assistance with discharge placement. PONCHO Bobby
[2023-09-02 13:16] VITALS: BMI 24.9
--- NOTE | 2023-09-02 13:42 | NURSING ---
WENT IN TO TALK TO PT AND PT SISTER ABOUT TOMORROWS PROCEDURE WITH . PT SISTER STATED I CANCELED THAT! THIS NURSE ASKED WHEN SHE CANCELED,PT SISTER STATED THIS MORNING. THIS NURSE STATED TO SISTER THAT WE WERE NOT NOTIFIED OF THE CANCELATION. SISTER STATED, WELL I THOUGHT THAT OFFICE WOULD CALL YOU. THIS NURSE STATED NO. SISTER LOOKED AT THIS NURSE AND SMILED AND STATED OH WELL ITS CANCELLED. THIS NURSE EXPLAINED TO SISTER THAT IF FAMILY CANCELS SOME THING THAT HAS TO DO WITH THE PT WHILE THEY ARE HERE ITS IMPORTANT THAT THEY LET US KNOW DUE TO THER MEDS,TRANSPORTATION ETC THAT MIGHT NEED CHANGED OR RESCHEDULED AND NOT TO PUT PT THREW ALL THE PREPPING BEFORE A PROCEDURE. AND SURGERY DONT ALWAYS NOTIFIE US. SISTER DIDNT SAY A WORD. RN AWARE AND NOTE LEFT FOR .
[2023-09-02 14:00] VITALS: BP 130/64; PULSE 60; RESP 14; TEMP 36.1; O2SAT 99
[2023-09-02] MEDS: Acetaminophen 500 MG Tablet 1000 MG PO (21:11)
[2023-09-02 21:17] VITALS: BP 130/65; PULSE 59
[2023-09-02] MEDS: DULoxetine Hcl 30 MG Capsule PO (21:17)
[2023-09-02] MEDS: Atorvastatin Calcium 20 MG Tablet PO (21:17)
[2023-09-02 21:30] VITALS: PULSE 60; O2SAT 99
[2023-09-02 21:31] VITALS: BP 130/65; PULSE 59
[2023-09-03] MEDS: Levothyroxine 50 MCG Tablet PO (06:00)
[2023-09-03] MEDS: Furosemide 40 MG Tablet PO ×2 (06:00→14:01)
[2023-09-03 07:50] LABS: Absolute Lymphocyte Count 1.54 X10^3/uL (0.83-4.51); Absolute Neutrophil Count 5.6 X10^3/uL (2.0-7.7); Basophil# 0.02 X10^3/uL; Basophil% 0.2 % (0-1); Eosinophil# 0.14 X10^3/uL; Eosinophils% 1.7 % (0-5); Hematocrit 39.7 % (37-47); Hemoglobin 12.6 g/dL (12.0-15.0); Lymphocyte # 1.54 X10^3/ul (0.83-4.51); Lymphocyte % 18.8 % (19-41); Mean Corp Hgb Conc 31.7 g/dL (32-36); Mean Corpuscular Hgb 29.4 pg (27.0-32.0); Mean Corpuscular Volume 92.5 fL (81-99); Mean Platelet Vol. 10.6 fl (6.2-12.0); Monocyte# 0.85 X10^3/uL; Monocyte% 10.4 % (0-10); NRBC Flagged by Analyzer 0 % (0-5); Neutrophil # 5.58 X10^3/uL (2.7-7.7); Neutrophil % 68.4 % (47-70); Platelet Count 255 K/mm3 (150-450); RBC Distribution Width CV 13.2 % (11.6-14.6); RBC Distribution Width SD 44.7 fl (35.1-43.9); Red Blood Count 4.29 M/mm3 (4.2-5.4); White Blood Count 8.2 K/mm3 (4.4-11.0)
[2023-09-03 08:11] LABS: Anion Gap 9 (5-15); BUN 21 mg/dL (7-18); BUN/Creat Ratio 17.4 RATIO (10-20); Calcium,Total 9.3 mg/dL (8.5-10.1); Chloride 102 mmol/L (98-107); Creatinine, Serum 1.21 mg/dL (0.55-1.02); EST Glomerular Filtration Rate 45 mL/min (>60); Est Glom Filt Rate - Afr Amer 54 mL/min (>60); Estimated Creatinine Clearance 31.85 ml/min; Glucose 125 mg/dL (74-106); Potassium 4.2 mmol/L (3.5-5.1); Sodium Level 136 mmol/L (136-145)
[2023-09-03 09:11] LABS: International Normalized Ratio 1.6; Prothrombin Time (Protime)PT. 18.8 SECONDS (11.7-14.9)
[2023-09-03] MEDS: Spironolactone 25 MG Tablet 12.5 MG PO (09:39)
[2023-09-03] MEDS: Glucerna Shake 120 ML LIQUID PO ×3 (09:39→18:25)
[2023-09-03] MEDS: DULoxetine Hcl 60 MG Capsule PO (09:39)
[2023-09-03 09:40] VITALS: BP 133/48; PULSE 59
[2023-09-03] MEDS: Isosorbide Mononitrate 60 MG Tablet PO (09:40)
[2023-09-03] MEDS: Cholecalciferol (Vit D3) 125 MCG CAPSULE (5,000 UNITS) PO (09:40)
[2023-09-03] MEDS: Multivitamin (Healthy Eyes) Capsule 1 CAP PO ×2 (09:40→21:03)
[2023-09-03] MEDS: Tolterodine Tartrate 2 MG CAP.SA PO (09:40)
[2023-09-03] MEDS: Cyanocobalamin 500 MCG Tablet 1000 MCG PO (09:40)
[2023-09-03] MEDS: Metoprolol Tartrate 50 MG Tablet PO ×2 (09:40→21:04)
[2023-09-03] MEDS: Gabapentin 300 MG Capsule PO ×2 (09:43→21:04)
[2023-09-03] MEDS: Menthol/Lanolin/Calamine/Znox 113 GM Tube 1 APPLIC TOPICAL ×2 (09:52→21:03)
[2023-09-03] MEDS: Nystatin Powder 15gm Bottle 1 APPLIC TOPICAL ×2 (09:52→21:03)
--- NOTE | 2023-09-03 11:02 | NURSING ---
Referral faxed to Dr. Srivastava for neurology follow-up after DC from [facility]. .
--- NOTE | 2023-09-03 11:59 | WOUNDNOTE ---
wound photo: right lateral ankle
[2023-09-03 14:20] VITALS: BP 123/58; PULSE 60; RESP 18; TEMP 36.8; O2SAT 98
[2023-09-03] MEDS: 0.9% Saline Lock 10 ML Syringe IV (18:26)
[2023-09-03] MEDS: Lidocaine 5% Patch 1 PATCH TOPICAL (18:53)
[2023-09-03] MEDS: Acetaminophen 500 MG Tablet 1000 MG PO (18:57)
[2023-09-03] MEDS: DULoxetine Hcl 30 MG Capsule PO (21:03)
[2023-09-03 21:04] VITALS: BP 119/51; PULSE 80
[2023-09-03] MEDS: Atorvastatin Calcium 20 MG Tablet PO (21:04)
[2023-09-03 23:32] VITALS: BP 119/51; PULSE 80
[2023-09-04] MEDS: Levothyroxine 50 MCG Tablet PO (06:23)
[2023-09-04] MEDS: Furosemide 40 MG Tablet PO ×2 (06:23→14:08)
[2023-09-04 06:52] LABS: International Normalized Ratio 1.5; Prothrombin Time (Protime)PT. 18.2 SECONDS (11.7-14.9)
[2023-09-04] MEDS: DULoxetine Hcl 60 MG Capsule PO (08:31)
[2023-09-04] MEDS: Glucerna Shake 120 ML LIQUID PO ×3 (08:31→16:35)
[2023-09-04] MEDS: Spironolactone 25 MG Tablet 12.5 MG PO (08:32)
[2023-09-04 08:34] VITALS: BP 151/59; PULSE 60
[2023-09-04] MEDS: Menthol/Lanolin/Calamine/Znox 113 GM Tube 1 APPLIC TOPICAL ×2 (08:34→21:32)
[2023-09-04] MEDS: Nystatin Powder 15gm Bottle 1 APPLIC TOPICAL ×2 (08:34→21:33)
[2023-09-04] MEDS: Metoprolol Tartrate 50 MG Tablet PO ×2 (08:34→21:34)
[2023-09-04] MEDS: Tolterodine Tartrate 2 MG CAP.SA PO (08:35)
[2023-09-04] MEDS: Isosorbide Mononitrate 60 MG Tablet PO (08:35)
[2023-09-04] MEDS: Multivitamin (Healthy Eyes) Capsule 1 CAP PO ×2 (08:35→21:34)
[2023-09-04] MEDS: Cyanocobalamin 500 MCG Tablet 1000 MCG PO (08:35)
[2023-09-04] MEDS: Cholecalciferol (Vit D3) 125 MCG CAPSULE (5,000 UNITS) PO (08:36)
[2023-09-04] MEDS: Gabapentin 300 MG Capsule PO ×2 (08:37→21:31)
[2023-09-04 08:44] VITALS: BP 151/59; PULSE 60
--- NOTE | 2023-09-04 08:45 | NURSING ---
REMOVED LIDOCAINE PATCH FROM LEFT SHOULDER.
--- NOTE | 2023-09-04 09:07 | NURSING ---
PT LEFT BY WHEEL CHAIR FOR APPOINTMENT AT [facility] AT 0845 WITH SISTER. PT BACK AT 0900 AND SISTER STATED PT DID NOT HAVE A APPOINTMENT SCHEDULED WITH THEM TODAY. SISTER MADE NEW APPOINTMENT FOR TOMORROW WITH [facility] AT 1300.
[2023-09-04] MEDS: Acetaminophen 500 MG Tablet 1000 MG PO ×2 (11:13→17:20)
[2023-09-04] MEDS: 0.9% Saline Lock 10 ML Syringe IV ×2 (14:13→21:39)
[2023-09-04 16:00] VITALS: BP 110/54; PULSE 60; RESP 16; TEMP 36.3; O2SAT 97; O2SAT 98
[2023-09-04] MEDS: Jantoven 2 MG Tablet PO (16:35)
--- NOTE | 2023-09-04 17:27 | CASEMGMT ---
Social Work SW received choice from patient's family for terminal operations manager care placement. 1. [facility] 2. [facility] 3. [facility]. SW submitted referral to facility for placement. PONCHO Bobby
[2023-09-04] MEDS: Acyclovir 5% Tube 1 APPLIC TOPICAL ×2 (19:44→21:35)
[2023-09-04 21:30] VITALS: BP 139/58; PULSE 60
[2023-09-04 21:34] VITALS: BP 139/58; PULSE 60
[2023-09-04] MEDS: Atorvastatin Calcium 20 MG Tablet PO (21:34)
[2023-09-04] MEDS: DULoxetine Hcl 30 MG Capsule PO (21:34)
[2023-09-04] MEDS: Lidocaine 5% Patch 1 PATCH TOPICAL (21:36)
[2023-09-05] MEDS: Acyclovir 5% Tube 1 APPLIC TOPICAL ×5 (05:12→22:15)
[2023-09-05] MEDS: Furosemide 40 MG Tablet PO ×2 (05:12→14:21)
[2023-09-05] MEDS: Levothyroxine 50 MCG Tablet PO (05:12)
[2023-09-05 06:15] LABS: International Normalized Ratio 1.6; Prothrombin Time (Protime)PT. 19.4 SECONDS (11.7-14.9)
[2023-09-05] MEDS: Glucerna Shake 120 ML LIQUID PO ×3 (09:32→17:21)
[2023-09-05] MEDS: Spironolactone 25 MG Tablet 12.5 MG PO (09:32)
[2023-09-05] MEDS: Tolterodine Tartrate 2 MG CAP.SA PO (09:33)
[2023-09-05] MEDS: Isosorbide Mononitrate 60 MG Tablet PO (09:33)
[2023-09-05] MEDS: DULoxetine Hcl 60 MG Capsule PO (09:33)
[2023-09-05] MEDS: Multivitamin (Healthy Eyes) Capsule 1 CAP PO ×2 (09:33→22:15)
[2023-09-05] MEDS: Gabapentin 300 MG Capsule PO ×2 (09:34→22:21)
[2023-09-05] MEDS: Cholecalciferol (Vit D3) 125 MCG CAPSULE (5,000 UNITS) PO (09:34)
[2023-09-05] MEDS: Cyanocobalamin 500 MCG Tablet 1000 MCG PO (09:34)
[2023-09-05 09:37] VITALS: BP 139/60; PULSE 59
[2023-09-05] MEDS: Metoprolol Tartrate 50 MG Tablet PO ×2 (09:37→22:15)
[2023-09-05] MEDS: Menthol/Lanolin/Calamine/Znox 113 GM Tube 1 APPLIC TOPICAL ×2 (09:40→22:16)
[2023-09-05] MEDS: Nystatin Powder 15gm Bottle 1 APPLIC TOPICAL ×2 (09:40→22:16)
--- NOTE | 2023-09-05 11:20 | CASEMGMT ---
Social Work 1015- RODRIGUEZ received a call from Zoe at [facility] informing SW that patient has been accepted for services. 1120- RODRIGUEZ received a message from [facility] Raymundo requesting follow up regarding patient referral. RODRIGUEZ returned Raymundo's call ext [phone] ; no answer. RODRIGUEZ left a voicemail requesting follow up. 1310- RODRIGUEZ contacted patient's niece, Jenny via phone to discuss placement. Jenny informed RODRIGUEZ that she would like placement at [facility] due to proximity to family. RODRIGUEZ discussed placement process for vermin exterminator care. Jenny inquired about projected discharge. RODRIGUEZ reviewed patient Medicare coverage and benefits. Patient will be going into copay days 09/08. Jenny informed RODRIGUEZ that the family is no concerned about co-pay at this time. Jenny would like to know how much notice family would be notified of discharge. RODRIGUEZ informed Jenny that discharge can be planned a head of time 3days to a week a head. RODRIGUEZ met with therapy to discuss patient's progress. Patient has been improving with therapy. Therapy will be assessing patient ADLS on Friday. Therapy recommends continued therapy 1 more week. RODRIGUEZ will be provided updates at [facility] to project discharge. RODRIGUEZ provided update to Jenny informing her that an update will be provided Friday to coordinate discharge. RODRIGUEZ will continue to follow to support discharge planning. PONCHO Bobby
--- NOTE | 2023-09-05 14:32 | NURSING ---
Returns from cardiology with [facility]. F/U in 3 months but sister reports office will call them to set up the date.
[2023-09-05 16:00] VITALS: BP 155/60; PULSE 72; RESP 16; TEMP 36.1; O2SAT 97
[2023-09-05] MEDS: Acetaminophen 500 MG Tablet 1000 MG PO (17:27)
[2023-09-05] MEDS: Lidocaine 5% Patch 1 PATCH TOPICAL (18:19)
[2023-09-05] MEDS: 0.9% Saline Lock 10 ML Syringe IV ×2 (18:21→22:15)
[2023-09-05 22:00] VITALS: O2SAT 97
[2023-09-05 22:15] VITALS: BP 118/52; PULSE 62
[2023-09-05] MEDS: Atorvastatin Calcium 20 MG Tablet PO (22:15)
[2023-09-05] MEDS: DULoxetine Hcl 30 MG Capsule PO (22:15)
[2023-09-06] MEDS: Levothyroxine 50 MCG Tablet PO (06:23)
[2023-09-06 06:24] VITALS: BP 120/45; PULSE 61
[2023-09-06] MEDS: Acyclovir 5% Tube 1 APPLIC TOPICAL ×5 (06:25→21:58)
[2023-09-06] MEDS: Furosemide 40 MG Tablet PO ×2 (06:25→14:14)
[2023-09-06 08:18] VITALS: BP 125/60; PULSE 61; RESP 14; TEMP 36.2; O2SAT 99
[2023-09-06 08:20] VITALS: PULSE 61
[2023-09-06] MEDS: Isosorbide Mononitrate 60 MG Tablet PO (08:20)
[2023-09-06] MEDS: Metoprolol Tartrate 50 MG Tablet PO ×2 (08:20→21:53)
[2023-09-06] MEDS: Multivitamin (Healthy Eyes) Capsule 1 CAP PO ×2 (08:20→21:52)
[2023-09-06] MEDS: Cholecalciferol (Vit D3) 125 MCG CAPSULE (5,000 UNITS) PO (08:20)
[2023-09-06] MEDS: Tolterodine Tartrate 2 MG CAP.SA PO (08:20)
[2023-09-06] MEDS: Cyanocobalamin 500 MCG Tablet 1000 MCG PO (08:20)
[2023-09-06] MEDS: Menthol/Lanolin/Calamine/Znox 113 GM Tube 1 APPLIC TOPICAL ×2 (08:21→21:53)
[2023-09-06] MEDS: Spironolactone 25 MG Tablet 12.5 MG PO (08:21)
[2023-09-06] MEDS: Nystatin Powder 15gm Bottle 1 APPLIC TOPICAL ×2 (08:22→21:53)
[2023-09-06] MEDS: DULoxetine Hcl 60 MG Capsule PO (08:22)
[2023-09-06] MEDS: Gabapentin 300 MG Capsule PO ×2 (08:25→21:55)
[2023-09-06 08:58] LABS: International Normalized Ratio 2.1; Prothrombin Time (Protime)PT. 23.4 SECONDS (11.7-14.9)
[2023-09-06] MEDS: Glucerna Shake 120 ML LIQUID PO ×2 (14:30→17:47)
[2023-09-06] MEDS: DULoxetine Hcl 30 MG Capsule PO (21:52)
[2023-09-06 21:53] VITALS: BP 132/72; PULSE 61
[2023-09-06] MEDS: Atorvastatin Calcium 20 MG Tablet PO (21:53)
[2023-09-07] MEDS: Furosemide 40 MG Tablet PO ×2 (05:08→14:32)
[2023-09-07] MEDS: Acyclovir 5% Tube 1 APPLIC TOPICAL ×5 (05:09→21:36)
[2023-09-07] MEDS: Levothyroxine 50 MCG Tablet PO (05:09)
[2023-09-07] MEDS: Menthol/Lanolin/Calamine/Znox 113 GM Tube 1 APPLIC TOPICAL ×2 (09:10→21:35)
[2023-09-07] MEDS: Spironolactone 25 MG Tablet 12.5 MG PO (09:13)
[2023-09-07] MEDS: Multivitamin (Healthy Eyes) Capsule 1 CAP PO ×2 (09:16→21:43)
[2023-09-07] MEDS: DULoxetine Hcl 60 MG Capsule PO (09:16)
[2023-09-07 09:17] VITALS: BP 127/51; PULSE 59
[2023-09-07] MEDS: Isosorbide Mononitrate 60 MG Tablet PO (09:17)
[2023-09-07] MEDS: Metoprolol Tartrate 50 MG Tablet PO ×2 (09:17→21:43)
[2023-09-07] MEDS: Tolterodine Tartrate 2 MG CAP.SA PO (09:17)
[2023-09-07] MEDS: Nystatin Powder 15gm Bottle 1 APPLIC TOPICAL ×2 (09:18→21:36)
[2023-09-07] MEDS: Cholecalciferol (Vit D3) 125 MCG CAPSULE (5,000 UNITS) PO (09:18)
[2023-09-07] MEDS: Cyanocobalamin 500 MCG Tablet 1000 MCG PO (09:18)
[2023-09-07] MEDS: Gabapentin 300 MG Capsule PO ×2 (09:22→21:42)
[2023-09-07] MEDS: Glucerna Shake 120 ML LIQUID PO ×3 (09:22→18:14)
[2023-09-07 09:29] VITALS: BP 127/51; PULSE 59
[2023-09-07] MEDS: Acetaminophen 500 MG Tablet 1000 MG PO (14:33)
[2023-09-07 16:00] VITALS: BP 111/56; PULSE 60; RESP 16; TEMP 36.5; O2SAT 98
[2023-09-07] MEDS: 0.9% Saline Lock 10 ML Syringe IV ×2 (18:16→21:33)
[2023-09-07] MEDS: Lidocaine 5% Patch 1 PATCH TOPICAL (18:55)
[2023-09-07 21:43] VITALS: BP 146/63; PULSE 61
[2023-09-07] MEDS: DULoxetine Hcl 30 MG Capsule PO (21:43)
[2023-09-07] MEDS: Atorvastatin Calcium 20 MG Tablet PO (21:43)
[2023-09-07 21:49] VITALS: BP 146/63; PULSE 61
[2023-09-08] MEDS: Acyclovir 5% Tube 1 APPLIC TOPICAL ×5 (05:22→21:32)
[2023-09-08] MEDS: Levothyroxine 50 MCG Tablet PO (05:24)
[2023-09-08] MEDS: Furosemide 40 MG Tablet PO ×2 (05:24→15:12)
[2023-09-08 10:47] VITALS: BP 134/59; PULSE 60; RESP 17; TEMP 36.6; O2SAT 96
[2023-09-08] MEDS: Spironolactone 25 MG Tablet 12.5 MG PO (10:52)
[2023-09-08] MEDS: Tolterodine Tartrate 2 MG CAP.SA PO (10:52)
[2023-09-08] MEDS: DULoxetine Hcl 60 MG Capsule PO (10:52)
[2023-09-08 10:53] VITALS: PULSE 60
[2023-09-08] MEDS: Metoprolol Tartrate 50 MG Tablet PO ×2 (10:53→21:34)
[2023-09-08] MEDS: Cholecalciferol (Vit D3) 125 MCG CAPSULE (5,000 UNITS) PO (10:53)
[2023-09-08] MEDS: Multivitamin (Healthy Eyes) Capsule 1 CAP PO ×2 (10:53→21:34)
[2023-09-08] MEDS: Cyanocobalamin 500 MCG Tablet 1000 MCG PO (10:53)
[2023-09-08] MEDS: Isosorbide Mononitrate 60 MG Tablet PO (10:53)
[2023-09-08] MEDS: Nystatin Powder 15gm Bottle 1 APPLIC TOPICAL ×2 (10:54→21:33)
[2023-09-08] MEDS: Menthol/Lanolin/Calamine/Znox 113 GM Tube 1 APPLIC TOPICAL ×2 (10:55→21:34)
[2023-09-08] MEDS: Gabapentin 300 MG Capsule PO ×2 (10:57→21:33)
[2023-09-08] MEDS: Acetaminophen 500 MG Tablet 1000 MG PO (10:58)
[2023-09-08] MEDS: Glucerna Shake 120 ML LIQUID PO ×3 (10:58→18:21)
[2023-09-08 15:10] VITALS: BP 120/56; PULSE 60
[2023-09-08] MEDS: Lidocaine 5% Patch 1 PATCH TOPICAL (18:23)
[2023-09-08 20:15] VITALS: PULSE 61; O2SAT 97
[2023-09-08 21:34] VITALS: BP 145/62; PULSE 61
[2023-09-08] MEDS: Atorvastatin Calcium 20 MG Tablet PO (21:34)
[2023-09-08] MEDS: DULoxetine Hcl 30 MG Capsule PO (21:34)
[2023-09-08] MEDS: 0.9% Saline Lock 10 ML Syringe IV (21:39)
[2023-09-09] MEDS: Acyclovir 5% Tube 1 APPLIC TOPICAL ×5 (06:07→21:32)
[2023-09-09] MEDS: Furosemide 40 MG Tablet PO ×2 (06:08→13:40)
[2023-09-09] MEDS: Levothyroxine 50 MCG Tablet PO (06:08)
[2023-09-09 08:49] VITALS: BP 137/54; PULSE 61; RESP 18; TEMP 36.4; O2SAT 100
[2023-09-09 08:53] VITALS: PULSE 61
[2023-09-09] MEDS: Multivitamin (Healthy Eyes) Capsule 1 CAP PO ×2 (08:53→21:31)
[2023-09-09] MEDS: Cyanocobalamin 500 MCG Tablet 1000 MCG PO (08:53)
[2023-09-09] MEDS: Metoprolol Tartrate 50 MG Tablet PO ×2 (08:53→21:31)
[2023-09-09] MEDS: DULoxetine Hcl 60 MG Capsule PO (08:53)
[2023-09-09] MEDS: Tolterodine Tartrate 2 MG CAP.SA PO (08:53)
[2023-09-09] MEDS: Glucerna Shake 120 ML LIQUID PO ×3 (08:53→17:45)
[2023-09-09] MEDS: Gabapentin 300 MG Capsule PO ×2 (08:53→21:24)
[2023-09-09] MEDS: Isosorbide Mononitrate 60 MG Tablet PO (08:54)
[2023-09-09] MEDS: Nystatin Powder 15gm Bottle 1 APPLIC TOPICAL ×2 (08:54→21:26)
[2023-09-09] MEDS: Cholecalciferol (Vit D3) 125 MCG CAPSULE (5,000 UNITS) PO (08:54)
[2023-09-09] MEDS: Spironolactone 25 MG Tablet 12.5 MG PO (08:54)
[2023-09-09] MEDS: Menthol/Lanolin/Calamine/Znox 113 GM Tube 1 APPLIC TOPICAL ×2 (09:05→21:26)
[2023-09-09 09:32] VITALS: BMI 24.3
--- NOTE | 2023-09-09 11:05 | WOUNDNOTE ---
wound photo: right lateral ankle
[2023-09-09] MEDS: 0.9% Saline Lock 10 ML Syringe IV ×2 (13:40→21:33)
[2023-09-09 21:31] VITALS: BP 148/63; PULSE 59
[2023-09-09] MEDS: Atorvastatin Calcium 20 MG Tablet PO (21:31)
[2023-09-09] MEDS: DULoxetine Hcl 30 MG Capsule PO (21:31)
[2023-09-09] MEDS: Acetaminophen 500 MG Tablet 1000 MG PO (21:34)
[2023-09-09 21:42] VITALS: BP 148/63; PULSE 59
[2023-09-10] MEDS: Furosemide 40 MG Tablet PO ×2 (05:48→13:43)
[2023-09-10] MEDS: Acyclovir 5% Tube 1 APPLIC TOPICAL ×5 (05:48→21:39)
[2023-09-10] MEDS: Levothyroxine 50 MCG Tablet PO (05:49)
[2023-09-10 05:53] LABS: Absolute Lymphocyte Count 1.75 X10^3/uL (0.83-4.51); Absolute Neutrophil Count 4.4 X10^3/uL (2.0-7.7); Basophil# 0.01 X10^3/uL; Basophil% 0.1 % (0-1); Eosinophil# 0.11 X10^3/uL; Eosinophils% 1.6 % (0-5); Hematocrit 38.5 % (37-47); Lymphocyte # 1.75 X10^3/ul (0.83-4.51); Mean Corp Hgb Conc 31.2 g/dL (32-36); Mean Corpuscular Hgb 28.8 pg (27.0-32.0); Mean Corpuscular Volume 92.3 fL (81-99); Mean Platelet Vol. 10.1 fl (6.2-12.0); Monocyte# 0.67 X10^3/uL; Monocyte% 9.6 % (0-10); NRBC Flagged by Analyzer 0 % (0-5); Neutrophil # 4.42 X10^3/uL (2.7-7.7); Neutrophil % 63.1 % (47-70); Platelet Count 237 K/mm3 (150-450); RBC Distribution Width CV 13.2 % (11.6-14.6); RBC Distribution Width SD 44.5 fl (35.1-43.9); Red Blood Count 4.17 M/mm3 (4.2-5.4)
[2023-09-10 06:19] LABS: Anion Gap 7 (5-15); BUN 35 mg/dL (7-18); BUN/Creat Ratio 25.2 RATIO (10-20); Calcium,Total 9.3 mg/dL (8.5-10.1); Chloride 103 mmol/L (98-107); Creatinine, Serum 1.39 mg/dL (0.55-1.02); EST Glomerular Filtration Rate 38 mL/min (>60); Est Glom Filt Rate - Afr Amer 46 mL/min (>60); Estimated Creatinine Clearance 27.73 ml/min; Glucose 119 mg/dL (74-106); Potassium 4.6 mmol/L (3.5-5.1); Sodium Level 138 mmol/L (136-145)
[2023-09-10] MEDS: Glucerna Shake 120 ML LIQUID PO ×3 (09:26→17:04)
[2023-09-10] MEDS: DULoxetine Hcl 60 MG Capsule PO (09:27)
[2023-09-10] MEDS: Spironolactone 25 MG Tablet 12.5 MG PO (09:27)
[2023-09-10] MEDS: Isosorbide Mononitrate 60 MG Tablet PO (09:27)
[2023-09-10] MEDS: Tolterodine Tartrate 2 MG CAP.SA PO (09:27)
[2023-09-10] MEDS: Multivitamin (Healthy Eyes) Capsule 1 CAP PO ×2 (09:27→21:38)
[2023-09-10 09:28] VITALS: BP 128/52; PULSE 59
[2023-09-10] MEDS: Cholecalciferol (Vit D3) 125 MCG CAPSULE (5,000 UNITS) PO (09:28)
[2023-09-10] MEDS: Metoprolol Tartrate 50 MG Tablet PO ×2 (09:28→21:38)
[2023-09-10] MEDS: Cyanocobalamin 500 MCG Tablet 1000 MCG PO (09:28)
[2023-09-10] MEDS: Gabapentin 300 MG Capsule PO ×2 (09:31→21:41)
[2023-09-10] MEDS: Menthol/Lanolin/Calamine/Znox 113 GM Tube 1 APPLIC TOPICAL ×2 (09:51→21:33)
[2023-09-10] MEDS: Nystatin Powder 15gm Bottle 1 APPLIC TOPICAL ×2 (09:52→21:35)
[2023-09-10 09:53] VITALS: BP 128/52; PULSE 59
[2023-09-10] MEDS: Acetaminophen 500 MG Tablet 1000 MG PO (12:38)
[2023-09-10] MEDS: 0.9% Saline Lock 10 ML Syringe IV ×2 (14:12→21:33)
--- NOTE | 2023-09-10 15:49 | CASEMGMT ---
Social Work SW spoke with therapy to discuss patient progress with therapy. SW spoke with Juan José who informed SW that the patient has been progressing with therapy; cognition improving. Juan José is requesting to continue therapy with patient over the next week to improve with mobility and balance. SW contacted patient's niece, Jenny to discuss recommendations for continued rehab. Jenny informed SW that she is agreeable to continued rehab before transitioning to [facility]. SW will continue to monitor for transition of [facility] planning [facility]. PONCHO Bobby
[2023-09-10 16:00] VITALS: BP 126/56; PULSE 60; RESP 22; TEMP 36.7; O2SAT 96
[2023-09-10 21:38] VITALS: BP 147/60; PULSE 59
[2023-09-10] MEDS: Atorvastatin Calcium 20 MG Tablet PO (21:38)
[2023-09-10] MEDS: DULoxetine Hcl 30 MG Capsule PO (21:38)
[2023-09-10 21:47] VITALS: BP 147/60; PULSE 59; O2SAT 98
[2023-09-10 22:00] VITALS: O2SAT 98
[2023-09-11] MEDS: Levothyroxine 50 MCG Tablet PO (05:49)
[2023-09-11] MEDS: Furosemide 40 MG Tablet PO ×2 (05:49→14:20)
[2023-09-11] MEDS: Acyclovir 5% Tube 1 APPLIC TOPICAL ×4 (05:50→17:29)
[2023-09-11 06:15] VITALS: PULSE 60; O2SAT 99
[2023-09-11] MEDS: Acetaminophen 500 MG Tablet 1000 MG PO ×2 (06:54→17:27)
[2023-09-11] MEDS: Nystatin Powder 15gm Bottle 1 APPLIC TOPICAL ×2 (09:05→20:57)
[2023-09-11] MEDS: Multivitamin (Healthy Eyes) Capsule 1 CAP PO ×2 (09:05→20:59)
[2023-09-11] MEDS: Cyanocobalamin 500 MCG Tablet 1000 MCG PO (09:05)
[2023-09-11 09:06] VITALS: BP 116/53; PULSE 60
[2023-09-11] MEDS: Isosorbide Mononitrate 60 MG Tablet PO (09:06)
[2023-09-11] MEDS: Metoprolol Tartrate 50 MG Tablet PO ×2 (09:06→20:59)
[2023-09-11] MEDS: DULoxetine Hcl 60 MG Capsule PO (09:07)
[2023-09-11] MEDS: Tolterodine Tartrate 2 MG CAP.SA PO (09:07)
[2023-09-11] MEDS: Cholecalciferol (Vit D3) 125 MCG CAPSULE (5,000 UNITS) PO (09:07)
[2023-09-11] MEDS: Spironolactone 25 MG Tablet 12.5 MG PO (09:08)
[2023-09-11] MEDS: Menthol/Lanolin/Calamine/Znox 113 GM Tube 1 APPLIC TOPICAL ×2 (09:08→20:57)
[2023-09-11] MEDS: Gabapentin 300 MG Capsule PO ×2 (09:13→20:56)
[2023-09-11] MEDS: Glucerna Shake 120 ML LIQUID PO ×3 (09:13→17:26)
[2023-09-11 09:17] VITALS: BP 116/53; PULSE 60
[2023-09-11] MEDS: Lidocaine 5% Patch 1 PATCH TOPICAL (10:58)
[2023-09-11 15:02] VITALS: BP 106/52; PULSE 60; RESP 18; TEMP 36.8; O2SAT 98
[2023-09-11] MEDS: 0.9% Saline Lock 10 ML Syringe IV (20:53)
[2023-09-11] MEDS: DULoxetine Hcl 30 MG Capsule PO (20:58)
[2023-09-11 20:59] VITALS: BP 131/50; PULSE 60
[2023-09-11] MEDS: Atorvastatin Calcium 20 MG Tablet PO (20:59)
[2023-09-11 21:08] VITALS: BP 131/50; PULSE 60
[2023-09-12] MEDS: Levothyroxine 50 MCG Tablet PO (05:52)
[2023-09-12] MEDS: Furosemide 40 MG Tablet PO ×2 (05:52→14:08)
[2023-09-12 08:50] LABS: International Normalized Ratio 3.5; Prothrombin Time (Protime)PT. 35.1 SECONDS (11.7-14.9)
[2023-09-12 10:45] VITALS: BP 148/62; PULSE 61; RESP 16; TEMP 36.8; O2SAT 99
[2023-09-12] MEDS: Spironolactone 25 MG Tablet 12.5 MG PO (10:53)
[2023-09-12] MEDS: DULoxetine Hcl 60 MG Capsule PO (10:53)
[2023-09-12] MEDS: Menthol/Lanolin/Calamine/Znox 113 GM Tube 1 APPLIC TOPICAL ×2 (10:53→20:53)
[2023-09-12] MEDS: Multivitamin (Healthy Eyes) Capsule 1 CAP PO ×2 (10:53→20:54)
[2023-09-12] MEDS: Tolterodine Tartrate 2 MG CAP.SA PO (10:53)
[2023-09-12 10:54] VITALS: PULSE 61
[2023-09-12] MEDS: Metoprolol Tartrate 50 MG Tablet PO ×2 (10:54→20:54)
[2023-09-12] MEDS: Cholecalciferol (Vit D3) 125 MCG CAPSULE (5,000 UNITS) PO (10:54)
[2023-09-12] MEDS: Isosorbide Mononitrate 60 MG Tablet PO (10:54)
[2023-09-12] MEDS: Cyanocobalamin 500 MCG Tablet 1000 MCG PO (10:54)
[2023-09-12] MEDS: Nystatin Powder 15gm Bottle 1 APPLIC TOPICAL ×2 (10:54→20:53)
[2023-09-12] MEDS: Gabapentin 300 MG Capsule PO ×2 (10:56→20:52)
[2023-09-12] MEDS: Acetaminophen 500 MG Tablet 1000 MG PO (12:55)
[2023-09-12] MEDS: Glucerna Shake 120 ML LIQUID PO ×2 (12:55→17:38)
--- NOTE | 2023-09-12 13:39 | NURSING ---
Updated Dr. Almanza on patient's INR 3.5. New orders placed by Dr. Almanza.
[2023-09-12 14:05] VITALS: BP 125/60; PULSE 63
[2023-09-12] MEDS: Lidocaine 5% Patch 1 PATCH TOPICAL (14:08)
[2023-09-12] MEDS: Warfarin 0.5 MG, Warfarin 3 MG 3.5 MG PO (17:38)
[2023-09-12 20:45] VITALS: PULSE 62; O2SAT 99
[2023-09-12 20:54] VITALS: BP 145/61; PULSE 60
[2023-09-12] MEDS: DULoxetine Hcl 30 MG Capsule PO (20:54)
[2023-09-12] MEDS: Atorvastatin Calcium 20 MG Tablet PO (20:54)
[2023-09-12] MEDS: 0.9% Saline Lock 10 ML Syringe IV (20:54)
[2023-09-13 06:00] VITALS: PULSE 63; O2SAT 95
[2023-09-13] MEDS: Levothyroxine 50 MCG Tablet PO (06:01)
[2023-09-13] MEDS: Furosemide 40 MG Tablet PO ×2 (06:01→14:13)
[2023-09-13] MEDS: Acetaminophen 500 MG Tablet 1000 MG PO ×2 (06:51→14:13)
[2023-09-13 10:04] VITALS: BP 128/47; PULSE 61; RESP 18; TEMP 36.7; O2SAT 97
[2023-09-13 10:06] VITALS: PULSE 61
[2023-09-13] MEDS: Multivitamin (Healthy Eyes) Capsule 1 CAP PO ×2 (10:06→22:15)
[2023-09-13] MEDS: Metoprolol Tartrate 50 MG Tablet PO ×2 (10:06→22:16)
[2023-09-13] MEDS: Nystatin Powder 15gm Bottle 1 APPLIC TOPICAL ×2 (10:06→22:11)
[2023-09-13] MEDS: Isosorbide Mononitrate 60 MG Tablet PO (10:06)
[2023-09-13] MEDS: Cyanocobalamin 500 MCG Tablet 1000 MCG PO (10:06)
[2023-09-13] MEDS: Cholecalciferol (Vit D3) 125 MCG CAPSULE (5,000 UNITS) PO (10:07)
[2023-09-13] MEDS: Glucerna Shake 120 ML LIQUID PO ×3 (10:07→17:37)
[2023-09-13] MEDS: Tolterodine Tartrate 2 MG CAP.SA PO (10:07)
[2023-09-13] MEDS: DULoxetine Hcl 60 MG Capsule PO (10:08)
[2023-09-13] MEDS: Spironolactone 25 MG Tablet 12.5 MG PO (10:08)
[2023-09-13] MEDS: Gabapentin 300 MG Capsule PO ×2 (10:08→22:19)
[2023-09-13] MEDS: Menthol/Lanolin/Calamine/Znox 113 GM Tube 1 APPLIC TOPICAL ×2 (10:12→22:13)
[2023-09-13] MEDS: 0.9% Saline Lock 10 ML Syringe IV ×2 (12:09→22:20)
[2023-09-13] MEDS: Warfarin 0.5 MG, Warfarin 3 MG 3.5 MG PO (17:35)
[2023-09-13] MEDS: Atorvastatin Calcium 20 MG Tablet PO (22:15)
[2023-09-13] MEDS: DULoxetine Hcl 30 MG Capsule PO (22:15)
[2023-09-13 22:16] VITALS: BP 122/59; PULSE 60
[2023-09-13 22:25] VITALS: BP 122/59; PULSE 60
[2023-09-14] MEDS: Furosemide 40 MG Tablet PO ×2 (05:15→14:04)
[2023-09-14] MEDS: Levothyroxine 50 MCG Tablet PO (05:15)
[2023-09-14] MEDS: Multivitamin (Healthy Eyes) Capsule 1 CAP PO ×2 (09:32→22:12)
[2023-09-14] MEDS: Cyanocobalamin 500 MCG Tablet 1000 MCG PO (09:32)
[2023-09-14] MEDS: Glucerna Shake 120 ML LIQUID PO ×3 (09:32→17:38)
[2023-09-14] MEDS: Cholecalciferol (Vit D3) 125 MCG CAPSULE (5,000 UNITS) PO (09:33)
[2023-09-14] MEDS: Isosorbide Mononitrate 60 MG Tablet PO (09:33)
[2023-09-14] MEDS: Tolterodine Tartrate 2 MG CAP.SA PO (09:33)
[2023-09-14] MEDS: Spironolactone 25 MG Tablet 12.5 MG PO (09:35)
[2023-09-14] MEDS: Menthol/Lanolin/Calamine/Znox 113 GM Tube 1 APPLIC TOPICAL ×2 (09:35→22:09)
[2023-09-14 09:36] VITALS: BP 138/62; PULSE 60
[2023-09-14] MEDS: DULoxetine Hcl 60 MG Capsule PO (09:36)
[2023-09-14] MEDS: Metoprolol Tartrate 50 MG Tablet PO ×2 (09:36→22:11)
[2023-09-14] MEDS: Nystatin Powder 15gm Bottle 1 APPLIC TOPICAL ×2 (09:54→22:10)
[2023-09-14] MEDS: Gabapentin 300 MG Capsule PO ×2 (10:01→22:14)
[2023-09-14] MEDS: 0.9% Saline Lock 10 ML Syringe IV ×2 (10:03→22:06)
[2023-09-14] MEDS: Acetaminophen 500 MG Tablet 1000 MG PO ×2 (11:22→17:40)
[2023-09-14] MEDS: Lidocaine 5% Patch 1 PATCH TOPICAL (11:22)
[2023-09-14 14:15] VITALS: BP 105/52; PULSE 60; RESP 20; TEMP 36.8; O2SAT 96
[2023-09-14] MEDS: Warfarin 0.5 MG, Warfarin 3 MG 3.5 MG PO (17:41)
--- NOTE | 2023-09-14 21:27 | NURSING ---
Midline no longer using and no blood return noted. Dr. Almanza updated N.O. to remove Midline entered.
[2023-09-14 22:11] VITALS: BP 148/59; PULSE 61
[2023-09-14] MEDS: Atorvastatin Calcium 20 MG Tablet PO (22:12)
[2023-09-14] MEDS: DULoxetine Hcl 30 MG Capsule PO (22:12)
[2023-09-14 22:23] VITALS: BP 148/59; PULSE 61
[2023-09-15] MEDS: Levothyroxine 50 MCG Tablet PO (05:40)
[2023-09-15] MEDS: Furosemide 40 MG Tablet PO ×2 (05:40→14:06)
[2023-09-15 06:34] LABS: Prothrombin Time (Protime)PT. 39.8 SECONDS (11.7-14.9)
[2023-09-15 06:45] LABS: International Normalized Ratio 4.2
--- NOTE | 2023-09-15 06:47 | NURSING ---
Maira JAY and this nurse informed Dr. Almanza of INR 4.2 via cortex.
[2023-09-15] MEDS: Isosorbide Mononitrate 60 MG Tablet PO (09:35)
[2023-09-15] MEDS: Cholecalciferol (Vit D3) 125 MCG CAPSULE (5,000 UNITS) PO (09:35)
[2023-09-15 09:36] VITALS: PULSE 60
[2023-09-15] MEDS: Cyanocobalamin 500 MCG Tablet 1000 MCG PO (09:36)
[2023-09-15] MEDS: Spironolactone 25 MG Tablet 12.5 MG PO (09:36)
[2023-09-15] MEDS: Tolterodine Tartrate 2 MG CAP.SA PO (09:36)
[2023-09-15] MEDS: Multivitamin (Healthy Eyes) Capsule 1 CAP PO ×2 (09:36→20:05)
[2023-09-15] MEDS: Glucerna Shake 120 ML LIQUID PO ×3 (09:36→16:47)
[2023-09-15] MEDS: DULoxetine Hcl 60 MG Capsule PO (09:36)
[2023-09-15] MEDS: Metoprolol Tartrate 50 MG Tablet PO ×2 (09:36→20:06)
[2023-09-15] MEDS: Nystatin Powder 15gm Bottle 1 APPLIC TOPICAL ×2 (09:37→20:04)
[2023-09-15] MEDS: Menthol/Lanolin/Calamine/Znox 113 GM Tube 1 APPLIC TOPICAL ×2 (09:37→20:03)
[2023-09-15] MEDS: Gabapentin 300 MG Capsule PO ×2 (09:38→20:10)
[2023-09-15 09:55] VITALS: BP 115/50; PULSE 60; RESP 16; TEMP 36.8; O2SAT 96
--- NOTE | 2023-09-15 10:42 | WOUNDNOTE ---
wound photo: right lateral ankle
--- NOTE | 2023-09-15 13:10 | SP.MBSS_ITS ---
Modified Barium Swallow Patient Information Study Date: 09/15/23 Study Time: 13:30 Direct Billable Minutes: 75 Total Minutes procedure & reportin Diagnosis: Debility R53.81 Referring Physician: Roberto Almanza Chi Reason for Referral: Objectively assess swallow function, assess risk for aspiration, and determine recommendations for least restrictive diet textures and compensatory strategies to improve safety of swallow. Medical History: The patient is a 87 F with multiple comorbidities on medications including warfarin for chronic A-fib who presented to [facility] ED w/ mechanical fall, closed head injury, complicated by NPH. She was admitted to TCU on 08/19/23 w/ debility following fall. ST initially consulted for cognitive assessment. Patient developed delirium/increased confusion compared to bL, however UA + for E. coli. She received 3 doses of IV Rocephin today and will continue on cefdinir for another 3 days as her E. coli was sensitive for Rocephin. BSE completed during TCU stay recommending minced and moist textures / thin liquids with total feed. Patient had improved alertness in session on 08/25/23 and tolerated diet well at bedside with FOOD SERVICE HELPER; however, 08/27/23 chest xray revealed, Right lower lung infiltrate increased since the previous exam could be due to superimposed pneumonia. Small right pleural effusion. She was referred for MBSS due to concerns for aspiration. MBSS 09/04 revealed moderate oropharyngeal dysphagia with silent aspiration of thin liquids and even sequential sips of mildly/nectar thick liquids. She was recommended for minced and moist textures / mildly thick liquids. She has since participated in dysphagia treatment to monitor diet tolerance, train in recommended aspiration precautions, and train in oropharyngeal strengthening. She was also advanced to regular textures / mildly thick liquids. The patient has been recommended for repeat MBSS to re-assess aspiration risk. PMH: Abnormal urine finding, Atherosclerotic cardiovascular disease, Bronchitis, CHF, Chronic lymphoid leukemia, Chronic pain, Complete heart block, COVID-19, DM type 2 with peripheral vascular complications, HTN, HLD, Macular degeneration, MA, TIA, URI (See EMR for full PMH). Current Diet Ordered: Regular textures / Mildly (nectar) thick liquids Dentition: Upper Dentures and Lower Dentures Mental Status: Impaired (required repetition to follow commands reliably [e.g. take a small sip]) Respiratory Status: Oxygenating on Room Air Penetration-Aspiration Scale Penetration-Aspiration Scale: OBJECTIVE ASSESSMENT OF SWALLOW FUNCTION (QUANTITATIVE ? PER TRIAL): PENETRATION / ASPIRATION SCALE (SHAHID): 1 = does not enter airway 2 = enters airway/above vocal folds/ejected 3 = enters airway/above vocal folds/not ejected 4 = enters airway/contacts vocal folds/ejected 5 = enters airway/contacts vocal folds/not ejected 6 = enters airway/below vocal folds/ejected 7 = enters airway/below vocal folds/not ejected despite effort 8 = enters airway/below vocal folds/no effort VIDEOFLOROSCOPIC SCALE SCORE (SHAHID): Grade I = aspiration of material that has penetrated into the laryngeal vestibule, intact cough reflex Grade II = aspiration < 10 % of the bolus, intact cough reflex Grade III = aspiration of < 10 % of the bolus, reduced cough reflex or aspiration of > 10 % of the bolus, intact cough reflex Grade IV = aspiration of > 10 % of the bolus, reduced cough reflex Penetration-Aspiration Scale Score Thin Liquid via teaspoon: Result: 2= enter airway/above vocal folds/ejected Thin Liquid via teaspoon Trial 2: Result: 1= does not enter airway Thin Liquid via large single sip: cup: Result: 2= enter airway/above vocal folds/ejected Hanska Thick Liquid via large single sip: cup: Result: 5= enters airways/contacts vocal folds/not ejected (no reflexive cough) Pudding via teaspoon: Result: 1= does not enter airway Thin Liquid via single sip: straw: Result: 5= enters airways/contacts vocal folds/not ejected (large sip - no reflexive cough) 1/2 Cookie: Result: 1= does not enter airway Thin Liquid via small single sip: cup: Result: 2= enter airway/above vocal folds/ejected Comment: Cued cough and re-swallow to clear residues in the laryngeal vestibule from previous trials - somewhat effective. Thin Liquid via small single sip: cup Trial 2: Result: 2= enter airway/above vocal folds/ejected Oral Phase Labial Seal: No Labial Escape Tongue Control During Bolus Hold: Posterior escape of less than half of bolus Bolus Preparation/Mastication: Disorganized chewing/mashing with solid pieces of bolus unchewed Bolus Transport/Lingual Motion: Delayed initiation of tongue motion Oral Residue: Residue collection on oral structures Pharyngeal Phase Initiation of Pharyngeal Swallow: Bolus head in pyriforms Soft Palate Elevation: No bolus between soft palate and pharyngeal wall Laryngeal Elevation: Partial superior movement thyroid cart/partial apprx aryt- epig petiole Anterior Hyoid Excursion: Complete anterior movement Epiglottic Movement: Complete inversion Laryngeal Vestibule Closure at Height of Swallow: Incomplete; narrow column of air/contrast in laryngeal vestibule Pharyngeal Stripping Wave: Present - complete Pharyngoesophageal Segment Opening: Complete distension and complete duration; no obstruction of flow Tongue Base Retraction: Narrow column of contrast between tongue base & post. pharyngeal wall Pharyngeal Residue: Trace residue within or on pharyngeal structures Esophageal Phase Esophageal Clearance: Complete clearance Treatment Strategies Effects of treatment strategies attemped:: Cough and re-swallow = somewhat effective. Decreased bolus size (liquids) = effective. Diagnosis/Impression Diagnosis: Mild-moderate oropharyngeal dysphagia R13.12 Impression: The oral phase is primarily marked by... -Decreased bolus control with <1/2 of the bolus spilling posteriorly to the pyriforms prior to swallow onset observed with one trial of thin liquids. -Delayed tongue motion for A-P transport. -Decreased mastication with small portion of the cookie un-chewed. The pharyngeal phase is primarily marked by... -Decreased airway closure during the swallow due to decreased laryngeal elevation. -Mildly decreased tongue base retraction with trace pharyngeal residue after the swallow. -Deep laryngeal penetration of large sips of thin and mildly/nectar thick liquids to the vocal folds without full ejection. No reflexive cough was observed, so FOOD SERVICE HELPER is concerned the patient is at risk for SILENT aspiration; however, no aspiration was observed during the exam. Use of cough and re-swallow was somewhat effective in decreasing aspiration risk. Recommendations Diet: Regular Textures and Thin Liquids Compensatory Strategies: Small Bites (Chew thoroughly), Small Sips (Intermittent cough and re-swallow), Slow Rate, Sitting upright and Remain sitting upright for 30 minutes after PO intake Supervision: 1:1 Close Supervision (OK for water unsupervised if oral care was completed after meal) Recommend Repeat Modified Barium Swallow: TBD Need for Skilled Speech Therapy Services: Yes Comment: -Recommend bolus control cup or straw - FOOD SERVICE HELPER provided family handouts for each. -Train the patient in use of strategies to decrease risk for aspiration. -Train the patient in oropharyngeal exercise program to improve airway closure and cough strength (Cristopher, effortful breath hold and swallow, falsetto exercise). Education Completed: 1. Described result of evaluation., 2. Pt understands evaluation & agrees with goals and treatment plan., 4. Family/caregivers understand evaluation & agree w/ goals & tx plan. and 7. Pt requires further ed ucation on strategies & risks. Status Active ST Patient: Active Contact Information [facility] Speech Therapy:: Opal Zavaleta M.A. CCC-FOOD SERVICE HELPER? Speech-Language Pathologist?? [facility] [address]?? [place] [address]?? [email or web address]?? [phone]
[2023-09-15 14:08] VITALS: BP 123/58; PULSE 60
--- NOTE | 2023-09-15 19:48 | PN.TCU_ITS ---
Subjective Subjective Resident seen, examined for regulatory visit. She has no new problems, concerns, issues, complaints. INR 4.2 today, warfarin 3.5mg held, monitor INR daily, restart warfarin when INR between 2-3. Resident had MBS today, diet now regular textures, thin liquids. Objective Data Objective Data Vital Signs: Vital Signs Temp Pulse Resp BP Pulse Ox O2 Del Method 98.2 F 60 16 123/58 H 96 Room Air 09/15/23 09:55 09/15/23 14:08 09/15/23 09:55 09/15/23 14:08 09/15/23 09:55 09/15/23 09:56 Oxygen Delivery Method Room Air Weight: 70.443 kg Body Mass Index (BMI) 24.3 Intake & Output: Intake and Output for Last 24 Hours 09/13/23 09/14/23 09/15/23 23:59 23:59 23:59 Intake Total 1080 / 1080 960 / 960 600 / 600 Balance 1080 / 1080 960 / 960 600 / 600 Lab / Micro Data 09/10/23 05:39 09/10/23 05:39 Labs: Laboratory Results - last 24 hr 09/15/23 05:35: PT 39.8 H, INR 4.2 H* Physical Exam Const alert General Appearance: cooperative HEENT normocephalic Eyes PERRL and EOMs intact bilaterally Neck supple, no JVD and no carotid bruits Resp normal respiratory effort, normal air movement and clear to auscultation bilaterally Cardio regular rate and regular rhythm GI normal to inspection, nondistended, normoactive bowel sounds, non-tender and non-distended Extremity normal capillary refill Extremity Narrative: Right lower extremity dressed, wound per wound nurse. General Extremity: Negative for edema Skin no rashes or lesions noted General Skin Exam: no breakdown Psych affect normal Appearance: appropriate Assessment & Plan Assessment/Plan (1) Debility: (2) Closed head injury: (3) NPH (normal pressure hydrocephalus): (4) UTI (urinary tract infection): (5) Coronary artery disease: (6) Type 2 diabetes mellitus with hyperglycemia: (7) Vitamin D deficiency: (8) Depression: (9) Neuropathic pain: (10) HLD (hyperlipidemia): QUALIFIERS: Hyperlipidemia type: pure hypercholesterolemia Q ualified Code(s): E78.00 - Pure hypercholesterolemia, unspecified; E78.0 - Pure hypercholesterolemia (11) Hypothyroidism: (12) Herpes zoster: (13) (HFpEF) heart failure with preserved ejection fraction: QUALIFIERS: Heart failure chronicity: chronic Qualified Code(s): I50.32 - Chronic diastolic (congestive) heart failure (14) Overactive bladder: (15) A-fib: QUALIFIERS: Atrial fibrillation type: longstanding persistent Q ualified Code(s): I48.11 - Longstanding persistent atrial fibrillation PLAN: Plan 87 year old female with below past medical history hospitalized for fall, closed head injury 2/2 UTI, complicated by NPH, admitted to TCU with debility, here for rehabilitation, strengthening, prior to discharge home with family. * Debility - PT/OT. * Cognition/Dysphagia - ST. * Pain - Tylenol 1000mg q6 prn pain (1-10), Lidoderm patch 1 patch td daily prn. * Bowel - senna/colace 2 tablets bid prn. * Adult immunization - Administer pneumonia vaccine, covid vaccine, flu vaccine as appropriate. * DVT prophylaxis - resident on warfarin. * Closed head injury - stable. * Hyperlipidemia - Atorvastatin 20mg qhs. * Vitamin D deficiency - Vitamin D 125mcg daily. * Vitamin B12 deficiency - Vitamin B12 1000mcg daily. 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 * HFpEF - Metoprolol 50mg bid, Isosorbide MN 60mg daily, Fuorsemide 40mg bidlx, Aldactone 12.5mg daily. * Neuropathic pain - Gabapentin 300mg tid. * Nutrition - Glucerna Shake 120ml tidcm. * Hypothyroidism - Levothyroxine 50mcg daily. * Skin irritation - Calmoseptine topical bid. * Macular degeneration - Healthy Eyes 1 cap bid. * Tinea Corporis - Nystatin powder topical bid. * Overactive bladder - Detrol 2mg daily. * Atrial fibrillation - Metoprolol 50mg bid, warfarin 3.5mg held, INR 4.2, monitor INR daily, restart warfarin when appropriate. * Anxiety - Lorazepam 0.5mg q4h prn.
[2023-09-15 20:00] VITALS: BP 145/59; PULSE 61
[2023-09-15] MEDS: DULoxetine Hcl 30 MG Capsule PO (20:05)
[2023-09-15 20:06] VITALS: BP 145/59; PULSE 61
[2023-09-15] MEDS: Atorvastatin Calcium 20 MG Tablet PO (20:06)
[2023-09-15] MEDS: Acetaminophen 500 MG Tablet 1000 MG PO (20:09)
[2023-09-16] MEDS: Levothyroxine 50 MCG Tablet PO (05:42)
[2023-09-16] MEDS: Furosemide 40 MG Tablet PO ×2 (05:42→13:00)
[2023-09-16 09:05] LABS: International Normalized Ratio 2.7; Prothrombin Time (Protime)PT. 28.4 SECONDS (11.7-14.9)
[2023-09-16] MEDS: Menthol/Lanolin/Calamine/Znox 113 GM Tube 1 APPLIC TOPICAL ×2 (09:25→22:35)
[2023-09-16] MEDS: Spironolactone 25 MG Tablet 12.5 MG PO (09:26)
[2023-09-16] MEDS: Cholecalciferol (Vit D3) 125 MCG CAPSULE (5,000 UNITS) PO (09:27)
[2023-09-16] MEDS: Cyanocobalamin 500 MCG Tablet 1000 MCG PO (09:27)
[2023-09-16] MEDS: Nystatin Powder 15gm Bottle 1 APPLIC TOPICAL ×2 (09:27→22:35)
[2023-09-16 09:28] VITALS: BP 131/55; PULSE 59
[2023-09-16] MEDS: Tolterodine Tartrate 2 MG CAP.SA PO (09:28)
[2023-09-16] MEDS: Isosorbide Mononitrate 60 MG Tablet PO (09:28)
[2023-09-16] MEDS: Metoprolol Tartrate 50 MG Tablet PO ×2 (09:28→22:34)
[2023-09-16] MEDS: Multivitamin (Healthy Eyes) Capsule 1 CAP PO ×2 (09:28→22:34)
[2023-09-16] MEDS: DULoxetine Hcl 60 MG Capsule PO (09:28)
[2023-09-16] MEDS: Gabapentin 300 MG Capsule PO ×2 (09:31→22:33)
[2023-09-16] MEDS: Glucerna Shake 120 ML LIQUID PO ×3 (09:31→17:35)
[2023-09-16] MEDS: Acetaminophen 500 MG Tablet 1000 MG PO (09:31)
[2023-09-16 09:37] VITALS: BP 131/55; PULSE 59
[2023-09-16 09:39] VITALS: BMI 24.8
[2023-09-16] MEDS: Lidocaine 5% Patch 1 PATCH TOPICAL (11:04)
[2023-09-16 13:36] VITALS: BP 104/54; PULSE 60; RESP 14; TEMP 36.1; O2SAT 99
[2023-09-16 14:10] VITALS: PULSE 59; RESP 18; O2SAT 96
[2023-09-16 22:30] VITALS: BP 130/51; PULSE 59
[2023-09-16 22:34] VITALS: BP 130/51; PULSE 59
[2023-09-16] MEDS: Atorvastatin Calcium 20 MG Tablet PO (22:34)
[2023-09-16] MEDS: DULoxetine Hcl 30 MG Capsule PO (22:35)
[2023-09-17] MEDS: Furosemide 40 MG Tablet PO ×2 (05:20→08:38)
[2023-09-17] MEDS: Levothyroxine 50 MCG Tablet PO (05:21)
[2023-09-17 05:55] LABS: Absolute Lymphocyte Count 1.86 X10^3/uL (0.83-4.51); Absolute Neutrophil Count 6.9 X10^3/uL (2.0-7.7); Basophil# 0.01 X10^3/uL; Basophil% 0.1 % (0-1); Hematocrit 39.7 % (37-47); Hemoglobin 12.7 g/dL (12.0-15.0); Lymphocyte # 1.86 X10^3/ul (0.83-4.51); Lymphocyte % 19.3 % (19-41); Mean Corpuscular Volume 90.6 fL (81-99); Mean Platelet Vol. 10.8 fl (6.2-12.0); Monocyte# 0.73 X10^3/uL; Monocyte% 7.6 % (0-10); NRBC Flagged by Analyzer 0 % (0-5); Neutrophil # 6.87 X10^3/uL (2.7-7.7); Neutrophil % 71.5 % (47-70); Platelet Count 225 K/mm3 (150-450); RBC Distribution Width CV 13.4 % (11.6-14.6); RBC Distribution Width SD 44.3 fl (35.1-43.9); Red Blood Count 4.38 M/mm3 (4.2-5.4); White Blood Count 9.6 K/mm3 (4.4-11.0)
[2023-09-17 06:26] LABS: International Normalized Ratio 2.1; Prothrombin Time (Protime)PT. 23.7 SECONDS (11.7-14.9)
[2023-09-17 07:00] VITALS: BP 111/46; PULSE 60
[2023-09-17] MEDS: Glucerna Shake 120 ML LIQUID PO ×3 (08:36→16:56)
[2023-09-17] MEDS: Multivitamin (Healthy Eyes) Capsule 1 CAP PO ×2 (08:38→20:07)
[2023-09-17] MEDS: DULoxetine Hcl 60 MG Capsule PO (08:38)
[2023-09-17] MEDS: Isosorbide Mononitrate 60 MG Tablet PO (08:38)
[2023-09-17] MEDS: Cholecalciferol (Vit D3) 125 MCG CAPSULE (5,000 UNITS) PO (08:38)
[2023-09-17] MEDS: Cyanocobalamin 500 MCG Tablet 1000 MCG PO (08:38)
[2023-09-17] MEDS: Tolterodine Tartrate 2 MG CAP.SA PO (08:38)
[2023-09-17 08:39] VITALS: BP 118/59; PULSE 59
[2023-09-17] MEDS: Metoprolol Tartrate 50 MG Tablet PO ×2 (08:39→20:08)
[2023-09-17] MEDS: Spironolactone 25 MG Tablet 12.5 MG PO (08:39)
[2023-09-17] MEDS: Lidocaine 5% Patch 1 PATCH TOPICAL (08:44)
[2023-09-17] MEDS: Menthol/Lanolin/Calamine/Znox 113 GM Tube 1 APPLIC TOPICAL ×2 (08:49→20:07)
[2023-09-17] MEDS: Nystatin Powder 15gm Bottle 1 APPLIC TOPICAL ×2 (08:49→20:08)
[2023-09-17 08:51] VITALS: BP 118/59; PULSE 59
[2023-09-17 09:03] LABS: Anion Gap 7 (5-15); BUN 40 mg/dL (7-18); BUN/Creat Ratio 32.3 RATIO (10-20); Calcium,Total 9.3 mg/dL (8.5-10.1); Chloride 105 mmol/L (98-107); Creatinine, Serum 1.24 mg/dL (0.55-1.02); EST Glomerular Filtration Rate 43 mL/min (>60); Est Glom Filt Rate - Afr Amer 53 mL/min (>60); Estimated Creatinine Clearance 31.08 ml/min; Glucose 120 mg/dL (74-106); Potassium 4.5 mmol/L (3.5-5.1); Sodium Level 137 mmol/L (136-145)
[2023-09-17] MEDS: Gabapentin 300 MG Capsule PO ×2 (09:36→20:08)
[2023-09-17 11:25] VITALS: PULSE 60; RESP 18; O2SAT 96
[2023-09-17 13:52] VITALS: BP 121/60; PULSE 61; RESP 16; TEMP 36.4; O2SAT 99
[2023-09-17] MEDS: Acetaminophen 500 MG Tablet 1000 MG PO (13:54)
--- NOTE | 2023-09-17 14:11 | NURSING ---
DURING ASSESSMENT FOUND PT HAD A ABRASION ON RT CHEEK. ASKED PT WHAT HAPPENED PT STATED SHE DIDNT KNOW,MAYBE I SCRATCHED MY SELF LAST NIGHT SLEEPING. RN AWARE
--- NOTE | 2023-09-17 17:10 | CASEMGMT ---
Social Work SW met with patient and Jenny vu at bedside to discuss discharge plans. Jenny informed SW that she would like patient to continue therapy for one more week. SW discuss discharge date for transition of care to ECF- [facility]. Jenny informed SW that she would need to discuss discharge date with Anamika to identify date of availability to assist with transition patient to facility. Jenny informed SW that the patient is unaware of transfer to ECF. Jenny requested that medical team have a discussion regarding fdc care with patient. Jenny informed SW that the patient does not remember how she presented to TCU with significant cognitive changes. SW inquired about patient's memory regarding care planning meeting. Patient stated that she does not remember meeting with care team. SW informed patient that current transition of care plan is for 24/hr care in assisted living facility. Patient initially informed SW that she was not okay with plan. SW informed patient that she is being recommended for 24/hr care in facility due to cognition and concerns for falls. Jenny provided supportive concern for return home. Jenny informed patient that she will be going to [facility] due to proximity to family. Patient informed RODRIGUEZ and Jenny that she is okay with placement at this time. SW will continue to follow to coordinate discharge date. Discharge Plan: ECF [facility] PONCHO Bobby
[2023-09-17] MEDS: DULoxetine Hcl 30 MG Capsule PO (20:07)
[2023-09-17] MEDS: Atorvastatin Calcium 20 MG Tablet PO (20:07)
[2023-09-17 20:08] VITALS: BP 108/42; PULSE 61
[2023-09-18] MEDS: Levothyroxine 50 MCG Tablet PO (05:05)
[2023-09-18] MEDS: Furosemide 40 MG Tablet PO ×2 (05:05→13:41)
[2023-09-18 06:08] LABS: International Normalized Ratio 1.6; Prothrombin Time (Protime)PT. 19.1 SECONDS (11.7-14.9)
[2023-09-18] MEDS: Glucerna Shake 120 ML LIQUID PO ×3 (07:49→17:36)
[2023-09-18] MEDS: Spironolactone 25 MG Tablet 12.5 MG PO (07:49)
[2023-09-18] MEDS: Multivitamin (Healthy Eyes) Capsule 1 CAP PO ×2 (07:51→21:11)
[2023-09-18] MEDS: Tolterodine Tartrate 2 MG CAP.SA PO (07:51)
[2023-09-18] MEDS: DULoxetine Hcl 60 MG Capsule PO (07:51)
[2023-09-18] MEDS: Isosorbide Mononitrate 60 MG Tablet PO (07:51)
[2023-09-18] MEDS: Gabapentin 300 MG Capsule PO ×2 (07:53→21:16)
[2023-09-18] MEDS: Lidocaine 5% Patch 1 PATCH TOPICAL (07:53)
[2023-09-18] MEDS: Cyanocobalamin 500 MCG Tablet 1000 MCG PO (07:53)
[2023-09-18 07:54] VITALS: BP 136/54; PULSE 59
[2023-09-18] MEDS: Metoprolol Tartrate 50 MG Tablet PO ×2 (07:54→21:12)
[2023-09-18] MEDS: Cholecalciferol (Vit D3) 125 MCG CAPSULE (5,000 UNITS) PO (07:54)
[2023-09-18] MEDS: Menthol/Lanolin/Calamine/Znox 113 GM Tube 1 APPLIC TOPICAL ×2 (07:57→21:09)
[2023-09-18] MEDS: Nystatin Powder 15gm Bottle 1 APPLIC TOPICAL ×2 (07:58→21:13)
[2023-09-18 15:26] VITALS: BP 125/48; PULSE 60; RESP 17; TEMP 36.7; O2SAT 99
[2023-09-18] MEDS: DULoxetine Hcl 30 MG Capsule PO (21:11)
[2023-09-18] MEDS: Atorvastatin Calcium 20 MG Tablet PO (21:11)
[2023-09-18 21:12] VITALS: BP 107/50; PULSE 59
[2023-09-18 21:29] VITALS: BP 107/50; PULSE 59
[2023-09-18 22:00] VITALS: PULSE 60; O2SAT 98
[2023-09-19] MEDS: Levothyroxine 50 MCG Tablet PO (05:24)
[2023-09-19] MEDS: Furosemide 40 MG Tablet PO ×2 (05:24→13:44)
[2023-09-19 05:37] VITALS: PULSE 70; O2SAT 97
[2023-09-19 06:34] LABS: International Normalized Ratio 1.2; Prothrombin Time (Protime)PT. 15.5 SECONDS (11.7-14.9)
[2023-09-19] MEDS: Glucerna Shake 120 ML LIQUID PO ×3 (07:36→17:23)
[2023-09-19] MEDS: Menthol/Lanolin/Calamine/Znox 113 GM Tube 1 APPLIC TOPICAL ×2 (07:36→21:32)
[2023-09-19] MEDS: Spironolactone 25 MG Tablet 12.5 MG PO (07:36)
[2023-09-19] MEDS: Isosorbide Mononitrate 60 MG Tablet PO (07:37)
[2023-09-19] MEDS: Multivitamin (Healthy Eyes) Capsule 1 CAP PO ×2 (07:37→21:33)
[2023-09-19] MEDS: DULoxetine Hcl 60 MG Capsule PO (07:37)
[2023-09-19] MEDS: Nystatin Powder 15gm Bottle 1 APPLIC TOPICAL ×2 (07:37→21:33)
[2023-09-19] MEDS: Tolterodine Tartrate 2 MG CAP.SA PO (07:37)
[2023-09-19] MEDS: Lidocaine 5% Patch 1 PATCH TOPICAL (07:37)
[2023-09-19 07:38] VITALS: BP 124/53; PULSE 59
[2023-09-19] MEDS: Cholecalciferol (Vit D3) 125 MCG CAPSULE (5,000 UNITS) PO (07:38)
[2023-09-19] MEDS: Metoprolol Tartrate 50 MG Tablet PO ×2 (07:38→21:34)
[2023-09-19] MEDS: Gabapentin 300 MG Capsule PO ×3 (07:38→21:39)
[2023-09-19] MEDS: Cyanocobalamin 500 MCG Tablet 1000 MCG PO (07:38)
[2023-09-19 10:00] VITALS: BP 124/53; PULSE 59; RESP 16; TEMP 36.3; O2SAT 95
[2023-09-19] MEDS: Acetaminophen 500 MG Tablet 1000 MG PO ×2 (11:21→21:39)
--- NOTE | 2023-09-19 12:45 | NURSING ---
Updated patient and left VM with family updating them that a patient on the unit tested covid positive.
--- NOTE | 2023-09-19 15:43 | NURSING ---
Addendum entered by Estuardo Morocho 09/19/23 17:26: Pt. returned to unit at 1720 Original Note: Pt left unit kemal at 1500 for haircut.
--- NOTE | 2023-09-19 17:25 | PCA ---
Pt went to [facility], sister states they took hearing aids out for pt to get a perm and left hearing aids in car when they returned to unit
[2023-09-19] MEDS: DULoxetine Hcl 30 MG Capsule PO (21:33)
[2023-09-19 21:34] VITALS: BP 152/62; PULSE 65
[2023-09-19] MEDS: Atorvastatin Calcium 20 MG Tablet PO (21:34)
[2023-09-19 21:44] VITALS: BP 152/62; PULSE 65
[2023-09-20] MEDS: Levothyroxine 50 MCG Tablet PO (05:19)
[2023-09-20] MEDS: Gabapentin 300 MG Capsule PO ×4 (05:19→22:21)
[2023-09-20] MEDS: Furosemide 40 MG Tablet PO ×2 (05:19→14:11)
[2023-09-20 05:32] VITALS: PULSE 64; O2SAT 95
[2023-09-20 07:08] LABS: International Normalized Ratio 1.3; Prothrombin Time (Protime)PT. 15.7 SECONDS (11.7-14.9)
[2023-09-20] MEDS: Menthol/Lanolin/Calamine/Znox 113 GM Tube 1 APPLIC TOPICAL ×2 (07:38→22:22)
[2023-09-20] MEDS: Nystatin Powder 15gm Bottle 1 APPLIC TOPICAL ×2 (07:38→22:21)
[2023-09-20] MEDS: Spironolactone 25 MG Tablet 12.5 MG PO (07:38)
[2023-09-20] MEDS: Glucerna Shake 120 ML LIQUID PO ×3 (07:38→17:11)
[2023-09-20 07:39] VITALS: BP 140/65; PULSE 60
[2023-09-20] MEDS: Lidocaine 5% Patch 1 PATCH TOPICAL (07:39)
[2023-09-20] MEDS: Cholecalciferol (Vit D3) 125 MCG CAPSULE (5,000 UNITS) PO (07:39)
[2023-09-20] MEDS: Multivitamin (Healthy Eyes) Capsule 1 CAP PO ×2 (07:39→22:18)
[2023-09-20] MEDS: Isosorbide Mononitrate 60 MG Tablet PO (07:39)
[2023-09-20] MEDS: Tolterodine Tartrate 2 MG CAP.SA PO (07:39)
[2023-09-20] MEDS: DULoxetine Hcl 60 MG Capsule PO (07:39)
[2023-09-20] MEDS: Metoprolol Tartrate 50 MG Tablet PO ×2 (07:39→22:18)
[2023-09-20] MEDS: Cyanocobalamin 500 MCG Tablet 1000 MCG PO (07:39)
[2023-09-20 09:56] VITALS: BP 140/65; PULSE 60; RESP 16; TEMP 36.2; O2SAT 92
[2023-09-20 22:18] VITALS: BP 124/50; PULSE 60
[2023-09-20] MEDS: Atorvastatin Calcium 20 MG Tablet PO (22:18)
[2023-09-20] MEDS: DULoxetine Hcl 30 MG Capsule PO (22:18)
[2023-09-21] VITALS (7 sets, daily range): BP systolic 130–139; BP diastolic 55–63; PULSE 59–64; RESP 16; TEMP 36.3; O2SAT 96–98
[2023-09-21] MEDS: Gabapentin 300 MG Capsule PO ×4 (06:30→21:31)
[2023-09-21] MEDS: Furosemide 40 MG Tablet PO ×2 (06:33→13:37)
[2023-09-21] MEDS: Levothyroxine 50 MCG Tablet PO (06:33)
[2023-09-21] MEDS: Glucerna Shake 120 ML LIQUID PO ×2 (07:52→12:01)
[2023-09-21] MEDS: Lidocaine 5% Patch 1 PATCH TOPICAL (07:52)
[2023-09-21] MEDS: Menthol/Lanolin/Calamine/Znox 113 GM Tube 1 APPLIC TOPICAL ×2 (07:52→21:24)
[2023-09-21] MEDS: Nystatin Powder 15gm Bottle 1 APPLIC TOPICAL ×2 (07:52→21:23)
[2023-09-21] MEDS: DULoxetine Hcl 60 MG Capsule PO (07:53)
[2023-09-21] MEDS: Isosorbide Mononitrate 60 MG Tablet PO (07:53)
[2023-09-21] MEDS: Tolterodine Tartrate 2 MG CAP.SA PO (07:53)
[2023-09-21] MEDS: Multivitamin (Healthy Eyes) Capsule 1 CAP PO ×2 (07:53→21:26)
[2023-09-21] MEDS: Spironolactone 25 MG Tablet 12.5 MG PO (07:53)
[2023-09-21] MEDS: Cyanocobalamin 500 MCG Tablet 1000 MCG PO (07:53)
[2023-09-21] MEDS: Metoprolol Tartrate 50 MG Tablet PO ×2 (07:53→21:30)
[2023-09-21] MEDS: Cholecalciferol (Vit D3) 125 MCG CAPSULE (5,000 UNITS) PO (07:53)
[2023-09-21] MEDS: DULoxetine Hcl 30 MG Capsule PO (21:26)
[2023-09-21] MEDS: Atorvastatin Calcium 20 MG Tablet PO (21:26)
[2023-09-21] MEDS: Senna/Docusate Sodium 1 Tablet 2 TABLET PO (21:39)
--- NOTE | 2023-09-21 23:33 | NURSING ---
Patient given 2 senna S PRN and prune juice with butter for bowel protocol.
[2023-09-22 05:02] VITALS: PULSE 60; O2SAT 94
[2023-09-22] MEDS: Furosemide 40 MG Tablet PO ×2 (05:31→14:28)
[2023-09-22] MEDS: Levothyroxine 50 MCG Tablet PO (05:32)
[2023-09-22] MEDS: Gabapentin 300 MG Capsule PO ×2 (05:32→22:29)
[2023-09-22 07:26] LABS: International Normalized Ratio 1.6; Prothrombin Time (Protime)PT. 18.9 SECONDS (11.7-14.9)
[2023-09-22] MEDS: Lidocaine 5% Patch 1 PATCH TOPICAL (09:05)
[2023-09-22] MEDS: Spironolactone 25 MG Tablet 12.5 MG PO (09:05)
[2023-09-22 09:06] VITALS: PULSE 78
[2023-09-22] MEDS: Isosorbide Mononitrate 60 MG Tablet PO (09:06)
[2023-09-22] MEDS: Cholecalciferol (Vit D3) 125 MCG CAPSULE (5,000 UNITS) PO (09:06)
[2023-09-22] MEDS: DULoxetine Hcl 60 MG Capsule PO (09:06)
[2023-09-22] MEDS: Multivitamin (Healthy Eyes) Capsule 1 CAP PO ×2 (09:06→22:29)
[2023-09-22] MEDS: Cyanocobalamin 500 MCG Tablet 1000 MCG PO (09:06)
[2023-09-22] MEDS: Menthol/Lanolin/Calamine/Znox 113 GM Tube 1 APPLIC TOPICAL ×2 (09:06→22:30)
[2023-09-22] MEDS: Tolterodine Tartrate 2 MG CAP.SA PO (09:06)
[2023-09-22] MEDS: Nystatin Powder 15gm Bottle 1 APPLIC TOPICAL ×2 (09:06→22:30)
[2023-09-22] MEDS: Metoprolol Tartrate 50 MG Tablet PO (09:06)
[2023-09-22] MEDS: Glucerna Shake 120 ML LIQUID PO (12:10)
[2023-09-22 13:29] VITALS: BP 150/62; PULSE 60; RESP 18; TEMP 36.5; O2SAT 99
[2023-09-22] MEDS: Acetaminophen 500 MG Tablet 1000 MG PO (14:58)
[2023-09-22] MEDS: Atorvastatin Calcium 20 MG Tablet PO (22:30)
[2023-09-22 22:31] VITALS: BP 93/45; PULSE 58
[2023-09-22] MEDS: DULoxetine Hcl 30 MG Capsule PO (22:31)
[2023-09-23] VITALS (7 sets, daily range): BP systolic 113–131; BP diastolic 44–60; PULSE 59–64; RESP 18; TEMP 36.8; O2SAT 95–96; BMI 24.7
[2023-09-23] MEDS: Levothyroxine 50 MCG Tablet PO (05:20)
[2023-09-23] MEDS: Furosemide 40 MG Tablet PO ×2 (05:20→14:48)
[2023-09-23] MEDS: Gabapentin 300 MG Capsule PO ×3 (05:20→20:47)
[2023-09-23] MEDS: Glucerna Shake 120 ML LIQUID PO ×3 (10:16→17:51)
[2023-09-23] MEDS: Menthol/Lanolin/Calamine/Znox 113 GM Tube 1 APPLIC TOPICAL ×2 (10:16→20:43)
[2023-09-23] MEDS: Isosorbide Mononitrate 60 MG Tablet PO (10:17)
[2023-09-23] MEDS: DULoxetine Hcl 60 MG Capsule PO (10:17)
[2023-09-23] MEDS: Tolterodine Tartrate 2 MG CAP.SA PO (10:17)
[2023-09-23] MEDS: Cholecalciferol (Vit D3) 125 MCG CAPSULE (5,000 UNITS) PO (10:17)
[2023-09-23] MEDS: Multivitamin (Healthy Eyes) Capsule 1 CAP PO ×2 (10:17→20:44)
[2023-09-23] MEDS: Metoprolol Tartrate 50 MG Tablet PO ×2 (10:17→20:44)
[2023-09-23] MEDS: Spironolactone 25 MG Tablet 12.5 MG PO (10:18)
[2023-09-23] MEDS: Cyanocobalamin 500 MCG Tablet 1000 MCG PO (10:18)
[2023-09-23] MEDS: Nystatin Powder 15gm Bottle 1 APPLIC TOPICAL ×2 (10:19→20:45)
--- NOTE | 2023-09-23 12:05 | NURSING ---
Pt's sister at bedside, updated both that a pt on this unit tested Covid positive. no comments/concerns expressed at this time.
--- NOTE | 2023-09-23 13:30 | CASEMGMT ---
Social Work SW met with patient and sister, Anamika at bedside to discuss discharge. Anamika informed SW that she can provide transportation at any time to [facility]. SW inquired about discharge over weekend pending bed availability. Anamika is agreeable to discharge on 09/27/2023, if a bed is available at facility. RODRIGUEZ contacted [facility] to determine bed availability. Libra informed RODRIGUEZ that she will review bed availability and provide updates to RODRIGUEZ FRIAS awaiting confirmation of bed availability. PONCHO Bobby
[2023-09-23] MEDS: DULoxetine Hcl 30 MG Capsule PO (20:44)
[2023-09-23] MEDS: Atorvastatin Calcium 20 MG Tablet PO (20:44)
[2023-09-24 05:38] LABS: Absolute Neutrophil Count 6.1 X10^3/uL (2.0-7.7); Basophil# 0.01 X10^3/uL; Basophil% 0.1 % (0-1); Eosinophil# 0.11 X10^3/uL; Eosinophils% 1.3 % (0-5); Hemoglobin 12.2 g/dL (12.0-15.0); Lymphocyte % 18.6 % (19-41); Mean Corp Hgb Conc 32.1 g/dL (32-36); Mean Corpuscular Hgb 29.2 pg (27.0-32.0); Mean Corpuscular Volume 90.9 fL (81-99); Mean Platelet Vol. 10.3 fl (6.2-12.0); Monocyte# 0.75 X10^3/uL; Monocyte% 8.7 % (0-10); NRBC Flagged by Analyzer 0 % (0-5); Neutrophil # 6.09 X10^3/uL (2.7-7.7); Neutrophil % 70.8 % (47-70); Platelet Count 217 K/mm3 (150-450); RBC Distribution Width CV 13.7 % (11.6-14.6); RBC Distribution Width SD 45.9 fl (35.1-43.9); Red Blood Count 4.18 M/mm3 (4.2-5.4); White Blood Count 8.6 K/mm3 (4.4-11.0)
[2023-09-24] MEDS: Gabapentin 300 MG Capsule PO ×3 (05:44→20:07)
[2023-09-24] MEDS: Levothyroxine 50 MCG Tablet PO (05:44)
[2023-09-24] MEDS: Furosemide 40 MG Tablet PO ×2 (05:44→13:04)
[2023-09-24 06:00] LABS: Anion Gap 5 (5-15); BUN 36 mg/dL (7-18); Calcium,Total 9.4 mg/dL (8.5-10.1); Chloride 107 mmol/L (98-107); EST Glomerular Filtration Rate 45 mL/min (>60); Est Glom Filt Rate - Afr Amer 55 mL/min (>60); Estimated Creatinine Clearance 32.12 ml/min; Glucose 140 mg/dL (74-106); Potassium 4.3 mmol/L (3.5-5.1); Sodium Level 136 mmol/L (136-145)
--- NOTE | 2023-09-24 07:39 | DS.PCM_ITS ---
Providers Date of Admission: 08/19/23 Primary Care Physician: Dr. Susie Dang DO Consultations 08/25/23 15:39 Consult: Onc/Wound/insurance verification representative Routine Comment: Reason for Consult:: right lateral ankle Reason For Visit: FALL GENERALIZED WEAKNESS Diagnosis Discharge Diagnosis (1) Debility: Status: Acute Code(s): R53.81 - Other malaise (2) Closed head injury: Status: Acute Code(s): S09.90XA - Unspecified injury of head, initial encounter (3) NPH (normal pressure hydrocephalus): Status: Acute Code(s): G91.2 - (Idiopathic) normal pressure hydrocephalus (4) UTI (urinary tract infection): Status: Acute Code(s): N39.0 - Urinary tract infection, site not specified (5) Coronary artery disease: Status: Acute Code(s): I25.10 - Atherosclerotic heart disease of [place] coronary artery without angina pectoris (6) Type 2 diabetes mellitus with hyperglycemia: Status: Acute Code(s): E11.65 - Type 2 diabetes mellitus with hyperglycemia (7) Vitamin D deficiency: Status: Acute Code(s): E55.9 - Vitamin D deficiency, unspecified (8) Depression: Status: Acute Code(s): F32.A - Depression, unspecified (9) Neuropathic pain: Status: Acute Code(s): M79.2 - Neuralgia and neuritis, unspecified (10) HLD (hyperlipidemia): Status: Chronic Code(s): E78.5 - Hyperlipidemia, unspecified Qualifiers: Hyperlipidemia type: pure hypercholesterolemia Qualified Code(s): E 78.00 - Pure hypercholesterolemia, unspecified; E78.0 - Pure hypercholesterolemia (11) Hypothyroidism: Status: Acute Code(s): E03.9 - Hypothyroidism, unspecified (12) Herpes zoster: Status: Acute Code(s): B02.9 - Zoster without complications (13) (HFpEF) heart failure with preserved ejection fraction: Status: Acute Code(s): I50.30 - Unspecified diastolic (congestive) heart failure Qualifiers: Heart failure chronicity: chronic Qualified Code(s): I50.32 - Chronic diastolic (congestive) heart failure (14) Overactive bladder: Status: Acute Code(s): N32.81 - Overactive bladder (15) A-fib: Status: Acute Code(s): I48.91 - Unspecified atrial fibrillation Qualifiers: Atrial fibrillation type: longstanding persistent Qualified Code(s): I 48.11 - Longstanding persistent atrial fibrillation Plan 87 year old female with below past medical history hospitalized for fall, closed head injury 2/2 UTI, complicated by NPH, admitted to TCU with debility, here for rehabilitation, strengthening, prior to discharge home with family. * Debility - PT/OT. * Cognition/Dysphagia - ST. * Pain - Tylenol 1000mg q6 prn pain (1-10), Lidoderm patch 1 patch td daily prn. * Bowel - senna/colace 2 tablets bid prn. * Adult immunization - Administer pneumonia vaccine, covid vaccine, flu vaccine as appropriate. * DVT prophylaxis - resident on warfarin. * Closed head injury - stable. * Hyperlipidemia - Atorvastatin 20mg qhs. * Vitamin D deficiency - Vitamin D 125mcg daily. * Vitamin B12 deficiency - Vitamin B12 1000mcg daily. 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 * HFpEF - Metoprolol 50mg bid, Isosorbide MN 60mg daily, Fuorsemide 40mg bidlx, Aldactone 12.5mg daily. * Neuropathic pain - Gabapentin 300mg tid. * Nutrition - Glucerna Shake 120ml tidcm. * Hypothyroidism - Levothyroxine 50mcg daily. * Skin irritation - Calmoseptine topical bid. * Macular degeneration - Healthy Eyes 1 cap bid. * Tinea Corporis - Nystatin powder topical bid. * Overactive bladder - Detrol 2mg daily. * Atrial fibrillation - Metoprolol 50mg bid, warfarin 3.5mg held, INR 4.2, monitor INR daily, restart warfarin when appropriate. * Anxiety - Lorazepam 0.5mg q4h prn. Medications at Discharge Home Medications cholecalciferol (vitamin D3) 125 mcg (5,000 unit) capsule 1 tab PO DAILY supplement 05/18/15 duloxetine 60 mg capsule,delayed release 60 mg PO DAILY nerve pain 04/11/16 gabapentin 300 mg capsule 300 mg PO TID nerve pain 10/28/16 simvastatin 40 mg tablet 40 mg PO QHS cholestrol 10/28/16 cyanocobalamin (vitamin B-12) 500 mcg tablet 1,000 mcg PO DAILY supplement 11/26/17 levothyroxine 50 mcg tablet 50 mcg PO DAILY thyroid 12/24/17 vit C 250 mg-vit E 90 mg-zinc 40 mg-copper 1 zf-pemkte-grenni capsule (PreserVision AREDS-2) 1 tab PO BID Vision 01/24/21 metoprolol tartrate 50 mg tablet 50 mg PO BID BP #1 TAB 10/22/22 duloxetine 30 mg capsule,delayed release 30 mg PO QHS nerve pain 11/01/22 furosemide 40 mg tablet (Lasix) 40 mg PO BID fluid retention #180 tabs 01/30/23 isosorbide mononitrate 60 mg tablet,extended release 24 hr 60 mg PO DAILY heart failure 30 days #30 tabs 05/09/23 sennosides 8.6 mg-docusate sodium 50 mg tablet (Stool Softener-Stimulant Laxative) 2 tab PO BID PRN PRN Constipation #0 tabs 05/09/23 spironolactone 25 mg tablet 12.5 mg (1/2 x 25 mg) PO DAILY BP #45 tabs 07/03/23 oxybutynin chloride 10 mg tablet,extended release 24 hr 10 mg PO DAILY Bladder 08/14/23 acetaminophen 500 mg tablet 1,000 mg (2 x 500 mg) PO Q6H PRN PRN Pain Score 1-10 #0 tabs 09/24/23 lidocaine 5 % topical patch 1 patch topical DAILY #0 ea 09/24/23 menthol 0.44 %-zinc oxide 20.6 % topical ointment (Calmoseptine) 1 applic topical BID #0 grams 09/24/23 nutrition tx glu intol,lac-free,soy-fiber 0.06 gram-1.2 kcal/mL liquid (Glucerna 1.2 Anurag) 120 ml PO TIDCM #0 mL 09/24/23 nystatin 100,000 unit/gram topical powder (Nyamyc) 1 applic topical BID #0 grams 09/24/23 warfarin 3 mg tablet (Jantoven) 3 mg PO DINNER #0 tabs 09/24/23 Hospital Course Operations None Procedures None Summary of Care Provided Minutes Spent on Discharge: 35 Hospital Course: 87 year old female with below past medical history hospitalized for fall, closed head injury 2/2 UTI, complicated by NPH, admitted to TCU with debility, here for rehabilitation, strengthening, prior to discharge home with family. Discharge to [facility] 09/27/2023, intermediate, part B therapies. Physical Exam Const alert General Appearance: cooperative HEENT normocephalic Eyes PERRL and EOMs intact bilaterally Neck supple, no JVD and no carotid bruits Resp normal respiratory effort, normal air movement and clear to auscultation bilaterally Cardio regular rate and regular rhythm GI normal to inspection, nondistended, normoactive bowel sounds, non-tender and non-distended Extremity normal capillary refill General Extremity: Negative for edema Skin no rashes or lesions noted General Skin Exam: no breakdown Psych affect normal Appearance: appropriate Weight / BMI Weight Weight: 71.753 kg Body Mass Index (BMI) 24.7 ABG / Lab / Microbiology Data 09/24/23 05:08 09/24/23 05:08 Laboratory: Laboratory Results - last 24 hr 09/24/23 05:08: WBC 8.6, RBC 4.18 L, Hgb 12.2, Hct 38.0, MCV 90.9, MCH 29.2, MCHC 32.1, RDW Std Deviation 45.9 H, RDW Coeff of Patrice 13.7, Plt Count 217, MPV 10.3, Immature Gran % (Auto) 0.500, Neut % (Auto) 70.8 H, Lymph % (Auto) 18.6 L, [place] % (Auto) 8.7, Eos % (Auto) 1.3, Baso % (Auto) 0.1, Absolute Neuts (auto) 6.1, Absolute Lymphs (auto) 1.60, Nucleated RBC % 0, Sodium 136, Potassium 4.3, Chloride 107, Carbon Dioxide 24.0, Anion Gap 5, BUN 36 H, Creatinine 1.20 H, Estim Creat Clear Calc 32.12, Est GFR (MDRD) Af Amer 55 L, Est GFR (MDRD) Non-Af 45 L, BUN/Creatinine Ratio 30.0 H, Glucose 140 H, Calcium 9.4 Microbiology: Microbiology 09/19/23 10:00 Nasal Secretion SARS-CoV-2 Antigen (Rapid) - Final D/C Instructions Discharge Diet: No restrictions Discharge Activity: Return to Normal Activity, May Shower and Use Walker Weight Bearing Status: Weight bearing as tolerated Call your doctor if you observe: Fever of 101 or Higher, Inability to urinate, Inability to have a bowel movement, Shortness of breath, Dizziness, Fainting spells, Swelling in the ankles, Chest pain and Uncontrolled pain Additional Instructions: Discharge to [facility] 09/27/2023, intermediate, part B therapies. Please Follow Up With: Gisele Pitts, PA When: As scheduled. Meaningful Use Info Meaningful Use Meaningful Use Diagnoses (Choose all that apply): None applicable Ischemic Stroke Statin Dosing Therapy Reference: STATIN DOSE THERAPY REFERENCE: * Patients > 75 years receive moderate or high dose statin therapy. * Patients 75 years or YOUNGER should receive HIGH intensity statin dose unless contraindicated. You will be required to document reason for non-treatment if statin daily dose does not meet guidelines. HIGH DOSE STATIN THERAPY DAILY Atorvastatin > than or = to 40 mg Rosuvastatin > than or = to 20 mg Amlodipine + Atorvastatin > than or = to 2.5/40 mg Ezetimibe + Simvastatin 10/80 mg Simvastatin 80mg Discharge Plan Admission Admit Date/Time: 08/19/23 13:09 Primary Reason for Your Visit: Debility. Attending Provider: Roberto Almanza Chi Primary Care Provider: Susie Dang Instructions Additional Instructions / Restrictions: Discharge to [facility] 09/27/2023, intermediate, part B therapies. Discharge Orders/Prescriptions Prescriptions: New acetaminophen 500 mg Tablet 1,000 mg PO Q6H PRN PRN (Reason: Pain Score 1-10) Qty: 0 0RF lidocaine 5 % Adhesive Patch,Medicated 1 patch topical DAILY Qty: 0 0RF Protocol: *Topical Application Instructions APPLICATION INSTRUCTIONS: Apply to left shoulder as needed for pain d/t previous shingles area. Glucerna 1.2 Anurag 0.06-1.2 gram-kcal/mL Liquid 120 ml PO TIDCM Qty: 0 0RF menthol-zinc oxide [Calmoseptine] 0.44-20.6 % Ointment 1 applic topical BID Qty: 0 0RF Protocol: *Topical Application Instructions APPLICATION INSTRUCTIONS: NICOL BUTTOCKS/COCCYX nystatin [Nyamyc] 100,000 unit/gram Powder 1 applic topical BID Qty: 0 0RF Protocol: *Topical Application Instructions APPLICATION INSTRUCTIONS: GROIN/ABD FOLDS warfarin [Jantoven] 3 mg Tablet 3 mg PO DINNER Qty: 0 0RF Continued PreserVision AREDS-2 250-90-40-1 mg capsule 1 tab PO BID cholecalciferol (vitamin D3) 5,000 UNIT capsule 1 tab PO DAILY duloxetine 60 MG capsule,delayed release(DR/EC) 60 mg PO DAILY gabapentin 300 MG capsule 300 mg PO TID simvastatin 40 MG tablet 40 mg PO QHS cyanocobalamin (vitamin B-12) 500 MCG tablet 1,000 mcg PO DAILY levothyroxine 50 MCG tablet 50 mcg PO DAILY Patient Comments: luis 2 on Friday duloxetine 30 mg capsule,delayed release(DR/EC) 30 mg PO QHS Patient Comments: takes @ HS isosorbide mononitrate 60 mg Tablet Extended Release 24 Hr 60 mg PO DAILY 30 Days Qty: 30 2RF sennosides-docusate sodium [Stool Softener-Stimulant Laxat] 8.6-50 mg Tablet 2 tab PO BID PRN PRN (Reason: Constipation) Qty: 0 0RF oxybutynin chloride 10 mg tablet extended release 24hr 10 mg PO DAILY metoprolol tartrate 50 mg tablet 50 mg PO BID Qty: 1 0RF furosemide [Lasix] 40 mg tablet 40 mg PO BID Qty: 180 3RF spironolactone 25 mg tablet 12.5 mg PO DAILY Qty: 45 3RF Discontinued arginine (L-arginine) 500 MG tablet 500 mg PO BID Santyl 250 unit/gram ointment 1 applic topical DAILY Qty: 90 0RF warfarin 2 mg tablet 4 mg PO MOTUWETHFR Protocol: Dose Management Condition: Friday Dose/Route: 4 mg Instruction: 2 x 2 mg tablets Condition: Friday Dose/Route: 4 mg Instruction: 2 x 2 mg tablets Condition: Friday Dose/Route: 4 mg Instruction: 2 x 2 mg tablets Condition: Friday Dose/Route: 4 mg Instruction: 2 x 2 mg tablets Condition: Dose/Route: 0 mg Instruction: 0 tablets Condition: Friday Dose/Route: 0 mg Instruction: 0 tablets Condition: Friday Dose/Route: 4 mg Instruction: 2 x 2 mg tablets Protocol Text: Adjustment Start Date: 08/07/23 INR Value: 4.0 INR Date: 08/07/23 Recheck Date: 08/14/23 Rx Instructions: 4 mg orally FRIDAY-Friday and (6mg) ON Friday and Friday. aspirin [Adult Aspirin Regimen] 81 mg tablet,delayed release (DR/EC) 81 mg PO DAILY Referrals / Follow Up: Andreia Srivastava [Other] - 12/04/23 9:00 am (Neurologist follow-up) Susie Dang DO [Primary Care Provider] - James Cross MD [Non-Staff] - (Follow-up for normal pressure hydrocephalus) Charlie Gaffney MD [Med Staff - Active Staff] - (schedule appointment upon discharge) Disposition Disposition (needs filled in before D/C Order can be placed): NonSkilled NH/Intermed Care
--- NOTE | 2023-09-24 07:47 | TREXTCAR_ITS ---
Diet Diet Order/Speech Therapy: 08/27/23 09:44 Diet: Regular - General Food consistency:: Regular Liquid Consistency:: Regular/Thin Is pt able to select menu?: No Diet Comments: Direct sup - SMALL SIPS, meds whole 1 at a time. Routine Orders/Code Status Code Status: DNRCC-A (No intubation.) Wound(s) ABDOMEN: Wound Type: Abrasion RIGHT LE: Wound Type: Surgical Incision NICOL LEGS: Wound Type: Dry Patches r/t Sarcoidosis right lateral ankle: Wound Type: non heaing wound Dressing Change: AntiMicrobial (Aquacel AG, etc) Left inner elbow: Wound Type: Skin Tear Dressing Change: ADAPTIC RT CHEEK: Wound Type: Abrasion Therapies Weight Bearing: Weight bearing as tolerated Extremity Affected:: Bilateral Lower Physical Therapy: Eval and Treat Occupational Therapy: Eval and Treat Problem/Diagnosis (1) Debility: Status: Acute Code(s): R53.81 - Other malaise (2) Closed head injury: Status: Acute Code(s): S09.90XA - Unspecified injury of head, initial encounter (3) NPH (normal pressure hydrocephalus): Status: Acute Code(s): G91.2 - (Idiopathic) normal pressure hydrocephalus (4) UTI (urinary tract infection): Status: Acute Code(s): N39.0 - Urinary tract infection, site not specified (5) Coronary artery disease: Status: Acute Code(s): I25.10 - Atherosclerotic heart disease of [place] coronary artery without angina pectoris (6) Type 2 diabetes mellitus with hyperglycemia: Status: Acute Code(s): E11.65 - Type 2 diabetes mellitus with hyperglycemia (7) Vitamin D deficiency: Status: Acute Code(s): E55.9 - Vitamin D deficiency, unspecified (8) Depression: Status: Acute Code(s): F32.A - Depression, unspecified (9) Neuropathic pain: Status: Acute Code(s): M79.2 - Neuralgia and neuritis, unspecified (10) HLD (hyperlipidemia): Status: Chronic Code(s): E78.5 - Hyperlipidemia, unspecified (11) Hypothyroidism: Status: Acute Code(s): E03.9 - Hypothyroidism, unspecified (12) Herpes zoster: Status: Acute Code(s): B02.9 - Zoster without complications (13) (HFpEF) heart failure with preserved ejection fraction: Status: Acute Code(s): I50.30 - Unspecified diastolic (congestive) heart failure Comment: Patient has a history of hypertrophic obstructive cardiomyopathy status post myectomy at the time of her CABG. Recent echocardiogram May 07, 2023 showed an EF of 65%. Interventricular septum measured 1.8 cm with a posterior wall of 1.6 cm. Left ventricular/aortic valve mean gradient was 6 mmHg (14) Overactive bladder: Status: Acute Code(s): N32.81 - Overactive bladder (15) A-fib: Status: Acute Code(s): I48.91 - Unspecified atrial fibrillation Comment: The patient has permanent atrial fibrillation. She also has complete heart block and is controlled with a permanent pacemaker. Her pacer check when hospitalized in April 2023 showed normal function. Patient is due for pacer check today. Plan 87 year old female with below past medical history hospitalized for fall, closed head injury 2/2 UTI, complicated by NPH, admitted to TCU with debility, here for rehabilitation, strengthening, prior to discharge home with family. * Debility - PT/OT. * Cognition/Dysphagia - ST. * Pain - Tylenol 1000mg q6 prn pain (1-10), Lidoderm patch 1 patch td daily prn. * Bowel - senna/colace 2 tablets bid prn. * Adult immunization - Administer pneumonia vaccine, covid vaccine, flu vaccine as appropriate. * DVT prophylaxis - resident on warfarin. * Closed head injury - stable. * Hyperlipidemia - Atorvastatin 20mg qhs. * Vitamin D deficiency - Vitamin D 125mcg daily. * Vitamin B12 deficiency - Vitamin B12 1000mcg daily. * Depression - Duloxetine 60mg am, 30mg qhs, stable chronic correction use, GDR not recommended. * HFpEF - Metoprolol 50mg bid, Isosorbide MN 60mg daily, Fuorsemide 40mg bidlx, Aldactone 12.5mg daily. * Neuropathic pain - Gabapentin 300mg tid. * Nutrition - Glucerna Shake 120ml tidcm. * Hypothyroidism - Levothyroxine 50mcg daily. * Skin irritation - Calmoseptine topical bid. * Macular degeneration - Healthy Eyes 1 cap bid. * Tinea Corporis - Nystatin powder topical bid. * Overactive bladder - Detrol 2mg daily. * Atrial fibrillation - Metoprolol 50mg bid, warfarin 3.5mg held, INR 4.2, monitor INR daily, restart warfarin when appropriate. * Anxiety - Lorazepam 0.5mg q4h prn. Allergies/Procedures Done in Hospital Allergies amoxicillin trihydrate (From Augmentin) Adverse Reaction (Severe, Verified 09/05/23 13:01) Vomiting lidocaine Adverse Reaction (Severe, Verified 09/05/23 13:01) Other fainting, INJECTABLE ONLY Penicillins Adverse Reaction (Severe, Verified 09/05/23 13:01) Vomiting potassium clavulanate (From Augmentin) Adverse Reaction (Severe, Verified 09/05/23 13:01) Vomiting Procedures: None Type of Care/Length of Stay Estimated LOS: Convalescent Care Less Than 30 days Type of Care Needed: Intermediate Rehab Potential: Fair Prognosis: Fair Additional Orders/Day of Discharge Day of Discharge: 09/27/23 Dietary and Speech Recommendations Dietitian Recommendations/Changes: Continue liberal Regular diet w/ consistency per [employer]. Res to limit Vit K rich foods. Continue 120 ml glucerna shake tid w/ medpass Follow Up Care Please Follow Up With: Gisele Pitts, PA When: 3 Months from 09/05/23. Please Follow Up With: Dr. Andreia Srivastava Please Follow Up With: [facility] will see Gisele Pitts NP Please Follow Up With: Discharge Plan Admission Admit Date/Time: 08/19/23 13:09 Primary Reason for Your Visit: Debility. Attending Provider: Roberto Almanza Chi Primary Care Provider: Susie Dang Instructions Additional Instructions / Restrictions: Discharge to [facility] 09/27/2023, intermediate, part B therapies. Discharge Orders/Prescriptions Prescriptions: New acetaminophen 500 mg Tablet 1,000 mg PO Q6H PRN PRN (Reason: Pain Score 1-10) Qty: 0 0RF lidocaine 5 % Adhesive Patch,Medicated 1 patch topical DAILY Qty: 0 0RF Protocol: *Topical Application Instructions APPLICATION INSTRUCTIONS: Apply to left shoulder as needed for pain d/t previous shingles area. Glucerna 1.2 Anurag 0.06-1.2 gram-kcal/mL Liquid 120 ml PO TIDCM Qty: 0 0RF menthol-zinc oxide [Calmoseptine] 0.44-20.6 % Ointment 1 applic topical BID Qty: 0 0RF Protocol: *Topical Application Instructions APPLICATION INSTRUCTIONS: NICOL BUTTOCKS/COCCYX nystatin [Nyamyc] 100,000 unit/gram Powder 1 applic topical BID Qty: 0 0RF Protocol: *Topical Application Instructions APPLICATION INSTRUCTIONS: GROIN/ABD FOLDS warfarin [Jantoven] 3 mg Tablet 3 mg PO DINNER Qty: 0 0RF Continued PreserVision AREDS-2 250-90-40-1 mg capsule 1 tab PO BID cholecalciferol (vitamin D3) 5,000 UNIT capsule 1 tab PO DAILY duloxetine 60 MG capsule,delayed release(DR/EC) 60 mg PO DAILY gabapentin 300 MG capsule 300 mg PO TID simvastatin 40 MG tablet 40 mg PO QHS cyanocobalamin (vitamin B-12) 500 MCG tablet 1,000 mcg PO DAILY levothyroxine 50 MCG tablet 50 mcg PO DAILY Patient Comments: tekes 2 on Friday duloxetine 30 mg capsule,delayed release(DR/EC) 30 mg PO QHS Patient Comments: takes @ HS isosorbide mononitrate 60 mg Tablet Extended Release 24 Hr 60 mg PO DAILY 30 Days Qty: 30 2RF sennosides-docusate sodium [Stool Softener-Stimulant Laxat] 8.6-50 mg Tablet 2 tab PO BID PRN PRN (Reason: Constipation) Qty: 0 0RF oxybutynin chloride 10 mg tablet extended release 24hr 10 mg PO DAILY metoprolol tartrate 50 mg tablet 50 mg PO BID Qty: 1 0RF furosemide [Lasix] 40 mg tablet 40 mg PO BID Qty: 180 3RF spironolactone 25 mg tablet 12.5 mg PO DAILY Qty: 45 3RF Discontinued arginine (L-arginine) 500 MG tablet 500 mg PO BID Santyl 250 unit/gram ointment 1 applic topical DAILY Qty: 90 0RF warfarin 2 mg tablet 4 mg PO MOTUWETHFR Protocol: Dose Management Condition: Friday Dose/Route: 4 mg Instruction: 2 x 2 mg tablets Condition: Friday Dose/Route: 4 mg Instruction: 2 x 2 mg tablets Condition: Friday Dose/Route: 4 mg Instruction: 2 x 2 mg tablets Condition: Friday Dose/Route: 4 mg Instruction: 2 x 2 mg tablets Condition: Dose/Route: 0 mg Instruction: 0 tablets Condition: Friday Dose/Route: 0 mg Instruction: 0 tablets Condition: Friday Dose/Route: 4 mg Instruction: 2 x 2 mg tablets Protocol Text: Adjustment Start Date: 08/07/23 INR Value: 4.0 INR Date: 08/07/23 Recheck Date: 08/14/23 Rx Instructions: 4 mg orally FRIDAY-Friday and (6mg) ON Friday and Friday. aspirin [Adult Aspirin Regimen] 81 mg tablet,delayed release (DR/EC) 81 mg PO DAILY Referrals / Follow Up: Andreia Srivastava [Other] - 12/04/23 9:00 am (Neurologist follow-up) Susie Dang DO [Primary Care Provider] - James Cross MD [Non-Staff] - (Follow-up for normal pressure hydrocephalus) Charlie Gaffney MD [Med Staff - Active Staff] - (schedule appointment upon discharge) Disposition Disposition (needs filled in before D/C Order can be placed): NonSkilled NH/Intermed Care (10) HLD (hyperlipidemia) Qualifiers: Hyperlipidemia type: pure hypercholesterolemia Qualified Code(s): E78.00 - Pure hypercholesterolemia, unspecified; E78.0 - Pure hypercholesterolemia (13) (HFpEF) heart failure with preserved ejection fraction Qualifiers: Heart failure chronicity: chronic Qualified Code(s): I50.32 - Chronic diastolic (congestive) heart failure (15) A-fib Qualifiers: Atrial fibrillation type: longstanding persistent Qualified Code(s): I48.11 - Longstanding persistent atrial fibrillation
--- NOTE | 2023-09-24 08:37 | WOUNDNOTE ---
Pt had removed the dressing to the right lateral ankle yesterday so the dressing was changed. will plan to assess with next dressing change. pt out in common area at this time eating breakfast.
[2023-09-24 09:49] LABS: Mucous, Urine 0 SEEN /hpf (<or=2+)
[2023-09-24] MEDS: Lidocaine 5% Patch 1 PATCH TOPICAL (09:49)
[2023-09-24] MEDS: Spironolactone 25 MG Tablet 12.5 MG PO (09:50)
[2023-09-24 09:51] LABS: Color, Urine Yellow (Yellow); Glucose, Dipstick Normal (Normal); Ketone-Dipstick Negative (Negative); Leukocyte Esterase-Dipstick 500 /ul (Negative); Nitrite-Dipstick Positive (Negative); Occult Blood-Urine 25 /ul (Negative); Protein-Dipstick 30 mg/dl (Negative); Specific Gravity, Urine 1.015 (1.002-1.030); Urine Bilirubin Dipstick Negative (Negative); Urine Clarity Cloudy (Clear); Urine Urobilinogen Normal (Normal)
[2023-09-24] MEDS: Menthol/Lanolin/Calamine/Znox 113 GM Tube 1 APPLIC TOPICAL ×2 (09:51→20:00)
[2023-09-24] MEDS: DULoxetine Hcl 60 MG Capsule PO (09:51)
[2023-09-24] MEDS: Multivitamin (Healthy Eyes) Capsule 1 CAP PO ×2 (09:51→20:04)
[2023-09-24 09:52] VITALS: BP 146/55; PULSE 61
[2023-09-24] MEDS: Metoprolol Tartrate 50 MG Tablet PO ×2 (09:52→20:02)
[2023-09-24] MEDS: Nystatin Powder 15gm Bottle 1 APPLIC TOPICAL ×2 (09:52→20:02)
[2023-09-24] MEDS: Cyanocobalamin 500 MCG Tablet 1000 MCG PO (09:53)
[2023-09-24] MEDS: Isosorbide Mononitrate 60 MG Tablet PO (09:53)
[2023-09-24] MEDS: Cholecalciferol (Vit D3) 125 MCG CAPSULE (5,000 UNITS) PO (09:53)
[2023-09-24] MEDS: Tolterodine Tartrate 2 MG CAP.SA PO (09:53)
[2023-09-24] MEDS: Glucerna Shake 120 ML LIQUID PO ×2 (09:54→16:36)
[2023-09-24 09:57] LABS: Bacteria 3+ /hpf (None Seen); Red Blood Cells-Urine 0-5 SEEN /hpf (0-5); Squamous Epithelial Cells - UA 0-5 SEEN /hpf (5-10); White Blood Cells 50-100 SEEN /hpf (0-5)
[2023-09-24 09:59] VITALS: BP 146/55; PULSE 61; O2SAT 97
[2023-09-24 10:10] VITALS: PULSE 61; RESP 18; O2SAT 97
--- NOTE | 2023-09-24 11:46 | NURSING ---
UA/CULTURE DONE PER ORDER. PER NEW ORDER FOR [facility] FOR 7 DAYS. FAMILY AWARE.
[2023-09-24] MEDS: Ciprofloxacin 250 MG Tablet PO ×2 (13:01→20:05)
[2023-09-24] MEDS: Acetaminophen 500 MG Tablet 1000 MG PO (13:01)
--- NOTE | 2023-09-24 13:45 | CASEMGMT ---
Addendum entered by Red Higgins 09/24/23 18:02: RODRIGUEZ spoke with Jenny vu at bedside regarding placement. Jenny would like patient to continue receiving nursing support at [facility]. SW discussed intermediate care with Jenny. Jenny informed SW that she does not want patient discharged to assisted living. Patient to transition to nursing care. Jenny was agreeable to discharge. Jenny complete Notice of Medicare Non-Coverage for current prison services: 09/26/2023 last covered day. Patient anticipates discharge on 09/27/2023. Patient's sisterAnamika will provide transportation to facility. SW notified [facility] of family request. Supportive clinical documentation was submitted. Original Note: Social Work SW received notification from PT that the patient's sister is concerned about patient discharging to facility. SW met with patient and sister, Anamika in activities area. Anamika informed SW that she would like patient to receive more therapy and support prior to transitioning to independent care at [facility]. SW informed Anamika that the patient is transitioning under intermediate care with Medicare Part B outpatient therapy- potential reassessment for skilled services. Anamika informed SW that she is unsure about level of care patient will provide. SW inquired about family discussion regarding placement. 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 SW contacted [facility] to inform of family request for continued rehabilitation. SW awaiting follow up from [facility]. SW will continue to follow to support discharge. PONCHO Bobby
[2023-09-24 13:48] VITALS: BP 113/55; PULSE 61; RESP 16; TEMP 36.2; O2SAT 98
--- NOTE | 2023-09-24 18:28 | NURSING ---
PT HAS A RED/RAISED/WICHITA AREA ON RT SIDE OF ABDOMINAL. PT STATED NO PAIN OR ITCHING. HAD LOOK AT IT. NEW ORDER FOR BACITRACIN.
[2023-09-24] MEDS: BACITRACIN 15 GM Tube 1 APPLIC TOPICAL (19:59)
[2023-09-24 20:02] VITALS: BP 123/60; PULSE 60
[2023-09-24] MEDS: DULoxetine Hcl 30 MG Capsule PO (20:04)
[2023-09-24] MEDS: Atorvastatin Calcium 20 MG Tablet PO (20:04)
[2023-09-24 20:12] VITALS: BP 123/60; PULSE 60
[2023-09-25 04:50] VITALS: PULSE 60; O2SAT 96
[2023-09-25 05:41] LABS: International Normalized Ratio 1.8; Prothrombin Time (Protime)PT. 20.5 SECONDS (11.7-14.9)
[2023-09-25] MEDS: Levothyroxine 50 MCG Tablet PO (05:42)
[2023-09-25] MEDS: Furosemide 40 MG Tablet PO ×2 (05:42→13:07)
[2023-09-25] MEDS: Gabapentin 300 MG Capsule PO ×3 (05:42→21:58)
[2023-09-25] MEDS: Tolterodine Tartrate 2 MG CAP.SA PO (08:37)
[2023-09-25] MEDS: DULoxetine Hcl 60 MG Capsule PO (08:37)
[2023-09-25 08:38] VITALS: BP 131/55; PULSE 61
[2023-09-25] MEDS: Cholecalciferol (Vit D3) 125 MCG CAPSULE (5,000 UNITS) PO (08:38)
[2023-09-25] MEDS: Metoprolol Tartrate 50 MG Tablet PO ×2 (08:38→22:00)
[2023-09-25] MEDS: Ciprofloxacin 250 MG Tablet PO ×2 (08:38→22:00)
[2023-09-25] MEDS: Cyanocobalamin 500 MCG Tablet 1000 MCG PO (08:38)
[2023-09-25] MEDS: Multivitamin (Healthy Eyes) Capsule 1 CAP PO ×2 (08:38→22:00)
[2023-09-25] MEDS: Isosorbide Mononitrate 60 MG Tablet PO (08:39)
[2023-09-25] MEDS: Menthol/Lanolin/Calamine/Znox 113 GM Tube 1 APPLIC TOPICAL ×2 (08:39→21:54)
[2023-09-25] MEDS: Lidocaine 5% Patch 1 PATCH TOPICAL (08:39)
[2023-09-25] MEDS: BACITRACIN 15 GM Tube 1 APPLIC TOPICAL ×2 (08:40→22:02)
[2023-09-25] MEDS: Spironolactone 25 MG Tablet 12.5 MG PO (08:40)
[2023-09-25] MEDS: Nystatin Powder 15gm Bottle 1 APPLIC TOPICAL ×2 (08:41→21:55)
[2023-09-25 08:52] VITALS: BP 131/55; PULSE 61
--- NOTE | 2023-09-25 11:28 | WOUNDNOTE ---
wound photo: right lateral ankle
[2023-09-25] MEDS: Glucerna Shake 120 ML LIQUID PO ×2 (13:06→16:55)
--- NOTE | 2023-09-25 13:19 | MDS.RN ---
Pain interview for MDS completed.
[2023-09-25 13:38] VITALS: BP 125/53; PULSE 60; RESP 16; TEMP 36.6; O2SAT 100
[2023-09-25] MEDS: Acetaminophen 500 MG Tablet 1000 MG PO (15:34)
[2023-09-25] MEDS: DULoxetine Hcl 30 MG Capsule PO (21:59)
[2023-09-25 22:00] VITALS: BP 122/49; PULSE 62
[2023-09-25] MEDS: Atorvastatin Calcium 20 MG Tablet PO (22:00)
[2023-09-26 06:00] VITALS: BP 126/53; PULSE 59
[2023-09-26] MEDS: Levothyroxine 50 MCG Tablet PO (06:04)
[2023-09-26] MEDS: Furosemide 40 MG Tablet PO ×2 (06:04→13:08)
[2023-09-26] MEDS: Gabapentin 300 MG Capsule PO ×3 (06:04→22:15)
[2023-09-26] MEDS: Glucerna Shake 120 ML LIQUID PO ×3 (08:01→17:04)
[2023-09-26] MEDS: BACITRACIN 15 GM Tube 1 APPLIC TOPICAL ×2 (08:02→22:15)
[2023-09-26] MEDS: Spironolactone 25 MG Tablet 12.5 MG PO (08:02)
[2023-09-26 08:03] VITALS: BP 136/65; PULSE 61
[2023-09-26] MEDS: Metoprolol Tartrate 50 MG Tablet PO ×2 (08:03→22:17)
[2023-09-26] MEDS: Isosorbide Mononitrate 60 MG Tablet PO (08:03)
[2023-09-26] MEDS: Ciprofloxacin 250 MG Tablet PO ×2 (08:03→22:18)
[2023-09-26] MEDS: Menthol/Lanolin/Calamine/Znox 113 GM Tube 1 APPLIC TOPICAL ×2 (08:03→22:16)
[2023-09-26] MEDS: DULoxetine Hcl 60 MG Capsule PO (08:03)
[2023-09-26] MEDS: Tolterodine Tartrate 2 MG CAP.SA PO (08:03)
[2023-09-26] MEDS: Lidocaine 5% Patch 1 PATCH TOPICAL (08:03)
[2023-09-26] MEDS: Multivitamin (Healthy Eyes) Capsule 1 CAP PO ×2 (08:03→22:19)
[2023-09-26] MEDS: Cyanocobalamin 500 MCG Tablet 1000 MCG PO (08:04)
[2023-09-26] MEDS: Nystatin Powder 15gm Bottle 1 APPLIC TOPICAL ×2 (08:04→22:15)
[2023-09-26] MEDS: Cholecalciferol (Vit D3) 125 MCG CAPSULE (5,000 UNITS) PO (08:04)
--- NOTE | 2023-09-26 14:50 | CASEMGMT ---
MDS- DISCHARGE ASSESSMENT Met with patient for discharge MDS interview. Introduced to self and role. BIMS: 03/28 - missing points for month (answered October), and on recall needed cueing for Sock and Bed. PH9: 05/10 (tired/little energy over several days). Denies any feelings of social isolation. No signs or indications delirium or behaviors during assessment. Patient aware of planned discharge date and destination of [facility]. Reports agreement with discharge planning. -RAMIREZ Tim
[2023-09-26 14:54] VITALS: BP 136/65; PULSE 61; RESP 16; TEMP 36.1; O2SAT 99
--- NOTE | 2023-09-26 19:00 | CASEMGMT ---
Social Work - discharge note Patient's last covered day today. Planned discharged 09.27.2023 to [facility] level of care. PASRR screen completed via the [employer] system. Copy made for chart and for the [facility]. [facility] Both documents placed in manilla envelope at nurses station to accompany patient to the [facility]. Called patient's niece Jenny ([facility]) who confirms that family to transport patient after lunch on 09.27.2023. Message to [facility] via [employer] regarding discharge timeframes. Noted Trasnfer summary has been uploaded into [employer] already. No other services requested or indicated. PLAN: [facility] LOC. -RAMIREZ Tim
[2023-09-26 22:17] VITALS: BP 117/53; PULSE 60
[2023-09-26] MEDS: Atorvastatin Calcium 20 MG Tablet PO (22:19)
[2023-09-26] MEDS: DULoxetine Hcl 30 MG Capsule PO (22:19)
[2023-09-27 05:26] VITALS: BP 131/60; PULSE 59
[2023-09-27] MEDS: Gabapentin 300 MG Capsule PO (05:29)
[2023-09-27] MEDS: Furosemide 40 MG Tablet PO (05:29)
[2023-09-27] MEDS: Levothyroxine 50 MCG Tablet PO (05:29)
[2023-09-27 09:28] VITALS: BP 158/65; PULSE 63; RESP 16; TEMP 36.1; O2SAT 100
[2023-09-27] MEDS: Glucerna Shake 120 ML LIQUID PO (09:30)
[2023-09-27] MEDS: Spironolactone 25 MG Tablet 12.5 MG PO (09:31)
[2023-09-27 09:32] VITALS: PULSE 63
[2023-09-27] MEDS: DULoxetine Hcl 60 MG Capsule PO (09:32)
[2023-09-27] MEDS: Cyanocobalamin 500 MCG Tablet 1000 MCG PO (09:32)
[2023-09-27] MEDS: Tolterodine Tartrate 2 MG CAP.SA PO (09:32)
[2023-09-27] MEDS: Metoprolol Tartrate 50 MG Tablet PO (09:32)
[2023-09-27] MEDS: Ciprofloxacin 250 MG Tablet PO (09:32)
[2023-09-27] MEDS: Multivitamin (Healthy Eyes) Capsule 1 CAP PO (09:32)
[2023-09-27] MEDS: Isosorbide Mononitrate 60 MG Tablet PO (09:32)
[2023-09-27] MEDS: Lidocaine 5% Patch 1 PATCH TOPICAL (09:33)
[2023-09-27] MEDS: Menthol/Lanolin/Calamine/Znox 113 GM Tube 1 APPLIC TOPICAL (09:34)
[2023-09-27] MEDS: Cholecalciferol (Vit D3) 125 MCG CAPSULE (5,000 UNITS) PO (09:34)
[2023-09-27] MEDS: BACITRACIN 15 GM Tube 1 APPLIC TOPICAL (09:34)
[2023-09-27] MEDS: Nystatin Powder 15gm Bottle 1 APPLIC TOPICAL (09:35)
--- NOTE | 2023-09-27 12:32 | NURSING ---
report called to Mae at [facility] at this time.
== END 2023-09-27 12:37 | disposition intermediate care facility (04) | DRG 689 ==
PROVIDERS: Admitting Provider Family Medicine Geriatric Medicine; PCP Internal Medicine; Referring Provider Family Medicine Geriatric Medicine; Visit Provider Family Medicine Geriatric Medicine
DX: N39.0 Urinary tract infection, site not specified (principal); J18.9 Pneumonia, unspecified organism; I44.2 Atrioventricular block, complete; G91.2 (Idiopathic) normal pressure hydrocephalus; I42.1 Obstructive hypertrophic cardiomyopathy; I48.19 Other persistent atrial fibrillation; L97.919 Non-pressure chronic ulcer of unspecified part of right lower leg with unspecified severity; I50.32 Chronic diastolic (congestive) heart failure; E11.622 Type 2 diabetes mellitus with other skin ulcer; I11.0 Hypertensive heart disease with heart failure; E11.65 Type 2 diabetes mellitus with hyperglycemia; E11.40 Type 2 diabetes mellitus with diabetic neuropathy, unspecified; E03.9 Hypothyroidism, unspecified; F32.A Depression, unspecified; I69.820 Aphasia following other cerebrovascular disease; E78.00 Pure hypercholesterolemia, unspecified; I25.10 Atherosclerotic heart disease of native coronary artery without angina pectoris; W19.XXXD Unspecified fall, subsequent encounter; E55.9 Vitamin D deficiency, unspecified; E53.8 Deficiency of other specified B group vitamins; H35.30 Unspecified macular degeneration; F41.9 Anxiety disorder, unspecified; S00.03XD Contusion of scalp, subsequent encounter; B96.20 Unspecified Escherichia coli [E. coli] as the cause of diseases classified elsewhere; Z95.5 Presence of coronary angioplasty implant and graft; Z86.16 Personal history of COVID-19; R27.0 Ataxia, unspecified; R32 Unspecified urinary incontinence; Z79.899 Other long term (current) drug therapy; Z79.82 Long term (current) use of aspirin; Z79.01 Long term (current) use of anticoagulants; Z79.890 Hormone replacement therapy; Z95.0 Presence of cardiac pacemaker; B35.4 Tinea corporis; B02.9 Zoster without complications; N32.81 Overactive bladder
CPT/HCPCS: 36415; 71046; 74230; 80048; 81001; 82962; 85025; 85610; 87077; 87086; 87088; 87186; 87811; 92507; 92508; 92523; 92526; 92610; 92611; 97110; 97116; 97162; 97166; 97530; 97535; 97802; 97803; J7030; J7050; A4216; J1940

== ENCOUNTER 2023-08-20 16:10 | Emergency (ER) | payer MEDICARE, OTHER, SELFPAY ==
[2023-08-20 16:11] VITALS: BP 163/52; PULSE 60; RESP 18; TEMP 36.8; TEMP 37.2; O2SAT 97; BMI 26.4
--- NOTE | 2023-08-20 16:27 | EDS_ITS ---
HPI History of Present Illness Chief Complaint: Alt LOC Informant: patient and family Narrative Narrative: Sent down from TCU for evaluation for altered mental status. She has been there 1 day. Family clinic present. Recent UTI on 3 days of IV antibiotics. Unclear if she is on oral antibiotics. Patient sleeping all day. States had a fall head injury CT scan done this morning showed no intracranial hemorrhage. She is sleeping all day therefore sent here for evaluation. Family confirms she was doing therapy yesterday. She did not herself. There is been no cough. No vomiting or diarrhea. She is on warfarin for history of A-fib. 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 heart disease of [place] coronary artery without angina pectoris Bronchitis Chronic diastolic (congestive) heart failure Chronic lymphoid leukemia Chronic pain Complete heart block COVID-19 DM (diabetes mellitus), type 2 with peripheral vascular complications Essential (primary) hypertension Gout HLD (hyperlipidemia) Hypogammaglobulinemia, acquired Left bundle branch block (LBBB) Macular degeneration Mitral valve annular calcification Myocardial infarct Non-smoker Nonrheumatic mitral (valve) insufficiency Nonsustained ventricular tachycardia Obstructive hypertrophic cardiomyopathy Other specified transient cerebral ischemias Pacemaker Peripheral edema Persistent atrial fibrillation Proteinuria Skin tear of left upper extremity TIA (transient ischemic attack) Uncontrolled hypertension URI (upper respiratory infection) Urinary frequency Home Medications cholecalciferol (vitamin D3) 125 mcg (5,000 unit) capsule 1 tab PO DAILY supplement 05/18/15 [History Last Taken 08/07/23] duloxetine 60 mg capsule,delayed release 60 mg PO DAILY nerve pain 04/11/16 [Hi story Last Taken 08/07/23] gabapentin 300 mg capsule 300 mg PO TID nerve pain 10/28/16 [History Last Taken 08/07/23] simvastatin 40 mg tablet 40 mg PO QHS cholestrol 10/28/16 [History Last Taken 08/18/23] arginine (L-arginine) 500 mg tablet 500 mg PO BID supplement 10/29/17 [History Last Taken 08/07/23] cyanocobalamin (vitamin B-12) 500 mcg tablet 1,000 mcg PO DAILY supplement 11/26/17 [History Last Taken 08/19/23] levothyroxine 50 mcg tablet 50 mcg PO DAILY thyroid 12/24/17 [History Last Taken 08/19/23] vit C 250 mg-vit E 90 mg-zinc 40 mg-copper 1 [id number] capsule (PreserVision AREDS-2) 1 tab PO BID Vision 01/24/21 [History Last Taken 08/19/23] acyclovir 800 mg tablet 800 mg PO BID HSV 05/16/21 [History Last Taken 08/19/23] metoprolol tartrate 50 mg tablet 50 mg PO BID BP #1 TAB 10/22/22 [Rx Last Taken 08/19/23] duloxetine 30 mg capsule,delayed release 30 mg PO QHS nerve pain 11/01/22 [History Last Taken Unknown] furosemide 40 mg tablet (Lasix) 40 mg PO BID fluid retention #180 tabs 01/30/23 [Rx Last Taken Unknown] isosorbide mononitrate 60 mg tablet,extended release 24 hr 60 mg PO DAILY heart failure 30 days #30 tabs 05/09/23 [Rx Last Taken 08/19/23] sennosides 8.6 mg-docusate sodium 50 mg tablet (Stool Softener-Stimulant Laxative) 2 tab PO BID PRN PRN Constipation #0 tabs 05/09/23 [Rx Last Taken Unknown] aspirin 81 mg tablet,delayed release (Adult Aspirin Regimen) 81 mg PO DAILY Heart health 06/17/23 [History Last Taken Unknown] spironolactone 25 mg tablet 12.5 mg (1/2 x 25 mg) PO DAILY BP #45 tabs 07/03/23 [Rx Last Taken 08/07/23] collagenase clostridium histo. 250 unit/gram topical ointment (Santyl) 1 applic topical DAILY wound #90 grams 07/22/23 [Rx Last Taken Unknown] oxybutynin chloride 10 mg tablet,extended release 24 hr 10 mg PO DAILY Bladder 08/14/23 [History Last Taken 08/19/23] cefdinir 300 mg capsule 300 mg PO BID antibiotic #6 caps 08/19/23 [Rx Last Taken Unknown] warfarin 2 mg tablet 4 mg PO MOTUWETHFR Blood thinner 08/19/23 [History Last Obed en Unknown] Allergy/AdvReac Type Severity Reaction Status Date / Time amoxicillin trihydrate AdvReac Severe Vomiting Verified 08/20/23 16:11 [From Augmentin] lidocaine AdvReac Severe Other Verified 08/20/23 16:11 Penicillins AdvReac Severe Vomiting Verified 08/20/23 16:11 potassium clavulanate AdvReac Severe Vomiting Verified 08/20/23 16:11 [From Augmentin] Family History Father , age 86 CAD (coronary artery disease) Sister Asthma Mother Valvular heart disease Surgical History H/O coronary artery bypass surgery (01/15/11) History of appendectomy History of cholecystectomy History of coronary artery stent placement (06/17/11) History of electrophysiologic study (01/21/11) History of hysterectomy History of mitral valve repair (01/15/11) History of tonsillectomy nerve ablation for pain management Presence of permanent cardiac pacemaker (12/21/21) Social History household members: family housing: house Smoking Status: Never smoker alcohol intake: never substance use type: does not use caffeine: Yes Type: coffee Number of servings: 2 what type of physical activity do you participate in: walking and weight training frequency: 5-6 times per week ROS ROS ED Constitutional Constitutional ED: Denies chills, fever(s) or sweats Eyes Eyes: Denies change in vision ENT ENT ED: Denies dysphagia or sore throat Cardiovascular Cardiovascular: Denies chest pain, leg edema, palpitations or racing heartbeat Respiratory/Chest Respiratory/Chest: Denies cough, dyspnea or dyspnea on exertion Gastrointestinal Gastrointestinal: Denies abdominal pain, diarrhea, nausea or vomiting Genitourinary Genitourinary ED: Denies dysuria, hematuria or urinary frequency Musculoskeletal Musculoskeletal: Denies back pain, extremity pain or neck pain Integumentary Denies rash or wounds Neurologic Neurologic: Denies headache(s), paresthesias or weakness EXAM Physical Exam Const Vital Signs: 08/20/23 16:11 08/20/23 16:11 08/20/23 18:11 Temperature 98.9 F 98.3 F Temperature Source Temporal Oral Pulse Rate 60 62 Respiratory Rate 18 24 H Blood Pressure 163/52 H 187/68 H Blood Pressure Mean 89 107 Pulse Ox 97 98 Oxygen Delivery Method Room Air Room Air 08/20/23 20:00 08/20/23 20:32 Temperature 98.1 F 98.1 F Temperature Source Oral Pulse Rate 60 60 Respiratory Rate 16 23 H Blood Pressure 186/80 H 186/80 H Blood Pressure Mean 115 115 Pulse Ox 95 98 Oxygen Delivery Method Room Air Positive well nourished and well developed Constitutional Narrative: More awake, answering questions. General Appearance ED: well developed and NAD HEENT Reports moist mucous membranes normocephalic and atraumatic Eyes PERRL, EOMs intact bilaterally and conjunctivae normal General Eye ED: Yes normal appearance of both eyes Neck no lymphadenopathy and supple General: Negative for tenderness Chest Wall Chest: Negative for tenderness Resp normal respiratory effort and normal air movement Effort and Inspection: symmetric chest movement; Negative for respiratory distress Cardio regular rate, regular rhythm and no murmurs Peripheral Pulses: pulses 2+ throughout GI normal to inspection, nondistended, normoactive bowel sounds and non-tender Palpation: Negative for guarding or rebound tenderness present Back/Spine no CVA tenderness and no thoracic nor lumbar tenderness Extremity normal to inspection General Extremety ED: Negative for edema or tenderness General Extremity: Negative for edema Neuro no sensory deficits noted Neuro Narrative: Alert to person and place states the year is 2019. Sensorium / Orientation: awake and alert Skin no rashes or lesions noted and no wounds MDM MDM MDM Narrative Medical decision making narrative: Interventions / MDM: Differential diagnosis: Confusion, Diagnosis considered but do not suspect: Intracranial hemorrhage however CT was negative from earlier. Infectious causes however workup was negative for this. No cough symptoms no hypoxia no leukocytosis for concerns of pneumonia. My EKG interpretation: Paced rhythm rate of 62, no ST or T wave changes. Imaging independently reviewed and interpreted by myself: 1 view chest x-ray interstitial edema versus infiltrates. External documents reviewed: Reviewed CT head from this morning no intracranial hemorrhage normal pressure hydrocephalus with patient with a history of this. Test considered but not ordered:N/A ED course: Patient concerns confusion today therefore sent down here for evaluation. She has no focal deficits. She had negative CT scan earlier today. Labs urine for cath and chest x-ray ordered. 1800: Fluids patient a lot more awake back to baseline per daughter. Labs white count 8 electrolytes are abnormal. Chest x-ray 1 view reported interstitial edema or infiltrates. She has no cough symptoms for concerns for infiltrates. No CHF symptoms. Awaiting urine. Urine results negative. Patient back to her baseline family stating more than her baseline and more communicative compared to a week ago. With improving symptoms patient discharged back to TCU. Do not feel additional CT is necessary as not likely delayed bleed. INR was subtherapeutic they have restarted her Coumadin at facility. Re-evaluation: stable Disposition discussed with patient/family/significant other: Patient and family Case discussed with consulting clinician: N/A This note was generated with [employer] dictation software. It may contain incorrect words, spelling, and punctuation that were not noted in checking the note before signing. Lab Data Attestation: I reviewed the patient's lab results. Labs: Laboratory Results - last 24 hr 08/20/23 08/20/23 08/20/23 16:15 17:30 19:25 WBC 8.1 RBC 4.50 Hgb 13.6 Hct 42.2 MCV 93.8 MCH 30.2 MCHC 32.2 RDW Std Deviation 46.0 H RDW Coeff of Patrice 13.6 Plt Count 218 MPV 10.4 Immature Gran % (Auto) 0.400 Neut % (Auto) 71.4 H Lymph % (Auto) 16.0 L [place] % (Auto) 10.7 H Eos % (Auto) 1.4 Baso % (Auto) 0.1 Absolute Neuts (auto) 5.8 Absolute Lymphs (auto) 1.30 Nucleated RBC % 0 PT 14.3 INR 1.1 Sodium 139 Potassium 4.0 Chloride 106 Carbon Dioxide 27.0 Anion Gap 6 BUN 17 Creatinine 1.03 H Estim Creat Clear Calc 41.02 Est GFR (MDRD) Af Amer 65 Est GFR (MDRD) Non-Af 54 L BUN/Creatinine Ratio 16.5 Glucose 112 H Calcium 9.5 Urine Color Yellow Urine Clarity Clear Urine pH 6.0 Ur Specific [place] 1.010 Urine Protein 15 H Urine Glucose (UA) Normal Urine Ketones 15 H Urine Occult Blood Negative Urine Nitrite Negative Urine Bilirubin Negative Urine Urobilinogen Normal Ur Leukocyte Esterase 100 H Urine RBC 0 SEEN Urine WBC 0-5 SEEN Ur Squamous Epith Cells 0 SEEN Urine Bacteria 0 SEEN Urine Mucus 0 SEEN POC Glucose 109 H Radiography Diagnostic Testing: Clinical Impression(s) from Imaging Studies Chest X-Ray 08/20/23 17:50 IMPRESSION: Interstitial edema or infiltrates. Electronically Signed: Agustin Vivas MD at 18:14 EDT , Discharge Plan Triage Chief Complaint: Alt LOC ED Provider: Bashir Levin Dx/Rx/DC Orders Clinical Impression: Subtherapeutic international normalized ratio (INR), Transient confusion Instructions: ED Confusion Prescriptions: No Action PreserVision AREDS-2 250-90-40-1 mg capsule 1 tab PO BID acyclovir 800 mg tablet 800 mg PO BID cholecalciferol (vitamin D3) 5,000 UNIT capsule 1 tab PO DAILY duloxetine 60 MG capsule,delayed release(DR/EC) 60 mg PO DAILY gabapentin 300 MG capsule 300 mg PO TID simvastatin 40 MG tablet 40 mg PO QHS arginine (L-arginine) 500 MG tablet 500 mg PO BID Hold Instructions: MD Ordered cyanocobalamin (vitamin B-12) 500 MCG tablet 1,000 mcg PO DAILY levothyroxine 50 MCG tablet 50 mcg PO DAILY Patient Comments: luis 2 on Friday duloxetine 30 mg capsule,delayed release(DR/EC) 30 mg PO QHS Patient Comments: takes @ HS isosorbide mononitrate 60 mg Tablet Extended Release 24 Hr 60 mg PO DAILY 30 Days Qty: 30 2RF sennosides-docusate sodium [Stool Softener-Stimulant Laxat] 8.6-50 mg Tablet 2 tab PO BID PRN PRN (Reason: Constipation) Qty: 0 0RF Santyl 250 unit/gram ointment 1 applic topical DAILY Qty: 90 0RF warfarin 2 mg tablet 4 mg PO MOTUWETHFR Protocol: Dose Management Condition: Friday Dose/Route: 4 mg Instruction: 2 x 2 mg tablets Condition: Friday Dose/Route: 4 mg Instruction: 2 x 2 mg tablets Condition: Friday Dose/Route: 4 mg Instruction: 2 x 2 mg tablets Condition: Friday Dose/Route: 4 mg Instruction: 2 x 2 mg tablets Condition: Dose/Route: 0 mg Instruction: 0 tablets Condition: Friday Dose/Route: 0 mg Instruction: 0 tablets Condition: Friday Dose/Route: 4 mg Instruction: 2 x 2 mg tablets Protocol Text: Adjustment Start Date: 08/07/23 INR Value: 4.0 INR Date: 08/07/23 Recheck Date: 08/14/23 Rx Instructions: 4 mg orally FRIDAY-Friday and (6mg) ON Friday and Friday. aspirin [Adult Aspirin Regimen] 81 mg tablet,delayed release (DR/EC) 81 mg PO DAILY oxybutynin chloride 10 mg tablet extended release 24hr 10 mg PO DAILY cefdinir 300 mg capsule 300 mg PO BID Qty: 6 0RF metoprolol tartrate 50 mg tablet 50 mg PO BID Qty: 1 0RF furosemide [Lasix] 40 mg tablet 40 mg PO BID Qty: 180 3RF spironolactone 25 mg tablet 12.5 mg PO DAILY Qty: 45 3RF Primary Care Provider: Susie Dang Referrals: Susie Dang DO [Primary Care Provider] - Activity Restrictions/Additional Instructions: Lab work all stable urine negative for infection. Chest x-ray noted congestion versus infiltrate however clinically no pneumonia. Clinically improved in the emergency department confirmed by family. CT head reviewed earlier negative for bleeds. Follow-up with At [facility]. Disposition Disposition: Home, Self Care Discharge Date/Time: 08/20/23 21:18
[2023-08-20 16:34] LABS: Bedside Glucose 109 mg/dL (74-106)
[2023-08-20] MEDS: 0.9% Normal Saline (500mL Bag) 500 ML 1000 ML IV (17:20)
[2023-08-20 17:40] LABS: Absolute Neutrophil Count 5.8 X10^3/uL (2.0-7.7); Basophil# 0.01 X10^3/uL; Basophil% 0.1 % (0-1); Eosinophil# 0.11 X10^3/uL; Eosinophils% 1.4 % (0-5); Hematocrit 42.2 % (37-47); Hemoglobin 13.6 g/dL (12.0-15.0); Mean Corp Hgb Conc 32.2 g/dL (32-36); Mean Corpuscular Hgb 30.2 pg (27.0-32.0); Mean Corpuscular Volume 93.8 fL (81-99); Mean Platelet Vol. 10.4 fl (6.2-12.0); Monocyte# 0.87 X10^3/uL; Monocyte% 10.7 % (0-10); NRBC Flagged by Analyzer 0 % (0-5); Neutrophil # 5.78 X10^3/uL (2.7-7.7); Neutrophil % 71.4 % (47-70); Platelet Count 218 K/mm3 (150-450); RBC Distribution Width CV 13.6 % (11.6-14.6); White Blood Count 8.1 K/mm3 (4.4-11.0)
--- NOTE | 2023-08-20 17:50 | RAD_ITS ---
STUDY: X-RAY CHEST REASON FOR EXAM: Female, 87 years old. Altered mental status TECHNIQUE: Single AP portable view of the chest. COMPARISON: August 14, 2023 FINDINGS: Dual-chamber pacer device on the left. There are mild lower lung interstitial increased opacities. There are granulomatous calcifications. There is no demonstrated pleural abnormality. Sternal cerclage wires are present from a prior sternotomy. Normal mediastinum and miguel. Normal visualized pulmonary arteries. Normal visualized aortic arch and descending thoracic aorta. Normal visualized thoracic spine. Normal visualized ribs, clavicles, and shoulders. There is no demonstrated abnormality of the visualized soft tissue structures of the upper abdomen. RAD/Chest 1 View (Portable) IMPRESSION: Interstitial edema or infiltrates. Electronically Signed: Agustin Vivas MD at 18:14 EDT ,
[2023-08-20 17:52] LABS: International Normalized Ratio 1.1; Prothrombin Time (Protime)PT. 14.3 SECONDS (11.7-14.9)
[2023-08-20 17:53] LABS: Anion Gap 6 (5-15); BUN 17 mg/dL (7-18); BUN/Creat Ratio 16.5 RATIO (10-20); Calcium,Total 9.5 mg/dL (8.5-10.1); Chloride 106 mmol/L (98-107); Creatinine, Serum 1.03 mg/dL (0.55-1.02); EST Glomerular Filtration Rate 54 mL/min (>60); Est Glom Filt Rate - Afr Amer 65 mL/min (>60); Estimated Creatinine Clearance 41.02 ml/min; Glucose 112 mg/dL (74-106); Sodium Level 139 mmol/L (136-145)
[2023-08-20 18:11] VITALS: BP 187/68; PULSE 62; RESP 24; O2SAT 98
[2023-08-20 19:35] LABS: Bacteria 0 SEEN /hpf (None Seen); Mucous, Urine 0 SEEN /hpf (<or=2+); Red Blood Cells-Urine 0 SEEN /hpf (0-5); Squamous Epithelial Cells - UA 0 SEEN /hpf (5-10)
[2023-08-20 19:48] LABS: Color, Urine Yellow (Yellow); Glucose, Dipstick Normal (Normal); Ketone-Dipstick 15 mg/dl (Negative); Leukocyte Esterase-Dipstick 100 /ul (Negative); Nitrite-Dipstick Negative (Negative); Occult Blood-Urine Negative /ul (Negative); Protein-Dipstick 15 mg/dl (Negative); Urine Bilirubin Dipstick Negative (Negative); Urine Clarity Clear (Clear); Urine Urobilinogen Normal (Normal)
[2023-08-20 19:58] LABS: White Blood Cells 0-5 SEEN /hpf (0-5)
[2023-08-20 20:00] VITALS: BP 186/80; PULSE 60; RESP 16; TEMP 36.7; O2SAT 95
[2023-08-20 20:32] VITALS: BP 186/80; PULSE 60; RESP 23; TEMP 36.7; O2SAT 98
== END 2023-08-20 21:18 | disposition home or self-care (01) ==
PROVIDERS: Emergency Provider Emergency Medicine; PCP Internal Medicine; Visit Provider Emergency Medicine
DX: R41.0 Disorientation, unspecified (principal); I50.32 Chronic diastolic (congestive) heart failure; I11.0 Hypertensive heart disease with heart failure; I48.91 Unspecified atrial fibrillation; E11.51 Type 2 diabetes mellitus with diabetic peripheral angiopathy without gangrene; S09.90XA Unspecified injury of head, initial encounter; R47.02 Dysphasia; Z79.01 Long term (current) use of anticoagulants; I25.10 Atherosclerotic heart disease of native coronary artery without angina pectoris; I25.810 Atherosclerosis of coronary artery bypass graft(s) without angina pectoris; W19.XXXA Unspecified fall, initial encounter; E78.5 Hyperlipidemia, unspecified; Z79.899 Other long term (current) drug therapy; Z79.890 Hormone replacement therapy; D68.8 Other specified coagulation defects
CPT/HCPCS: 70450; 71045; 80048; 81001; 82962; 85025; 85610; 93005; 99285; J7040; P9612; A4216

== ENCOUNTER → 2023-08-20 | Outpatient (CLI) | payer MEDICARE, OTHER, SELFPAY ==
--- NOTE | 2023-08-20 04:20 | CT_ITS ---
STUDY: CT BRAIN WITHOUT CONTRAST REASON FOR EXAM: Female, 87 years old. FALL RADIATION DOSAGE (If Supplied By Facility): CTDIvol = ( 44.99 ) mGy, DLP = ( 914.22 ) mGycm TECHNIQUE: Transaxial CT imaging of the brain was performed without administration of intravenous contrast material. Individualized dose optimization techniques were used for this CT. COMPARISON: Comparison is made with prior study dated August 14, 2023. FINDINGS: Normal soft tissue structures. Normal calvarium. There is disproportionate enlargement of the lateral and third ventricles, as compared to the extra-axial spaces. The findings suggest normal pressure hydrocephalus (NPH). There are areas of decreased attenuation within the white matter tracts of the supratentorial brain, consistent with microvascular disease changes. Stable with old lacunar infarct in the right basal ganglion. Normal brainstem. Normal cerebellum. There is no intracranial hemorrhage. There are no findings of an acute ischemic infarction. Atherosclerotic calcific plaques of the vertebral arteries and cavernous portions of the internal carotid arteries bilaterally. Normal visualized paranasal sinuses. CT/Brain/Head without Contrast IMPRESSION: Findings suggestive of a normal pressure hydrocephalus. Electronically Signed: Denis Casillas MD at 8:56 EDT ,
== END | disposition home or self-care (01) ==
LOC: CT 04:20
PROVIDERS: PCP Internal Medicine; Referring Provider Family Medicine Geriatric Medicine; Visit Provider Family Medicine Geriatric Medicine
DX: S09.90XA Unspecified injury of head, initial encounter (principal); R47.02 Dysphasia
CPT/HCPCS: 70450